=== PATIENT | female | born 1945 | race Caucasian/White ===

== ENCOUNTER 2016-11-16 11:15 | Inpatient (IN) | payer OTHER ==
[~2016-11-16] VITALS: Ht 172.7 cm; Wt 112.9 kg
--- NOTE | 2016-11-16 11:23 | ED GI/GU/ABDOMINAL COMPLAINT ---
History of Present Illness General Chief Complaint: General Adult Stated Complaint: CONSTIPATION, R/O GLUTEAL ABSCESS Source: patient, family, old records, EMS Exam Limitations: no limitations Vital Signs & Intake/Output Vital Signs & Intake/Output Vital Signs Date Time Temp Pulse Resp B/P Pulse O2 O2 Flow FiO2 Ox Delivery Rate 11/16 1929 97.8 91 21 112/76 92 11/16 1856 98.8 82 20 148/67 95 Room Air 11/16 1611 98.7 84 22 144/65 94 Room Air 11/16 1345 98.4 86 20 142/62 95 Room Air 11/16 1140 97.1 93 18 137/65 95 Room Air Allergies Coded Allergies: aspirin (UNKNOWN 11/16/16) Reconcile Medications Amoxicillin/Clavulanate Potass (Amox-Clav 875-125 MG Tablet) 875 MG-125 MG TABLET ANTIBIOTIC, INFECTION (Reported) Gabapentin 100 MG CAPSULE PAIN CONTROL (Reported) Hydrocodone/Acetaminophen (Hydrocodon-Acetaminophn 10-325) 10 MG-325 MG TABLET PAIN CONTROL (Reported) Triage Nurses Notes Reviewed? yes ? N Is pt currently ? No Onset: Abrupt Duration: week(s):, constant, getting worse Timing: recent history Quality/Severity: aching, sharpness Severity Numbers: 10 Location: rectal Radiation: no radiation Activities at Onset: none Prior Abdominal Problems: none No Modifying Factors: none HPI: 71-year-old female with history of rectal cancer requiring ileostomy in 2005 with reversal in 2006 presents to emergency room complaining of a 2 week history of left-sided rectal and buttock pain has been constant and progressively worsening associated with intermittent episodes of diarrhea and constipation for which she is currently on [id number] medications. The patient denies any recent fevers or chills however reports a generalized weakness and no appetite. no urinary sx she was seen by colorectal Dr. Kandy Noyola 2 weeks ago and paced on augmentin and was advised to have outpt ct and bloodwork obtained which pt has not had yet performed. (DAKOTAH ALVARADO,LIA) Past History Travel History Traveled to [place] past 21 day No Medical History Any Pertinent Medical History? see below for history Cardiovascular: hypertension Cancer(s): rectal ca Influenza Vaccine: 09/08/06 Surgical History Surgical History: lower anterior resection with diverting ileostomy 2006 reversal in 2006 Psychosocial History What is your primary language Latvian Tobacco Use: Never used Family History Hx Contributory? No (LIA COBOS) Review of Systems Review of Systems Constitutional: Reports: see HPI. All Other Systems: Reviewed and Negative Comments Review of systems: See HPI, All other systems negative. Constitutional, no chills no fever, no malaise HEENT: No visual changes no sore throat no congestion Cardiovascular: No chest pain , no palpitation Skin, no rashes, no change in skin Respiratory: No dyspnea no cough no sputum GI: No nausea no vomiting, diarrhea, constipation : No dysuria Muscle skeletal: No joint pain, no back pain, no neck pain, Neurologic: No numbness no headache Psych: No stress Heme/endocrine: No bruising no bleeding Immunology: No lymphadenopathy (LIA COBOS) Physical Exam Physical Exam General Appearance: well developed/nourished, alert, awake Gastrointestinal: soft, non-tender Comments: Well-developed well-nourished person in no acute distress HEENT: Normal EENT exam; PERRL, EOMI, HEAD is atraumatic. moist mucous membranes. Neck: Supple, normal range of motion Back: Nontender, no CVA tenderness. Full range of motion Cardiovascular: Regular rate and rhythms no murmurs rubs Respiratory: No respiratory distress. Patient speaking in full complete sentences. Breath sounds clear to auscultation bilaterally: NO W/R/R Abdomen: Soft, nontender nondistended, no appreciable organomegaly. Normal bowel sounds. No rebound/guarding Rectal: tender. Heme negative stool. No mass/hemorrhoid, no fissure. no noted abscess no induration or erythema noted to the buttocks or perirectal area Extremity: No edema, full range of motion of extremities Neuro: Alert oriented x3, motor sensory normal, There were no obvious focal neurologic abnormalities. Skin: No appreciable rash on exposed skin, skin is warm and dry. Psych: Mood and affect is normal, memory and judgment is normal. Core Measures ACS in differential dx? No Severe Sepsis Present: No Septic Shock Present: No (LIA COBOS) Progress Differential Diagnosis: bowel obstruction, colon cancer, diverticulitis, ischemic bowel, inflamm bowel dis, MALIGNANCY PERIRECTAL ABSCESS Plan of Care: Orders Procedure Date/time Status Nothing by Mouth 11/17 B Active CBC WITHOUT DIFFERENTIAL 11/17 600 Active BASIC ELECTROLYTES PLUS BUN&CR 12/19 0600 Active Pathway - chart 11/16 1707 Active Patient Data 11/16 1707 Active Code Status 11/16 1707 Active Admit to inpatient 11/16 1653 Active [place], Insertion/Removal/Asses 11/16 1647 Active CULTURE,URINE 11/16 1647 Active Add-on Test (ER Only) 11/16 1634 Active EKG 11/16 1622 Active PARTIAL THROMBOPLASTIN TIME 11/16 1155 Complete PROTHROMBIN TIME 11/16 1155 Complete Saline Lock 11/16 1142 Active BLOOD CULTURE 11/16 1142 Active COMPREHENSIVE METABOLIC PANEL 11/16 1142 Complete CBC WITHOUT DIFFERENTIAL 11/16 1142 Complete VTE Mechanical Prophylaxis 11/16 UNK Active Vital Signs 11/16 UNK Active Intake & Output 11/16 UNK Active [place], Insertion/Removal/Asses 11/16 UNK Active Activity/Ambulation 11/16 UNK Active Current Medications Sig/Dontae Start time Last Medication Dose Stop Time Status Admin Pantoprazole Sodium 40 MG DAILY 11/17 1000 AC (Protonix) Heparin Sodium 5,000 UNIT Q8 11/16 2200 AC (Porcine) Ampicillin Sodium/ 3,000 MG Q6 11/16 1800 AC Sulbactam Sodium (Unasyn) Sodium Chloride 100 ML (Normal Saline 0.9%) Ondansetron HCl 4 MG Q6P PRN 11/16 1715 AC (Zofran) Acetaminophen 650 MG Q6PRN PRN 11/16 1700 AC (Tylenol) Laboratory Tests 11/16/16 1155: Anion Gap 9, Estimated GFR > 60, BUN/Creatinine Ratio 12.9, Glucose 104 H, Calcium 8.8, Total Bilirubin 0.8, AST 10 L, ALT 16, Alkaline Phosphatase 99, Total Protein 6.6, Albumin 3.3 L, Globulin 3.3, Albumin/Globulin Ratio 1.0 L, PT 13.2 H, INR 1.26 H, APTT 27, CBC w Diff MAN DIFF ORDERED, RBC 2.51 L, MCV 106.1 H, MCH 34.6 H, RDW 18.2 H, MPV 10.0, Gran % 74.5, Lymphocytes % 10.7 L , Monocytes % 7.6, Eosinophils % 2.3, Basophils % 4.9 H, Absolute Granulocytes 4.0, Segmented Neutrophils 61, Band Neutrophils 12 H, Absolute Lymphocytes 0.6 L, Lymphocytes 22, Monocytes 3, Absolute Monocytes 0.4, Absolute Eosinophils 0.1 , Basophils 2, Absolute Basophils 0.3, Platelet Estimate ADEQUATE, Polychromasia 1+, Hypochromic-Microcytic 2+, Poikilocytosis 2+, Anisocytosis 1+, Macrocytic Cells 1+, PUBS MCHC 32.6 L Microbiology 11/16 1647 URINE ROUT: Urine Culture - ORD 11/16 1210 BLOOD: Blood Culture - RECD 11/16 1155 BLOOD: Blood Culture - RECD Labs ordered old records reviewed patient initially with Dilaudid 1 mg IV IV fluids CAT scan ordered case discussed with Dr. Turcios 11/16/2016 12:35:09 PM repeat evaluation patient reports pain has resolved with Dilaudid will continue to monitor I discussed the patient's family at length all of her lab results she has no history of anemia guaiac was negative we'll continue to monitor pending CAT scan patient reports improvement in pain with Dilaudid Repeat evaluation patient is resting in no apparent distress discussed with her family at length all of her CAT scan findings call was placed to her colorectal surgeon i spoke with dr cueva- will keep pt npo, advised unasyn iv, possible OR tomorrow. surgical pa malia gordon in dept to see pt will amdit to surgery. case d/w dr turcios. (DAKOTAH ALVARADO,LIA) Diagnostic Imaging: Viewed by Me: CT Scan. Discussed w/RAD: CT Scan. Radiology Impression: PATIENT: CARINE PAYTON PRESENT AGE: 71 PATIENT ACCOUNT NO: [id number] : 44 LOCATION: [facility] ORDERING PHYSICIAN: LIA ALVARADO SERVICE DATE: 11/16/16 EXAM TYPE: CAT - CT ABD & PELVIS W ORAL & IV CO EXAMINATION: CT ABDOMEN AND PELVIS WITH CONTRAST CLINICAL INFORMATION: Left buttock/rectal pain. History of rectal cancer. Evaluate for a perirectal abscess. COMPARISON: CT abdomen/pelvis dated 2011. TECHNIQUE: Multidetector volumetric imaging was performed of the abdomen and pelvis following the administration of oral and 95 mL of Optiray 320 intravenous contrast. Sagittal and coronal reformatted images were obtained on the technologist's workstation. DLP: 1144.49 mGy-cm. FINDINGS: LUNG BASES: There are mild bibasilar dependent atelectatic changes. The lung bases are otherwise clear. LIVER, GALLBLADDER, AND BILIARY TREE: The liver is normal in size, shape, and attenuation. No focal hepatic lesion or biliary ductal dilatation is present. The gallbladder is unremarkable with no evidence of radiopaque gallstones, gallbladder wall thickening, or obvious pericholecystic inflammatory changes. PANCREAS: Unremarkable. SPLEEN: Unremarkable. ADRENAL GLANDS: Unremarkable. KIDNEYS AND URETERS: The kidneys are normal in size, shape, and attenuation. No hydronephrosis, hydroureter, or calculi seen. No perinephric stranding. BLADDER: Unremarkable. GASTROINTESTINAL TRACT: There is no large or small bowel obstruction. There is mild fatty change of the descending colon and cecum bowel wall which could be the sequela of prior inflammation. If there is clinical concern, direct visualization via colonoscopy could be considered. There is interval development of a new perirectal abscess located posterior to the rectum which abuts the sacrum. This contains air and stool and measures approximately 7.9 x 6.5 x 12.2 cm. There is communication anteriorly with the rectum which measures approximately 2 cm in greatest diameter, seen on sagittal image 78/155 as well as axial image 613/929. There is a mildly enhancing wall as well as mild adjacent fat stranding. ABDOMINAL WALL: No significant hernia is appreciated. LYMPH NODES: Normal. VASCULAR: There are scattered atherosclerotic calcifications throughout the abdominal aorta and its branch vessels. There is no aneurysmal dilatation or dissection. PELVIC VISCERA: Unremarkable. OSSEOUS STRUCTURES: There is no lytic or blastic osseous lesion. There is mild lucency of the sacrum and coccyx, which could be related to prior treatment for the reported history of rectal cancer. IMPRESSION: 1. New perirectal abscess located posteriorly between the rectum and the sacrum. There is communication with the rectum posteriorly. The abscess contains air and stool. Mildly enhancing wall as well as adjacent fat stranding. 2. No large or small bowel obstruction. Mild fatty infiltration of the ascending colon and cecum bowel wall, which could be the sequela of prior inflammation. If there is clinical concern, direct visualization could help further characterize. DICTATED BY: KRYSTAL BERNSTEIN MD DATE/TIME DICTATED:11/16/161451 MATERIAL SPECIALIST:JESENIA DATE/TIME TRANSCRIBED:11/16/161451 CONFIDENTIAL, DO NOT COPY WITHOUT APPROPRIATE AUTHORIZATION. <Electronically signed in Other Vendor System> SIGNED BY: KRYSTAL BERNSTEIN MD 11/16/16 1600 Initial ED EKG: normal intervals, normal p-waves, normal QRS complex, normal sinus rhythm (80) Prior EKG: unchanged (2006) (LIA COBOS) Departure Departure Time of Disposition: 1700 Disposition: STILL A PATIENT Condition: Stable Clinical Impression Primary Impression: Perirectal abscess Referrals: NGOZI AYALA MD Referred to [facility] as new patient No Departure Forms: Customer Survey General Discharge Information Admission Note Spoke With: JARED CUEVA MD Documentation of Exam: Documentation of any treatments & extenuating circumstances including Concerns Regarding Discharge (functional status, medication knowledge or non-compliance, living conditions, etc.) that warrant an admission rather than observation: COLORECTAL SURG EVAL, TREND LABS, IV ABX, PREMATURE DISCHARGE WOULD BE MEDICALLY HARMFUL. (LIA COBOS) PA/FUR SORTER Co-Sign Statement Statement: ED Attending supervision documentation- [X] I saw and evaluated the patient. I have also reviewed all the pertinent lab results and diagnostic results. I agree with the findings and the plan of care as documented in the PA's/FUR SORTER's documentation. [X] I have reviewed the ED Record and agree with the PA's/FUR SORTER's documentation. [] Additions or exceptions (if any) to the PAs/FUR SORTER's note and plan are summarized below: [] (CYNTHIA CONNER,MARCELLO Clay)
--- NOTE | 2016-11-16 11:41 | NUR ---
PT TO ROOM21 BIBA FROM HOME FOR C/O POSSIBLE ABSCESS TO RECTAL AREA [id number], PAIN TO AREA, +TENDERNESS, NO REDNESS NOTED, ALSO C/O GENERAL WEAKNESS, NO APPETITE, CONSTIPATION. PT ON AUGMENTIN AND VICODIN FROM HER PCP. HX REDTAL CA,HTN,ASTHMA,PNEUMONIA. PT AFEBRILE,VSS. CHRISTIANO CLAIRE AT BEDSIDE FOR PT EVAL.
[2016-11-16] MEDS ORDERED: HYDROCODON-ACE1 EAC1 (11:51)
[2016-11-16] MEDS ORDERED: GABAPENTIN100 M2 (11:51)
[2016-11-16] MEDS ORDERED: AMOX-CLAV 875-1 EACH (11:52)
--- NOTE | 2016-11-16 12:02 | NUR ---
LABS DRAWN AND SENT (BLUE,SST,PINK,LAV,PERALTA)
[2016-11-16 12:07] LABS: ABSOLUTE BASOPHIL COUNT 0.3 /CUMM (0.0-0.2); ABSOLUTE EOSINOPHIL COUNT 0.1 /CUMM (0.0-0.7); ABSOLUTE LYMPH COUNT 0.6 /CUMM (1.2-3.4); ABSOLUTE MONOCYTE COUNT 0.4 /CUMM (0.10-0.60); BASOPHIL % 4.9 % (0.0-2.0); EOSINOPHIL % 2.3 % (0-5); GRANULOCYTE % 74.5 % (42.2-75.2); HEMATOCRIT 26.6 % (37-47); MEAN CORPUSCULAR HGB 34.6 PG (27.0-31.0); MEAN CORPUSCULAR HGB CONC 32.6 G/DL (33.0-37.0); MEAN CORPUSCULAR VOLUME 106.1 FL (81.0-99.0); PLATELET COUNT 321 /CUMM (130-400); RBC DISTRIBUTION WIDTH 18.2 % (11.5-14.5); RED BLOOD CELL CT 2.51 /CUMM (4.20-5.40); WHITE BLOOD CELL COUNT 5.4 /CUMM (4.8-10.8)
--- NOTE | 2016-11-16 12:16 | NUR ---
IV EST, PT MEIDCATED WITH DILAUDID PER EMAR. NS INFUSING PER EMAR. 2ND BC DRAWN AND SENT TO LAB.
--- NOTE | 2016-11-16 13:53 | NUR ---
PT C/O PAIN CAME BACK 06/08 NOW, MEDICATED WITH DILAUDID PER ORDER.
--- NOTE | 2016-11-16 14:11 | NUR ---
PT TO CAT SCAN BY STRETCHER.
--- NOTE | 2016-11-16 14:30 | NUR ---
PT RETURNED FROM CAT SCAN. AWAITING RESULTS.
--- NOTE | 2016-11-16 16:00 | CT SCAN REPORT ---
EXAMINATION: CT ABDOMEN AND PELVIS WITH CONTRAST CLINICAL INFORMATION: Left buttock/rectal pain. History of rectal cancer. Evaluate for a perirectal abscess. COMPARISON: CT abdomen/pelvis dated 03/31/2012. TECHNIQUE: Multidetector volumetric imaging was performed of the abdomen and pelvis following the administration of oral and 95 mL of Optiray 320 intravenous contrast. Sagittal and coronal reformatted images were obtained on the technologist's workstation. DLP: 1144.49 mGy-cm. FINDINGS: LUNG BASES: There are mild bibasilar dependent atelectatic changes. The lung bases are otherwise clear. LIVER, GALLBLADDER, AND BILIARY TREE: The liver is normal in size, shape, and attenuation. No focal hepatic lesion or biliary ductal dilatation is present. The gallbladder is unremarkable with no evidence of radiopaque gallstones, gallbladder wall thickening, or obvious pericholecystic inflammatory changes. PANCREAS: Unremarkable. SPLEEN: Unremarkable. ADRENAL GLANDS: Unremarkable. KIDNEYS AND URETERS: The kidneys are normal in size, shape, and attenuation. No hydronephrosis, hydroureter, or calculi seen. No perinephric stranding. BLADDER: Unremarkable. GASTROINTESTINAL TRACT: There is no large or small bowel obstruction. There is mild fatty change of the descending colon and cecum bowel wall which could be the sequela of prior inflammation. If there is clinical concern, direct visualization via colonoscopy could be considered. There is interval development of a new perirectal abscess located posterior to the rectum which abuts the sacrum. This contains air and stool and measures approximately 7.9 x 6.5 x 12.2 cm. There is communication anteriorly with the rectum which measures approximately 2 cm in greatest diameter, seen on sagittal image 78/155 as well as axial image 613/929. There is a mildly enhancing wall as well as mild adjacent fat stranding. ABDOMINAL WALL: No significant hernia is appreciated. LYMPH NODES: Normal. VASCULAR: There are scattered atherosclerotic calcifications throughout the abdominal aorta and its branch vessels. There is no aneurysmal dilatation or dissection. PELVIC VISCERA: Unremarkable. OSSEOUS STRUCTURES: There is no lytic or blastic osseous lesion. There is mild lucency of the sacrum and coccyx, which could be related to prior treatment for the reported history of rectal cancer. IMPRESSION: 1. New perirectal abscess located posteriorly between the rectum and the sacrum. There is communication with the rectum posteriorly. The abscess contains air and stool. Mildly enhancing wall as well as adjacent fat stranding. 2. No large or small bowel obstruction. Mild fatty infiltration of the ascending colon and cecum bowel wall, which could be the sequela of prior inflammation. If there is clinical concern, direct visualization could help further characterize.
--- NOTE | 2016-11-16 16:40 | NUR ---
PT MEIDCATED WITH DILAUDID, UNASYN AND NS INFUSING PER EMAR. SURGICAL PA AT BEDSIDE FOR PT EVAL.
--- NOTE | 2016-11-16 16:52 | Admission Core Measures ---
Admission Lab Results I reviewed the following labs: Laboratory Tests 11/16 1155 Chemistry Sodium (137 - 145 mmol/L) 138 Potassium (3.5 - 5.1 mmol/L) 4.1 Chloride (98 - 107 mmol/L) 101 Carbon Dioxide (22 - 30 mmol/L) 28 Anion Gap (5 - 16) 9 BUN (7 - 17 mg/dL) 9 Creatinine (0.5 - 1.0 mg/dL) 0.7 Estimated GFR (>60 ml/min) > 60 BUN/Creatinine Ratio (7 - 25 %) 12.9 Glucose (65 - 99 mg/dL) 104 H Calcium (8.4 - 10.2 mg/dL) 8.8 Total Bilirubin (0.2 - 1.3 mg/dL) 0.8 AST (14 - 36 U/L) 10 L ALT (9 - 52 U/L) 16 Alkaline Phosphatase (<127 U/L) 99 Total Protein (6.3 - 8.2 g/dL) 6.6 Albumin (3.5 - 5.0 g/dL) 3.3 L Globulin (1.9 - 4.2 gm/dL) 3.3 Albumin/Globulin Ratio (1.1 - 2.2 %) 1.0 L Coagulation PT Pending INR Pending APTT Pending Hematology CBC w Diff MAN DIFF ORDERED WBC (4.8 - 10.8 /CUMM) 5.4 RBC (4.20 - 5.40 /CUMM) 2.51 L Hgb (12.0 - 16.0 G/DL) 8.7 L Hct (37 - 47 %) 26.6 L MCV (81.0 - 99.0 FL) 106.1 H MCH (27.0 - 31.0 PG) 34.6 H RDW (11.5 - 14.5 %) 18.2 H Plt Count (130 - 400 /CUMM) 321 MPV (7.4 - 10.4 FL) 10.0 Gran % (42.2 - 75.2 %) 74.5 Lymphocytes % (20.5 - 51.1 %) 10.7 L Monocytes % (1.7 - 9.3 %) 7.6 Eosinophils % (0 - 5 %) 2.3 Basophils % (0.0 - 2.0 %) 4.9 H Absolute Granulocytes (1.4 - 6.5 /CUMM) 4.0 Segmented Neutrophils (42.2 - 75.2 %) 61 Band Neutrophils (0.0 - 5.0 %) 12 H Absolute Lymphocytes (1.2 - 3.4 /CUMM) 0.6 L Lymphocytes (20.5 - 51.1 %) 22 Monocytes (1.7 - 9.3 %) 3 Absolute Monocytes (0.10 - 0.60 /CUMM) 0.4 Absolute Eosinophils (0.0 - 0.7 /CUMM) 0.1 Basophils (0.0 - 2.0 %) 2 Absolute Basophils (0.0 - 0.2 /CUMM) 0.3 Platelet Estimate (ADEQUATE) ADEQUATE Polychromasia 1+ Hypochromic-Microcytic 2+ Poikilocytosis 2+ Anisocytosis 1+ Macrocytic Cells 1+ PUBS MCHC (33.0 - 37.0 G/DL) 32.6 L Acute Coronary Syndrome Inclusion Criteria ACS Diagnosis No Inpatient Core Measures LDL Reminder: If No, please order W/I first 24hr of stay Congestive Heart Failure Inclusion Criteria CHF Diagnosis No Cerebrovascular accident Inclusion Criteria CVA/TIA Diagnosis No Inpatient Core Measures Bedside Swallow Eval Reminder: If BSE failed, place ST order Antithrombotic Reminder: Order Antithrombotic Medication by end of day 2 Antithrombotic Reminder: Document Reason Antithrombotic Not ordered by end of day 2 AFIB/Flutter Reminder: If Present, add to problem list AFIB/Flutter Reminder: Order Anticoag Medication for pts with AFIB/Flutter Atherosclerosis Reminder: If Present, add to problem list LDL Reminder: If No, please order W/I first 24hr of stay PT Order Reminder: If No, please order Venous thromboembolism Inpatient Core Measures VTE Risk Factors: Age > 40, Cancer/chemo/oth therapy VTE Prophylaxis Ordered Inpt Mech & Pharm No Mech VTE prophylaxis d/t No contraindications No VTE Pharm Prophylaxis d/t No contraindications Inclusion Criteria - Per Current guidelines, there needs to be overlap - treatment for the first 5 days of Warfarin therapy. - Parenteral Anticoagulation (IV or SC) needs to be - given along with Warfarin therapy. VTE Diagnosis No VTE Type NONE VTE Confirmed by (Test) NONE Problem List As ranked by this Provider includes Assessment & Plan 1. Perirectal abscess
--- NOTE | 2016-11-16 17:00 | History & Physical Pre-Op ---
LESLEY VINCENT 11/16/16 1651: General Information and HPI MD Statement: I have seen and personally examined CARINE PAYTON and documented this H&P. The patient is a 71 year old F who presented with a patient stated chief complaint of active pain for 2 weeks. Source of Information: patient Exam Limitations: no limitations History of Present Illness: 71-year-old female known to colorectal surgical service has been treated conservatively for a questionable perirectal abscess over the past 2-3 weeks. The patient complains of about 3 weeks of perirectal discomfort with associated difficulty defecating and urinating. The patient initially saw her primary care Dr. Walters who started her on a regiment of by mouth antibiotics and when necessary pain medications. The patient was scheduled to see her colorectal surgery group and did last week who continued her on antibiotics and changed her pain medications. She was scheduled for outpatient radiology and laboratory studies but her pain became significantly worse over the past day or 2 so she came to our emergency room today. She reports her pain as constant and sharp in nature located in her perianal area tenderness significantly increased when she tries to defecate. Her bowel movements have been loose and spontaneous. She complains of associated anorexia and night sweats but denies any fevers. Additionally, she reports difficulty voiding and a feeling of increased pressure in her lower abdomen. She knows my to the current time. Allergies/Medications Allergies: Coded Allergies: aspirin (UNKNOWN 11/16/16) Home Med list Amoxicillin/Clavulanate Potass (Amox-Clav 875-125 MG Tablet) 875 MG-125 MG TABLET ANTIBIOTIC, INFECTION (Reported) Gabapentin 100 MG CAPSULE PAIN CONTROL (Reported) Hydrocodone/Acetaminophen (Hydrocodon-Acetaminophn 10-325) 10 MG-325 MG TABLET PAIN CONTROL (Reported) Past History Medical History Cardiovascular: hypertension Respiratory: asthma, pneumonia Cancer(s): rectal ca Influenza Vaccine: 09/08/06 Surgical History Pertinent Surgical History: lower anterior resection with diverting ileostomy 2006 reversal in 2006, with creation of an ileostomy and subsequent reversal in , tonsillectomy Past Family/Social History Psychosocial History Where Do You Live? Home Who Do You Live With? spouse Services at Home None Smoking Status: Former Smoker ETOH Use: denies use Illicit Drug Use: denies illicit drug use Functional Ability ADLs Independent: dressing, eating, toileting, bathing. Ambulation: independent IADLs Independent: shopping, housework, finances, food prep, telephone, transportation , medication admin. Employment History Employment: Retired Review of Systems Review of Systems Cardiovascular: Denies: chest pain, palpitations. Respiratory: Denies: cough, short of breath. Exam & Diagnostic Data Last 24 Hrs of Vital Signs/I&O Vital Signs Date Time Temp Pulse Resp B/P Pulse O2 O2 Flow FiO2 Ox Delivery Rate 11/16 1611 98.7 84 22 144/65 94 Room Air 11/16 1345 98.4 86 20 142/62 95 Room Air 11/16 1140 97.1 93 18 137/65 95 Room Air Intake & Output 11/16 1600 11/16 0800 11/16 0000 Intake Total 1000 Output Total Balance 1000 Intake, IV 1000 Patient 220 lb Weight Laboratory Tests 11/16 1155 Chemistry Sodium (137 - 145 mmol/L) 138 Potassium (3.5 - 5.1 mmol/L) 4.1 Chloride (98 - 107 mmol/L) 101 Carbon Dioxide (22 - 30 mmol/L) 28 Anion Gap (5 - 16) 9 BUN (7 - 17 mg/dL) 9 Creatinine (0.5 - 1.0 mg/dL) 0.7 Estimated GFR (>60 ml/min) > 60 BUN/Creatinine Ratio (7 - 25 %) 12.9 Glucose (65 - 99 mg/dL) 104 H Calcium (8.4 - 10.2 mg/dL) 8.8 Total Bilirubin (0.2 - 1.3 mg/dL) 0.8 AST (14 - 36 U/L) 10 L ALT (9 - 52 U/L) 16 Alkaline Phosphatase (<127 U/L) 99 Total Protein (6.3 - 8.2 g/dL) 6.6 Albumin (3.5 - 5.0 g/dL) 3.3 L Globulin (1.9 - 4.2 gm/dL) 3.3 Albumin/Globulin Ratio (1.1 - 2.2 %) 1.0 L Coagulation PT Pending INR Pending APTT Pending Hematology CBC w Diff MAN DIFF ORDERED WBC (4.8 - 10.8 /CUMM) 5.4 RBC (4.20 - 5.40 /CUMM) 2.51 L Hgb (12.0 - 16.0 G/DL) 8.7 L Hct (37 - 47 %) 26.6 L MCV (81.0 - 99.0 FL) 106.1 H MCH (27.0 - 31.0 PG) 34.6 H RDW (11.5 - 14.5 %) 18.2 H Plt Count (130 - 400 /CUMM) 321 MPV (7.4 - 10.4 FL) 10.0 Gran % (42.2 - 75.2 %) 74.5 Lymphocytes % (20.5 - 51.1 %) 10.7 L Monocytes % (1.7 - 9.3 %) 7.6 Eosinophils % (0 - 5 %) 2.3 Basophils % (0.0 - 2.0 %) 4.9 H Absolute Granulocytes (1.4 - 6.5 /CUMM) 4.0 Segmented Neutrophils (42.2 - 75.2 %) 61 Band Neutrophils (0.0 - 5.0 %) 12 H Absolute Lymphocytes (1.2 - 3.4 /CUMM) 0.6 L Lymphocytes (20.5 - 51.1 %) 22 Monocytes (1.7 - 9.3 %) 3 Absolute Monocytes (0.10 - 0.60 /CUMM) 0.4 Absolute Eosinophils (0.0 - 0.7 /CUMM) 0.1 Basophils (0.0 - 2.0 %) 2 Absolute Basophils (0.0 - 0.2 /CUMM) 0.3 Platelet Estimate (ADEQUATE) ADEQUATE Polychromasia 1+ Hypochromic-Microcytic 2+ Poikilocytosis 2+ Anisocytosis 1+ Macrocytic Cells 1+ PUBS MCHC (33.0 - 37.0 G/DL) 32.6 L CAT scan abdomen and pelvis showing a perirectal abscess Physical Exam: Gen.: Alert and obvious distress Skin: Warm and dry without jaundice Neck: supple with no lymphadenopathy Chest: Nontender with equal expansion Cardiac: S1-S2 regular Pulmonary: Bibasilar breath sounds are equal with good exchange Abdomen: Soft, nondistended, moderate suprapubic tenderness without rebound or guarding. Bowel sounds are positive and in no masses or hernias appreciated. Extremities: Bilateral reduction is warm without calf tenderness or significant edema. Assessment/Plan Assessment/Plan: Assessment: 71-year-old female with a perirectal abscess. The patient has associated dysuria and her pain is not currently adequately managed with home by mouth meds. Plan: Admit to surgical service The patient be kept nothing by mouth with IV fluids Start IV antibiotics PRN antiemetics, antipyretics, and pain meds Out of bed and ambulate GI and DVT prophylaxis Possible operative intervention versus interventional radiology intervention As Ranked By This Provider Problem List: 1. Perirectal abscess LETICIA CONNER,ÁNGELA 11/17/16 1018: Attending MD Review Statement Attending Statement Attending MD Statement: examined this patient, discuss w/resident/PA/BOOK CLEANER, agreed w/resident/PA/BOOK CLEANER Attending Assessment/Plan: Seen and examined this morning prior to OR. CAT scan and lab work reviewed. Patient was initially seen by me on 11/10/2016 in the office with a vague complain of the coccygeal discomfort exacerbated by pressure to the area. She denied any changes in her bowel habits or drainage per vagina. She also did not have any systemic symptoms, such as fevers, chills, or malaise. On both QUINCY and anoscopy, there was no evidence of either infection or fistulization. Patient was scheduled for an outpatient CT scan C/A/P and surveillance colonoscopy due to history of rectal cancer s/p neoadjuvant chemoradiation therapy, LAR with diverting loop ileostomy and stoma takedown in 2005. Patient's last colonoscopy was approximately 5 years ago. Patient's pain had worsened throughout the week and she started draining and stool per vagina. She presented to the emergency room on 11/16/2016 for an evaluation. She remained afebrile with normal white count. However, her CAT scan revealed a large presacral abscess and soft tissue reaction in the left buttock. Patient has been admitted to the hospital, made nothing by mouth, and started on broad-spectrum IV antibiotic coverage. Patient is scheduled for exam under anesthesia and abscess drainage this morning.
--- NOTE | 2016-11-16 17:12 | NUR ---
RAD AT BEDSIDE FOR CHEST XRAY.
--- NOTE | 2016-11-16 17:20 | NUR ---
ADMISSION INFO GIVEN TO SALES FLOOR TEAM MEMBER. AWAITING BED ASSIGNMENT.
[2016-11-16 17:26] LABS: PT 13.2 SEC (9.4-12.5); PTT 27 SEC (25-37)
--- NOTE | 2016-11-16 17:30 | RADIOLOGY REPORT ---
EXAMINATION: XR PORTABLE CHEST CLINICAL INFORMATION: Perirectal abscess. Preoperative evaluation. COMPARISON: Multiple priors, most recent CT chest dated 03/31/2012. TECHNIQUE: Portable view of the chest was obtained. FINDINGS: The lungs are clear. The cardiomediastinal silhouette is normal in size. There is no pleural effusion or pneumothorax. IMPRESSION: No acute cardiopulmonary disease.
--- NOTE | 2016-11-16 18:37 | NUR ---
PT BED ASSIGNMENT 204-1
--- NOTE | 2016-11-16 19:03 | NUR ---
REPORT GIVEN TO DON MCKEON TO [facility], [facility] CALLED FOR TRANSPORT.
--- NOTE | 2016-11-16 19:12 | NUR ---
TRANSPORT HERE FOR PT
[2016-11-16 19:29] VITALS: BP 112/76
--- NOTE | 2016-11-16 19:35 | NUR ---
ADMISSION NOTE: PT ARRIVED TO ROOM WITH [facility] AND FAMILY VIA BED, A/OX3, ROOM AIR, PAIN 9/10 TO RECTUM, VSS, SKIN INTACT, ABCESS IS INTERNAL, IV SITE INTACT, FLUIDS RUNNING PER MD ORDER, PT LYING ON RT SIDE TO PREVENT WORSENING PAIN, ORIENTED TO ROOM, WILL CONTINUE TO MONITOR.
[2016-11-17 00:12] VITALS: BP 132/62
[2016-11-17 08:00] LABS: ABSOLUTE BASOPHIL COUNT 0 /CUMM (0.0-0.2); ABSOLUTE EOSINOPHIL COUNT 0.1 /CUMM (0.0-0.7); ABSOLUTE GRANULOCYTE CT 4.7 /CUMM (1.4-6.5); ABSOLUTE LYMPH COUNT 0.9 /CUMM (1.2-3.4); ABSOLUTE MONOCYTE COUNT 0.4 /CUMM (0.10-0.60); BASOPHIL % 0.1 % (0.0-2.0); EOSINOPHIL % 1.6 % (0-5); HEMATOCRIT 24.3 % (37-47); MEAN CORPUSCULAR HGB 35.5 PG (27.0-31.0); MEAN CORPUSCULAR VOLUME 107.4 FL (81.0-99.0); MEAN PLATELET VOLUME 10.3 FL (7.4-10.4); PLATELET COUNT 317 /CUMM (130-400); RBC DISTRIBUTION WIDTH 18.8 % (11.5-14.5); RED BLOOD CELL CT 2.27 /CUMM (4.20-5.40)
[2016-11-17 08:26] VITALS: BP 130/78
--- NOTE | 2016-11-17 10:42 | Operative Report ---
Operative/Inv Procedure Report Surgery Date: 11/17/16 Name of Procedure: 1. exam under anesthesia with anal block 2. anoscopy 3. vaginoscopy 4. transrectal drainage of presacral collection 5. incsion and drainage of left buttock collection Pre-Operative Diagnosis: 1. presacral collection 2. colovaginal fistula Post-Operative Diagnosis: same Estimated Blood Loss: less than 50ml Surgeon/Chin Strap Maker: ÁNGELA KELLY MD Anesthesia: local monitored anesthesi, block Drains: left buttock rossana Specimens: rectal anastomotic tissue Complications: none Condition: stable to recovery room Operative Indication: Patient is a 71-year-old woman with remote history of rectal cancer in 2006 status post neoadjuvant chemoradiation therapy followed by LAR with diverting loop ileostomy and subsequent stoma reversal. Patient had her last surveillance colonoscopy approximately 5 years ago. She was seen in the office on 11/10/2016 with a new onset vague coccygeal pain. At that time she denied any systemic symptoms, changes in bowel habits, or drainage from vagina. On QUINCY and anoscopy there was no evidence of infection or fistulization. The patient had been scheduled for an outpatient CT C/A/P and surveillance colonoscopy. However, her pain had worsened and she presented to the emergency room on 11/16/2016 for an evaluation. She was afebrile with normal white count, but her CAT scan revealed a large presacral collection communicating with the vagina and soft tissue induration of the left buttock. After discussion with the patient, the decision was made to take him to the operating room for exam under anesthesia and drainage. All risks and benefits of the procedure were explained to patient in detail, and she expressed understanding and agreement with the same. Operative/Procedure Note Note: Patient was taken to the operating room and placed in supine position on the operating table. She was already on [id number] antibiotics and subcutaneous heparin. She also had a Guadarrama catheter inserted on admission. Bilateral lower extremity SCDs were placed on both legs. Anesthesia was established by the anesthesia team. The patient's legs were placed in the candy canes and she was put in the lithotomy position. All appropriate pressure points were padded and the patient was secured to the operating table. The perineum was prepped and draped in the standard surgical fashion. The timeout was done. A perianal block was administered with 20 mL of half percent Marcaine with epinephrine. Large amounts of stool were washed out from vagina and the rectum. Once both vagina and rectum were irrigated and all stool was evacuated, a large anterior rectal defect was visualized. It was communicating with the posterior wall of vagina, [place] and mid to high colovaginal fistula. There was also a large defect in the left posterior lateral wall of the rectum that was freely communicating with the presacral space. The edges of the fistula appeared to be very friable. There were biopsied and sent for stat pathology. The presacral space was also copiously irrigated. There was no evidence of active infection or purulent drainage. However, more than 50% of the circumference of colorectal anastomosis had broken down. Then the attention was moved to the left buttock. It appeared somewhat indurated and tense. Two small incisions were made in the left buttock way from the anal verge. There appeared a small amount of purulent fluid. It was not in direct communication with the presacral space. A [place] drain was placed through those incisions. The procedure was terminated. The sponge and instrument counts were correct in the end of the procedure. The patient tolerated the procedure well. She was wakened up and taken to recovery room in stable condition. Findings: 1. Large presacral collection communicating with the rectum 2. 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 > 50% colorectal anastamosis breakdown 4. Left buttock soft tissue infection, not directly communicating with the presacral collection Discharge Disposition: back to the floor Additional Comments: Patient will need a diverting procedure to control the colovaginal fistula output
[2016-11-17 11:30] VITALS: BP 126/60
--- NOTE | 2016-11-17 14:45 | NUR ---
NURSING NOTE: PATIENT WENT TO OR VIA STRETCHER AT 0830 AND RETURNED VIA STRETCHER AT 1130. RECEIVED REPORT FROM PACU NURSE SHANA. VSS STABLE; NEW IV PLACED IN OR (#20 LH), D5 RUNNING INTO PATIENT. SHANDRA PAD IN PLACE FOR BLOOD COLLECTION. WILL CONTINUE TO MONITOR.
[2016-11-17 16:19] VITALS: BP 138/60
--- NOTE | 2016-11-17 17:12 | PN- General Surgery ---
Subjective Subjective: Post op check awake, alert post op pain tolerable, no nausea Objective Vital Signs and I&Os Vital Signs Date Time Temp Pulse Resp B/P Pulse O2 O2 Flow FiO2 Ox Delivery Rate 11/17 1619 97.4 77 19 138/60 93 11/17 1130 97.9 74 20 126/60 98 Nasal 3.0L Cannula 11/17 08 98.0 71 20 130/78 90 Room Air 11/17 0012 98.4 84 20 132/62 91 11/16 192 97.8 91 21 112/76 92 11/16 1856 98.8 82 20 148/67 95 Room Air Intake & Output 11/17 1600 11/17 0800 11/17 0000 11/16 1600 11/16 0800 11/16 0000 Intake Total 800 6160 023 4879 Output Total 400 700 900 Balance 400 300 -400 1000 Intake, IV 800 7403 621 8941 Intake, Oral 0 0 Number 3 Bowel Movements Output, Urine 400 700 900 Patient 220 lb 220 lb Weight Physical Exam: vss, afebrile General: alert and oriented times three Abd: soft, nt. +bs Ext: warm, no edema L buttock rossana - dry Current Medications: Current Medications Sig/Dontae Start time Last Medication Dose Route Stop Time Status Admin Acetaminophen 1,000 MG .STK-MED ONE 11/17 08 DC IV 11/17 08 Acetaminophen 650 MG Q6PRN PRN 11/16 1700 AC PO Ampicillin Sodium/ 3,000 MG Q6 11/16 1800 AC 11/17 Sulbactam Sodium IV 1152 Sodium Chloride 100 ML Dextrose/Sodium 1,000 ML .Q10H 11/16 1700 AC 11/17 Chloride IV 1209 Fentanyl Citrate 100 MCG .STK-MED ONE 11/17 0812 DC IM 11/17 0813 Heparin Sodium 5,000 UNIT Q8 11/16 2200 AC 11/17 (Porcine) SC 1151 Hydromorphone HCl 2 MG .STK-MED ONE 11/17 0640 DC IM 11/17 0641 Hydromorphone HCl 2 MG .STK-MED ONE 11/17 0432 DC IM 11/17 0433 Hydromorphone HCl 2 MG .STK-MED ONE 11/17 0139 DC IM 11/17 0140 Hydromorphone HCl 0 .STK-MED ONE 11/16 1851 DC .ROUTE Hydromorphone HCl 1 MG Q2-3 HRS NEEDED.. 11/16 1715 AC 11/17 IV 1622 Midazolam HCl 2 MG .STK-MED ONE 11/17 0812 DC IM 11/17 0813 Ondansetron HCl 4 MG Q6P PRN 11/16 1715 AC IV Pantoprazole Sodium 40 MG DAILY 11/17 1000 AC 11/17 IV 1152 Patient Medication 1 ED .STK-MED ONE 11/17 1356 DC Teaching ED 11/17 1357 Patient Medication 1 UNIT ONE NR 11/16 1730 [facility] ED 11/16 1800 Patient Medication 1 UNIT ONE NR 11/16 1730 [facility] ED 11/16 1800 Sodium Chloride 1,000 ML BOLUS ONE 11/16 1630 DC 11/16 IV 11/16 1729 1640 Assessment/Plan Assessment/Plan 71 yo female s/p rectovaginal fistula washout Discussed with Dr Manzo Pt will need diverting colostomy Likely plan for surgery in 2-3 days keep npo/ivf may have ice chips hep sc for dvt ppx continue unasyn fu cultures Core Measures/Miscellaneous Guadarrama Catheter Date In: 11/17/16 Still Needed? Yes (aba op colovag fistula) Venous Thromboembolism VTE Risk Factors: Age > 40, Surgery VTE Contraindications: No Contraindications VTE Prophylaxis Ordered Inpt Mech & Pharm VTE Diagnosis: No VTE Type: NONE VTE Confirmed by (Test): NONE Beta Gabriela Is Beta Gabriela a Home Med? No Antibiotics Is Patient on Antibiotics? Yes If Yes: infection
[2016-11-18 00:19] VITALS: BP 140/70
--- NOTE | 2016-11-18 07:29 | PN- General Surgery ---
See Addendum Subjective Subjective: The patient seen this morning postoperatively day #1. She complains of some mild buttock soreness which is adequately controlled with current pain regiment. She denies any abdominal pain or nausea and has no other complaints at the current time. Objective Vital Signs and I&Os Vital Signs Date Time Temp Pulse Resp B/P Pulse O2 O2 Flow FiO2 Ox Delivery Rate 11/18 0019 97.6 80 20 140/70 92 Room Air 11/17 1619 97.4 77 19 138/60 93 11/17 1130 97.9 74 20 126/60 98 Nasal 3.0L Cannula 11/17 08 98.0 71 20 130/78 90 Room Air Intake & Output 11/18 0811/18 0000 11/17 1600 11/17 0800 11/17 0000 11/16 1600 Intake Total 251 266 4372 500 1000 Output Total 250 500 400 700 900 Balance -250 300 400 300 -400 1000 Intake, IV 231 303 5628 500 1000 Intake, Oral 0 0 0 Number 3 Bowel Movements Output, Urine 250 500 400 700 900 Patient 220 lb 220 lb Weight Physical Exam: Gen.: Alert and obvious distress Skin: Warm and dry Abdomen: Soft, obese, nontender, bowel sounds positive. Surgical site with dressing that has a moderate amount of drainage and a [place] drain in place. Extremity: Bilateral lower extremities are warm without calf tenderness or significant edema Assessment/Plan Assessment/Plan Assessment: 71-year-old male status post washout of left buttock collection due to a colovaginal fistula postoperative day #1. The patient is progressing as expected and her pain is under adequate control. Plan: Continue nothing by mouth and IV hydration Continue IV antibiotics and follow-up or cultures Out of bed and ambulate GI and DVT prophylaxis Probable diverting colostomy with the next day or 2 Follow-up morning laboratory results PRN pain medications, antiemetics, antipyretics. Core Measures/Miscellaneous Guadarrama Catheter Date In: 11/17/16 Venous Thromboembolism VTE Risk Factors: Age > 40, Surgery VTE Contraindications: No Contraindications VTE Prophylaxis Ordered Inpt Mech & Pharm VTE Diagnosis: No VTE Type: NONE VTE Confirmed by (Test): NONE Beta Gabriela Is Beta Gabriela a Home Med? No Antibiotics Is Patient on Antibiotics? Yes If Yes: infection
[2016-11-18 08:03] LABS: ABSOLUTE BASOPHIL COUNT 0 /CUMM (0.0-0.2); ABSOLUTE EOSINOPHIL COUNT 0 /CUMM (0.0-0.7); ABSOLUTE GRANULOCYTE CT 5.1 /CUMM (1.4-6.5); ABSOLUTE LYMPH COUNT 0.6 /CUMM (1.2-3.4); ABSOLUTE MONOCYTE COUNT 0.1 /CUMM (0.10-0.60); BASOPHIL % 0.2 % (0.0-2.0); EOSINOPHIL % 0.3 % (0-5); GRANULOCYTE % 87.6 % (42.2-75.2); MEAN CORPUSCULAR HGB 35.8 PG (27.0-31.0); MEAN CORPUSCULAR HGB CONC 33.7 G/DL (33.0-37.0); MEAN CORPUSCULAR VOLUME 106.3 FL (81.0-99.0); PLATELET COUNT 303 /CUMM (130-400); RBC DISTRIBUTION WIDTH 17.8 % (11.5-14.5); RED BLOOD CELL CT 1.87 /CUMM (4.20-5.40); WHITE BLOOD CELL COUNT 5.8 /CUMM (4.8-10.8)
[2016-11-18 08:18] LABS: HEMATOCRIT 19.9 % (37-47)
[2016-11-18 08:41] VITALS: BP 142/60
[2016-11-18 09:27] LABS: ABSOLUTE BASOPHIL COUNT 0 /CUMM (0.0-0.2); BASOPHIL % 0 % (0.0-2.0); RED BLOOD CELL CT 1.93 /CUMM (4.20-5.40)
[2016-11-18 09:34] LABS: ABSOLUTE EOSINOPHIL COUNT 0.1 /CUMM (0.0-0.7); ABSOLUTE GRANULOCYTE CT 5.1 /CUMM (1.4-6.5); ABSOLUTE LYMPH COUNT 0.6 /CUMM (1.2-3.4); ABSOLUTE MONOCYTE COUNT 0.1 /CUMM (0.10-0.60); EOSINOPHIL % 0.9 % (0-5); GRANULOCYTE % 88.1 % (42.2-75.2); MEAN CORPUSCULAR HGB 34.9 PG (27.0-31.0); MEAN CORPUSCULAR HGB CONC 32.8 G/DL (33.0-37.0); MEAN CORPUSCULAR VOLUME 106.3 FL (81.0-99.0); MEAN PLATELET VOLUME 9.9 FL (7.4-10.4); PLATELET COUNT 304 /CUMM (130-400); RBC DISTRIBUTION WIDTH 18.1 % (11.5-14.5)
[2016-11-18 09:38] LABS: HEMATOCRIT 20.5 % (37-47)
[2016-11-18 09:49] LABS: WHITE BLOOD CELL COUNT 5.8 /CUMM (4.8-10.8)
[2016-11-18 10:42] VITALS: BP 126/78
--- NOTE | 2016-11-18 14:38 | NUR ---
NURSING NOTE: PT INCONTENENT OF MEDIUM BLOODY BM; SOME CLOTS NOTED, GUIAC +. CARE GIVEN, ABD PAD CHANGED NEAR LETI DRAIN, LESLEY PA AWARE. PT S/P 1 UNIT BLOOD; ANTIBX INFUSING THEN TO HAVE 2ND UNIT. HOLD 1400PM SC HEPARIN PER LESLEY PA. CONT TO MONITOR. NO RECHECK CBC TODAY PER LESLEY PA. CONT TO MONITOR.
[2016-11-18 15:54] VITALS: BP 130/54
--- NOTE | 2016-11-18 21:28 | NUR ---
UNASYN TIMES CHANGED DUE TO DELAY IN GIVING AT 1800 BECAUSE OF BLOOD TRANSFUSION
[2016-11-19 01:49] VITALS: BP 104/67
--- NOTE | 2016-11-19 07:02 | PN- General Surgery ---
See Addendum Subjective Subjective: The patient seen this morning postoperatively day #2. She still complains of some moderate perirectal pain for which her pain medicines to help. She reports feeling very thirsty and dehydrated. Per nursing the patient's urine output was on the low side this morning. Otherwise she reports feeling comfortable and denies any nausea or fevers. Objective Vital Signs and I&Os Vital Signs Date Time Temp Pulse Resp B/P Pulse O2 O2 Flow FiO2 Ox Delivery Rate 11/19 0149 98.1 91 16 104/67 91 Room Air 11/18 1554 98.0 85 15 130/54 92 Room Air 11/18 1042 97.8 80 20 126/78 92 Room Air 11/18 0841 97.5 80 20 142/60 90 Room Air Intake & Output 11/19 0800 11/19 0000 11/18 1600 11/18 0800 11/18 0000 11/17 1600 Intake Total 224 345 4995 800 800 800 Output Total 150 450 650 250 500 400 Balance 730 500 351 550 300 400 Intake, Blood 350 1 Product Intake, IV 400 100 300 800 800 800 Intake, Oral 480 500 700 0 0 0 Number 1 0 Bowel Movements Output, Urine 150 450 650 250 500 400 Patient 220 lb Weight Physical Exam: Gen.: Alert and in no obvious distress Skin: Warm and dry Abdomen: Soft, obese, nontender, nondistended, bowel sounds positive. Buttock area with [place] drain intact still draining brownish mucky discharge. Extremities: Bilateral lower extremities are warm without calf tenderness. Assessment/Plan Assessment/Plan Assessment: 71-year-old female status post washout of perirectal collection and biopsy postoperative day #2. The patient is progressing as expected and her pain is under adequate control. She does appear somewhat dehydrated possibly due to getting Lasix between her units of blood transfusion yesterday. Plan: Encouraged increased by mouth intake Increase IV fluids to 75 ML's/hour Continue antibiotics and follow up OR cultures and biopsy Bolus 500 ML's of normal saline Follow-up morning labs to monitor H&H Renew Guadarrama catheter Out of bed and ambulate GI and DVT prophylaxis Core Measures/Miscellaneous Guadarrama Catheter Date In: 11/17/16 Venous Thromboembolism VTE Risk Factors: Age > 40, Surgery VTE Contraindications: No Contraindications VTE Prophylaxis Ordered Inpt Mech & Pharm VTE Diagnosis: No VTE Type: NONE VTE Confirmed by (Test): NONE Beta Gabriela Is Beta Gabriela a Home Med? No Antibiotics Is Patient on Antibiotics? Yes If Yes: infection
[2016-11-19 07:51] LABS: ABSOLUTE BASOPHIL COUNT 0 /CUMM (0.0-0.2); ABSOLUTE EOSINOPHIL COUNT 0.1 /CUMM (0.0-0.7); ABSOLUTE GRANULOCYTE CT 3.7 /CUMM (1.4-6.5); ABSOLUTE MONOCYTE COUNT 0.5 /CUMM (0.10-0.60); BASOPHIL % 0.8 % (0.0-2.0); GRANULOCYTE % 68.9 % (42.2-75.2); MEAN CORPUSCULAR HGB 33.4 PG (27.0-31.0); MEAN CORPUSCULAR HGB CONC 32.9 G/DL (33.0-37.0); MEAN CORPUSCULAR VOLUME 101.6 FL (81.0-99.0); MEAN PLATELET VOLUME 10.3 FL (7.4-10.4); PLATELET COUNT 334 /CUMM (130-400); RBC DISTRIBUTION WIDTH 23.1 % (11.5-14.5)
[2016-11-19 08:00] VITALS: BP 148/72
[2016-11-19 08:46] LABS: HEMATOCRIT 25.9 % (37-47); WHITE BLOOD CELL COUNT 5.9 /CUMM (4.8-10.8)
[2016-11-19 14:13] VITALS: BP 132/84
[2016-11-19 14:41] VITALS: BP 128/74
--- NOTE | 2016-11-19 14:43 | NUR ---
NURSING NOTE: PT CURRENTLY RECEIVING 2ND UNIT PRBC PER MD ORDER, 15 MINUTE VITALS OBTAIBED ABD STABLE AFTER PT AWAKE, A/OX3, ROOM AIR 92%, PT GETTING DILAUDID PRN PAIN, VISITING WITH FAMILY AT THIS TIME, CONT TO MONITOR. CALL LEE IN REACH.
[2016-11-20 00:24] VITALS: BP 160/86
[2016-11-20 00:33] VITALS: BP 146/70
--- NOTE | 2016-11-20 07:33 | PN- General Surgery ---
See Addendum Subjective Subjective: The patient seen this morning postoperatively day #3. She still complains of incisional tenderness but otherwise has no other complaints. She denies any abdominal pain or nausea and is anxious with regards to her prep later this evening. Objective Vital Signs and I&Os Vital Signs Date Time Temp Pulse Resp B/P Pulse O2 O2 Flow FiO2 Ox Delivery Rate 11/20 0033 146/70 11/20 0024 97.8 82 20 160/86 92 11/20 0000 92 Nasal 1.0L Cannula 11/19 1441 98.2 80 20 128/74 92 Room Air 11/19 1413 97.9 76 20 132/84 92 Room Air 11/19 0800 98.0 85 20 148/72 92 Room Air Intake & Output 11/20 0800 11/20 0000 11/19 1600 11/19 0800 11/19 0000 11/18 1600 Intake Total 1225 1501 958 838 1809 Output Total 125 325 400 150 450 650 Balance -814 321 1996 730 500 351 Intake, Blood 350 1 350 1 Product Intake, IV 375 700 400 100 300 Intake, Oral 500 800 480 500 700 Number 0 1 Bowel Movements Output, Urine 125 325 400 150 450 650 Patient 220 lb Weight Physical Exam: Gen.: Alert and obvious distress Skin: Warm and dry Abdomen: Soft, obese, nontender, bowel sounds positive. Buttock area with [place] drain in place with rust-colored drainage on the dressing Extremity: Bilateral x-rays warm without calf tenderness or significant edema. Assessment/Plan Assessment/Plan Assessment: 71-year-old female status post washout of perianal collection secondary to colovaginal fistula postoperative day #3. The patient is pressing as expected and her pain is under adequate control. Plan: The patient will be brought to the operating theater tomorrow for a diverting colostomy Begin bowel preparation this evening Strict I's and O's Follow-up labs and monitor H&H Continue IV antibiotics Clear liquid diet until midnight then nothing by mouth IV hydration Increase PRN pain medications Out of bed ambulate GI and DVT prophylaxis Core Measures/Miscellaneous Guadarrama Catheter Date In: 11/17/16 Venous Thromboembolism VTE Risk Factors: Age > 40, Surgery VTE Contraindications: No Contraindications VTE Prophylaxis Ordered Inpt Mech & Pharm VTE Diagnosis: No VTE Type: NONE VTE Confirmed by (Test): NONE Beta Gabriela Is Beta Gabriela a Home Med? No Antibiotics Is Patient on Antibiotics? Yes If Yes: infection
[2016-11-20 07:55] LABS: ABSOLUTE BASOPHIL COUNT 0 /CUMM (0.0-0.2); ABSOLUTE EOSINOPHIL COUNT 0.1 /CUMM (0.0-0.7); ABSOLUTE GRANULOCYTE CT 3.2 /CUMM (1.4-6.5); ABSOLUTE LYMPH COUNT 1.4 /CUMM (1.2-3.4); ABSOLUTE MONOCYTE COUNT 0.3 /CUMM (0.10-0.60); BASOPHIL % 0.3 % (0.0-2.0); EOSINOPHIL % 2.5 % (0-5); GRANULOCYTE % 63.9 % (42.2-75.2); MEAN CORPUSCULAR HGB CONC 34.3 G/DL (33.0-37.0); MEAN PLATELET VOLUME 11.4 FL (7.4-10.4); PLATELET COUNT 230 /CUMM (130-400); RBC DISTRIBUTION WIDTH 23.6 % (11.5-14.5)
[2016-11-20 08:11] LABS: HEMATOCRIT 31.1 % (37-47); MEAN CORPUSCULAR VOLUME 96.2 FL (81.0-99.0); RED BLOOD CELL CT 3.23 /CUMM (4.20-5.40)
[2016-11-20 08:24] VITALS: BP 160/82
[2016-11-20 14:30] LABS: RED BLOOD CELL CT 2.55 /CUMM (4.20-5.40)
[2016-11-20 16:01] VITALS: BP 128/82
--- NOTE | 2016-11-20 20:26 | NUR ---
NURSING NOTE: PATIENT C/O HEARING HERSELF WHEEZE, RESPIRATORY CALLED AND EVALUATED PATIENT. CRACKLES HEARD FROM BASES 3/[address] PAITENT DESATTED TO 88% ON 1L VIA NC. BUMPED UP BY RESPIRATORY TO 2L. SURGICAL PA LESLEY NOTIFIED. NEW ORDER, DECREASE FLUIDS FROM 100ML/HR TO 75ML/HR AND ONE TIME LASIX 10MG. WILL CONTINUE TO MONITOR.
[2016-11-21 00:41] VITALS: BP 148/72
[2016-11-21 09:24] VITALS: BP 138/70
[2016-11-21 16:00] VITALS: BP 140/68
--- NOTE | 2016-11-21 16:14 | Operative Report ---
Operative/Inv Procedure Report Surgery Date: 11/21/16 Name of Procedure: 1. Laparoscopic diverting loop ileostomy 2. Perineal washout Pre-Operative Diagnosis: Colovaginal fistula Post-Operative Diagnosis: Same Estimated Blood Loss: less than 50ml Surgeon/Packaging Machine Supplies Distributor: MD ÁNGELA KELLY Anesthesia: general endotracheal tube Specimens: Small bowel Complications: None Operative Indication: Stable to recovery room patient is a 71-year-old woman with history of rectal cancer status post neoadjuvant chemoradiation therapy followed by low anterior resection with diverting loop ileostomy and subsequent ileostomy reversal 10 years ago. Patient presented to the hospital 6 days ago with a large presacral collection communicating with the rectum and high colovaginal fistula. The patient was taken to the operating room on 11/17/16 for drainage of the presacral collection. Upon the examination under anesthesia, once the high colovaginal fistula was identified in the radiated tissues, patient required fecal diversion procedure. All the risks and benefits of the procedure were explained to patient in detail, and she expressed understanding and agreement with the same. Operative/Procedure Note Note: Patient was taken to the operating room and placed in supine position on the operating table. She was already on subcutaneous heparin for DVT prophylaxis and [id number] IV antibiotics. She already had a Guadarrama catheter inserted. Bilateral lower extremity sequential compression devices were placed on both legs. General anesthesia was established by the anesthesia team. Orogastric tube was placed. All pressure points were appropriately padded, and the patient was secured to the operating table. The abdomen was prepped and draped in the standard surgical fashion. The timeout was carried out. A small supraumbilical midline incision was made in the skin and a 5 mm trocar was inserted into the abdomen under the direct visualization using the Optiview technique. The abdomen was insufflated to 15 mmHg. The patient tolerated insufflation well. The camera was inserted within the abdomen and the hollow viscus was in examined for any evidence of injury or bleeding due to trocar insertion. There was none. The abdomen and liver were also examined for any evidence of cancer recurrence. There was none. 2 additional 5 mm trochars were placed under direct visualization in the left lower quadrant and at the midline approximately 2 finger breaths above the symphysis pubis. The attention was moved to the right lower quadrant. The previous small bowel aoda-nv-eluc functional end-to-end anastomosis was identified. There was filmy adhesions between the omentum and the anastomosis. There were taken down using the blunt and sharp dissection. There was also slight filmy adhesions between the descending colon and the anterior abdominal wall. There also taken down using the sharp dissection. Once it was established that the small bowel anastomosis would easily reach the anterior abdominal wall, and approximately silver dollar sized incision was made in the skin and subcutaneous tissues in the right lower quadrant overlying the rectus sheath muscle. It was deepened down to the level of the fascia, and the fascia was opened in the cruciate manner. The rectus muscle fibers were splayed and the peritoneum was entered. There small bowel anastomosis was secured with a [place] clamp and exteriorized. The abdomen was deflated and the trochars were removed. The trocar incisions were irrigated with carpus amounts of antibiotic irrigation. There were closed with subcuticular 4-0 Vicryl sutures and covered with sterile dressings. The attention was moved to maturing the stoma. The TA staple line creating the common channel was excised and sent to pathology. The double barrel ileostomy was matured in the Yudi fashion. The stoma appliance was placed over. The patient was moved to the modified lithotomy position with the legs in Yang stirrups. Both rectum and vagina were irrigated with 3 L of sterile water. There incisions in the left buttock with a [place] in them were irrigated with antibiotic irrigating solution. The sponge and instrument counts were correct in the end the procedure. The patient tolerated the procedure well. There were no complications. The patient was wakened up and taken to recovery room in stable condition. Findings: A large presacral collection and high colovaginal fistula, a left buttock abscess Discharge Disposition: back to the floor
--- NOTE | 2016-11-21 17:10 | NUR ---
NURSING NOTE: TRANSPORTED TO THE OR @ 1111 FOR SURGICAL PLACEMENT OF ILLIOSTOMY. PAATIENT IS A&O X3.
--- NOTE | 2016-11-21 17:15 | PN- General Surgery ---
Subjective Subjective: Reports incisional pain and soreness. No nausea. Still in pacu at this time. Reports some left sided buttock pain. Objective Vital Signs and I&Os Vital Signs Date Time Temp Pulse Resp B/P Pulse O2 O2 Flow FiO2 Ox Delivery Rate 11/21 0924 98.3 72 20 138/70 95 Nasal 2.0L Cannula 11/21 0041 97.5 72 21 148/72 95 Nasal Cannula 11/21 0000 Nasal 2.0L Cannula Intake & Output 11/21 1600 11/21 0800 11/21 0000 11/20 1600 11/20 0800 11/20 0000 Intake Total 224 407 1939 8572 830 4594 Output Total 400 2250 800 300 125 325 Balance 120 -0487 995 2959 475 900 Intake, Blood 350 Product Intake, IV 520 600 550 800 600 375 Intake, Oral 1200 500 500 Number 0 0 Bowel Movements Output, Urine 400 2250 800 300 125 325 Physical Exam: General - alert & oriented x 3. comfortable. no acute distress. Lungs - decreased breath sounds b/l. bases. clear Cardiac - s1s2. Abdomen - obese. dressings c/d/i. colostomy moist & pink, with scant serous drainage in bag. - ardon in place Extremities - warm bilaterally. calves soft and nontender b/l. venodynes active b/l. Assessment/Plan Assessment/Plan This 71 year old white female with colovaginal fistula is POD#0 s/p lap diverting loop ileostomy, perineal washout advance diet as tolerated pain control as ordered added neurontin 100 mg tid keep ardon for now & check u/a with urine cx continue iv unasyn hep sc - dvt ppx protonix - gi ppx f/u am labs ileostomy teaching PT eval case management discussed above with Core Measures/Miscellaneous Ardon Catheter Date In: 11/17/16 Venous Thromboembolism VTE Risk Factors: Age > 40, Surgery VTE Contraindications: No Contraindications VTE Prophylaxis Ordered Inpt Mech & Pharm VTE Diagnosis: No VTE Type: NONE VTE Confirmed by (Test): NONE Beta Gabriela Is Beta Gabriela a Home Med? No Antibiotics Is Patient on Antibiotics? Yes If Yes: infection
[2016-11-22 00:08] VITALS: BP 144/70
--- NOTE | 2016-11-22 07:48 | NUR ---
PT C/O GAS AND ABD PAIN (SEE EMAR). ILIOSTOMY OUTPUT 30ML SEROSANGUINOUS LIQUID. PT ON IVF, IVABX, AND IV PAIN MEDS . PANROSE DRAIN IN PLACE DRAINING ONTO PAD SMALL AMOUNT OF SEROUS DRAINAGE. MEHTA IN PLACE PER ORDER. VSS. WILL CONTINUE TO MONITOR.
[2016-11-22 08:25] VITALS: BP 111/69
[2016-11-22 08:27] LABS: ABSOLUTE BASOPHIL COUNT 0 /CUMM (0.0-0.2); ABSOLUTE EOSINOPHIL COUNT 0.2 /CUMM (0.0-0.7); ABSOLUTE GRANULOCYTE CT 2.9 /CUMM (1.4-6.5); ABSOLUTE LYMPH COUNT 0.7 /CUMM (1.2-3.4); ABSOLUTE MONOCYTE COUNT 0 /CUMM (0.10-0.60); BASOPHIL % 0.1 % (0.0-2.0); EOSINOPHIL % 4.3 % (0-5); MEAN CORPUSCULAR HGB 32.9 PG (27.0-31.0); MEAN CORPUSCULAR HGB CONC 33.6 G/DL (33.0-37.0); MEAN CORPUSCULAR VOLUME 97.9 FL (81.0-99.0); RBC DISTRIBUTION WIDTH 22.8 % (11.5-14.5); RED BLOOD CELL CT 3.17 /CUMM (4.20-5.40); WHITE BLOOD CELL COUNT 3.8 /CUMM (4.8-10.8)
[2016-11-22 09:26] LABS: PLATELET COUNT 203 /CUMM (130-400)
--- NOTE | 2016-11-22 10:55 | PN- General Surgery ---
See Addendum Subjective Subjective: pod#1 s/p loop ileostomy resting comfortably but arousable denies cp, sob, no n+v pain controlled with meds Objective Vital Signs and I&Os Vital Signs Date Time Temp Pulse Resp B/P Pulse O2 O2 Flow FiO2 Ox Delivery Rate 11/22 825 97.7 72 20 111/69 93 Nasal 2.0L Cannula 11/22 0008 97.6 78 20 144/70 94 11/22 0000 96 Nasal 2.0L Cannula 11/21 1600 97.0 76 20 140/68 96 Nasal 2.0L Cannula Intake & Output 11/22 1600 11/22 0800 11/22 0000 11/21 1600 11/21 0800 11/21 0000 Intake Total 820 540 875 908 8364 Output Total 330 332 743 9498 800 Balance 490 210 120 -1650 950 Intake, IV 600 300 520 600 550 Intake, Oral 363 826 0796 Number 0 Bowel Movements Output, Stool 30 30 Output, Urine 300 311 259 6728 800 Physical Exam: cv; rrr lungs: clear abd: soft, drsg clean and dry no guarding to palp stoma: pink, viable, ostomy with serosanguinous ligu ext: distal cms intact no calf tenderness ardon: clear urine Assessment/Plan Assessment/Plan surgical stable plan d/c ardon today oob to chair cont clear diet Core Measures/Miscellaneous Ardon Catheter Date In: 11/17/16 Venous Thromboembolism VTE Risk Factors: Age > 40, Surgery VTE Contraindications: No Contraindications VTE Prophylaxis Ordered Inpt Mech & Pharm VTE Diagnosis: No VTE Type: NONE VTE Confirmed by (Test): NONE Beta Gabriela Is Beta Gabriela a Home Med? No Antibiotics Is Patient on Antibiotics? Yes If Yes: infection
[2016-11-22 16:03] VITALS: BP 138/76
[2016-11-23 00:09] VITALS: BP 149/70
--- NOTE | 2016-11-23 02:19 | NUR ---
ILIOSTOMY APPLIANCE CHANGED
--- NOTE | 2016-11-23 07:53 | PN- General Surgery ---
See Addendum Subjective Subjective: Patient reporting no acute overnight events. C/O peristomal abdominal pain but denies nausea, vomitting, hiccuping, or belching. Denies chest pain, shortness of breath and difficulty breathing. Is feeling frustrated with recovery process. Objective Vital Signs and I&Os Vital Signs Date Time Temp Pulse Resp B/P Pulse O2 O2 Flow FiO2 Ox Delivery Rate 11/23 0009 97.6 82 20 149/70 95 Room Air 11/23 0000 96 Nasal 2.0L Cannula 11/22 1603 98.0 76 20 138/76 94 Nasal 2.0L Cannula 11/22 0825 97.7 72 20 111/69 93 Nasal 2.0L Cannula Intake & Output 11/23 0811/23 0000 11/22 1600 11/22 0811/22 0000 11/21 1600 Intake Total 9354 140 2874 820 540 520 Output Total 750 650 900 330 330 400 Balance 410 10 110 490 210 120 Intake, IV 800 300 760 600 300 520 Intake, Oral 360 360 250 220 240 Number 0 Bowel Movements Output, Stool 300 30 30 Output, Urine 450 650 900 300 300 400 Physical Exam: General: Alert and oriented x3, no acute distress Cardiac: RRR, s1s2 Pulmonary: Bilateral lung sounds clear to auscultation Abdomen: Soft, aba-stomal tenderness with palpation. Stoma viable but edematous, small amount of serous drainage noted, other incision dry and intact. No bowel sounds auscultated on exam Aba-rectal area cellulitic Assessment/Plan Assessment/Plan This is a 71 year old female, POD 3, s/p loop ileostomy -Continue current pain regimen -DC ardon today -OOB with PT -F/U urine culture today -Continue clear liquid diet today, await bowel function return -Will d/w Dr. Price Core Measures/Miscellaneous Ardon Catheter Date In: 11/17/16 Venous Thromboembolism VTE Risk Factors: Age > 40, Surgery VTE Contraindications: No Contraindications VTE Prophylaxis Ordered Inpt Mech & Pharm VTE Diagnosis: No VTE Type: NONE VTE Confirmed by (Test): NONE Beta Gabriela Is Beta Gabriela a Home Med? No Antibiotics Is Patient on Antibiotics? Yes If Yes: infection
[2016-11-23 08:05] VITALS: BP 140/73
[2016-11-23 08:06] LABS: ABSOLUTE BASOPHIL COUNT 0 /CUMM (0.0-0.2); ABSOLUTE EOSINOPHIL COUNT 0.2 /CUMM (0.0-0.7); ABSOLUTE GRANULOCYTE CT 3.9 /CUMM (1.4-6.5); ABSOLUTE LYMPH COUNT 0.7 /CUMM (1.2-3.4); ABSOLUTE MONOCYTE COUNT 0.1 /CUMM (0.10-0.60); BASOPHIL % 0.1 % (0.0-2.0); EOSINOPHIL % 4.2 % (0-5); HEMATOCRIT 34.1 % (37-47); MEAN CORPUSCULAR HGB 32.5 PG (27.0-31.0); MEAN CORPUSCULAR HGB CONC 33.1 G/DL (33.0-37.0); MEAN PLATELET VOLUME 11.3 FL (7.4-10.4); PLATELET COUNT 216 /CUMM (130-400); RBC DISTRIBUTION WIDTH 22.9 % (11.5-14.5); RED BLOOD CELL CT 3.48 /CUMM (4.20-5.40); WHITE BLOOD CELL COUNT 4.9 /CUMM (4.8-10.8)
[2016-11-23 15:54] VITALS: BP 142/62
[2016-11-24 00:07] VITALS: BP 144/68
--- NOTE | 2016-11-24 04:51 | NUR ---
LATE ENTRY FOR 11/230 PT C/O PAIN STILL AT A 10 ON SCALE 1-10. SEE EMAR LAST MEDS GIVEN. CALL TO SURGICAL PA TO INFORM OF PT C/O. SEE EMAR. 2200 PT QUIETLY RESTING AT THIS TIME. NO ADDITIONAL MEDS GIVEN.
--- NOTE | 2016-11-24 06:55 | PN- General Surgery ---
See Addendum Subjective Subjective: The patient was seen this morning postoperatively day #3. She still complains of significant pain at the surgical sites but somewhat better this morning with change in pain regiment. She is tolerating a clear liquid diet without nausea and has no other complaints at the current time. She denies any chest pain or difficulty breathing. Objective Vital Signs and I&Os Vital Signs Date Time Temp Pulse Resp B/P Pulse O2 O2 Flow FiO2 Ox Delivery Rate 11/24 0007 97.6 84 20 144/68 95 11/24 0000 93 Nasal 2.0L Cannula 11/23 1554 98.8 87 19 142/62 92 Nasal 2.0L Cannula 11/23 0805 98.0 81 20 140/73 93 Nasal 2.0L Cannula Intake & Output 11/24 0811/24 0000 11/23 1600 11/23 0800 11/23 0000 11/22 1600 Intake Total 1040 1240 2529 491 0742 Output Total 1900 900 750 650 900 Balance -860 340 410 10 110 Intake, IV 800 720 800 300 760 Intake, Oral 240 520 360 360 250 Output, Stool 900 350 300 Output, Urine 1000 550 450 650 900 Physical Exam: Gen.: Alert and in obvious distress Skin: Warm and dry Cardiac: S1-S2 regular Pulmonary: Bilateral breath sounds are equal and decreased at bases Abdomen: Soft, obese, appropriate incisional tenderness, bowel sounds positive. The ileostomy is pink and slightly engorged with positive output in the bag. Extremities: Bilateral lower extremities are warm without calf tenderness Assessment/Plan Assessment/Plan Assessment: 71-year-old female status post creation of diverting loop ileostomy postoperative day #3. Status post drainage of perirectal collection secondary to colovaginal fistula postoperative day #7. The patient is progressing as expected, she is having adequate output through her ileostomy, and her pain is more adequately controlled. Plan: Renew Guadarrama catheter with strict I's and O's Out of bed ambulate Continue current pain regiment Follow-up morning laboratory studies GI and DVT prophylaxis Keep on IV antibiotics Daily ostomy and surgical site maintenance and dressing changes The patient be kept nothing by mouth past midnight for an additional washouts tomorrow of the perirectal collection Core Measures/Miscellaneous Guadarrama Catheter Date In: 11/17/16 Still Needed? Yes Venous Thromboembolism VTE Risk Factors: Age > 40, Surgery VTE Contraindications: No Contraindications VTE Prophylaxis Ordered Inpt Mech & Pharm VTE Diagnosis: No VTE Type: NONE VTE Confirmed by (Test): NONE Beta Gabriela Is Beta Gabriela a Home Med? No Antibiotics Is Patient on Antibiotics? Yes If Yes: infection
[2016-11-24 08:03] VITALS: BP 122/82
--- NOTE | 2016-11-24 09:31 | NUR ---
NURSING NOTE: LAB AND MST UNABLE TO DRAW AM LABS, PT REFUSING TO HAVE BLOOD DRAW AGAIN.LESLEY ALVARADO AWARE, ATTENDING AWARE. CONT TO MONITOR.
--- NOTE | 2016-11-24 11:41 | NUR ---
NURSING NOTE: PT MEDICATED FOR PAIN AND NAUSEA PER PT REQUEST, LESLEY ALVARADO CALLED AND MADE AWARE. CONT TO MONITOR
--- NOTE | 2016-11-24 11:50 | NUR ---
PHYSICAL THERAPY: Attempted to work with patient this A.M. Family present at bedside. Patient refusing to participate in P.T. at this time due to recent medicine admission. Patient educated on the benefits of mobility; P.T. stated she will f/u as able.
--- NOTE | 2016-11-24 13:22 | NUR ---
PHYSICAL THERAPY: F/U WITH PATIENT WHO WAS AGREEABLE TO WORK W/ P.T. AT THIS TIME. UPON ROLLING, IT WAS OBSERVED THAT PATIENT ABSCESS WAS LEAKING. CALLED RN AND MST FOR ASSIST TO CLEAN UP; PATIENT REFUSING TO CONTINUE P.T. AFTER.
--- NOTE | 2016-11-24 15:50 | NUR ---
NURSING NOTE: 1500PM ANTIBX NOT IN CASETTE; PHAMR[facility]Y CALLED AND IT IS COMING OUT ON THE CART, NEXT SHIFT RN MADE AWARE AND WILL HANG IT WHEN ARRIVES TO PHARMACY
[2016-11-24 16:18] VITALS: BP 150/72
[2016-11-24 23:42] VITALS: BP 148/78
--- NOTE | 2016-11-25 07:22 | PN- Student ---
LIDIA HARMON 11/25/16 0714: Subjective Subjective: Post-op day 4 Patient is complaining of significant discomfort and pain, especially over perineal region. She is breathing fast and shallow this morning and appears uncomfortable in bed. She reports of significant acid reflux this AM, states she 's never had it this bad before. She states she is a little nauseous from it, and feels like she is close to vomiting but has not vomited, coughed or spit up. She denies headaches, lightheadedness, chest pain, shortness of breath. She has not tried to ambulate as she feels like she "can't sit up" on her own. She has been NPO this morning awaiting for washout of region in OR later today. Objective Objective: Temp: 97.6, HR: 76, RR: 22, BP: 148/78, O2: 94% RA Urine: 325mL Gen.: Alert, oriented. Appears uncomfortable Skin: Warm and dry Cardiac: S1-S2 regular Pulmonary: Bilateral breath sounds decreased at bases. Shallow breaths Abdomen: Soft, obese, non-tender. Incisional tenderness, bowel sounds positive. Stoma is pink, engorged. Fecal content in bag. Extremities: Bilateral lower extremities are warm, some lower extremity edema. Positive bilateral calf tenderness. No cord palpated Assessment/Plan Assessment: 71-year-old female status post creation of diverting loop ileostomy postoperative day #4. Status post drainage of perirectal collection secondary to colovaginal fistula postoperative day #7. - Continue NPO for OR later today - Renew Guadarrama catheter with strict I's and O's - Encourage out of bed, ambulation - Continue current pain regiment - Follow-up morning laboratory studies - GI prophylaxis: IV protonix - DVT prophylaxis: ALPs, heparin - Keep on IV antibiotics - Daily ostomy and surgical site maintenance and dressing changes DURAN VILCHIS 11/25/16 0806: Addendum Addendum Assessed this patient, abdominal distension increasing, bilateral lower extremity tightness. Stat multiview abdomen ordered, stat ultrasound bilaterla lower extremity ordered. will discuss with dr. araujo
[2016-11-25 07:39] VITALS: BP 154/80
--- NOTE | 2016-11-25 08:04 | NUR ---
nursing note: pt c/o nausea during morning report; yenny tan called and made aware. iv protonix given, iv phenergan infusing. abdomen more distended. abd xray and ble us ordered. pt c/o "pain with breathing at times: yenny aware of above. bp 156/80, hr 74, rr 20 92% on 2l nc, cont to monitor.
[2016-11-25 08:07] VITALS: BP 156/80
--- NOTE | 2016-11-25 08:15 | NUR ---
NURSING NOTE: PT VOMITED 150ML GREEN LIQUID, DURAN ALVARADO AWARE. OR SCRUB DONE
--- NOTE | 2016-11-25 08:30 | NUR ---
NURSING NOTE: SKIN INTACT; LETI DRAIN TO PERIRECTAL AREA IN TACT; PT WITH DRECREASED MOBILITY DUE TO POST OP AND PAIN AT LETI DRAIN SITE, PT TURNS SELF IN BED, REFUSING SIZEWISE AT THIS TIME. CONT TO MONITOR,
--- NOTE | 2016-11-25 08:40 | NUR ---
NURSING NOTE: PT LEFT FLOOR VIA STRETCHER WITH DIOSTRBUTION FOR ABD XRAY AND BLE US PER MD ORDER. WILL PLACE NGT WHEN PT RETURNS TO FLOOR. DENIES NAUSEA AT THIS TIME, NO VOMITING NOTED. AWAIT RETURN TO FLOOR. CONT TO MONITOR.TICKET TO RIDE COMPLETE.
--- NOTE | 2016-11-25 09:47 | RADIOLOGY REPORT ---
EXAMINATION: XR ABDOMEN MULTIPLE VIEWS CLINICAL INDICATION: Abdominal distention and vomiting. COMPARISON: CXR from 11/16/[address] from 11/16/2016. TECHNIQUE: Abdomen, 2 views FINDINGS: The left costophrenic sulcus appears blunted. There is enteric contrast within the nondilated right colon. Small bowel is diffusely distended with gas, measuring up to approximately 3.5 cm. Gas is present within the rectum. No pneumoperitoneum. IMPRESSION: 1. Compared to 11/16/2016, there is new, diffuse gaseous distention of small bowel, suggestive of small bowel obstruction. No pneumoperitoneum. 2. Trace left pleural effusion.
--- NOTE | 2016-11-25 09:55 | NUR ---
NURSING NOTE: PT BACK TO FLOOR VIA STRETCHER WITH DISTRIBUTION FROM XRAY/US, PT AWAKE, A/OX3, WILL MEDICATE FOR PAIN WHEN MEDS DUE. NPO, WILL PLACE NGT PER MD ORDER. CONT TO MONITOR. SETTLED INTO BED. NEEDS IN REACH
--- NOTE | 2016-11-25 10:14 | ULTRASOUND REPORT ---
EXAMINATION: US TRIPLEX LOWER EXTREMITY, BILATERAL CLINICAL INFORMATION: Bilateral calf pain and swelling COMPARISON: None. TECHNIQUE: Color-flow triplex imaging with spectral analysis and compression Doppler were performed on the bilateral lower extremities. FINDINGS: Respiratory variation, normal compression and augmented flow are noted throughout the bilateral lower extremities. The visualized common femoral vein, superficial femoral vein, profunda femoral vein, popliteal vein and mid calf peroneal and posterior tibial venous segments show no evidence of deep venous thrombosis. There is no Vazquez's cyst. IMPRESSION: Normal triplex scan without evidence of deep venous thrombosis involving the bilateral lower extremities.
--- NOTE | 2016-11-25 10:54 | NUR ---
NURSING NOTE: february supervisior attempted to place ngt; pt requesting to have ngt placed in or. or and yenny tan made aware. cont to monitor
[2016-11-25 11:03] VITALS: BP 146/78
--- NOTE | 2016-11-25 11:03 | NUR ---
TRISTA NOTE: PT LEFT FLOOR VIA STRETCHER WITH DISTIRBUTION FOR OR. PT AWAKE, A/OX3, VITALS DOCUMENTED, IV PATENT, ILEOSTOMY/MEHTA INTACT. PT REQUESTING TO HAVE NGT PLACED IN OR; OR AND DURAN ALVARADO AWARE. PT REFUSING BLOOD WORK "THEY CAN DO IT WHEN THEY KNOCK ME OUT" DURAN ALVARADO AWARE, DENTURES REMOVED AND PLACED IN BEDSIDE TABLE; OR CHECKLIST COMPLETE; STAMPER SENT. GLASSES REMOVED. LETI DRAIN INTACT. NPO, AT BEDSIDE.CONT TO MONITOR.
--- NOTE | 2016-11-25 12:30 | NUR ---
PHYSICAL THERAPY- ATTEMPTED TO SEE PT THIS AM; PT OFF THE FLOOR FOR DOPPLER TO R/O B DVTs, NEEDS TO HAVE XRAY AND NGT PLACEMENT, PER NSG, PT HAS BEEN ALSO VOMITING AND NOT DOING WELL THIS AM. WILL DEFER P.T. TODAY IN LIGHT OF MULTIPLE MEDICAL ISSUES AND GOING BACK TO OR FOR WASHOUT. WILL FOLLOW APPOPRIATE.
[2016-11-25 13:01] LABS: ABSOLUTE BASOPHIL COUNT 0 /CUMM (0.0-0.2); ABSOLUTE EOSINOPHIL COUNT 0.1 /CUMM (0.0-0.7); PLATELET COUNT 184 /CUMM (130-400); RED BLOOD CELL CT 3.15 /CUMM (4.20-5.40); WHITE BLOOD CELL COUNT 4.5 /CUMM (4.8-10.8)
[2016-11-25 13:17] LABS: ABSOLUTE GRANULOCYTE CT 3.8 /CUMM (1.4-6.5); ABSOLUTE LYMPH COUNT 0.2 /CUMM (1.2-3.4); ABSOLUTE MONOCYTE COUNT 0.3 /CUMM (0.10-0.60); BASOPHIL % 0.8 % (0.0-2.0); EOSINOPHIL % 2.2 % (0-5); MEAN CORPUSCULAR HGB 32.5 PG (27.0-31.0); MEAN CORPUSCULAR VOLUME 98.3 FL (81.0-99.0); MEAN PLATELET VOLUME 11.5 FL (7.4-10.4); RBC DISTRIBUTION WIDTH 23.3 % (11.5-14.5)
--- NOTE | 2016-11-25 14:24 | RADIOLOGY REPORT ---
EXAMINATION: XR ABDOMEN CLINICAL INDICATION: Status post NG tube placement. COMPARISON: Abdominal x-ray 11/25/2016. TECHNIQUE: Single AP view of the abdomen. FINDINGS: Single AP view of the abdomen is somewhat limited secondary to patient body habitus as well as partial exclusion of the left hemiabdomen. There is been interval placement of a nasogastric tube with the distal tip of the catheter visualized terminating in the region of the gastric antrum/duodenal bulb. Stable appearance of the abdominal bowel loops. Redemonstrated is gaseous distention of loops of small bowel within the central abdomen as well as within the left hemiabdomen, grossly unchanged relative to the prior examination. Retained oral contrast is identified within loops of bowel within the right hemiabdomen. IMPRESSION: Interval placement of a nasogastric tube, which is visualized terminating in the expected region of the gastric antrum/duodenal bulb. Otherwise, stable appearance of the abdomen. Persistently dilated, air-filled loops of small bowel within the abdomen.
[2016-11-25 14:45] VITALS: BP 142/70
--- NOTE | 2016-11-25 14:45 | NUR ---
TRISTA NOTE: PT BACK TO FLOOR VIA STRETCHER WITH DISTIRBUION FROM OR, PT S/P PERIRECTAL WASHOUT; LETI DRAIN REMOVAL AND VESSEL LOOP DRAIN PLACEMENT, VESSEL LOOP IN PLACE; ABD PAD/MESH PANTIES IN PLACE. ALPS TO BLE. WILL MEDICATE FOR PAIN. ILEOSTOMY/MEHTA INTACT. 02 2L NC, VITALS OBTAINED AND STABLE, IV INTACT; DURAN ALVARADO CALLED FOR IVF CLARIFICATION; PER DURAN CORDOVA WAITING FOR LABS TO COME BACK. NGT TO Laurie RICHTER INTACT; LWS PER MD ORDER. PT REFUSING BED ALARM, SETTLED INTO BED, NEEDS IN REACH, WILL GIVE REPORT TO NEXT SHIFT RN, 1500PM UNASYN COMING UP FROM PHARMACY SOON; NEXT SHIFT RN TO HANG, CONT TO MONITOR.
[2016-11-25 16:13] VITALS: BP 118/72
--- NOTE | 2016-11-25 17:52 | PN- General Surgery ---
Subjective Subjective: POST-OP NOTE She reports feeling much better compared to this morning prior to the ng tube. She has a sore throat, but is no longer nauseous and not short of breath. She was taken back to the OR earlier today for another washout of her perineum and probing of her loop ileostomy. Venous ultrasound studies done earlier of her lower legs, which were negative for blood clots. Objective Vital Signs and I&Os Vital Signs Date Time Temp Pulse Resp B/P Pulse O2 O2 Flow FiO2 Ox Delivery Rate 11/25 1613 97.7 74 21 118/72 94 Nasal 3.0L Cannula 11/25 1445 97.9 80 20 142/70 92 Nasal 2.0L Cannula 11/25 1103 98.4 74 20 146/78 92 Nasal 2.0L Cannula 11/25 0807 97.6 74 20 156/80 92 Nasal 2.0L Cannula 11/25 0800 93 Nasal 2.0L Cannula 11/25 0739 97.8 77 20 154/80 95 Nasal 2.0L Cannula 11/25 0000 Nasal 2.0L Cannula 11/24 2342 97.6 74 22 148/78 94 Nasal 2.0L Cannula Intake & Output 11/25 1600 11/25 0800 11/25 0000 11/24 1600 11/24 0800 11/24 0000 Intake Total 400 768 419 9665 920 640 Output Total 400 325 800 003 370 0651 Balance 0 475 150 700 20 -1260 Intake, IV 400 800 800 800 800 400 Intake, Oral 0 150 550 120 240 Number 0 Bowel Movements Output, 150 Emesis Output, Stool 100 350 500 900 Output, Urine 150 325 800 [phone] Physical Exam: General - alert & oriented x 3. comfortable. no acute distress. Lungs - clear bilaterally. no w/r/r. Cardiac - s1s2 Abdomen - soft. obese. no bowel sounds appreciated. ng tube in place. ileostomy moist and pink, with no output appreciated in the bag. aba-incisional tenderness. - ardon draining clear, yellow urine. Extremities - warm bilaterally. venodynes active b/l. Assessment/Plan Assessment/Plan 71-year-old female POD#4 s/p diverting loop ileostomy s/p drainage of perirectal collection secondary to colovaginal fistula postoperative day #7, s/p ng tube insertion today for ileus and repeat washout of perineum npo / ivf / ngt ardon catheter renewed - strict i/o's continue pain management iv protonix - gi ppx hep sc - dvt ppx f/u labs iv unasyn oob/ambulation. continue PT ostomy care d/w Core Measures/Miscellaneous Ardon Catheter Date In: 11/17/16 Venous Thromboembolism VTE Risk Factors: Age > 40, Surgery VTE Contraindications: No Contraindications VTE Prophylaxis Ordered Inpt Mech & Pharm VTE Diagnosis: No VTE Type: NONE VTE Confirmed by (Test): NONE Beta Gabriela Is Beta Gabriela a Home Med? No Antibiotics Is Patient on Antibiotics? Yes If Yes: infection
--- NOTE | 2016-11-25 18:10 | Operative Report ---
Operative/Inv Procedure Report Surgery Date: 11/25/16 Name of Procedure: perineal washout and I&D of perirectal abscess Pre-Operative Diagnosis: 1. colovaginal fistula 2. presacral perirectal abscess extending into the left buttock 3. history of rectal cancer Post-Operative Diagnosis: same Estimated Blood Loss: less than 50ml Surgeon/Statistician Theoretical: ÁNEGLA KELLY MD Anesthesia: general endotracheal tube Drains: double vessel loops x2 Complications: none Condition: stable to recovery room Operative Indication: A 71 year-old woman with history of rectal cancer s/p neoadjuvant chemoradiation and LAR with diverting loop ileostomy followed by ileostomy reversal approximately 10 years ago, developed a large presacral necrotic cavity that extended along the circumference of the anastomosis. Patient also developed a high colovaginal fistula. She underwent a fecal diversion procedure 4 days ago. However, she has persistent induration and cellulitis of the left buttock. Patient is taken to the OR for additional washout and debridement. Operative/Procedure Note Note: Patient was taken to OR and placed in the supine position on the operating table. She already received around the clock antibiotics and was on SQ heparin for DVT prophylaxis. Bilateral low extremities SCDs were placed on her legs. General endotracheal anasthesia was established by the anesthesia team. NGT was inserted. Patient was placed in the lithatomy position with legs in the candy canes. Perineum was prepped and draped in the standard surgical fashion. The timeout was carried out. Patient's perineum, including the anus, presacral space, vagina, and left buttock incisions were copiously irrigated with 6L of the antibiotic solution. Multiple clumps of the residual hard stool were washed out. Two double vessel loops were placed, one from the presacral cavity to the communicating incision in the left buttock, another through the incisions in the left buttock. In the end of the procedure, patient's ileostomy was digitalized. There was no evidence of obstruction at the level of the fascia. The sponge and instrument counts were correct in the end of the procedure. Patient tolerated the procedure well, was waken up and taken to the recovery room in stable condition. Findings: large amount of hard residual stool in the persacral space Discharge Disposition: back to her room
[2016-11-26 00:09] VITALS: BP 138/84
--- NOTE | 2016-11-26 06:56 | PN- General Surgery ---
See Addendum Subjective Subjective: The patient seen this morning postoperatively. She still complains of peristomal discomfort but she is okay with the current pain regiment. She denies any nausea and has no other complaints at the current time. She denies any chest pain or difficulty breathing. Objective Vital Signs and I&Os Vital Signs Date Time Temp Pulse Resp B/P Pulse O2 O2 Flow FiO2 Ox Delivery Rate 11/26 0009 97.8 77 20 138/84 93 Nasal 3.0L Cannula 11/26 0000 93 Nasal 3.0L Cannula 11/25 1613 97.7 74 21 118/72 94 Nasal 3.0L Cannula 11/25 1600 Nasal 2.0L Cannula 11/25 1445 97.9 80 20 142/70 92 Nasal 2.0L Cannula 11/25 1103 98.4 74 20 146/78 92 Nasal 2.0L Cannula 11/25 0807 97.6 74 20 156/80 92 Nasal 2.0L Cannula 11/25 0800 93 Nasal 2.0L Cannula 11/25 0739 97.8 77 20 154/80 95 Nasal 2.0L Cannula Intake & Output 11/26 0800 11/26 0000 11/25 1600 11/25 0800 11/25 0000 11/24 1600 Intake Total 800 625 400 914 107 0323 Output Total 325 40 400 325 800 650 Balance 475 585 0 475 150 700 Intake, IV 800 525 400 800 800 800 Intake, Oral 100 0 150 550 Number 0 Bowel Movements Output, 150 Emesis Output, 75 20 Gastric Drainage Output, Stool 50 20 100 350 Output, Urine 200 150 325 800 300 Physical Exam: Gen.: Alert in obvious distress Skin: Warm and dry Abdomen: Soft, obese, appropriate incisional tenderness, bowel sounds positive. Ileostomy is pink and viable with a small amount of output in the bag Extremities: Bilateral lower extremities warm without calf tenderness Assessment/Plan Assessment/Plan Assessment: 71-year-old female status post diverting ileostomy today colo- fractional fistula. Status post I&D and washout of perineal area 2. The patient is progressing as expected however she still has a postoperative ileus. Plan: Follow-up morning labs Continue nothing by mouth and NG tube decompression IV hydration and antibiotics Daily dry dressing change to buttock as well as ileostomy care Continue current pain regiment Out of bed and ambulate GI and DVT prophylaxis IST Core Measures/Miscellaneous Guadarrama Catheter Date In: 11/17/16 Venous Thromboembolism VTE Risk Factors: Age > 40, Surgery VTE Contraindications: No Contraindications VTE Prophylaxis Ordered Inpt Mech & Pharm VTE Diagnosis: No VTE Type: NONE VTE Confirmed by (Test): NONE Beta Gabriela Is Beta Gabriela a Home Med? No Antibiotics Is Patient on Antibiotics? Yes If Yes: infection
[2016-11-26 07:33] VITALS: BP 150/80
--- NOTE | 2016-11-26 10:28 | NUR ---
NSG NOTE: PATIENT REFUSING XRAY; SURGICAL PA LESLEY AWARE; THIS RN EXPLAINED THE IMPORTANCE OF XRAY AND PATIENT STATED "YOU CAN RECOMMEND I GO DOWN FOR XRAY ANOTHER DAY, I DONT WANT TO DO [id number]" PATIENT RESTING COMFORTABLY IN BED, SEE EMAR FOR MEDS GIVEN; WILL CONT TO MONITOR;
[2016-11-26 17:06] VITALS: BP 148/76
--- NOTE | 2016-11-26 23:14 | NUR ---
NURSING NOTE: PT REFUSING SITZ BATH AT THIS TIME, "ILL DO IT TOMORROW MORNING" RHONDA PA AWARE
[2016-11-27 01:00] VITALS: BP 152/71
--- NOTE | 2016-11-27 07:05 | PN- General Surgery ---
See Addendum Subjective Subjective: The patient was seen this morning postoperatively. She reports feeling weak and tired but overall more comfortable with regards to her pain. She denies any nausea or vomiting and had no other complaints at the current time. Objective Vital Signs and I&Os Vital Signs Date Time Temp Pulse Resp B/P Pulse O2 O2 Flow FiO2 Ox Delivery Rate 11/27 0100 97.7 80 20 152/71 99 Nasal 3.0L Cannula 11/27 0000 94 Nasal 3.0L Cannula 11/26 2000 94 Nasal 3.0L Cannula 11/26 1706 97.7 74 20 148/76 98 11/26 1600 Nasal 3.0L Cannula 11/26 08 Nasal 3.0L Cannula 11/26 0733 97.6 80 20 150/80 97 Nasal 3.0L Cannula Intake & Output 11/27 0800 11/27 0000 11/26 1600 11/26 0800 11/26 0000 11/25 1600 Intake Total 800 400 800 625 400 Output Total 925 1200 325 40 400 Balance -125 -800 475 585 0 Intake, IV 800 400 800 525 400 Intake, Oral 0 0 100 0 Number 0 Bowel Movements Output, 150 Emesis Output, 150 100 75 20 Gastric Drainage Output, Stool 75 150 50 20 100 Output, Urine 700 950 200 150 Physical Exam: Gen.: Alert and in obvious distress Skin: Warm and dry Abdomen: Soft, obese, appropriate incisional tenderness, bowel sounds positive. Ileostomy is pink and viable with a scant amount output in the bag. Buttock dressing is intact with a mild amount of drainage on the pad. Extremities: Bilateral lower extremities are warm without calf tenderness and there is some pitting edema bilaterally. Assessment/Plan Assessment/Plan Assessment: 71-year-old female status post diverting loop ileostomy and multiple washouts of perirectal collection due to: No vaginal fistula. Postoperatively the patient has been slow to progress and is still experiencing an ileus. Plan: Continue nothing by mouth and NG tube decompression IV hydration Margot Guadarrama catheter Strict I's and O's Follow-up morning laboratory studies and multiview x-ray Out of bed ambulate Sitz baths Continue IV antibiotics GI and DVT prophylaxis Core Measures/Miscellaneous Guadarrama Catheter Date In: 11/17/16 Venous Thromboembolism VTE Risk Factors: Age > 40, Surgery VTE Contraindications: No Contraindications VTE Prophylaxis Ordered Inpt Mech & Pharm VTE Diagnosis: No VTE Type: NONE VTE Confirmed by (Test): NONE Beta Gabriela Is Beta Gabriela a Home Med? No Antibiotics Is Patient on Antibiotics? Yes If Yes: infection
[2016-11-27 07:52] VITALS: BP 130/82
[2016-11-27 08:03] LABS: ABSOLUTE BASOPHIL COUNT 0 /CUMM (0.0-0.2); ABSOLUTE EOSINOPHIL COUNT 0.1 /CUMM (0.0-0.7); ABSOLUTE GRANULOCYTE CT 3.1 /CUMM (1.4-6.5); ABSOLUTE LYMPH COUNT 1.2 /CUMM (1.2-3.4); ABSOLUTE MONOCYTE COUNT 0.5 /CUMM (0.10-0.60); BASOPHIL % 0.3 % (0.0-2.0); EOSINOPHIL % 2.1 % (0-5); GRANULOCYTE % 63.5 % (42.2-75.2); HEMATOCRIT 28.8 % (37-47); MEAN CORPUSCULAR HGB 32.2 PG (27.0-31.0); MEAN CORPUSCULAR HGB CONC 32.8 G/DL (33.0-37.0); MEAN CORPUSCULAR VOLUME 98.3 FL (81.0-99.0); MEAN PLATELET VOLUME 13.1 FL (7.4-10.4); PLATELET COUNT 176 /CUMM (130-400); RBC DISTRIBUTION WIDTH 23.9 % (11.5-14.5); RED BLOOD CELL CT 2.92 /CUMM (4.20-5.40); WHITE BLOOD CELL COUNT 4.9 /CUMM (4.8-10.8)
[2016-11-27 15:48] VITALS: BP 164/66
--- NOTE | 2016-11-27 18:21 | RADIOLOGY REPORT ---
EXAMINATION: XR ABDOMEN WITH PA CHEST CLINICAL INDICATION: Check position of nasogastric tube and PICC line. COMPARISON: Abdomen 11/25/2016, chest 11/16/2016 TECHNIQUE: Frontal chest, 3 abdominal views FINDINGS: PICC within the right upper extremity. PICC tip at the superior cavoatrial junction. Possible small left pleural effusion. No pneumothorax bilaterally. No focal consolidation. Mild cardiomegaly. Enteric tube tip and sidehole are below the diaphragm. No significant interval change is seen to the dilated loops of small bowel seen within the left and central abdomen. No significant transit of the contrast material within the large bowel. There is a bubble of gas within the rectum. A curvilinear structure is seen projecting over the region of the rectum and may represent something external to the patient or a prolapsed rectal temperature probe. No evidence of free air under the diaphragm. IMPRESSION: 1. PICC tip at the superior cavoatrial junction. 2. Enteric tube tip and sidehole below the diaphragm. 3. No significant interval change to the appearance of the bowel with contrast in the large bowel and dilated loops of small bowel. No evidence of pneumoperitoneum. 4. Possible trace left pleural effusion.
[2016-11-28 00:21] VITALS: BP 152/70
--- NOTE | 2016-11-28 07:44 | PN- General Surgery ---
See Addendum Subjective Subjective: Reports pain improves with dilaudid, which shes getting every 4 hours. PICC line placed yesterday with the intention of starting tpn today. She is finally getting out of bed to commode since the ardon was removed yesterday, but not ambulating otherwise. "I need to start with small steps". She reports weakness. No dizziness. No shortness of breath. No chest pains. Objective Vital Signs and I&Os Vital Signs Date Time Temp Pulse Resp B/P Pulse O2 O2 Flow FiO2 Ox Delivery Rate 11/28 0021 97.8 88 20 152/70 92 11/28 0000 Nasal 2.0L Cannula 11/27 1600 95 Nasal 3.0L Cannula 11/27 1548 97.8 80 20 164/66 96 11/27 1528 Nasal 2.0L Cannula 11/27 0800 Nasal 3.0L Cannula 11/27 0752 97.5 76 20 130/82 97 Nasal 2.0L Cannula Intake & Output 11/28 0800 11/28 0000 11/27 1600 11/27 0800 11/27 0000 11/26 1600 Intake Total 400 1075 800 400 Output Total 850 4775 541 1804 Balance -450 -525 -125 -800 Intake, IV 400 1000 800 400 Intake, Oral 0 0 0 0 Intake, Other 75 Output, 50 150 100 Gastric Drainage Output, Stool 200 200 75 150 Output, Urine 600 1400 700 950 Physical Exam: General - alert & oriented x 3. comfortable. no acute distress. Lungs - clear bilaterally. Cardiac - s1s2 Abdomen - obese. hypoactive bowel sounds appreciated. ileostomy moist & pink with succus in bag and some gas. Extremities - warm bilaterally. nontender. venodynes active b/l. 1+ edema b/l. Assessment/Plan Assessment/Plan 71-year-old female s/p diverting loop ileostomy, multiple washouts of perineum due to colovaginal fistula, post-op ileus requiring ng tube s/p picc line for tpn today npo / ngt / ivf iv dilaudid as ordered. taper as able toradol / tylenol / neurontin ardon removed yesterday hep sc - dvt ppx protonix - gi ppx f/u labs start tpn today sitz baths continue iv unasyn will d/w Core Measures/Miscellaneous Ardon Catheter Date In: 11/17/16 Venous Thromboembolism VTE Risk Factors: Age > 40, Surgery VTE Contraindications: No Contraindications VTE Prophylaxis Ordered Inpt Mech & Pharm VTE Diagnosis: No VTE Type: NONE VTE Confirmed by (Test): NONE Beta Gabriela Is Beta Gabriela a Home Med? No Antibiotics Is Patient on Antibiotics? Yes If Yes: infection
--- NOTE | 2016-11-28 07:58 | NUR ---
PT ALERT AND ORIENTED, PICC LINE WITH IVF INFUSING, VOIDING POST MEHTA REMOVAL. PAIN MEDS GIVEN Q3 HOURS, BLOODY DRAININAGE FROM RECTAL DRAIN, ILLEOSTOMY WITH GREEN DRAINAGE, POSITIVE FLATUS, POSITIVE BOWEL SOUNDS. GENERALIZED EDEMA
[2016-11-28 08:00] LABS: ABSOLUTE BASOPHIL COUNT 0 /CUMM (0.0-0.2); ABSOLUTE EOSINOPHIL COUNT 0.1 /CUMM (0.0-0.7); ABSOLUTE GRANULOCYTE CT 3.2 /CUMM (1.4-6.5); ABSOLUTE LYMPH COUNT 0.8 /CUMM (1.2-3.4); ABSOLUTE MONOCYTE COUNT 0.2 /CUMM (0.10-0.60); BASOPHIL % 0.6 % (0.0-2.0); EOSINOPHIL % 2.3 % (0-5); GRANULOCYTE % 73.5 % (42.2-75.2); MEAN CORPUSCULAR HGB 32.1 PG (27.0-31.0); MEAN CORPUSCULAR HGB CONC 32.8 G/DL (33.0-37.0); MEAN PLATELET VOLUME 12.5 FL (7.4-10.4); RBC DISTRIBUTION WIDTH 23.6 % (11.5-14.5); RED BLOOD CELL CT 2.76 /CUMM (4.20-5.40); WHITE BLOOD CELL COUNT 4.4 /CUMM (4.8-10.8)
[2016-11-28 08:18] VITALS: BP 140/77
[2016-11-28 08:53] LABS: PLATELET COUNT 184 /CUMM (130-400)
--- NOTE | 2016-11-28 09:45 | NUR ---
NURSING NOTE: PT CURRENTLY REFUSING SITZ BATH, Meme DE JESUS PAGED AND MADE AWARE
--- NOTE | 2016-11-28 11:00 | NUR ---
NURSING NOTE: SITZ BATH DONE AFTER PT AMBULATED IN HALLWAY WITH P.T. PT BACK TO BED, NEEDS IN REACH.
[2016-11-28 16:02] VITALS: BP 142/68
--- NOTE | 2016-11-28 23:39 | NUR ---
PT REFUSED SITZ BATHS AT 1600 AND 2200. PT STATING "IM TOO TIRED ILL TRY TOMORROW". SURGICAL PA CALLED AND MADE AWARE. WILL CONTINUE TO MONITOR.
[2016-11-29 00:38] VITALS: BP 160/70
[2016-11-29 06:47] VITALS: BP 158/66
[2016-11-29 08:43] LABS: ABSOLUTE BASOPHIL COUNT 0 /CUMM (0.0-0.2); ABSOLUTE EOSINOPHIL COUNT 0.2 /CUMM (0.0-0.7); ABSOLUTE LYMPH COUNT 1.2 /CUMM (1.2-3.4); ABSOLUTE MONOCYTE COUNT 0.1 /CUMM (0.10-0.60); BASOPHIL % 0.3 % (0.0-2.0); EOSINOPHIL % 4.1 % (0-5); GRANULOCYTE % 67.3 % (42.2-75.2); HEMATOCRIT 26.1 % (37-47); MEAN CORPUSCULAR HGB 32.4 PG (27.0-31.0); MEAN CORPUSCULAR HGB CONC 32.7 G/DL (33.0-37.0); MEAN CORPUSCULAR VOLUME 99.1 FL (81.0-99.0); MEAN PLATELET VOLUME 11.4 FL (7.4-10.4); PLATELET COUNT 165 /CUMM (130-400); RBC DISTRIBUTION WIDTH 23.3 % (11.5-14.5); RED BLOOD CELL CT 2.63 /CUMM (4.20-5.40); WHITE BLOOD CELL COUNT 4.4 /CUMM (4.8-10.8)
--- NOTE | 2016-11-29 10:25 | NUR ---
Physical Therapy Attempt made to see pt for PT session this AM; pt presents in supine in NAD with family member present. Pt reports she just woke up and received pain medication. Encouragement provided however pt requesting to rest at this time and visit with family memeber. Will f/u for PT session as appropriate.
--- NOTE | 2016-11-29 11:34 | PN- General Surgery ---
Subjective Subjective: Awake, alert depressed about length of time and not feeling well No specific complaints No nausea, pain well controlled with meds Objective Vital Signs and I&Os Vital Signs Date Time Temp Pulse Resp B/P Pulse O2 O2 Flow FiO2 Ox Delivery Rate 11/29 08 95 Nasal 2.0L Cannula 11/29 0647 98.2 73 18 158/66 95 Nasal 2.0L Cannula 11/29 0038 97.5 75 19 160/70 98 Room Air 11/29 0000 Nasal 2.0L Cannula 11/28 1602 97.4 81 20 142/68 96 11/28 1600 Nasal 2.0L Cannula Intake & Output 11/29 1600 11/29 0800 11/29 0000 11/28 1600 11/28 0800 11/28 0000 Intake Total 876.8 618.4 800 800 400 Output Total 843 328 9904 625 850 Balance 401.8 -181.6 -1350 175 -450 Intake, IV 400 400 800 800 400 Intake, Lipid 83.2 41.6 Intake, Oral 60 0 0 Intake, Other 10 Intake, 333.6 166.8 TPN/PPN Output, 50 25 50 Gastric Drainage Output, Stool 200 200 100 100 200 Output, Urine 297 496 2477 500 600 Patient 249 lb 220 lb Weight Physical Exam: afebrile, vss ngt nothing overnight, 50cc bilious yesterday afternoon General: alert and oriented times three, seems depressed Chest: clear anteriorly bilaterally, RRR Abdomen: soft, ND, NT, no rebound/guarding, hypoactive bs stoma viable with succus entericus, no solid stool perineum: continued erythema/cellulitis, some residual induration Assessment/Plan Assessment/Plan A/P: A 71 year-old woman s/p diverting loop ileostomy for a colovaginal fistula POD 8 - NPO/IVF - ?dc ngt - tpn DAY 2 - total 1700 with tpn/lipids, will keep ivf at 50cc/hr - DVT prophylaxis - IS Core Measures/Miscellaneous Guadarrama Catheter Date In: 11/17/16 Venous Thromboembolism VTE Risk Factors: Age > 40, Surgery VTE Contraindications: No Contraindications VTE Prophylaxis Ordered Inpt Mech & Pharm VTE Diagnosis: No VTE Type: NONE VTE Confirmed by (Test): NONE Beta Gabriela Is Beta Gabriela a Home Med? No Antibiotics Is Patient on Antibiotics? Yes If Yes: infection
--- NOTE | 2016-11-29 12:04 | NUR ---
NURSING NOTE: REDNESS NOTED TO GROIN; ? IRRITATION FROM MESH PANTS AND ABD PAD. BARRIER CREAM APPLIED, Meme ALVARADO MADE AWARE. CONT TO MONITOR. PT REFUSING SIZEWISE MATTRESS AT THIS TIME. CONT TO MONITOR.
--- NOTE | 2016-11-29 12:09 | NUR ---
NURSING NOTE: PT DOESNT WANT TO DO SITZ BATH AT THIS TIME," MAYBE LATER" Meme ALVARADO AWARE
[2016-11-29 16:59] VITALS: BP 146/68
[2016-11-30 00:32] VITALS: BP 146/72
--- NOTE | 2016-11-30 07:15 | PN- General Surgery ---
Subjective Subjective: The patient was seen this morning. She reports her pain is under adequate control although her backside is still somewhat sore. She denies any nausea however reports frequently burping. GEN no other complaints at the current time. Objective Vital Signs and I&Os Vital Signs Date Time Temp Pulse Resp B/P Pulse O2 O2 Flow FiO2 Ox Delivery Rate 11/30 0032 97.5 75 20 146/72 97 11/30 0000 Nasal 2.0L Cannula 11/29 1659 97.5 80 18 146/68 96 11/29 1600 96 Nasal 2.0L Cannula 11/29 08 95 Nasal 2.0L Cannula Intake & Output 11/30 0800 11/30 0000 11/29 1600 11/29 0800 11/29 0000 11/28 1600 Intake Total 1040.0 1276.8 876.8 618.4 800 Output Total 1450 1775 634 245 7374 Balance -410.0 -498.2 401.8 -181.6 -1350 Intake, IV 550 400 400 400 800 Intake, Lipid 90.0 83.2 83.2 41.6 Intake, Oral 460 60 0 Intake, Other 10 Intake, 400 333.6 333.6 166.8 TPN/PPN Output, 0 50 Gastric Drainage Output, Stool 125 200 200 100 Output, Urine 1450 1650 595 817 5494 Patient 249 lb 220 lb Weight Physical Exam: Gen.: Alert and in no obvious distress Skin: Warm and dry Abdomen: Soft, obese, mild peristomal tenderness, bowel sounds positive. Ileostomy is pink and viable with positive gas and liquid stool in the bag. Extremities: Bilateral lower extremities are warm without calf tenderness and there is some trace edema . Assessment/Plan Assessment/Plan Assessment: 71-year-old female status post creation of diverting loop ileostomy as well as multiple washouts of perirectal collection due to a colovaginal fistula. Postoperatively the patient has had a prolonged ileus which is slowly improving. Plan: Continue antibiotics Follow-up morning labs Out of bed and ambulate Nothing by mouth and NG tube decompression Advance TPN to goal GI and DVT prophylaxis Daily wound and ostomy care Sitsz baths Core Measures/Miscellaneous Guadarrama Catheter Date In: 11/17/16 Venous Thromboembolism VTE Risk Factors: Age > 40, Surgery VTE Contraindications: No Contraindications VTE Prophylaxis Ordered Inpt Mech & Pharm VTE Diagnosis: No VTE Type: NONE VTE Confirmed by (Test): NONE Beta Gabriela Is Beta Gabriela a Home Med? No Antibiotics Is Patient on Antibiotics? Yes If Yes: infection
[2016-11-30 07:36] VITALS: BP 119/80
[2016-11-30 09:34] LABS: ABSOLUTE BASOPHIL COUNT 0 /CUMM (0.0-0.2); ABSOLUTE EOSINOPHIL COUNT 0.3 /CUMM (0.0-0.7); ABSOLUTE GRANULOCYTE CT 2.4 /CUMM (1.4-6.5); ABSOLUTE MONOCYTE COUNT 0 /CUMM (0.10-0.60); BASOPHIL % 0.4 % (0.0-2.0); EOSINOPHIL % 7.4 % (0-5); GRANULOCYTE % 65.4 % (42.2-75.2); HEMATOCRIT 24.9 % (37-47); MEAN CORPUSCULAR HGB 34.7 PG (27.0-31.0); MEAN CORPUSCULAR HGB CONC 35.4 G/DL (33.0-37.0); MEAN CORPUSCULAR VOLUME 98.1 FL (81.0-99.0); MEAN PLATELET VOLUME 11.9 FL (7.4-10.4); PLATELET COUNT 174 /CUMM (130-400); RBC DISTRIBUTION WIDTH 23.5 % (11.5-14.5); RED BLOOD CELL CT 2.54 /CUMM (4.20-5.40)
--- NOTE | 2016-11-30 09:38 | NUR ---
NURSING NOTE: PT DOESNT WANT SITZ BATH CURRENTLY. LESLEY ALVARADO AWARE.
[2016-11-30 10:13] LABS: WHITE BLOOD CELL COUNT 4.2 /CUMM (4.8-10.8)
[2016-11-30 16:33] VITALS: BP 142/78
--- NOTE | 2016-11-30 17:46 | NUR ---
NURSING NOTE; LATE ENTRY; PT REFUSING SITZ BATH AT 1600, SURGICAL PA LESLEY NOTIFIED AND AWARE. WILL CONTINUE TO MONITOR.
--- NOTE | 2016-11-30 23:22 | NUR ---
NURSING NOTE; PT DOES NOT WANT TO DO SITZ BATH AT THIS TIME; SURGICAL PA AWARE.
[2016-12-01 00:05] VITALS: BP 152/68
--- NOTE | 2016-12-01 07:33 | PN- General Surgery ---
Subjective Subjective: No new acute overnight events. Patient reports feeling fatigued after increasing level of activity one day ago. Denies chest pain, shortness of breath and difficulty breathing. Denies nausea and vomitting. Acknowledges pain to aba-rectal area Objective Vital Signs and I&Os Vital Signs Date Time Temp Pulse Resp B/P Pulse O2 O2 Flow FiO2 Ox Delivery Rate 12/01 0005 97.7 80 20 152/68 97 11/30 1633 94.4 80 20 142/78 95 11/30 1600 Nasal 2.0L Cannula 11/30 08 95 Nasal 2.0L Cannula 11/30 0736 98.2 80 20 119/80 96 Intake & Output 12/01 0800 12/01 0000 11/30 1600 11/30 0811/30 0000 11/29 1600 Intake Total 239 829 2930.4 1040.0 1276.8 Output Total 1000 3140 035 9359 1775 Balance -800 -1300 526.4 -410.0 -498.2 Intake, IV 200 100 500 550 400 Intake, Lipid 100.0 90.0 83.2 Intake, Oral 0 0 460 Intake, Other 20 Intake, 466.4 400 333.6 TPN/PPN Output, 0 10 0 Gastric Drainage Output, Stool 100 100 150 125 Output, Urine 900 8527 716 4357 1650 Physical Exam: General: Alert and oriented x3, no acute distress Cardiac: RRR, s1s2 Pulm: CTA b Abdomen: Non-tender, non-distended, stoma pink, well perfused, positive gas and liquid stool in ostomy bag Extremities: Moves all extremites, distal sensation intact, DP Pulses palpable, skin warm and well perfused, bilateral calves soft and non-tender Aba-anal area with mild erythema and small amount of bright red blood noted after sitting on commode Assessment/Plan Assessment/Plan Assessment/Plan Assessment: 71-year-old female status post creation of diverting loop ileostomy as well as multiple washouts of perirectal collection due to a colovaginal fistula. Postoperatively the patient has had a prolonged ileus which is slowly improving. Plan: Continue antibiotics Follow-up morning labs Out of bed and ambulate Nothing by mouth and NG tube decompression Continue TPN GI and DVT prophylaxis Daily wound and ostomy care Sitsz baths Core Measures/Miscellaneous Guadarrama Catheter Date In: 11/17/16 Venous Thromboembolism VTE Risk Factors: Age > 40, Surgery VTE Contraindications: No Contraindications VTE Prophylaxis Ordered Inpt Mech & Pharm VTE Diagnosis: No VTE Type: NONE VTE Confirmed by (Test): NONE Beta Gabriela Is Beta Gabriela a Home Med? No Antibiotics Is Patient on Antibiotics? Yes If Yes: infection
[2016-12-01 07:42] LABS: ABSOLUTE BASOPHIL COUNT 0.1 /CUMM (0.0-0.2); ABSOLUTE EOSINOPHIL COUNT 0.4 /CUMM (0.0-0.7); ABSOLUTE GRANULOCYTE CT 3.1 /CUMM (1.4-6.5); ABSOLUTE LYMPH COUNT 1.1 /CUMM (1.2-3.4); ABSOLUTE MONOCYTE COUNT 0.3 /CUMM (0.10-0.60); BASOPHIL % 1.1 % (0.0-2.0); EOSINOPHIL % 7.5 % (0-5); GRANULOCYTE % 63.3 % (42.2-75.2); HEMATOCRIT 25.5 % (37-47); MEAN CORPUSCULAR HGB 32.6 PG (27.0-31.0); MEAN CORPUSCULAR HGB CONC 33.3 G/DL (33.0-37.0); MEAN CORPUSCULAR VOLUME 97.7 FL (81.0-99.0); MEAN PLATELET VOLUME 10.8 FL (7.4-10.4); PLATELET COUNT 183 /CUMM (130-400); RBC DISTRIBUTION WIDTH 23.3 % (11.5-14.5); RED BLOOD CELL CT 2.61 /CUMM (4.20-5.40); WHITE BLOOD CELL COUNT 4.9 /CUMM (4.8-10.8)
[2016-12-01 08:18] VITALS: BP 155/70
[2016-12-01 17:25] VITALS: BP 150/70
[2016-12-01 23:40] VITALS: BP 147/64
--- NOTE | 2016-12-02 06:59 | PN- General Surgery ---
See Addendum Subjective Subjective: The patient was seen this morning. She reports her pain is under adequate control and in other complaints the current time. She denies any nausea but does report burping frequently. She continues to have small amounts of output through the ileostomy and is attempting to mobilize more than she has in the past. Objective Vital Signs and I&Os Vital Signs Date Time Temp Pulse Resp B/P Pulse O2 O2 Flow FiO2 Ox Delivery Rate 12/02 0000 Nasal 2.0L Cannula 12/01 2340 97.4 74 20 147/64 98 Nasal 2.0L Cannula 12/01 1725 97.5 73 20 150/70 97 Nasal 2.0L Cannula 12/01 0818 97.7 77 20 155/70 97 Nasal 2.0L Cannula 12/01 0800 95 Nasal 2.0L Cannula Intake & Output 12/02 0800 12/02 0000 12/01 1600 12/01 0800 12/01 0000 11/30 1600 Intake Total 358.4 956.8 200 100 Output Total 900 1575 2875 710 1994 1400 Balance -900 -1216.6 -1500 -23.2 -800 -1300 Intake, IV 240 200 100 Intake, Lipid 58.4 116.8 Intake, Oral 0 0 0 0 Intake, 300 600 TPN/PPN Output, 350 50 0 Gastric Drainage Output, Stool 125 30 100 100 Output, Urine 900 1100 1500 [phone] Physical Exam: Gen.: Alert and in no obvious distress Skin: Warm and dry Abdomen: Soft, obese, nontender, bowel sounds positive. Ileostomy is pink and viable with positive output in the bag. Extremities: Bilateral lower extremities are warm without calf tenderness and there is some pitting edema. 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 Postoperatively the patient has had a prolonged ileus and does show some signs of bowel function Plan: Continue nothing by mouth and NG tube decompression Follow-up morning laboratory studies Reorder TPN and lipids Out of bed and ambulate Continue antibiotics GI and DVT prophylaxis Daily wound and ostomy care Wean O2 IST Core Measures/Miscellaneous Guadarrama Catheter Date In: 11/17/16 Venous Thromboembolism VTE Risk Factors: Age > 40, Surgery VTE Contraindications: No Contraindications VTE Prophylaxis Ordered Inpt Mech & Pharm VTE Diagnosis: No VTE Type: NONE VTE Confirmed by (Test): NONE Beta Gabriela Is Beta Gabriela a Home Med? No Antibiotics Is Patient on Antibiotics? Yes If Yes: infection
[2016-12-02 08:01] LABS: ABSOLUTE BASOPHIL COUNT 0 /CUMM (0.0-0.2); ABSOLUTE EOSINOPHIL COUNT 0.3 /CUMM (0.0-0.7); ABSOLUTE GRANULOCYTE CT 2.9 /CUMM (1.4-6.5); ABSOLUTE MONOCYTE COUNT 0.2 /CUMM (0.10-0.60); BASOPHIL % 0.6 % (0.0-2.0); EOSINOPHIL % 6.7 % (0-5); GRANULOCYTE % 64.2 % (42.2-75.2); HEMATOCRIT 24.8 % (37-47); MEAN CORPUSCULAR HGB 32.4 PG (27.0-31.0); MEAN CORPUSCULAR HGB CONC 33.1 G/DL (33.0-37.0); MEAN CORPUSCULAR VOLUME 97.9 FL (81.0-99.0); MEAN PLATELET VOLUME 10.8 FL (7.4-10.4); PLATELET COUNT 165 /CUMM (130-400); RED BLOOD CELL CT 2.53 /CUMM (4.20-5.40); WHITE BLOOD CELL COUNT 4.4 /CUMM (4.8-10.8)
[2016-12-02 09:12] VITALS: BP 130/72
[2016-12-02 16:07] VITALS: BP 168/70
[2016-12-03 00:37] VITALS: BP 160/60
--- NOTE | 2016-12-03 07:15 | PN- General Surgery ---
Subjective Subjective: The patient was seen this morning. She reports her pain is under adequate control and is other complaints at the current time. She denies any nausea and had a comfortable night's rest. She still complains of significant pain in her buttocks area and offers that is reasonably she's not getting out of bed. Objective Vital Signs and I&Os Vital Signs Date Time Temp Pulse Resp B/P Pulse O2 O2 Flow FiO2 Ox Delivery Rate 12/03 0037 96.9 83 20 160/60 94 Nasal 1.0L Cannula 12/03 0000 Nasal 0.5L Cannula 12/02 1607 97.4 74 18 168/70 95 12/02 1137 Nasal 0.5L Cannula 12/02 0912 97.7 78 18 130/72 97 Nasal Cannula 12/02 0800 94 Nasal 0.5L Cannula Intake & Output 12/03 0800 12/03 0000 12/02 1600 12/02 0800 12/02 0000 12/01 1600 Intake Total 916.8 627.2 916.8 358.4 Output Total 750 2700 225 1550 1575 1500 Balance 166.8 -2700 402.2 -633.2 -1216.6 -1500 Intake, IV 200 200 Intake, Lipid 116.8 102.2 116.8 58.4 Intake, Oral 0 0 Intake, 600 525 600 300 TPN/PPN Output, 300 150 100 350 Gastric Drainage Output, Stool 150 75 150 125 Output, Urine 300 2700 1300 1100 1500 Physical Exam: Gen.: Alert and obvious distress Skin: Warm and dry Abdomen: Soft, obese, mild aba-ostomy tenderness, bowel sounds positive. Ileostomy is pink and viable with positive output in the bag. Extremities: Bilateral lower extremities are warm without calf tenderness. Assessment/Plan Assessment/Plan Assessment: 71-year-old female status post creation of diverting loop ileostomy and's multiple washout of perirectal collection secondary to colovaginal fistula. The patient had a prolonged hospital course with a postoperative ileus which is slowly resolving. Plan: Clamping trial with the NG tube today if patient does well we will try to remove the tube and the evening. If the patient fails we will probably get an upper GI series with small bowel follow-through Continue nothing by mouth and hydration with TPN Follow-up morning laboratory studies Out of bed GI and DVT prophylaxis Daily wound and ostomy care Total respiratory care for incentive spirometry and wean oxygen needs Continue antibiotics Core Measures/Miscellaneous Guadarrama Catheter Date In: 11/17/16 Venous Thromboembolism VTE Risk Factors: Age > 40, Surgery VTE Contraindications: No Contraindications VTE Prophylaxis Ordered Inpt [facility] VTE Diagnosis: No VTE Type: NONE VTE Confirmed by (Test): NONE Beta Gabriela Is Beta Gabriela a Home Med? No Antibiotics Is Patient on Antibiotics? Yes If Yes: infection
[2016-12-03 08:31] VITALS: BP 148/60
--- NOTE | 2016-12-03 09:48 | NUR ---
NURSING NOTE: PT WANTS SITZ BATH LATER; LESLEY LEIVA
--- NOTE | 2016-12-03 11:05 | NUR ---
NURSING NOTE: PT AMBULATED IN HALLWAY WITH P.T. ROOM AIR WITH AMBULATION O2 SATS DROPPED TO 86%. O2 2L NC REPLACED. LESLEY ALVARADO MADE AWARE, ENCOURAGED USE OF INSENTIVE SPIR. CONT TO MONITOR. ROOM AIR AT REST 94%. 2L NC 96%
--- NOTE | 2016-12-03 12:20 | NUR ---
NURSING NOTE: NGT CLAMPT FROM 07AM-11AM; CONNECTED TO LWS FROM 11AM-12PM;OUTPUT OF 0 ML. LESLEY ALVARADO CALLED AND MADE AWARE
[2016-12-03 15:38] VITALS: BP 164/70
[2016-12-03 18:12] VITALS: BP 154/78
--- NOTE | 2016-12-04 00:18 | NUR ---
NURSING NOTE; LATE ENTRY; PT REFUSED SITZ BATH AT 1600 AND 2200. SURGICAL PA #[id number] AWARE. WILL CONTINUE TO MONITOR.
--- NOTE | 2016-12-04 00:19 | NUR ---
NURSING NOTE; LATE ENTRY; PT ILEOSTOMY ONLY PUT OUT 10ML OF GREEN WATERY STOOL. SURGICAL PA #[id number] AWARE. THIS RN GAVE REPORT TO NEXT SHIFT RN TO KEEP AN EYE ON OUTPUT FOR NEXT SHIFT. WILL CONTINUE TO MONITOR.
[2016-12-04 00:43] VITALS: BP 160/70
[2016-12-04 08:03] LABS: ABSOLUTE BASOPHIL COUNT 0 /CUMM (0.0-0.2); ABSOLUTE EOSINOPHIL COUNT 0.4 /CUMM (0.0-0.7); ABSOLUTE GRANULOCYTE CT 1.7 /CUMM (1.4-6.5); ABSOLUTE LYMPH COUNT 1.2 /CUMM (1.2-3.4); ABSOLUTE MONOCYTE COUNT 0.2 /CUMM (0.10-0.60); BASOPHIL % 0.9 % (0.0-2.0); EOSINOPHIL % 10.4 % (0-5); HEMATOCRIT 23.1 % (37-47); MEAN CORPUSCULAR HGB 32.3 PG (27.0-31.0); MEAN CORPUSCULAR HGB CONC 33.3 G/DL (33.0-37.0); MEAN CORPUSCULAR VOLUME 97.1 FL (81.0-99.0); PLATELET COUNT 175 /CUMM (130-400); RED BLOOD CELL CT 2.38 /CUMM (4.20-5.40); WHITE BLOOD CELL COUNT 3.6 /CUMM (4.8-10.8)
--- NOTE | 2016-12-04 08:50 | PN- General Surgery ---
See Addendum Subjective Subjective: NAEO. Patient without new c/o. Pain controlled. Has been tolerated clear liquid diet and asking if she can be advanced. Denies n/v. Ostomy continued to put out overnight. Patient as been OOB and ambulating in hallways with PT. Denies CP/SOB. Objective Vital Signs and I&Os Vital Signs Date Time Temp Pulse Resp B/P Pulse O2 O2 Flow FiO2 Ox Delivery Rate 12/04 0043 97.8 79 20 160/70 95 Nasal 1.0L Cannula 12/03 1812 154/78 12/03 1600 Nasal 2.0L Cannula 12/03 1538 97.9 76 18 164/70 97 Nasal 2.0L Cannula 12/03 1107 20 95 Nasal 2.0L Cannula 12/03 1107 22 86 Room Air 12/03 1107 22 94 Room Air 12/03 1107 20 96 Nasal 2.0L Cannula Intake & Output 12/04 1600 12/04 0800 12/04 0000 12/03 1600 12/03 0800 12/03 0000 Intake Total 800 1106.8 916.8 Output Total 394 365 3055 800 2700 Balance -850 290 -218.2 116.8 -2700 Intake, IV 200 150 200 Intake, Lipid 116.8 116.8 Intake, Oral 600 240 0 Intake, 600 600 TPN/PPN Output, 0 350 Gastric Drainage Output, Stool 10 125 150 Output, Urine 012 045 6107 300 2700 Physical Exam: General: NAD, comfortable, A&Ox3 Chest: NRD, breathing comfortably on 2L NC. Heart S1S2 normal. Abdomen: soft, nontender, nondistended. +Bowel sounds x4 quadrants. Stoma pink and viable. Ostomy with dark green and brown output. Ext: No calve swelling/TTP, neurovascularly intact bilateral lower extremities Current Medications: Current Medications Sig/Dontae Start time Last Medication Dose Route Stop Time Status Admin Acetaminophen 1,000 MG Q6H 11/23 1500 DC 12/03 N/A 1 UNIT IV 0922 Ampicillin Sodium/ 3,000 MG Q6H 11/21 1500 AC 12/04 Sulbactam Sodium IV 0406 Sodium Chloride 100 ML Fat Emulsion 350 ML 12/03 1900 AC 12/03 Intravenous IV 12/04 1859 1906 Fat Emulsion 350 [place] [address]/02 1900 DC 12/02 Intravenous IV 12/03 Gabapentin 100 MG Q8 11/210 AC 12/04 PO 0541 Heparin Sodium 5,000 UNIT Q8 11/21 2200 AC 12/04 (Porcine) SC 0531 Hydromorphone HCl 1 MG Q3P PRN 11/21 1500 AC 12/04 IV 0736 Hydromorphone HCl 0.4 MG Q3 PRN 11/21 1500 AC IV Insulin Human Regular 0 Q6 11/28 1800 AC 12/04 SC 0542 Ketorolac 30 MG .STK-MED ONE 12/03 1621 DC Tromethamine IM 12/03 162 Ketorolac 15 MG Q8P PRN 11/23 2145 AC 12/04 Tromethamine IV 0530 Lorazepam 1 MG Q6P PRN 11/21 1500 AC PO Nystatin 1 EDE TID PRN 11/29 1200 AC 12/03 TOP 0757 Ondansetron HCl 4 MG Q6P PRN 11/21 1500 AC 11/26 IV 0944 Pantoprazole Sodium 40 MG DAILY 11/22 1000 AC 12/03 IV 0754 Total Parenteral 1 UNIT 1900 12/03 1900 AC 12/03 Nutrition IV 12/04 Total Parenteral 1 UNIT 1900 12/02 1900 DC 12/02 Nutrition IV 12/03 Zolpidem Tartrate 5 MG AT BEDTIME PRN 11/21 1500 AC 12/03 PO 2257 Results Last 48 Hours of Labs: Laboratory Tests 12/04 12/03 0739 0905 Chemistry Sodium (137 - 145 mmol/L) 139 139 Potassium (3.5 - 5.1 mmol/L) 4.1 3.9 Chloride (98 - 107 mmol/L) 102 102 Carbon Dioxide (22 - 30 mmol/L) 28 28 Anion Gap (5 - 16) 9 9 BUN (7 - 17 mg/dL) 15 13 Creatinine (0.5 - 1.0 mg/dL) 0.5 0.5 Estimated GFR (>60 ml/min) > 60 > 60 BUN/Creatinine Ratio (7 - 25 %) 30.0 H 26.0 H Glucose (65 - 99 mg/dL) 106 H Phosphorus (2.5 - 4.5 mg/dL) 3.2 2.8 Magnesium (1.6 - 2.3 mg/dL) 1.9 1.9 Albumin (3.5 - 5.0 g/dL) 2.5 L Triglycerides (<150 mg/dL) 96 Hematology CBC w Diff Pending WBC Pending RBC Pending Hgb Pending Hct Pending MCV Pending MCH Pending RDW Pending Plt Count Pending MPV Pending Gran % Pending Lymphocytes % Pending Monocytes % Pending Eosinophils % Pending Basophils % Pending Absolute Granulocytes Pending Absolute Lymphocytes Pending Absolute Monocytes Pending Absolute Eosinophils Pending Absolute Basophils Pending PUBS MCHC Pending Assessment/Plan Assessment/Plan 6yo F s/p diverting loop ileostomy, multiple washouts of perirectal collection secondary to colovaginal fistula. Post op ileus resolving. - advance to full liquid diet - TPN, may halve rate later today and wean if patient tolerates PO intake - pain control - Sitz baths - sc heparin and ALPS for DVT PPX - I/O's - continue unasyn - OOB and ambulate with PT - will d/w attending Core Measures/Miscellaneous Guadarrama Catheter Date In: 11/17/16 Venous Thromboembolism VTE Risk Factors: Age > 40, Surgery VTE Contraindications: No Contraindications VTE Prophylaxis Ordered Inpt Mech & Pharm VTE Diagnosis: No VTE Type: NONE VTE Confirmed by (Test): NONE Beta Gabriela Is Beta Gabriela a Home Med? No Antibiotics Is Patient on Antibiotics? Yes If Yes: infection
[2016-12-04 08:51] VITALS: BP 154/76
[2016-12-04 09:21] LABS: GRANULOCYTE % 48.9 % (42.2-75.2)
--- NOTE | 2016-12-04 10:52 | NUR ---
NURSING NOTE: LESLEY ALVARADO AWARE THAT PT DOES NOT WANT SITZ BATH AT THIS TIME
[2016-12-04 15:54] VITALS: BP 172/68
[2016-12-04 17:32] VITALS: BP 150/64
[2016-12-05 00:38] VITALS: BP 138/68
--- NOTE | 2016-12-05 07:05 | PN- General Surgery ---
See Addendum Subjective Subjective: The patient was seen this morning. She still complains of buttock discomfort but is otherwise comfortable. She denies any nausea vomiting and is tolerating a full liquid diet without issue. Objective Vital Signs and I&Os Vital Signs Date Time Temp Pulse Resp B/P Pulse O2 O2 Flow FiO2 Ox Delivery Rate 12/05 0038 97.9 77 20 138/68 98 Nasal 2.0L Cannula 12/05 0000 Nasal 2.0L Cannula 12/04 1732 150/64 12/04 1600 94 Nasal 2.0L Cannula 12/04 1554 97.7 84 20 172/68 97 Nasal 2.0L Cannula 12/04 1505 Nasal 2.0L Cannula 12/04 0851 97.5 80 20 154/76 95 Nasal 2.0L Cannula 12/04 0800 95 Nasal 2.0L Cannula Intake & Output 12/05 0800 12/05 0000 12/04 1600 12/04 0800 12/04 0000 12/03 1600 Intake Total 1416.8 946.8 800 1106.8 Output Total 925 1050 333 359 9976 Balance -925 366.8 21.8 290 -218.2 Intake, IV 150 110 200 150 Intake, Lipid 116.8 116.8 116.8 Intake, Oral 550 120 600 240 Intake, 600 600 600 TPN/PPN Output, 0 Gastric Drainage Output, Stool 100 75 10 125 Output, Urine 925 950 256 556 4511 Physical Exam: Gen.: Alert and in obvious distress Skin: Warm and dry Abdomen: Soft, obese, mild peristomal tenderness, bowel sounds positive. Ileostomy is pink and viable with output in the bag. Externus: Bilateral external's are warm without calf tenderness there is trace edema. Assessment/Plan Assessment/Plan Assessment: 71-year-old female status post creation of diverting loop ileostomy and multiple washouts of perirectal collection due to a colovesical vaginal fistula. Postoperatively the patient has been slow to progress but her ileus is slowly improving and she is tolerating a full liquid diet without nausea. Plan: Wean TPN and discontinue later today Encourage increased by mouth intake but keep on full liquids until ileostomy output is more significant Out of bed and ambulate Follow-up morning labs Attempt to decrease narcotics GI and DVT prophylaxis Physical therapy and total respiratory care to increase mobility and decreased oxygen need Continue IV antibiotics Core Measures/Miscellaneous Guadarrama Catheter Date In: 11/17/16 Venous Thromboembolism VTE Risk Factors: Age > 40, Surgery VTE Contraindications: No Contraindications VTE Prophylaxis Ordered Inpt Mech & Pharm VTE Diagnosis: No VTE Type: NONE VTE Confirmed by (Test): NONE Beta Gabriela Is Beta Gabriela a Home Med? No Antibiotics Is Patient on Antibiotics? Yes If Yes: infection
[2016-12-05 08:13] VITALS: BP 138/70
--- NOTE | 2016-12-05 08:42 | NUR ---
NURSING NOTE: 0800AM; LIPIDS DCD PER MD ORDER. WEANING TPN OFF. TPN RATE CUT IN HALF PER MD ORDER AT 0800AM; NEW RATE IS 37.5ML/HR FROM 0800AM-1200PM, RATE WILL BE CUT IN HALF AGAIN FROM 12-16PM RATE WILL BE 18.ML/HR AT THAT TIME. WILL CHECK FSG 1 HOUR AND 2 HOURS POST STOPPING TPN PER PA ORDER AND ROGERIO Nielson PT UPDATED, WILL REPORT TO NEXT SHIFT RN THIS AFTERNOON, CONT TO MONITOR. CLARIFIED WITH Meme DE JESUS AND RHONDA ALVARADO
--- NOTE | 2016-12-05 10:05 | NUR ---
NURSING NOTE: REFUSING EBONY ORTIZ, CHRISTIANO 416 AWARE
[2016-12-05 16:17] VITALS: BP 138/62
--- NOTE | 2016-12-05 16:32 | NUR ---
NURSING NOTE; TPN STOPPED AT 1600 PER MD ORDER. WILL CHECK PT BLOOD SUGAR AT 1700, 1800, 1900 PER MD ORDER. WILL CONTINUE TO MONITOR.
--- NOTE | 2016-12-05 18:20 | NUR ---
NURSING NOTE; LATE ENTRY; PT REFUSING 1600 SITZ BATH, SAYS SHE MAY WANT TO HAVE ONE LATER. FARRUKH ALVARADO AWARE. WILL CONTINUE TO MONITOR.
--- NOTE | 2016-12-05 18:20 | NUR ---
NURSING NOTE; PT BLOOD SUGAR AT 1800 IS 97, THIS RN NOT COVERING HER WITH INSULIN. SURGICAL PA AWARE. WILL CONTINUE TO MONITOR.
--- NOTE | 2016-12-05 23:52 | NUR ---
NURSING NOTE; LATE ENTRY. PT REFUSING SITZ BATH AT 1600 AND 2200. SURGICAL PA AWARE. WILL CONTINUE TO MONITOR.
[2016-12-06 00:28] VITALS: BP 132/62
[2016-12-06 07:50] LABS: ABSOLUTE BASOPHIL COUNT 0 /CUMM (0.0-0.2); ABSOLUTE EOSINOPHIL COUNT 0.2 /CUMM (0.0-0.7); ABSOLUTE MONOCYTE COUNT 0.2 /CUMM (0.10-0.60); RBC DISTRIBUTION WIDTH 24.4 % (11.5-14.5)
[2016-12-06 08:28] LABS: ABSOLUTE GRANULOCYTE CT 1.4 /CUMM (1.4-6.5); ABSOLUTE LYMPH COUNT 0.9 /CUMM (1.2-3.4); BASOPHIL % 1.6 % (0.0-2.0); EOSINOPHIL % 7.7 % (0-5); GRANULOCYTE % 50.5 % (42.2-75.2); HEMATOCRIT 21.4 % (37-47); MEAN CORPUSCULAR HGB 32.8 PG (27.0-31.0); MEAN CORPUSCULAR HGB CONC 33.7 G/DL (33.0-37.0); MEAN CORPUSCULAR VOLUME 97.5 FL (81.0-99.0); MEAN PLATELET VOLUME 11.6 FL (7.4-10.4); WHITE BLOOD CELL COUNT 2.8 /CUMM (4.8-10.8)
[2016-12-06 08:32] VITALS: BP 125/62
[2016-12-06 08:49] LABS: PLATELET COUNT 153 /CUMM (130-400)
--- NOTE | 2016-12-06 10:43 | NUR ---
PHYSICAL THERAPY: Pt REFUSING THERAPY THIS MORNING REPORTING "CAN YOU COME BACK LATER? I HAVE NOT BEEN ABLE TO SLEEP AT ALL". PT WILL REVIST IF ABLE.
--- NOTE | 2016-12-06 11:22 | PN- General Surgery ---
Surgical Brief Attending Note Brief Attending Note: Overall doing well w return of gi fxn and control of sepsis. Noted to be rather anemic w LEIGH and edema so will transfuse 2 units today and adminisster diuretic today. Hold D/C to STR until tomorrow. Agree w PA findings as above
--- NOTE | 2016-12-06 12:52 | PN- General Surgery ---
Subjective Subjective: Late Entry Patient seen earlier this morning. Complained of shortness of breath with exertion, just moving around in bed. Was not on oxygen prior to hospital admission. Feels her mouth is dry. Denies CP/SOB, N/V, F/C. Tolerating LRD. Voiding spontaneously. Objective Vital Signs and I&Os Vital Signs Date Time Temp Pulse Resp B/P Pulse O2 O2 Flow FiO2 Ox Delivery Rate 12/06 831 98.0 85 20 125/62 96 Nasal 1.5L Cannula 12/06 08 93 Room Air 12/06 0028 97.9 89 20 132/62 97 12/06 0000 Nasal 1.5L Cannula 12/05 1617 98.1 84 20 138/62 96 Nasal 2.0L Cannula 12/05 1600 Nasal 1.5L Cannula Intake & Output 12/06 0812/06 0000 12/05 1600 12/05 0000 Intake Total 220 1000 1275.0 936.8 Output Total 200 1650 850 925 Balance 20 -650 425.0 936.8 -925 Intake, IV 100 200 150 100 Intake, Lipid 0 116.8 Intake, Oral 120 800 900 120 Intake, 225 600 TPN/PPN Output, Stool 200 250 100 Output, Urine 1400 750 925 Physical Exam: Gen: AAOx3 in NAD Cor: S1+S2+ Lungs: CTA petrona Abd: soft, NT, ND, +BS x4 Ileostomy functioning well, stool/gas in bag. Stoma pink. Ext: no edema or calf tenderness to petrona lower extremities Results Last 48 Hours of Labs: Laboratory Tests 12/06 613 Chemistry Sodium (137 - 145 mmol/L) 139 Potassium (3.5 - 5.1 mmol/L) 4.4 Chloride (98 - 107 mmol/L) 104 Carbon Dioxide (22 - 30 mmol/L) 26 Anion Gap (5 - 16) 8 BUN (7 - 17 mg/dL) 18 H Creatinine (0.5 - 1.0 mg/dL) 0.7 Estimated GFR (>60 ml/min) > 60 BUN/Creatinine Ratio (7 - 25 %) 25.7 H Hematology CBC w Diff NO MAN DIFF REQ WBC (4.8 - 10.8 /CUMM) 2.8 L RBC (4.20 - 5.40 /CUMM) 2.20 L Hgb (12.0 - 16.0 G/DL) 7.2 *L Hct (37 - 47 %) 21.4 L MCV (81.0 - 99.0 FL) 97.5 MCH (27.0 - 31.0 PG) 32.8 H RDW (11.5 - 14.5 %) 24.4 H Plt Count (130 - 400 /CUMM) 153 MPV (7.4 - 10.4 FL) 11.6 H Gran % (42.2 - 75.2 %) 50.5 Lymphocytes % (20.5 - 51.1 %) 33.6 Monocytes % (1.7 - 9.3 %) 6.6 Eosinophils % (0 - 5 %) 7.7 H Basophils % (0.0 - 2.0 %) 1.6 Absolute Granulocytes (1.4 - 6.5 /CUMM) 1.4 Absolute Lymphocytes (1.2 - 3.4 /CUMM) 0.9 L Absolute Monocytes (0.10 - 0.60 /CUMM) 0.2 Absolute Eosinophils (0.0 - 0.7 /CUMM) 0.2 Absolute Basophils (0.0 - 0.2 /CUMM) 0 PUBS MCHC (33.0 - 37.0 G/DL) 33.7 Assessment/Plan Assessment/Plan A: s/p diverting loop ileostomy; chronic anemia likely due to dilution and frequent blood draws; AVSS. Plan: Transfuse 2u prbc. Lasix 20 mg IV in between units. D/C to STR tomorrow. Core Measures/Miscellaneous Guadarrama Catheter Date In: 11/17/16 Venous Thromboembolism VTE Risk Factors: Age > 40, Surgery VTE Contraindications: No Contraindications VTE Prophylaxis Ordered Inpt Mech & Pharm VTE Diagnosis: No VTE Type: NONE VTE Confirmed by (Test): NONE Beta Gabriela Is Beta Gabriela a Home Med? No Antibiotics Is Patient on Antibiotics? Yes If Yes: infection
--- NOTE | 2016-12-06 16:27 | Patient Discharge Instructions ---
Discharge Instructions General Discharge Information You were seen/treated for: colovaginal fistula You had these procedures: multiple perineal washout ileostomy placement Watch for these problems: increased pain, swelling, redness or drainage from incisions, fever greater than 101F, chest pain or shortness of breath Call Surgeon to remove: vessel loop Other wound care: frequent sitz baths are imperative to healing Special Instructions: please elevate right arm and use warm compresses to affected red area. Diet Continue normal diet: Yes Activity Full Activity/No Limits: No Activity Self Limited: Yes Pounds, do NOT lift more than: 10 Acute Coronary Syndrome Inclusion Criteria At DC or during hospital stay patient has or had the following: ACS DIAGNOSIS No Discharge Core Measures Meds if any: Prescribed or Continued at Discharge Meds if any: NOT Prescribed or Continued at Discharge Congestive Heart Failure Inclusion Criteria At DC or during hospital stay patient has or had the following: CHF DIAGNOSIS No Discharge Core Measures Meds if any: Prescribed or Continued at Discharge Meds if any: NOT Prescribed or Continued at Discharge Cerebrovascular accident Inclusion Criteria At DC or during hospital stay patient has or had the following: CVA/TIA Diagnosis No Discharge Core Measures Meds if any: Prescribed or Continued at Discharge Meds if any: NOT Prescribed or Continued at Discharge Venous thromboembolism Inclusion Criteria VTE Diagnosis No VTE Type NONE VTE Confirmed by (Test) NONE Discharge Core Measures - Per Current guidelines, there needs to be overlap - treatment for the first 5 days of Warfarin therapy. - If discharged on Warfarin prior to 5 days of - overlap therapy, the patient will need to be - assessed for post discharge needs including - *Post discharge parental anticoagulation - *Warfarin and/or parental anticoagulation education - *Follow up date to check INR post discharge At least 5 days overlap therapy as Inpatient No Meds if any: Prescribed or Continued at Discharge Note: Overlap Therapy is Warfarin and Anticoagulant Meds if any: NOT Prescribed or Continued at Discharge
[2016-12-06] MEDS ORDERED: HYDROMORPHONE HC2 M1 PO (16:28)
[2016-12-06] MEDS ORDERED: AUGMENTIN 875-1 EACH PO (16:30)
--- NOTE | 2016-12-06 16:37 | Surgical Discharge Summary ---
See Addendum Visit Information Visit Dates Admission Date: 11/16/16 Discharge Date: 12/07/16 History of Present Illness Chief Complaint: PERIRECTAL PAIN Medical History Blood Transfusion Hx: No Neurological: NONE EENT: allergies Cardiovascular: hypertension Respiratory: asthma, pneumonia Gastrointestinal: GERD, ULCERS Hepatic: NONE Renal: NONE Musculoskeletal: chronic back pain, osteoarthritis Psychiatric: NONE Endocrine: NONE Blood Disorders: NONE Cancer(s): rectal ca History of MRSA: No History of VRE: No History of CDIFF: No Isolation History: Standard Pneumonia Vaccine: 08/30/15 Influenza Vaccine: 09/08/16 Surgical History Pertinent Surgical History: lower anterior resection with diverting ileostomy 2006 reversal in 2006 with creation of an ileostomy and subsequent reversal in tonsillectomy Psychosocial History Where Do You Live? Home Services at Home: None What is Your Primary Language? Palestinian ETOH Use: denies use Review of Systems: see H&P Hospital Course Course Attending Physician: lisa noyola Primary Care Physician: EUGENE SAAVEDRA MD Hospital Course: Mrs. Beal is a 71 year old female who was admitted on 11/16/16 for perirectal pain. She had been treated conservatively for 2-3 weeks prior to admission for a perirectal abscess. She ultimately underwent an exam under anesthesia with anal block with anoscopy/vaginoscopy/transretal drainage of presacral collection and an I&D of a left buttock collection on 11/17/16. She was discovered to have a colovaginal fistula and was kept on Unasyn post operatively. A diverting loop ileostomy and perineal washout was ultimately performed on 11/21/16 to allow her perineum to heal. The patient post operatively, was instructed to perform sitz baths which she continually refused despite continued education as to why they would be beneficial in her situation. She had a prolonged ileus and her diet was finally advanced after a short stint on TPN. She tolerated a low residue diet. Her pain was well controlled. Over her hospital course she needed multiple blood transfusions, attributed to acute blood loss from surgery and multiple phlebotomy sticks. On 12/07/2016, she was noted to have a superficial phlebitis of the right distal upper extremity. Ultrasound was done to rule out DVT. She was treated with warm compresses and elevation. She was stable for discharge to [facility] once she was medically optimized. Allergies: Coded Allergies: aspirin (Intermediate, GI UPSET 11/23/16) gluten (Mild, 11/18/16) lactase (From [employer]) (Mild, 11/18/16) Disposition Summary Disposition Principal Diagnosis: colovaginal fistula Additional Diagnosis: none Discharge Disposition: SNF Discharge Instructions General Discharge Information Code Status: Full Code Patient's Diet: low residue diet Patient's Activity: as tolerated, no heavy lifting or strenuous exercise Follow-Up Instructions/Appts: Dr. Noyola at your earliest convenience (1-2 weeks) Medications at Discharge Discharge Medications: Stop taking the following medications: Hydrocodone/Acetaminophen (Hydrocodon-Acetaminophn 10-325) 10 MG-325 MG TABLET Qty = 28 Amoxicillin/Clavulanate Potass (Amox-Clav 875-125 MG Tablet) 875 MG-125 MG TABLET Qty = 14 Continue taking these medications: Gabapentin (Gabapentin) 100 MG CAPSULE Qty = 30 Comments: Last Taken:12/07/16 Time:6 AM Start taking the following new medications: Hydromorphone HCl (Hydromorphone HCl) 2 MG TABLET 1-2 Tablet ORAL EVERY 3 HOURS NEEDED as needed for PAIN Qty = 60 No Refills Omeprazole (Omeprazole) 20 MG CAPSULE. 20 Milligram ORAL DAILY BEFORE BREAKFAST Qty = 30 Refills = 3 Comments: Last Taken:12/07/16 Time:6 AM Amoxicillin/Potassium Clav (Augmentin 875-125 Tablet) 875 MG-125 MG TABLET 1 Tablet ORAL TWICE DAILY Days = 10 No Refills Comments: NOT GIVEN WHILE IN HOSPITAL ALTERNATIVE IV ANTIBIOTIC GIVEN WHILE IN HOSPITAL (UNAYSN)
--- NOTE | 2016-12-06 20:19 | NUR ---
NURSING MISC MESSAGE NOTED TO WEAN OFF O2. PT HAD BEEN TITRATED OFF O2 SINCE EARLY THIS. PT HAD BEEN SATTING 93-96% ON RA. SURGICAL PA JUNE SALAZAR. WILL CONT TO MONITOR.
[2016-12-07 00:01] VITALS: BP 146/66
[2016-12-07 06:09] LABS: ABSOLUTE BASOPHIL COUNT 0 /CUMM (0.0-0.2); ABSOLUTE EOSINOPHIL COUNT 0.2 /CUMM (0.0-0.7); ABSOLUTE GRANULOCYTE CT 1.5 /CUMM (1.4-6.5); ABSOLUTE LYMPH COUNT 1.2 /CUMM (1.2-3.4); ABSOLUTE MONOCYTE COUNT 0.2 /CUMM (0.10-0.60); BASOPHIL % 0.6 % (0.0-2.0); EOSINOPHIL % 6.7 % (0-5); MEAN CORPUSCULAR HGB 31.8 PG (27.0-31.0); MEAN CORPUSCULAR HGB CONC 33.9 G/DL (33.0-37.0); MEAN CORPUSCULAR VOLUME 93.6 FL (81.0-99.0); MEAN PLATELET VOLUME 11.3 FL (7.4-10.4); PLATELET COUNT 167 /CUMM (130-400); RBC DISTRIBUTION WIDTH 22.8 % (11.5-14.5); WHITE BLOOD CELL COUNT 3.1 /CUMM (4.8-10.8)
[2016-12-07 06:30] LABS: HEMATOCRIT 26.5 % (37-47); RED BLOOD CELL CT 2.83 /CUMM (4.20-5.40)
--- NOTE | 2016-12-07 08:11 | PN- General Surgery ---
Subjective Subjective: Patient was anemic yesterday, requiring 2 units of PRBCs. She spent most of the day resting due to significant fatigue. No acute events overnight. She feels much better this morning. Her only complaint is right sided wrist pain. She is otherwise tolerating regular food and has excellent output from her ostomy. She is able to ambulate somewhat with assistance. She still tends to refuse most of her sitz baths. Otherwise denies headache, dizziness, chest pain, shortness of breath. Objective Vital Signs and I&Os Vital Signs Date Time Temp Pulse Resp B/P Pulse O2 O2 Flow FiO2 Ox Delivery Rate 12/07 0001 98.1 93 20 146/66 93 12/06 1900 96 Room Air 12/06 1500 96 Room Air 12/06 0900 93 Room Air 12/06 0832 98.0 85 20 125/62 96 Nasal 1.5L Cannula Intake & Output 12/07 1600 12/07 0800 12/07 0000 12/06 1600 12/06 0800 12/06 0000 Intake Total 360 1135 277 783 7778 Output Total 1200 1300 364 408 3836 Balance -840 -165 -230 20 -650 Intake, IV 100 475 370 100 200 Intake, Oral 260 660 300 120 800 Output, Stool 150 450 250 200 250 Output, Urine 1050 703 520 2913 Physical Exam: Gen.: Patient is awake and alert. No acute distress. Cardiac: Regular rate and rhythm Pulmonary: Lungs are clear to auscultation bilaterally. Abdomen: Soft, nondistended. No significant tenderness. Incisions are well- healed and intact. Stoma is pink with a good amount of loose bile tinged stool. Normoactive bowel sounds were heard. Extremities: There is a small area of erythema on the dorsal/radial aspect of the right wrist, with underlying tenderness and slight firmness/trace swelling. The area is warm. The firmness seems to follow the track of the superficial vein, indicating suspicion for phlebitis. Right upper extremity PICC line remains in place. Lower extremities contain trace edema, but no significant calf tenderness. Results Last 48 Hours of Labs: Laboratory Tests 12/07 12/06 0530 0614 Chemistry Sodium (137 - 145 mmol/L) 139 Potassium (3.5 - 5.1 mmol/L) 4.4 Chloride (98 - 107 mmol/L) 104 Carbon Dioxide (22 - 30 mmol/L) 26 Anion Gap (5 - 16) 8 BUN (7 - 17 mg/dL) 18 H Creatinine (0.5 - 1.0 mg/dL) 0.7 Estimated GFR (>60 ml/min) > 60 BUN/Creatinine Ratio (7 - 25 %) 25.7 H Hematology CBC w Diff MAN DIFF ORDERED NO MAN DIFF REQ WBC (4.8 - 10.8 /CUMM) 3.1 L 2.8 L RBC (4.20 - 5.40 /CUMM) 2.83 L 2.20 L Hgb (12.0 - 16.0 G/DL) 9.0 L 7.2 *L Hct (37 - 47 %) 26.5 L 21.4 L MCV (81.0 - 99.0 FL) 93.6 97.5 MCH (27.0 - 31.0 PG) 31.8 H 32.8 H RDW (11.5 - 14.5 %) 22.8 H 24.4 H Plt Count (130 - 400 /CUMM) 167 153 MPV (7.4 - 10.4 FL) 11.3 H 11.6 H Gran % (42.2 - 75.2 %) 47.0 50.5 Lymphocytes % (20.5 - 51.1 %) 38.5 33.6 Monocytes % (1.7 - 9.3 %) 7.2 6.6 Eosinophils % (0 - 5 %) 6.7 H 7.7 H Basophils % (0.0 - 2.0 %) 0.6 1.6 Absolute Granulocytes (1.4 - 6.5 /CUMM) 1.5 1.4 Segmented Neutrophils (42.2 - 75.2 %) 47 Band Neutrophils (0.0 - 5.0 %) 8 H Absolute Lymphocytes (1.2 - 3.4 /CUMM) 1.2 0.9 L Lymphocytes (20.5 - 51.1 %) 33 Monocytes (1.7 - 9.3 %) 4 Absolute Monocytes (0.10 - 0.60 /CUMM) 0.2 0.2 Eosinophils (0 - 5.0 %) 3 Absolute Eosinophils (0.0 - 0.7 /CUMM) 0.2 0.2 Basophils (0.0 - 2.0 %) 5 H Absolute Basophils (0.0 - 0.2 /CUMM) 0 0 Platelet Estimate (ADEQUATE) ADEQUATE Hypochromic-Microcytic 1+ Poikilocytosis 1+ Anisocytosis 2+ Microcytic Cells 1+ Macrocytic Cells 2+ Stomatocytes 1+ PUBS MCHC (33.0 - 37.0 G/DL) 33.9 33.7 Assessment/Plan Assessment/Plan Patient is a 71-year-old female who is now 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 She is status post washout on 11/17/2016, with subsequent laparoscopic loop ileostomy on 11/21/2016, followed by pelvic washout on 11/25/2016. She has been weaned off TPN and is currently tolerating a low residue diet. She remains afebrile and stable from a surgical standpoint. H&H is improved today after blood transfusion. Plan: -Patient is ready for discharge to short-term rehabilitation from a surgical standpoint. She is however experiencing what appears to be a superficial phlebitis of the right upper extremity. We will obtain a right upper extremity Doppler ultrasound prior to discharge to rule out DVT, since she has had a PICC line in this arm. Plan to remove the PICC line today. -Continue Unasyn until discharge, and then Augmentin 10 days will be given upon DC. -Low residue diet. -Encourage ambulation. -Oral Dilaudid can be used as needed for pain. -GI prophylaxis has been switched to Prilosec. -Continue subcutaneous heparin and Alps for DVT prophylaxis until discharge. -Will discuss with attending. Core Measures/Miscellaneous [place] Catheter Date In: 11/17/16 Still Needed? No Venous Thromboembolism VTE Risk Factors: Age > 40, Surgery VTE Contraindications: No Contraindications VTE Prophylaxis Ordered Inpt Mech & Pharm VTE Diagnosis: No VTE Type: NONE VTE Confirmed by (Test): NONE Beta Gabriela Is Beta Gabriela a Home Med? No Antibiotics Is Patient on Antibiotics? Yes If Yes: infection
[2016-12-07 08:30] VITALS: BP 140/58
--- NOTE | 2016-12-07 11:13 | ULTRASOUND REPORT ---
EXAMINATION: US TRIPLEX UPPER EXTREMITY, RIGHT CLINICAL INFORMATION: Right upper extremity edema, swelling. COMPARISON: None. TECHNIQUE: Color-flow triplex imaging with spectral analysis and compression Doppler were performed on the right upper extremity. FINDINGS: Respiratory variation, normal compression and augmented flow are noted throughout the right upper extremity. The visualized right internal jugular, innominate, subclavian, axillary, brachial, basilic, cephalic veins show no evidence of deep venous thrombosis. The site of the right wrist pain was also scanned, shows no sonographic detectable focal abnormality. Incidental note is made of a right-sided PICC line seen within the right basilic vein. IMPRESSION: Normal triplex scan without evidence of deep venous thrombosis involving the right upper extremity.
[2016-12-07] MEDS ORDERED: OMEPRAZOLE20 M2 PO (12:31)
[2016-12-07 12:54] VITALS: BP 140/58
== END 2016-12-07 14:00 | DRG 330 ==
LOC: ERH 11:15 → ERHI 16:53 → 2NB 16:53
PROVIDERS: Nurse Practitioner; Physician Assistant; Physician Assistant Medical; Physician Assistant Surgical; ADMIT Surgery
PROC: 0H98X0Z Drainage of Buttock Skin with Drainage Device, External Approach (ICD-10-PCS; principal; 2016-11-17)
PROC: 0DBP0ZX Excision of Rectum, Open Approach, Diagnostic (ICD-10-PCS; 2016-11-17)
PROC: 0D1B4Z4 Bypass Ileum to Cutaneous, Percutaneous Endoscopic Approach (ICD-10-PCS; 2016-11-21)
PROC: 0J990ZX Drainage of Buttock Subcutaneous Tissue and Fascia, Open Approach, Diagnostic (ICD-10-PCS; 2016-11-21)
PROC: 0D9P0ZZ Drainage of Rectum, Open Approach (ICD-10-PCS; 2016-11-25)
PROC: 3E1M38Z Irrigation of Peritoneal Cavity using Irrigating Substance, Percutaneous Approach (ICD-10-PCS; 2016-11-27)
PROC: 3E0436Z Introduction of Nutritional Substance into Central Vein, Percutaneous Approach (ICD-10-PCS; 2016-11-27)
PROC: 30233N1 Transfusion of Nonautologous Red Blood Cells into Peripheral Vein, Percutaneous Approach (ICD-10-PCS; 2016-12-06)
DX: N82.3 Fistula of vagina to large intestine (principal); L02.31 Cutaneous abscess of buttock; D64.9 Anemia, unspecified; K91.89 Other postprocedural complications and disorders of digestive system; K91.3 Postprocedural intestinal obstruction; Z85.048 Personal history of other malignant neoplasm of rectum, rectosigmoid junction, and anus; I10 Essential (primary) hypertension; Z87.891 Personal history of nicotine dependence
CPT/HCPCS: 2NBSP; 87070; 87075; 36415; 74000; 74020; 74022; 74177; 81001; 82436; 86920; 87040; 87086; 87147; 88305; 93005; 93010; 93970; 96374; 96375; 96376; 97001-GP; 97110-GO; 97116-GO; 97530-GO; C1769; J0131; J0744; J1100; J1644; J1885; J1940; J2405; J2550; J7040; J7042; P9016; S5012

== ENCOUNTER 2016-12-09 19:05 | Inpatient (IN) | payer OTHER ==
[~2016-12-09] VITALS: Ht 172.7 cm; Wt 106.6 kg
[~2016-12-09 19:05] MED LIST: AMOX-CLAV 875-1 EACH; AUGMENTIN 875-1 EACH PO; GABAPENTIN100 M2; HYDROCODON-ACE1 EAC1; HYDROMORPHONE HC2 M1 PO; OMEPRAZOLE20 M2 PO
--- NOTE | 2016-12-09 19:18 | ED GI/GU/ABDOMINAL COMPLAINT ---
History of Present Illness General Chief Complaint: Abdominal Pain/Flank Pain Stated Complaint: ABD PAIN Source: patient, family, old records Exam Limitations: clinical condition, severe pain Vital Signs & Intake/Output Vital Signs & Intake/Output Vital Signs Date Time Temp Pulse Resp B/P Pulse O2 O2 Flow FiO2 Ox Delivery Rate 12/11 1415 98.0 85 18 114/60 12/11 0829 98.0 85 18 114/60 96 Room Air ED Intake and Output 12/12 0000 12/11 1200 Intake Total 100 Output Total 110 Balance -10 Intake, Oral 100 Output, 10 Drainage Output, Stool 100 Allergies Coded Allergies: aspirin (Intermediate, GI UPSET 11/23/16) gluten (Mild, GI UPSET 12/09/16) lactase (From DAIRY AID) (Mild, LACTOSE INTOLERANT 12/09/16) Reconcile Medications Hydromorphone HCl 2 MG TABLET 1-2 TAB PO Q3P PRN PAIN Lactobacillus Acidophilus (Probiotic) (Unknown Strength) CAPSULE (Unknown Dose ) PO DAILY PROBIOTIC (Reported) Omeprazole 20 MG CAPSULE.DR 20 MG PO DAILY AC INDIGESTION Triage Nurses Notes Reviewed? yes ? n Is pt currently ? No Onset: Abrupt Duration: hour(s):, continues in ED Quality/Severity: severe Location: generalized abdomen Radiation: no radiation Activities at Onset: sleep Prior Abdominal Problems: SEE HPI HPI: Patient presents for evaluation of severe epigastric abdominal pain that began prior to arrival. Patient states that she was taking a nap upon onset and awoke with pain. The pain is constant but cannot be described. Patient denies any prior episodes. She is status post colostomy on November 17. She has had nausea and vomiting but no diarrhea. Past History Travel History Traveled to [place] past 21 day No Medical History Any Pertinent Medical History? see below for history Neurological: NONE EENT: allergies Cardiovascular: hypertension Respiratory: asthma, pneumonia Gastrointestinal: GERD, ULCERS Hepatic: NONE Renal: NONE Musculoskeletal: chronic back pain, osteoarthritis Psychiatric: NONE Endocrine: NONE Blood Disorders: NONE Cancer(s): rectal ca History of MRSA: No History of VRE: No History of CDIFF: No Pneumonia Vaccine: 08/30/15 Influenza Vaccine: 09/08/16 Surgical History Surgical History: lower anterior resection with diverting ileostomy 2006 reversal in 2006 with creation of an ileostomy and subsequent reversal in tonsillectomy Psychosocial History Services at Home None What is your primary language [place] Family History Hx Contributory? No Review of Systems Review of Systems Constitutional: Reports: no symptoms. EENTM: Reports: no symptoms. Respiratory: Reports: no symptoms. Cardiovascular: Reports: no symptoms. GI: Reports: see HPI. Genitourinary: Reports: no symptoms. Musculoskeletal: Reports: no symptoms. Skin: Reports: no symptoms. Neurological/Psychological: Reports: no symptoms. Hematologic/Endocrine: Reports: no symptoms. Immunologic/Allergic: Reports: no symptoms. All Other Systems: Reviewed and Negative Physical Exam Physical Exam Gastrointestinal: see below Comments: Gen.: Well-nourished, well-developed, no acute respiratory distress. Head: Normocephalic, atraumatic. Eyes: Normal inspection bilaterally Ears: Normal inspection bilaterally Nose: Normal inspection Throat/mouth : Moist mucosa Neck: Supple, full range of motion, no goiter Heart: Regular rate and rhythm, no murmurs rubs or gallops Lungs: Clear to auscultation bilaterally with normal air entry Chest: Nontender Back: Normal range of motion Abdomen: Soft, epigastric tenderness without rebound or guarding, nondistended, normal bowel sounds, no palpable masses Extremities: Normal range of motion grossly, equal radial pulses, no cyanosis clubbing or edema, calves nontender Neurologic: Cranial nerves grossly intact, speech is clear Skin: warm and dry Psychiatric: Calm, cooperative, no apparent delusions or hallucinations Core Measures ACS in differential dx? No Severe Sepsis Present: No Septic Shock Present: No Progress Differential Diagnosis: aortic disease, perforated viscus, bowel obstruction, pancreatitis, biliary colic Plan of Care: Orders Procedure Date/time Status Therapeutic Exercise 12/11 UNK Complete Gait Training 12/11 UNK Complete Discharge Patient 12/11 UNK Active OXYGEN SETUP CHG 12/10 UNK Complete OXYGEN 12/10 UNK Complete OXYGEN TRANSPORT 12/10 UNK Complete Laboratory Tests 12/11/16 0925: Anion Gap 10, Estimated GFR > 60, BUN/Creatinine Ratio 18.6, CBC w Diff MAN DIFF ORDERED, RBC 3.00 L, MCV 95.7, MCH 31.9 H, RDW 24.3 H, MPV 10.4, Gran % 59.3, Lymphocytes % 32.9, Monocytes % 0.5 L, Eosinophils % 6.8 H, Basophils % 0.5, Absolute Granulocytes 2.7, Segmented Neutrophils 45, Band Neutrophils 13 H, Absolute Lymphocytes 1.5, Lymphocytes 31, Monocytes 5, Absolute Monocytes 0 L, Eosinophils 5, Absolute Eosinophils 0.3, Basophils 1, Absolute Basophils 0, Platelet Estimate VERIFIED BY SMEAR, Normocytic RBCs VERIFIED, Normochromic RBCs VERIFIED, PUBS MCHC 33.3 Diagnostic Imaging: Discussed w/RAD: CT Scan. Radiology Impression: PATIENT: CARINE PAYTON PRESENT AGE: 71 PATIENT ACCOUNT NO: [id number] : 44 LOCATION: [facility] ORDERING PHYSICIAN: ARUN LEE MD SERVICE DATE: 12/09/16 EXAM TYPE: CAT - CT ABD & PELVIS W IV CONTRAST; CT CHEST W IV CONTRAST EXAMINATION: CT CHEST WITH CONTRAST CT ABDOMEN AND PELVIS WITH CONTRAST CLINICAL INFORMATION: Pneumonia. Hiatal hernia. Effusion. Severe epigastric pain. Postop colostomy placement. COMPARISON: CT chest, abdomen and pelvis 03/20/2011. TECHNIQUE: Multidetector volumetric CT imaging of the chest, abdomen and pelvis was obtained after the administration of 95 mL of intravenous Optiray 320 without immediate adverse reactions. DLP: 1061.89 mGy-cm. FINDINGS: CT CHEST: Lungs: Emphysematous change of lungs. No acute infiltrate. Central bronchial airways are open. No bronchiectasis. No interstitial change. Small focal pleural thickening at the minor fissure, axial image 31 (3). Mediastinum: No mediastinal mass or significant lymphadenopathy. There is vascular calcifications of the aorta without aneurysm or dissection. Pleura: There is no pleural effusion. No pleural mass or thickening. Axilla: No lymphadenopathy. CT ABDOMEN AND PELVIS: LIVER, GALLBLADDER, AND BILIARY TREE: The liver is normal in size, shape, and attenuation. No focal hepatic lesion or biliary ductal dilatation is present. The gallbladder is unremarkable with no evidence of radiopaque gallstones, gallbladder wall thickening, or obvious pericholecystic inflammatory changes. PANCREAS: No acute change of the pancreas. No mass. No pancreatic duct dilatation. SPLEEN: Spleen normal in size and contour. No focal lesion. ADRENAL GLANDS: Adrenal glands are normal in size. No focal mass. KIDNEYS AND URETERS: The kidneys are normal in size, shape, and attenuation. No hydronephrosis, hydroureter, or calculi seen. No perinephric stranding. BLADDER: Unremarkable. MESENTERY/GASTROINTESTINAL TRACT: Small bowel obstruction. There is a small bowel loop herniated into a left periumbilical hernia. This is causing obstruction of the small bowel. The distal small bowel is decompressed. Large bowel is decompressed. There is ostomy at the right side of the abdomen. Retained contrast in decompressed large bowel loops. Flow in the pelvis. There is a catheter extending through the rectum into the presacral space where there is a fluid collection. Fluid collection has an air-fluid level within it. The collection measures approximately 4.7 x 3.8 x 5 cm. ABDOMINAL WALL: There is a ventral wall hernia. Small bowel loop herniates through the defect causing obstruction with small bowel. The ventral wall hernia is at the left side of the umbilicus. Defect measures 3 cm transverse by 2 cm superior inferior. LYMPH NODES: Normal. VASCULAR: Vascular wall calcifications of the aorta and iliac arteries without aneurysm. PELVIC VISCERA: Uterus is anteverted. No adnexal abnormality. OSSEOUS STRUCTURES: Degenerative change of the spine with disc height narrowing and endplate spurs and facet joint arthrosis. Vacuum disc phenomenon at multiple levels. IMPRESSION: CT CHEST: No acute change. CT ABDOMEN PELVIS: 1. Drainage catheter extending through the rectum into the presacral space where there is a fluid collection with an air-fluid level. 2. Ostomy right side of abdomen. 3. Small bowel obstruction with herniation of the small bowel loop into the left periumbilical hernia causing this obstruction of the small bowel. DICTATED BY: CHARLA SAUNDERS MD DATE/TIME DICTATED:12/09/162227 RECORD CLERK:JESENIA DATE/TIME TRANSCRIBED:12/09/162227 CONFIDENTIAL, DO NOT COPY WITHOUT APPROPRIATE AUTHORIZATION. <Electronically signed in Other Vendor System> SIGNED BY: CHARLA SAUNDERS MD 12/09/16 5836 Initial ED EKG: none Comments: 12/09/2016 8:15:48 PM patient is feeling better but still has a bit of pain. Additional pain medication ordered. dr kelly. Departure Departure Disposition: STILL A PATIENT Condition: Stable Clinical Impression Primary Impression: Ventral hernia with bowel obstruction Referrals: EUGENE SAAVEDRA MD (PCP/Family) Departure Forms: Customer Survey General Discharge Information OR/GI Note Spoke With: ÁNGELA KELLY MD ED Treatment Decision: CARINE PAYTON requires urgent operative management of a ventral hernia with small bowel obstruction that cannot be performed in the Emergency Room setting. Transport To: [facility]
--- NOTE | 2016-12-09 19:20 | NUR ---
71 YO FEMALE TO ER FROM [facility]. PT WAS RECENTLY D/C FROM [place] THIS PAST WEEKENED. STATES SHE HAD SURGERY ON AN ABCESS ON HER BOTTOM AND GOT AN ILEOSTOMY. STATES SHE WOKE UP THIS AM AND DIDNT FEEL HERSELF. STATES SHE ATE [employer] FOR LUNCH AND HER ABDOMEN STARTED TO HURT AND SHE BECOME NAUSEOUS. STATES SHE VOMTITED X1. PT STATES SHE HAS MYLANTA WITHOUT RELIEF. ON ARRIVAL, PT PALE IN COLOR, MOVING AROUND IN PAIN ON STRETCHER. DR LEE TO ROOM ON ARRIVAL. PT MEDICATED WITH 4MG IV ZOFRAN AND 4MG IN MORPHINE PER ORDER BY DR LEE. PT VOMTITED X1 IN ROOM.
--- NOTE | 2016-12-09 19:25 | NUR ---
PT REPORTS RELIEF AFTER MEDICATION ADMINISTRATION.
[2016-12-09] MEDS ORDERED: PROBIOTIC1 EACH PO (20:21)
--- NOTE | 2016-12-09 20:27 | NUR ---
PT C/O 08/09 PAIN. PT MEDICATED WITH MORPHINE PER ORDER.
[2016-12-09 20:29] LABS: ABSOLUTE BASOPHIL COUNT 0 /CUMM (0.0-0.2); ABSOLUTE EOSINOPHIL COUNT 0 /CUMM (0.0-0.7); ABSOLUTE LYMPH COUNT 0.4 /CUMM (1.2-3.4); RED BLOOD CELL CT 3.24 /CUMM (4.20-5.40)
--- NOTE | 2016-12-09 20:30 | NUR ---
ATTEMPTED TO GIVE MORPHINE. UNABLE TO GIVE. IV INFILTRATED. IV PULLED OUT AND WARM COMPRESS APPLIED. 22 GAUGE IV ESTABLISHED IN RIGHT HAND FOR PAIN MEDICATION.
[2016-12-09 20:34] LABS: ABSOLUTE GRANULOCYTE CT 2.2 /CUMM (1.4-6.5); ABSOLUTE MONOCYTE COUNT 0.2 /CUMM (0.10-0.60); BASOPHIL % 1.1 % (0.0-2.0); EOSINOPHIL % 1.3 % (0-5); HEMATOCRIT 30.6 % (37-47); MEAN CORPUSCULAR HGB 31.9 PG (27.0-31.0); MEAN CORPUSCULAR HGB CONC 33.8 G/DL (33.0-37.0); MEAN CORPUSCULAR VOLUME 94.5 FL (81.0-99.0); PLATELET COUNT 215 /CUMM (130-400); RBC DISTRIBUTION WIDTH 23.3 % (11.5-14.5); WHITE BLOOD CELL COUNT 2.8 /CUMM (4.8-10.8)
[2016-12-09 20:39] LABS: GRANULOCYTE % 78.5 % (42.2-75.2)
--- NOTE | 2016-12-09 21:09 | NUR ---
PT REPORTS PAIN DECREASING AFTER BEING MEDICATED. PT APPEARS COMFORTBALE. FAMILY AT BEDSIDE
--- NOTE | 2016-12-09 21:14 | NUR ---
JADE OCHOA AT BEDSIDE TRYING TO GET IV FOR CT
--- NOTE | 2016-12-09 21:25 | NUR ---
THIS NURSE ATTMEPTED TWICE FOR IV ACCESS WITHOUT SUCCESS
--- NOTE | 2016-12-09 21:31 | NUR ---
UNABLE TO GET IV FOR CT. MD LEE AWARE
[2016-12-09 21:34] LABS: MEAN PLATELET VOLUME 10.9 FL (7.4-10.4)
--- NOTE | 2016-12-09 22:23 | NUR ---
PT BACK FROM CT SCAN
--- NOTE | 2016-12-09 22:30 | NUR ---
PT APPEARS COMFORTBALE. DENIES PAIN. FAMILY AT BEDSIDE. WILL CONTINUE TO MONITOR.
--- NOTE | 2016-12-09 22:50 | CT SCAN REPORT ---
EXAMINATION: CT CHEST WITH CONTRAST CT ABDOMEN AND PELVIS WITH CONTRAST CLINICAL INFORMATION: Pneumonia. Hiatal hernia. Effusion. Severe epigastric pain. Postop colostomy placement. COMPARISON: CT chest, abdomen and pelvis 03/20/2011. TECHNIQUE: Multidetector volumetric CT imaging of the chest, abdomen and pelvis was obtained after the administration of 95 mL of intravenous Optiray 320 without immediate adverse reactions. DLP: 1061.89 mGy-cm. FINDINGS: CT CHEST: Lungs: Emphysematous change of lungs. No acute infiltrate. Central bronchial airways are open. No bronchiectasis. No interstitial change. Small focal pleural thickening at the minor fissure, axial image 31 (3). Mediastinum: No mediastinal mass or significant lymphadenopathy. There is vascular calcifications of the aorta without aneurysm or dissection. Pleura: There is no pleural effusion. No pleural mass or thickening. Axilla: No lymphadenopathy. CT ABDOMEN AND PELVIS: LIVER, GALLBLADDER, AND BILIARY TREE: The liver is normal in size, shape, and attenuation. No focal hepatic lesion or biliary ductal dilatation is present. The gallbladder is unremarkable with no evidence of radiopaque gallstones, gallbladder wall thickening, or obvious pericholecystic inflammatory changes. PANCREAS: No acute change of the pancreas. No mass. No pancreatic duct dilatation. SPLEEN: Spleen normal in size and contour. No focal lesion. ADRENAL GLANDS: Adrenal glands are normal in size. No focal mass. KIDNEYS AND URETERS: The kidneys are normal in size, shape, and attenuation. No hydronephrosis, hydroureter, or calculi seen. No perinephric stranding. BLADDER: Unremarkable. MESENTERY/GASTROINTESTINAL TRACT: Small bowel obstruction. There is a small bowel loop herniated into a left periumbilical hernia. This is causing obstruction of the small bowel. The distal small bowel is decompressed. Large bowel is decompressed. There is ostomy at the right side of the abdomen. Retained contrast in decompressed large bowel loops. Flow in the pelvis. There is a catheter extending through the rectum into the presacral space where there is a fluid collection. Fluid collection has an air-fluid level within it. The collection measures approximately 4.7 x 3.8 x 5 cm. ABDOMINAL WALL: There is a ventral wall hernia. Small bowel loop herniates through the defect causing obstruction with small bowel. The ventral wall hernia is at the left side of the umbilicus. Defect measures 3 cm transverse by 2 cm superior inferior. LYMPH NODES: Normal. VASCULAR: Vascular wall calcifications of the aorta and iliac arteries without aneurysm. PELVIC VISCERA: Uterus is anteverted. No adnexal abnormality. OSSEOUS STRUCTURES: Degenerative change of the spine with disc height narrowing and endplate spurs and facet joint arthrosis. Vacuum disc phenomenon at multiple levels. IMPRESSION: CT CHEST: No acute change. CT ABDOMEN PELVIS: 1. Drainage catheter extending through the rectum into the presacral space where there is a fluid collection with an air-fluid level. 2. Ostomy right side of abdomen. 3. Small bowel obstruction with herniation of the small bowel loop into the left periumbilical hernia causing this obstruction of the small bowel.
--- NOTE | 2016-12-09 23:45 | NUR ---
PT C/O 06/08 PAIN. PT MEDICATED WITH MORPHINE PER ORDE
--- NOTE | 2016-12-10 00:30 | NUR ---
PT REPORTS PAIN DECREASING AFTER BEING MEDICATED.
--- NOTE | 2016-12-10 01:20 | NUR ---
PT A/O X4. RESP UNLABORED. NSR ON THE MONITOR. SKIN WARM AND DRY. NO APPARENT DISTRESS.
--- NOTE | 2016-12-10 01:21 | NUR ---
PT TO OR
--- NOTE | 2016-12-10 03:43 | Operative Report ---
Operative/Inv Procedure Report Surgery Date: 12/10/16 Name of Procedure: Incisional ventral hernia repair with Ventrilex 6.4 cm [facility] Pre-Operative Diagnosis: Incisional ventral hernia with incarcerated small bowel and partial small bowel obstruction Post-Operative Diagnosis: Same Estimated Blood Loss: less than 50ml Surgeon/Associate Manager Affiliate Marketing: ÁNGELA KELLY MD Anesthesia: general endotracheal tube Urine Output: 400 cc Drains: #7 DANYEL drain Specimens: Hernia sac Complications: None Condition: Stable Operative Indication: Patient is a 71 year old woman with remote history of rectal cancer status post neoadjuvant chemoradiation, LAR with diverting loop ileostomy and ileostomy reversal. Patient recently developed presacral pain that was closed by the anastomotic breakdown colovaginal fistula and a large presacral cavity. Patient underwent diverting laparoscopic loop ileostomy and multiple washouts of the presacral wound. Patient was discharged to the rehabilitation a few days ago. Patient started exercising in the rehabilitation, and developed acute onset of severe abdominal pain approximately 8-9 hours ago. She also had decreased stoma output and emesis. Patient was brought to the emergency room for further evaluation. Although her for vital signs and labs were normal, on imaging she was found to have small incisional ventral hernia just to the left and slightly inferior to the umbilicus with loops of small bowel incarcerated in it. Any attempt to reduce the hernia in the emergency room has failed. Due to the patient's comorbidities, incarceration of the small bowel loops within the hernia, and very narrow neck of the hernia, the decision was made to proceed with emergent incisional ventral hernia repair. All risks benefits and alternatives of the surgery have been described to the patient, and she agreed with the plan. Operative/Procedure Note Note: Patient was taken to the operating room and placed in supine position on the operating table. Bilateral lower extremity SCDs were placed on both legs. Preoperative antibiotics were given. General endotracheal anesthesia was established by anesthesia team. Orogastric tube was placed and connected to the suction. Approximately 100 mL of water-like material was suctioned out. Guadarrama catheter was inserted. The patient was secured to the operating table, all pressure points were appropriately padded. Of note, once patient was paralyzed, the hernia had spontaneously reduced. The abdomen was prepped and draped in the standard surgical fashion. The surgical time out was done. A midline incision starting to the right side of the umbilicus and going down approximately 10 cm was made along the previous scar. It was deepened to the level of the fascia. A small hernia opening was localized slightly below and to the left of the umbilicus. The hernia sac was excised, and the fascial edges were clearly identified and grabbed with the Yeison clamps. There defect measured approximately 1 cm x 2 cm. It was at the level of their superior most portion of the previous midline incision. The decision was made to use a 6.4 cm Ventrilex mesh in underlay fashion to reinforce the repair. It was placed within the defect and pulled tightly against the abdominal wall. Care was taken to make sure that there was no small bowel sneaking around the edges of the mesh. Five 0-0 Maxon sutures were used to close the fascial defect and secure the mesh to the abdominal wall. The wound was irrigated with carpus amounts of warm irrigating fluid. And #7 DANYEL drain was placed over the fascia or in the soft tissues. The soft tissues were approximated over the drain in 2 layers using 2-0 Vicryl and 3-0 Vicryl sutures in the interrupted fashion. Skin was closed using the stapler. Sterile dressing was applied. Guadarrama was removed in the end of the case. The sponge and instrument counts were correct. Patient was wakened up and taken to recovery in stable condition. Findings: Slightly to the left and inferior to the umbilicus, at the level of the previous incision Discharge Disposition: inpatient
--- NOTE | 2016-12-10 04:01 | Admission Core Measures ---
Admission Lab Results I reviewed the following labs: Laboratory Tests 12/09 2006 Chemistry Sodium (137 - 145 mmol/L) 139 Potassium (3.5 - 5.1 mmol/L) 4.0 Chloride (98 - 107 mmol/L) 99 Carbon Dioxide (22 - 30 mmol/L) 25 Anion Gap (5 - 16) 16 BUN (7 - 17 mg/dL) 10 Creatinine (0.5 - 1.0 mg/dL) 0.7 Estimated GFR (>60 ml/min) > 60 BUN/Creatinine Ratio (7 - 25 %) 14.3 Glucose (65 - 99 mg/dL) 123 H Calcium (8.4 - 10.2 mg/dL) 9.2 Total Bilirubin (0.2 - 1.3 mg/dL) 0.8 AST (14 - 36 U/L) 21 ALT (9 - 52 U/L) 36 Alkaline Phosphatase (<127 U/L) 105 Total Protein (6.3 - 8.2 g/dL) 6.9 Albumin (3.5 - 5.0 g/dL) 3.7 Globulin (1.9 - 4.2 gm/dL) 3.2 Albumin/Globulin Ratio (1.1 - 2.2 %) 1.2 Lipase (23 - 300 U/L) 234 Hematology CBC w Diff NO MAN DIFF REQ WBC (4.8 - 10.8 /CUMM) 2.8 L RBC (4.20 - 5.40 /CUMM) 3.24 L Hgb (12.0 - 16.0 G/DL) 10.3 L Hct (37 - 47 %) 30.6 L MCV (81.0 - 99.0 FL) 94.5 MCH (27.0 - 31.0 PG) 31.9 H RDW (11.5 - 14.5 %) 23.3 H Plt Count (130 - 400 /CUMM) 215 MPV (7.4 - 10.4 FL) 10.9 H Gran % (42.2 - 75.2 %) 78.5 H Lymphocytes % (20.5 - 51.1 %) 13.2 L Monocytes % (1.7 - 9.3 %) 5.9 Eosinophils % (0 - 5 %) 1.3 Basophils % (0.0 - 2.0 %) 1.1 Absolute Granulocytes (1.4 - 6.5 /CUMM) 2.2 Absolute Lymphocytes (1.2 - 3.4 /CUMM) 0.4 L Absolute Monocytes (0.10 - 0.60 /CUMM) 0.2 Absolute Eosinophils (0.0 - 0.7 /CUMM) 0 Absolute Basophils (0.0 - 0.2 /CUMM) 0 PUBS MCHC (33.0 - 37.0 G/DL) 33.8 Admission Meds I reviewed the following Meds: Current Medications Sig/Dontae Start time Last Medication Dose Stop Time Status Admin Acetaminophen 1,000 MG Q6P PRN 12/10 99 AC (Ofirmev) N/A 1 UNIT (No Carrier) Dextrose/Sodium 1,000 ML .Q10H 12/10 0045 AC Chloride (D5W-1/2 Normal Saline 1000ML) Morphine Sulfate 2 MG Q2P PRN 12/10 99 AC (Morphine) Omeprazole 20 MG DAILY AC 12/10 0700 UNVr (Prilosec) Ondansetron HCl 4 MG Q8P PRN 12/10 44 AC (Zofran) Acute Coronary Syndrome Inclusion Criteria ACS Diagnosis No Inpatient Core Measures LDL Reminder: If No, please order W/I first 24hr of stay Congestive Heart Failure Inclusion Criteria CHF Diagnosis No Cerebrovascular accident Inclusion Criteria CVA/TIA Diagnosis No Inpatient Core Measures Bedside Swallow Eval Reminder: If BSE failed, place ST order Antithrombotic Reminder: Order Antithrombotic Medication by end of day 2 Antithrombotic Reminder: Document Reason Antithrombotic Not ordered by end of day 2 AFIB/Flutter Reminder: If Present, add to problem list AFIB/Flutter Reminder: Order Anticoag Medication for pts with AFIB/Flutter Atherosclerosis Reminder: If Present, add to problem list LDL Reminder: If No, please order W/I first 24hr of stay PT Order Reminder: If No, please order Venous thromboembolism Inpatient Core Measures VTE Risk Factors: Age > 40, Surgery VTE Prophylaxis Ordered Inpt Mech & Pharm No Mech VTE prophylaxis d/t No contraindications No VTE Pharm Prophylaxis d/t No contraindications Inclusion Criteria - Per Current guidelines, there needs to be overlap - treatment for the first 5 days of Warfarin therapy. - Parenteral Anticoagulation (IV or SC) needs to be - given along with Warfarin therapy. VTE Diagnosis No VTE Type NONE VTE Confirmed by (Test) NONE Problem List As ranked by this Provider includes Assessment & Plan 1. Ventral hernia with bowel obstruction HOME MEDS Home Med List Amoxicillin/Potassium Clav (Augmentin 875-125 Tablet) 875 MG-125 MG TABLET 1 TAB PO BID ANTIBIOTIC Hydromorphone HCl 2 MG TABLET 1-2 TAB PO Q3P PRN PAIN Lactobacillus Acidophilus (Probiotic) (Unknown Strength) CAPSULE (Unknown Dose ) PO DAILY PROBIOTIC (Reported) Omeprazole 20 MG CAPSULE.DR 20 MG PO DAILY AC INDIGESTION Discontinued Medications Amoxicillin/Clavulanate Potass (Amox-Clav 875-125 MG Tablet) 875 MG-125 MG TABLET ANTIBIOTIC, INFECTION (Reported) Discontinued reason: Changed to different med Hydrocodone/Acetaminophen (Hydrocodon-Acetaminophn 10-325) 10 MG-325 MG TABLET PAIN CONTROL (Reported) Discontinued reason: Changed to different med
--- NOTE | 2016-12-10 04:10 | History & Physical Pre-Op ---
DURAN VILCHIS 12/10/16 0403: General Information and HPI MD Statement: I have seen and personally examined CARINE PAYTON and documented this H&P. The patient is a 71 year old F who presented with a patient stated chief complaint of [epigastric pain and nausea]. Source of Information: patient Exam Limitations: no limitations History of Present Illness: Patient presents for evaluation of severe epigastric abdominal pain that began prior to arrival. Patient states that she was taking a nap upon onset and awoke with pain. The pain is constant but cannot be described. Patient denies any prior episodes. She is status post colostomy on November 17. She has had nausea and vomiting but no diarrhea. Allergies/Medications Allergies: Coded Allergies: aspirin (Intermediate, GI UPSET 11/23/16) gluten (Mild, GI UPSET 12/09/16) lactase (From DAIRY AID) (Mild, LACTOSE INTOLERANT 12/09/16) Home Med list Amoxicillin/Potassium Clav (Augmentin 875-125 Tablet) 875 MG-125 MG TABLET 1 TAB PO BID ANTIBIOTIC Hydromorphone HCl 2 MG TABLET 1-2 TAB PO Q3P PRN PAIN Lactobacillus Acidophilus (Probiotic) (Unknown Strength) CAPSULE (Unknown Dose ) PO DAILY PROBIOTIC (Reported) Omeprazole 20 MG CAPSULE.DR 20 MG PO DAILY AC INDIGESTION Past History Medical History Neurological: NONE EENT: allergies Cardiovascular: hypertension Respiratory: asthma, pneumonia Gastrointestinal: GERD, ULCERS Hepatic: NONE Renal: NONE Musculoskeletal: chronic back pain, osteoarthritis Psychiatric: NONE Endocrine: NONE Blood Disorders: NONE Cancer(s): rectal ca History of MRSA: No History of VRE: No History of CDIFF: No Isolation History: Standard Pneumonia Vaccine: 08/30/15 Influenza Vaccine: 09/08/16 Surgical History Pertinent Surgical History: lower anterior resection with diverting ileostomy 2006 reversal in 2006 with creation of an ileostomy and subsequent reversal in tonsillectomy Past Family/Social History Psychosocial History Who Do You Live With? spouse Services at Home None Smoking Status: Unknown If Ever Smoked Functional Ability ADLs Independent: dressing, eating, toileting, bathing. Ambulation: independent IADLs Independent: shopping, housework, finances, food prep, telephone, transportation , medication admin. Review of Systems Review of Systems Constitutional: Reports: see HPI. EENTM: Reports: no symptoms. Cardiovascular: Reports: no symptoms. Respiratory: Reports: no symptoms. GI: Reports: see HPI, abdominal pain, distention, nausea, vomiting. Genitourinary: Reports: no symptoms. Musculoskeletal: Reports: no symptoms. Skin: Reports: no symptoms. Neurological/Psychological: Reports: no symptoms. Hematologic/Endocrine: Reports: no symptoms. Immunologic/Allergic: Reports: no symptoms. All Other Systems: Reviewed and Negative Exam & Diagnostic Data Last 24 Hrs of Vital Signs/I&O Vital Signs Date Time Temp Pulse Resp B/P Pulse O2 O2 Flow FiO2 Ox Delivery Rate 12/10 0043 98.1 86 17 151/65 97 Room Air 12/09 2239 97.2 82 18 155/68 98 12/09 1956 98.7 88 20 180/75 92 Room Air Intake & Output 12/10 0800 12/10 0000 12/09 1600 Intake Total 0 Output Total Balance 0 Intake, Oral 0 Patient 160 lb Weight Physical Exam: Gen.: Well-nourished, well-developed, no acute respiratory distress. Head: Normocephalic, atraumatic. Eyes: Normal inspection bilaterally Ears: Normal inspection bilaterally Nose: Normal inspection Throat/mouth : Moist mucosa Neck: Supple, full range of motion, no goiter Heart: Regular rate and rhythm, no murmurs rubs or gallops Lungs: Clear to auscultation bilaterally with normal air entry Chest: Nontender Back: Normal range of motion Abdomen: Soft, epigastric tenderness without rebound or guarding, nondistended, normal bowel sounds, palpable ventral hernia left of midline, non-reducible Extremities: Normal range of motion grossly, equal radial pulses, no cyanosis clubbing or edema, calves nontender Neurologic: Cranial nerves grossly intact, speech is clear Skin: warm and dry Psychiatric: Calm, cooperative, no apparent delusions or hallucinations Last 24 Hrs of Labs/Dar: Laboratory Tests 12/09/162006: Anion Gap 16, Estimated GFR > 60, BUN/Creatinine Ratio 14.3, Glucose 123 H, Calcium 9.2, Total Bilirubin 0.8, AST 21, ALT 36, Alkaline Phosphatase 105, Total Protein 6.9, Albumin 3.7, Globulin 3.2, Albumin/Globulin Ratio 1.2, Lipase 234, CBC w Diff NO MAN DIFF REQ, RBC 3.24 L, MCV 94.5, MCH 31.9 H, RDW 23.3 H , MPV 10.9 H, Gran % 78.5 H, Lymphocytes % 13.2 L, Monocytes % 5.9, Eosinophils % 1.3, Basophils % 1.1, Absolute Granulocytes 2.2, Absolute Lymphocytes 0.4 L, Absolute Monocytes 0.2, Absolute Eosinophils 0, Absolute Basophils 0, PUBS MCHC 33.8 Microbiology 12/10 345 UPPER RESP: Surveillance Culture - ORD 12/10 345 GI: Surveillance Culture - ORD 12/10 215 URINE OR: Urine Culture - ORD Diagnostic Data Other Results Diagnostic Imaging: Discussed w/RAD: CT Scan. Radiology Impression: PATIENT: CARINE PAYTON PRESENT AGE: 71 PATIENT ACCOUNT NO: [id number] : 44 LOCATION: [facility] ORDERING PHYSICIAN: ARUN LEE MD SERVICE DATE: 12/09/16 EXAM TYPE: CAT - CT ABD & PELVIS W IV CONTRAST; CT CHEST W IV CONTRAST EXAMINATION: CT CHEST WITH CONTRAST CT ABDOMEN AND PELVIS WITH CONTRAST CLINICAL INFORMATION: Pneumonia. Hiatal hernia. Effusion. Severe epigastric pain. Postop colostomy placement. COMPARISON: CT chest, abdomen and pelvis 03/20/2011. TECHNIQUE: Multidetector volumetric CT imaging of the chest, abdomen and pelvis was obtained after the administration of 95 mL of intravenous Optiray 320 without immediate adverse reactions. DLP: 1061.89 mGy-cm. FINDINGS: CT CHEST: Lungs: Emphysematous change of lungs. No acute infiltrate. Central bronchial airways are open. No bronchiectasis. No interstitial change. Small focal pleural thickening at the minor fissure, axial image 31 (3). Mediastinum: No mediastinal mass or significant lymphadenopathy. There is vascular calcifications of the aorta without aneurysm or dissection. Pleura: There is no pleural effusion. No pleural mass or thickening. Axilla: No lymphadenopathy. CT ABDOMEN AND PELVIS: LIVER, GALLBLADDER, AND BILIARY TREE: The liver is normal in size, shape, and attenuation. No focal hepatic lesion or biliary ductal dilatation is present. The gallbladder is unremarkable with no evidence of radiopaque gallstones, gallbladder wall thickening, or obvious pericholecystic inflammatory changes. PANCREAS: No acute change of the pancreas. No mass. No pancreatic duct dilatation. SPLEEN: Spleen normal in size and contour. No focal lesion. ADRENAL GLANDS: Adrenal glands are normal in size. No focal mass. KIDNEYS AND URETERS: The kidneys are normal in size, shape, and attenuation. No hydronephrosis, hydroureter, or calculi seen. No perinephric stranding. BLADDER: Unremarkable. MESENTERY/GASTROINTESTINAL TRACT: Small bowel obstruction. There is a small bowel loop herniated into a left periumbilical hernia. This is causing obstruction of the small bowel. The distal small bowel is decompressed. Large bowel is decompressed. There is ostomy at the right side of the abdomen. Retained contrast in decompressed large bowel loops. Flow in the pelvis. There is a catheter extending through the rectum into the presacral space where there is a fluid collection. Fluid collection has an air-fluid level within it. The collection measures approximately 4.7 x 3.8 x 5 cm. ABDOMINAL WALL: There is a ventral wall hernia. Small bowel loop herniates through the defect causing obstruction with small bowel. The ventral wall hernia is at the left side of the umbilicus. Defect measures 3 cm transverse by 2 cm superior inferior. LYMPH NODES: Normal. VASCULAR: Vascular wall calcifications of the aorta and iliac arteries without aneurysm. PELVIC VISCERA: Uterus is anteverted. No adnexal abnormality. OSSEOUS STRUCTURES: Degenerative change of the spine with disc height narrowing and endplate spurs and facet joint arthrosis. Vacuum disc phenomenon at multiple levels. IMPRESSION: CT CHEST: No acute change. CT ABDOMEN PELVIS: 1. Drainage catheter extending through the rectum into the presacral space where there is a fluid collection with an air-fluid level. 2. Ostomy right side of abdomen. 3. Small bowel obstruction with herniation of the small bowel loop into the left periumbilical hernia causing this obstruction of the small bowel. DICTATED BY: CHARLA SAUNDERS MD DATE/TIME DICTATED:12/09/162227 TAPE DECK INSTALLER:JESENIA DATE/TIME TRANSCRIBED:12/09/162227 CONFIDENTIAL, DO NOT COPY WITHOUT APPROPRIATE AUTHORIZATION. <Electronically signed in Other Vendor System> SIGNED BY: CHARLA SAUNDERS MD 12/09/16 0554 Assessment/Plan Assessment/Plan: Admit to surgical service NPO Surgical intervention needed, to OR per Dr. Kelly for repair ventral hernia with small bowel obstruction As Ranked By This Provider Problem List: 1. Ventral hernia with bowel obstruction ÁNGELA KELLY MD 12/10/16 1617: General Information and HPI MD Statement: I have seen and personally examined CARINE PAYTON and documented this H&P. The patient is a 71 year old F who presented with a patient stated chief complaint of SBO due to incarcerated ventral hernia. Source of Information: patient Exam Limitations: no limitations Past History Medical History Blood Transfusion Hx: Yes DANCE DIRECTOR/Reproductive: NONE Other Medical Hx: rectal CA, presacral abscess, colovaginal fistula Active MRSA Infection: No Active VRE Infection: No Active CDIFF Infection: No Review of Systems Review of Systems Constitutional: Reports: weakness. Denies: chills, fever. EENTM: Reports: no symptoms. Denies: blurred vision, double vision, visual changes, eye pain, eye drainage, icterus. Cardiovascular: Denies: chest pain, edema, orthopena, palpitations, syncope. Respiratory: Denies: cough, hemoptysis, short of breath, sputum production. GI: Reports: abdominal pain, bloating, distention, vomiting. Genitourinary: Denies: discharge, dysuria, frequency, hematuria, hesitation. Musculoskeletal: Denies: gout, muscle pain, muscle stiffness, neck pain. Skin: Denies: cysts, change in skin color, dryness, erythema, jaundice. Neurological/Psychological: Reports: anxiety. Denies: ataxia, cognitive dysfunction, confusion, dementia, emotional problems, headache, paresthesia. Hematologic/Endocrine: Reports: bruising. Denies: bleeding, polyuria, polydipsia. Immunologic/Allergic: Denies: splenectomy, HIV/AIDS, lymphadenopathy. Exam & Diagnostic Data Last 24 Hrs of Vital Signs/I&O Vital Signs Date Time Temp Pulse Resp B/P Pulse O2 O2 Flow FiO2 Ox Delivery Rate 12/10 1551 98.2 93 17 108/78 92 Nasal 2.0L Cannula 12/10 1122 Nasal 3.0L Cannula 12/10 1048 Nasal 3.0L Cannula 12/10 08 94 Nasal 3.0L Cannula 12/10 08 98.7 92 20 124/60 94 Nasal 3.0L Cannula 12/10 0508 94 Nasal 3.0L Cannula 12/10 0508 92 Nasal 2.0L Cannula 12/10 0043 98.1 86 17 151/65 97 Room Air 12/099 97.2 82 18 155/68 98 12/09 1956 98.7 88 20 180/75 92 Room Air Intake & Output 12/10 1600 12/10 0800 12/10 0000 Intake Total 1160 1700 0 Output Total 125 405 Balance 1035 1295 0 Intake, IV 800 1700 Intake, Oral 360 0 Output, 25 5 Drainage Output, Stool 0 Output, Urine 100 400 Patient 235 lb 160 lb Weight Physical Exam General Appearance Alert, Oriented X3, Cooperative, No Acute Distress Skin No Rashes, No Significant Lesion HEENT Atraumatic, PERRLA, EOMI, Mucous Membr. moist/pink Neck Supple, No JVD, No thryomegaly Cardiovascular Regular Rate, No Murmurs Lungs Clear to Auscultation Abdomen incisional ventral hernia with incarcerated small bowel Neurological Cranial Nerves 3-12 NL Extremities No Clubbing, No Cyanosis, No Edema Vascular Normal Pulses Rectal colovaginal fistula, setons in place Attending MD Review Statement Attending Statement Attending MD Statement: examined this patient, discuss w/resident/PA/POLICYHOLDER INFORMATION CLERK, agreed w/resident/PA/POLICYHOLDER INFORMATION CLERK, discussed with family, reviewed EMR data (avail), reviewed images
--- NOTE | 2016-12-10 04:19 | Surgical Discharge Summary ---
Visit Information Visit Dates Admission Date: 12/10/16 Discharge Date: 12/11/16 History of Present Illness Chief Complaint: Abdominal pain, small bowel obstruction, ventral hernia Medical History Neurological: NONE EENT: allergies Cardiovascular: hypertension Respiratory: asthma, pneumonia Gastrointestinal: GERD, ULCERS Hepatic: NONE Renal: NONE Musculoskeletal: chronic back pain, osteoarthritis Psychiatric: NONE Endocrine: NONE Blood Disorders: NONE Cancer(s): rectal ca History of MRSA: No History of VRE: No History of CDIFF: No Isolation History: Standard Pneumonia Vaccine: 08/30/15 Influenza Vaccine: 09/08/16 Surgical History Pertinent Surgical History: lower anterior resection with diverting ileostomy 2006 reversal in 2006 with creation of an ileostomy and subsequent reversal in tonsillectomy Psychosocial History Services at Home: None What is Your Primary Language? Citizen Of [place] Review of Systems: see H&P Hospital Course Course Attending Physician: ÁNGELA KELLY MD Primary Care Physician: EUGENE SAAVEDRA MD Hospital Course: Patient admitted to hospital through emergency department for evaluation of acute onset of nausea and vomitting with epigastric pain. CT scan of abdomen demonstrates ventral hernia with small bowel obstruction. Patient was taken to operating room and a repair of her ventral hernia was done. She tolerated the procedure well and was transferred to the intensive care unit for recovery. Her diet was advanced and tolerated, she voided spontaneously. Her pain was well controlled. Her vital signs were stable and within normal limits. She was evaluated and treated by physical therapy. Once a STR bed was obtained, she was stable for discharge with outpatient follow up with Dr. Kelly. Allergies: Coded Allergies: aspirin (Intermediate, GI UPSET 11/23/16) gluten (Mild, GI UPSET 12/09/16) lactase (From DAIRY AID) (Mild, LACTOSE INTOLERANT 12/09/16) Disposition Summary Disposition Principal Diagnosis: Ventral hernia and small bowel obstruction Additional Diagnosis: none Discharge Disposition: SNF Discharge Instructions General Discharge Information Code Status: Full Code Patient's Diet: regular, advance as tolerated Patient's Activity: No lifting greater than 5 pounds, avoid using abdominal muscles Follow-Up Instructions/Appts: Please contact Dr. Kelly's office to arrange/confirm follow up appointment to be seen in 2 weeks from date of surgery. Medications at Discharge Discharge Medications: Stop taking the following medications: Amoxicillin/Potassium Clav (Augmentin 875-125 Tablet) 875 MG-125 MG TABLET ORAL TWICE DAILY Days = 10 Continue taking these medications: Hydromorphone HCl (Hydromorphone HCl) 2 MG TABLET 1-2 Tablet ORAL EVERY 3 HOURS NEEDED as needed for PAIN Qty = 60 Omeprazole (Omeprazole) 20 MG CAPSULE.DR 20 Milligram ORAL DAILY BEFORE BREAKFAST Qty = 30 Comments: Last Taken:12/07/16 Time:6 AM Lactobacillus Acidophilus (Probiotic) (Unknown Strength) CAPSULE Unknown Dose ORAL DAILY Comments: PER PT
--- NOTE | 2016-12-10 04:25 | Patient Discharge Instructions ---
Discharge Instructions General Discharge Information You were seen/treated for: Ventral hernia with small bowel obstruction You had these procedures: Open repair of ventral hernia with mesh Watch for these problems: increasing pain, redness, warmth. Increasing drainage from incision. Nausea and vomiting. Abdominal distension. Diarrhea. Fever greater than 101.5 Call Surgeon to remove: Tod Do not soak the wound: Yes No bath, but you may shower: Yes Other wound care: Ostomy care to continue, keep incision clean and dry. Diet Continue normal diet: Yes Recommended Diet: Regular Additional DIET Information: Advance as tolerated Activity Full Activity/No Limits: No Activity Self Limited: Yes Pounds, do NOT lift more than: 5 Other activity limits: No leg workout with weights Additional ACTIVITY Info: SITZ BATHS THREE TIMES A DAY Acute Coronary Syndrome Inclusion Criteria At DC or during hospital stay patient has or had the following: ACS DIAGNOSIS No Discharge Core Measures Meds if any: Prescribed or Continued at Discharge Meds if any: NOT Prescribed or Continued at Discharge Congestive Heart Failure Inclusion Criteria At DC or during hospital stay patient has or had the following: CHF DIAGNOSIS No Discharge Core Measures Meds if any: Prescribed or Continued at Discharge Meds if any: NOT Prescribed or Continued at Discharge Cerebrovascular accident Inclusion Criteria At DC or during hospital stay patient has or had the following: CVA/TIA Diagnosis No Discharge Core Measures Meds if any: Prescribed or Continued at Discharge Meds if any: NOT Prescribed or Continued at Discharge Venous thromboembolism Inclusion Criteria VTE Diagnosis No VTE Type NONE VTE Confirmed by (Test) NONE Discharge Core Measures - Per Current guidelines, there needs to be overlap - treatment for the first 5 days of Warfarin therapy. - If discharged on Warfarin prior to 5 days of - overlap therapy, the patient will need to be - assessed for post discharge needs including - *Post discharge parental anticoagulation - *Warfarin and/or parental anticoagulation education - *Follow up date to check INR post discharge At least 5 days overlap therapy as Inpatient No Meds if any: Prescribed or Continued at Discharge Note: Overlap Therapy is Warfarin and Anticoagulant Meds if any: NOT Prescribed or Continued at Discharge
--- NOTE | 2016-12-10 06:44 | PN- General Surgery ---
Subjective Subjective: Post op check: Patient s/p open repair ventral hernia with small bowel obstruction. C/O incisional pain. Denies chest pain, shortness of breath and difficulty breathing. Denies nausea and vomitting. Objective Vital Signs and I&Os Vital Signs Date Time Temp Pulse Resp B/P Pulse O2 O2 Flow FiO2 Ox Delivery Rate 12/10 050 94 Nasal 3.0L Cannula 12/10 050 92 Nasal 2.0L Cannula 12/10 0043 98.1 86 17 151/65 97 Room Air 12/099 97.2 82 18 155/68 98 12/09 1956 98.7 88 20 180/75 92 Room Air Intake & Output 12/10 0812/10 0000 12/09 1600 12/09 0812/09 0000 12/08 1600 Intake Total 0 Output Total Balance 0 Intake, Oral 0 Patient 235 lb 160 lb Weight Physical Exam: General: Alert and oriented x3, no acute distress Cardiac: RRR, s1s2 Pulmonary: Bilateral lung sounds clear to auscultation Abdomen: Soft, aba-incisional tenderness, non-distended, Ostomy changed in OR Extremiteis; Moves all extremities, distal sensation intact, dp pulses palp, bilateral calves soft and non-tender Surgical site: Dressing blood tinged, DANYEL holding suction Assessment/Plan Assessment/Plan This is a 71 year old female POD 0 s/p open repair ventral hernia -Diet advance as tolerated -F/U with Dr. Noyola regarding abx -OOB with pt -Morphine, dilaudid for pain -Keep drain until discharge -ALPS, sq heparin for dvt ppx Core Measures/Miscellaneous Venous Thromboembolism VTE Risk Factors: Age > 40, Surgery VTE Contraindications: No Contraindications VTE Prophylaxis Ordered Inpt Mech & Pharm VTE Diagnosis: No VTE Type: NONE VTE Confirmed by (Test): NONE Beta Gabriela Is Beta Gabriela a Home Med? No Antibiotics Is Patient on Antibiotics? Yes
--- NOTE | 2016-12-10 07:49 | NUR ---
LATE ENTRY PT RECEIVED FROM OR AT [address] DANYEL DRAINING SCANT AMT BLOOD, DRG MOD AMT BLOOD. PT IN PAIN RATING OF 10 WAS JUST GIVEN MEDICATION ON THE WAY TO ICU, NAPPING AT TIMES.ILEOSTOMY W/O DRAINAGE IV D1/2 HUNG AT 0500. NASAL 02 AT 3L TRANSFERED TO [facility] NO BEDS AVAILABLE WILL STAY IN ICU. HAS BLUE STRING COMING OUT OF RECTUM INFORMED BY PA IT IS A VESSAL LOOP. NO DRAINAGE NOTED. SKIN INTACT. MEDICATED AT 0515 AND 745 FOR PAIN.
[2016-12-10 08:00] VITALS: BP 124/60
[2016-12-10 09:10] LABS: ABSOLUTE BASOPHIL COUNT 0 /CUMM (0.0-0.2); ABSOLUTE EOSINOPHIL COUNT 0 /CUMM (0.0-0.7); ABSOLUTE GRANULOCYTE CT 3.6 /CUMM (1.4-6.5); ABSOLUTE LYMPH COUNT 0.7 /CUMM (1.2-3.4); ABSOLUTE MONOCYTE COUNT 0.4 /CUMM (0.10-0.60); BASOPHIL % 0.1 % (0.0-2.0); EOSINOPHIL % 0.4 % (0-5); HEMATOCRIT 29.5 % (37-47); MEAN CORPUSCULAR HGB 31.8 PG (27.0-31.0); MEAN CORPUSCULAR HGB CONC 33.5 G/DL (33.0-37.0); MEAN CORPUSCULAR VOLUME 94.9 FL (81.0-99.0); PLATELET COUNT 212 /CUMM (130-400); RBC DISTRIBUTION WIDTH 23.2 % (11.5-14.5); RED BLOOD CELL CT 3.11 /CUMM (4.20-5.40)
[2016-12-10 09:28] LABS: WHITE BLOOD CELL COUNT 5.1 /CUMM (4.8-10.8)
--- NOTE | 2016-12-10 15:34 | NUR ---
NURSING NOTE: PATIENT ARRIVED ON THE FLOOR FROM CCU @ 1510. PATIENT IS A&O X 3 WITH NO C/O PAIN OR DISCOMFORT. VS WNL WITH SPO2 95% ON 3L OF O2. NO LUANN OR SOB NOTED. IV #22 RF WITH D5-1/2NS @ 100ML/HR. ALSO IV #22 RH THAT IS HEP-LOCKED. ILLISOTOMY TO RLA IN PLACE WITH A SM AMT OF SOFT BROWN STOOL. THE STOMA PINK WITH THE SURROUNDING SKIN INTACT. . DANYEL DRAIN TO LLA WITH SCANT AMT OF BLOODY DRAINAGE. LARGE ECCHEMOTIC NOTED ON THE LLA MAY HAVE RESULTED FROM FREQUENT HEPARIN SHOTS IN THE SAME AREA. VESSEL LOOP DRAIN REMAINS IN PLACE IN THE PERIRECTAL AREA.
[2016-12-10 15:51] VITALS: BP 108/78
--- NOTE | 2016-12-10 16:04 | NUR ---
TRANSFERED TO ROOM 211, FAMILY NOTIFIED BY PATIENT. PATIENT ALERT ORIENTED X3, ON 3L NC. DANYEL DRAIN DRAINED 25ML BLOOD DRAINAGE. DRESSING TO MID ABDOMEN WITH OLD BLOODY DRAINAGE. ABDOMINAL BINDER ON. IVF D5 1/2 NS AT 100 ML/HR. TRANSFERRED TO BED TO ROOM 211. REPORT GIVEN TO KATIE OCHOA.
[2016-12-11 00:15] VITALS: BP 106/62
--- NOTE | 2016-12-11 07:56 | PN- General Surgery ---
See Addendum Subjective Subjective: POD #1 s/p open ventral hernia repair, DANYEL placement x1. Resting in bed. Comfortable. Voiding spontaneously. Ostomy functioning. Objective Vital Signs and I&Os Vital Signs Date Time Temp Pulse Resp B/P Pulse O2 O2 Flow FiO2 Ox Delivery Rate 12/11 0015 97.7 84 18 106/62 98 Nasal 2.0L Cannula 12/10 1551 98.2 93 17 108/78 92 Nasal 2.0L Cannula 12/10 1122 Nasal 3.0L Cannula 12/10 1048 Nasal 3.0L Cannula 12/10 799 94 Nasal 3.0L Cannula 12/10 799 98.7 92 20 124/60 94 Nasal 3.0L Cannula Intake & Output 12/11 0800 12/11 0000 12/10 1600 12/10 0812/10 0000 12/09 1600 Intake Total 100 1160 1700 0 Output Total 110 125 405 Balance -10 1035 1295 0 Intake, IV 800 1700 Intake, Oral 100 360 0 Output, 10 25 5 Drainage Output, Stool 100 0 Output, Urine 100 400 Patient 235 lb 160 lb Weight Physical Exam: Gen: AAOx3 in NAD Cor: S1+S2+ Lungs: CTA petrona Abd: soft, tender around incision to lower midline. DANYEL intact with serosanguinous drainage (15ml/17 hours) Ext: no edema or calf tenderness to petrona lower extremities. Results Last 48 Hours of Labs: Laboratory Tests 12/10 12/10 0830 0600 Chemistry Sodium (137 - 145 mmol/L) 140 Potassium (3.5 - 5.1 mmol/L) 4.3 Chloride (98 - 107 mmol/L) 101 Carbon Dioxide (22 - 30 mmol/L) 27 Anion Gap (5 - 16) 12 BUN (7 - 17 mg/dL) 9 Creatinine (0.5 - 1.0 mg/dL) 0.7 Estimated GFR (>60 ml/min) > 60 BUN/Creatinine Ratio (7 - 25 %) 12.9 Hematology CBC w Diff MAN DIFF ORDERED WBC (4.8 - 10.8 /CUMM) 5.1 RBC (4.20 - 5.40 /CUMM) 3.11 L Hgb (12.0 - 16.0 G/DL) 9.9 L Hct (37 - 47 %) 29.5 L MCV (81.0 - 99.0 FL) 94.9 MCH (27.0 - 31.0 PG) 31.8 H RDW (11.5 - 14.5 %) 23.2 H Plt Count (130 - 400 /CUMM) 212 MPV (7.4 - 10.4 FL) 11.0 H Gran % (42.2 - 75.2 %) 77.0 H Lymphocytes % (20.5 - 51.1 %) 15.0 L Monocytes % (1.7 - 9.3 %) 7.5 Eosinophils % (0 - 5 %) 0.4 Basophils % (0.0 - 2.0 %) 0.1 Absolute Granulocytes (1.4 - 6.5 /CUMM) 3.6 Segmented Neutrophils (42.2 - 75.2 %) 64 Band Neutrophils (0.0 - 5.0 %) 20 H Absolute Lymphocytes (1.2 - 3.4 /CUMM) 0.7 L Lymphocytes (20.5 - 51.1 %) 5 L Monocytes (1.7 - 9.3 %) 10 H Absolute Monocytes (0.10 - 0.60 /CUMM) 0.4 Absolute Eosinophils (0.0 - 0.7 /CUMM) 0 Absolute Basophils (0.0 - 0.2 /CUMM) 0 Metamyelocytes (0.0 - 1.0 %) 1 Platelet Estimate (ADEQUATE) VERIFIED BY SMEAR Poikilocytosis 1+ Anisocytosis 1+ PUBS MCHC (33.0 - 37.0 G/DL) 33.5 12/09 192 Chemistry Sodium (137 - 145 mmol/L) 139 Potassium (3.5 - 5.1 mmol/L) 4.0 Chloride (98 - 107 mmol/L) 99 Carbon Dioxide (22 - 30 mmol/L) 25 Anion Gap (5 - 16) 16 BUN (7 - 17 mg/dL) 10 Creatinine (0.5 - 1.0 mg/dL) 0.7 Estimated GFR (>60 ml/min) > 60 BUN/Creatinine Ratio (7 - 25 %) 14.3 Glucose (65 - 99 mg/dL) 123 H Calcium (8.4 - 10.2 mg/dL) 9.2 Total Bilirubin (0.2 - 1.3 mg/dL) 0.8 AST (14 - 36 U/L) 21 ALT (9 - 52 U/L) 36 Alkaline Phosphatase (<127 U/L) 105 Total Protein (6.3 - 8.2 g/dL) 6.9 Albumin (3.5 - 5.0 g/dL) 3.7 Globulin (1.9 - 4.2 gm/dL) 3.2 Albumin/Globulin Ratio (1.1 - 2.2 %) 1.2 Lipase (23 - 300 U/L) 234 Hematology CBC w Diff NO MAN DIFF REQ WBC (4.8 - 10.8 /CUMM) 2.8 L RBC (4.20 - 5.40 /CUMM) 3.24 L Hgb (12.0 - 16.0 G/DL) 10.3 L Hct (37 - 47 %) 30.6 L MCV (81.0 - 99.0 FL) 94.5 MCH (27.0 - 31.0 PG) 31.9 H RDW (11.5 - 14.5 %) 23.3 H Plt Count (130 - 400 /CUMM) 215 MPV (7.4 - 10.4 FL) 10.9 H Gran % (42.2 - 75.2 %) 78.5 H Lymphocytes % (20.5 - 51.1 %) 13.2 L Monocytes % (1.7 - 9.3 %) 5.9 Eosinophils % (0 - 5 %) 1.3 Basophils % (0.0 - 2.0 %) 1.1 Absolute Granulocytes (1.4 - 6.5 /CUMM) 2.2 Absolute Lymphocytes (1.2 - 3.4 /CUMM) 0.4 L Absolute Monocytes (0.10 - 0.60 /CUMM) 0.2 Absolute Eosinophils (0.0 - 0.7 /CUMM) 0 Absolute Basophils (0.0 - 0.2 /CUMM) 0 PUBS MCHC (33.0 - 37.0 G/DL) 33.8 Urines Urine Color Cancelled Urine Clarity Cancelled Urine pH Cancelled Ur Specific Orwell Cancelled Urine Protein Cancelled Urine Ketones Cancelled Urine Nitrite Cancelled Urine Bilirubin Cancelled Urine Urobilinogen Cancelled Ur Leukocyte Esterase Cancelled Ur Microscopic Cancelled Urine Hemoglobin Cancelled Urine Glucose Cancelled Assessment/Plan Assessment/Plan A: POD #1 s/p open ventral hernia repair; DANYEL x1. AVSS Plan: Oxygen weaned off. Dressing can be removed tomorrow. ? d/c DANYEL drain as it has minimal output (15ml/17 hours) OOB and ambulate with PT. Patient does not have bed hold at [facility]. Pref[facility] to go to [facility]- team to discuss placement with case management. Core Measures/Miscellaneous Venous Thromboembolism VTE Risk Factors: Age > 40, Surgery VTE Contraindications: No Contraindications VTE Prophylaxis Ordered Inpt Mech & Pharm VTE Diagnosis: No VTE Type: NONE VTE Confirmed by (Test): NONE Beta Gabriela Is Beta Gabriela a Home Med? No Antibiotics Is Patient on Antibiotics? Yes
[2016-12-11 08:29] VITALS: BP 114/60
[2016-12-11 10:05] LABS: ABSOLUTE BASOPHIL COUNT 0 /CUMM (0.0-0.2); ABSOLUTE EOSINOPHIL COUNT 0.3 /CUMM (0.0-0.7); ABSOLUTE GRANULOCYTE CT 2.7 /CUMM (1.4-6.5); ABSOLUTE LYMPH COUNT 1.5 /CUMM (1.2-3.4); ABSOLUTE MONOCYTE COUNT 0 /CUMM (0.10-0.60); BASOPHIL % 0.5 % (0.0-2.0); EOSINOPHIL % 6.8 % (0-5); GRANULOCYTE % 59.3 % (42.2-75.2); HEMATOCRIT 28.7 % (37-47); MEAN CORPUSCULAR HGB 31.9 PG (27.0-31.0); MEAN CORPUSCULAR HGB CONC 33.3 G/DL (33.0-37.0); MEAN CORPUSCULAR VOLUME 95.7 FL (81.0-99.0); MEAN PLATELET VOLUME 10.4 FL (7.4-10.4); PLATELET COUNT 216 /CUMM (130-400); RBC DISTRIBUTION WIDTH 24.3 % (11.5-14.5); WHITE BLOOD CELL COUNT 4.5 /CUMM (4.8-10.8)
[2016-12-11 14:15] VITALS: BP 114/60
== END 2016-12-11 14:50 | DRG 355 ==
LOC: ERH 19:05 → 2NB 12-10 00:50 → ERHI 12-10 00:50 → ENPENDDIS 12-10 00:50 → CRI 12-10 03:43 → 2NB 12-10 15:07
PROVIDERS: Emergency Medicine; Nurse Practitioner; Physician Assistant Surgical; ADMIT Surgery
PROC: 0WUF0JZ Supplement Abdominal Wall with Synthetic Substitute, Open Approach (ICD-10-PCS; principal; 2016-12-10)
DX: K43.1 Incisional hernia with gangrene (principal); K27.9 Peptic ulcer, site unspecified, unspecified as acute or chronic, without hemorrhage or perforation; I10 Essential (primary) hypertension; J45.909 Unspecified asthma, uncomplicated; Z85.048 Personal history of other malignant neoplasm of rectum, rectosigmoid junction, and anus; K21.9 Gastro-esophageal reflux disease without esophagitis; M19.90 Unspecified osteoarthritis, unspecified site
CPT/HCPCS: 2NBP; 36415; 74177; 82436; 86920; 87086; 88302; 96374; 96375; 96376; 97110-GO; 97116-GO; 97162-GP; 97530-GO; J0131; J0690; J1100; J1644; J2405; J7042

== ENCOUNTER 2017-01-05 19:34 | Emergency (ER) | payer OTHER ==
[~2017-01-05] VITALS: Ht 172.7 cm; Wt 93.0 kg
[~2017-01-05 19:34] MED LIST changes: +PROBIOTIC1 EACH PO
--- NOTE | 2017-01-05 19:58 | ED GENERAL ADULT ---
History of Present Illness General Chief Complaint: General Adult Stated Complaint: LOW WBC COUNT, FATIGUE Source: patient, family, old records, EMS, W[facility] Exam Limitations: no limitations Vital Signs & Intake/Output Vital Signs & Intake/Output Vital Signs Date Time Temp Pulse Resp B/P Pulse O2 O2 Flow FiO2 Ox Delivery Rate 01/05 2006 96.3 73 18 143/63 96 Nasal 3.0L Cannula Allergies Coded Allergies: aspirin (Intermediate, GI UPSET 11/23/16) gluten (Mild, GI UPSET 12/09/16) lactase (From DAIRY AID) (Mild, LACTOSE INTOLERANT 12/09/16) Reconcile Medications Acetaminophen (Acephen) 650 MG SUPP.RECT 1 SUPP [place] Q6H PRN PAIN/TEMP>101 ( Reported) Albuterol Sulfate (Proair Hfa) 90 MCG HFA.AER.AD 2 PUF INH Q6H PRN RESPIRATORY (Reported) Bisacodyl (Dulcolax) 10 MG SUPP.RECT 1 SUP RC DAILY PRN CONSTIPATION ( Reported) Budesonide/Formoterol Fumarate (Symbicort 160-4.5 Mcg Inhaler) 160 MCG-4.5 MCG/ ACTUATION HFA.AER.AD 2 PUF INH BID RESPIRATORY (Reported) Guaifenesin (Adult Tussin Chest Congestion) 100 MG/5 ML LIQUID 10 ML PO Q6H PRN COUGH (Reported) Hydromorphone HCl (Dilaudid) (Unknown Strength) TABLET 2 TAB PO Q6H PRN PAIN (Reported) Hydromorphone HCl 2 MG TABLET 1-2 TAB PO Q3P PRN PAIN Lactobacillus Acidophilus (Probiotic) (Unknown Strength) CAPSULE (Unknown Dose ) PO DAILY PROBIOTIC (Reported) Magnesium Hydroxide (Milk Of Magnesia) 400 MG/5 ML ORAL.SUSP 30 ML PO Q3D PRN CONSTIPATION (Reported) Na Phos,M-B/Na Phos,Di-Ba (Fleet Enema) 19 GRAM-7 GRAM/118 ML ENEMA 1 E RC DAILY PRN CONSTIPATION (Reported) Omeprazole 20 MG CAPSULE.DR 20 MG PO DAILY AC INDIGESTION Oxycodone HCl (Oxycontin) 20 MG TAB.ER.12H 1 TAB PO Q12H PAIN (Reported) Prednisone 10 MG TABLET STEROID TAPER (Reported) Zolpidem Tartrate (Ambien) 5 MG TABLET 1 TAB PO QHS PRN PAIN (Reported) Triage Nurses Notes Reviewed? yes HPI: Patient is at short-term rehabilitation and was sent in for evaluation of neutropenia. Patient has been running a fever for the past 4 days and has had increased oxygen demand. Patient is currently on a nasal cannula at 3 L/m. Patient states that her breathing is doing much better with the increased oxygen and the steroids. Patient is due to be discharged from rehabilitation on Thursday to go home. The patient had blood work obtained this morning and her white count came back at 0.8. Patient has a history of colorectal cancer 10 years ago but there is no evidence of return of cancer. Patient was sent in for evaluation. Patient has no other complaints. Patient denies any pain. Patient has had a nonproductive cough but she states that that is improving with the prednisone. Past History Travel History Traveled to [place] past 21 day No Medical History Any Pertinent Medical History? see below for history Neurological: NONE EENT: allergies Cardiovascular: hypertension Respiratory: asthma, pneumonia Gastrointestinal: GERD, ULCERS Hepatic: NONE Renal: NONE Musculoskeletal: chronic back pain, osteoarthritis Psychiatric: NONE Endocrine: NONE Blood Disorders: NONE Cancer(s): rectal ca CORN HUSKER/Reproductive: NONE Other Medical Hx: rectal CA, presacral abscess, colovaginal fistula History of MRSA: No History of VRE: No History of CDIFF: No Influenza Vaccine: 09/08/16 Surgical History Surgical History: lower anterior resection with diverting ileostomy 2006 reversal in 2006 with creation of an ileostomy and subsequent reversal in tonsillectomy Psychosocial History Who do you live with Spouse Services at Home None What is your primary language Kazakh Tobacco Use: Quit >30 days ago ETOH Use: denies use Illicit Drug Use: denies illicit drug use Family History Hx Contributory? No Review of Systems Review of Systems Constitutional: Reports: see HPI, chills, fever. EENTM: Reports: no symptoms. Respiratory: Reports: see HPI, cough. Cardiovascular: Reports: no symptoms. GI: Reports: no symptoms. Genitourinary: Reports: no symptoms. Musculoskeletal: Reports: see HPI, muscle pain. Skin: Reports: no symptoms. Neurological/Psychological: Reports: no symptoms. Hematologic/Endocrine: Reports: no symptoms. Immunologic/Allergic: Reports: no symptoms. All Other Systems: Reviewed and Negative Physical Exam Physical Exam General Appearance: well developed/nourished, alert, awake, anxious, mild distress Head: atraumatic, normal appearance Eyes: Bilateral: PERRL, EOMI. Ears, Nose, Throat: normal pharynx, normal ENT inspection, hearing grossly normal Neck: normal inspection, supple Respiratory: normal breath sounds, chest non-tender, no respiratory distress, lungs clear Cardiovascular: regular rate/rhythm, normal peripheral pulses Gastrointestinal: normal bowel sounds, soft, non-tender, no organomegaly, ILEOSTOMY FUNCTIONNING WELL. Back: normal inspection, normal range of motion Extremities: normal inspection, normal capillary refill, normal range of motion, no edema Neurologic/Psych: no motor/sensory deficits, awake, alert, oriented x 3, normal mood/affect Skin: intact, normal color, warm/dry Lymphatic: no anterior cervical pricilla Core Measures ACS in differential dx? No CVA/TIA Diagnosis: No Severe Sepsis Present: No Septic Shock Present: No Progress Differential Diagnoses I considered the following diagnoses in my evaluation of the patient: [Viral illness, neutropenia, septicemia, viremia, bacteremia, pneumonia] Plan of Care: Orders Procedure Date/time Status LACTIC ACID 01/05 2258 Active RAPID VIRAL INFLUENZA A 01/05 1958 Complete CULTURE,URINE 01/05 1958 Active BLOOD CULTURE 01/05 1958 Active URINALYSIS 01/05 1958 Active THYROID STIMULATING HORMONE 01/05 1958 Complete TROPONIN LEVEL 01/05 1958 Complete LACTIC ACID 01/05 1958 Complete COMPREHENSIVE METABOLIC PANEL 01/05 1958 Complete CBC WITHOUT DIFFERENTIAL 01/05 1958 Complete EKG 01/05 1958 Active Laboratory Tests 01/05/172024: Anion Gap 10, Estimated GFR > 60, BUN/Creatinine Ratio 20.0, Glucose 140 H, Lactic Acid 1.3, Calcium 8.8, Total Bilirubin 0.6, AST 30, ALT 37, Alkaline Phosphatase 99, Troponin I < 0.01, Total Protein 6.9, Albumin 3.6, Globulin 3.3, Albumin/Globulin Ratio 1.1, TSH 0.367, CBC w Diff NO MAN DIFF REQ, RBC 2.74 L, MCV 99.2 H, MCH 33.8 H, RDW 27.4 H, MPV 12.2 H, Gran % 80.2 H, Lymphocytes % 13.3 L, Monocytes % 5.8, Eosinophils % 0.2, Basophils % 0.5, Absolute Granulocytes 1.7, Absolute Lymphocytes 0.3 L, Absolute Monocytes 0.1 L, Absolute Eosinophils 0, Absolute Basophils 0, PUBS MCHC 34.0 Microbiology 01/05 2034 BLOOD: Blood Culture - RECD 01/05 2025 BLOOD: Blood Culture - RECD 01/05 1958 URINE ROUT: Urine Culture - ORD Diagnostic Imaging: Viewed by Me: Radiology Read. Discussed w/RAD: Radiology Read. CXR Impression: PATIENT: CARINE PAYTON PRESENT AGE: 71 PATIENT ACCOUNT NO: [id number] : 44 LOCATION: [facility] ORDERING PHYSICIAN: MARCELLO MARIE MD SERVICE DATE: 01/05/17 EXAM TYPE: RAD - XRY- PORTABLE CHEST XRAY EXAMINATION: XR PORTABLE CHEST CLINICAL INFORMATION: Fever and cough. COMPARISON: Chest x-ray 11/16/2016 TECHNIQUE: Portable AP portable view of the chest was obtained. 8:01 PM FINDINGS: No significant abnormality is noted involving the heart, lungs, mediastinum, bony thorax or soft tissues. IMPRESSION: No acute change of chest. DICTATED BY: CHARLA SAUNDERS MD DATE/TIME DICTATED:01/05/172013 P[employer]ODU[employer] SUPERVISOR:JESENIA DATE/TIME TRANSCRIBED:2013 CONFIDENTIAL, DO NOT COPY WITHOUT APPROPRIATE AUTHORIZATION. < Electronically signed in Other Vendor System> SIGNED BY: CHARLA SAUNDERS MD 2018 Initial ED EKG: NSR Prior EKG: unchanged Comments: Patient has been symptomatic for greater than 48 hours and is not a candidate for Tamiflu at this time. Departure Departure Disposition: ACUTE REHAB FACILITY Condition: Stable Clinical Impression Primary Impression: Influenza Referrals: YU CONNER,NONA Carreon (PCP/Family) Departure Forms: Customer Survey General Discharge Information Critical Care Note Critical Care Note Critical Care Time: non-applicable
--- NOTE | 2017-01-05 20:19 | RADIOLOGY REPORT ---
EXAMINATION: XR PORTABLE CHEST CLINICAL INFORMATION: Fever and cough. COMPARISON: Chest x-ray 11/16/2016 TECHNIQUE: Portable AP portable view of the chest was obtained. 8:01 PM FINDINGS: No significant abnormality is noted involving the heart, lungs, mediastinum, bony thorax or soft tissues. IMPRESSION: No acute change of chest.
[2017-01-05] MEDS ORDERED: DILAUDID4 M1 PO (20:20)
[2017-01-05] MEDS ORDERED: MILK OF MA400 MG/52 PO (20:57)
[2017-01-05] MEDS ORDERED: DULCOLAX10 M1 RC (20:58)
[2017-01-05] MEDS ORDERED: FLEET ENEMA133 ML RC (20:58)
[2017-01-05] MEDS ORDERED: PROAIR HFA8.5 GM INH (20:59)
[2017-01-05] MEDS ORDERED: ADULT TUSS100 MG/5 M PO (20:59)
[2017-01-05] MEDS ORDERED: OXYCONTIN20 M1 PO (21:14)
[2017-01-05] MEDS ORDERED: PREDNISONE10 M2 PO (21:26)
[2017-01-05] MEDS ORDERED: AMBIEN5 M1 PO (21:28)
[2017-01-05 21:29] LABS: ABSOLUTE BASOPHIL COUNT 0 /CUMM (0.0-0.2); ABSOLUTE EOSINOPHIL COUNT 0 /CUMM (0.0-0.7); ABSOLUTE GRANULOCYTE CT 1.7 /CUMM (1.4-6.5); ABSOLUTE LYMPH COUNT 0.3 /CUMM (1.2-3.4); ABSOLUTE MONOCYTE COUNT 0.1 /CUMM (0.10-0.60); BASOPHIL % 0.5 % (0.0-2.0); EOSINOPHIL % 0.2 % (0-5); HEMATOCRIT 27.2 % (37-47); MEAN CORPUSCULAR HGB 33.8 PG (27.0-31.0); MEAN CORPUSCULAR VOLUME 99.2 FL (81.0-99.0); MEAN PLATELET VOLUME 12.2 FL (7.4-10.4); RBC DISTRIBUTION WIDTH 27.4 % (11.5-14.5); RED BLOOD CELL CT 2.74 /CUMM (4.20-5.40)
[2017-01-05] MEDS ORDERED: SYMBICORT 16010.2 GM INH (21:29)
[2017-01-05 21:30] VITALS: BP 140/72
[2017-01-05 21:30] LABS: GRANULOCYTE % 80.2 % (42.2-75.2); PLATELET COUNT 144 /CUMM (130-400); WHITE BLOOD CELL COUNT 2.1 /CUMM (4.8-10.8)
[2017-01-05] MEDS ORDERED: ACEPHEN650 M1 PR (21:36)
[2017-01-05] MEDS ORDERED: DILAUDID2 M1 PO (22:13)
[2017-01-05] MEDS ORDERED: PAIN RELIEVER325 MG PO (22:13)
== END 2017-01-05 22:14 ==
LOC: ERH 19:34
PROVIDERS: Emergency Medicine
DX: J11.1 Influenza due to unidentified influenza virus with other respiratory manifestations (principal)
CPT/HCPCS: 87040; 87086; 87804; 87804-59; 93005; 93010

== ENCOUNTER 2017-11-25 12:58 | Inpatient (IN) | payer OTHER ==
[~2017-11-25] VITALS: Ht 172.7 cm; Wt 104.3 kg
[~2017-11-25 12:58] MED LIST changes: +ACEPHEN650 M1 PR; +ADULT TUSS100 MG/5 M PO; +AMBIEN5 M1 PO; +DILAUDID2 M1 PO; +DILAUDID4 M1 PO; +DULCOLAX10 M1 RC; +FLEET ENEMA133 ML RC; +MILK OF MA400 MG/52 PO; +OXYCONTIN20 M1 PO; +PAIN RELIEVER325 MG PO; +PREDNISONE10 M2 PO; +PROAIR HFA8.5 GM INH; +SYMBICORT 16010.2 GM INH
[2017-11-25] MEDS ORDERED: HYDROMORPHONE HC4 M1 PO (13:17)
[2017-11-25] MEDS ORDERED: COMBIVENT RESPIM4 GM INH (13:20)
[2017-11-25 13:29] LABS: MEAN CORPUSCULAR HGB 38.5 PG (27.0-31.0); MEAN CORPUSCULAR HGB CONC 33.8 G/DL (33.0-37.0); MEAN CORPUSCULAR VOLUME 114.2 FL (81.0-99.0); MEAN PLATELET VOLUME 11.6 FL (7.4-10.4); PLATELET COUNT 275 /CUMM (130-400); RBC DISTRIBUTION WIDTH 18.4 % (11.5-14.5); RED BLOOD CELL CT 1.75 /CUMM (4.20-5.40); WHITE BLOOD CELL COUNT 2.9 /CUMM (4.8-10.8)
[2017-11-25 14:46] LABS: PTT 25 SEC (25-37)
--- NOTE | 2017-11-25 15:07 | ED GI/GU/ABDOMINAL COMPLAINT ---
History of Present Illness General Chief Complaint: Abdominal Pain/Flank Pain Stated Complaint: BIBA ABD PAIN Source: patient, family, old records Exam Limitations: no limitations Vital Signs & Intake/Output Vital Signs & Intake/Output Vital Signs Date Time Temp Pulse Resp B/P B/P Pulse O2 O2 Flow FiO2 Mean Ox Delivery Rate 11/25 1519 91 16 132/87 95 Room Air 11/25 1319 Room Air Room Air 11/25 1301 97.8 86 20 144/66 95 Room Air Allergies Coded Allergies: aspirin (Intermediate, GI UPSET 11/23/16) gluten (Mild, GI UPSET 12/09/16) lactase (From DAIRY AID) (Mild, LACTOSE INTOLERANT 12/09/16) Reconcile Medications Albuterol Sulfate (Proair Hfa) 90 MCG HFA.AER.AD 2 PUF INH Q6H PRN RESPIRATORY (Reported) Budesonide/Formoterol Fumarate (Symbicort 160-4.5 Mcg Inhaler) 160 MCG-4.5 MCG/ ACTUATION HFA.AER.AD 2 PUF INH BID RESPIRATORY (Reported) Hydromorphone HCl 4 MG TABLET 1 TAB PO Q6H PRN PAIN (Reported) Ipratropium/Albuterol Sulfate (Combivent Respimat Inhal [place]) 20 MCG-100 MCG/ ACTUATION MIST.INHAL 1 PUFF INH 4XDAILY RESP. (Reported) Oxycodone HCl (Oxycontin) 20 MG TAB.ER.12H 1 TAB PO Q12H PAIN (Reported) Zolpidem Tartrate (Ambien) 5 MG TABLET 1 TAB PO QHS PRN PAIN (Reported) Triage Note: PT BIBA FROM HOME FOR RIGHT LOWER BACK/FLANK PAIN THAT STARTED LAST NIGHT AND TODAY PROGRESSED INTO R ABD AREA. PT VERY TENDER ON PALPATION TO R SIDED ABD. PT HAS ILEOSTOMY IN RLQ SINCE 2016. NO INFECTION OR COMPLICATIONS NOTED UPON ASSESSMENT. DENIES DIFFICULTIES WITH PASSING STOOL THROUGH ILEOSTOMY. PT DENIES SYMPTOMS WELL. +NAUSEA "BUT IT'S FROM THE PAIN." HAS NOT VOMITED. Triage Nurses Notes Reviewed? yes LMP (ages 10-50): unknown ? n Is pt currently ? No Onset: Abrupt Duration: day(s): (1), constant, continues in ED, getting worse Timing: single episode today Quality/Severity: throbbing Severity Numbers: 10 Location: right flank, right lower quadrant Radiation: no radiation Activities at Onset: none Prior Abdominal Problems: none Past Sexual History: Unobtainable at this time Modifying Factors: Worsens With: lying down, movement, palpation. Associated Symptoms: nausea/vomiting HPI: 72-year-old female past medical history of chronic back pain, colon cancer one year status post ileostomy, and hypertension brought in by an ulcer evaluation of abdominal pain. Patient states that she first noticed the pain last night and it is getting worse. The pain is located in the right flank and right lower quadrant it does not radiate. She describes it as throbbing pain. She rates it as a 10 out of 10. she Is taking oral Dilaudid and oxycodone without improvement. sHe reports associated nausea with no vomiting. She is moving stool into her ileostomy. She does report that she noticed some mucoid discharge from her rectum today. She normally does not have bowel movements. She states that there was some pink discharge but no gross blood. Additionally she reports shortness of breath on exertion fatigue weakness has been going on for several weeks. No fevers or chills no chest pains no hemoptysis or lower extremity edema. (Prieto Lynne) Past History Travel History Traveled to [place] past 21 day No Medical History Any Pertinent Medical History? see below for history Neurological: NONE EENT: allergies Cardiovascular: hypertension Respiratory: asthma, pneumonia Gastrointestinal: GERD, ULCERS Hepatic: NONE Renal: NONE Musculoskeletal: chronic back pain, osteoarthritis Psychiatric: NONE Endocrine: NONE Blood Disorders: NONE Cancer(s): rectal ca COMMUNITY COORDINATOR/Reproductive: NONE Other Medical Hx: rectal CA, presacral abscess, colovaginal fistula History of MRSA: No History of VRE: No History of CDIFF: No Surgical History Surgical History: lower anterior resection with diverting ileostomy 2006 reversal in 2006 with creation of an ileostomy and subsequent reversal in tonsillectomy Psychosocial History Who do you live with Spouse Services at Home None What is your primary language Chilean Tobacco Use: Quit >30 days ago ETOH Use: occasional use Illicit Drug Use: denies illicit drug use Family History Hx Contributory? No (Prieto Lynne) Review of Systems Review of Systems Constitutional: Reports: no symptoms. EENTM: Reports: no symptoms. Respiratory: Reports: see HPI, short of breath. Cardiovascular: Reports: no symptoms. GI: Reports: see HPI, abdominal pain, nausea. Genitourinary: Reports: no symptoms. Musculoskeletal: Reports: see HPI, back pain, muscle pain. Skin: Reports: no symptoms. Neurological/Psychological: Reports: no symptoms. Hematologic/Endocrine: Reports: no symptoms. Immunologic/Allergic: Reports: no symptoms. All Other Systems: Reviewed and Negative (Prieto Lynne) Physical Exam Physical Exam General Appearance: well developed/nourished, alert, awake, moderate distress, obese Head: atraumatic, normal appearance Eyes: Bilateral: normal appearance, PERRL, EOMI, normal inspection. Ears, Nose, Throat, Mouth: hearing grossly normal, moist mucous membrane Neck: normal inspection, supple, full range of motion Respiratory: normal breath sounds, chest non-tender, no respiratory distress, lungs clear Cardiovascular: regular rate/rhythm, normal peripheral pulses Peripheral Pulses: 2+ radial (R), 2+ radial (L) Gastrointestinal: normal bowel sounds, soft, no organomegaly, tenderness ( diffuse ), ileostomy site is clean dry and intact no pain with palpation no erythema and no induration. No discharge.light brown Stool is passing into the ileostomy bag. The stool is heme positive. Rectal: normal inspection, rectal tube in place. No gross blood Back: normal inspection, normal range of motion, no vertebral tenderness Extremities: normal range of motion, patient is able to move all extremities Neurologic/Psych: no motor/sensory deficits, awake, alert, oriented x 3, normal gait Skin: intact, normal color, warm/dry Core Measures ACS in differential dx? No Sepsis Present: No Sepsis Focused Exam Completed? No (Prieto Lynne) Progress Differential Diagnosis: AAA, appendicitis, biliary colic, bowel obstruction, cholecystitis, diverticulitis, ischemic bowel, kidney stone, pancreatitis, PID/ cervicitis, peptic ulcer, PUD/GERD, SBO, UTI/pyelo, abscess Plan of Care: Orders Procedure Date/time Status Regular Diet 11/25 B Active TROPONIN LEVEL 11/25 181 Active EKG 11/25 181 Active Patient Data 11/25 1739 Active BLOOD PRODUCT PICKUP 11/25 173 Active LEUKOCYTE POOR (PACKED CELLS) 11/25 1704 Active OXYGEN SETUP (GEN) 11/25 1634 Active Saline Lock 11/25 1634 Active Admit to inpatient 11/25 1634 Active Vital Signs 11/25 1634 Active Activity/Ambulation 11/25 1634 Active Code Status 11/25 1634 Active LACTIC ACID 11/25 1604 Active Add-on Test (ER Only) 11/25 1342 Active TYPE & SCREEN (NOT X-MATCH) 11/25 1342 Active PARTIAL THROMBOPLASTIN TIME 11/25 1315 Complete PROTHROMBIN TIME 11/25 1315 Complete URINALYSIS 11/25 1304 Active TROPONIN LEVEL 11/25 1304 Complete LIPASE 11/25 1304 Complete LACTIC ACID 11/25 1304 Complete COMPREHENSIVE METABOLIC PANEL 11/25 1304 Complete CBC WITHOUT DIFFERENTIAL 11/25 1304 Complete EKG 11/25 1304 Active Laboratory Tests 11/25/17 1812: Urine Color Pending, Urine Clarity Pending, Urine pH Pending, Ur Specific [place] Pending, Urine Protein Pending, Urine Ketones Pending, Urine Nitrite Pending, Urine Bilirubin Pending, Urine Urobilinogen Pending, Ur Leukocyte Esterase Pending, Ur Microscopic Pending, Urine Hemoglobin Pending, Urine Glucose Pending 11/25/17 1425: PT 12.0, INR 1.14, APTT 25 11/25/17 1345: Anion Gap 7, Estimated GFR > 60, BUN/Creatinine Ratio 17.5, Glucose 103 H, Lactic Acid 1.2, Calcium 8.8, Total Bilirubin 0.6, AST 15, ALT 27, Alkaline Phosphatase 87, Troponin I < 0.01, Total Protein 6.3, Albumin 3.4 L, Globulin 2.9, Albumin/Globulin Ratio 1.2, Lipase 62 11/25/17 1315: CBC w Diff MAN DIFF ORDERED, RBC 1.75 L, MCV 114.2 H, MCH 38.5 H, RDW 18.4 H , MPV 11.6 H, Segmented Neutrophils 48, Band Neutrophils 12 H, Lymphocytes 34, Monocytes 6, Platelet Estimate VERIFIED BY SMEAR, Anisocytosis 1+, Ovalocytes 1+ , PUBS MCHC 33.8 Patient seen and evaluated. The stool in her ileostomy is heme positive. Does not appear to be any signs of infection around the stoma site. She has pain in her right lower quadrant and right flank. CT scan is negative for any new findings. Patient was seen and evaluated by Dr. Kandy Bhatti in the ED. She does not feel like there is any surgical issues currently present. The patient is anemic and symptomatic reporting weakness shortness of breath on exertion and fatigue. She will require transfusion and endoscopy and colonoscopy. She has a negative troponin and unchanged EKG. Repeat EKG and troponin ordered. Spoke with Dr. Sam he is aware the patient will require endoscopy/colonoscopy. Additionally patient has severe right lower quadrant pain of uncertain etiology. She has received 2 mg of IV Dilaudid without significant improvement. She will require admission for intractable abdominal pain requiring IV pain meds. Case discussed with he agrees. Diagnostic Imaging: Viewed by Me: CT Scan. Discussed w/RAD: CT Scan. 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 Sagittal and coronal reformatted images were obtained on the technologist's workstation. DLP: 883.70 mGy-cm FINDINGS: LUNG BASES: There is mild dependent atelectasis at the lung bases. LIVER, GALLBLADDER, AND BILIARY TREE: The liver is normal in size, shape, and attenuation. No focal hepatic lesion or biliary ductal dilatation is present. The gallbladder is unremarkable with no evidence of radiopaque gallstones, gallbladder wall thickening, or obvious pericholecystic inflammatory changes. PANCREAS: Unremarkable. SPLEEN: Unremarkable. ADRENAL GLANDS: Unremarkable. KIDNEYS AND URETERS: The kidneys are normal in size, shape, and attenuation. No hydronephrosis, hydroureter, or calculi seen. No perinephric stranding. BLADDER: Unremarkable. GASTROINTESTINAL TRACT: There is a right lower quadrant ileostomy, with multiple small bowel loops herniating through the abdominal wall in the region of the ostomy in keeping with a parastomal hernia. Some segments of intra-abdominal small bowel are mildly distended with gas and fluid, while other segments are collapsed; no definite evidence for small bowel obstruction. Contrast is seen within segments of the colon which is otherwise anomaly collapsed. The appendix is not clearly visualized and may be collapsed. There is a redemonstrated catheter in the perirectal region. The presacral collection suspected to be composed of complex fluid appears overall similar in size to 12/09/2016, though now with significantly decreased gas compared to prior. ABDOMINAL WALL: Right lower quadrant ileostomy with parastomal hernia as noted above. LYMPH NODES: Normal. VASCULAR: There is atherosclerotic calcification along the aorta. PELVIC VISCERA : Unremarkable. OSSEOUS STRUCTURES: Degenerative changes are noted in the spine. IMPRESSION: 1. Right lower quadrant parastomal hernia. No definite evidence of bowel obstruction. 2. Redemonstrated catheter coursing through a presacral collection suspected to be composed of complex fluid. Overall collection size is similar to 12/09/2016, though there is now decreased gas within the collection compared to prior. DICTATED BY: Andi Peña MD DATE/TIME DICTATED:11/25/171543 SECURITIES SETTLEMENT PROCESSOR:JESENIA DATE/TIME TRANSCRIBED:11/25/171543 CONFIDENTIAL, DO NOT COPY WITHOUT APPROPRIATE AUTHORIZATION. Initial ED EKG: normal sinus rhythm, no ST T wave changes (Prieto Lynne) Departure Departure Disposition: STILL A PATIENT Condition: Stable Clinical Impression Primary Impression: Symptomatic anemia Referrals: Selena CONNER,Analia Hooker (PCP/Family) Departure Forms: Customer Survey General Discharge Information Admission Note Spoke With: Vee Cheatham MD Documentation of Exam: Documentation of any treatments & extenuating circumstances including Concerns Regarding Discharge (functional status, medication knowledge or non-compliance, living conditions, etc.) that warrant an admission rather than observation: [ Patient is bleeding both from her rectum and ileostomy. She has a hemoglobin of 6.8 that is down from the 9 several months ago. She is symptomatic complaining of shortness of breath dizziness and weakness. She requires transfusion, GI consult, colorectal consult, serial H&H's, monitoring of vital signs, endoscopy, colonoscopy] (Prieto Lynne) PA/PRE PRESS PROOFER Co-Sign Statement Statement: ED Attending supervision documentation- x I saw and evaluated the patient. I have also reviewed all the pertinent lab results and diagnostic results. I agree with the findings and the plan of care as documented in the PA's/PRE PRESS PROOFER's documentation. [] I have reviewed the ED Record and agree with the PA's/PRE PRESS PROOFER's documentation. [] Additions or exceptions (if any) to the PAs/PRE PRESS PROOFER's note and plan are summarized below: [] (Teo CONNER,Ronnie)
--- NOTE | 2017-11-25 16:07 | CT SCAN REPORT ---
EXAMINATION: CT ABDOMEN AND PELVIS WITH CONTRAST CLINICAL INFORMATION: Right lower quadrant abdominal pain for one day COMPARISON: 12/09/2016 TECHNIQUE: Multidetector volumetric imaging was performed of the abdomen and pelvis following IV administration of 94 mL of Optiray 320 intravenous contrast. Sagittal and coronal reformatted images were obtained on the technologist's workstation. DLP: 883.70 mGy-cm FINDINGS: LUNG BASES: There is mild dependent atelectasis at the lung bases. LIVER, GALLBLADDER, AND BILIARY TREE: The liver is normal in size, shape, and attenuation. No focal hepatic lesion or biliary ductal dilatation is present. The gallbladder is unremarkable with no evidence of radiopaque gallstones, gallbladder wall thickening, or obvious pericholecystic inflammatory changes. PANCREAS: Unremarkable. SPLEEN: Unremarkable. ADRENAL GLANDS: Unremarkable. KIDNEYS AND URETERS: The kidneys are normal in size, shape, and attenuation. No hydronephrosis, hydroureter, or calculi seen. No perinephric stranding. BLADDER: Unremarkable. GASTROINTESTINAL TRACT: There is a right lower quadrant ileostomy, with multiple small bowel loops herniating through the abdominal wall in the region of the ostomy in keeping with a parastomal hernia. Some segments of intra-abdominal small bowel are mildly distended with gas and fluid, while other segments are collapsed; no definite evidence for small bowel obstruction. Contrast is seen within segments of the colon which is otherwise anomaly collapsed. The appendix is not clearly visualized and may be collapsed. There is a redemonstrated catheter in the perirectal region. The presacral collection suspected to be composed of complex fluid appears overall similar in size to 12/09/2016, though now with significantly decreased gas compared to prior. ABDOMINAL WALL: Right lower quadrant ileostomy with parastomal hernia as noted above. LYMPH NODES: Normal. VASCULAR: There is atherosclerotic calcification along the aorta. PELVIC VISCERA: Unremarkable. OSSEOUS STRUCTURES: Degenerative changes are noted in the spine. IMPRESSION: 1. Right lower quadrant parastomal hernia. No definite evidence of bowel obstruction. 2. Redemonstrated catheter coursing through a presacral collection suspected to be composed of complex fluid. Overall collection size is similar to 12/09/2016, though there is now decreased gas within the collection compared to prior.
--- NOTE | 2017-11-25 18:37 | History & Physical ---
[facility] 11/25/17 1837: General Information and HPI MD Statement: I have seen and personally examined CARINE PAYTON and documented this H&P. The patient is a 72 year old F who presented with a patient stated chief complaint of [RLQ PAIN]. Source of Information: patient, family, old records Exam Limitations: no limitations History of Present Illness: Mrs. Payton is a 72 yo lady with a history of hypertension, osteoarthritis, hx. of celiac disease (on glutein free diet), chronic back pain, rectal cancer s /p post neoadjuvant chemoradiation therapy followed by low anterior resection with diverting loop ileostomy and ileostomy reversal 10 years ago, she had perirectal abscess last year at october with a reinsertion of ileostomy bag, and rectal drain tube she came in to emergency department with a c/o of right sided abdominal pain started today at 4 am. Yesterday before she went to sleep she had sever back pain, she used warm pad which helped with that, she woke up today at 4 am with sudden sever right side abdominal pain mainly in the RLQ, pain is throbbing in nature, 9/10 in severity, she has large amount of mucousy discharge from the rectal tube, she didn't noticed blood. Patient report that since her discharge from alf last december she was on home O2 2/2 to flu and pneumonia, she weaned off O2 completely on June, she was doing well until one month back when she started to noticed SOB on minimal exertion, she didn't seek medical advise for that, she also feels increased tierdness over the last month. Since October, she had multiple admission for rectovaginal fistula with anastomosis breakdown, perirectal abcess. She had colonoscopy done by her colorectal surgeon on January,. Patient report difficulty passing urine, she feels she want to bee but nothing coming, no burning sensation, frequency or urgency. She denies any chest pain, palpitation, fever, chills, sore throate, or vomiting. Allergies/Medications Allergies: Coded Allergies: aspirin (Intermediate, GI UPSET 11/23/16) gluten (Mild, GI UPSET 12/09/16) lactase (From DAIRY AID) (Mild, LACTOSE INTOLERANT 12/09/16) Home Med list Albuterol Sulfate (Proair Hfa) 90 MCG HFA.AER.AD 2 PUF INH Q6H PRN RESPIRATORY (Reported) Budesonide/Formoterol Fumarate (Symbicort 160-4.5 Mcg Inhaler) 160 MCG-4.5 MCG/ ACTUATION HFA.AER.AD 2 PUF INH BID RESPIRATORY (Reported) Hydromorphone HCl 4 MG TABLET 1 TAB PO Q6H PRN PAIN (Reported) Ipratropium/Albuterol Sulfate (Combivent Respimat Inhal [place]) 20 MCG-100 MCG/ ACTUATION MIST.INHAL 1 PUFF INH 4XDAILY RESP. 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 spouse Services at Home: None ETOH Use: occasional use Illicit Drug Use: denies illicit drug use Functional Ability ADLs Independent: dressing, eating, toileting, bathing. Ambulation: independent IADLs Independent: shopping, housework, finances, food prep, telephone, transportation , medication admin. Sexual History Past Sexual History Unobtainable at this time Review of Systems Review of Systems Constitutional: Reports: weakness. EENTM: Reports: no symptoms. Cardiovascular: Reports: no symptoms. Respiratory: Reports: short of breath. GI: Reports: abdominal pain, nausea. Genitourinary: Reports: hesitation. Musculoskeletal: Reports: back pain. Skin: Reports: no symptoms. Neurological/Psychological: Reports: no symptoms. All Other Systems: Reviewed and Negative Exam & Diagnostic Data Last 24 Hrs of Vital Signs/I&O Vital Signs Date Time Temp Pulse Resp B/P B/P Pulse O2 O2 Flow FiO2 Mean Ox Delivery Rate 11/26 0731 98.7 75 18 118/83 94 Nasal 2.0L Cannula 11/26 0000 Nasal 2.0L Cannula 11/25 1853 96.1 83 18 168/72 96 Nasal 2.0L Cannula 11/25 1519 91 16 132/87 95 Room Air 11/25 1319 Room Air Room Air 11/25 1301 97.8 86 20 144/66 95 Room Air Intake & Output 11/26 1600 11/26 0800 11/26 0000 Intake Total 1300 225 Output Total Balance 1300 225 Intake, Blood 700 Product Intake, IV 600 225 Patient 230 lb Weight Physical Exam General Appearance Alert, Oriented X3, Cooperative, Severe Distress Skin No Rashes, No Breakdown, No Significant Lesion Skin Temp/Moisture Exam: Warm/Dry HEENT Atraumatic, PERRLA, EOMI, Mucous Membr. moist/pink Neck Supple, No JVD Lymphatic Axillary nl, Cervical nl Cardiovascular Regular Rate, Normal S1, Normal S2, No Murmurs Lungs Clear to Auscultation, Normal Air Movement Abdomen Normal Bowel Sounds, Generalized tenderness, guard, Ileostomy bag in place Neurological Normal Gait, Normal Speech, Strength at 5/5 X4 Ext Extremities No Clubbing, No Cyanosis, No Edema Vascular Normal Pulses, Pulses Symmetrical Last 24 Hrs of Labs/Dar: Laboratory Tests 11/26/17 0640: Sodium Pending, Potassium Pending, Chloride Pending, Carbon Dioxide Pending, Anion Gap Pending, BUN Pending, Creatinine Pending, BUN/Creatinine Ratio Pending , CBC w Diff Pending, WBC Pending, RBC Pending, Hgb Pending, Hct Pending, MCV Pending, MCH Pending, RDW Pending, Plt Count Pending, MPV Pending, Gran % Pending, Lymphocytes % Pending, Monocytes % Pending, Eosinophils % Pending, Basophils % Pending, Absolute Granulocytes Pending, Absolute Lymphocytes Pending , Absolute Monocytes Pending, Absolute Eosinophils Pending, Absolute Basophils Pending, PUBS MCHC Pending 11/26/17 0030: CBC w Diff MAN DIFF ORDERED, RBC 1.90 L, MCV 109.2 H, MCH 36.7 H, RDW 25.4 H , MPV 11.2 H, Segmented Neutrophils 45, Band Neutrophils 12 H, Lymphocytes 33, Monocytes 7, Eosinophils 2, Basophils 1, Nucleated RBCs 1 H, Platelet Estimate ADEQUATE, Basophilic Stippling SLIGHT, Anisocytosis 1+, Macrocytic Cells 1+, Stomatocytes FEW, Elliptocytes 1+, PUBS MCHC 33.6 11/25/17 1830: Iron 146, TIBC 387, Ferritin 29.3, Troponin I 0.02, Vitamin B12 358, Folate 3.5 11/25/17 1812: Urinalysis LIGHT H, Urine Color YEL, Urine Clarity CLDY H, Urine pH 5.0, Ur Specific [place] 1.010, Urine Protein 100 H, Urine Ketones NEG, Urine Nitrite NEG, Urine Bilirubin NEG, Urine Urobilinogen 0.2, Ur Leukocyte Esterase MOD H, Ur Microscopic SEDIMENT EXAMINED, Urine RBC 5-10 H, Urine WBC > 75 H, Ur Epithelial Cells MOD H, Urine Bacteria MOD H, Urine Hemoglobin MOD H, Urine Glucose NEG 11/25/17 1425: PT 12.0, INR 1.14, APTT 25 11/25/17 1345: Anion Gap 7, Estimated GFR > 60, BUN/Creatinine Ratio 17.5, Glucose 103 H, Lactic Acid 1.2, Calcium 8.8, Total Bilirubin 0.6, AST 15, ALT 27, Alkaline Phosphatase 87, Troponin I < 0.01, Total Protein 6.3, Albumin 3.4 L, Globulin 2.9, Albumin/Globulin Ratio 1.2, Lipase 62 11/25/17 1315: CBC w Diff MAN DIFF ORDERED, RBC 1.75 L, MCV 114.2 H, MCH 38.5 H, RDW 18.4 H , MPV 11.6 H, Segmented Neutrophils 48, Band Neutrophils 12 H, Lymphocytes 34, Monocytes 6, Platelet Estimate VERIFIED BY SMEAR, Anisocytosis 1+, Ovalocytes 1+ , PUBS MCHC 33.8 Diagnostic Data Other Results Abdomen/pelvis CT; IMPRESSION: 1. Right lower quadrant parastomal hernia. No definite evidence of bowel obstruction. 2. Redemonstrated catheter coursing through a presacral collection suspected to be composed of complex fluid. Overall collection size is similar to 12/09/2016, though there is now decreased gas within the collection compared to prior. Assessment/Plan Assessment: Mrs. Payton is a 72 yo lady with a history of hypertension, osteoarthritis, chronic back pain, rectal cancer s/p post neoadjuvant chemoradiation therapy followed by low anterior resection with diverting loop ileostomy and ileostomy reversal 10 years ago, she had perirectal abscess last year at october with a reinsertion of ileostomy bag, she came in to emergency department with a c/o of right sided abdominal pain started today at 4 am. Admitted for acute blood loss anemia Assessment: #Acute blood loss anemia #SOB/weakness 2/2 to anemia #Hx. of perirectal abcess s/p ileostomy, and rectal tube #Hx. of colorectal cancer s/p resection #Hx. of HTN not on medication currently Plan: -Will admitt the patient to general medicine floor -She recieved 1 unit PRBC, will check post-transfusion cbc at 12 midnight -She is NPO for possible scope at am -Patient refused to be seen by , I called the service and a consult was placed with per patient request, However, I called since he is oncall today to ask about prep for possible endoscopy/colonoscopy tomorrow by and he notified us that is away till next week and also patient doesn't want either. Patient was seen at ED by her surgeon, he did her colonoscopy last december, we placed an official consult with her colorectal surgeon for am, will call at am, as patient agreed to be seen by him after discussion with attending -Monitor for any bleeding -Will continue her home medications -Pain management with iv diluded -will hydrate with IV fluid -Anemia workup: ferritin, iron, TIBC, b12, folate dvt ppx. ALPS Full code As Ranked By This Provider Problem List: 1. Symptomatic anemia Core Measures/Misc (08/16) Acute Coronary Syndrome ACS Diagnosis: No Congestive Heart Failure Congestive Heart Failure Diagnosis No Cerebrovascular Accident CVA/TIA Diagnosis: No VTE (View Protocol) VTE Risk Factors Age>40 No Mechanical VTE Prophylaxis d/t N/A MechProphylax Ordered No VTE Pharm Prophylaxis d/t Bleeding (Active) Sepsis (View protocol) Sepsis Present: No Domenic CONNER, [facility] 11/25/173: Attending MD Review Statement Attending Statement Attending MD Statement: examined this patient, discuss w/resident/PA/LEGAL SUPPORT MANAGER, agreed w/resident/PA/LEGAL SUPPORT MANAGER, discussed with family, reviewed images, amended to note Attending Assessment/Plan: 72 yo F with h/o HTN, CBP, asthma/ COPD, GERD, rectal cancer s/p neoadjuvant chemoradiation therapy followed by LAR with diverting loop ileostomy and ileostomy reversal (2006), subsequently developed rectovaginal fistula with anastomotic breakdown and perirectal abscess (Oct 2016) requiring multiple perineal washouts and diverting loop ileostomy, complicated by acute blood loss anemia requiring PRBC, being followed by Dr. Noyola, is here for evaluation of right lower quadrant abdominal pain. Patient reports 1 day prior she developed right lower back pain, which then subsided overnight. This morning she developed right lower quadrant pain around the ileostomy and right upper quadrant pain which is severe, nonradiating and throbbing in nature. She did not find relief with home dose of oxycontin and dilaudid, hence she came to ER. She c/o nausea, but no vomiting. She continues to have regular loose BM's through ileostomy. Of note, patient has a seton drain in her rectum to prevent recurrent abscess formation. At baseline, she has pinkish (not BRBPR) mucousy discharge from the rectum. She was treated with a course of antibiotics in Aug 2017 for persistent drainage from the rectal area for concerns of recurrent infection. She also reports 1 month history of fatigue, exertional dyspnea which has gradually worsened. She tried using her inhalers without reliefDenies chest pain , palpitations. She also reports taking Aleve (~ 400 mg daily) everyday for her chronic pain about 3 weeks ago. At one point, she noticed bright red blood with ?clot while doing Sitz bath and since then she stopped taking NSAIDs. She did take prilosec for a short while. She denies black stools or BRB from the ileostomy. She denies heartburn or hematemesis. She denies urinary symptoms. Last colonoscopy (January 2017): Breakdown of the rectal anastomosis with colovaginal fistula with diversion colitis. Pathology: fragments of granulation tissue with acute and chronic inflammation and surface erosion. Of note, patient was had incisional ventral hernia with incarcerated small bowel and partial SBO that was repaired in Nov [address] Noyola. Vitals stable. Exam: AAO, in mild distress due to pain, pallor+, no icterus, Neck supple, MMM, Chest b/l clear, Heart S1S2 regular, Abd soft, right sided ileostomy site CDI, tenderness noted to the right side of the ileostomy and right upper quadrant, BS+. Stool from ileostomy is heme positive. Rectal exam done by ER: rectal drain seton is place, no obvious blood per rectum, minimal clear pink discharge. Patient had discomfort on rectal exam. LE: trace edema. No CVA tenderness. Labs: WBC 2.9, H/H 6.8/20 (baseline 8-10/ 25-30), macrocytosis, bands 12, lactic acid 1.2, trop neg. UA cloudy, with proteinuria, mod leukocyte esterase, WBC> 75 , RBC 5-10, moderate epithelial cells. CT abd/pelvis: right lower quadrant parastomal hernia, no evidence of bowel obstruction. Catheter coursing through presacral collection, size similar to previous CT. EKG: SR with nonspecific T wave changes. Assessment and plan 1. Right sided abdominal pain of unclear etiology 2. Symptomatic anemia 3. Acute anemia of blood loss 4. History of rectal cancer with complications 5. Leukopenia with bandemia - chronic 6. Asymptomatic bacteriuria - Admit to general medicine - Type and cross match, transfuse to keep Hb > 7.0 - Guaiac all stools, check iron studies, folic acid, B12. - Check retic count and LDH although hemolysis seems less likely - GI consult (Dr. Singh in AM) - Colorectal surgeon Dr. Noyola aware, will see in AM. She reviewed CT images and I talked to her personally, she does not see any acute indication for surgery at this point. She suggests GI consult and EGD/ colonoscopy by them. - Gentle IV hydration. - NPO after midnight - Continue TRC nebs, symbicort. - Continue PO PPI - Pain management with tylenol, oxycontin and IV dilaudid. - If febrile, will panculture, repeat UA and obtain CXR. DVT ppx Alps. Full code.
--- NOTE | 2017-11-25 20:44 | Admission Certification ---
Admission Certification Certification Statement - As attending physician, I certify that at the time of - admission, based on clinical presentation, severity of - symptoms, need for further diagnostic testing and - therapeutic interventions, and risk of adverse outcomes - without in-hospital treatment, in my clinical assessment, - this patient requires an acute hospital stay for a minimum - of two nights or longer. I have also considered psychsocial - factors such as support system, advanced age, financial - issues, cognitive issues, and failed out-patient treatments, - past re-admission history, safety of patient, and lack of - compliance as applicable. Specific rationale supporting this admission is: Symptomatic anemia, acute on chronic blood loss anemia.
[2017-11-26 01:15] LABS: HEMATOCRIT 20.7 % (37-47); RBC DISTRIBUTION WIDTH 25.4 % (11.5-14.5); WHITE BLOOD CELL COUNT 3.4 /CUMM (4.8-10.8)
[2017-11-26 02:08] LABS: MEAN CORPUSCULAR HGB 36.7 PG (27.0-31.0); MEAN CORPUSCULAR HGB CONC 33.6 G/DL (33.0-37.0); MEAN CORPUSCULAR VOLUME 109.2 FL (81.0-99.0); MEAN PLATELET VOLUME 11.2 FL (7.4-10.4); PLATELET COUNT 219 /CUMM (130-400)
--- NOTE | 2017-11-26 07:30 | PN- Housestaff ---
See Addendum Subjective Follow-up For: #Acute blood loss anemia #SOB/weakness 2/2 to anemia #Hx. of perirectal abcess s/p ileostomy, and rectal tube #Hx. of colorectal cancer s/p resection #Hx. of HTN not on medication currently Subjective: - No overnight events. Patient still complaining Right ab pain fluctuating with breathing, rated 8/10 sometimes with breathing, but generally tolerable. Patient was breathing under 2L NC. Patient had 2U PRBC transfused overnight. - Patient denied fever/CP/palpitation currently. - Patient was placed in NPO pending possible GI procedures in the AM. Patient acknowledged that Dr. Oliver Singh would see her rather than Dr. Gonzales. - Patient denied any urinary or bowel movement discomforts. - Patient had no other specific complaint. Review of Systems Constitutional: Reports: see HPI. Objective Last 24 Hrs of Vital Signs/I&O Vital Signs Date Time Temp Pulse Resp B/P B/P Pulse O2 O2 Flow FiO2 Mean Ox Delivery Rate 11/26 0731 98.7 75 18 118/83 94 Nasal 2.0L Cannula 11/26 0000 Nasal 2.0L Cannula 11/25 1853 96.1 83 18 168/72 96 Nasal 2.0L Cannula 11/25 1519 91 16 132/87 95 Room Air 11/25 1319 Room Air Room Air 11/25 1301 97.8 86 20 144/66 95 Room Air Intake & Output 11/26 1600 11/26 0800 11/26 0000 Intake Total 1300 225 Output Total Balance 1300 225 Intake, Blood 700 Product Intake, IV 600 225 Patient 104.326 kg Weight Physical Exam General Appearance: Alert, Oriented X3, Cooperative, Mild Distress Cardiovascular: Regular Rate Lungs: Clear to Auscultation, Normal Air Movement Neurological: Normal Speech Extremities: Normal Pulses, +1 edema b/l chronic Current Medications: Current Medications Sig/Dontae Start time Last Medication Dose Route Stop Time Status Admin Acetaminophen 650 MG Q6P PRN 11/25 2130 CAN PO Acetaminophen 650 MG Q6P PRN 11/25 2045 AC 11/26 PO 0319 Albuterol Sulfate 2 PUF Q6P PRN 11/25 1915 AC INH Budesonide/ 2 PUF BID 11/25 2200 AC 11/26 Formoterol Fumarate INH 1021 Hydromorphone HCl 1 MG Q6P PRN 12/27 2130 DC IV Hydromorphone HCl 1 MG Q4P PRN 11/25 2045 AC 11/26 IV 0803 Hydromorphone HCl 1 MG ONCE ONE 11/25 1900 DC 11/25 IV 11/25 1901 1941 Hydromorphone HCl 0 .STK-MED ONE 11/25 1628 DC .ROUTE Hydromorphone HCl 1 MG ONCE ONE 11/25 1615 DC 11/25 IV 11/25 1616 1630 Hydromorphone HCl 0 .STK-MED ONE 11/25 1353 DC .ROUTE Hydromorphone HCl 1 MG ONCE ONE 11/25 1345 DC 11/25 IV 11/25 1346 1355 Omeprazole 20 MG DAILY AC 11/25 2045 AC 11/26 PO 0536 Ondansetron HCl 4 MG Q6P PRN 11/25 2045 AC 11/26 IV 1025 Ondansetron HCl 0 .STK-MED ONE 11/25 1352 DC .ROUTE Ondansetron HCl 4 MG ONCE ONE 11/25 1345 DC 11/25 IV 11/25 1346 1355 Oxycodone HCl 20 MG Q12 11/25 2200 AC 11/26 PO 1021 Sodium Chloride 1,000 ML Q13H 11/25 2030 DC 11/25 IV 11/26 0929 2144 Zolpidem Tartrate 5 MG AT BEDTIME NEED.. 11/25 2200 AC PO Last 24 Hrs of Lab/Dar Results Last 24 Hrs of Labs/Mics: Laboratory Tests 11/26/17 0640: Sodium Pending, Potassium Pending, Chloride Pending, Carbon Dioxide Pending, Anion Gap Pending, BUN Pending, Creatinine Pending, BUN/Creatinine Ratio Pending , CBC w Diff Pending, WBC Pending, RBC Pending, Hgb Pending, Hct Pending, MCV Pending, MCH Pending, RDW Pending, Plt Count Pending, MPV Pending, Gran % Pending, Lymphocytes % Pending, Monocytes % Pending, Eosinophils % Pending, Basophils % Pending, Absolute Granulocytes Pending, Absolute Lymphocytes Pending , Absolute Monocytes Pending, Absolute Eosinophils Pending, Absolute Basophils Pending, PUBS MCHC Pending 11/26/17 0030: CBC w Diff MAN DIFF ORDERED, RBC 1.90 L, MCV 109.2 H, MCH 36.7 H, RDW 25.4 H , MPV 11.2 H, Segmented Neutrophils 45, Band Neutrophils 12 H, Lymphocytes 33, Monocytes 7, Eosinophils 2, Basophils 1, Nucleated RBCs 1 H, Platelet Estimate ADEQUATE, Basophilic Stippling SLIGHT, Anisocytosis 1+, Macrocytic Cells 1+, Stomatocytes FEW, Elliptocytes 1+, PUBS MCHC 33.6 11/25/17 1830: Iron 146, TIBC 387, Ferritin 29.3, Troponin I 0.02, Vitamin B12 358, Folate 3.5 11/25/17 181: Urinalysis LIGHT H, Urine Color YEL, Urine Clarity CLDY H, Urine pH 5.0, Ur Specific [place] 1.010, Urine Protein 100 H, Urine Ketones NEG, Urine Nitrite NEG, Urine Bilirubin NEG, Urine Urobilinogen 0.2, Ur Leukocyte Esterase MOD H, Ur Microscopic SEDIMENT EXAMINED, Urine RBC 5-10 H, Urine WBC > 75 H, Ur Epithelial Cells MOD H, Urine Bacteria MOD H, Urine Hemoglobin MOD H, Urine Glucose NEG 11/25/17 1425: PT 12.0, INR 1.14, APTT 25 11/25/17 1345: Anion Gap 7, Estimated GFR > 60, BUN/Creatinine Ratio 17.5, Glucose 103 H, Lactic Acid 1.2, Calcium 8.8, Total Bilirubin 0.6, AST 15, ALT 27, Alkaline Phosphatase 87, Troponin I < 0.01, Total Protein 6.3, Albumin 3.4 L, Globulin 2.9, Albumin/Globulin Ratio 1.2, Lipase 62 11/25/17 1315: CBC w Diff MAN DIFF ORDERED, RBC 1.75 L, MCV 114.2 H, MCH 38.5 H, RDW 18.4 H , MPV 11.6 H, Segmented Neutrophils 48, Band Neutrophils 12 H, Lymphocytes 34, Monocytes 6, Platelet Estimate VERIFIED BY SMEAR, Anisocytosis 1+, Ovalocytes 1+ , PUBS MCHC 33.8 Assessment/Plan Assessment: Ms. Beal is a 72 yo lady with a history of hypertension, osteoarthritis, chronic back pain, rectal cancer s/p post neoadjuvant chemoradiation therapy followed by low anterior resection with diverting loop ileostomy and ileostomy reversal 10 years ago, she had perirectal abscess last year at october with a reinsertion of ileostomy bag, she came in to emergency department with a c/o of right sided abdominal pain started today at 4 am. Admitted for acute blood loss anemia Assessment: #Acute blood loss anemia #SOB/weakness 2/2 to anemia #Hx. of perirectal abcess s/p ileostomy, and rectal tube #Hx. of colorectal cancer s/p resection #Hx. of HTN not on medication currently Plan: -She recieved 2 unit PRBC, Hgb on latest lab was 7.0. -NPO for possible scope at am -Patient agreed to see Dr. Singh. Pending Dr. Singh for EGD/Colonoscopy. -Colonrectal surgeon would not want to proceed with any procedure for now. -Monitor for any bleeding -Will continue her home medications -Pain management with iv Dilaudid -Continue IVF hydration at 75cc/hr -Anemia workup: ferritin, iron, TIBC, b12, folate all WNL dvt ppx. ALPS NPO for now Full code Problem List: 1. Symptomatic anemia 2. Perirectal abscess 3. Asymptomatic bacteriuria 4. Bandemia 5. Leukopenia Pain Ratin Pain Location: Right quadrant Ab Pain Pain Goal: Pain 4 or less Pain Plan: see AP Tomorrow's Labs & Rationales: CBC/BEP
[2017-11-26 07:31] VITALS: BP 118/83
[2017-11-26 09:49] LABS: ABSOLUTE BASOPHIL COUNT 0 /CUMM (0.0-0.2); ABSOLUTE EOSINOPHIL COUNT 0.1 /CUMM (0.0-0.7); ABSOLUTE GRANULOCYTE CT 2.1 /CUMM (1.4-6.5); ABSOLUTE LYMPH COUNT 0.8 /CUMM (1.2-3.4); ABSOLUTE MONOCYTE COUNT 0.1 /CUMM (0.10-0.60); BASOPHIL % 0.8 % (0.0-2.0); EOSINOPHIL % 2.2 % (0-5); GRANULOCYTE % 69.6 % (42.2-75.2); HEMATOCRIT 22.9 % (37-47); MEAN CORPUSCULAR HGB 35.9 PG (27.0-31.0); MEAN CORPUSCULAR HGB CONC 33.7 G/DL (33.0-37.0); MEAN CORPUSCULAR VOLUME 106.5 FL (81.0-99.0); MEAN PLATELET VOLUME 10.7 FL (7.4-10.4); PLATELET COUNT 205 /CUMM (130-400); RBC DISTRIBUTION WIDTH 28.4 % (11.5-14.5); RED BLOOD CELL CT 2.15 /CUMM (4.20-5.40)
--- NOTE | 2017-11-26 12:14 | Cons- General Surgery ---
General Information and HPI Consulting Request Date of Consult: 11/25/17 Requested By: Domenic CONNER,Sukhdev Reason for Consult: abdominal pain Source of Information: patient, family, EMS Exam Limitations: no limitations History of Present Illness: Patient is a well known to me 72-year-old woman with a history of rectal cancer (s/p neoadjuvant chemoradiation followed by LAR with diverting loop ileostomy, then ileostomy reversal) 12 years ago. 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 Patient required extensive debridement, multiple seton placements, and diverting loop ileostomy for infection control. During her postoperative period, she had an incarcerated ventral hernia that required surgical repair with mesh. She spent a long time in the rehabilitation recuperating. Patient was seen in the office on multiple occasions, her stoma was functioning well, and all perianal infection had resolved. Patient was not interested in any additional surgical interventions at that time. She developed severe right lower quadrant/flank abdominal pain yesterday morning and came to [facility] for further evaluation. Her stoma remained functional, she had some nausea, but denied emesis. She has occasional mucous pink discharge from the rectum. In the ER her stoma output was guaiac positive and she also had severe anemia. Allergies/Medications Allergies: Coded Allergies: aspirin (Intermediate, GI UPSET 11/23/16) gluten (Mild, GI UPSET 12/09/16) lactase (From DAIRY AID) (Mild, LACTOSE INTOLERANT 12/09/16) Home Med List: Albuterol Sulfate (Proair Hfa) 90 MCG HFA.AER.AD 2 PUF INH Q6H PRN RESPIRATORY (Reported) Budesonide/Formoterol Fumarate (Symbicort 160-4.5 Mcg Inhaler) 160 MCG-4.5 MCG/ ACTUATION HFA.AER.AD 2 PUF INH BID RESPIRATORY (Reported) Hydromorphone HCl 4 MG TABLET 1 TAB PO Q6H PRN PAIN (Reported) Ipratropium/Albuterol Sulfate (Combivent Respimat Inhal [place]) 20 MCG-100 MCG/ ACTUATION MIST.INHAL 1 PUFF INH 4XDAILY RESP. (Reported) Oxycodone HCl (Oxycontin) 20 MG TAB.ER.12H 1 TAB PO Q12H PAIN (Reported) Zolpidem Tartrate (Ambien) 5 MG TABLET 1 TAB PO QHS PRN PAIN (Reported) Current Medications: Current Medications Sig/Dontae Start time Last Medication Dose Route Stop Time Status Admin Acetaminophen 650 MG .STK-MED ONE 11/26 0319 DC PO 11/26 0320 Acetaminophen 650 MG Q6P PRN 11/25 2130 CAN PO Acetaminophen 650 MG Q6P PRN 11/25 204 AC 11/26 PO 1129 Albuterol Sulfate 2 PUF Q6P PRN 11/25 191 AC INH Budesonide/ 2 PUF BID 11/25 2200 AC 11/26 Formoterol Fumarate INH 1021 Hydromorphone HCl 1 MG Q6P PRN 11/25 213 DC IV Hydromorphone HCl 1 MG Q4P PRN 11/25 2045 AC 11/26 IV 1207 Hydromorphone HCl 1 MG ONCE ONE 11/25 1900 DC 11/25 IV 11/25 1901 1941 Hydromorphone HCl 0 .STK-MED ONE 11/25 1628 DC .ROUTE Hydromorphone HCl 1 MG ONCE ONE 11/25 1615 DC 11/25 IV 11/25 1616 1630 Hydromorphone HCl 0 .STK-MED ONE 11/25 1353 DC .ROUTE Hydromorphone HCl 1 MG ONCE ONE 11/25 1345 DC 11/25 IV 11/25 1346 1355 Omeprazole 20 MG DAILY AC 11/25 2045 AC 11/26 PO 0536 Ondansetron HCl 4 MG Q6P PRN 11/25 204 AC 11/26 IV 1025 Ondansetron HCl 0 .STK-MED ONE 11/25 1352 DC .ROUTE Ondansetron HCl 4 MG ONCE ONE 11/25 1345 DC 11/25 IV 11/25 1346 1355 Oxycodone HCl 20 MG Q12 11/25 2200 AC 11/26 PO 1021 Sodium Chloride 1,000 ML Q13H 11/26 1115 AC 11/26 IV 11/27 0014 1122 Sodium Chloride 1,000 ML Q13H 11/25 2030 DC 11/25 IV 11/26 0929 2144 Zolpidem Tartrate 5 MG AT BEDTIME NEED.. 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 Home Who Do You Live With? spouse Services at Home: None Smoking Status: Former Smoker ETOH Use: occasional use Illicit Drug Use: denies illicit drug use Functional Ability ADLs Independent: dressing, eating, toileting, bathing. Ambulation: independent IADLs Independent: shopping, housework, finances, food prep, telephone, transportation , medication admin. Review of Systems Review of Systems Constitutional: Reports: malaise, weakness. EENTM: Denies: blurred vision, double vision, ear discharge, ear pain, epistaxis. Cardiovascular: Denies: chest pain, palpitations, syncope. Respiratory: Denies: cough, hemoptysis, sputum production. GI: Reports: abdominal pain, nausea. Denies: constipation, distention, vomiting. Genitourinary: Denies: hematuria, pain. Musculoskeletal: Denies: gout, joint swelling, neck pain. Skin: Denies: cysts, change in skin color, jaundice. Neurological/Psychological: Denies: ataxia, cognitive dysfunction, dementia, headache, numbness. Hematologic/Endocrine: Reports: bleeding. Denies: bruising, polyuria. Immunologic/Allergic: Denies: splenectomy, HIV/AIDS. Exam & Diagnostic Data Vital Signs and I&O Vital Signs Date Time Temp Pulse Resp B/P B/P Pulse O2 O2 Flow FiO2 Mean Ox Delivery Rate 11/26 1049 Nasal 2.0L Cannula 11/26 0731 98.7 75 18 118/83 94 Nasal 2.0L Cannula 11/26 0000 Nasal 2.0L Cannula 11/25 1853 96.1 83 18 168/72 96 Nasal 2.0L Cannula 11/25 1519 91 16 132/87 95 Room Air 11/25 1319 Room Air Room Air 11/25 1301 97.8 86 20 144/66 95 Room Air Intake & Output 11/26 1600 11/26 0800 11/26 0000 11/25 1600 11/25 0800 11/25 0000 Intake Total 1300 225 0 Output Total Balance 1300 225 0 Intake, Blood 700 Product Intake, IV 600 225 Intake, Oral 0 Patient 230 lb 220 lb Weight Physical Exam General Appearance: well developed/nourished, alert, awake Head: atraumatic, normal appearance Eyes: Bilateral: PERRL, EOMI. Ears, Nose, Throat: hearing grossly normal Neck: supple, full range of motion Respiratory: chest non-tender, no respiratory distress, quiet respiration Cardiovascular: regular rate/rhythm Gastrointestinal: soft, tenderness (RLQ lateral to stoma tendernes) Rectal: setons in place, no evidence of infection, no blood in the rectal vault Back: normal range of motion Extremities: normal range of motion, no edema Neurologic/Psych: awake, alert, oriented x 3 Cranial Nerves: normal hearing, normal speech, PERRL Skin: pallor Last 24 Hours of Labs: Laboratory Tests 11/26 11/26 0640 0030 Chemistry Sodium (137 - 145 mmol/L) 142 Potassium (3.5 - 5.1 mmol/L) 4.3 Chloride (98 - 107 mmol/L) 109 H Carbon Dioxide (22 - 30 mmol/L) 24 Anion Gap (5 - 16) 9 BUN (7 - 17 mg/dL) 12 Creatinine (0.5 - 1.0 mg/dL) 0.7 Estimated GFR (>60 ml/min) > 60 BUN/Creatinine Ratio (7 - 25 %) 17.1 Hematology CBC w Diff MAN DIFF ORDERED MAN DIFF ORDERED WBC (4.8 - 10.8 /CUMM) 3.0 L 3.4 L RBC (4.20 - 5.40 /CUMM) 2.15 L 1.90 L Hgb (12.0 - 16.0 G/DL) 7.7 L 7.0 *L Hct (37 - 47 %) 22.9 L 20.7 L MCV (81.0 - 99.0 FL) 106.5 H 109.2 H MCH (27.0 - 31.0 PG) 35.9 H 36.7 H RDW (11.5 - 14.5 %) 28.4 H 25.4 H Plt Count (130 - 400 /CUMM) 205 219 MPV (7.4 - 10.4 FL) 10.7 H 11.2 H Gran % (42.2 - 75.2 %) 69.6 Lymphocytes % (20.5 - 51.1 %) 25.7 Monocytes % (1.7 - 9.3 %) 1.7 Eosinophils % (0 - 5 %) 2.2 Basophils % (0.0 - 2.0 %) 0.8 Absolute Granulocytes (1.4 - 6.5 /CUMM) 2.1 Segmented Neutrophils (42.2 - 75.2 %) 29 L 45 Band Neutrophils (0.0 - 5.0 %) 28 H 12 H Absolute Lymphocytes (1.2 - 3.4 /CUMM) 0.8 L Lymphocytes (20.5 - 51.1 %) 37 33 Monocytes (1.7 - 9.3 %) 3 7 Absolute Monocytes (0.10 - 0.60 /CUMM) 0.1 Eosinophils (0 - 5.0 %) 3 2 Absolute Eosinophils (0.0 - 0.7 /CUMM) 0.1 Basophils (0.0 - 2.0 %) 1 Absolute Basophils (0.0 - 0.2 /CUMM) 0 Nucleated RBCs (0.0 - 0.0 /100WBC) 1 H 1 H Platelet Estimate (ADEQUATE) ADEQUATE ADEQUATE Hypochromic-Microcytic 1+ Poikilocytosis 2+ Basophilic Stippling SLIGHT Anisocytosis 2+ 1+ Macrocytic Cells 1+ Ovalocytes 1+ Stomatocytes FEW Elliptocytes 1+ PUBS MCHC (33.0 - 37.0 G/DL) 33.7 33.6 11/25 11/25 11/25 11/25 1830 1812 1425 1345 Chemistry Sodium (137 - 145 mmol/L) 141 Potassium (3.5 - 5.1 mmol/L) 4.7 Chloride (98 - 107 mmol/L) 108 H Carbon Dioxide (22 - 30 mmol/L) 26 Anion Gap (5 - 16) 7 BUN (7 - 17 mg/dL) 14 Creatinine (0.5 - 1.0 mg/dL) 0.8 Estimated GFR (>60 ml/min) > 60 BUN/Creatinine Ratio (7 - 25 %) 17.5 Glucose (65 - 99 mg/dL) 103 H Lactic Acid (0.7 - 2.1 mmol/L) 1.2 Calcium (8.4 - 10.2 mg/dL) 8.8 Iron (37 - 170 ug/dL) 146 TIBC (265 - 497 ug/dL) 387 Ferritin (11.1 - 264 ng/mL) 29.3 Total Bilirubin (0.2 - 1.3 mg/dL) 0.6 AST (14 - 36 U/L) 15 ALT (9 - 52 U/L) 27 Alkaline Phosphatase (<127 U/L) 87 Troponin I (< 0.11 ng/ml) 0.02 < 0.01 Total Protein (6.3 - 8.2 g/dL) 6.3 Albumin (3.5 - 5.0 g/dL) 3.4 L Globulin (1.9 - 4.2 gm/dL) 2.9 Albumin/Globulin Ratio (1.1 - 2.2 %) 1.2 Lipase (23 - 300 U/L) 62 Vitamin B12 (239 - 931 pg/mL) 358 Folate (2.76 - 20.0 ng/mL) 3.5 Coagulation PT (9.4 - 12.5 SEC) 12.0 INR (0.90 - 1.19) 1.14 APTT (25 - 37 SEC) 25 Urines Urinalysis LIGHT H Urine Color (YEL,AMB,STR) YEL Urine Clarity (CLEAR) CLDY H Urine pH (5.0 - 8.0) 5.0 Ur Specific [place] (1.001 - 1.035) 1.010 Urine Protein (NEG,<30 MG/DL) 100 H Urine Ketones (NEG) NEG Urine Nitrite (NEG) NEG Urine Bilirubin (NEG) NEG Urine Urobilinogen (0.1 - 1.0 EU/dl) 0.2 Ur Leukocyte Esterase (NEG) MOD H Ur Microscopic SEDIMENT EXAMINED Urine RBC (0 - 5 /HPF) 5-10 H Urine WBC (0 - 2 /HPF) > 75 H Ur Epithelial Cells (NONE,FEW) MOD H Urine Bacteria (NEG/NONE) MOD H Urine Hemoglobin (NEG) MOD H Urine Glucose (N MG/DL) NEG 11/25 1315 Hematology CBC w Diff MAN DIFF ORDERED WBC (4.8 - 10.8 /CUMM) 2.9 L RBC (4.20 - 5.40 /CUMM) 1.75 L Hgb (12.0 - 16.0 G/DL) 6.8 *L Hct (37 - 47 %) 20.0 L MCV (81.0 - 99.0 FL) 114.2 H MCH (27.0 - 31.0 PG) 38.5 H RDW (11.5 - 14.5 %) 18.4 H Plt Count (130 - 400 /CUMM) 275 MPV (7.4 - 10.4 FL) 11.6 H Segmented Neutrophils (42.2 - 75.2 %) 48 Band Neutrophils (0.0 - 5.0 %) 12 H Lymphocytes (20.5 - 51.1 %) 34 Monocytes (1.7 - 9.3 %) 6 Platelet Estimate (ADEQUATE) VERIFIED BY SMEAR Anisocytosis 1+ Ovalocytes 1+ PUBS MCHC (33.0 - 37.0 G/DL) 33.8 Imaging Results: CT A/P (11/26/17): IMPRESSION: 1. Right lower quadrant parastomal hernia. No definite evidence of bowel obstruction. 2. Redemonstrated catheter coursing through a presacral collection suspected to be composed of complex fluid. Overall collection size is similar to 12/09/2016, though there is now decreased gas within the collection compared to prior. Assessment/Plan Assessment/Plan A 72 year-old woman with remote history of rectal CA s/p neodjuvant chemoradiation and LAR with subsequent diagnosis of high rectovaginal fistula and perirectal sepsis s/p diverting loop ileostomy and seton placment for infection control presents with an acute onset of RLQ pain. There is radiologic evidence of parastomal hernia, but it is uclear whether it correlates to patient 's symptoms as there are no symptoms of obstruction. Patient is also severely anemic with guaiac positive stoma output. - No acute surgical intervention is necessary at this time - Recommend GI consult for upper and lower endoscopy - Recommend monitoring H/H and transfusing as needed - Will continue to follow. Patient may become a candidate for elective parastomal hernia repair if her symptoms persist or she develops obstruction. However, there is no plan to proceed with surgical intervention on this admission Consult Acknowledgment - Thank you for your consult request.
[2017-11-26 13:40] VITALS: BP 142/64
--- NOTE | 2017-11-26 21:49 | Cons- Gastroenterology ---
General Information and HPI Consulting Request Date of Consult: 11/26/17 Requested By: Domenic CONNER,Sukhdev Reason for Consult: Anemia Occult GI bleed Source of Information: patient, old records History of Present Illness: Status post rectal cancer, initially treated with LAR/diverting ileostomy. More recent complications of anastomosis breakdown, colovaginal fistula treated with local anorectal surgical therapy, and diverting ileostomy. The patient has occasional blood per rectum attributed to "rectal devices," and had a single episode of large blood per rectum with mucus recently. She has not noticed increased ostomy output, or red blood/black chyme. She has occasional heartburn but no dysphagia, nausea, vomiting. She had the onset of abdominal pain 2 days ago, in the right lower quadrant ileostomy. This pain is worse with movement, especially sitting up, coughing. There's been no dysuria, pneumaturia, fever, chills, sweats. Allergies/Medications Allergies: Coded Allergies: aspirin (Intermediate, GI UPSET 11/23/16) gluten (Mild, GI UPSET 12/09/16) lactase (From DAIRY AID) (Mild, LACTOSE INTOLERANT 12/09/16) Home Med List: Albuterol Sulfate (Proair Hfa) 90 MCG HFA.AER.AD 2 PUF INH Q6H PRN RESPIRATORY (Reported) Budesonide/Formoterol Fumarate (Symbicort 160-4.5 Mcg Inhaler) 160 MCG-4.5 MCG/ ACTUATION HFA.AER.AD 2 PUF INH BID RESPIRATORY (Reported) Hydromorphone HCl 4 MG TABLET 1 TAB PO Q6H PRN PAIN (Reported) Ipratropium/Albuterol Sulfate (Combivent Respimat Inhal [place]) 20 MCG-100 MCG/ ACTUATION MIST.INHAL 1 PUFF INH 4XDAILY RESP. (Reported) Oxycodone HCl (Oxycontin) 20 MG TAB.ER.12H 1 TAB PO Q12H PAIN (Reported) Zolpidem Tartrate (Ambien) 5 MG TABLET 1 TAB PO QHS PRN PAIN (Reported) Current Medications: Current Medications Sig/Dontae Start time Last Medication Dose Route Stop Time Status Admin Acetaminophen 650 MG .STK-MED ONE 11/26 1128 DC PO 11/26 112 Acetaminophen 650 MG .STK-MED ONE 12/28 0319 DC PO 11/26 0320 Acetaminophen 650 MG Q6P PRN 11/25 2045 AC 11/26 PO 1129 Albuterol Sulfate 2 PUF Q6P PRN 11/25 1915 AC INH Budesonide/ 2 PUF BID 11/25 2200 AC 11/26 Formoterol Fumarate INH 1021 Hydromorphone HCl 2 MG Q4P PRN 11/26 1530 AC 11/26 IV 2056 Hydromorphone HCl 4 MG Q6P PRN 11/26 1515 AC PO Hydromorphone HCl 1 MG Q4P PRN 11/25 2045 DC 11/26 IV 1207 Omeprazole 20 MG DAILY AC 11/25 204 AC 11/26 PO 0536 Ondansetron HCl 4 MG Q6P PRN 11/25 204 AC 11/26 IV 1025 Oxycodone HCl 20 MG Q12 11/25 2200 AC 11/26 PO 1021 Polyethylene Glycol 1 GAL AT BEDTIME 11/26 2200 AC PO Sodium Chloride 1,000 ML Q13H 11/26 1115 AC 11/26 IV 11/27 0014 1122 Sodium Chloride 1,000 ML Q13H 11/25 2030 DC 11/25 IV 11/26 0929 2144 Zolpidem Tartrate 5 MG AT BEDTIME NEED.. 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 Home Who Do You Live With? spouse Services at Home: None Smoking Status: Former Smoker ETOH Use: occasional use Illicit Drug Use: denies illicit drug use Functional Ability ADLs Independent: dressing, eating, toileting, bathing. Ambulation: independent IADLs Independent: shopping, housework, finances, food prep, telephone, transportation , medication admin. Exam & Diagnostic Data Vital Signs and I&O Vital Signs Date Time Temp Pulse Resp B/P B/P Pulse O2 O2 Flow FiO2 Mean Ox Delivery Rate 11/26 1340 98.2 74 20 142/64 91 Nasal 2.0L Cannula 11/26 1049 Nasal 2.0L Cannula 11/26 0800 94 Nasal 2.0L Cannula 11/26 0731 98.7 75 18 118/83 94 Nasal 2.0L Cannula 11/26 0000 Nasal 2.0L Cannula Intake & Output 11/26 1600 11/26 0400 11/25 1600 11/25 0400 11/24 1600 11/24 0400 Intake Total 1900 225 0 Output Total 650 Balance 1250 225 0 Intake, Blood 700 Product Intake, IV 1200 225 Intake, Oral 0 Output, Stool 250 Output, Urine 400 Patient 230 lb 220 lb Weight Physical Exam: Well-developed, well-nourished, in no apparent distress. Alert and oriented with normal cognition. Skin normal. Sclera anicteric. No oropharyngeal lesions. Neck supple without thyromegaly or mass. No adenopathy. Heart regular rhythm. Lungs clear. Abdomen is mildly obese, with pannus. Bowel sounds are present. There is tenderness inferior to the right lower quadrant stoma site. There is no mass, organomegaly. Extremities without clubbing, cyanosis or edema. Results Pertinent Lab Results: Laboratory Tests 11/26 11/26 0640 0030 Chemistry Sodium (137 - 145 mmol/L) 142 Potassium (3.5 - 5.1 mmol/L) 4.3 Chloride (98 - 107 mmol/L) 109 H Carbon Dioxide (22 - 30 mmol/L) 24 Anion Gap (5 - 16) 9 BUN (7 - 17 mg/dL) 12 Creatinine (0.5 - 1.0 mg/dL) 0.7 Estimated GFR (>60 ml/min) > 60 BUN/Creatinine Ratio (7 - 25 %) 17.1 Glucose (65 - 99 mg/dL) 91 Hematology CBC w Diff MAN DIFF ORDERED MAN DIFF ORDERED WBC (4.8 - 10.8 /CUMM) 3.0 L 3.4 L RBC (4.20 - 5.40 /CUMM) 2.15 L 1.90 L Hgb (12.0 - 16.0 G/DL) 7.7 L 7.0 *L Hct (37 - 47 %) 22.9 L 20.7 L MCV (81.0 - 99.0 FL) 106.5 H 109.2 H MCH (27.0 - 31.0 PG) 35.9 H 36.7 H RDW (11.5 - 14.5 %) 28.4 H 25.4 H Plt Count (130 - 400 /CUMM) 205 219 MPV (7.4 - 10.4 FL) 10.7 H 11.2 H Gran % (42.2 - 75.2 %) 69.6 Lymphocytes % (20.5 - 51.1 %) 25.7 Monocytes % (1.7 - 9.3 %) 1.7 Eosinophils % (0 - 5 %) 2.2 Basophils % (0.0 - 2.0 %) 0.8 Absolute Granulocytes (1.4 - 6.5 /CUMM) 2.1 Segmented Neutrophils (42.2 - 75.2 %) 29 L 45 Band Neutrophils (0.0 - 5.0 %) 28 H 12 H Absolute Lymphocytes (1.2 - 3.4 /CUMM) 0.8 L Lymphocytes (20.5 - 51.1 %) 37 33 Monocytes (1.7 - 9.3 %) 3 7 Absolute Monocytes (0.10 - 0.60 /CUMM) 0.1 Eosinophils (0 - 5.0 %) 3 2 Absolute Eosinophils (0.0 - 0.7 /CUMM) 0.1 Basophils (0.0 - 2.0 %) 1 Absolute Basophils (0.0 - 0.2 /CUMM) 0 Nucleated RBCs (0.0 - 0.0 /100WBC) 1 H 1 H Platelet Estimate (ADEQUATE) ADEQUATE ADEQUATE Hypochromic-Microcytic 1+ Poikilocytosis 2+ Basophilic Stippling SLIGHT Anisocytosis 2+ 1+ Macrocytic Cells 1+ Ovalocytes 1+ Stomatocytes FEW Elliptocytes 1+ PUBS MCHC (33.0 - 37.0 G/DL) 33.7 33.6 11/25 11/25 11/25 11/25 1830 1812 1425 1345 Chemistry Sodium (137 - 145 mmol/L) 141 Potassium (3.5 - 5.1 mmol/L) 4.7 Chloride (98 - 107 mmol/L) 108 H Carbon Dioxide (22 - 30 mmol/L) 26 Anion Gap (5 - 16) 7 BUN (7 - 17 mg/dL) 14 Creatinine (0.5 - 1.0 mg/dL) 0.8 Estimated GFR (>60 ml/min) > 60 BUN/Creatinine Ratio (7 - 25 %) 17.5 Glucose (65 - 99 mg/dL) 103 H Lactic Acid (0.7 - 2.1 mmol/L) 1.2 Calcium (8.4 - 10.2 mg/dL) 8.8 Iron (37 - 170 ug/dL) 146 TIBC (265 - 497 ug/dL) 387 Ferritin (11.1 - 264 ng/mL) 29.3 Total Bilirubin (0.2 - 1.3 mg/dL) 0.6 AST (14 - 36 U/L) 15 ALT (9 - 52 U/L) 27 Alkaline Phosphatase (<127 U/L) 87 Troponin I (< 0.11 ng/ml) 0.02 < 0.01 Total Protein (6.3 - 8.2 g/dL) 6.3 Albumin (3.5 - 5.0 g/dL) 3.4 L Globulin (1.9 - 4.2 gm/dL) 2.9 Albumin/Globulin Ratio (1.1 - 2.2 %) 1.2 Lipase (23 - 300 U/L) 62 Vitamin B12 (239 - 931 pg/mL) 358 Folate (2.76 - 20.0 ng/mL) 3.5 Coagulation PT (9.4 - 12.5 SEC) 12.0 INR (0.90 - 1.19) 1.14 APTT (25 - 37 SEC) 25 Urines Urinalysis LIGHT H Urine Color (YEL,AMB,STR) YEL Urine Clarity (CLEAR) CLDY H Urine pH (5.0 - 8.0) 5.0 Ur Specific [place] (1.001 - 1.035) 1.010 Urine Protein (NEG,<30 MG/DL) 100 H Urine Ketones (NEG) NEG Urine Nitrite (NEG) NEG Urine Bilirubin (NEG) NEG Urine Urobilinogen (0.1 - 1.0 EU/dl) 0.2 Ur Leukocyte Esterase (NEG) MOD H Ur Microscopic SEDIMENT EXAMINED Urine RBC (0 - 5 /HPF) 5-10 H Urine WBC (0 - 2 /HPF) > 75 H Ur Epithelial Cells (NONE,FEW) MOD H Urine Bacteria (NEG/NONE) MOD H Urine Hemoglobin (NEG) MOD H Urine Glucose (N MG/DL) NEG 11/25 1315 Hematology CBC w Diff MAN DIFF ORDERED WBC (4.8 - 10.8 /CUMM) 2.9 L RBC (4.20 - 5.40 /CUMM) 1.75 L Hgb (12.0 - 16.0 G/DL) 6.8 *L Hct (37 - 47 %) 20.0 L MCV (81.0 - 99.0 FL) 114.2 H MCH (27.0 - 31.0 PG) 38.5 H RDW (11.5 - 14.5 %) 18.4 H Plt Count (130 - 400 /CUMM) 275 MPV (7.4 - 10.4 FL) 11.6 H Segmented Neutrophils (42.2 - 75.2 %) 48 Band Neutrophils (0.0 - 5.0 %) 12 H Lymphocytes (20.5 - 51.1 %) 34 Monocytes (1.7 - 9.3 %) 6 Platelet Estimate (ADEQUATE) VERIFIED BY SMEAR Anisocytosis 1+ Ovalocytes 1+ PUBS MCHC (33.0 - 37.0 G/DL) 33.8 Imaging/Other Studies: CT scan of the abdomen and pelvis: IMPRESSION: 1. Right lower quadrant parastomal hernia. No definite evidence of bowel obstruction. 2. Redemonstrated catheter coursing through a presacral collection suspected to be composed of complex fluid. Overall collection size is similar to 12/09/2016, though there is now decreased gas within the collection compared to prior. Assessment/Plan Assessment/Recommendations: 1. Anemia. Likely multifactorial, including possible contribution of GI blood loss. The patient has guaiac positive the ostomy output, and blood/mucus per rectum. 2. Right lower quadrant pain/tenderness. This appears to be related to the stoma, specifically the area of a parastomal hernia. Recommendations * Check CBC daily, and transfuse as needed to maintain hemoglobin greater than 7 -8 * Clear liquid diet * EGD and ileoscopy/colonoscopy tomorrow. We will prep the colon in the morning through the efferent portion of the loop ileostomy. Please have a red rubber tube available at the bedside, and order GoLYTELY 1 gallon to be administered over 4 hours through this tube, after is inserted by colorectal surgery. Please make the patient nothing by mouth after midnight Consult Acknowledgment - Thank you for your consult request.
[2017-11-26 22:00] VITALS: BP 138/62
--- NOTE | 2017-11-27 03:36 | Event Note ---
Event Note Event Note: I was paged by the nurse to order GoLYTELY as per Dr. Singh at around 8:45 PM. I was also informed by her that Dr. Singh wanted a red rubber tube by the bedside. The nurse asked me about the red rubber tube, which i am aware and hence told her to contact the nursing head and also surgical PA to make it available at the bedside. Meanwhile I ordered GoLYTELY and told the nurse that it is through the red rubber tube. And hence I told her to find out how to order the red rubber tube by paging the surgical PA. 3 AM-I called the nurse to check on if she has ordered the red rubber tube. Apparently the nurse gave some GoLYTELY by mouth. I told her immediately to stop further GoLYTELY administration. The resident discussed with the surgical PA, and made her aware that a red rubber tube needs to be inserted for the administration of GoLytely. Resident and attending made aware.
[2017-11-27 07:26] VITALS: BP 138/60
--- NOTE | 2017-11-27 07:57 | PN- Housestaff ---
Natalie Rodriguez 11/27/17 0752: Subjective Follow-up For: #Acute blood loss anemia #SOB/weakness 2/2 to anemia #Hx. of perirectal abcess s/p ileostomy, and rectal tube #Hx. of colorectal cancer s/p resection #Hx. of HTN not on medication currently Subjective: Patient felt the adjusted pain regimen from yesterday was a bit better on pain control, however still c/o 7-8/10 throbbing pain. Patient stated that she refused to drink golytely last night for prep and was upset about it. Reassurance was given and patient acknowledged the procedures to be arranged to day regarding golytely prep through ileostomy bag and colonoscopy after prep. Review of Systems Constitutional: Reports: see HPI. Objective Last 24 Hrs of Vital Signs/I&O Vital Signs Date Time Temp Pulse Resp B/P B/P Pulse O2 O2 Flow FiO2 Mean Ox Delivery Rate 11/27 0726 97.8 91 18 138/60 92 11/27 0000 Nasal 2.0L Cannula 11/26 2200 98.4 85 19 138/62 90 Nasal 3.0L Cannula 11/26 1340 98.2 74 20 142/64 91 Nasal 2.0L Cannula 11/26 1049 Nasal 2.0L Cannula 11/26 0800 94 Nasal 2.0L Cannula Intake & Output 11/27 0800 11/27 0000 11/26 1600 Intake Total 600 Output Total 650 Balance -50 Intake, IV 600 Output, Stool 250 Output, Urine 400 Physical Exam General Appearance: Alert, Oriented X3, Cooperative, No Acute Distress Cardiovascular: Regular Rate Lungs: Clear to Auscultation, Normal Air Movement Abdomen: Red rubber tube inserted at ileostomy bag for colonoscopy prep Extremities: +1 edema chronic Current Medications: Current Medications Sig/Dontae Start time Last Medication Dose Route Stop Time Status Admin Acetaminophen 650 MG .STK-MED ONE 11/26 1128 DC PO 11/26 1129 Acetaminophen 650 MG Q6P PRN 11/25 2045 AC 11/26 PO 1129 Albuterol Sulfate 2 PUF Q6P PRN 11/25 1915 AC INH Budesonide/ 2 PUF BID 11/25 2200 AC 11/26 Formoterol Fumarate INH 2151 Hydromorphone HCl 2 MG Q4P PRN 11/26 1530 AC 11/27 IV 0502 Hydromorphone HCl 4 MG Q6P PRN 11/26 1515 AC 11/27 PO 0057 Hydromorphone HCl 1 MG Q4P PRN 11/25 2045 DC 11/26 IV 1207 Omeprazole 20 MG DAILY AC 11/25 2045 AC 11/27 PO 0502 Ondansetron HCl 4 MG Q6P PRN 11/25 2045 AC 11/26 IV 1025 Oxycodone HCl 20 MG Q12 11/25 2200 AC 11/26 PO 2151 Polyethylene Glycol 1 GAL AT BEDTIME 11/26 2200 AC 11/26 PO 2152 Sodium Chloride 1,000 ML Q13H 11/26 1115 DC 11/26 IV 11/27 0014 1122 Sodium Chloride 1,000 ML Q13H 11/25 2030 DC 11/25 IV 11/26 0929 2144 Zolpidem Tartrate 5 MG AT BEDTIME NEED.. 11/25 2200 AC PO Last 24 Hrs of Lab/Dar Results Last 24 Hrs of Labs/Mics: Laboratory Tests 11/27/17 0700: Sodium Pending, Potassium Pending, Chloride Pending, Carbon Dioxide Pending, Anion Gap Pending, BUN Pending, Creatinine Pending, BUN/Creatinine Ratio Pending , CBC w Diff Pending, WBC Pending, RBC Pending, Hgb Pending, Hct Pending, MCV Pending, MCH Pending, RDW Pending, Plt Count Pending, MPV Pending, PUBS MCHC Pending Assessment/Plan Assessment: Ms. Beal is a 72 yo lady with a history of hypertension, osteoarthritis, chronic back pain, rectal cancer s/p post neoadjuvant chemoradiation therapy followed by low anterior resection with diverting loop ileostomy and ileostomy reversal 10 years ago, she had perirectal abscess last year at october with a reinsertion of ileostomy bag, she came in to emergency department with a c/o of right sided abdominal pain started today at 4 am. Admitted for acute blood loss anemia Assessment: #Acute blood loss anemia #SOB/weakness 2/2 to anemia #Hx. of perirectal abcess s/p ileostomy, and rectal tube #Hx. of colorectal cancer s/p resection #Hx. of HTN not on medication currently Plan: -She recieved 2 unit PRBC, Hgb on latest lab was 7.7. Goal >7 -NPO w/ prep through red rubber tube through ileostomy tube for possible scope in the afternoon. -Colonrectal surgeon would not want to proceed with any surgical procedure for now. -Monitor for any bleeding -Will continue her home medications -Pain management with iv Dilaudid 2mg IV q4 + 4mg po q 6, Oxycodone 20mg q12 -Continue IVF hydration at 75cc/hr -Anemia workup: ferritin, iron, TIBC, b12, folate all WNL dvt ppx. ALPS NPO for now Full code Problem List: 1. Symptomatic anemia 2. Ventral hernia with bowel obstruction Pain Ratin Pain Location: Right quadrant abdomen, throbbing Pain Goal: Pain 7 or less Pain Plan: see AP Tomorrow's Labs & Rationales: CBC/BEP Vee Cheatham MD 11/27/17 1228: Attending MD Review Statement Attending Statement Attending MD Statement: examined this patient, discuss w/resident/PA/RAIL GRINDER, agreed w/resident/PA/RAIL GRINDER, reviewed EMR data (avail), discussed with nursing, discussed with case mgmt Attending Assessment/Plan: Patient continues to have this pain in the right lower quadrant. Appreciate GI and surgical follow-up. The plan is GoLYTELY via the ileostomy with endoscopy and colonoscopy later today for multifactorial blood loss anemia. Her crit has dropped down again and given that she is fatigued we'll give her 1 more unit of blood and follow closely.
[2017-11-27 08:30] LABS: ABSOLUTE BASOPHIL COUNT 0 /CUMM (0.0-0.2); ABSOLUTE EOSINOPHIL COUNT 0.1 /CUMM (0.0-0.7); ABSOLUTE GRANULOCYTE CT 2.1 /CUMM (1.4-6.5); ABSOLUTE LYMPH COUNT 0.6 /CUMM (1.2-3.4); ABSOLUTE MONOCYTE COUNT 0.2 /CUMM (0.10-0.60); BASOPHIL % 0.4 % (0.0-2.0); EOSINOPHIL % 2.7 % (0-5); GRANULOCYTE % 71.3 % (42.2-75.2); MEAN CORPUSCULAR HGB 36.4 PG (27.0-31.0); MEAN CORPUSCULAR VOLUME 107.1 FL (81.0-99.0); MEAN PLATELET VOLUME 11.1 FL (7.4-10.4); PLATELET COUNT 187 /CUMM (130-400); RBC DISTRIBUTION WIDTH 27.2 % (11.5-14.5)
[2017-11-27 09:02] LABS: HEMATOCRIT 21.4 % (37-47)
--- NOTE | 2017-11-27 09:30 | PN- General Surgery ---
See Addendum Subjective Subjective: pt seen w Dr Noyola. no nv, no worsening pain. Objective Vital Signs and I&Os Vital Signs Date Time Temp Pulse Resp B/P B/P Pulse O2 O2 Flow FiO2 Mean Ox Delivery Rate 11/27 0726 97.8 91 18 138/60 92 11/27 0000 Nasal 2.0L Cannula 11/26 2200 98.4 85 19 138/62 90 Nasal 3.0L Cannula 11/26 1340 98.2 74 20 142/64 91 Nasal 2.0L Cannula 11/26 1049 Nasal 2.0L Cannula Intake & Output 11/27 1600 11/27 0800 11/27 0000 11/26 1600 11/26 0800 11/26 0000 Intake Total 600 1300 225 Output Total 650 Balance -50 1300 225 Intake, Blood 700 Product Intake, IV 600 600 225 Output, Stool 250 Output, Urine 400 Patient 230 lb Weight Physical Exam: wdwn aox3, nad abd, minimal tenderenss at stoma, red, viable, slightly protruding. + brown liquid stool output. Results Last 48 Hours of Labs: Laboratory Tests 11/27 11/26 0700 0640 Chemistry Sodium (137 - 145 mmol/L) 139 142 Potassium (3.5 - 5.1 mmol/L) 4.3 4.3 Chloride (98 - 107 mmol/L) 106 109 H Carbon Dioxide (22 - 30 mmol/L) 28 24 Anion Gap (5 - 16) 5 9 BUN (7 - 17 mg/dL) 11 12 Creatinine (0.5 - 1.0 mg/dL) 0.8 0.7 Estimated GFR (>60 ml/min) > 60 > 60 BUN/Creatinine Ratio (7 - 25 %) 13.8 17.1 Glucose (65 - 99 mg/dL) 91 Hematology CBC w Diff MAN DIFF ORDERED MAN DIFF ORDERED WBC (4.8 - 10.8 /CUMM) 3.0 L 3.0 L RBC (4.20 - 5.40 /CUMM) 2.00 L 2.15 L Hgb (12.0 - 16.0 G/DL) 7.3 *L 7.7 L Hct (37 - 47 %) 21.4 L 22.9 L MCV (81.0 - 99.0 FL) 107.1 H 106.5 H MCH (27.0 - 31.0 PG) 36.4 H 35.9 H RDW (11.5 - 14.5 %) 27.2 H 28.4 H Plt Count (130 - 400 /CUMM) 187 205 MPV (7.4 - 10.4 FL) 11.1 H 10.7 H Gran % (42.2 - 75.2 %) 71.3 69.6 Lymphocytes % (20.5 - 51.1 %) 20.3 L 25.7 Monocytes % (1.7 - 9.3 %) 5.3 1.7 Eosinophils % (0 - 5 %) 2.7 2.2 Basophils % (0.0 - 2.0 %) 0.4 0.8 Absolute Granulocytes (1.4 - 6.5 /CUMM) 2.1 2.1 Segmented Neutrophils (42.2 - 75.2 %) 56 29 L Band Neutrophils (0.0 - 5.0 %) 14 H 28 H Absolute Lymphocytes (1.2 - 3.4 /CUMM) 0.6 L 0.8 L Lymphocytes (20.5 - 51.1 %) 25 37 Monocytes (1.7 - 9.3 %) 2 3 Absolute Monocytes (0.10 - 0.60 /CUMM) 0.2 0.1 Eosinophils (0 - 5.0 %) 3 Absolute Eosinophils (0.0 - 0.7 /CUMM) 0.1 0.1 Basophils (0.0 - 2.0 %) 1 Absolute Basophils (0.0 - 0.2 /CUMM) 0 0 Metamyelocytes (0.0 - 1.0 %) 2 H Nucleated RBCs (0.0 - 0.0 /100WBC) 1 H Platelet Estimate (ADEQUATE) VERIFIED BY SMEAR ADEQUATE Hypochromic-Microcytic 1+ 1+ Poikilocytosis 1+ 2+ Anisocytosis 1+ 2+ Macrocytic Cells 1+ Ovalocytes 1+ Stomatocytes 1+ PUBS MCHC (33.0 - 37.0 G/DL) 34.0 33.7 11/26 11/25 0030 1830 Chemistry Iron (37 - 170 ug/dL) 146 TIBC (265 - 497 ug/dL) 387 Ferritin (11.1 - 264 ng/mL) 29.3 Troponin I (< 0.11 ng/ml) 0.02 Vitamin B12 (239 - 931 pg/mL) 358 Folate (2.76 - 20.0 ng/mL) 3.5 Hematology CBC w Diff MAN DIFF ORDERED WBC (4.8 - 10.8 /CUMM) 3.4 L RBC (4.20 - 5.40 /CUMM) 1.90 L Hgb (12.0 - 16.0 G/DL) 7.0 *L Hct (37 - 47 %) 20.7 L MCV (81.0 - 99.0 FL) 109.2 H MCH (27.0 - 31.0 PG) 36.7 H RDW (11.5 - 14.5 %) 25.4 H Plt Count (130 - 400 /CUMM) 219 MPV (7.4 - 10.4 FL) 11.2 H Segmented Neutrophils (42.2 - 75.2 %) 45 Band Neutrophils (0.0 - 5.0 %) 12 H Lymphocytes (20.5 - 51.1 %) 33 Monocytes (1.7 - 9.3 %) 7 Eosinophils (0 - 5.0 %) 2 Basophils (0.0 - 2.0 %) 1 Nucleated RBCs (0.0 - 0.0 /100WBC) 1 H Platelet Estimate (ADEQUATE) ADEQUATE Basophilic Stippling SLIGHT Anisocytosis 1+ Macrocytic Cells 1+ Stomatocytes FEW Elliptocytes 1+ PUBS MCHC (33.0 - 37.0 G/DL) 33.6 11/25 11/25 11/25 1812 1604 1425 Chemistry Lactic Acid Cancelled Coagulation PT (9.4 - 12.5 SEC) 12.0 INR (0.90 - 1.19) 1.14 APTT (25 - 37 SEC) 25 Urines Urinalysis LIGHT H Urine Color (YEL,AMB,STR) YEL Urine Clarity (CLEAR) CLDY H Urine pH (5.0 - 8.0) 5.0 Ur Specific [place] (1.001 - 1.035) 1.010 Urine Protein (NEG,<30 MG/DL) 100 H Urine Ketones (NEG) NEG Urine Nitrite (NEG) NEG Urine Bilirubin (NEG) NEG Urine Urobilinogen (0.1 - 1.0 EU/dl) 0.2 Ur Leukocyte Esterase (NEG) MOD H Ur Microscopic SEDIMENT EXAMINED Urine RBC (0 - 5 /HPF) 5-10 H Urine WBC (0 - 2 /HPF) > 75 H Ur Epithelial Cells (NONE,FEW) MOD H Urine Bacteria (NEG/NONE) MOD H Urine Hemoglobin (NEG) MOD H Urine Glucose (N MG/DL) NEG 11/25 11/25 1345 1315 Chemistry Sodium (137 - 145 mmol/L) 141 Potassium (3.5 - 5.1 mmol/L) 4.7 Chloride (98 - 107 mmol/L) 108 H Carbon Dioxide (22 - 30 mmol/L) 26 Anion Gap (5 - 16) 7 BUN (7 - 17 mg/dL) 14 Creatinine (0.5 - 1.0 mg/dL) 0.8 Estimated GFR (>60 ml/min) > 60 BUN/Creatinine Ratio (7 - 25 %) 17.5 Glucose (65 - 99 mg/dL) 103 H Lactic Acid (0.7 - 2.1 mmol/L) 1.2 Calcium (8.4 - 10.2 mg/dL) 8.8 Total Bilirubin (0.2 - 1.3 mg/dL) 0.6 AST (14 - 36 U/L) 15 ALT (9 - 52 U/L) 27 Alkaline Phosphatase (<127 U/L) 87 Troponin I (< 0.11 ng/ml) < 0.01 Total Protein (6.3 - 8.2 g/dL) 6.3 Albumin (3.5 - 5.0 g/dL) 3.4 L Globulin (1.9 - 4.2 gm/dL) 2.9 Albumin/Globulin Ratio (1.1 - 2.2 %) 1.2 Lipase (23 - 300 U/L) 62 Hematology CBC w Diff MAN DIFF ORDERED WBC (4.8 - 10.8 /CUMM) 2.9 L RBC (4.20 - 5.40 /CUMM) 1.75 L Hgb (12.0 - 16.0 G/DL) 6.8 *L Hct (37 - 47 %) 20.0 L MCV (81.0 - 99.0 FL) 114.2 H MCH (27.0 - 31.0 PG) 38.5 H RDW (11.5 - 14.5 %) 18.4 H Plt Count (130 - 400 /CUMM) 275 MPV (7.4 - 10.4 FL) 11.6 H Segmented Neutrophils (42.2 - 75.2 %) 48 Band Neutrophils (0.0 - 5.0 %) 12 H Lymphocytes (20.5 - 51.1 %) 34 Monocytes (1.7 - 9.3 %) 6 Platelet Estimate (ADEQUATE) VERIFIED BY SMEAR Anisocytosis 1+ Ovalocytes 1+ PUBS MCHC (33.0 - 37.0 G/DL) 33.8 Assessment/Plan Assessment/Plan parastomal hernia needs bowel prep for the lower bowel through red rubber tube, 1gallon go-lyghtly per Dr Singh,. tube placed by surgery, to have endocsopic procedure today does not need oral contrast. no surgical intervention, to follow in office w Dr Noyola 1-2w.
[2017-11-27 10:37] VITALS: BP 144/58
[2017-11-27 11:07] VITALS: BP 142/60
--- NOTE | 2017-11-27 11:21 | Patient Discharge Instructions ---
Discharge Instructions General Discharge Information You were seen/treated for: #Acute blood loss anemia, multifactorial #Rectal Stricture #SOB/weakness 2/2 to anemia #Hx. of perirectal abcess s/p ileostomy, and rectal tube #Hx. of colorectal cancer s/p resection #Hx. of HTN not on medication currently Special Instructions: - Please follow up with Dr. Greene for your heart condition evaluation. - Please follow up with your colonorectal surgeon. - Please follow up with your GI specialist Dr. Singh for your colonoscopy follow up. - Please follow up with your primary care physician within 1-2 week of discharge. Inform your primary care physician of this admission to [facility]. - Continue your current medications per discharge instructions. - Please watch for these problems: Fever, Chills, Nausea, Vomiting, Shortness of Breath, Productive Cough, Chest Pain/Discomfort, Abdominal Pain, Active Bleeding or Bloody urine/stool. Diet Continue normal diet: Yes Activity Full Activity/No Limits: Yes Acute Coronary Syndrome Inclusion Criteria At DC or during hospital stay patient has or had the following: ACS DIAGNOSIS No Discharge Core Measures Meds if any: Prescribed or Continued at Discharge Meds if any: NOT Prescribed or Continued at Discharge Congestive Heart Failure Inclusion Criteria At DC or during hospital stay patient has or had the following: CHF DIAGNOSIS No Discharge Core Measures Meds if any: Prescribed or Continued at Discharge Meds if any: NOT Prescribed or Continued at Discharge Cerebrovascular accident Inclusion Criteria At DC or during hospital stay patient has or had the following: CVA/TIA Diagnosis No Discharge Core Measures Meds if any: Prescribed or Continued at Discharge Meds if any: NOT Prescribed or Continued at Discharge Venous thromboembolism Inclusion Criteria VTE Diagnosis No VTE Type NONE VTE Confirmed by (Test) NONE Discharge Core Measures - Per Current guidelines, there needs to be overlap - treatment for the first 5 days of Warfarin therapy. - If discharged on Warfarin prior to 5 days of - overlap therapy, the patient will need to be - assessed for post discharge needs including - *Post discharge parental anticoagulation - *Warfarin and/or parental anticoagulation education - *Follow up date to check INR post discharge At least 5 days overlap therapy as Inpatient No Meds if any: Prescribed or Continued at Discharge Note: Overlap Therapy is Warfarin and Anticoagulant Meds if any: NOT Prescribed or Continued at Discharge
--- NOTE | 2017-11-27 11:21 | Discharge Summary ---
Visit Information Visit Dates Admission Date: 11/25/17 Hospital Course Course Attending Physician: Sukhdev Sheth MD Primary Care Physician: Analia Walters MD Allergies: Coded Allergies: aspirin (Intermediate, GI UPSET 11/23/16) gluten (Mild, GI UPSET 12/09/16) lactase (From DAIRY AID) (Mild, LACTOSE INTOLERANT 12/09/16) Disposition Summary Disposition Discharge Disposition: home or self care Discharge Instructions General Discharge Information Code Status: Full Code Patient's Activity: As tolerated Medications at Discharge Discharge Medications: Continue taking these medications: Albuterol Sulfate (Proair Hfa) 90 MCG HFA.AER.AD 2 Puff Inhale through mouth Q6H as needed for RESPIRATORY Comments: WITH SPACER PER MAR NOT GIVEN Oxycodone HCl (Oxycontin) 20 MG TAB.ER.12H 1 Tablet ORAL Q12H Comments: Last Taken: 11/29/17 Time: 0930 Zolpidem Tartrate (Ambien) 5 MG TABLET 1 Tablet ORAL TAKE AT BEDTIME as needed for PAIN Comments: Last Taken: 11/28/17 Time: 2300 Budesonide/Formoterol Fumarate (Symbicort 160-4.5 Mcg Inhaler) 160 MCG-4.5 MCG/ ACTUATION HFA.AER.AD 2 Puff Inhale through mouth TWICE DAILY Comments: Last Taken: 11/29/17 Time: 0930 Hydromorphone HCl (Hydromorphone HCl) 4 MG TABLET 1 Tablet ORAL Q6H as needed for PAIN Qty = 60 Comments: Last Taken: 11/29/17 Time: 0600 Ipratropium/Albuterol Sulfate (Combivent Respimat Inhal [place]) 20 MCG-100 MCG/ ACTUATION MIST.INHAL 1 PUFF Inhale through mouth 4XDAILY Qty = 4 Comments: NOT GIVEN Copies To: Analia Walters MD
[2017-11-27 11:22] VITALS: BP 136/56
--- NOTE | 2017-11-27 11:48 | RADIOLOGY REPORT ---
EXAMINATION:\H\ \N\XR CHEST CLINICAL INFORMATION: Desaturation, shortness of breath. Assess for pneumonia or pulmonary edema. COMPARISON: Chest x-ray 01/05/2017. TECHNIQUE: A portable frontal 75 degrees semierect view of the chest was obtained. FINDINGS: The lungs are moderately well-expanded. The cardiac silhouette is prominent, increased compared to the prior study. The aortic arch is calcified and the descending artery is unfolded. There is mild prominence of the central pulmonary vasculature. There are linear opacities at the bases which may be consistent with atelectasis versus mild interstitial edematous changes. Opacity at the right base may be consistent with developing consolidation. There is a left pleural effusion. There are no acute osseous findings. IMPRESSION: 1. There is mild cardiomegaly, mild prominence of the central pulmonary vasculature and a left pleural effusion. There are increased interstitial markings. The findings are consistent with developing congestive heart failure. 2. Opacity at the right base may be consistent with developing consolidation.
[2017-11-27 14:41] VITALS: BP 138/60
--- NOTE | 2017-11-27 15:39 | Event Note ---
Event Note Event Note: Called by the nurse that the patient's sat went down to 89%. We'll put her on oxygen and upped it to 2 L. She is stable on 2 L and denies shortness of breath. She has some crackles on exam and on review of her I/O, because of the blood and the fluids it appears that she got much more in than out. I think she 's got acute volume overload. Will put in a Guadarraam, she is Lasix marissa will give her 20 of Lasix IV now. Will follow the I's and O's very closely. If needed was given another 20 mg of IV Lasix. We will have a low threshold to get cardiology involved.
--- NOTE | 2017-11-27 17:06 | Proc Note Gastroenterology ---
Gastroenterology Procedure Procedure Date: 11/27/17 GI Procedure(s): 1. EGD with biopsy 2. Ileoscopy 3. Proctoscopy Dry House Operator: Oliver Singh M.D. ASA Classification: III (e) Indications: * Anemia, Hemoccult-positive ostomy output * History of rectal cancer complicated by perirectal abscess and colovaginal fistula, diverting ileostomy, previous diversion colitis * Heartburn Meds Received: MAC Patient's Tolerance: good Complications: None Procedure: The patient signed informed consent for EGD/ileoscopy/colonoscopy, and was medicated. Lidocaine pharyngeal spray was administered. Pulse oximetry, blood pressure and cardiac monitoring were performed continuously throughout the procedures. The Olympus high-definition gastroscope was inserted into the mouth and advanced to the duodenum. Retroflexion was performed within the stomach to examine the cardia. Following this, the patient was placed supine, and the ostomy bag removed. The stoma was normal. The gastroscope was inserted through the stoma into the ileum. Finally, the patient was placed in the Ortiz position. Examination of the rectum revealed multiple setons. The anal canal was narrowed. The Olympus high- definition variable stiffness colonoscope was inserted through the anus and advanced into the rectum. Findings: 1. EGD with biopsy The esophagus had normal caliber and contour. The mucosa was intact throughout. There were no varices. The GE junction at 40 cm was normal. There was no hiatal hernia. The stomach had normal distention, and active peristalsis. The cardia was normal. The mucosa and folds were normal throughout. Biopsies were obtained from body, incisura and antrum. The pyloric channel, duodenal bulb and duodenal sweep were normal. 4 biopsies were obtained from the duodenal sweep. 2. Ileoscopy The stoma was normal. The ileum was examined for a distance of 60 cm. The mucosa, vasculature and folds were normal throughout. 3. Proctoscopy (aborted colonoscopy) There were multiple setons seen both externally and internally. The mucosa appeared pale, and friable. There appeared to be a stricture which was not passable. No other lumen was seen. There were no polypoid/mass lesions. Impression: * Normal EGD * Normal ileoscopy * Appearance of rectal stricture, not passable Recommendations: * Await pathology * As discussed with Dr Noyola, further evaluation of parastomal hernia and follow-up of rectal cancer/perirectal disease as per colorectal surgery service. * Given leukopenia, consideration for hematology evaluation Thank you very much for allowing our participation in this case. Please call or reconsult the GI service during this hospitalization as needed. CC: Selena CONNER,Analia Hooker; Dennys CONNER,Kandy
[2017-11-27 22:46] VITALS: BP 162/60
--- NOTE | 2017-11-28 05:41 | PN- Housestaff ---
Assessment/Plan Assessment: Ms. Beal is a 72 yo lady with a history of hypertension, osteoarthritis, chronic back pain, rectal cancer s/p post neoadjuvant chemoradiation therapy followed by low anterior resection with diverting loop ileostomy and ileostomy reversal 10 years ago, she had perirectal abscess last year at october with a reinsertion of ileostomy bag, she came in to emergency department with a c/o of right sided abdominal pain started today at 4 am. Admitted for acute blood loss anemia Assessment: #Acute blood loss anemia #SOB/weakness 2/2 to anemia #Hx. of perirectal abcess s/p ileostomy, and rectal tube #Hx. of colorectal cancer s/p resection #Hx. of HTN not on medication currently Plan: -She recieved 2 unit PRBC, Hgb on latest lab was 7.7. Goal >7 -NPO w/ prep through red rubber tube through ileostomy tube for possible scope in the afternoon. -Colonrectal surgeon would not want to proceed with any surgical procedure for now. -Monitor for any bleeding -Will continue her home medications -Pain management with iv Dilaudid 2mg IV q4 + 4mg po q 6, Oxycodone 20mg q12 -Continue IVF hydration at 75cc/hr -Anemia workup: ferritin, iron, TIBC, b12, folate all WNL dvt ppx. ALPS NPO for now Full code
[2017-11-28 07:00] VITALS: BP 118/66
[2017-11-28 09:12] LABS: HEMATOCRIT 23.5 % (37-47); MEAN CORPUSCULAR HGB 35.6 PG (27.0-31.0); MEAN CORPUSCULAR VOLUME 104.7 FL (81.0-99.0); MEAN PLATELET VOLUME 11.2 FL (7.4-10.4); RBC DISTRIBUTION WIDTH 26.5 % (11.5-14.5); RED BLOOD CELL CT 2.24 /CUMM (4.20-5.40); WHITE BLOOD CELL COUNT 2.9 /CUMM (4.8-10.8)
--- NOTE | 2017-11-28 09:46 | PN- Housestaff ---
Dru Mckoy 11/28/17 0943: Subjective Follow-up For: #Acute blood loss anemia #SOB/weakness 2/2 to anemia #Hx. of perirectal abcess s/p ileostomy, and rectal tube #Hx. of colorectal cancer s/p resection #Hx. of HTN not on medication currently Subjective: Continues to feel the same. No urinary symptoms. RLQ pain. Afebrile. Review of Systems Constitutional: Reports: see HPI. Objective Last 24 Hrs of Vital Signs/I&O Vital Signs Date Time Temp Pulse Resp B/P B/P Pulse O2 O2 Flow FiO2 Mean Ox Delivery Rate 11/28 1434 98.8 76 130/60 11/28 1348 20 92 Nasal 2.0L Cannula 11/28 1348 20 86 Room Air 11/28 1347 22 93 Nasal 2.0L Cannula 11/28 0800 95 Nasal 2.0L Cannula 11/28 0700 97.7 71 18 118/66 92 Nasal 2.0L Cannula 11/28 0000 92 Nasal 2.0L Cannula 11/27 2246 98.7 92 19 162/60 92 Nasal 2.0L Cannula 11/27 2200 90 Nasal 2.0L Cannula Intake & Output 11/28 1600 11/28 0800 11/28 0000 Intake Total 910 490 600 Output Total 660 458 9046 Balance 260 165 -1525 Intake, IV 10 10 Intake, Oral 900 480 600 Output, Stool 300 125 300 Output, Urine 032 978 0181 Physical Exam General Appearance: Alert, Oriented X3, Cooperative Skin: No Rashes, No Breakdown Cardiovascular: Regular Rate, Normal S1, Normal S2 Lungs: Clear to Auscultation, Normal Air Movement Abdomen: Normal Bowel Sounds, Soft, RLQ tenderness surrounding stoma site Extremities: No Clubbing, No Cyanosis Other Physical Findings: Right CVA tenderness Current Medications: Current Medications Sig/Dontae Start time Last Medication Dose Route Stop Time Status Admin Acetaminophen 650 MG .STK-MED ONE 11/27 1904 DC PO 11/27 1905 Acetaminophen 650 MG Q6P PRN 11/25 2045 AC 11/27 PO 190 Albuterol Sulfate 2 PUF Q6P PRN 11/25 1915 AC INH Budesonide/ 2 PUF BID 11/25 2200 AC 11/28 Formoterol Fumarate INH 1013 Cefoxitin Sodium 1,000 MG Q8 11/28 1400 AC IV Chlorhexidine 1 GM .STK-MED ONE 11/27 1541 DC Gluconate TOP 11/27 1542 Hydromorphone HCl 2 MG Q4P PRN 11/26 1530 AC 11/28 IV 1421 Hydromorphone HCl 4 MG Q6P PRN 11/26 1515 AC 11/28 PO 1306 Lidocaine 2 EDE .STK-MED ONE 11/27 1541 DC TOP 11/27 1542 Lidocaine 50 ML .STK-MED ONE 11/27 1541 DC TOP 11/27 1542 Omeprazole 20 MG DAILY AC 11/25 2045 AC 11/28 PO 0602 Ondansetron HCl 4 MG Q6P PRN 11/25 204 AC 11/27 IV 0850 Oxycodone HCl 20 MG Q12 11/25 2200 AC 11/28 PO 1014 Polyethylene Glycol 1 GAL AT BEDTIME 11/26 2200 DC 11/26 PO 2152 Sodium Chloride 1,000 ML ONCE ONE 11/27 1700 CAN IV 11/28 0619 Zolpidem Tartrate 5 MG AT BEDTIME NEED.. 11/25 2200 AC 11/28 PO 0023 Last 24 Hrs of Lab/Dar Results Last 24 Hrs of Labs/Mics: Laboratory Tests 11/28/17 0724: Anion Gap 7, Estimated GFR > 60, BUN/Creatinine Ratio 15.6, CBC w Diff MAN DIFF ORDERED, RBC 2.24 L, MCV 104.7 H, MCH 35.6 H, RDW 26.5 H, MPV 11.2 H, Segmented Neutrophils 33 L, Band Neutrophils 19 H, Lymphocytes 39, Monocytes 4 , Eosinophils 3, Basophils 2, Platelet Estimate ADEQUATE, Polychromasia 1+, Hypochromic-Microcytic 2+, Poikilocytosis 2+, Anisocytosis 2+, Macrocytic Cells 1+, PUBS MCHC 34.0 Microbiology 11/28 0650 URINE ROUT: Urine Culture - RECD Assessment/Plan Assessment: Ms. Beal is a 72 yo lady with a history of hypertension, osteoarthritis, chronic back pain, rectal cancer s/p post neoadjuvant chemoradiation therapy followed by low anterior resection with diverting loop ileostomy and ileostomy reversal 10 years ago, she had perirectal abscess last year at october with a reinsertion of ileostomy bag, she came in to emergency department with a c/o of right sided abdominal pain started today at 4 am. Admitted for acute blood loss anemia Assessment: # ?Upper UTI - No CT evidence, positive CVA tenderness, h/o UTI in 1989, GNR in urine, No fevers, pancytopenic - Will treat. 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 #Acute blood loss anemia #SOB/weakness 2/2 to anemia #Hx. of perirectal abcess s/p ileostomy, and rectal tube #Hx. of colorectal cancer s/p resection #Hx. of HTN not on medication currently Plan: - Start Cefoxitin. Follow C and S. -H and H stable - GI following -Monitor for any bleeding -Will continue her home medications -Pain management dvt ppx. ALPS NPO for now Full code Problem List: 1. Leukopenia 2. Perirectal abscess Pain Ratin Pain Location: RLQ Pain Goal: Pain 4 or less Pain Plan: PRN Narcs Tomorrow's Labs & Rationales: Anemia Linden CONNER,Vee 11/28/17 1200: Attending MD Review Statement Attending Statement Attending MD Statement: examined this patient, discuss w/resident/PA/LINE CLEARANCE FOREMAN, agreed w/resident/PA/LINE CLEARANCE FOREMAN, reviewed EMR data (avail), discussed with nursing Attending Assessment/Plan: Overall patient feels about the same and he continues to have the flank pain. Yesterday when she had her Guadarrama put in she had a reflex UA urine culture done and the UA is dirty and the culture is growing gram-negative rods. My inclination at first was not to treat this and this was asymptomatic bacteriuria but given the fact that she is got this flank pain and a fairly low white count, we'll give her a course of antibiotics. Her crit is stable and will continue to follow that. We'll take out the Guadarrama, ambulate her, taper O2 as tolerated and if okay plan for discharge in a.m. with outpatient follow-up.
[2017-11-28 10:24] LABS: PLATELET COUNT 168 /CUMM (130-400)
--- NOTE | 2017-11-28 13:18 | Cons- Cardiology ---
General Information and HPI Consulting Request Date of Consult: 11/28/17 Requested By: Linden CONNER,Vee [place] Reason for Consult: Dyspnea Source of Information: patient, family, old records History of Present Illness: This is a 72-year-old female with a history of celiac disease, chronic back pain , rectal cancer with prior ileostomy and reversal, and COPD who was initially admitted to [facility] with a chief complaint of abdominal pain. She was also experiencing exertional shortness of breath in recent weeks; she tells me she always has exertional shortness of breath but does admit it was worse recently. This was not associated with any chest pain or palpitations. She denied increasing lower extremity edema although she tells me she always has some edema in her ankles. She apparently saw Dr. Smallwood a few years ago but has not followed up with him since then. She believes prior cardiac testing in the past was grossly normal. She did require transfusion for the anemia and yesterday was noted to have decreasing oxygen saturation although she tells me she did not feel particularly more short of breath yesterday. In her room today she denies any active dyspnea at rest. Allergies/Medications Allergies: Coded Allergies: aspirin (Intermediate, GI UPSET 11/23/16) gluten (Mild, GI UPSET 12/09/16) lactase (From DAIRY AID) (Mild, LACTOSE INTOLERANT 12/09/16) Home Med List: Albuterol Sulfate (Proair Hfa) 90 MCG HFA.AER.AD 2 PUF INH Q6H PRN RESPIRATORY (Reported) Budesonide/Formoterol Fumarate (Symbicort 160-4.5 Mcg Inhaler) 160 MCG-4.5 MCG/ ACTUATION HFA.AER.AD 2 PUF INH BID RESPIRATORY (Reported) Hydromorphone HCl 4 MG TABLET 1 TAB PO Q6H PRN PAIN (Reported) Ipratropium/Albuterol Sulfate (Combivent Respimat Inhal [place]) 20 MCG-100 MCG/ ACTUATION MIST.INHAL 1 PUFF INH 4XDAILY RESP. (Reported) Oxycodone HCl (Oxycontin) 20 MG TAB.ER.12H 1 TAB PO Q12H PAIN (Reported) Zolpidem Tartrate (Ambien) 5 MG TABLET 1 TAB PO QHS PRN PAIN (Reported) Current Medications: Current Medications Sig/Dontae Start time Last Medication Dose Route Stop Time Status Admin Acetaminophen 650 MG .STK-MED ONE 11/27 1904 DC PO 11/27 1905 Acetaminophen 650 MG Q6P PRN 11/25 2045 AC 11/27 PO 1905 Albuterol Sulfate 2 PUF Q6P PRN 11/25 1915 AC INH Budesonide/ 2 PUF BID 11/25 2200 AC 11/28 Formoterol Fumarate INH 1013 Cefoxitin Sodium 1,000 MG Q8 11/28 1400 AC IV Chlorhexidine 1 GM .STK-MED ONE 11/27 1541 DC Gluconate TOP 11/27 1542 Furosemide 20 MG ONCE ONE 11/27 1300 DC 11/27 IV 11/27 1301 1435 Hydromorphone HCl 2 MG Q4P PRN 11/26 1530 AC 11/27 IV 2156 Hydromorphone HCl 4 MG Q6P PRN 11/26 1515 AC 11/28 PO 0024 Lidocaine 2 EDE .STK-MED ONE 11/27 1541 DC TOP 11/27 1542 Lidocaine 50 ML .STK-MED ONE 11/27 1541 DC TOP 11/27 1542 Omeprazole 20 MG DAILY AC 11/25 204 AC 11/28 PO 0602 Ondansetron HCl 4 MG Q6P PRN 11/25 2045 AC 11/27 IV 0850 Oxycodone HCl 20 MG Q12 11/25 2200 AC 11/28 PO 1014 Polyethylene Glycol 1 GAL AT BEDTIME 11/26 220 DC 11/26 PO 2152 Sodium Chloride 1,000 ML ONCE ONE 11/27 1700 CAN IV 11/28 0619 Zolpidem Tartrate 5 MG AT BEDTIME NEED.. 11/25 220 11/28 PO 0023 Review of Systems Review of Systems: Review of systems as per HPI. The remainder of a 10 point review of systems was reviewed and was otherwise negative. Past History Travel History Traveled to [place] past 21 day No Medical History Blood Transfusion Hx: Yes EENT: allergies Cardiovascular: hypertension Respiratory: asthma, pneumonia Gastrointestinal: GERD, ULCERS Hepatic: NONE Renal: NONE Musculoskeletal: chronic back pain, osteoarthritis Psychiatric: NONE Endocrine: NONE Blood Disorders: NONE Cancer(s): rectal ca INTERNATIONAL SALES MANAGER/Reproductive: NONE Other Medical Hx: rectal CA, presacral abscess, colovaginal fistula Surgical History Surgical History: hernia repair-ventral, lower anterior resection with diverting ileostomy 2006 reversal in 2006 with creation of an ileostomy and subsequent reversal in tonsillectomy diverting loop ileostomy Psychosocial History Where Do You Live? Home Who Do You Live With? spouse Services at Home: None Smoking Status: Former Smoker ETOH Use: occasional use Illicit Drug Use: denies illicit drug use Functional Ability ADLs Independent: dressing, eating, toileting, bathing. Ambulation: independent IADLs Independent: shopping, housework, finances, food prep, telephone, transportation , medication admin. Exam & Diagnostic Data Vital Signs and I&O Vital Signs Date Time Temp Pulse Resp B/P B/P Pulse O2 O2 Flow FiO2 Mean Ox Delivery Rate 11/28 0700 97.7 71 18 118/66 92 Nasal 2.0L Cannula 11/28 0000 92 Nasal 2.0L Cannula 11/27 2246 98.7 92 19 162/60 92 Nasal 2.0L Cannula 11/27 2200 90 Nasal 2.0L Cannula 11/27 1441 98.2 79 18 138/60 Intake & Output 11/28 1600 11/28 0800 11/28 0000 11/27 1600 11/27 0800 11/27 0000 Intake Total 490 600 400 Output Total 754 694 0427 500 Balance -300 165 -1525 -100 Intake, Blood 350 Product Intake, IV 10 50 Intake, Oral 480 600 0 Output, Stool 125 300 0 Output, Urine 960 470 9462 500 Physical Exam: General: no apparent distress. Alert. Eyes: No obvious scleral icterus. HEENT: No jugular venous distention or abnormal jugular venous pulsations. Cardiovascular: Normal intensity S1/S2. Regular Respiratory: No rales or rhonchi; decreased air entry at the right base Abdomen: no guarding or rebound tenderness. Musculoskeletal: No clubbing or cyanosis noted; trace lower extremity edema Skin: warm Neurologic: No gross focal deficits noted. Labs/Dar Results: Laboratory Tests 11/28 11/27 0724 1445 Chemistry Sodium (137 - 145 mmol/L) 141 Potassium (3.5 - 5.1 mmol/L) 4.0 Chloride (98 - 107 mmol/L) 104 Carbon Dioxide (22 - 30 mmol/L) 29 Anion Gap (5 - 16) 7 BUN (7 - 17 mg/dL) 14 Creatinine (0.5 - 1.0 mg/dL) 0.9 Estimated GFR (>60 ml/min) > 60 BUN/Creatinine Ratio (7 - 25 %) 15.6 Hematology CBC w Diff MAN DIFF ORDERED WBC (4.8 - 10.8 /CUMM) 2.9 L RBC (4.20 - 5.40 /CUMM) 2.24 L Hgb (12.0 - 16.0 G/DL) 8.0 L Hct (37 - 47 %) 23.5 L MCV (81.0 - 99.0 FL) 104.7 H MCH (27.0 - 31.0 PG) 35.6 H RDW (11.5 - 14.5 %) 26.5 H Plt Count (130 - 400 /CUMM) 168 MPV (7.4 - 10.4 FL) 11.2 H Segmented Neutrophils (42.2 - 75.2 %) 33 L Band Neutrophils (0.0 - 5.0 %) 19 H Lymphocytes (20.5 - 51.1 %) 39 Monocytes (1.7 - 9.3 %) 4 Eosinophils (0 - 5.0 %) 3 Basophils (0.0 - 2.0 %) 2 Platelet Estimate (ADEQUATE) ADEQUATE Polychromasia 1+ Hypochromic-Microcytic 2+ Poikilocytosis 2+ Anisocytosis 2+ Macrocytic Cells 1+ PUBS MCHC (33.0 - 37.0 G/DL) 34.0 Urines Urine Color (YEL,AMB,STR) YEL Urine Clarity (CLEAR) CLDY H Urine pH (5.0 - 8.0) 5.5 Ur Specific [place] (1.001 - 1.035) >= 1.030 Urine Protein (NEG,<30 MG/DL) 30 H Urine Ketones (NEG) 40 H Urine Nitrite (NEG) NEG Urine Bilirubin (NEG) NEG@ICTO Urine Urobilinogen (0.1 - 1.0 EU/dl) 0.2 Ur Leukocyte Esterase (NEG) MOD H Ur Microscopic SEDIMENT EXAMINED Urine RBC (0 - 5 /HPF) 15-25 H Urine WBC (0 - 2 /HPF) 50-75 H Ur Epithelial Cells (NONE,FEW) FEW Urine Bacteria (NEG/NONE) MANY H Urine Hemoglobin (NEG) LARGE H Urine Glucose (N MG/DL) NEG 11/27 0700 Chemistry Sodium (137 - 145 mmol/L) 139 Potassium (3.5 - 5.1 mmol/L) 4.3 Chloride (98 - 107 mmol/L) 106 Carbon Dioxide (22 - 30 mmol/L) 28 Anion Gap (5 - 16) 5 BUN (7 - 17 mg/dL) 11 Creatinine (0.5 - 1.0 mg/dL) 0.8 Estimated GFR (>60 ml/min) > 60 BUN/Creatinine Ratio (7 - 25 %) 13.8 Hematology CBC w Diff MAN DIFF ORDERED WBC (4.8 - 10.8 /CUMM) 3.0 L RBC (4.20 - 5.40 /CUMM) 2.00 L Hgb (12.0 - 16.0 G/DL) 7.3 *L Hct (37 - 47 %) 21.4 L MCV (81.0 - 99.0 FL) 107.1 H MCH (27.0 - 31.0 PG) 36.4 H RDW (11.5 - 14.5 %) 27.2 H Plt Count (130 - 400 /CUMM) 187 MPV (7.4 - 10.4 FL) 11.1 H Gran % (42.2 - 75.2 %) 71.3 Lymphocytes % (20.5 - 51.1 %) 20.3 L Monocytes % (1.7 - 9.3 %) 5.3 Eosinophils % (0 - 5 %) 2.7 Basophils % (0.0 - 2.0 %) 0.4 Absolute Granulocytes (1.4 - 6.5 /CUMM) 2.1 Segmented Neutrophils (42.2 - 75.2 %) 56 Band Neutrophils (0.0 - 5.0 %) 14 H Absolute Lymphocytes (1.2 - 3.4 /CUMM) 0.6 L Lymphocytes (20.5 - 51.1 %) 25 Monocytes (1.7 - 9.3 %) 2 Absolute Monocytes (0.10 - 0.60 /CUMM) 0.2 Absolute Eosinophils (0.0 - 0.7 /CUMM) 0.1 Basophils (0.0 - 2.0 %) 1 Absolute Basophils (0.0 - 0.2 /CUMM) 0 Metamyelocytes (0.0 - 1.0 %) 2 H Platelet Estimate (ADEQUATE) VERIFIED BY SMEAR Hypochromic-Microcytic 1+ Poikilocytosis 1+ Anisocytosis 1+ Macrocytic Cells 1+ Stomatocytes 1+ PUBS MCHC (33.0 - 37.0 G/DL) 34.0 Diagnostic Data EKG Results Tracing was personally reviewed and shows sinus rhythm at 85 bpm with a PVC CXR Results 1. There is mild cardiomegaly, mild prominence of the central pulmonary vasculature and a left pleural effusion. There are increased interstitial markings. The findings are consistent with developing congestive heart failure. 2. Opacity at the right base may be consistent with developing consolidation. Other Results Abdominal CT 1. Right lower quadrant parastomal hernia. No definite evidence of bowel obstruction. 2. Redemonstrated catheter coursing through a presacral collection suspected to be composed of complex fluid. Overall collection size is similar to 12/09/2016, though there is now decreased gas within the collection compared to prior. Assessment/Plan Assessment/Plan 1. Symptomatic anemia status post transfusion with transient volume overload 2. COPD 3. Chronic exertional dyspnea 4. History of rectal cancer The patient's likely developed some transient volume overloaded due to IV fluids and transfusion; she now appears euvolemic and denies active dyspnea. Some of her recent symptoms were certainly likely due to anemia but a noninvasive cardiac evaluation would be appropriate in the near future including a transthoracic echocardiogram and stress test. As she appears stable at this point from a cardiac standpoint this potentially could be done in Dr. Smallwood' s office after discharge. Case was discussed with the medical attending, Dr. Stephenson. Please call me with any additional questions or concerns. Sukh Gamboa MD [facility] Consult Acknowledgment - Thank you for your consult request.
[2017-11-28 14:34] VITALS: BP 130/60
[2017-11-28 21:58] VITALS: BP 138/62
[2017-11-29 06:54] VITALS: BP 146/70
[2017-11-29 08:33] LABS: ABSOLUTE BASOPHIL COUNT 0 /CUMM (0.0-0.2); ABSOLUTE EOSINOPHIL COUNT 0.1 /CUMM (0.0-0.7); ABSOLUTE GRANULOCYTE CT 1.7 /CUMM (1.4-6.5); ABSOLUTE LYMPH COUNT 0.6 /CUMM (1.2-3.4); ABSOLUTE MONOCYTE COUNT 0.1 /CUMM (0.10-0.60); BASOPHIL % 0.4 % (0.0-2.0); EOSINOPHIL % 2.7 % (0-5); GRANULOCYTE % 69.3 % (42.2-75.2); HEMATOCRIT 24.5 % (37-47); MEAN CORPUSCULAR HGB 35.3 PG (27.0-31.0); MEAN CORPUSCULAR HGB CONC 33.6 G/DL (33.0-37.0); MEAN PLATELET VOLUME 9.6 FL (7.4-10.4); PLATELET COUNT 157 /CUMM (130-400); RBC DISTRIBUTION WIDTH 26.8 % (11.5-14.5); RED BLOOD CELL CT 2.34 /CUMM (4.20-5.40); WHITE BLOOD CELL COUNT 2.4 /CUMM (4.8-10.8)
--- NOTE | 2017-11-29 09:35 | PN- Housestaff ---
RodriguezNatalie 11/29/17 0935: Subjective Follow-up For: #Acute blood loss anemia #SOB/weakness 2/2 to anemia #Hx. of perirectal abcess s/p ileostomy, and rectal tube #Hx. of colorectal cancer s/p resection #Hx. of HTN not on medication currently Subjective: [place] no general improvement despite previous scope results/antibiotics. Denied fever/chills, still c/o of RLQ pain. Still breathing on 2L O2 Review of Systems Constitutional: Reports: see HPI. Objective Last 24 Hrs of Vital Signs/I&O Vital Signs Date Time Temp Pulse Resp B/P B/P Pulse O2 O2 Flow FiO2 Mean Ox Delivery Rate 11/29 1019 18 94 Nasal 2.5L Cannula 11/29 1019 18 80 Room Air 11/29 1009 20 90 Nasal 2.5L Cannula 11/29 1008 20 80 Room Air 11/29 0800 Nasal 2.5L Cannula 11/29 0654 97.7 78 20 146/70 92 11/29 0000 Nasal 2.5L Cannula 11/28 2158 98.4 85 19 138/62 93 Nasal 2.5L Cannula 11/28 1600 Nasal 2.0L Cannula 11/28 1434 98.8 76 130/60 11/28 1348 20 92 Nasal 2.0L Cannula 11/28 1348 20 86 Room Air 11/28 1347 22 93 Nasal 2.0L Cannula Intake & Output 11/29 1600 11/29 0800 11/29 0000 Intake Total 310 970 Output Total 100 750 Balance 210 220 Intake, IV 70 20 Intake, Oral 240 950 Output, Stool 100 250 Output, Urine 500 Physical Exam General Appearance: Alert, Oriented X3, Cooperative, Mild Distress Cardiovascular: Regular Rate Lungs: Normal Air Movement Abdomen: Soft, RLQ pain surround ileostomy tube site Neurological: Normal Speech Extremities: No Edema, Normal Pulses Current Medications: Current Medications Sig/Dontae Start time Last Medication Dose Route Stop Time Status Admin Acetaminophen 650 MG Q6P PRN 11/25 2045 AC 11/27 PO 1905 Albuterol Sulfate 2 PUF Q6P PRN 11/25 191 AC INH Budesonide/ 2 PUF BID 11/25 2200 AC 11/29 Formoterol Fumarate INH 0934 Cefoxitin Sodium 1,000 MG Q8H 11/28 1700 AC 11/29 IV 0934 Cefoxitin Sodium 1,000 MG Q8 11/28 1400 DC IV Hydromorphone HCl 2 MG Q4P PRN 11/26 1530 AC 11/29 IV 0559 Hydromorphone HCl 4 MG Q6P PRN 11/26 1515 AC 11/29 PO 0142 Omeprazole 20 MG DAILY AC 11/25 2045 AC 11/29 PO 0559 Ondansetron HCl 4 MG Q6P PRN 11/25 2045 AC 11/27 IV 0850 Oxycodone HCl 20 MG Q12 11/25 2200 AC 11/29 PO 0935 Zolpidem Tartrate 5 MG AT BEDTIME NEED.. 11/25 2200 AC 11/28 PO 2319 Last 24 Hrs of Lab/Dar Results Last 24 Hrs of Labs/Mics: Laboratory Tests 11/29/17 0725: CBC w Diff MAN DIFF ORDERED, RBC 2.34 L, MCV 105.0 H, MCH 35.3 H, RDW 26.8 H , MPV 9.6, Gran % 69.3, Lymphocytes % 25.3, Monocytes % 2.3, Eosinophils % 2.7, Basophils % 0.4, Absolute Granulocytes 1.7, Segmented Neutrophils 37 L, Band Neutrophils 19 H, Absolute Lymphocytes 0.6 L, Lymphocytes 36, Monocytes 4, Absolute Monocytes 0.1, Absolute Eosinophils 0.1, Basophils 4 H, Absolute Basophils 0, Platelet Estimate ADEQUATE, Hypochromic-Microcytic 2+, Poikilocytosis 2+, Anisocytosis 1+, Ovalocytes 2+, PUBS MCHC 33.6 Assessment/Plan Assessment: Ms. Beal is a 72 yo lady with a history of hypertension, osteoarthritis, chronic back pain, rectal cancer s/p post neoadjuvant chemoradiation therapy followed by low anterior resection with diverting loop ileostomy and ileostomy reversal 10 years ago, she had perirectal abscess last year at october with a reinsertion of ileostomy bag, she came in to emergency department with a c/o of right sided abdominal pain started today at 4 am. Admitted for acute blood loss anemia Assessment: # ?Upper UTI - No CT evidence, positive CVA tenderness, h/o UTI in 1989, GNR in urine, No fevers, pancytopenic - Will treat. 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 #Acute blood loss anemia #SOB/weakness 2/2 to anemia #Hx. of perirectal abcess s/p ileostomy, and rectal tube #Hx. of colorectal cancer s/p resection #Hx. of HTN not on medication currently Plan: - Start Cefoxitin. Follow C and S. - H and H stable - GI following - Monitor for any bleeding - Will continue her home medications - Pain management - Pending discharge to home with O2 today, GI had discussed with Dr Noyola, further evaluation of parastomal hernia and follow-up of rectal cancer/ perirectal disease as per colorectal surgery service. dvt ppx. ALPS NPO for now Full code Problem List: 1. Flash pulmonary edema 2. Rectal stricture 3. Asymptomatic bacteriuria Pain Ratin Pain Location: RLQ ab Pain Goal: Pain 4 or less Pain Plan: see AP Tomorrow's Labs & Rationales: THUAN Cheatham MD,Vee 11/29/17 0938: Attending MD Review Statement Attending Statement Attending MD Statement: examined this patient, discuss w/resident/PA/ER MANAGER, agreed w/resident/PA/ER MANAGER, discussed with family, reviewed EMR data (avail), reviewed images Attending Assessment/Plan: Patient feels about the same despite the IV antibiotics. The resident yesterday was concerned whether the flank pain could be Pyelo. I don't think this is an infection at all. Patient is afebrile didn't have a white count and had no urinary symptoms at all. When we put the Guadarrama in for acute volume overload and to monitor her output on IV Lasix, a reflex UA and urine culture was sent which is showing gram-negative rods and the positive UA. I explained to the patient at length that I feel this is asymptomatic bacteriuria but does not need to be treated. In fact given all the resistant bugs she has grown in the past and the complex colorectal issues with a colovaginal fistula, I think giving her antibiotics would do more harm than good. At this point her hemoglobin is stable at 8.3 and I think she can be discharged. I talked to her at length about close outpatient follow-up with 1) Dr. Manzo her colorectal surgeon, 2) Dr. Jesus Zavala and to follow-up on the biopsies given the stricture and 3) her PCP given the multifactorial anemia. I also explained the need for cardiology follow-up and she seen Dr. Smallwood before. She needs outpatient cardiology follow-up in an outpatient echocardiogram.
--- NOTE | 2017-11-29 11:10 | Discharge Summary ---
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 Noyola, is here for evaluation of right lower quadrant abdominal pain. Patient reports 1 day prior she developed right lower back pain, which then subsided overnight. This morning she developed right lower quadrant pain around the ileostomy and right upper quadrant pain which is severe, nonradiating and throbbing in nature. She did not find relief with home dose of oxycontin and dilaudid, hence she came to ER. She c/o nausea, but no vomiting. She continues to have regular loose BM's through ileostomy. Of note, patient has a seton drain in her rectum to prevent recurrent abscess formation. At baseline, she has pinkish (not BRBPR) mucousy discharge from the rectum. She was treated with a course of antibiotics in Aug 2017 for persistent drainage from the rectal area for concerns of recurrent infection. She also reports 1 month history of fatigue, exertional dyspnea which has gradually worsened. She tried using her inhalers without reliefDenies chest pain , palpitations. She also reports taking Aleve (~ 400 mg daily) everyday for her chronic pain about 3 weeks ago. At one point, she noticed bright red blood with ?clot while doing Sitz bath and since then she stopped taking NSAIDs. She did take prilosec for a short while. She denies black stools or BRB from the ileostomy. She denies heartburn or hematemesis. She denies urinary symptoms. Last colonoscopy (January 2017): Breakdown of the rectal anastomosis with colovaginal fistula with diversion colitis. Pathology: fragments of granulation tissue with acute and chronic inflammation and surface erosion. Of note, patient was had incisional ventral hernia with incarcerated small bowel and partial SBO that was repaired in Nov [address] Noyola. We admitted the patient to general medicine floor with the following problem: 1. Right sided abdominal pain: CT abdomen and pelvis was done which showed right lower quadrant parastomal hernia , abdominal pain appears to be related to the stoma, specifically the area of a parastomal hernia. 2. Symptomatic anemia: Patient received a total of 3 units of blood throughout the admission, her H&H at admission was 6.8/20, which improved to 8.3/24.5 at discharge, her baseline H &H is 10.3/30. Her routine, total iron-binding capacity, iron level, folic acid , and B12 are all within normal limits. 3. Acute anemia of blood loss: GI consult was obtained with Dr. Singh who did EGD with biopsy, Ileoscopy and Proctoscopy: She had Normal EGD Biopsies were obtained from body, incisura and antrum. The pyloric channel, duodenal bulb and duodenal sweep were normal. 4 biopsies were obtained from the duodenal sweep, she needs to follow up the pathology report with her spanish interpreter, she had Normal ileoscopy, Appearance of rectal stricture was not passable, 4. History of rectal cancer with complications 5. Leukopenia with bandemia - chronic: She needs hematology evaluation as an outpatient 6. Asymptomatic bacteriuria 7. On the day of her discharge she was desaturating down to 80's, with no associated chest pain or palpitation, chest x-ray was done which showed mild prominence of the central pulmonary vasculature and a left pleural effusion. There are increased interstitial markings. The findings are consistent with developing congestive heart failure. Opacity at the right base may be consistent with developing consolidation. These findings are most likely secondary to blood transfusion and hydration although the patient had a history of oxygen at home she was tapered off oxygen on June,. She was started on 2 L O2 nasal cannula, which bumped up to 2.5 L oxygen, try to taper oxygen as bshe became desaturated again, she will be discharged on oxygen and she needs a follow-up with her primary care physician, eligibility specialist for noninvasive cardiac evaluation which will include echocardiogram and stress test 8. Guadarrama catheter was inserted for closely monitoring her I's&O's, Sheis afebrile didn't have a white count and had no urinary symptoms at all. When we put the Guadarrama in for acute volume overload and to monitor her output on IV Lasix , a reflex UA and urine culture was sent which is showing gram-negative rods and the positive UA. She was initiated on Cefoxitinn for one day but the patient no improvement despite the antibiotic use, she remains asymptomatic so, antibiotic was discontinued given all the resistant bugs she has grown in the past and the complex colorectal issues with a colovaginal fistula, giving her antibiotics would do more harm than good. She needs a close outpatient follow-up with 1) Dr. Noyola her colorectal surgeon, 2) Dr. Jesus Zavala and to follow-up on the biopsies given the stricture and 3) her PCP given the multifactorial anemia. She needs cardiology follow-up and she seen Dr. Smallwood as discussed above. Allergies: Coded Allergies: aspirin (Intermediate, GI UPSET 11/23/16) gluten (Mild, GI UPSET 12/09/16) lactase (From DAIRY AID) (Mild, LACTOSE INTOLERANT 12/09/16) Disposition Summary Disposition Principal Diagnosis: -Chronic anemia -Occult GI bleed -Right lower quadrant pain/tenderness. related to the stoma, specifically the area of a parastomal hernia. -SOB on O2 -History of rectal cancer with complications -Leukopenia with bandemia - chronic -Asymptomatic bacteriuria -Hx. of HTN not on medication currently Additional Diagnosis: As above Discharge Disposition: HOME Discharge Instructions General Discharge Information Code Status: Full Code Patient's Diet: REGULAR DIET Patient's Activity: TOLERATED Follow-Up Instructions/Appts: - Please follow up with Dr. Greene for your heart condition evaluation. - Please follow up with your colonorectal surgeon. - Please follow up with your GI specialist Dr. Singh for your colonoscopy follow up. - Please follow up with your primary care physician within 1-2 week of discharge. Inform your primary care physician of this admission to [facility]. - Continue your current medications per discharge instructions. - Please watch for these problems: Fever, Chills, Nausea, Vomiting, Shortness of Breath, Productive Cough, Chest Pain/Discomfort, Abdominal Pain, Active Bleeding or Bloody urine/stool. Medications at Discharge Discharge Medications: Continue taking these medications: Albuterol Sulfate (Proair Hfa) 90 MCG HFA.AER.AD 2 Puff Inhale through mouth Q6H as needed for RESPIRATORY Comments: WITH SPACER PER MAR NOT GIVEN Oxycodone HCl (Oxycontin) 20 MG TAB.ER.12H 1 Tablet ORAL Q12H Comments: Last Taken: 11/29/17 Time: 0930 Zolpidem Tartrate (Ambien) 5 MG TABLET 1 Tablet ORAL TAKE AT BEDTIME as needed for PAIN Comments: Last Taken: 11/28/17 Time: 2300 Budesonide/Formoterol Fumarate (Symbicort 160-4.5 Mcg Inhaler) 160 MCG-4.5 MCG/ ACTUATION HFA.AER.AD 2 Puff Inhale through mouth TWICE DAILY Comments: Last Taken: 11/29/17 Time: 09 Hydromorphone HCl (Hydromorphone HCl) 4 MG TABLET 1 Tablet ORAL Q6H as needed for PAIN Qty = 60 Comments: Last Taken: 11/29/17 Time: 1330 Ipratropium/Albuterol Sulfate (Combivent Respimat Inhal [place]) 20 MCG-100 MCG/ ACTUATION MIST.INHAL 1 PUFF Inhale through mouth 4XDAILY Qty = 4 Comments: NOT GIVEN Copies To: Selena CONNER,Analia Hooker; Samantha CONNER,Oliver Carreon; Handy Smallwood MD; Kandy Noyola MD
== END 2017-11-29 14:26 | disposition home health service (06) | DRG 378 ==
LOC: ERH 12:58 → 2NB 16:34 → ERHI 16:34 → ENRESERV 18:29 → 2NB 19:16 → ENTRNSPT 11-29 13:56 → ENPENDDIS 11-29 13:56 → EDTRNSPT 11-29 14:22 → EDTRNSPTSTS 11-29 14:22 → EDTRNSPTTM 11-29 14:22 → 2NB 11-29 14:26 → CMPTRNSPT 11-29 14:33
PROVIDERS: Physician Assistant Medical; Student in an Organized Health Care Education/Training Program
PROC: 30233N1 Transfusion of Nonautologous Red Blood Cells into Peripheral Vein, Percutaneous Approach (ICD-10-PCS; principal; 2017-11-25)
PROC: 0DB68ZX Excision of Stomach, Via Natural or Artificial Opening Endoscopic, Diagnostic (ICD-10-PCS; 2017-11-27)
PROC: 0DJD8ZZ Inspection of Lower Intestinal Tract, Via Natural or Artificial Opening Endoscopic (ICD-10-PCS; 2017-11-27)
DX: K92.2 Gastrointestinal hemorrhage, unspecified (principal); D62 Acute posthemorrhagic anemia; E87.71 Transfusion associated circulatory overload; J44.9 Chronic obstructive pulmonary disease, unspecified; K62.4 Stenosis of anus and rectum; K61.1 Rectal abscess; R82.71 Bacteriuria; T85.848A Pain due to other internal prosthetic devices, implants and grafts, initial encounter; D72.819 Decreased white blood cell count, unspecified; K43.5 Parastomal hernia without obstruction or gangrene; E66.9 Obesity, unspecified; Y83.8 Other surgical procedures as the cause of abnormal reaction of the patient, or of later complication, without mention of misadventure at the time of the procedure; Z68.34 Body mass index [BMI] 34.0-34.9, adult; Z93.2 Ileostomy status; I10 Essential (primary) hypertension; G89.29 Other chronic pain; M54.9 Dorsalgia, unspecified; K21.9 Gastro-esophageal reflux disease without esophagitis; Z85.038 Personal history of other malignant neoplasm of large intestine; Z92.21 Personal history of antineoplastic chemotherapy; Z92.3 Personal history of irradiation; M19.90 Unspecified osteoarthritis, unspecified site; Z87.891 Personal history of nicotine dependence; K90.0 Celiac disease
CPT/HCPCS: 2NBSP; 36415; 74177; 81001; 82436; 86920; 87086; 93005; 93010; 96374; 96375; 96376; J0694; J1940; J2405; J3490; P9016

== ENCOUNTER 2018-03-16 11:53 | Emergency (ER) | payer OTHER ==
[~2018-03-16] VITALS: Ht 172.7 cm; Wt 104.3 kg
[~2018-03-16 11:53] MED LIST changes: +COMBIVENT RESPIM4 GM INH; +HYDROMORPHONE HC4 M1 PO
[2018-03-16 12:24] VITALS: BP 165/79
[2018-03-16 12:39] LABS: HEMATOCRIT 21.3 % (37-47); MEAN CORPUSCULAR HGB CONC 33.7 G/DL (33.0-37.0); MEAN CORPUSCULAR VOLUME 112.6 FL (81.0-99.0); MEAN PLATELET VOLUME 10.6 FL (7.4-10.4); PLATELET COUNT 206 /CUMM (130-400); RED BLOOD CELL CT 1.89 /CUMM (4.20-5.40); WHITE BLOOD CELL COUNT 2.4 /CUMM (4.8-10.8)
--- NOTE | 2018-03-16 12:51 | ED GENERAL ADULT ---
See Addendum History of Present Illness General Chief Complaint: General Adult Stated Complaint: SENT BY [facility] FOR BLOOD TRANSFUSION Source: patient Exam Limitations: no limitations Vital Signs & Intake/Output Vital Signs & Intake/Output Vital Signs Date Time Temp Pulse Resp B/P B/P Pulse O2 O2 Flow FiO2 Mean Ox Delivery Rate 03/16 1400 95 Nasal 1.0L Cannula 03/16 1224 96.5 109 20 165/79 97 Nasal 1.0L Cannula Allergies Coded Allergies: aspirin (Intermediate, GI UPSET 11/23/16) gluten (Mild, GI UPSET 12/09/16) lactase (From DAIRY AID) (Mild, LACTOSE INTOLERANT 12/09/16) Reconcile Medications Albuterol Sulfate (Proair Hfa) 90 MCG HFA.AER.AD 2 PUF INH Q6H PRN RESPIRATORY (Reported) Budesonide/Formoterol Fumarate (Symbicort 160-4.5 Mcg Inhaler) 160 MCG-4.5 MCG/ ACTUATION HFA.AER.AD 2 PUF INH BID RESPIRATORY (Reported) Hydromorphone HCl 4 MG TABLET 1 TAB PO Q6H PRN PAIN (Reported) Ipratropium/Albuterol Sulfate (Combivent Respimat Inhal [place]) 20 MCG-100 MCG/ ACTUATION MIST.INHAL 1 PUFF INH 4XDAILY RESP. (Reported) Oxycodone HCl (Oxycontin) 20 MG TAB.ER.12H 1 TAB PO Q12H PAIN (Reported) Zolpidem Tartrate (Ambien) 5 MG TABLET 1 TAB PO QHS PRN PAIN (Reported) Triage Note: SENT BY DR. SAAVEDRA FOR BLOOD TRANSFUSION, STATES SHE WAS CALLED ON 03/12 BY PMD FOR A HGB OF 7.5. C/O SOB AND FEELING TIRED. 02 DEPENDENT. Triage Nurses Notes Reviewed? yes Onset: Gradual Duration: day(s): Timing: recent history HPI: 03/16/18 72-year-old female presents to the emergency department for blood transfusion. I spoke with Dr. Saavedra. The patient has a history of chronic anemia. Her hemoglobin has been relatively stable but she says that she's been feeling weak. She has no chest pain or shortness of breath. She has a past medical history of COPD she is on 1 L of oxygen nasal cannula. She says she also has a ileostomy. She denies any active bleeding. She denies any pain. She is being taken to the in-hospital infusion center to receive 2 units of blood. She will follow-up with Dr. Saavedra. I discussed the patient's care with Dr. Saavedra. She agreed that we will transfuse the patient and she will follow-up with the patient this week. Past History Travel History Traveled to [place] past 21 day No Medical History Any Pertinent Medical History? see below for history EENT: allergies Cardiovascular: hypertension Respiratory: asthma, pneumonia Gastrointestinal: GERD, ULCERS Hepatic: NONE Renal: NONE Musculoskeletal: chronic back pain, osteoarthritis Psychiatric: NONE Endocrine: NONE Blood Disorders: NONE Cancer(s): rectal ca CHIEF MATE/Reproductive: NONE Other Medical Hx: rectal CA, presacral abscess, colovaginal fistula History of MRSA: No History of VRE: No History of CDIFF: No Influenza Vaccine: 11/12/17 Surgical History Surgical History: hernia repair-ventral, lower anterior resection with diverting ileostomy 2005 reversal in 2006 with creation of an ileostomy and subsequent reversal in tonsillectomy diverting loop ileostomy Psychosocial History Who do you live with Spouse Services at Home None What is your primary language Turkmen Tobacco Use: Quit <30 days ago ETOH Use: denies use Family History Hx Contributory? No Review of Systems Review of Systems Constitutional: Denies: fever. EENTM: Reports: no symptoms. Respiratory: Reports: no symptoms. Cardiovascular: Reports: no symptoms. GI: Reports: no symptoms. Genitourinary: Reports: no symptoms. Musculoskeletal: Reports: no symptoms. Skin: Reports: no symptoms. Neurological/Psychological: Reports: no symptoms. Hematologic/Endocrine: Reports: no symptoms. Immunologic/Allergic: Reports: no symptoms. Physical Exam Physical Exam General Appearance: alert, awake, anxious Head: atraumatic Eyes: Bilateral: normal appearance, PERRL, EOMI. Ears, Nose, Throat: normal ENT inspection Neck: normal inspection Respiratory: no respiratory distress Cardiovascular: regular rate/rhythm Back: normal range of motion Extremities: pedal edema Neurologic/Psych: awake, alert, oriented x 3 Skin: intact, normal color, warm/dry Core Measures ACS in differential dx? No CVA/TIA Diagnosis: No Sepsis Present: No Sepsis Focused Exam Completed? No Progress Differential Diagnoses I considered the following diagnoses in my evaluation of the patient: [Anemia, GI bleed] Plan of Care: Orders Procedure Date/time Status LEUKOCYTE POOR (PACKED CELLS) 03/16 1408 Active TROPONIN LEVEL 03/16 1227 Complete PARTIAL THROMBOPLASTIN TIME 03/16 122 Complete PROTHROMBIN TIME 03/16 122 Complete CBC WITHOUT DIFFERENTIAL 03/16 122 Complete BASIC METABOLIC PANEL 03/16 122 Complete TYPE & SCREEN (NOT X-MATCH) 03/16 122 Active Laboratory Tests 03/16/18 1230: Anion Gap 8, Estimated GFR > 60, BUN/Creatinine Ratio 17.5, Glucose 105 H, Calcium 8.6, Troponin I < 0.01, PT 11.7, INR 1.07, APTT 29, CBC w Diff MAN DIFF ORDERED, RBC 1.89 L, MCV 112.6 H, MCH 38.0 H, MCHC 33.7, RDW 21.0 H, MPV 10.6 H, Segmented Neutrophils 39 L, Band Neutrophils 3, Lymphocytes 51, Monocytes 3, Eosinophils 3, Basophils 1, Nucleated RBCs 1 H, Platelet Estimate ADEQUATE, Polychromasia 1+, Poikilocytosis FEW, Macrocytic Cells 1+, Ovalocytes FEW Initial ED EKG: none Departure Departure Disposition: HOME OR SELF CARE Condition: Stable Clinical Impression Primary Impression: Anemia Referrals: Keri CONNER,Analia Hooker (PCP/Family) Departure Forms: Customer Survey General Discharge Information Comments 03/16/18 I discussed the plan of care with Dr. Saavedra. The patient may be transfused as an outpatient. I gave the order for the transfusion and the patient was taken to the in-hospital transfusion center, to be given 2 units. She will follow-up with Dr. Saavedra this week. Critical Care Note Critical Care Note Critical Care Time: non-applicable
[2018-03-16 12:58] LABS: PT 11.7 SEC (9.4-12.5); PTT 29 SEC (25-37)
== END 2018-03-16 14:30 ==
LOC: ERH 11:53
PROVIDERS: Emergency Medicine
DX: D64.9 Anemia, unspecified (principal); J44.9 Chronic obstructive pulmonary disease, unspecified; K21.9 Gastro-esophageal reflux disease without esophagitis; M54.9 Dorsalgia, unspecified; G89.29 Other chronic pain; M81.0 Age-related osteoporosis without current pathological fracture; Z87.891 Personal history of nicotine dependence
CPT/HCPCS: 86920; P9016

== ENCOUNTER 2018-06-06 19:28 | Inpatient (IN) | payer OTHER ==
[~2018-06-06] VITALS: Ht 172.7 cm; Wt 113.4 kg
--- NOTE | 2018-06-06 19:38 | ED AMS/SEIZURE/WEAK/DIZZY ---
History of Present Illness General Chief Complaint: General Adult Stated Complaint: BIBA FOR GENERAL WEAKNESS MULTIPLE COMPL. Source: patient Exam Limitations: no limitations Vital Signs & Intake/Output Vital Signs & Intake/Output Vital Signs Date Time Temp Pulse Resp B/P B/P Pulse O2 O2 Flow FiO2 Mean Ox Delivery Rate 06/07 0200 97.8 67 18 170/74 93 Nasal 2.0L Cannula 06/07 0114 Nasal 2.0L Cannula 06/07 0019 98.2 70 20 142/62 95 Nasal Cannula 06/06 2258 98.7 70 18 119/53 98 Nasal 2.0L Cannula 06/06 2045 93 Nasal 2.0L Cannula 06/06 1930 98.7 80 18 174/70 87 Room Air ED Intake and Output 06/07 0000 06/06 1200 Intake Total 1000 Output Total Balance 1000 Intake, IV 1000 Patient 235 lb Weight Allergies Coded Allergies: aspirin (Intermediate, GI UPSET 06/06/18) gluten (Mild, GI UPSET 06/06/18) lactase (From DAIRY AID) (Mild, LACTOSE INTOLERANT 06/06/18) Reconcile Medications Albuterol Sulfate (Proair Hfa) 90 MCG HFA.AER.AD 2 PUF INH Q6H PRN RESPIRATORY (Reported) Budesonide/Formoterol Fumarate (Symbicort 160-4.5 Mcg Inhaler) 160 MCG-4.5 MCG/ ACTUATION HFA.AER.AD 2 PUF INH BID RESPIRATORY (Reported) Hydromorphone HCl 4 MG TABLET 1 TAB PO Q6H PRN PAIN (Reported) Ipratropium/Albuterol Sulfate (Combivent Respimat Inhal [place]) 20 MCG-100 MCG/ ACTUATION MIST.INHAL 1 PUFF INH 4XDAILY RESP. (Reported) Oxycodone HCl (Oxycontin) 20 MG TAB.ER.12H 1 TAB PO Q12H PAIN (Reported) Zolpidem Tartrate (Ambien) 5 MG TABLET 1 TAB PO QHS PRN PAIN (Reported) Triage Nurses Notes Reviewed? yes Onset: Gradual Duration: day(s): Timing: recent history Injury Environment: home Severity: moderate Associated Symptoms: weakness HPI: 72 YO WOMAN h/o "bone marrow cancer" finished revlimid yesterday, and presents with several days of weakness, shortness of breath, decreased oral intake, "burning all over," and subjective fevers. She shares that she has had "drains in my bottom," since October due to "abscesses." She notes no cough, phlegm, chest pain, diarrhea. Past History Travel History Traveled to [place] past 21 day No Medical History Any Pertinent Medical History? 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 No Review of Systems Review of Systems Constitutional: Reports: no symptoms. EENTM: Reports: no symptoms. Respiratory: Reports: no symptoms. Cardiovascular: Reports: no symptoms. GI: Reports: no symptoms. Genitourinary: Reports: no symptoms. Musculoskeletal: Reports: no symptoms. Skin: Reports: no symptoms. Neurological/Psychological: Reports: no symptoms. Hematologic/Endocrine: Reports: no symptoms. Immunologic/Allergic: Reports: no symptoms. All Other Systems: Reviewed and Negative Physical Exam Physical Exam General Appearance: well developed/nourished, mild distress Head: atraumatic, normal appearance Eyes: Bilateral: normal appearance. Ears, Nose, Throat: dry mucosa Neck: normal inspection, supple, full range of motion Respiratory: diminshed bilaterally Cardiovascular: regular rate/rhythm Gastrointestinal: soft, non-tender, no organomegaly Rectal: 2 blue aba-rectal drains, with mild-moderate tenderness, no kamran drainage, not fluctuant. Back: normal inspection Extremities: normal range of motion Neurologic/Psych: no motor/sensory deficits, awake, alert, oriented x 3 Skin: intact, normal color, warm/dry Core Measures ACS in differential dx? No CVA/TIA Diagnosis No Sepsis Present: No Sepsis Focused Exam Completed? No Progress Differential Diagnosis: sepsis, uti, PE, electrolyte abnormalities vs other. Plan of Care: Orders Procedure Date/time Status Regular Diet 06/07 B Active TROPONIN LEVEL 06/07 08 Active EKG 06/07 08 Active CBC WITHOUT DIFFERENTIAL 06/07 06 Active BASIC ELECTROLYTES PLUS BUN&CR 06/07 06 Active LOWER RESPIRATORY CULTURE 06/07 0102 Active TROPONIN LEVEL 06/07 0100 Complete EKG 06/07 0100 Active Weight 06/07 0016 Active Vital Signs 06/07 0016 Active Teach/Educate 06/076 Active Pain Treatment and Response 06/076 Active Nutritional Intake, Monitor 06/076 Active Isolation 06/07 0016 Active Intake & Output 06/07 0016 Active Patient Care Conference 06/07 0016 Active Activity/Ambulation 06/07 0016 Active MISSING MEDICATION FORM 06/07 UNK Active TRC EVALUATION (GEN) 06/06 2358 Active OXYGEN SETUP (GEN) 06/06 235 Active Saline Lock 06/06 2358 Active Pathway - chart 06/06 2358 Active House Staff 06/06 2358 Active BLOOD PRODUCT PICKUP 06/06 2336 Active LEUKOCYTE POOR (PACKED CELLS) 06/06 2152 Active Patient Data 06/06 2132 Active Saline Lock 06/06 211 Active Misc Message 06/06 2116 Active ED Holding Orders 06/06 2116 Active Admit to inpatient 06/06 2116 Active Vital Signs 06/06 2116 Active Code Status 06/06 2116 Active Intake & Output 06/06 2045 Active TYPE & SCREEN (NOT X-MATCH) 06/06 1944 Active CULTURE,URINE 06/06 1940 Active BLOOD CULTURE 06/06 1940 Active URINALYSIS 06/06 1940 Active TROPONIN LEVEL 06/06 194 Complete LIPASE 06/06 194 Complete LACTIC ACID 06/06 1940 Complete HEPATIC FUNCTION PANEL 06/06 1940 Complete CBC WITHOUT DIFFERENTIAL 06/06 1940 Complete BASIC METABOLIC PANEL 06/06 1940 Complete AMYLASE 06/06 194 Complete EKG 06/06 194 Active VTE Mechanical Prophylaxis 06/06 UNK Active Vital Signs 06/06 UNK Complete Precautions 06/06 UNK Active Intake & Output 06/06 UNK Complete Hemoccult 06/06 UNK Active Activity/Ambulation 06/06 UNK Active Current Medications Sig/Dontae Start time Last Medication Dose Stop Time Status Admin Budesonide/ 2 PUF BID 06/07 900 AC Formoterol Fumarate (Symbicort) Ceftazidime 2,000 MG IQ8 06/07 0800 AC (Fortaz) Heparin Sodium 5,000 UNIT Q8 06/07 0600 AC (Porcine) Melatonin 5 MG AT BEDTIME 06/07 004 AC 06/07 (Melatonin) 0245 Albuterol Sulfate 2 PUF Q6P PRN 06/07 0030 AC (Ventolin) Hydromorphone HCl 1 MG Q6P PRN 06/07 003 AC 06/07 (Dilaudid) 005 Oxycodone HCl 20 MG Q12H 06/07 003 AC 06/07 (OxyCONTIN) 0047 Laboratory Tests 06/07/18 0155: Troponin I 0.16 *H 06/06/18 2240: Lactic Acid Cancelled 06/06/182008: Anion Gap 9, Estimated GFR > 60, BUN/Creatinine Ratio 15.0, Glucose 147 H, Lactic Acid 1.4, Calcium 8.1 L, Total Bilirubin 1.4 H, Direct Bilirubin 0.6 H , AST 76 H, ALT 85 H, Alkaline Phosphatase 100, Troponin I 0.15 *H, Total Protein 6.4, Albumin 3.3 L, Amylase 32, Lipase 48, CBC w Diff MAN DIFF ORDERED, RBC 2.07 L, MCV 108.1 H, MCH 35.9 H, MCHC 33.2, RDW 27.7 H, MPV 10.2, Gran % 17.1 L, Lymphocytes % 73.0 H, Monocytes % 9.5 H, Eosinophils % 0.4, Basophils % 0, Absolute Granulocytes 0.2 L, Segmented Neutrophils 26 L, Band Neutrophils 3, Absolute Lymphocytes 1.0 L, Lymphocytes 58 H, Monocytes 3, Absolute Monocytes 0.1, Eosinophils 9 H, Absolute Eosinophils 0, Basophils 1, Absolute Basophils 0, Platelet Estimate DECREASED, Hypochromic-Microcytic 1+, Poikilocytosis 1+, Anisocytosis 2+, Microcytic Cells 1+, Macrocytic Cells 2+, Ovalocytes FEW, Stomatocytes FEW, [place] Cells FEW, Elliptocytes 1+, Schistocytes FEW Microbiology 06/07 015 BLOOD: Blood Culture - RECD 06/07 102 LOWER RESP: Respiratory Culture - ORD 06/07 102 LOWER RESP: Gram Stain - ORD 06/06 2008 BLOOD: Blood Culture - RECD 06/06 1940 URINE ROUT: Urine Culture - ORD Diagnostic Imaging: Viewed by Me: CT Scan. Discussed w/RAD: CT Scan. Initial ED EKG: normal axis, normal intervals, normal p-waves, normal QRS complex, normal sinus rhythm Departure Departure Disposition: STILL A PATIENT Condition: Stable Clinical Impression Primary Impression: Hypoxia Secondary Impressions: Anemia, Elevated troponin, Neutropenia, Thrombocytopenia Referrals: Selena CONNER,Analia Hooker (PCP/Family) Departure Forms: Customer Survey General Discharge Information Comments 06/06/18, 21:28... discussed with dr. eller... will transfuse given +trop, give vanc/ceftaz. blood transfusion consent signed and is in chart. discussed at length with family. call placed with [facility] Admission Note Spoke With: Bethel Cerda MD Documentation of Exam: Documentation of any treatments & extenuating circumstances including Concerns Regarding Discharge (functional status, medication knowledge or non-compliance, living conditions, etc.) that warrant an admission rather than observation: pt with several issues: +troponin, neutropenic, gluteal tenderness with indwelling drains... merits multisystemic coordination of care: delmar latham, gen surg. Critical Care Note Critical Care Note Critical Care Time: 30-74 min
[2018-06-06 20:18] LABS: ABSOLUTE BASOPHIL COUNT 0 /CUMM (0.0-0.2); ABSOLUTE EOSINOPHIL COUNT 0 /CUMM (0.0-0.7); ABSOLUTE GRANULOCYTE CT 0.2 /CUMM (1.4-6.5); ABSOLUTE MONOCYTE COUNT 0.1 /CUMM (0.10-0.60); BASOPHIL % 0 % (0.0-2.0); EOSINOPHIL % 0.4 % (0-5); HEMATOCRIT 22.4 % (37-47); MEAN CORPUSCULAR HGB 35.9 PG (27.0-31.0); MEAN CORPUSCULAR HGB CONC 33.2 G/DL (33.0-37.0); MEAN CORPUSCULAR VOLUME 108.1 FL (81.0-99.0); MEAN PLATELET VOLUME 10.2 FL (7.4-10.4); PLATELET COUNT 50 /CUMM (130-400); RBC DISTRIBUTION WIDTH 27.7 % (11.5-14.5); RED BLOOD CELL CT 2.07 /CUMM (4.20-5.40)
[2018-06-06 20:28] LABS: GRANULOCYTE % 17.1 % (42.2-75.2)
[2018-06-06 20:51] LABS: WHITE BLOOD CELL COUNT 1.4 /CUMM (4.8-10.8)
--- NOTE | 2018-06-06 21:51 | History & Physical ---
Giorgi Mayes 06/06/18 5210: General Information and HPI History of Present Illness: Naveen Payton is a 72 YO female with PMHx. 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 Noyola, and rachel medina presents to the ED with a chief complaint of "weakness and shortness of breath." Patient states that she has recently needed a few transfusions for low blood counts and ever since her transfusions she has been experiencing heart flutters. Patient also notes peripheral edema, most notably left-sided leg swelling. Patient also notes dyspnea but denies specifically any chest pain or palpitations. Patient also notes recurring leg pains at night during sleep. Patient states she was diagnosed with Myelodysplastic syndrome in the previous month. Patient had been on Revlimid for MDS therapy. Patient denies any history of smoking tobacco. Patient denies consuming alcoholic beverages. Patient follows up with her PCP Dr. Walters and Oncologist Dr. John Cuevas. Past History Travel History Traveled to [place] past 21 day No Medical History EENT: allergies Cardiovascular: hypertension Respiratory: asthma, pneumonia Gastrointestinal: GERD, ULCERS Hepatic: NONE Renal: NONE Musculoskeletal: chronic back pain, osteoarthritis Psychiatric: NONE Endocrine: NONE Blood Disorders: NONE Cancer(s): rectal ca MANAGER OF ADMINISTRATION/Reproductive: NONE Other Medical Hx: rectal CA, presacral abscess, colovaginal fistula History of MRSA: No History of VRE: No History of CDIFF: No Influenza Vaccine: 11/12/17 Surgical History Surgical History: hernia repair-ventral, lower anterior resection with diverting ileostomy 2006 reversal in 2006 with creation of an ileostomy and subsequent reversal in tonsillectomy diverting loop ileostomy Past Family/Social History Psychosocial History Who Do You Live With? spouse Services at Home: None Functional Ability ADLs Independent: dressing, eating, toileting, bathing. Ambulation: independent IADLs Independent: shopping, housework, finances, food prep, telephone, transportation , medication admin. Review of Systems Review of Systems Constitutional: Reports: fever, weakness. Denies: chills, diaphoresis, malaise. EENTM: Denies: visual changes. Cardiovascular: Reports: edema, palpitations (fluttering). Denies: chest pain. Respiratory: Reports: short of breath. Denies: cough, orthopnea, sputum production. GI: Denies: abdominal pain, diarrhea, nausea. Genitourinary: Denies: dysuria, frequency. Musculoskeletal: Reports: back pain. Neurological/Psychological: Denies: numbness, tingling. Exam & Diagnostic Data Last 24 Hrs of Vital Signs/I&O Vital Signs Date Time Temp Pulse Resp B/P B/P Pulse O2 O2 Flow FiO2 Mean Ox Delivery Rate 06/07 0200 97.8 67 18 170/74 93 Nasal 2.0L Cannula 06/07 0114 Nasal 2.0L Cannula 06/07 0019 98.2 70 20 142/62 95 Nasal Cannula 06/06 2258 98.7 70 18 119/53 98 Nasal 2.0L Cannula 06/06 2045 93 Nasal 2.0L Cannula 06/06 1930 98.7 80 18 174/70 87 Room Air Intake & Output 06/07 0800 06/07 0000 06/06 1600 Intake Total 1000 Output Total Balance 1000 Intake, IV 1000 Patient 256 lb 235 lb Weight Weight Bed scale Measurement Method Physical Exam General Appearance Alert, Oriented X3, Cooperative, No Acute Distress Skin No Rashes HEENT Atraumatic, PERRLA Neck Supple, No JVD Lymphatic Cervical nl Cardiovascular Normal S1, Normal S2 Lungs Clear to Auscultation Abdomen Soft, No Tenderness Neurological Strength at 5/5 X4 Ext, Normal Tone, Sensation Intact Extremities Normal Pulses (mild swelling in LE) Vascular Pulses Symmetrical Assessment/Plan Assessment: Assessment: 1. Anemia 2. Unstable Angina, ACS 3. h/o rectal cancer s/p neoadjuvant chemoradiation therapy 4. h/o asthma/COPD 5. h/o HTN Plan: * Anemia - Secondary to myelodysplastic syndrome via ineffective hematopoeiesis - Maintain Hgb > 7 g/dL via pRBC transfusions - Follow neutropenic precautions, latest ANC 0.2 - AM Heme/Onc consult with Dr. John Cuevas * Unstable Angina - Admit to telemetry for cardiac monitoring and assessment of vitals - AM Cardiology Consult with Dr. Cheatham - Serial EKG and Troponins (follow at 8 AM) - IV Heparin based on recommendation received from edge stainer - Await recommendation for ECHO to evaluate structure and function of heart muscle - Chest CTA: 1. Moderate to severe pulmonary emphysema. No acute intrathoracic findings. No evidence of pulmonary embolism. 2. Gallbladder wall thickening and a small amount of pericholecystic fluid. No radiodense stones are identified, though gallstones may be better seen by ultrasound. Consider correlation with right upper quadrant ultrasound to exclude cholelithiasis and acute cholecystitis. 3. No significant change in the presacral collection and 2 drainage tubes. The collection contains gas and a small amount of fluid. VTE: negative - DVT PPx. As Ranked By This Provider Problem List: 1. Elevated troponin 2. Symptomatic anemia 3. Neutropenia 4. Thrombocytopenia Core Measures/Misc (08/16) Acute Coronary Syndrome ACS Diagnosis: Yes Congestive Heart Failure Congestive Heart Failure Diagnosis No Cerebrovascular Accident CVA/TIA Diagnosis: No VTE (View Protocol) VTE Risk Factors Acute Medical Illness No Mechanical VTE Prophylaxis d/t N/A MechProphylax Ordered No VTE Pharm Prophylaxis d/t NA PharmProphylax ordered Sepsis (View protocol) Sepsis Present: No If YES complete Sepsis Event Note If YES complete Sepsis Event Note Renzo Agee 06/06/18 4410: Assessment/Plan Assessment: Discussed w/ Dr. Mayorga Core Measures/Misc (08/16) Sepsis (View protocol) If YES complete Sepsis Event Note If YES complete Sepsis Event Note Resident Review Statement Resident Statement: examined this patient, discussed with internal control analyst Other Findings: Ms Payton is a 72 year old woman w/ a PMHx of MDS ( dx'ed 11/15 tx w/ Lenalidomide ? 5q deletion), hypertension, asthma,, chronic back pain, osteoarthritis, colorectal Ca w/ previos complications resulting in presacral abscess, colovaginal fistula, lower anterior resection with diverting ileostomy 2005 reversal in 2006 with creation of an ileostomy and subsequent reversal in 2005, s/p now colostomy bag in place, came to the hospital with a chief concern of acute onset of dyspnea at rest, decreased p.o. intake and fever (did not record temperature), also reported being orthostatically dizzy. At the time of admission-temperature 90.7, pulse rate 80, respiration 18, blood pressure 174/70, pulse ox 87% on room air-->90% on 2 L nasal cannula. General Exam: AAOx3,mild distress, Skin: No rashes, no breakdown;HEENT: PERRLA, EOMI;Neck: Supple, No JVD ; No cervical lymphadenopathy;CVS: Reg Rate, Normal S1 ,S2, No MGR;Resp: Normal air entry, no ronchi/rales;Abdomen: Soft, No tenderness , Normal Bowel Sounds, has colostomy bag in place;Neuro: Normal Speech, Strength 5/5 b/l x 4 extremities, Sensation intact, CN III-XII NL, Reflexes 2+; Extremities: No cyanosis, no pedal edema. CT abdomen and CTA- 1. Moderate to severe pulmonary emphysema. No acute intrathoracic findings. No evidence of pulmonary embolism. 2. Gallbladder wall thickening and a small amount of pericholecystic fluid.No radiodense stones are identified, though gallstones may be better seen byultrasound. Consider correlation with right upper quadrant ultrasound toexclude cholelithiasis and acute cholecystitis. 3. No significant change in the presacral collection and 2 drainage tubes.The collection contains gas and a small amount of fluid. VTE: negative. Pertinent lab findings WBC 1.4, absolute neutrophil count around 200. Hemoglobin 7.4, hematocrit 22.4, MCV 108. Platelet count 50. Sodium 136, potassium 4.5, bicarbonate 26, anion gap 9 Renal function-BUN 12, creatinine 0.8. Calcium 8.1, albumin 3.3 corrected calcium- Troponin I 0.15 AST 76, ALT 85, alkaline phosphatase 100. Total Bilirubin 1.4 Urinalysis pending Blood cultures, urine cultures, LRC pending hemoccult positive. Problem list: #1 Neutropenia ( ~ ANC 230) #2 anemia, thrombocytopenia #3 MDS w/ possible 5q del #3 possible type II [place] Plan: -Monitor vitals closely -Serial EKGs and troponins -Neutropenic precautions -Ceftazidime 2gm. DC if no afebrile, and culture negative -If the patient has any fever of 100.4 > 1 hour, or temperature 101, it should be considered as neutropenic fever, please restart abx, if discontinued. -C BC in the a.m. -Hematology consult -Consider surgical consult -IV heparin as per cards. Pt deferred the decision to the varitype operator. -Transfusion to keep the Hb>8, given elevated trops. -Consider neupogen, but unclear if there is any mortality benefit; that said, decreaes hospital stay. -Check retic count. -Aggressive pain management w/ iv dialuadid for now, change to po in the am. - She had low platelets, and also had GI bleed, start ASA+heparin as per recs from hem. Full code Heart healthy diet Discussed with Dr. Mayorga, and the decision was made to start intravenous heparin. Discussed the plan with the patient. Upon checking the Hemoccult/ guaiac it was found that she was guaiac positive. As per MsKaden Emigdio, she wanted to discuss the risks versus benefits of using intravenous heparin after she sees Dr. Cuevas in a.m, given her clinical condition. Informed the attending. Bethel Cerda MD 06/07/18 0155: General Information and HPI MD Statement: I have seen and personally examined NAVEEN PAYTON and documented this H&P. The patient is a 72 year old F who presented with a patient stated chief complaint of []. Allergies/Medications Allergies: Coded Allergies: aspirin (Intermediate, GI UPSET 06/06/18) gluten (Mild, GI UPSET 06/06/18) lactase (From DAIRY AID) (Mild, LACTOSE INTOLERANT 06/06/18) Home Med list Albuterol Sulfate (Proair Hfa) 90 MCG HFA.AER.AD 2 PUF INH Q6H PRN RESPIRATORY (Reported) Budesonide/Formoterol Fumarate (Symbicort 160-4.5 Mcg Inhaler) 160 MCG-4.5 MCG/ ACTUATION HFA.AER.AD 2 PUF INH BID RESPIRATORY (Reported) Hydromorphone HCl 4 MG TABLET 1 TAB PO Q6H PRN PAIN (Reported) Ipratropium/Albuterol Sulfate (Combivent Respimat Inhal [place]) 20 MCG-100 MCG/ ACTUATION MIST.INHAL 1 PUFF INH 4XDAILY RESP. (Reported) Oxycodone HCl (Oxycontin) 20 MG TAB.ER.12H 1 TAB PO Q12H PAIN (Reported) Zolpidem Tartrate (Ambien) 5 MG TABLET 1 TAB PO QHS PRN PAIN (Reported) Past History Medical History Cardiovascular: hypertension Respiratory: asthma, pneumonia Gastrointestinal: GERD Musculoskeletal: chronic back pain, osteoarthritis Surgical History Surgical History: hernia repair-ventral, lower anterior resection with diverting ileostomy 2006 reversal in 2006 with creation of an ileostomy and subsequent reversal in tonsillectomy diverting loop ileostomy Past Family/Social History Psychosocial History Who Do You Live With? spouse Services at Home: None Smoking Status: Former Smoker ETOH Use: denies use Illicit Drug Use: denies illicit drug use Employment History Employment Retired Review of Systems Comments 12 point review of systems positive findings on HPI Exam & Diagnostic Data Last 24 Hrs of Vital Signs/I&O Vital Signs Date Time Temp Pulse Resp B/P B/P Pulse O2 O2 Flow FiO2 Mean Ox Delivery Rate 06/07 0114 Nasal 2.0L Cannula 06/07 0019 98.2 70 20 142/62 95 Nasal Cannula 06/06 2258 98.7 70 18 119/53 98 Nasal 2.0L Cannula 06/06 2045 93 Nasal 2.0L Cannula 06/06 1930 98.7 80 18 174/70 87 Room Air Intake & Output 06/07 0800 06/07 0000 06/06 1600 Intake Total 1000 Output Total Balance 1000 Intake, IV 1000 Patient 256 lb 235 lb Weight Weight Bed scale Measurement Method Physical Exam General Appearance Alert, Oriented X3, Cooperative, No Acute Distress Skin No Rashes HEENT Atraumatic, PERRLA, EOMI Neck Supple Cardiovascular Regular Rate, Normal S1, Normal S2 Lungs Clear to Auscultation, Normal Air Movement Abdomen Normal Bowel Sounds, Soft, No Tenderness Last 24 Hrs of Labs/Dar: Laboratory Tests 06/06/182008: Anion Gap 9, Estimated GFR > 60, BUN/Creatinine Ratio 15.0, Glucose 147 H, Lactic Acid 1.4, Calcium 8.1 L, Total Bilirubin 1.4 H, Direct Bilirubin 0.6 H , AST 76 H, ALT 85 H, Alkaline Phosphatase 100, Troponin I 0.15 *H, Total Protein 6.4, Albumin 3.3 L, Amylase 32, Lipase 48, CBC w Diff MAN DIFF ORDERED, RBC 2.07 L, MCV 108.1 H, MCH 35.9 H, MCHC 33.2, RDW 27.7 H, MPV 10.2, Gran % 17.1 L, Lymphocytes % 73.0 H, Monocytes % 9.5 H, Eosinophils % 0.4, Basophils % 0, Absolute Granulocytes 0.2 L, Segmented Neutrophils 26 L, Band Neutrophils 3, Absolute Lymphocytes 1.0 L, Lymphocytes 58 H, Monocytes 3, Absolute Monocytes 0.1, Eosinophils 9 H, Absolute Eosinophils 0, Basophils 1, Absolute Basophils 0, Platelet Estimate DECREASED, Hypochromic-Microcytic 1+, Poikilocytosis 1+, Anisocytosis 2+, Microcytic Cells 1+, Macrocytic Cells 2+, Ovalocytes FEW, Stomatocytes FEW, [place] Cells FEW, Elliptocytes 1+, Schistocytes FEW Microbiology 06/07 102 LOWER RESP: Respiratory Culture - ORD 06/07 102 LOWER RESP: Gram Stain - ORD 06/06 2008 BLOOD: Blood Culture - RECD 06/06 1940 URINE ROUT: Urine Culture - ORD 06/06 1940 BLOOD: Blood Culture - COLB Core Measures/Misc (08/16) Sepsis (View protocol) If YES complete Sepsis Event Note If YES complete Sepsis Event Note Attending MD Review Statement Attending Statement Attending MD Statement: examined this patient, discuss w/resident/PA/COPPERSMITH HELPER, amended to note Attending Assessment/Plan: This patient is a 72-year-old female with a significant past medical history for HTN, asthma/ COPD, GERD, rectal cancer s/p neoadjuvant chemoradiation therapy followed by LAR with diverting loop ileostomy and ileostomy reversal (2006), 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 The patient presented to the ED with a chief complaint of "weakness and shortness of breath." She is afebrile and neutropenic. Empiric Neutropenic fever treatment was started in the emergency department with ceftaz and vancomycin. If she remains afebrile can discontinue and follow off antibiotics. Patient will get a follow-up with hematology oncology.
--- NOTE | 2018-06-06 22:26 | CT SCAN REPORT ---
EXAMINATION: CT ANGIOGRAM OF THE CHEST WITH CONTRAST (CT PULMONARY ANGIOGRAM FOR PE) CT ABDOMEN PELVIS WITH CONTRAST CLINICAL INFORMATION: Gluteal drains. Question perirectal abscess. Cancer. Hypoxic. COMPARISON: CT abdomen pelvis dated 03/31/[address] chest dated 12/09/2016 TECHNIQUE: Prior to contrast administration, noncontrast localization images were obtained. Subsequently, multidetector volumetric imaging was performed from the thoracic inlet to below the diaphragms following the administration of 95 mL Optiray 320 intravenous contrast during the pulmonary arterial phase of enhancement. Images were then obtained from the diaphragms through the ischial tuberosities during the portal venous phase of enhancement. No contrast reaction reported. Sagittal, coronal, and MIP oblique sagittal reformatted images were obtained on the CT workstation, uploaded to PACS, and reviewed. Total exam dose-length product 1526 mGy-cm. FINDINGS: CHEST: QUALITY OF STUDY/CONTRAST BOLUS: Satisfactory PULMONARY ARTERIES: No central or segmental pulmonary emboli. THORACIC AORTA: Calcific atherosclerosis is present. No aneurysmal dilatation or dissection. LUNG: Severe emphysema is present in the upper lobes. There is more moderate emphysema in the right middle and lower lobes. No pulmonary consolidations. Central airways are patent. No bronchiectasis. No pulmonary nodules. A perifissural nodule is present along the right minor fissure anteriorly. PLEURA: No pleural effusion or pneumothorax. MEDIASTINUM: Normal heart size. No pericardial effusion. No hilar or mediastinal lymphadenopathy. Calcific atherosclerosis is present of the coronary arteries. CHEST WALL/AXILLA: No axillary or internal mammary lymphadenopathy. OSSEOUS STRUCTURES: Mild multilevel degenerative disc disease in the thoracic spine. No fracture or malalignment. ABDOMEN AND PELVIS: LIVER, GALLBLADDER, BILIARY TREE: The liver is normal in size, shape, and attenuation. No focal hepatic lesion or biliary ductal dilatation is present. There is mild gallbladder wall thickening and pericholecystic fluid. No radiodense gallstones. Common bile duct is normal in caliber. PANCREAS: Unremarkable. SPLEEN: Unremarkable. ADRENAL GLANDS: Normal. KIDNEYS AND URETERS: The kidneys are normal in shape and enhancement. Mild cortical thinning is present in the left kidney, suggesting mild atrophy. No hydronephrosis, hydroureter, or calculi seen. No perinephric stranding. BLADDER: Normal. GASTROINTESTINAL TRACT: Stomach, small bowel, and colon are normal in caliber. There is a loop ileostomy in the right mid abdomen. Numerous loops of small bowel have herniated through the abdomen into the subcutaneous fat. No evidence of strangulation are workstation. Bowel is normal in caliber. No intraperitoneal free fluid or free air. The colon is largely decompressed. Postsurgical changes are present around the expected location of the distal rectum and anus. 2 drainage tubes extend into a ill-defined presacral collection. There is a 6.7 x 2.8 x 6.3 cm (transverse by AP by craniocaudal) area of heterogeneous soft tissue attenuation and gas in the presacral collection. A small amount of fluid may be present. The size of the collection is now significantly changed from prior. No new collections are identified. ABDOMINAL WALL: As mentioned above, there is a parastomal hernia in the right mid abdomen at the site of the loop ileostomy. LYMPHOVASCULAR STRUCTURES: Calcific atherosclerosis is present in the abdominal aorta and iliac arteries. No aneurysmal dilatation. No adenopathy.. PELVIC VISCERA: Uterus appears relatively diminutive. Ovaries are not not well seen. OSSEOUS STRUCTURES: Mild degenerative disc disease present in the lumbar spine. Cortical thickening and irregularity at the anterior margin of the sacrum is likely reactive to the overlying collection. No acute osteomyelitis is suspected. IMPRESSION: 1. Moderate to severe pulmonary emphysema. No acute intrathoracic findings. No evidence of pulmonary embolism. 2. Gallbladder wall thickening and a small amount of pericholecystic fluid. No radiodense stones are identified, though gallstones may be better seen by ultrasound. Consider correlation with right upper quadrant ultrasound to exclude cholelithiasis and acute cholecystitis. 3. No significant change in the presacral collection and 2 drainage tubes. The collection contains gas and a small amount of fluid. VTE: negative
[2018-06-07 00:19] VITALS: BP 142/62
[2018-06-07 02:00] VITALS: BP 170/74
--- NOTE | 2018-06-07 06:44 | PN- Housestaff ---
Lola Sheridan 06/07/18 0644: Subjective Follow-up For: Elevated trops, pancytopenia Complaints: B/L Lower legs pain Tele-Events Since Last Visit: nsr. 57-74. Subjective: Complains of B/L L/L pain that was 9/10 overnight and sge could not sleep. Pt has had a bad L/L pain for the past one year) Review of Systems Constitutional: Reports: see HPI. Objective Last 24 Hrs of Vital Signs/I&O Vital Signs Date Time Temp Pulse Resp B/P B/P Pulse O2 O2 Flow FiO2 Mean Ox Delivery Rate 06/07 1424 97.5 64 18 114/58 93 Nasal 2.0L Cannula 06/07 1055 Nasal 2.0L Cannula 06/07 0800 Room Air 06/07 0200 97.8 67 18 170/74 93 Nasal 2.0L Cannula 06/07 0114 Nasal 2.0L Cannula 06/07 0019 98.2 70 20 142/62 95 Nasal Cannula 06/06 2258 98.7 70 18 119/53 98 Nasal 2.0L Cannula 06/06 2045 93 Nasal 2.0L Cannula 06/06 1930 98.7 80 18 174/70 87 Room Air Intake & Output 06/07 1600 09 0800 07/ 0000 Intake Total 720 1000 Output Total Balance 720 1000 Intake, Blood 500 Product Intake, IV 1000 Intake, Oral 220 Patient 256 lb 235 lb Weight Weight Bed scale Measurement Method Physical Exam General Appearance: Alert, Oriented X3, Cooperative, Mild Distress, b/l leg pain Skin: No Rashes, No Breakdown, No Significant Lesion Skin Temp/Moisture Exam: Cool/Dry HEENT: Atraumatic, PERRLA Neck: Supple Cardiovascular: Regular Rate, Normal S1, Normal S2, No Murmurs Lungs: Clear to Auscultation, Normal Air Movement Abdomen: Ileostomy bag seen Neurological: Normal Speech Assessment/Plan Assessment: Is a 72-year-old woman with a past medical history of COPD, hypertension, rectal carcinoma, myelodysplastic syndrome, anemia requiring transfusion. She presented with symptoms of weakness and shortness of breath. Her troponins were elevated mildly and significant hypoxia with underlying anemia. Vitals: Temp 97.8, pulse 67, respiration 18, 1 70 x 74, 93% on 2 L oxygen Labs: WBC 1.8, RBC 2.28, hemoglobin 8.1, hematocrit 24.2, platelets 39, sodium 140, potassium 4.5, chloride 105, bicarb 25, anion gap 9, BUN 10, creatinine 0.7 Troponins: 0.15----0.16----0.09 Telemetry: Normal sinus rhythm heart rate 57-74 Venous doppler Study Lower ext: No evidence of deep venous thrombosis involving the bilateral lower extremities. Abd US. No evidence of pancreatic pathology. 2. Diffusely echogenic liver raising question of hepatic steatosis. No mass lesions identified to suggest metastatic rectal cancer. 3. Thickened, edematous gallbladder wall without intraluminal stones identified, which is nonspecific. However, the pericholecystic fat appeared somewhat indurated on the recent CT. Early acalculus cholecystitis cannot be excluded. Plan: #cardiology consult #Aspirin and anticoag (heparin) therapy due to thrombocytopenia #Statin regimen #Beta-lolita: Carvedilol, if not tolerated you can consider amlodipine for blood pressure control #Nuclear testing as an outpatient #Echo #Venous doppler Study Lower ext today #MDS/anemia: Heam consult #Right upper quadrant ultrasound #GI consult placed for transaminitis and pericholecystic fluid #PT consult Problem List: 1. Leukopenia 2. Anemia 3. Thrombocytopenia 4. MDS (myelodysplastic syndrome) with 5q deletion 5. Elevated troponin 6. Lower extremity pain, bilateral Pain Ratin Pain Location: b/l l/l Pain Goal: Pain 4 or less Pain Plan: Dilaudid injection 1 mg every 4 hours Oxycodone CR tablet q. 8, 20 mg Tomorrow's Labs & Rationales: cbc, bep, lfts Theron Lock MDvenkata 06/07/18 1137: Attending MD Review Statement Attending Statement Attending MD Statement: examined this patient, discuss w/resident/PA/[employer], agreed w/resident/PA/SUPERVIS[employer], reviewed EMR data (avail), discussed with nursing, discussed with case mgmt, amended to note Attending Assessment/Plan: Patient seen and examined. Resting comfortably not in any acute distress. No issues overnight reported by nursing staff. No events on telemetry monitoring. She remains in normal sinus rhythm. She is afebrile and hemodynamically stable. She denies any chest pain currently. She complains of chronic lower extremity pain. On examination she has bilateral pedal edema 1+. No no cyanosis or other discoloration. Hemoglobin level has improved following transfusion overnight. Fortunately. Count has dropped from 50,000-39,000 today. She has no evidence of overt bleeding. Problems: 1. Abnormal troponins 2. Pancytopenia 3. Myelodysplastic syndrome 4. Transaminitis Plan: - the level of his troponin elevation and a quick trend downwards is not typically consistent of a myocardial infarction. She denies any chest pain. EKG does not show any ischemic changes. Follow-up echocardiogram to rule out wall motion abnormalities. -Add fasting lipid panel to his labs. -Follow-up with the cardiology service regarding adding low-dose beta-lolita therapy. -Will hold off aspirin and anticoagulation therapy for now given his significant thrombocytopenia -Transfuse to keep hemoglobin level greater than 8. -Follow-up lower extremity Dopplers to rule out deep vein thrombosis. -Management of his MDS as directed by the hematology service. -Follow-up right upper quadrant sonogram and GI consultation.
--- NOTE | 2018-06-07 07:52 | Cons- Hematology ---
General Information and HPI Consulting Request Date of Consult: 06/07/18 Requested By: Bethel Cerda MD Reason for Consult: MDS, pancytopenia Source of Information: patient, old records Exam Limitations: no limitations History of Present Illness: Ms. 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 She has not been feeling well for the past 1 week or so. She finished her lenalidomide the day prior. She has been having diffuse myalgia. Pain has improved but still persistent in her legs. She has had significant fatigue. She has been feeling hot. She did not check her temperature regularly. The highest temperature was 99F for her. She denies any chest pain. She denies any palpitation. She did have some nausea. She denies any changes in her stool. On presentation, she was noted to be afebrile. Blood work demonstrated WBC of 1400, hemoglobin of 7.4 with hematocrit of 22.4, and platelet count of 50,000. CTA was negative for PE. She did have an elevated troponin at 0.15 with the level being 0.16 on repeated evaluation. She was given empiric antibiotic with vancomycin and ceftazidime. She was givne aspirin. She still has leg pain this morning. She continues to have some shortness of breath and fatigue. She denies any nausea. She has no chest pain. Allergies/Medications Allergies: Coded Allergies: aspirin (Intermediate, GI UPSET 06/06/18) gluten (Mild, GI UPSET 06/06/18) lactase (From DAIRY AID) (Mild, LACTOSE INTOLERANT 06/06/18) Home Med List: Albuterol Sulfate (Proair Hfa) 90 MCG HFA.AER.AD 2 PUF INH Q6H PRN RESPIRATORY (Reported) Budesonide/Formoterol Fumarate (Symbicort 160-4.5 Mcg Inhaler) 160 MCG-4.5 MCG/ ACTUATION HFA.AER.AD 2 PUF INH BID RESPIRATORY (Reported) Hydromorphone HCl 4 MG TABLET 1 TAB PO Q6H PRN PAIN (Reported) Ipratropium/Albuterol Sulfate (Combivent Respimat Inhal [place]mage) 20 MCG-100 MCG/ ACTUATION MIST.INHAL 1 PUFF INH 4XDAILY RESP. (Reported) Oxycodone HCl (Oxycontin) 20 MG TAB.ER.12H 1 TAB PO Q12H PAIN (Reported) Zolpidem Tartrate (Ambien) 5 MG TABLET 1 TAB PO QHS PRN PAIN (Reported) Current Medications: Current Medications Sig/Dontae Start time Last Medication Dose Route Stop Time Status Admin Albuterol Sulfate 2 PUF Q6P PRN 06/07 0030 AC INH Aspirin 81 MG DAILY 06/07 900 CAN PO Aspirin 0 .STK-MED ONE 06/06 2103 DC PO Aspirin 325 MG ONCE ONE 06/06 2100 DC 06/06 PO 06/06 2101 2140 Budesonide/ 2 PUF BID 06/07 900 AC Formoterol Fumarate INH Ceftazidime 2,000 MG IQ8 06/07 0800 AC IV Ceftazidime 1,000 MG ONCE ONE 06/07 0030 DC 06/07 IV 06/07 0031 0535 Ceftazidime 0 .STK-MED ONE 06/06 2252 DC .ROUTE Ceftazidime 1,000 MG ONCE ONE 06/06 2130 DC 06/06 IV 06/06 2131 2315 Heparin Sodium 5,000 UNIT Q8 06/07 0600 DC 06/07 (Porcine) SC 0541 Hydromorphone HCl 1 MG Q6P PRN 06/07 0030 AC 06/07 IV 0053 Melatonin 5 MG AT BEDTIME 06/07 0045 AC 06/07 PO 0245 Oxycodone HCl 20 MG Q12H 06/07 0030 AC 06/07 PO 0047 Sodium Chloride 1,000 ML BOLUS ONE 06/06 1945 DC 06/06 IV 06/06 2044 2100 Vancomycin HCl 1,000 MG ONCE ONE 06/06 2130 DC 06/06 Sodium Chloride 250 ML IV 06/06 2229 2315 Zolpidem Tartrate 5 MG .[BEDTIME] PRN 06/07 0030 DC PO Review of Systems Review of Systems Constitutional: Reports: fever, malaise, weakness. Denies: chills. EENTM: Denies: double vision, visual changes. Cardiovascular: Denies: chest pain. Respiratory: Reports: short of breath. Denies: cough, hemoptysis. GI: Reports: nausea. Denies: abdominal pain, diarrhea, melena, bloody stool, vomiting. Genitourinary: Denies: dysuria. Musculoskeletal: Denies: back pain. Skin: Denies: jaundice. Neurological/Psychological: Denies: anxiety, confusion. Hematologic/Endocrine: Denies: bruising, bleeding. Immunologic/Allergic: Denies: lymphadenopathy. 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 Home Who Do You Live With? spouse Services at Home: None Smoking Status: Former Smoker ETOH Use: denies use Illicit Drug Use: denies illicit drug use Functional Ability ADLs Independent: dressing, eating, toileting, bathing. Ambulation: independent IADLs Independent: shopping, housework, finances, food prep, telephone, transportation , medication admin. Employment History Employment: Retired Exam & Diagnostic Data Vital Signs and I&O Vital Signs Date Time Temp Pulse Resp B/P B/P Pulse O2 O2 Flow FiO2 Mean Ox Delivery Rate 06/07 0200 97.8 67 18 170/74 93 Nasal 2.0L Cannula 06/07 0114 Nasal 2.0L Cannula 06/07 0019 98.2 70 20 142/62 95 Nasal Cannula 06/06 2258 98.7 70 18 119/53 98 Nasal 2.0L Cannula 06/065 93 Nasal 2.0L Cannula 06/06 1930 98.7 80 18 174/70 87 Room Air Intake & Output 06/07 0800 06/07 0000 06/06 1600 Intake Total 720 1000 Output Total Balance 720 1000 Intake, Blood 500 Product Intake, IV 1000 Intake, Oral 220 Patient 116.176 kg 106.594 kg Weight Weight Bed scale Measurement Method Physical Exam General Appearance: well developed/nourished, no apparent distress, alert, awake , comfortable, obese Head: atraumatic, normal appearance Eyes: Bilateral: PERRL, EOMI. Ears, Nose, Throat: normal pharynx Neck: supple Respiratory: chest non-tender, no respiratory distress, quiet respiration, ON 2L NC Cardiovascular: regular rate/rhythm Gastrointestinal: soft, non-tender, no organomegaly Extremities: no edema, tenderness (diffusely in BLE) Neurologic/Psych: awake, alert, oriented x 3 Cranial Nerves: normal speech Lymphatic: no anterior cervical pricilla Last 48 Hours of Lab Results: Laboratory Tests 06/07 06/07 06/06 0714 0155 2240 Chemistry Sodium Pending Potassium Pending Chloride Pending Carbon Dioxide Pending Anion Gap Pending BUN Pending Creatinine Pending BUN/Creatinine Ratio Pending Lactic Acid Cancelled Troponin I (< 0.11 ng/ml) 0.16 *H Hematology CBC w Diff Pending WBC Pending RBC Pending Hgb Pending Hct Pending MCV Pending MCH Pending MCHC Pending RDW Pending Plt Count Pending MPV Pending 06/06 2009 Chemistry Sodium (137 - 145 mmol/L) 136 L Potassium (3.5 - 5.1 mmol/L) 4.5 Chloride (98 - 107 mmol/L) 101 Carbon Dioxide (22 - 30 mmol/L) 26 Anion Gap (5 - 16) 9 BUN (7 - 17 mg/dL) 12 Creatinine (0.5 - 1.0 mg/dL) 0.8 Estimated GFR (>60 ml/min) > 60 BUN/Creatinine Ratio (7 - 25 %) 15.0 Glucose (65 - 99 mg/dL) 147 H Lactic Acid (0.7 - 2.1 mmol/L) 1.4 Calcium (8.4 - 10.2 mg/dL) 8.1 L Total Bilirubin (0.2 - 1.3 mg/dL) 1.4 H Direct Bilirubin (< 0.4 mg/dL) 0.6 H AST (14 - 36 U/L) 76 H ALT (9 - 52 U/L) 85 H Alkaline Phosphatase (<127 U/L) 100 Troponin I (< 0.11 ng/ml) 0.15 *H Total Protein (6.3 - 8.2 g/dL) 6.4 Albumin (3.5 - 5.0 g/dL) 3.3 L Amylase (30 - 110 U/L) 32 Lipase (23 - 300 U/L) 48 Hematology CBC w Diff MAN DIFF ORDERED WBC (4.8 - 10.8 /CUMM) 1.4 *L RBC (4.20 - 5.40 /CUMM) 2.07 L Hgb (12.0 - 16.0 G/DL) 7.4 *L Hct (37 - 47 %) 22.4 L MCV (81.0 - 99.0 FL) 108.1 H MCH (27.0 - 31.0 PG) 35.9 H MCHC (33.0 - 37.0 G/DL) 33.2 RDW (11.5 - 14.5 %) 27.7 H Plt Count (130 - 400 /CUMM) 50 L MPV (7.4 - 10.4 FL) 10.2 Gran % (42.2 - 75.2 %) 17.1 L Lymphocytes % (20.5 - 51.1 %) 73.0 H Monocytes % (1.7 - 9.3 %) 9.5 H Eosinophils % (0 - 5 %) 0.4 Basophils % (0.0 - 2.0 %) 0 Absolute Granulocytes (1.4 - 6.5 /CUMM) 0.2 L Segmented Neutrophils (42.2 - 75.2 %) 26 L Band Neutrophils (0.0 - 5.0 %) 3 Absolute Lymphocytes (1.2 - 3.4 /CUMM) 1.0 L Lymphocytes (20.5 - 51.1 %) 58 H Monocytes (1.7 - 9.3 %) 3 Absolute Monocytes (0.10 - 0.60 /CUMM) 0.1 Eosinophils (0 - 5.0 %) 9 H Absolute Eosinophils (0.0 - 0.7 /CUMM) 0 Basophils (0.0 - 2.0 %) 1 Absolute Basophils (0.0 - 0.2 /CUMM) 0 Platelet Estimate (ADEQUATE) DECREASED Hypochromic-Microcytic 1+ Poikilocytosis 1+ Anisocytosis 2+ Microcytic Cells 1+ Macrocytic Cells 2+ Ovalocytes FEW Stomatocytes FEW [place] Cells FEW Elliptocytes 1+ Schistocytes FEW Imaging/Other Studies: CTA chest/abdomen/pelvis 06/06/2018: PULMONARY ARTERIES: No central or segmental pulmonary emboli. THORACIC AORTA: Calcific atherosclerosis is present. No aneurysmal dilatation or dissection. LUNG: Severe emphysema is present in the upper lobes. There is more moderate emphysema in the right middle and lower lobes. No pulmonary consolidations. Central airways are patent. No bronchiectasis. No pulmonary nodules. A perifissural nodule is present along the right minor fissure anteriorly. PLEURA: No pleural effusion or pneumothorax. MEDIASTINUM: Normal heart size. No pericardial effusion. No hilar or mediastinal lymphadenopathy. Calcific atherosclerosis is present of the coronary arteries. CHEST WALL/AXILLA: No axillary or internal mammary lymphadenopathy. OSSEOUS STRUCTURES: Mild multilevel degenerative disc disease in the thoracic spine. No fracture or malalignment. ABDOMEN AND PELVIS: LIVER, GALLBLADDER, BILIARY TREE: The liver is normal in size, shape, and attenuation. No focal hepatic lesion or biliary ductal dilatation is present. There is mild gallbladder wall thickening and pericholecystic fluid. No radiodense gallstones. Common bile duct is normal in caliber. PANCREAS: Unremarkable. SPLEEN: Unremarkable. ADRENAL GLANDS: Normal. KIDNEYS AND URETERS: The kidneys are normal in shape and enhancement. Mild cortical thinning is present in the left kidney, suggesting mild atrophy. No hydronephrosis, hydroureter, or calculi seen. No perinephric stranding. BLADDER: Normal. GASTROINTESTINAL TRACT: Stomach, small bowel, and colon are normal in caliber. There is a loop ileostomy in the right mid abdomen. Numerous loops of small bowel have herniated through the abdomen into the subcutaneous fat. No evidence of strangulation are workstation. Bowel is normal in caliber. No intraperitoneal free fluid or free air. The colon is largely decompressed. Postsurgical changes are present around the expected location of the distal rectum and anus. 2 drainage tubes extend into a ill-defined presacral collection. There is a 6.7 x 2.8 x 6.3 cm (transverse by AP by craniocaudal) area of heterogeneous soft tissue attenuation and gas in the presacral collection. A small amount of fluid may be present. The size of the collection is now significantly changed from prior. No new collections are identified. ABDOMINAL WALL: As mentioned above, there is a parastomal hernia in the right mid abdomen at the site of the loop ileostomy. LYMPHOVASCULAR STRUCTURES: Calcific atherosclerosis is present in the abdominal aorta and iliac arteries. No aneurysmal dilatation. No adenopathy. PELVIC VISCERA: Uterus appears relatively diminutive. Ovaries are not not well seen. OSSEOUS STRUCTURES: Mild degenerative disc disease present in the lumbar spine. Cortical thickening and irregularity at the anterior margin of the sacrum is likely reactive to the overlying collection. No acute osteomyelitis is suspected. IMPRESSION: 1. Moderate to severe pulmonary emphysema. No acute intrathoracic findings. No evidence of pulmonary embolism. 2. Gallbladder wall thickening and a small amount of pericholecystic fluid. No radiodense stones are identified, though gallstones may be better seen by ultrasound. Consider correlation with right upper quadrant ultrasound to exclude cholelithiasis and acute cholecystitis. 3. No significant change in the presacral collection and 2 drainage tubes. The collection contains gas and a small amount of fluid. Assessment/Plan Assessment: Ms. 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 Work up has been notable for elevated troponin of 0.16 and 0.15. She is pancytopenic with WBC of 1400, hemoglobin of 7.4, and platelet of 50,000. CTA of the chest/abdomen/pelvis were done and did not demonstrate new findings. She has been afebrile. She was given 1 unit of pRBC. Cardiology has been consulted for her troponin elevation. Troponin may be demand ischemia from anemia. Thrombosis is also a potential given risk for thrombosis with lenalidomide. Anticoagulation has been held off due to thrombocytopenia. She may be place on anticoagulation if platelet >50, 000 if needed. Pancytopenia is likely related to MDS and lenalidomide. She is now on her week off for her lenalidomide. Given her leg pain, she may need to have US of the lower extremity. She may get transfusion as needed. Recommendations: Pancytopenia: -transfuse with platelet if <10,000, <20,000 with fever, or <50,000 with bleeding -transfuse with pRBC if hgb <8 Lower extremity pain: -US bilateral lower extremity Elevated troponin: -cardiology consulted -aspirin -anticoagulation as per cardiology (if platelet >50,000) MDS: -hold lenalidomide -follow up as outpatient Problem List: 1. MDS (myelodysplastic syndrome) with 5q deletion 2. Elevated troponin 3. Pancytopenia associated with pancreatitis 4. Lower extremity pain, bilateral Other Findings/Comments: Please call [phone] with any questions or concerns. Consult Acknowledgment - Thank you for your consult request.
--- NOTE | 2018-06-07 09:48 | PN- Student ---
Objective Results Results: Laboratory Tests 06/07/18 0910: WBC Pending, RBC Pending, Hgb Pending, Hct Pending, MCV Pending, MCH Pending, MCHC Pending, RDW Pending, Plt Count Pending, MPV Pending 06/07/18 0800: Troponin I Pending 06/07/18 0714: Anion Gap 9, Estimated GFR > 60, BUN/Creatinine Ratio 14.3 06/07/18 0155: Troponin I 0.16 *H 06/06/18 2240: Lactic Acid Cancelled 06/06/182008: Anion Gap 9, Estimated GFR > 60, BUN/Creatinine Ratio 15.0, Glucose 147 H, Lactic Acid 1.4, Calcium 8.1 L, Total Bilirubin 1.4 H, Direct Bilirubin 0.6 H , AST 76 H, ALT 85 H, Alkaline Phosphatase 100, Troponin I 0.15 *H, Total Protein 6.4, Albumin 3.3 L, Amylase 32, Lipase 48, CBC w Diff MAN DIFF ORDERED, RBC 2.07 L, MCV 108.1 H, MCH 35.9 H, MCHC 33.2, RDW 27.7 H, MPV 10.2, Gran % 17.1 L, Lymphocytes % 73.0 H, Monocytes % 9.5 H, Eosinophils % 0.4, Basophils % 0, Absolute Granulocytes 0.2 L, Segmented Neutrophils 26 L, Band Neutrophils 3, Absolute Lymphocytes 1.0 L, Lymphocytes 58 H, Monocytes 3, Absolute Monocytes 0.1, Eosinophils 9 H, Absolute Eosinophils 0, Basophils 1, Absolute Basophils 0, Platelet Estimate DECREASED, Hypochromic-Microcytic 1+, Poikilocytosis 1+, Anisocytosis 2+, Microcytic Cells 1+, Macrocytic Cells 2+, Ovalocytes FEW, Stomatocytes FEW, [place] Cells FEW, Elliptocytes 1+, Schistocytes FEW Microbiology 06/07 015 BLOOD: Blood Culture - RECD 06/07 102 LOWER RESP: Respiratory Culture - COLB 06/07 102 LOWER RESP: Gram Stain - COLB 06/06 2008 BLOOD: Blood Culture - RECD 06/06 1940 URINE ROUT: Urine Culture - COLB
[2018-06-07 10:01] LABS: ABSOLUTE BASOPHIL COUNT 0 /CUMM (0.0-0.2); ABSOLUTE EOSINOPHIL COUNT 0.1 /CUMM (0.0-0.7); ABSOLUTE GRANULOCYTE CT 0.6 /CUMM (1.4-6.5); ABSOLUTE LYMPH COUNT 0.9 /CUMM (1.2-3.4); ABSOLUTE MONOCYTE COUNT 0.2 /CUMM (0.10-0.60); BASOPHIL % 0 % (0.0-2.0); EOSINOPHIL % 3.5 % (0-5); HEMATOCRIT 24.2 % (37-47); MEAN CORPUSCULAR HGB 35.5 PG (27.0-31.0); MEAN CORPUSCULAR HGB CONC 33.5 G/DL (33.0-37.0); MEAN CORPUSCULAR VOLUME 106.2 FL (81.0-99.0); MEAN PLATELET VOLUME 10.2 FL (7.4-10.4); RBC DISTRIBUTION WIDTH 27.5 % (11.5-14.5); RED BLOOD CELL CT 2.28 /CUMM (4.20-5.40); WHITE BLOOD CELL COUNT 1.8 /CUMM (4.8-10.8)
[2018-06-07 10:54] LABS: GRANULOCYTE % 34.7 % (42.2-75.2)
[2018-06-07 11:21] LABS: PLATELET COUNT 39 /CUMM (130-400)
--- NOTE | 2018-06-07 12:07 | Cons- Cardiology ---
General Information and HPI Consulting Request Date of Consult: 06/07/18 Requested By: Benson Lock MD Reason for Consult: Elevated troponin isoenzyme Source of Information: patient, old records Exam Limitations: no limitations History of Present Illness: The patient is a 72-year-old woman with a past medical history of COPD, hypertension, rectal CA myelodysplastic syndrome, as well as anemia with requirements of transfusions. She presents to our hospital with symptoms of weakness and dyspnea. On presentation, the patient had described episodes of lower extremity discomfort, and underwent a CTA to exclude pulmonary embolism. On arrival, she was as well noted to have a mildly elevated troponin isoenzyme of 0.16; however, he denied symptoms of chest pains at that time or previously. She does state having occasional episodes of palpitations, denies lightheadedness nor syncope with these. No ischemic EKG changes were noted on arrival. She was however hypoxic as well as hypertensive on arrival. Subsequently, the troponin isoenzyme level has normalized, with the third draw. The patient otherwise describes being able to perform activity of approximately 4 METs home without symptoms of chest pain nor triggering palpitations. Allergies/Medications Allergies: Coded Allergies: aspirin (Intermediate, GI UPSET 06/06/18) gluten (Mild, GI UPSET 06/06/18) lactase (From DAIRY AID) (Mild, LACTOSE INTOLERANT 06/06/18) Home Med List: Albuterol Sulfate (Proair Hfa) 90 MCG HFA.AER.AD 2 PUF INH Q6H PRN RESPIRATORY (Reported) Budesonide/Formoterol Fumarate (Symbicort 160-4.5 Mcg Inhaler) 160 MCG-4.5 MCG/ ACTUATION HFA.AER.AD 2 PUF INH BID RESPIRATORY (Reported) Hydromorphone HCl 4 MG TABLET 1 TAB PO Q6H PRN PAIN (Reported) Ipratropium/Albuterol Sulfate (Combivent Respimat Inhal [place]) 20 MCG-100 MCG/ ACTUATION MIST.INHAL 1 PUFF INH 4XDAILY RESP. (Reported) Oxycodone HCl (Oxycontin) 20 MG TAB.ER.12H 1 TAB PO Q12H PAIN (Reported) Zolpidem Tartrate (Ambien) 5 MG TABLET 1 TAB PO QHS PRN PAIN (Reported) Current Medications: Current Medications Sig/Dontae Start time Last Medication Dose Route Stop Time Status Admin Albuterol Sulfate 2 PUF Q4P PRN 06/07 1100 AC INH Albuterol Sulfate 2 PUF Q6P PRN 06/07 0030 AC INH Aspirin 81 MG DAILY 06/07 900 CAN PO Aspirin 0 .STK-MED ONE 06/06 2103 DC PO Aspirin 325 MG ONCE ONE 06/06 2100 DC 06/06 PO 06/06 2101 2140 Budesonide/ 2 PUF BID 06/07 900 AC 06/07 Formoterol Fumarate INH 0838 Ceftazidime 2,000 MG IQ8 06/07 0800 AC 06/07 IV 1148 Ceftazidime 1,000 MG ONCE ONE 06/07 0030 DC 06/07 IV 06/07 0031 0535 Ceftazidime 0 .STK-MED ONE 06/06 2252 DC .ROUTE Ceftazidime 1,000 MG ONCE ONE 06/06 2130 DC 06/06 IV 06/06 2131 2315 Heparin Sodium 5,000 UNIT Q8 06/07 0600 DC 06/07 (Porcine) SC 0541 Hydromorphone HCl 1 MG Q6P PRN 06/07 0030 AC 06/07 IV 0828 Melatonin 5 MG AT BEDTIME 06/07 0045 AC 06/07 PO 0245 Ondansetron HCl 4 MG ONCE ONE 06/07 1130 DC 06/07 IV 06/07 1131 1147 Oxycodone HCl 20 MG Q8 06/07 1400 AC PO Oxycodone HCl 20 MG Q8 PRN 06/07 0815 DC PO Oxycodone HCl 20 MG Q12H 06/07 0030 DC 06/07 PO 0047 Sodium Chloride 1,000 ML BOLUS ONE 06/06 1945 DC 06/06 IV 06/06 2044 2100 Vancomycin HCl 1,000 MG ONCE ONE 06/06 2130 DC 06/06 Sodium Chloride 250 ML IV 06/06 2229 2315 Zolpidem Tartrate 5 MG .[BEDTIME] PRN 06/07 0030 DC PO Review of Systems Review of Systems: The review of systems is negative for chest pains, nor lightheadedness. The remainder of the 14 point review of systems is noncontributory with the exception of above. Past History Travel History Traveled to [place] past 21 day No Medical History Blood Transfusion Hx: Yes EENT: allergies Cardiovascular: hypertension Respiratory: asthma, pneumonia Gastrointestinal: GERD Hepatic: NONE Renal: NONE Musculoskeletal: chronic back pain, osteoarthritis Psychiatric: NONE Endocrine: NONE Blood Disorders: pancytopenia, MDS Cancer(s): rectal ca [employer] WORK[employer] COORDINATOR/Reproductive: NONE Other Medical Hx: rectal CA, presacral abscess, colovaginal fistula Surgical History Surgical History: hernia repair-ventral, lower anterior resection with diverting ileostomy 2006 reversal in 2006 with creation of an ileostomy and subsequent reversal in tonsillectomy diverting loop ileostomy Psychosocial History Where Do You Live? Home Who Do You Live With? spouse Services at Home: None Smoking Status: Former Smoker ETOH Use: denies use Illicit Drug Use: denies illicit drug use Functional Ability ADLs Independent: dressing, eating, toileting, bathing. Ambulation: independent IADLs Independent: shopping, housework, finances, food prep, telephone, transportation , medication admin. Employment History Employment: Retired Exam & Diagnostic Data Vital Signs and I&O Vital Signs Date Time Temp Pulse Resp B/P B/P Pulse O2 O2 Flow FiO2 Mean Ox Delivery Rate 06/07 1055 Nasal 2.0L Cannula 06/07 0200 97.8 67 18 170/74 93 Nasal 2.0L Cannula 06/07 0114 Nasal 2.0L Cannula 06/07 0019 98.2 70 20 142/62 95 Nasal Cannula 06/06 2258 98.7 70 18 119/53 98 Nasal 2.0L Cannula 06/06 2045 93 Nasal 2.0L Cannula 06/06 1930 98.7 80 18 174/70 87 Room Air Intake & Output 06/07 1600 06/07 0800 06/07 0000 06/06 1600 06/06 0800 06/06 0000 Intake Total 720 1000 Output Total Balance 720 1000 Intake, Blood 500 Product Intake, IV 1000 Intake, Oral 220 Patient 256 lb 235 lb Weight Weight Bed scale Measurement Method Physical Exam: General: Nontoxic, no apparent distress. HEENT: Sclera and conjunctiva within normal limits, without xanthelasmas. Neck: Carotids 2+ without bruits. Respiratory: Scattered rhonchi, air movement is good, without accessory respiratory muscle use. Heart: Regular rate and rhythm, without murmurs, without JVD. Abdomen: Soft, nontender, no masses, normoactive bowel sounds. Extremities: Without clubbing, cyanosis, without edema. Neuro: Nonfocal exam, strength, 5 out of 5 Skin: Within normal limits without lesions. Psych: Mood and affect: Normal Labs/Dar Results: Laboratory Tests 06/07 06/07 06/07 06/07 0910 0800 0714 0155 Chemistry Sodium (137 - 145 mmol/L) 140 Potassium (3.5 - 5.1 mmol/L) 4.5 Chloride (98 - 107 mmol/L) 105 Carbon Dioxide (22 - 30 mmol/L) 25 Anion Gap (5 - 16) 9 BUN (7 - 17 mg/dL) 10 Creatinine (0.5 - 1.0 mg/dL) 0.7 Estimated GFR (>60 ml/min) > 60 BUN/Creatinine Ratio (7 - 25 %) 14.3 Troponin I (< 0.11 ng/ml) 0.09 0.16 *H Hematology CBC w Diff NO MAN DIFF REQ WBC (4.8 - 10.8 /CUMM) 1.8 L RBC (4.20 - 5.40 /CUMM) 2.28 L Hgb (12.0 - 16.0 G/DL) 8.1 L Hct (37 - 47 %) 24.2 L MCV (81.0 - 99.0 FL) 106.2 H MCH (27.0 - 31.0 PG) 35.5 H MCHC (33.0 - 37.0 G/DL) 33.5 RDW (11.5 - 14.5 %) 27.5 H Plt Count (130 - 400 /CUMM) 39 L MPV (7.4 - 10.4 FL) 10.2 Gran % (42.2 - 75.2 %) 34.7 L Lymphocytes % (20.5 - 51.1 %) 49.6 Monocytes % (1.7 - 9.3 %) 12.2 H Eosinophils % (0 - 5 %) 3.5 Basophils % (0.0 - 2.0 %) 0 Absolute Granulocytes (1.4 - 6.5 /CUMM) 0.6 L Absolute Lymphocytes (1.2 - 3.4 /CUMM) 0.9 L Absolute Monocytes (0.10 - 0.60 /CUMM) 0.2 Absolute Eosinophils (0.0 - 0.7 /CUMM) 0.1 Absolute Basophils (0.0 - 0.2 /CUMM) 0 06/06 Chemistry Sodium (137 - 145 mmol/L) 136 L Potassium (3.5 - 5.1 mmol/L) 4.5 Chloride (98 - 107 mmol/L) 101 Carbon Dioxide (22 - 30 mmol/L) 26 Anion Gap (5 - 16) 9 BUN (7 - 17 mg/dL) 12 Creatinine (0.5 - 1.0 mg/dL) 0.8 Estimated GFR (>60 ml/min) > 60 BUN/Creatinine Ratio (7 - 25 %) 15.0 Glucose (65 - 99 mg/dL) 147 H Lactic Acid (0.7 - 2.1 mmol/L) Cancelled 1.4 Calcium (8.4 - 10.2 mg/dL) 8.1 L Total Bilirubin (0.2 - 1.3 mg/dL) 1.4 H Direct Bilirubin (< 0.4 mg/dL) 0.6 H AST (14 - 36 U/L) 76 H ALT (9 - 52 U/L) 85 H Alkaline Phosphatase (<127 U/L) 100 Troponin I (< 0.11 ng/ml) 0.15 *H Total Protein (6.3 - 8.2 g/dL) 6.4 Albumin (3.5 - 5.0 g/dL) 3.3 L Amylase (30 - 110 U/L) 32 Lipase (23 - 300 U/L) 48 Hematology CBC w Diff MAN DIFF ORDERED WBC (4.8 - 10.8 /CUMM) 1.4 *L RBC (4.20 - 5.40 /CUMM) 2.07 L Hgb (12.0 - 16.0 G/DL) 7.4 *L Hct (37 - 47 %) 22.4 L MCV (81.0 - 99.0 FL) 108.1 H MCH (27.0 - 31.0 PG) 35.9 H MCHC (33.0 - 37.0 G/DL) 33.2 RDW (11.5 - 14.5 %) 27.7 H Plt Count (130 - 400 /CUMM) 50 L MPV (7.4 - 10.4 FL) 10.2 Gran % (42.2 - 75.2 %) 17.1 L Lymphocytes % (20.5 - 51.1 %) 73.0 H Monocytes % (1.7 - 9.3 %) 9.5 H Eosinophils % (0 - 5 %) 0.4 Basophils % (0.0 - 2.0 %) 0 Absolute Granulocytes (1.4 - 6.5 /CUMM) 0.2 L Segmented Neutrophils (42.2 - 75.2 %) 26 L Band Neutrophils (0.0 - 5.0 %) 3 Absolute Lymphocytes (1.2 - 3.4 /CUMM) 1.0 L Lymphocytes (20.5 - 51.1 %) 58 H Monocytes (1.7 - 9.3 %) 3 Absolute Monocytes (0.10 - 0.60 /CUMM) 0.1 Eosinophils (0 - 5.0 %) 9 H Absolute Eosinophils (0.0 - 0.7 /CUMM) 0 Basophils (0.0 - 2.0 %) 1 Absolute Basophils (0.0 - 0.2 /CUMM) 0 Platelet Estimate (ADEQUATE) DECREASED Hypochromic-Microcytic 1+ Poikilocytosis 1+ Anisocytosis 2+ Microcytic Cells 1+ Macrocytic Cells 2+ Ovalocytes FEW Stomatocytes FEW Brijesh Cells FEW Elliptocytes 1+ Schistocytes FEW Assessment/Plan Assessment/Plan 72-year-old woman with a past medical history of COPD, hypertension, rectal CA myelodysplastic syndrome, as well as anemia with requirements of transfusions. She presents to our hospital with symptoms of weakness and dyspnea. She was noted to have a mildly elevated troponin isoenzyme as well as significant hypoxia with underlying anemia on presentation. Troponin isoenzyme elevation: The patient presented with mild troponin isoenzyme elevation in the setting of anemia and significant hypoxia. The overall pattern of her troponin presentation in the context of her presentation with anemia, hypoxia and an elevated blood pressure suggest an underlying supply demand mismatch, consistent with an acute type II on ST segment elevation myocardial infarction. His is not consistent with an acute coronary syndrome. Her regimen of heparin may be discontinued and if acceptable from a hematologic standpoint, aspirin at 81 mg daily should be maintained. She should as well be maintained on a statin regimen and initiated on a beta lolita if tolerated active airway disease/asthma standpoint. Further delineation of a possible underlying ischemic burden will be performed as an outpatient through nuclear testing. An echocardiogram should be obtained to delineate her current function. Hypertension: If tolerated, a beta lolita such as carvedilol may be initiated for added blood pressure control. If not tolerated, an agent such as amlodipine may be considered for blood pressure control. We will continue to follow this and titrate as necessary. Anemia/myelodysplastic syndrome: Patient is followed by hematology and we will continue recommendations as per the same. The addition of an aspirin at 81 mg daily would be beneficial from a cardiac standpoint. Consult Acknowledgment - Thank you for your consult request.
[2018-06-07 14:24] VITALS: BP 114/58
--- NOTE | 2018-06-07 14:59 | Cons- Gastroenterology ---
General Information and HPI Consulting Request Date of Consult: 06/07/18 Requested By: Ashvin CONNER,Benson Reason for Consult: Increased LFTs, abdnormal ct scan showing gallbladder wall thickening with pericholecystic fluid. Source of Information: patient, old records Exam Limitations: no limitations History of Present Illness: Ms. Beal is a 72 year old female with a PMH significant for myelodysplastic syndrome, rectal ca s/p surgery and chemo/xrt, HTN, COPD and DM who presented to yesterday with one week of worsening myalgias and fatigue and bilateral leg pain. In her work up she had a cta which showed a thickened GB with pericholecystic fluid and as she had a mild transaminitis a GI consult was called. She complains of some nausea, but she is without any vomiting. She is without any pain with eating. She denies heartburn or dysphagia. She has been having normal bowel movements and she has been without any diarrhea or constipation. She also is without any rectal bleeding, poornima colored stool or dark urine. She was admitted to the medical service and put on neutropenic precautions and she was started on antibiotics prophylactically. Allergies/Medications Allergies: Coded Allergies: aspirin (Intermediate, GI UPSET 06/06/18) gluten (Mild, GI UPSET 06/06/18) lactase (From DAIRY AID) (Mild, LACTOSE INTOLERANT 06/06/18) Home Med List: Albuterol Sulfate (Proair Hfa) 90 MCG HFA.AER.AD 2 PUF INH Q6H PRN RESPIRATORY (Reported) Budesonide/Formoterol Fumarate (Symbicort 160-4.5 Mcg Inhaler) 160 MCG-4.5 MCG/ ACTUATION HFA.AER.AD 2 PUF INH BID RESPIRATORY (Reported) Hydromorphone HCl 4 MG TABLET 1 TAB PO Q6H PRN PAIN (Reported) Ipratropium/Albuterol Sulfate (Combivent Respimat Inhal Butler) 20 MCG-100 MCG/ ACTUATION MIST.INHAL 1 PUFF INH 4XDAILY RESP. (Reported) Oxycodone HCl (Oxycontin) 20 MG TAB.ER.12H 1 TAB PO Q12H PAIN (Reported) Zolpidem Tartrate (Ambien) 5 MG TABLET 1 TAB PO QHS PRN PAIN (Reported) Current Medications: Current Medications Sig/Dontae Start time Last Medication Dose Route Stop Time Status Admin Albuterol Sulfate 2 PUF Q4P PRN 06/07 1100 AC INH Albuterol Sulfate 2 PUF Q6P PRN 06/07 0030 AC INH Aspirin 81 MG DAILY 06/07 1245 AC PO Aspirin 81 MG DAILY 06/07 0900 CAN PO Aspirin 0 .STK-MED ONE 06/06 2103 DC PO Aspirin 325 MG ONCE ONE 06/06 2100 DC 06/06 PO 06/06 2101 2140 Budesonide/ 2 PUF BID 06/07 0900 AC 06/07 Formoterol Fumarate INH 0838 Carvedilol 3.125 MG BID 06/07 1237 AC PO Ceftazidime 2,000 MG IQ8 06/07 0800 AC 06/07 IV 1148 Ceftazidime 1,000 MG ONCE ONE 06/07 0030 DC 06/07 IV 06/07 0031 0535 Ceftazidime 0 .STK-MED ONE 06/06 2252 DC .ROUTE Ceftazidime 1,000 MG ONCE ONE 06/06 2130 DC 06/06 IV 06/06 2131 2315 Heparin Sodium 5,000 UNIT Q8 06/07 0600 DC 06/07 (Porcine) SC 0541 Hydromorphone HCl 1 MG Q4P PRN 06/07 1231 AC 06/07 IV 1255 Hydromorphone HCl 1 MG Q6P PRN 06/07 0030 DC 06/07 IV 0828 Melatonin 5 MG AT BEDTIME 06/07 0045 AC 06/07 PO 0245 Ondansetron HCl 4 MG ONCE ONE 06/07 1130 DC 06/07 IV 06/07 1131 1147 Oxycodone HCl 20 MG Q8 06/07 1400 AC PO Oxycodone HCl 20 MG Q8 PRN 06/07 0815 DC PO Oxycodone HCl 20 MG Q12H 06/07 0030 DC 06/07 PO 0047 Patient Medication 1 ED ONE ONE 06/07 1230 DC Teaching ED 06/07 1231 Sodium Chloride 1,000 ML BOLUS ONE 06/06 1945 DC 06/06 IV 06/06 2044 2100 Vancomycin HCl 1,000 MG ONCE ONE 06/06 2130 DC 06/06 Sodium Chloride 250 ML IV 06/06 2229 2315 Zolpidem Tartrate 5 MG .[BEDTIME] PRN 06/07 0030 DC PO Past History Travel History Traveled to [place] past 21 day No Medical History Blood Transfusion Hx: Yes EENT: allergies Cardiovascular: hypertension Respiratory: asthma, pneumonia Gastrointestinal: GERD Hepatic: NONE Renal: NONE Musculoskeletal: chronic back pain, osteoarthritis Psychiatric: NONE Endocrine: NONE Blood Disorders: pancytopenia, MDS Cancer(s): rectal ca 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 Home Who Do You Live With? spouse Services at Home: None Smoking Status: Former Smoker ETOH Use: denies use Illicit Drug Use: denies illicit drug use Functional Ability ADLs Independent: dressing, eating, toileting, bathing. Ambulation: independent IADLs Independent: shopping, housework, finances, food prep, telephone, transportation , medication admin. Employment History Employment: Retired Review of Systems Review of Systems Constitutional: Reports: malaise, weakness. Denies: chills, diaphoresis, fever. EENTM: Denies: no symptoms, eye pain, icterus. Cardiovascular: Denies: no symptoms. Respiratory: Reports: short of breath. Denies: cough, hemoptysis, orthopnea, sputum production. GI: Reports: see HPI. Genitourinary: Denies: no symptoms. Musculoskeletal: Reports: muscle pain, muscle stiffness. Denies: joint pain, joint swelling. Skin: Denies: no symptoms. Neurological/Psychological: Denies: no symptoms. Hematologic/Endocrine: Denies: no symptoms. Immunologic/Allergic: Denies: no symptoms. All Other Systems: Reviewed and Negative Exam & Diagnostic Data Vital Signs and I&O Vital Signs Date Time Temp Pulse Resp B/P B/P Pulse O2 O2 Flow FiO2 Mean Ox Delivery Rate 06/07 1055 Nasal 2.0L Cannula 06/07 0800 Room Air 06/07 0200 97.8 67 18 170/74 93 Nasal 2.0L Cannula 06/07 0114 Nasal 2.0L Cannula 06/07 0019 98.2 70 20 142/62 95 Nasal Cannula 06/06 2258 98.7 70 18 119/53 98 Nasal 2.0L Cannula 06/06 2045 93 Nasal 2.0L Cannula 06/06 1930 98.7 80 18 174/70 87 Room Air Intake & Output 06/07 040 Intake Total 720 1000 Output Total Balance 720 1000 Intake, Blood 500 Product Intake, IV 1000 Intake, Oral 220 Patient 256 lb Weight Weight Bed scale Measurement Method Physical Exam General Appearance: well developed/nourished, no apparent distress, alert, awake , comfortable Head: atraumatic, normal appearance Eyes: Bilateral: normal appearance. Ears, Nose, Throat: normal pharynx, normal ENT inspection Neck: normal inspection, supple, full range of motion Respiratory: normal breath sounds, chest non-tender, no respiratory distress Cardiovascular: regular rate/rhythm, edema Gastrointestinal: normal bowel sounds, soft, non-tender, no organomegaly, negative murphys sign Rectal: deferred Extremities: normal inspection, pedal edema, swelling Neurologic/Psych: no motor/sensory deficits, awake, alert, oriented x 3 Results Pertinent Lab Results: Laboratory Tests 06/07 06/07 06/07 06/07 0910 0800 0714 0155 Chemistry Sodium (137 - 145 mmol/L) 140 Potassium (3.5 - 5.1 mmol/L) 4.5 Chloride (98 - 107 mmol/L) 105 Carbon Dioxide (22 - 30 mmol/L) 25 Anion Gap (5 - 16) 9 BUN (7 - 17 mg/dL) 10 Creatinine (0.5 - 1.0 mg/dL) 0.7 Estimated GFR (>60 ml/min) > 60 BUN/Creatinine Ratio (7 - 25 %) 14.3 Troponin I (< 0.11 ng/ml) 0.09 0.16 *H Hematology CBC w Diff NO MAN DIFF REQ WBC (4.8 - 10.8 /CUMM) 1.8 L RBC (4.20 - 5.40 /CUMM) 2.28 L Hgb (12.0 - 16.0 G/DL) 8.1 L Hct (37 - 47 %) 24.2 L MCV (81.0 - 99.0 FL) 106.2 H MCH (27.0 - 31.0 PG) 35.5 H MCHC (33.0 - 37.0 G/DL) 33.5 RDW (11.5 - 14.5 %) 27.5 H Plt Count (130 - 400 /CUMM) 39 L MPV (7.4 - 10.4 FL) 10.2 Gran % (42.2 - 75.2 %) 34.7 L Lymphocytes % (20.5 - 51.1 %) 49.6 Monocytes % (1.7 - 9.3 %) 12.2 H Eosinophils % (0 - 5 %) 3.5 Basophils % (0.0 - 2.0 %) 0 Absolute Granulocytes (1.4 - 6.5 /CUMM) 0.6 L Absolute Lymphocytes (1.2 - 3.4 /CUMM) 0.9 L Absolute Monocytes (0.10 - 0.60 /CUMM) 0.2 Absolute Eosinophils (0.0 - 0.7 /CUMM) 0.1 Absolute Basophils (0.0 - 0.2 /CUMM) 0 06/06 Chemistry Sodium (137 - 145 mmol/L) 136 L Potassium (3.5 - 5.1 mmol/L) 4.5 Chloride (98 - 107 mmol/L) 101 Carbon Dioxide (22 - 30 mmol/L) 26 Anion Gap (5 - 16) 9 BUN (7 - 17 mg/dL) 12 Creatinine (0.5 - 1.0 mg/dL) 0.8 Estimated GFR (>60 ml/min) > 60 BUN/Creatinine Ratio (7 - 25 %) 15.0 Glucose (65 - 99 mg/dL) 147 H Lactic Acid (0.7 - 2.1 mmol/L) Cancelled 1.4 Calcium (8.4 - 10.2 mg/dL) 8.1 L Total Bilirubin (0.2 - 1.3 mg/dL) 1.4 H Direct Bilirubin (< 0.4 mg/dL) 0.6 H AST (14 - 36 U/L) 76 H ALT (9 - 52 U/L) 85 H Alkaline Phosphatase (<127 U/L) 100 Troponin I (< 0.11 ng/ml) 0.15 *H Total Protein (6.3 - 8.2 g/dL) 6.4 Albumin (3.5 - 5.0 g/dL) 3.3 L Amylase (30 - 110 U/L) 32 Lipase (23 - 300 U/L) 48 Hematology CBC w Diff MAN DIFF ORDERED WBC (4.8 - 10.8 /CUMM) 1.4 *L RBC (4.20 - 5.40 /CUMM) 2.07 L Hgb (12.0 - 16.0 G/DL) 7.4 *L Hct (37 - 47 %) 22.4 L MCV (81.0 - 99.0 FL) 108.1 H MCH (27.0 - 31.0 PG) 35.9 H MCHC (33.0 - 37.0 G/DL) 33.2 RDW (11.5 - 14.5 %) 27.7 H Plt Count (130 - 400 /CUMM) 50 L MPV (7.4 - 10.4 FL) 10.2 Gran % (42.2 - 75.2 %) 17.1 L Lymphocytes % (20.5 - 51.1 %) 73.0 H Monocytes % (1.7 - 9.3 %) 9.5 H Eosinophils % (0 - 5 %) 0.4 Basophils % (0.0 - 2.0 %) 0 Absolute Granulocytes (1.4 - 6.5 /CUMM) 0.2 L Segmented Neutrophils (42.2 - 75.2 %) 26 L Band Neutrophils (0.0 - 5.0 %) 3 Absolute Lymphocytes (1.2 - 3.4 /CUMM) 1.0 L Lymphocytes (20.5 - 51.1 %) 58 H Monocytes (1.7 - 9.3 %) 3 Absolute Monocytes (0.10 - 0.60 /CUMM) 0.1 Eosinophils (0 - 5.0 %) 9 H Absolute Eosinophils (0.0 - 0.7 /CUMM) 0 Basophils (0.0 - 2.0 %) 1 Absolute Basophils (0.0 - 0.2 /CUMM) 0 Platelet Estimate (ADEQUATE) DECREASED Hypochromic-Microcytic 1+ Poikilocytosis 1+ Anisocytosis 2+ Microcytic Cells 1+ Macrocytic Cells 2+ Ovalocytes FEW Stomatocytes FEW Brijesh Cells FEW Elliptocytes 1+ Schistocytes FEW Imaging/Other Studies: SERVICE DATE: 06/06/18 EXAM TYPE: CAT - CT ABD & PELVIS W IV CONTRAST; CTA CHEST-PULMONARY EMBOLISM EXAMINATION: CT ANGIOGRAM OF THE CHEST WITH CONTRAST (CT PULMONARY ANGIOGRAM FOR PE) CT ABDOMEN PELVIS WITH CONTRAST CLINICAL INFORMATION: Gluteal drains. Question perirectal abscess. Cancer. Hypoxic. COMPARISON: CT abdomen pelvis dated 03/31/[address] chest dated 12/09/2016 TECHNIQUE: Prior to contrast administration, noncontrast localization images were obtained. Subsequently, multidetector volumetric imaging was performed from the thoracic inlet to below the diaphragms following the administration of 95 mL Optiray 320 intravenous contrast during the pulmonary arterial phase of enhancement. Images were then obtained from the diaphragms through the ischial tuberosities during the portal venous phase of enhancement. No contrast reaction reported. Sagittal, coronal, and MIP oblique sagittal reformatted images were obtained on the CT workstation, uploaded to PACS, and reviewed. Total exam dose-length product 1526 mGy-cm. FINDINGS: CHEST: QUALITY OF STUDY/CONTRAST BOLUS: Satisfactory PULMONARY ARTERIES: No central or segmental pulmonary emboli. THORACIC AORTA: Calcific atherosclerosis is present. No aneurysmal dilatation or dissection. LUNG: Severe emphysema is present in the upper lobes. There is more moderate emphysema in the right middle and lower lobes. No pulmonary consolidations. Central airways are patent. No bronchiectasis. No pulmonary nodules. A perifissural nodule is present along the right minor fissure anteriorly. PLEURA: No pleural effusion or pneumothorax. MEDIASTINUM: Normal heart size. No pericardial effusion. No hilar or mediastinal lymphadenopathy. Calcific atherosclerosis is present of the coronary arteries. CHEST WALL/AXILLA: No axillary or internal mammary lymphadenopathy. OSSEOUS STRUCTURES: Mild multilevel degenerative disc disease in the thoracic spine. No fracture or malalignment. ABDOMEN AND PELVIS: LIVER, GALLBLADDER, BILIARY TREE: The liver is normal in size, shape, and attenuation. No focal hepatic lesion or biliary ductal dilatation is present. There is mild gallbladder wall thickening and pericholecystic fluid. No radiodense gallstones. Common bile duct is normal in caliber. PANCREAS: Unremarkable. SPLEEN: Unremarkable. ADRENAL GLANDS: Normal. KIDNEYS AND URETERS: The kidneys are normal in shape and enhancement. Mild cortical thinning is present in the left kidney, suggesting mild atrophy. No hydronephrosis, hydroureter, or calculi seen. No perinephric stranding. BLADDER: Normal. GASTROINTESTINAL TRACT: Stomach, small bowel, and colon are normal in caliber. There is a loop ileostomy in the right mid abdomen. Numerous loops of small bowel have herniated through the abdomen into the subcutaneous fat. No evidence of strangulation are workstation. Bowel is normal in caliber. No intraperitoneal free fluid or free air. The colon is largely decompressed. Postsurgical changes are present around the expected location of the distal rectum and anus. 2 drainage tubes extend into a ill-defined presacral collection. There is a 6.7 x 2.8 x 6.3 cm (transverse by AP by craniocaudal) area of heterogeneous soft tissue attenuation and gas in the presacral collection. A small amount of fluid may be present. The size of the collection is now significantly changed from prior. No new collections are identified. ABDOMINAL WALL: As mentioned above, there is a parastomal hernia in the right mid abdomen at the site of the loop ileostomy. LYMPHOVASCULAR STRUCTURES: Calcific atherosclerosis is present in the abdominal aorta and iliac arteries. No aneurysmal dilatation. No adenopathy.. PELVIC VISCERA: Uterus appears relatively diminutive. Ovaries are not not well seen. OSSEOUS STRUCTURES: Mild degenerative disc disease present in the lumbar spine. Cortical thickening and irregularity at the anterior margin of the sacrum is likely reactive to the overlying collection. No acute osteomyelitis is suspected. IMPRESSION: 1. Moderate to severe pulmonary emphysema. No acute intrathoracic findings. No evidence of pulmonary embolism. 2. Gallbladder wall thickening and a small amount of pericholecystic fluid. No radiodense stones are identified, though gallstones may be better seen by ultrasound. Consider correlation with right upper quadrant ultrasound to exclude cholelithiasis and acute cholecystitis. 3. No significant change in the presacral collection and 2 drainage tubes. The collection contains gas and a small amount of fluid. VTE: negative Assessment/Plan Assessment/Recommendations: Assessment: Ms. Vasquez is a 72 -year-old female with multiple medical problems including a history of rectal cancer status post colectomy with ostomy formation and myelodysplastic syndrome who presents with increasing fatigue and shortness of breath and myalgias and in her workup she was noted to have a thickened gallbladder wall along with pericholecystic fluid and mildly elevated transaminases. That being said, she is without any right upper quadrant tenderness on physical exam was initiated a history of biliary colic so I feel it is unlikely that she has acute cholecystitis. Her mild transaminitis is most likely secondary to underlying PARADA and is unlikely to be related to any of her symptoms or her gb wall thickening. Recommendations: 1. Folllow up US and if it shows more definitive changes of cholecystitis or if she develops biliary colic/RUQ pain would then consider a surgical consult 2. Follow daily LFTs and if viral hep panel has not been checked recently would recommend that it be done. Will sign off at this time and ask that GI be reconsulted for any new GI issues. Consult Acknowledgment - Thank you for your consult request.
--- NOTE | 2018-06-07 15:53 | ULTRASOUND REPORT ---
EXAMINATION: US TRIPLEX OF LOWER EXTREMITIES, BILATERAL CLINICAL INFORMATION: Bilateral lower extremity pain and tenderness COMPARISON: None TECHNIQUE: Color-flow triplex imaging with spectral analysis and compression Doppler were performed on the lower extremities. FINDINGS: Respiratory variation, normal compression and augmented flow are noted throughout the lower extremities. The visualized common femoral vein, superficial femoral vein, profunda femoral vein, popliteal vein and midcalf peroneal and posterior tibial venous segments show no evidence of deep venous thrombosis. There is no Vazquez's cyst. IMPRESSION: No evidence of deep venous thrombosis involving the bilateral lower extremities.
--- NOTE | 2018-06-07 17:41 | ULTRASOUND REPORT ---
EXAMINATION: US ABDOMEN LIMITED CLINICAL INFORMATION: 32-year-old woman presenting with elevated transaminases. No abdominal pain. History of rectal cancer. COMPARISON: CT of the abdomen and pelvis dated 06/06/2018. TECHNIQUE: Real-time imaging of the right upper quadrant abdominal viscera. FINDINGS: PANCREAS: No pancreatic mass, ductal ectasia, inflammatory changes are seen. LIVER: Normal. The liver demonstrates normal size and contour but is diffusely increased in echogenicity. No focal hepatic mass lesion or intrahepatic biliary duct dilatation. GALLBLADDER: The gallbladder wall is thickened measuring 4 mm and appears edematous. No intraluminal stones or pericholecystic fluid is identified. There was a negative sonographic Key's sign. COMMON BILE DUCT: Normal in caliber measuring 0.5 cm in diameter. RIGHT KIDNEY: Normal. No hydronephrosis. No renal calculi or focal parenchymal lesions. The kidney measures 9.9 cm in maximum dimension. FREE FLUID: None. IMPRESSION: 1. No evidence of pancreatic pathology. 2. Diffusely echogenic liver raising question of hepatic steatosis. No mass lesions identified to suggest metastatic rectal cancer. 3. Thickened, edematous gallbladder wall without intraluminal stones identified, which is nonspecific. However, the pericholecystic fat appeared somewhat indurated on the recent CT. Early acalculus cholecystitis cannot be excluded.
[2018-06-07 21:33] VITALS: BP 142/64
--- NOTE | 2018-06-08 06:25 | PN- Housestaff ---
Lola Sheridan 06/08/18 0625: Subjective Follow-up For: Pancytopenia, elevated troponins. Complaints: no complaints Tele-Events Since Last Visit: Normal sinus rhythm. 57-73. sinus bradycardia 48 Subjective: Patient reports that her bilateral leg pain is better. She slept well. No acute events. Review of Systems Constitutional: Reports: see HPI. Objective Last 24 Hrs of Vital Signs/I&O Vital Signs Date Time Temp Pulse Resp B/P B/P Pulse O2 O2 Flow FiO2 Mean Ox Delivery Rate 06/08 08 Nasal 2.0L Cannula 06/08 0706 97.8 62 20 138/64 95 06/07 2143 93 Nasal 2.0L Cannula 06/07 2136 69 142/64 06/07 2133 98.6 69 18 142/64 93 Nasal 2.0L Cannula 06/07 1629 65 142/84 06/07 1424 97.5 64 18 114/58 93 Nasal 2.0L Cannula Intake & Output 06/08 1600 06/08 0800 06/08 0000 Intake Total Output Total 100 200 Balance -100 -200 Output, Urine 100 200 Patient 253 lb Weight Physical Exam General Appearance: Alert, Oriented X3, Cooperative, No Acute Distress Skin: No Rashes, No Breakdown, No Significant Lesion HEENT: Atraumatic Neck: Supple Cardiovascular: Regular Rate, Normal S1, Normal S2, No Murmurs Lungs: Clear to Auscultation (mild crackles) Abdomen: Normal Bowel Sounds, Soft, No Tenderness Neurological: Normal Speech, Strength at 5/5 X4 Ext, Normal Tone Extremities: No Clubbing, No Cyanosis, No Edema Assessment/Plan Assessment: Is a 72-year-old woman with a past medical history of COPD, hypertension, rectal carcinoma, myelodysplastic syndrome, anemia requiring transfusion. She presented with symptoms of weakness and shortness of breath. Her troponins were elevated mildly and significant hypoxia with underlying anemia. Labs: WBC 1.7, hemoglobin 7.6, hematocrit 22.5, platelet 40, sodium 139, potassium 4.6, chloride 104, bicarb 27, BUN 12, creatinine 0.8, total bilirubin 1.2, direct bilirubin 0.5, AST 46, ALT 76, alkaline phosphatase 94, total protein 6.1, albumin 3.1 Problem list: 1 pancytopenia 2 MDS with 5 q. deletion 3 elevated troponin: Type II AR 4 lower extremity pain bilateral Plan: * She is off telemetry * Stop the antibiotics * Mobility as tolerated * Start statins * Surgery consult: For questionable acalculous gall bladder * Nephrology consult * Monitor H&H * Hold the Coreg * Nuclear testing as an outpatient * Echo * Haem consult * GI consult Problem List: 1. MDS (myelodysplastic syndrome) with 5q deletion 2. Pancytopenia 3. Elevated troponin Pain Ratin Pain Location: Bilateral lower limbs. Whole-body stiffness. Pain Goal: Pain 4 or less Pain Plan: n/a Tomorrow's Labs & Rationales: bep, cbc Ashvin CONNER,Benson 06/08/18 1059: Attending MD Review Statement Attending Statement Attending MD Statement: examined this patient, discuss w/resident/PA/HIP HOP ARTIST, agreed w/resident/PA/HIP HOP ARTIST, reviewed EMR data (avail), discussed with nursing, discussed with case mgmt, amended to note Attending Assessment/Plan: Problems: 1. Abnormal troponins 2. Pancytopenia 3. Myelodysplastic syndrome 4. Transaminitis Plan: -Type II myocardial infarction secondary to demand ischemia from anemia. Aspirin on hold due to her significant thrombocytopenia. Beta-lolita therapy was started yesterday however she was bradycardic into the 40s this morning. We will continue statin therapy. Awaiting results of echocardiogram. No further telemetry monitoring per the cardiology service. -Pancytopenia secondary to chemotherapy. She is afebrile. No indication for antibiotic therapy at present. Discontinue antibiotics -Status post 1 PRBC yesterday. Hemoglobin level did improve the 0.1. It is down to 7.6 today. Repeat hemoglobin level this afternoon. if hemoglobin level is less than 8 transfuse one PRBC. -Right upper quadrant sonogram showing evidence of hepatic steatosis. She has a thickened and edematous gallbladder wall without stones. This may represent a calculus cholecystitis per imaging. Patient is asymptomatic no complaints of nausea vomiting or abdominal pain. No abdominal tenderness on exam. She is afebrile. The GI service has recommended consultation with the general surgery service.LFTs are trending downwards for now. Will likely pursue conservative management. -Mobilize patient as tolerated. afebrile. The GI service has recommended consultation with the general surgery service.LFTs are trending downwards for now. Will likely pursue conservative management. -Mobilize patient as tolerated.
[2018-06-08 07:06] VITALS: BP 138/64
[2018-06-08 08:29] LABS: ABSOLUTE BASOPHIL COUNT 0 /CUMM (0.0-0.2); ABSOLUTE EOSINOPHIL COUNT 0.2 /CUMM (0.0-0.7); ABSOLUTE GRANULOCYTE CT 0.6 /CUMM (1.4-6.5); ABSOLUTE LYMPH COUNT 0.8 /CUMM (1.2-3.4); ABSOLUTE MONOCYTE COUNT 0.1 /CUMM (0.10-0.60); BASOPHIL % 0.4 % (0.0-2.0); HEMATOCRIT 22.5 % (37-47); MEAN CORPUSCULAR HGB 35.9 PG (27.0-31.0); MEAN CORPUSCULAR HGB CONC 33.7 G/DL (33.0-37.0); MEAN CORPUSCULAR VOLUME 106.5 FL (81.0-99.0); MEAN PLATELET VOLUME 10.3 FL (7.4-10.4); PLATELET COUNT 40 /CUMM (130-400); RBC DISTRIBUTION WIDTH 27.6 % (11.5-14.5); RED BLOOD CELL CT 2.12 /CUMM (4.20-5.40); WHITE BLOOD CELL COUNT 1.7 /CUMM (4.8-10.8)
--- NOTE | 2018-06-08 08:49 | PN- Hematology ---
Subjective Subjective: Her energy level has increased. She feels low bit better. She still has leg pain. She still has some fatigue. She has irritated that she has to get stuck multiple times for her blood work. She has not had any fever. She denies any chills. She denies any nausea or vomiting. She wants to be able to go home soon. Review of Systems Constitutional: Reports: malaise, weakness. Denies: chills, fever. Cardiovascular: Denies: chest pain. Respiratory: Reports: short of breath. Gastrointestinal: Denies: abdominal pain. Genitourinary: Denies: discharge. Musculoskeletal: Denies: back pain, joint swelling. Skin: Denies: rash. Neurological/Psychological: Denies: anxiety. Hematologic/Endocrine: Denies: bruising, bleeding. All Other Systems: Reviewed and Negative Objective Vital Signs and I&Os Vital Signs Date Time Temp Pulse Resp B/P B/P Pulse O2 O2 Flow FiO2 Mean Ox Delivery Rate 06/08 706 97.8 62 20 138/64 95 06/07 2143 93 Nasal 2.0L Cannula 06/07 2136 69 142/64 06/07 2133 98.6 69 18 142/64 93 Nasal 2.0L Cannula 06/07 1629 65 142/84 06/07 1424 97.5 64 18 114/58 93 Nasal 2.0L Cannula 06/07 1055 Nasal 2.0L Cannula Intake & Output 06/08 1600 06/08 0800 06/08 0000 06/07 1600 06/07 0800 06/07 0000 Intake Total 763 975 0047 Output Total 100 200 200 Balance -100 -200 261 054 7232 Intake, Blood 500 Product Intake, IV 50 1000 Intake, Oral 500 220 Output, Stool 200 Output, Urine 100 200 Patient 114.872 kg 116.176 kg 106.594 kg Weight Weight Bed scale Measurement Method Physical Exam: General Appearance: well developed/nourished, no apparent distress, alert, awake , comfortable, obese Head: atraumatic, normal appearance Ears, Nose, Throat: normal pharynx Neck: supple Respiratory: chest non-tender, no respiratory distress, quiet respiration, ON 2L NC Cardiovascular: regular rate/rhythm Gastrointestinal: soft, non-tender, no organomegaly Extremities: no edema, tenderness (diffusely in BLE) Neurologic/Psych: awake, alert, oriented x 3 Cranial Nerves: normal speech Lymphatic: no anterior cervical pricilla Current Medications: Current Medications Sig/Dontae Start time Last Medication Dose Route Stop Time Status Admin Albuterol Sulfate 2 PUF Q4P PRN 06/07 1100 AC INH Albuterol Sulfate 2 PUF Q6P PRN 06/07 0030 AC INH Aspirin 81 MG DAILY 06/07 1245 DC 06/07 PO 1628 Budesonide/ 2 PUF BID 06/07 0900 AC 06/08 Formoterol Fumarate INH 0836 Carvedilol 3.125 MG BID 06/07 1237 DC 06/07 PO 2136 Ceftazidime 2,000 MG IQ8 06/07 0800 AC 06/08 IV 0835 Hydromorphone HCl 1 MG Q4P PRN 06/07 1231 AC 06/07 IV 1830 Hydromorphone HCl 1 MG Q6P PRN 06/07 0030 DC 06/07 IV 0828 Melatonin 5 MG AT BEDTIME 06/07 0045 AC 06/07 PO 0245 Ondansetron HCl 4 MG ONCE ONE 06/07 1130 DC 06/07 IV 06/07 1131 1147 Oxycodone HCl 20 MG Q8 06/07 1400 AC 06/08 PO 0525 Patient Medication 1 ED ONE ONE 06/07 1230 DC Teaching ED 06/07 1231 Zolpidem Tartrate 5 MG AT BEDTIME NEED.. 06/07 2145 AC 06/07 PO 2352 Results Last 24 Hours of Lab Results: Laboratory Tests 06/08 06/07 0701 0910 Chemistry Sodium (137 - 145 mmol/L) 139 Potassium (3.5 - 5.1 mmol/L) 4.6 Chloride (98 - 107 mmol/L) 104 Carbon Dioxide (22 - 30 mmol/L) 27 Anion Gap (5 - 16) 9 BUN (7 - 17 mg/dL) 12 Creatinine (0.5 - 1.0 mg/dL) 0.8 Estimated GFR (>60 ml/min) > 60 BUN/Creatinine Ratio (7 - 25 %) 15.0 Total Bilirubin (0.2 - 1.3 mg/dL) 1.2 Direct Bilirubin (< 0.4 mg/dL) 0.5 H AST (14 - 36 U/L) 46 H ALT (9 - 52 U/L) 76 H Alkaline Phosphatase (<127 U/L) 94 Total Protein (6.3 - 8.2 g/dL) 6.1 L Albumin (3.5 - 5.0 g/dL) 3.1 L Hematology CBC w Diff Pending NO MAN DIFF REQ WBC (4.8 - 10.8 /CUMM) Pending 1.8 L RBC (4.20 - 5.40 /CUMM) Pending 2.28 L Hgb (12.0 - 16.0 G/DL) Pending 8.1 L Hct (37 - 47 %) Pending 24.2 L MCV (81.0 - 99.0 FL) Pending 106.2 H MCH (27.0 - 31.0 PG) Pending 35.5 H MCHC (33.0 - 37.0 G/DL) Pending 33.5 RDW (11.5 - 14.5 %) Pending 27.5 H Plt Count (130 - 400 /CUMM) Pending 39 L MPV (7.4 - 10.4 FL) Pending 10.2 Gran % (42.2 - 75.2 %) 34.7 L Lymphocytes % (20.5 - 51.1 %) 49.6 Monocytes % (1.7 - 9.3 %) 12.2 H Eosinophils % (0 - 5 %) 3.5 Basophils % (0.0 - 2.0 %) 0 Absolute Granulocytes (1.4 - 6.5 /CUMM) 0.6 L Absolute Lymphocytes (1.2 - 3.4 /CUMM) 0.9 L Absolute Monocytes (0.10 - 0.60 /CUMM) 0.2 Absolute Eosinophils (0.0 - 0.7 /CUMM) 0.1 Absolute Basophils (0.0 - 0.2 /CUMM) 0 Serology Hepatitis A IgM Ab (NONREACTIVE) Pending Hep Bs Antigen (NONREACTIVE) Pending Hep B Core IgM Ab Conf (NONREACTIVE) Pending Hepatitis C Antibody (NONREACTIVE) Pending Recent Imaging Studies: Doppler US lower extremity 06/07/2018: No evidence of deep venous thrombosis involving the bilateral lower extremities. Abdomen US 06/07/2018: 1. No evidence of pancreatic pathology. 2. Diffusely echogenic liver raising question of hepatic steatosis. No mass lesions identified to suggest metastatic rectal cancer. 3. Thickened, edematous gallbladder wall without intraluminal stones identified, which is nonspecific. However, the pericholecystic fat appeared somewhat indurated on the recent CT. Early acalculus cholecystitis cannot be excluded. Assessment/Plan Hematology Assessment/Recommendations: Ms. 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 She had initial troponin elevation of 0.16 as a max. Follow-up troponin has been back to normal. She is also noted to be pancytopenic. This is likely related to her MDS and lenalidomide. She is currently on her off week for lenalidomide. She did receive 1 unit of packed RBC. Ultrasound of the lower extremity was negative for DVT. She did have a elevation in the LFTs which may be related to lenalidomide or underlying gallbladder issue. Ultrasound did not demonstrate any active infection but does note some gallbladder wall thickening. Gastroenterology was consulted. They recommended follow-up ultrasound. Her LFTs did improve a little bit today. Overall she is improving clinically. She may need another unit of packed RBC given she will likely progressed with her anemia in the next few days. Pancytopenia: -transfuse with platelet if <10,000, <20,000 with fever, or <50,000 with bleeding -transfuse with pRBC if hgb <8 Elevated troponin: -cardiology following -aspirin 81 mg MDS: -hold lenalidomide -follow up as outpatient Please call [phone] with any questions or concerns. Problem List: 1. MDS (myelodysplastic syndrome) with 5q deletion 2. Pancytopenia 3. Elevated troponin
--- NOTE | 2018-06-08 09:28 | PN- Cardiology ---
Subjective Subjective: The patient is awake, alert, overall improved The events of the last 24 hours as well as telemetry were reviewed. Review of Systems: The review of systems is negative for chest pains, palpitations nor lightheadedness. The remainder of the 14 point review of systems is noncontributory with the exception of above. Objective Vital Signs and I&Os Vital Signs Date Time Temp Pulse Resp B/P B/P Pulse O2 O2 Flow FiO2 Mean Ox Delivery Rate 06/08 0706 97.8 62 20 138/64 95 06/07 2143 93 Nasal 2.0L Cannula 06/07 2136 69 142/64 06/07 2133 98.6 69 18 142/64 93 Nasal 2.0L Cannula 06/07 1629 65 142/84 06/07 1424 97.5 64 18 114/58 93 Nasal 2.0L Cannula 06/07 1055 Nasal 2.0L Cannula Intake & Output 06/08 1600 06/08 0800 06/08 0000 06/07 1600 06/07 0800 06/07 0000 Intake Total 080 634 4732 Output Total 100 200 200 Balance -100 -200 199 159 4491 Intake, Blood 500 Product Intake, IV 50 1000 Intake, Oral 500 220 Output, Stool 200 Output, Urine 100 200 Patient 253 lb 256 lb 235 lb Weight Weight Bed scale Measurement Method Physical Exam: General: Nontoxic, no apparent distress. HEENT: Sclera and conjunctiva within normal limits, without xanthelasmas. Neck: Carotids 2+ without bruits. Respiratory: Scattered rhonchi, air movement is good, without accessory respiratory muscle use. Heart: Regular rate and rhythm, without murmurs, without JVD. Abdomen: Soft, nontender, no masses, normoactive bowel sounds. Extremities: Without clubbing, cyanosis, without edema. Neuro: Nonfocal exam, strength, 5 out of 5 Skin: Within normal limits without lesions. Psych: Mood and affect: Normal Current Medications: Current Medications Sig/Dontae Start time Last Medication Dose Route Stop Time Status Admin Albuterol Sulfate 2 PUF Q4P PRN 06/07 1100 AC INH Albuterol Sulfate 2 PUF Q6P PRN 06/07 0030 AC INH Aspirin 81 MG DAILY 06/07 1245 DC 06/07 PO 1628 Budesonide/ 2 PUF BID 06/07 09 AC 06/08 Formoterol Fumarate INH 0836 Carvedilol 3.125 MG BID 06/07 1237 DC 06/07 PO 2136 Ceftazidime 2,000 MG IQ8 06/07 0800 AC 06/08 IV 0835 Hydromorphone HCl 1 MG Q4P PRN 06/07 1231 AC 06/07 IV 1830 Hydromorphone HCl 1 MG Q6P PRN 06/07 0030 DC 06/07 IV 0828 Melatonin 5 MG AT BEDTIME 06/07 0045 AC 06/07 PO 0245 Ondansetron HCl 4 MG ONCE ONE 06/07 1130 DC 06/07 IV 06/07 1131 1147 Oxycodone HCl 20 MG Q8 06/07 1400 AC 06/08 PO 0525 Patient Medication 1 ED ONE ONE 06/07 1230 DC Teaching ED 06/07 1231 Zolpidem Tartrate 5 MG AT BEDTIME NEED.. 06/07 2145 AC 06/07 PO 2352 Results Last 48 Hrs of Labs/Mics: Laboratory Tests 06/08/18 0701: Anion Gap 9, Estimated GFR > 60, BUN/Creatinine Ratio 15.0, Total Bilirubin 1.2, Direct Bilirubin 0.5 H, AST 46 H, ALT 76 H, Alkaline Phosphatase 94, Total Protein 6.1 L, Albumin 3.1 L, CBC w Diff MAN DIFF ORDERED, WBC Pending, RBC Pending, Hgb Pending, Hct Pending, MCV Pending, MCH Pending, MCHC Pending, RDW Pending, Plt Count Pending, MPV Pending, Gran % Pending, Lymphocytes % Pending, Monocytes % Pending, Eosinophils % Pending, Basophils % Pending, Absolute Granulocytes Pending, Segmented Neutrophils Pending, Absolute Lymphocytes Pending, Absolute Monocytes Pending, Absolute Eosinophils Pending, Absolute Basophils Pending, Hepatitis A IgM Ab Pending, Hep Bs Antigen Pending, Hep B Core IgM Ab Conf Pending, Hepatitis C Antibody Pending 06/07/18 0910: CBC w Diff NO MAN DIFF REQ, RBC 2.28 L, MCV 106.2 H, MCH 35.5 H, MCHC 33.5, RDW 27.5 H, MPV 10.2, Gran % 34.7 L, Lymphocytes % 49.6, Monocytes % 12.2 H, Eosinophils % 3.5, Basophils % 0, Absolute Granulocytes 0.6 L, Absolute Lymphocytes 0.9 L, Absolute Monocytes 0.2, Absolute Eosinophils 0.1, Absolute Basophils 0 06/07/18 0800: Troponin I 0.09 06/07/18 0714: Anion Gap 9, Estimated GFR > 60, BUN/Creatinine Ratio 14.3, Triglycerides 85, Cholesterol 108, LDL Cholesterol, Calc 35 L, HDL Cholesterol 56, Cholesterol/ HDL Ratio 2 06/07/18 0155: Troponin I 0.16 *H 06/06/18 2240: Lactic Acid Cancelled 06/06/18 2009: Anion Gap 9, Estimated GFR > 60, BUN/Creatinine Ratio 15.0, Glucose 147 H, Lactic Acid 1.4, Calcium 8.1 L, Total Bilirubin 1.4 H, Direct Bilirubin 0.6 H , AST 76 H, ALT 85 H, Alkaline Phosphatase 100, Troponin I 0.15 *H, Total Protein 6.4, Albumin 3.3 L, Amylase 32, Lipase 48, CBC w Diff MAN DIFF ORDERED, RBC 2.07 L, MCV 108.1 H, MCH 35.9 H, MCHC 33.2, RDW 27.7 H, MPV 10.2, Gran % 17.1 L, Lymphocytes % 73.0 H, Monocytes % 9.5 H, Eosinophils % 0.4, Basophils % 0, Absolute Granulocytes 0.2 L, Segmented Neutrophils 26 L, Band Neutrophils 3, Absolute Lymphocytes 1.0 L, Lymphocytes 58 H, Monocytes 3, Absolute Monocytes 0.1, Eosinophils 9 H, Absolute Eosinophils 0, Basophils 1, Absolute Basophils 0, Platelet Estimate DECREASED, Hypochromic-Microcytic 1+, Poikilocytosis 1+, Anisocytosis 2+, Microcytic Cells 1+, Macrocytic Cells 2+, Ovalocytes FEW, Stomatocytes FEW, Eland Cells FEW, Elliptocytes 1+, Schistocytes FEW Assessment/Plan Assessment/Plan 72-year-old woman with a past medical history of COPD, hypertension, rectal CA myelodysplastic syndrome, as well as anemia with requirements of transfusions. She presents to our hospital with symptoms of weakness and dyspnea. She was noted to have a mildly elevated troponin isoenzyme as well as significant hypoxia with underlying anemia on presentation. Troponin isoenzyme elevation: The patient presented with mild troponin isoenzyme elevation in the setting of anemia and significant hypoxia. The overall pattern of her troponin presentation in the context of her presentation with anemia, hypoxia and an elevated blood pressure suggest an underlying supply demand mismatch, consistent with an acute type II on ST segment elevation myocardial infarction. This is not consistent with an acute coronary syndrome. An echocardiogram is pending for today. The patient has been intolerant of beta blockers due to significant bradycardia with low dose. She should however be maintained on aspirin as well as initiated on a statin. Hypertension: Improved on her current medication regimen. We will continue the same further titrated as an outpatient. Anemia/myelodysplastic syndrome: Patient is followed by hematology and we will continue recommendations as per the same. The addition of an aspirin at 81 mg daily would be beneficial from a cardiac standpoint. Continue telemetry? No
--- NOTE | 2018-06-08 10:21 | Patient Discharge Instructions ---
Discharge Instructions General Discharge Information You were seen/treated for: Elevated troponins (cardiac Enzymes), Pancytopenia You had these procedures: Blood Transfusions Watch for these problems: Chest pain, palpitations, Shortness of breath,fever, chills: If yes, please visit your nearest emergency department Special Instructions: please follow up with your primary care 1 week after discharge. Please follow-up with your property management assistant/oncologist 1 week after discharge. Follow-up with your case maker 1 week after discharge. Diet Continue normal diet: Yes Recommended Diet: Heart Healthy Activity Full Activity/No Limits: Yes (As tolerated ) Acute Coronary Syndrome Inclusion Criteria At DC or during hospital stay patient has or had the following: ACS DIAGNOSIS No Discharge Core Measures Meds if any: Prescribed or Continued at Discharge Meds if any: NOT Prescribed or Continued at Discharge Congestive Heart Failure Inclusion Criteria At DC or during hospital stay patient has or had the following: CHF DIAGNOSIS No Discharge Core Measures Meds if any: Prescribed or Continued at Discharge Meds if any: NOT Prescribed or Continued at Discharge Cerebrovascular accident Inclusion Criteria At DC or during hospital stay patient has or had the following: CVA/TIA Diagnosis No Discharge Core Measures Meds if any: Prescribed or Continued at Discharge Meds if any: NOT Prescribed or Continued at Discharge Venous thromboembolism Inclusion Criteria VTE Diagnosis No VTE Type NONE VTE Confirmed by (Test) NONE Discharge Core Measures - Per Current guidelines, there needs to be overlap - treatment for the first 5 days of Warfarin therapy. - If discharged on Warfarin prior to 5 days of - overlap therapy, the patient will need to be - assessed for post discharge needs including - *Post discharge parental anticoagulation - *Warfarin and/or parental anticoagulation education - *Follow up date to check INR post discharge At least 5 days overlap therapy as Inpatient No Meds if any: Prescribed or Continued at Discharge Note: Overlap Therapy is Warfarin and Anticoagulant Meds if any: NOT Prescribed or Continued at Discharge
[2018-06-08 15:13] VITALS: BP 132/66
[2018-06-08 22:56] VITALS: BP 142/68
[2018-06-09 06:00] VITALS: BP 146/80
--- NOTE | 2018-06-09 06:52 | PN- Housestaff ---
Lola Sheridan 06/09/18 0652: Subjective Follow-up For: Elevated troponins: Type II DE, pancytopenia, MDS Complaints: no complaints Tele-Events Since Last Visit: Not on telemetry Subjective: No complaints/no acute events overnight Review of Systems Constitutional: Reports: see HPI. Objective Last 24 Hrs of Vital Signs/I&O Vital Signs Date Time Temp Pulse Resp B/P B/P Pulse O2 O2 Flow FiO2 Mean Ox Delivery Rate 06/09 08 Nasal 2.0L Cannula 06/09 06 97.9 70 20 146/80 95 06/09 0000 93 Nasal 2.0L Cannula 06/08 2256 97.7 68 18 142/68 92 Nasal 2.0L Cannula 06/08 1513 97.9 66 18 132/66 92 Intake & Output 06/09 1600 06/09 0806/09 0000 Intake Total Output Total Balance Patient 251 lb Weight Weight Bed scale Measurement Method Physical Exam General Appearance: Alert, Oriented X3, Cooperative, No Acute Distress Skin: No Rashes, No Breakdown, No Significant Lesion Skin Temp/Moisture Exam: Cool/Dry HEENT: Atraumatic Neck: Supple Cardiovascular: Regular Rate, Normal S1, Normal S2, No Murmurs Lungs: Clear to Auscultation, Normal Air Movement Abdomen: Normal Bowel Sounds, Soft, No Tenderness, No Hepatospenomegaly Neurological: Normal Gait, Normal Speech, Strength at 5/5 X4 Ext, Normal Tone Extremities: No Clubbing (b/l l/l pitting edema), No Cyanosis Assessment/Plan Assessment: Is a 72-year-old woman with a past medical history of COPD, hypertension, rectal carcinoma, myelodysplastic syndrome, anemia requiring transfusion. She presented with symptoms of weakness and shortness of breath. Her troponins were elevated mildly and significant hypoxia with underlying anemia. Vitals: Temp 97.9, pulse 70, respiratory rate 20, BP 146/80, 95% on 2 L oxygen. She is on 2 L oxygen at home while ambulating and sleeping. Labs: Total bilirubin 0.9, direct bilirubin 0.3, AST 27, ALT 69, alk phos 100, total protein 6.3, albumin 3.1 Problem list: 1. pancytopenia 2. MDS with 5 q. deletion 3. elevated troponin: Type II DE Plan: * She is off telemetry * Continue bronchodilator therapy and continue oxygen therapy * She is getting 1 unit of packed red blood cells transfused today to optimize her hemoglobin. monitor H&H * Plan is to diurese her today * Mobility as tolerated * Surgery consult: For questionable acalculous gall bladder. We will do conservative measures for her asymptomatic acalculus cholecystitis. Her transaminases are trending downwards * Non STEMI: She cannot tolerate beta-blockers, and she is allergic to aspirin. Cardiology recommended to start Plavix 75 mg once daily * continue holding lenalidomide * transfuse with platelets if <10,000, <20,000 with fever, or <50,000 with bleeding * Follow as an outpatient: Primary care physician, inspector filters, oncologist, sports attorney, roadway engineer Problem List: 1. Pancytopenia 2. MDS (myelodysplastic syndrome) with 5q deletion 3. Elevated troponin Pain Ratin Pain Location: Generalized Pain Goal: Pain 4 or less Pain Plan: Dilaudid, oxycodone CR Tomorrow's Labs & Rationales: CBCT, BP, lfts Benson Lock MD 06/09/18 1155: Attending MD Review Statement Attending Statement Attending MD Statement: examined this patient, discuss w/resident/PA/SPORTS STATISTICIAN, agreed w/resident/PA/SPORTS STATISTICIAN, reviewed EMR data (avail), discussed with nursing, discussed with case mgmt, amended to note Attending Assessment/Plan: Patient seen and examined resting comfortably in bed and not in acute distress. No issues overnight. Patient however continues to complain of shortness of breath with mild exertion. Denies chest pain. Denies palpitations. She is maintaining saturation on 2 L of oxygen. Symptoms are most likely secondary to her moderate to severe pulmonary emphysema. We will continue bronchodilator therapy. Continue oxygen supplementation as needed. She remains anemic. She is transfusion dependent due to her MDS. She has had several transfusions in the past. She will likely continue to require transfusions for her inspector filters. Recommendations are to transfuse 1 more unit of PRBC today to further optimize her hemoglobin levels. She will follow closely with hematology service for ongoing monitoring as an outpatient. Imaging was suggestive of acalculous cholecystitis. Patient fortunately is asymptomatic with no complaints of nausea vomiting or abdominal pain. She has no tenderness on examination. Recommend conservative management in view of her comorbidities. Awaiting formal consultation from the general surgery service. Fortunately her transaminases continue to trend downwards. She had evidence of non-ST elevation myocardial infarction due to demand mismatch. She is being managed conservatively. She unfortunately could not tolerate beta-blockers. She has an allergy to aspirin and cardiology service as recommended at the [place] therapy with Plavix. This has been started and will be continued as an outpatient. She will be monitored closely for bleeding by her inspector filters. She did test guaiac-positive. She does have history of rectal cancer status post chemoradiation as well as surgical intervention. She also has history of rectovaginal fistula and perirectal abscess. Her anemia is currently presumed to be due to her myelodysplastic syndrome. She is having brown stools is guaiac positive. She does not appear to be having severe gastrointestinal bleeding. She is to follow-up with her import export clerk in the outpatient setting.
--- NOTE | 2018-06-09 07:24 | PN- Hematology ---
Subjective Subjective: She is still "winded." She denies any nausea or vomiting. She has no fever. She denies any diarrhea. She denies any chest pain. Review of Systems Constitutional: Reports: malaise, weakness. Denies: chills, fever. Cardiovascular: Denies: chest pain. Respiratory: Reports: short of breath. Gastrointestinal: Denies: abdominal pain. Musculoskeletal: Reports: joint pain, muscle pain. Neurological/Psychological: Denies: anxiety, depressed. Hematologic/Endocrine: Reports: bruising. All Other Systems: Reviewed and Negative Objective Vital Signs and I&Os Vital Signs Date Time Temp Pulse Resp B/P B/P Pulse O2 O2 Flow FiO2 Mean Ox Delivery Rate 06/09 06 97.9 70 20 146/80 95 06/09 0000 93 Nasal 2.0L Cannula 06/08 2256 97.7 68 18 142/68 92 Nasal 2.0L Cannula 06/08 1513 97.9 66 18 132/66 92 06/08 0800 Nasal 2.0L Cannula Intake & Output 06/09 0800 06/09 0000 06/08 1600 06/08 0800 06/08 0000 06/07 1600 Intake Total 500 550 Output Total 100 200 200 Balance 500 -100 -200 350 Intake, IV 50 Intake, Oral 500 500 Number 1 Bowel Movements Output, Stool 200 Output, Urine 100 200 Patient 113.965 kg 114.872 kg Weight Weight Bed scale Measurement Method Physical Exam: General Appearance: well developed/nourished, no apparent distress, alert, awake , comfortable, obese Head: atraumatic, normal appearance Ears, Nose, Throat: normal pharynx Neck: supple Respiratory: chest non-tender, no respiratory distress, quiet respiration, On 2L NC Cardiovascular: regular rate/rhythm Gastrointestinal: soft, non-tender, no organomegaly Extremities: no edema, tenderness (diffusely in BLE) Neurologic/Psych: awake, alert, oriented x 3 Cranial Nerves: normal speech Skin: multiple upper extremity ecchymoses Lymphatic: no anterior cervical pricilla Current Medications: Current Medications Sig/Dontae Start time Last Medication Dose Route Stop Time Status Admin Albuterol Sulfate 2 PUF Q4P PRN 06/07 1100 AC INH Albuterol Sulfate 2 PUF Q6P PRN 06/07 0030 AC INH Aspirin 81 MG DAILY 06/07 1245 DC 06/07 PO 1628 Atorvastatin Calcium 20 MG 1700 06/08 1700 AC 06/08 PO 1647 Budesonide/ 2 PUF BID 06/07 0900 AC 06/08 Formoterol Fumarate INH 2111 Carvedilol 3.125 MG BID 06/07 1237 DC 06/07 PO 2136 Ceftazidime 2,000 MG IQ8 06/07 0800 DC 06/08 IV 0835 Hydromorphone HCl 1 MG Q4P PRN 06/07 1231 AC 06/09 IV 0326 Melatonin 5 MG AT BEDTIME 06/07 0045 AC 06/07 PO 0245 Oxycodone HCl 20 MG Q8 06/07 1400 AC 06/09 PO 0619 Patient Medication 1 ED ONE ONE 06/08 1715 DC 06/08 Teaching ED 06/08 1716 1718 Zolpidem Tartrate 5 MG AT BEDTIME NEED.. 06/07 2145 AC 06/08 PO 2242 Results Last 24 Hours of Lab Results: Laboratory Tests 06/09 06/08 06/08 0630 1600 1400 Chemistry Total Bilirubin Pending Direct Bilirubin Pending AST Pending ALT Pending Alkaline Phosphatase Pending Total Protein Pending Albumin Pending Hematology CBC w Diff Pending Cancelled Cancelled WBC Pending Cancelled Cancelled RBC Pending Cancelled Cancelled Hgb Pending Cancelled Cancelled Hct Pending Cancelled Cancelled MCV Pending Cancelled Cancelled MCH Pending Cancelled Cancelled MCHC Pending Cancelled Cancelled RDW Pending Cancelled Cancelled Plt Count Pending Cancelled Cancelled MPV Pending Cancelled Cancelled Assessment/Plan Hematology Assessment/Recommendations: Ms. 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 Troponin has normalized. US of the lower extremity is negative. She is on aspirin. Her hemoglobin remains low. GI is seeing patient for mildly elevated LFT. Breathing is still not back to baseline. She has no obvious acute etiology on CTA. This may be related to underlying MDS and lenalidomide. She should get 1 unit of pRBC today. Pancytopenia: -transfuse with platelet if <10,000, <20,000 with fever, or <50,000 with bleeding -transfuse with pRBC if hgb <8 -transfuse 1 unit of pRBC today Elevated troponin: -cardiology following -aspirin 81 mg MDS: -continue to hold lenalidomide -follow up as outpatient Please call [phone] with any questions or concerns. Problem List: 1. Pancytopenia due to antineoplastic chemotherapy 2. MDS (myelodysplastic syndrome) with 5q deletion 3. Symptomatic anemia
--- NOTE | 2018-06-09 07:24 | ECHOCARDIOGRAM REPORT ---
CARINE PAYTON Age: 72 : 1945 Gender: F Exam Date: 06/08/2018 11:20 Exam Location: [address] Ht (in): 68 Wt (lb): 256 BSA: 2.41 BP: 170 / 74 Ordering Physician: Tangela Patel MD Referring Physician: Tangela Patel MD Technologist: Andrade Rios [facility] Room Number: 171-1 Indications: LIGHTHEADEDNESS Rhythm: Sinus Technical Quality: Poor window FINDINGS Left Ventricle Normal size left ventricle. Left ventricular wall thickness at upper limits of normal. Normal left ventricular ejection fraction estimated at 60-65%. Right Ventricle Right ventricle not well visualized. Right Atrium Right atrium not well visualized, grossly normal. Left Atrium Normal left atrial size. Mitral Valve Mitral valve not well visualized, grossly normal. Trace to mild mitral regurgitation. Aortic Valve Aortic valve not well visualized, grossly normal. Tricuspid Valve Tricuspid valve not well visualized, grossly normal. Mild-to- moderate tricuspid regurgitation. Right ventricular systolic pressure estimated to be elevated at 40-50 mmHg. Pulmonic Valve Pulmonic valve not well visualized, grossly normal. Pericardium No pericardial effusion. Great Vessels Normal size aortic root. CONCLUSIONS Poor Echo window. Normal left ventricular systolic function. Right ventricle not well visualized. Moderate Pulmonary hypertension by doppler. Tesfaye Cheatham M.D. (Electronically Signed) Final Date: 09 June 2018 07:20 MEASUREMENTS (Male / Female) Normal Values 2D ECHO LV Diastolic Diameter PLAX 4.9 cm 4.2 - 5.9 / 3.9 - 5.3 cm LV Systolic Diameter PLAX 2.5 cm 2.1 - 4.0 cm LV Fractional Shortening PLAX 49.0 % 25 - 46 % LV Ejection Fraction 2D Teich 80.2 % IVS Diastolic Thickness 1.1 cm LVPW Diastolic Thickness 1.0 cm LV Relative Wall Thickness 0.4 LVOT Diameter 1.8 cm Aortic Root Diameter 2.5 cm LA Systolic Diameter LX 3.2 cm 3.0 - 4.0 / 2.7 - 3.8 cm LA Volume 42.0 cm 18 - 58 / 22 - 52 cm Ascending Aorta Diameter 2.7 cm DOPPLER AV Peak Velocity 214.0 cm/s AV Peak Gradient 18.3 mmHg AV Mean Velocity 128.0 cm/s AV Mean Gradient 8.0 mmHg AV Velocity Time Integral 44.0 cm LVOT Peak Velocity 125.0 cm/s LVOT Peak Gradient 6.3 mmHg LVOT Mean Velocity 77.7 cm/s LVOT Mean Gradient 3.0 mmHg LVOT Velocity Time Integral 30.1 cm LVOT Stroke Volume 76.6 cm AV Area Cont Eq vti 1.7 cm AV Area Cont Eq pk 1.5 cm MV Peak Velocity 146.0 cm/s MV Peak Gradient 8.5 mmHg MV Mean Velocity 73.5 cm/s MV Mean Gradient 3.0 mmHg Mitral E Point Velocity 116.0 cm/s Mitral A Point Velocity 132.0 cm/s Mitral E to A Ratio 0.9 MV PHT Velocity 125.0 cm/s MV Deceleration [place] 493.0 cm/s MV Pressure Half Time 76.1 ms MV Area PHT 2.9 cm MV Deceleration Time 268.0 ms TR Peak Velocity 371.0 cm/s TR Peak Gradient 55.1 mmHg Right Atrial Pressure 10.0 mmHg Pulmonary Artery Systolic Pressure 65.1 mmHg Right Ventricular Systolic Pressure 65.1 mmHg PV Peak Velocity 106.0 cm/s PV Peak Gradient 4.5 mmHg PV Mean Velocity 73.9 cm/s PV Mean Gradient 2.0 mmHg PV Velocity Time Integral 24.7 cm LV E' Lateral Velocity 7.6 cm/s Mitral E to LV E' Lateral Ratio 15.3 LV E' Septal Velocity 7.0 cm/s Mitral E to LV E' Septal Ratio 16.5
[2018-06-09 08:33] LABS: ABSOLUTE BASOPHIL COUNT 0 /CUMM (0.0-0.2); ABSOLUTE EOSINOPHIL COUNT 0.1 /CUMM (0.0-0.7); ABSOLUTE GRANULOCYTE CT 0.7 /CUMM (1.4-6.5); ABSOLUTE LYMPH COUNT 1.2 /CUMM (1.2-3.4); ABSOLUTE MONOCYTE COUNT 0.1 /CUMM (0.10-0.60); BASOPHIL % 1.1 % (0.0-2.0); EOSINOPHIL % 2.8 % (0-5); GRANULOCYTE % 32.7 % (42.2-75.2); HEMATOCRIT 24.3 % (37-47); MEAN CORPUSCULAR HGB 35.8 PG (27.0-31.0); MEAN CORPUSCULAR HGB CONC 33.1 G/DL (33.0-37.0); MEAN CORPUSCULAR VOLUME 108.1 FL (81.0-99.0); MEAN PLATELET VOLUME 9.8 FL (7.4-10.4); RBC DISTRIBUTION WIDTH 27.8 % (11.5-14.5); RED BLOOD CELL CT 2.25 /CUMM (4.20-5.40)
[2018-06-09 10:07] LABS: PLATELET COUNT 44 /CUMM (130-400)
--- NOTE | 2018-06-09 10:40 | PN- Cardiology ---
Subjective Subjective: The patient is awake, alert, states feeling improved The events of the last 24 hours as well as telemetry were reviewed. Review of Systems: The review of systems is negative for chest pains, palpitations nor lightheadedness. The remainder of the 14 point review of systems is noncontributory with the exception of above. Objective Vital Signs and I&Os Vital Signs Date Time Temp Pulse Resp B/P B/P Pulse O2 O2 Flow FiO2 Mean Ox Delivery Rate 06/09 08 Nasal 2.0L Cannula 06/09 06 97.9 70 20 146/80 95 06/09 0000 93 Nasal 2.0L Cannula 06/08 2256 97.7 68 18 142/68 92 Nasal 2.0L Cannula 06/08 1513 97.9 66 18 132/66 92 Intake & Output 06/09 1600 06/09 0806/09 0000 06/08 1600 06/08 0806/08 0000 Intake Total 500 Output Total 100 200 Balance 500 -100 -200 Intake, Oral 500 Number 1 Bowel Movements Output, Urine 100 200 Patient 251 lb 253 lb Weight Weight Bed scale Measurement Method Physical Exam: General: Nontoxic, no apparent distress. HEENT: Sclera and conjunctiva within normal limits, without xanthelasmas. Neck: Carotids 2+ without bruits. Respiratory: Scattered rhonchi, air movement is good, without accessory respiratory muscle use. Heart: Regular rate and rhythm, without murmurs, without JVD. Abdomen: Soft, nontender, no masses, normoactive bowel sounds. Extremities: Without clubbing, cyanosis, without edema. Neuro: Nonfocal exam, strength, 5 out of 5 Skin: Within normal limits without lesions. Psych: Mood and affect: Normal Current Medications: Current Medications Sig/Dontae Start time Last Medication Dose Route Stop Time Status Admin Albuterol Sulfate 2 PUF Q4P PRN 06/07 1100 AC INH Albuterol Sulfate 2 PUF Q6P PRN 06/07 0030 AC INH Atorvastatin Calcium 20 MG 1700 06/08 1700 AC 06/08 PO 1647 Budesonide/ 2 PUF BID 06/07 0900 AC 06/09 Formoterol Fumarate INH 0749 Ceftazidime 2,000 MG IQ8 06/07 0800 DC 06/08 IV 0835 Hydromorphone HCl 1 MG Q4P PRN 06/07 1231 AC 06/09 IV 0326 Melatonin 5 MG AT BEDTIME 06/07 0045 AC 06/07 PO 0245 Oxycodone HCl 20 MG Q8 06/07 1400 06/09 PO 0619 Patient Medication 1 ED ONE ONE 06/08 1715 OR 06/08 Teaching ED 06/08 1716 1718 Zolpidem Tartrate 5 MG AT BEDTIME NEED.. 06/07 2145 AC 06/08 PO 2242 Results Last 48 Hrs of Labs/Mics: Laboratory Tests 06/09/18 0630: Total Bilirubin 0.9, Direct Bilirubin 0.3, AST 27, ALT 69 H, Alkaline Phosphatase 100, Total Protein 6.3, Albumin 3.1 L, CBC w Diff MAN DIFF ORDERED, RBC 2.25 L, MCV 108.1 H, MCH 35.8 H, MCHC 33.1, RDW 27.8 H, MPV 9.8, Gran % 32.7 L, Lymphocytes % 58.9 H, Monocytes % 4.5, Eosinophils % 2.8, Basophils % 1.1, Absolute Granulocytes 0.7 L, Segmented Neutrophils Pending, Absolute Lymphocytes 1.2, Absolute Monocytes 0.1, Absolute Eosinophils 0.1, Absolute Basophils 0 06/08/18 1600: CBC w Diff Cancelled, WBC Cancelled, RBC Cancelled, Hgb Cancelled, Hct Cancelled , MCV Cancelled, MCH Cancelled, MCHC Cancelled, RDW Cancelled, Plt Count Cancelled, MPV Cancelled 06/08/18 1400: CBC w Diff Cancelled, WBC Cancelled, RBC Cancelled, Hgb Cancelled, Hct Cancelled , MCV Cancelled, MCH Cancelled, MCHC Cancelled, RDW Cancelled, Plt Count Cancelled, MPV Cancelled 06/08/18 0701: Anion Gap 9, Estimated GFR > 60, BUN/Creatinine Ratio 15.0, Total Bilirubin 1.2, Direct Bilirubin 0.5 H, AST 46 H, ALT 76 H, Alkaline Phosphatase 94, Total Protein 6.1 L, Albumin 3.1 L, CBC w Diff MAN DIFF ORDERED, RBC 2.12 L, MCV 106.5 H, MCH 35.9 H, MCHC 33.7, RDW 27.6 H, MPV 10.3, Gran % 35.0 L, Lymphocytes % 49.8, Monocytes % 4.8, Eosinophils % 10.0 H, Basophils % 0.4, Absolute Granulocytes 0.6 L, Segmented Neutrophils 18 L, Band Neutrophils 8 H , Absolute Lymphocytes 0.8 L, Lymphocytes 53 H, Monocytes 6, Absolute Monocytes 0.1, Eosinophils 10 H, Absolute Eosinophils 0.2, Basophils 5 H, Absolute Basophils 0, Platelet Estimate DECREASED, Polychromasia 1+, Basophilic Stippling 1+, Anisocytosis 2+, Macrocytic Cells 2+, Hepatitis A IgM Ab NONREACTIVE, Hep Bs Antigen NONREACTIVE, Hep B Core IgM Ab Conf NONREACTIVE, Hepatitis C Antibody NONREACTIVE Assessment/Plan Assessment/Plan 72-year-old woman with a past medical history of COPD, hypertension, rectal CA myelodysplastic syndrome, as well as anemia with requirements of transfusions. She presents to our hospital with symptoms of weakness and dyspnea. She was noted to have a mildly elevated troponin isoenzyme as well as significant hypoxia with underlying anemia on presentation. Troponin isoenzyme elevation: The patient presented with mild troponin isoenzyme elevation in the setting of anemia and significant hypoxia. The overall pattern of her troponin presentation in the context of her presentation with anemia, hypoxia and an elevated blood pressure suggest an underlying supply demand mismatch, consistent with an acute type II on ST segment elevation myocardial infarction. This is not consistent with an acute coronary syndrome. The echocardiogram demonstrated normal wall motion without focal abnormalities; however, was a suboptimal study due to image quality. The patient has been intolerant of beta blockers due to significant bradycardia with low dose. As she has an allergy to aspirin, an agent such as clopidogrel at 75 mg daily should be initiated. Hypertension: Improved on her current medication regimen. We will continue the same further titrated as an outpatient. Anemia/myelodysplastic syndrome: Patient is followed by hematology and we will continue recommendations as per the same. The addition of an clopidogrel at 75 mg daily daily would be beneficial from a cardiac standpoint. Continue telemetry? No
--- NOTE | 2018-06-09 13:29 | Cons- General Surgery ---
General Information and HPI Consulting Request Date of Consult: 06/09/18 Requested By: Benson Lock MD Reason for Consult: ?cholecystitis? Source of Information: patient Exam Limitations: no limitations History of Present Illness: This is a 72-year-old female who presented to the emergency room with weakness and shortness of breath. Patient is with what appears to be end-stage malignancy. She has just started chemotherapy like medication and presented to the emergency room. Patient underwent a CT scan and ultrasound that had a questionable finding of a calculus cholecystitis. Patient denies any abdominal pain, nausea, or any issues with eating recently. Patient is laying comfortably in bed. Allergies/Medications Allergies: Coded Allergies: aspirin (Intermediate, GI UPSET 06/06/18) gluten (Mild, GI UPSET 06/06/18) lactase (From DAIRY AID) (Mild, LACTOSE INTOLERANT 06/06/18) Home Med List: Albuterol Sulfate (Proair Hfa) 90 MCG HFA.AER.AD 2 PUF INH Q6H PRN RESPIRATORY (Reported) Budesonide/Formoterol Fumarate (Symbicort 160-4.5 Mcg Inhaler) 160 MCG-4.5 MCG/ ACTUATION HFA.AER.AD 2 PUF INH BID RESPIRATORY (Reported) Hydromorphone HCl 4 MG TABLET 1 TAB PO Q6H PRN PAIN (Reported) Ipratropium/Albuterol Sulfate (Combivent Respimat Inhal [place]) 20 MCG-100 MCG/ ACTUATION MIST.INHAL 1 PUFF INH 4XDAILY RESP. 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 Home Who Do You Live With? spouse Services at Home: None Smoking Status: Former Smoker ETOH Use: denies use Illicit Drug Use: denies illicit drug use Functional Ability ADLs Independent: dressing, eating, toileting, bathing. Ambulation: independent IADLs Independent: shopping, housework, finances, food prep, telephone, transportation , medication admin. Employment History Employment: Retired Review of Systems Review of Systems: All negative except for the above-mentioned pertinent positives. Exam & Diagnostic Data Vital Signs and I&O Vital Signs Date Time Temp Pulse Resp B/P B/P Pulse O2 O2 Flow FiO2 Mean Ox Delivery Rate 06/09 800 Nasal 2.0L Cannula 06/09 06 97.9 70 20 146/80 95 06/09 0000 93 Nasal 2.0L Cannula 06/08 2256 97.7 68 18 142/68 92 Nasal 2.0L Cannula 06/08 1513 97.9 66 18 132/66 92 Intake & Output 06/09 1600 06/09 0800 06/09 0000 06/08 1600 06/08 0800 06/08 0000 Intake Total 500 Output Total 100 200 Balance 500 -100 -200 Intake, Oral 500 Number 1 Bowel Movements Output, Urine 100 200 Patient 251 lb 251 lb 253 lb Weight Weight Bed scale Measurement Method Physical Exam General Appearance: no apparent distress, alert, awake Eyes: Bilateral: normal appearance. Neck: supple Respiratory: no respiratory distress Cardiovascular: regular rate/rhythm, edema Gastrointestinal: soft, non-tender Back: normal range of motion Extremities: pedal edema Neurologic/Psych: awake, alert, oriented x 3, normal mood/affect Last 24 Hours of Labs: Laboratory Tests 06/09 06/08 0630 1600 Chemistry Total Bilirubin (0.2 - 1.3 mg/dL) 0.9 Direct Bilirubin (< 0.4 mg/dL) 0.3 AST (14 - 36 U/L) 27 ALT (9 - 52 U/L) 69 H Alkaline Phosphatase (<127 U/L) 100 Total Protein (6.3 - 8.2 g/dL) 6.3 Albumin (3.5 - 5.0 g/dL) 3.1 L Hematology CBC w Diff MAN DIFF ORDERED Cancelled WBC (4.8 - 10.8 /CUMM) 2.0 L Cancelled RBC (4.20 - 5.40 /CUMM) 2.25 L Cancelled Hgb (12.0 - 16.0 G/DL) 8.1 L Cancelled Hct (37 - 47 %) 24.3 L Cancelled MCV (81.0 - 99.0 FL) 108.1 H Cancelled MCH (27.0 - 31.0 PG) 35.8 H Cancelled MCHC (33.0 - 37.0 G/DL) 33.1 Cancelled RDW (11.5 - 14.5 %) 27.8 H Cancelled Plt Count (130 - 400 /CUMM) 44 L Cancelled MPV (7.4 - 10.4 FL) 9.8 Cancelled Gran % (42.2 - 75.2 %) 32.7 L Lymphocytes % (20.5 - 51.1 %) 58.9 H Monocytes % (1.7 - 9.3 %) 4.5 Eosinophils % (0 - 5 %) 2.8 Basophils % (0.0 - 2.0 %) 1.1 Absolute Granulocytes (1.4 - 6.5 /CUMM) 0.7 L Segmented Neutrophils (42.2 - 75.2 %) Pending Absolute Lymphocytes (1.2 - 3.4 /CUMM) 1.2 Absolute Monocytes (0.10 - 0.60 /CUMM) 0.1 Absolute Eosinophils (0.0 - 0.7 /CUMM) 0.1 Absolute Basophils (0.0 - 0.2 /CUMM) 0 07/10 1400 Hematology CBC w Diff Cancelled WBC Cancelled RBC Cancelled Hgb Cancelled Hct Cancelled MCV Cancelled MCH Cancelled MCHC Cancelled RDW Cancelled Plt Count Cancelled MPV Cancelled Imaging Results: CT scan of the abdomen and pelvis shows some questionable edema around the gallbladder Ultrasound of the abdomen shows some wall thickening and edema around the gallbladder without stones, without pain over the area. Assessment/Plan Assessment/Plan 72-year-old female presented to the emergency room with weakness and shortness of breath and had an incidental finding of questionable acalculous cholecystitis. Clinically patient does not seem to have any acute GI pathology as she has no pain or nausea or vomiting. treatment would be conservative with a cholecystostomy tube Consult Acknowledgment - Thank you for your consult request.
[2018-06-09 13:44] VITALS: BP 176/80
[2018-06-09 19:28] LABS: ABSOLUTE BASOPHIL COUNT 0 /CUMM (0.0-0.2); ABSOLUTE EOSINOPHIL COUNT 0.1 /CUMM (0.0-0.7); ABSOLUTE GRANULOCYTE CT 0.8 /CUMM (1.4-6.5); ABSOLUTE LYMPH COUNT 1.2 /CUMM (1.2-3.4); ABSOLUTE MONOCYTE COUNT 0.1 /CUMM (0.10-0.60); BASOPHIL % 1.2 % (0.0-2.0); EOSINOPHIL % 4.8 % (0-5); HEMATOCRIT 28.1 % (37-47); MEAN CORPUSCULAR HGB 34.7 PG (27.0-31.0); MEAN CORPUSCULAR HGB CONC 33.5 G/DL (33.0-37.0); MEAN CORPUSCULAR VOLUME 103.6 FL (81.0-99.0); MEAN PLATELET VOLUME 9.7 FL (7.4-10.4); RBC DISTRIBUTION WIDTH 26.6 % (11.5-14.5); RED BLOOD CELL CT 2.71 /CUMM (4.20-5.40)
[2018-06-09 19:51] LABS: WHITE BLOOD CELL COUNT 2.1 /CUMM (4.8-10.8)
[2018-06-09 19:52] LABS: PLATELET COUNT 46 /CUMM (130-400)
[2018-06-09 22:55] VITALS: BP 132/62
[2018-06-10 05:59] VITALS: BP 126/60
--- NOTE | 2018-06-10 06:57 | PN- Housestaff ---
Lola Sheridan 06/10/18 0656: Subjective Follow-up For: Pancytopenia, MDS, type II MA. Complaints: no complaints Tele-Events Since Last Visit: Normal sinus rhythm heart rate 70-90 Subjective: No complaints/no acute events overnight Review of Systems Constitutional: Reports: see HPI. Objective Last 24 Hrs of Vital Signs/I&O Vital Signs Date Time Temp Pulse Resp B/P B/P Pulse O2 O2 Flow FiO2 Mean Ox Delivery Rate 06/10 0800 Nasal 2.0L Cannula 06/10 0559 97.6 63 18 126/60 96 Nasal Cannula 06/09 2255 99.3 69 18 132/62 95 Nasal Cannula 06/09 2241 Nasal 2.0L Cannula 06/09 1344 97.8 65 18 176/80 93 Nasal 2.0L Cannula Intake & Output 06/10 1600 06/10 0800 06/10 0000 Intake Total 100 61 Output Total Balance 100 61 Intake, IV 11 Intake, Oral 100 50 Number 1 Bowel Movements Patient 250 lb Weight Physical Exam General Appearance: Alert, Oriented X3, Cooperative, No Acute Distress Skin: No Rashes, No Breakdown, No Significant Lesion Sepsis Skin Exam (color): Normal for Ethnicity HEENT: Atraumatic, PERRLA Neck: Supple Cardiovascular: Regular Rate, Normal S1, Normal S2, No Murmurs Lungs: Clear to Auscultation, Normal Air Movement Abdomen: Normal Bowel Sounds, Soft, No Tenderness Neurological: Normal Gait, Normal Speech, Strength at 5/5 X4 Ext, Normal Tone, Sensation Intact Extremities: No Clubbing, No Cyanosis (b/l l/l edema, improved) Assessment/Plan Assessment: Is a 72-year-old woman with a past medical history of COPD, hypertension, rectal carcinoma, myelodysplastic syndrome, anemia requiring transfusion. She presented with weakness and shortness of breath. Her troponins were elevated mildly and significant hypoxia with underlying anemia. Her vitals were stable last night. Problems: 1. pancytopenia 2. MDS with 5 q. deletion 3. elevated troponin: Type II MA Plan: * Plan is to discharge to home today * Plavix 75 mg once daily * Continue bronchodilator therapy and continue oxygen therapy at 2 L * Mobility as tolerated * Follow as an outpatient: Primary care physician, event marketing coordinator, oncologist, geomatics professor, scaler Problem List: 1. MDS (myelodysplastic syndrome) with 5q deletion 2. Elevated troponin 3. Pancytopenia Pain Ratin Pain Location: Generalized Pain Goal: Pain 4 or less Pain Plan: Dilaudid, oxycodone CR Tomorrow's Labs & Rationales: CBC Ashvin CONNER,Reymundorodriguezvenkata 06/10/18 1314: Attending MD Review Statement Attending Statement Attending MD Statement: examined this patient, discuss w/resident/PA/CASHIER MANAGER, agreed w/resident/PA/CASHIER MANAGER, reviewed EMR data (avail), discussed with nursing, discussed with case mgmt, amended to note Attending Assessment/Plan: Patient seen and examined. Resting comfortably in. Ambulating with little assistance. She feels much better today. Hemoglobin level has improved from a transfusion. She is transfusion dependent and will require another transfusion in the future. At present she is medically stable to be discharged home I will follow-up with the hematology service as an outpatient. Due to her intolerance of aspirin she is being discharged on Plavix. She is now being discharged on a beta-lolita due to bradycardia she developed here. General surgery evaluation appreciated. Due to patient asymptomatic nature a probable acalculus cholecystitis will be managed conservatively.
--- NOTE | 2018-06-10 07:56 | PN- Hematology ---
Subjective Subjective: She is doing well. She denies any new symptoms. She has no fever or chills. She has no nausea or vomiting. She is ambulating around the room. Review of Systems Constitutional: Denies: chills, fever. Cardiovascular: Denies: chest pain. Respiratory: Denies: short of breath. Gastrointestinal: Denies: abdominal pain. Genitourinary: Denies: discharge, hematuria, urgency. Skin: Denies: dryness. Hematologic/Endocrine: Denies: bruising, bleeding. All Other Systems: Reviewed and Negative Objective Vital Signs and I&Os Vital Signs Date Time Temp Pulse Resp B/P B/P Pulse O2 O2 Flow FiO2 Mean Ox Delivery Rate 06/10 0559 97.6 63 18 126/60 96 Nasal Cannula 06/09 2255 99.3 69 18 132/62 95 Nasal Cannula 06/09 2241 Nasal 2.0L Cannula 06/09 1344 97.8 65 18 176/80 93 Nasal 2.0L Cannula 06/09 0800 Nasal 2.0L Cannula Intake & Output 06/10 0800 06/10 0000 06/09 1600 06/09 0800 06/09 0000 06/08 1600 Intake Total 158 12 6477 500 Output Total Balance 159 49 5238 500 Intake, Blood 325 Product Intake, IV 11 25 Intake, Oral 100 50 750 500 Number 1 1 Bowel Movements Patient 113.398 kg 113.965 kg 113.965 kg Weight Weight Bed scale Measurement Method Physical Exam: General Appearance: well developed/nourished, no apparent distress, alert, awake , comfortable, obese Head: normal appearance Respiratory: chest non-tender, no respiratory distress, quiet respiration, On 2L NC Cardiovascular: regular rate/rhythm Gastrointestinal: soft, non-tender, no organomegaly Extremities: no edema Neurologic/Psych: awake, alert, oriented x 3 Cranial Nerves: normal speech Skin: multiple upper extremity ecchymoses Lymphatic: no anterior cervical pricilla Current Medications: Current Medications Sig/Dontae Start time Last Medication Dose Route Stop Time Status Admin Albuterol Sulfate 2 PUF Q4P PRN 06/07 1100 AC INH Albuterol Sulfate 2 PUF Q6P PRN 06/07 0030 AC INH Atorvastatin Calcium 20 MG 1700 06/08 1700 AC 06/09 PO 1659 Budesonide/ 2 PUF BID 06/07 0900 AC 06/09 Formoterol Fumarate INH 2109 Clopidogrel Bisulfate 75 MG DAILY 06/09 1200 AC 06/09 PO 1341 Furosemide 20 MG ONCE ONE 06/09 1200 DC 06/09 IV 06/09 1201 1406 Hydromorphone HCl 1 MG Q4P PRN 06/07 1231 AC 06/10 IV 0304 Melatonin 5 MG AT BEDTIME 06/07 0045 AC 06/07 PO 0245 Oxycodone HCl 20 MG Q8 06/07 1400 AC 06/10 PO 0515 Zolpidem Tartrate 5 MG AT BEDTIME NEED.. 06/07 2145 AC 06/09 PO 2257 Results Last 24 Hours of Lab Results: Laboratory Tests 06/10 06/09 0610 1827 Hematology CBC w Diff Pending NO MAN DIFF REQ WBC (4.8 - 10.8 /CUMM) Pending 2.1 L RBC (4.20 - 5.40 /CUMM) Pending 2.71 L Hgb (12.0 - 16.0 G/DL) Pending 9.4 L Hct (37 - 47 %) Pending 28.1 L MCV (81.0 - 99.0 FL) Pending 103.6 H MCH (27.0 - 31.0 PG) Pending 34.7 H MCHC (33.0 - 37.0 G/DL) Pending 33.5 RDW (11.5 - 14.5 %) Pending 26.6 H Plt Count (130 - 400 /CUMM) Pending 46 L MPV (7.4 - 10.4 FL) Pending 9.7 Gran % (42.2 - 75.2 %) 35.0 L Lymphocytes % (20.5 - 51.1 %) 52.7 H Monocytes % (1.7 - 9.3 %) 6.3 Eosinophils % (0 - 5 %) 4.8 Basophils % (0.0 - 2.0 %) 1.2 Absolute Granulocytes (1.4 - 6.5 /CUMM) 0.8 L Absolute Lymphocytes (1.2 - 3.4 /CUMM) 1.2 Absolute Monocytes (0.10 - 0.60 /CUMM) 0.1 Absolute Eosinophils (0.0 - 0.7 /CUMM) 0.1 Absolute Basophils (0.0 - 0.2 /CUMM) 0 Assessment/Plan Hematology Assessment/Recommendations: Ms. 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 She is feeling relatively well. She received 1 unit of pRBC yesterday. Her hemoglobin is now 9.4. Her counts have slightly improved. She is transfusion dependent for her MDS. Her breathing are stable. Pancytopenia is improving. She will likely need dose reduction of her lenalidomide. She will need to follow up as outpatient. Pancytopenia: -transfuse with platelet if <10,000, <20,000 with fever, or <50,000 with bleeding -transfuse with pRBC if hgb <8 MDS: -continue to hold lenalidomide -follow up as outpatient Please call [phone] with any questions or concerns. Problem List: 1. Pancytopenia 2. MDS (myelodysplastic syndrome) with 5q deletion
[2018-06-10 08:18] LABS: ABSOLUTE BASOPHIL COUNT 0 /CUMM (0.0-0.2); ABSOLUTE EOSINOPHIL COUNT 0.1 /CUMM (0.0-0.7); ABSOLUTE GRANULOCYTE CT 0.6 /CUMM (1.4-6.5); ABSOLUTE LYMPH COUNT 1.5 /CUMM (1.2-3.4); ABSOLUTE MONOCYTE COUNT 0.1 /CUMM (0.10-0.60); BASOPHIL % 0.6 % (0.0-2.0); EOSINOPHIL % 2.8 % (0-5); GRANULOCYTE % 25.8 % (42.2-75.2); HEMATOCRIT 26.6 % (37-47); MEAN CORPUSCULAR HGB 35.2 PG (27.0-31.0); MEAN CORPUSCULAR HGB CONC 33.5 G/DL (33.0-37.0); MEAN CORPUSCULAR VOLUME 105.1 FL (81.0-99.0); MEAN PLATELET VOLUME 10.1 FL (7.4-10.4); PLATELET COUNT 44 /CUMM (130-400); RBC DISTRIBUTION WIDTH 26.2 % (11.5-14.5); RED BLOOD CELL CT 2.54 /CUMM (4.20-5.40); WHITE BLOOD CELL COUNT 2.2 /CUMM (4.8-10.8)
--- NOTE | 2018-06-10 08:47 | PN- Cardiology ---
Subjective Subjective: Patient is off telemetry. Patient claims to feel much better. Objective Vital Signs and I&Os Vital Signs Date Time Temp Pulse Resp B/P B/P Pulse O2 O2 Flow FiO2 Mean Ox Delivery Rate 06/10 0559 97.6 63 18 126/60 96 Nasal Cannula 06/09 2255 99.3 69 18 132/62 95 Nasal Cannula 06/09 2241 Nasal 2.0L Cannula 06/09 1344 97.8 65 18 176/80 93 Nasal 2.0L Cannula Intake & Output 06/10 1600 06/10 0800 06/10 0000 06/09 1600 06/09 0800 06/09 0000 Intake Total 157 69 9516 Output Total Balance 552 38 2207 Intake, Blood 325 Product Intake, IV 11 25 Intake, Oral 100 50 750 Number 1 Bowel Movements Patient 250 lb 251 lb 251 lb Weight Weight Bed scale Measurement Method Physical Exam: Patient comfortable sitting at the edge of the bed having breakfast Head normocephalic atraumatic Eyes sclera anicteric conjunctiva showed mild pallor extraocular muscles were normal Neck no jugular venous distention no thyroid masses no palpable nodes Chest lungs are clear bilaterally Heart regular rhythm with a 1/6 systolic murmur Abdomen soft no organomegaly bowel sounds normal Extremities no clubbing cyanosis or edema Neurological no gross motor or sensory deficits Current Medications: Current Medications Sig/Dontae Start time Last Medication Dose Route Stop Time Status Admin Albuterol Sulfate 2 PUF Q4P PRN 06/07 1100 AC INH Albuterol Sulfate 2 PUF Q6P PRN 06/07 0030 AC INH Atorvastatin Calcium 20 MG 1700 06/08 1700 AC 06/09 PO 1659 Budesonide/ 2 PUF BID 06/07 0900 AC 06/10 Formoterol Fumarate INH 0823 Clopidogrel Bisulfate 75 MG DAILY 06/09 1200 AC 06/10 PO 0823 Furosemide 20 MG ONCE ONE 06/09 1200 DC 06/09 IV 06/09 1201 1406 Hydromorphone HCl 1 MG Q4P PRN 06/07 1231 AC 06/10 IV 0304 Melatonin 5 MG AT BEDTIME 06/07 0045 AC 06/07 PO 0245 Oxycodone HCl 20 MG Q8 06/07 1400 AC 06/10 PO 0515 Zolpidem Tartrate 5 MG AT BEDTIME NEED.. 06/07 2145 AC 06/09 PO 2257 Results Last 48 Hrs of Labs/Mics: Laboratory Tests 06/10/18 0610: CBC w Diff Pending, WBC Pending, RBC Pending, Hgb Pending, Hct Pending, MCV Pending, MCH Pending, MCHC Pending, RDW Pending, Plt Count Pending, MPV Pending 06/09/18 1827: CBC w Diff NO MAN DIFF REQ, RBC 2.71 L, MCV 103.6 H, MCH 34.7 H, MCHC 33.5, RDW 26.6 H, MPV 9.7, Gran % 35.0 L, Lymphocytes % 52.7 H, Monocytes % 6.3, Eosinophils % 4.8, Basophils % 1.2, Absolute Granulocytes 0.8 L, Absolute Lymphocytes 1.2, Absolute Monocytes 0.1, Absolute Eosinophils 0.1, Absolute Basophils 0 06/09/18 0630: Total Bilirubin 0.9, Direct Bilirubin 0.3, AST 27, ALT 69 H, Alkaline Phosphatase 100, Total Protein 6.3, Albumin 3.1 L, CBC w Diff MAN DIFF ORDERED, RBC 2.25 L, MCV 108.1 H, MCH 35.8 H, MCHC 33.1, RDW 27.8 H, MPV 9.8, Gran % 32.7 L, Lymphocytes % 58.9 H, Monocytes % 4.5, Eosinophils % 2.8, Basophils % 1.1, Absolute Granulocytes 0.7 L, Segmented Neutrophils 19 L, Band Neutrophils 9 H, Absolute Lymphocytes 1.2, Lymphocytes 59 H, Monocytes 5, Absolute Monocytes 0.1, Eosinophils 5, Absolute Eosinophils 0.1, Basophils 3 H, Absolute Basophils 0, Nucleated RBCs 1 H, Platelet Estimate DECREASED, Polychromasia 1+, Basophilic Stippling 1+, Anisocytosis 1+, Macrocytic Cells 2+ 06/08/18 1600: CBC w Diff Cancelled, WBC Cancelled, RBC Cancelled, Hgb Cancelled, Hct Cancelled , MCV Cancelled, MCH Cancelled, MCHC Cancelled, RDW Cancelled, Plt Count Cancelled, MPV Cancelled 06/08/18 1400: CBC w Diff Cancelled, WBC Cancelled, RBC Cancelled, Hgb Cancelled, Hct Cancelled , MCV Cancelled, MCH Cancelled, MCHC Cancelled, RDW Cancelled, Plt Count Cancelled, MPV Cancelled Recent Imaging Studies: Echo cardiogram revealedPoor Echo window. Normal left ventricular systolic function. Right ventricle not well visualized. Moderate Pulmonary hypertension by doppler. CTA revealed1. Moderate to severe pulmonary emphysema. No acute intrathoracic findings. No evidence of pulmonary embolism. 2. Gallbladder wall thickening and a small amount of pericholecystic fluid. No radiodense stones are identified, though gallstones may be better seen by ultrasound. Consider correlation with right upper quadrant ultrasound to exclude cholelithiasis and acute cholecystitis. 3. No significant change in the presacral collection and 2 drainage tubes. The collection contains gas and a small amount of fluid. Assessment/Plan Assessment/Plan In summary this 72-year-old female has a following problems 72-year-old woman with a past medical history of COPD, hypertension, rectal CA myelodysplastic syndrome, as well as anemia with requirements of transfusions. She presents to our hospital with symptoms of weakness and dyspnea. She was noted to have a mildly elevated troponin isoenzyme as well as significant hypoxia with underlying anemia on presentation. Troponin isoenzyme elevation: The patient presented with mild troponin isoenzyme elevation in the setting of anemia and significant hypoxia. The overall pattern of her troponin presentation in the context of her presentation with anemia, hypoxia and an elevated blood pressure suggest an underlying supply demand mismatch, consistent with an acute type II on ST segment elevation myocardial infarction. This is not consistent with an acute coronary syndrome. The echocardiogram demonstrated normal wall motion without focal abnormalities; however, was a suboptimal study due to image quality. The patient has been intolerant of beta blockers due to significant bradycardia with low dose. As she has an allergy to aspirin, an agent such as clopidogrel at 75 mg daily should be initiated. Hypertension: Improved on her current medication regimen. We will continue the same further titrated as an outpatient. Anemia/myelodysplastic syndrome: Patient is followed by hematology and we will continue recommendations as per the same. The addition of an clopidogrel at 75 mg daily daily would be beneficial from a cardiac standpoint. She appears comfortable. CTA of the chest confirmed no pulmonary embolism and moderate to severe pulmonary emphysema probably accounting for elevated pulmonary pressures. Normal overall left ventricular systolic function and I agreed that troponin elevation is probably related to type II myocardial infarction. As an outpatient she might benefit from a pharmacological nuclear stress test. Continue telemetry? No
[2018-06-10] MEDS ORDERED: PLAVIX75 M1 PO ×2 (08:53→10:00)
--- NOTE | 2018-06-10 13:23 | Discharge Summary ---
Visit Information Visit Dates Admission Date: 06/06/18 Discharge Date: 06/10/18 Hospital Course Course Attending Physician: Benson Lock MD Primary Care Physician: Analia Walters MD Hospital Course: Naveen Beal is a 72 YO female with PMHx. 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 Noyola, and who adam presents to the ED with a chief complaint of "weakness and shortness of breath." Patient states that she has recently needed a few transfusions for low blood counts and ever since her transfusions she has been experiencing heart flutters. Patient also notes peripheral edema, most notably left-sided leg swelling. Patient also notes dyspnea but denies specifically any chest pain or palpitations. Patient also notes recurring leg pains at night during sleep. Patient states she was diagnosed with Myelodysplastic syndrome in the previous month. Patient had been on Revlimid for MDS therapy. Patient denies any history of smoking tobacco. Patient denies consuming alcoholic beverages. Patient follows up with her PCP Dr. Walters and Oncologist Dr. John Cuevas. Allergies: Coded Allergies: aspirin (Intermediate, GI UPSET 06/06/18) gluten (Mild, GI UPSET 06/06/18) lactase (From DAIRY AID) (Mild, LACTOSE INTOLERANT 06/06/18) Significant Procedures: CT abdomen/pelvis with IV contrast: 1. Moderate to severe pulmonary emphysema. No acute intrathoracic findings. No evidence of pulmonary embolism. 2. Gallbladder wall thickening and a small amount of pericholecystic fluid. No radiodense stones are identified, though gallstones may be better seen by ultrasound. Consider correlation with right upper quadrant ultrasound to exclude cholelithiasis and acute cholecystitis. 3. No significant change in the presacral collection and 2 drainage tubes. The collection contains gas and a small amount of fluid. VTE: negative Chest CT angiogram: 1. Moderate to severe pulmonary emphysema. No acute intrathoracic findings. No evidence of pulmonary embolism. 2. Gallbladder wall thickening and a small amount of pericholecystic fluid. No radiodense stones are identified, though gallstones may be better seen by ultrasound. Consider correlation with right upper quadrant ultrasound to exclude cholelithiasis and acute cholecystitis. 3. No significant change in the presacral collection and 2 drainage tubes. The collection contains gas and a small amount of fluid. VTE: negative Ultrasound abdomen: 1. No evidence of pancreatic pathology. 2. Diffusely echogenic liver raising question of hepatic steatosis. No mass lesions identified to suggest metastatic rectal cancer. 3. Thickened, edematous gallbladder wall without intraluminal stones identified, which is nonspecific. However, the pericholecystic fat appeared somewhat indurated on the recent CT. Early acalculus cholecystitis cannot be excluded. Venous Doppler study bilateral lower limbs: No evidence of deep venous thrombosis involving the bilateral lower extremities. Echocardiogram: Poor Echo window. Normal left ventricular systolic function. Right ventricle not well visualized. Moderate Pulmonary hypertension by doppler. Discharge Instructions Medications at Discharge Discharge Medications: Continue taking these medications: Albuterol Sulfate (Proair Hfa) 90 MCG HFA.AER.AD 2 Puff Inhale through mouth Q6H as needed for RESPIRATORY Comments: NOT GIVEN IN HOSPITAL Oxycodone HCl (Oxycontin) 20 MG TAB.ER.12H 1 Tablet ORAL Q12H Comments: Last Taken: 06/10/18 Time: 0515 Zolpidem Tartrate (Ambien) 5 MG TABLET 1 Tablet ORAL TAKE AT BEDTIME as needed for PAIN Comments: Last Taken: 06/09/18 Time: 2257 Budesonide/Formoterol Fumarate (Symbicort 160-4.5 Mcg Inhaler) 160 MCG-4.5 MCG/ ACTUATION HFA.AER.AD 2 Puff Inhale through mouth TWICE DAILY Comments: Last Taken: 06/10/18 Time: 0823 Hydromorphone HCl (Hydromorphone HCl) 4 MG TABLET 1 Tablet ORAL Q6H as needed for PAIN Qty = 60 Comments: Last Taken: 06/10/18 Time: 0937 Ipratropium/Albuterol Sulfate (Combivent Respimat Inhal [place]) 20 MCG-100 MCG/ ACTUATION MIST.INHAL 1 PUFF Inhale through mouth 4XDAILY Qty = 4 Comments: NOT GIVEN Start taking the following new medications: Clopidogrel Bisulfate (Plavix) 75 MG TABLET 75 Milligram ORAL DAILY Qty = 30 No Refills Instructions: . Comments: Last Taken: 06/10/18 Time: 0823
== END 2018-06-10 12:48 | DRG 808 ==
LOC: ERH 19:28 → ERHI 21:16 → 1NO 21:16 → ENRESERV 21:50 → 1NO 23:59 → ENPENDDIS 06-10 09:41 → ENTRNSPT 06-10 11:02 → EDTRNSPT 06-10 11:14 → EDTRNSPTSTS 06-10 11:14 → EDTRNSPT 06-10 11:22 → EDTRNSPTTYP 06-10 11:22 → EDTRNSPT 06-10 12:17 → CMPTRNSPT 06-10 12:42 → 1NO 06-10 12:48
PROVIDERS: Internal Medicine; Internal Medicine Endocrinology, Diabetes & Metabolism; Pediatrics
PROC: 30233N1 Transfusion of Nonautologous Red Blood Cells into Peripheral Vein, Percutaneous Approach (ICD-10-PCS; principal; 2018-06-07)
DX: D61.1 Drug-induced aplastic anemia (principal); I21.A1 Myocardial infarction type 2; D46.C Myelodysplastic syndrome with isolated del(5q) chromosomal abnormality; D61.818 Other pancytopenia; R09.02 Hypoxemia; I10 Essential (primary) hypertension; J44.9 Chronic obstructive pulmonary disease, unspecified; K21.9 Gastro-esophageal reflux disease without esophagitis; Z85.048 Personal history of other malignant neoplasm of rectum, rectosigmoid junction, and anus; D63.8 Anemia in other chronic diseases classified elsewhere; Z93.2 Ileostomy status; T45.1X5D Adverse effect of antineoplastic and immunosuppressive drugs, subsequent encounter; M79.605 Pain in left leg; M79.604 Pain in right leg; E66.9 Obesity, unspecified; Z68.38 Body mass index [BMI] 38.0-38.9, adult; J45.909 Unspecified asthma, uncomplicated; M54.9 Dorsalgia, unspecified; Z79.51 Long term (current) use of inhaled steroids; Z88.6 Allergy status to analgesic agent
CPT/HCPCS: 1NP; 36415; 36592; 74177; 82436; 86902; 86920; 86922; 87040; 87070; 87086; 93005; 93010; 93306; 93970; 97110-GO; 97116-GO; 97161-GP; 97530-GO; J0713; J1644; J1940; J2405; J3490; P9016

== ENCOUNTER 2018-06-22 17:52 | Inpatient (IN) | payer OTHER ==
[~2018-06-22] VITALS: Ht 172.7 cm; Wt 102.7 kg
[~2018-06-22 17:52] MED LIST changes: +PLAVIX75 M1 PO
[2018-06-22 18:49] LABS: ABSOLUTE BASOPHIL COUNT 0 /CUMM (0.0-0.2); ABSOLUTE EOSINOPHIL COUNT 0 /CUMM (0.0-0.7); ABSOLUTE GRANULOCYTE CT 1.6 /CUMM (1.4-6.5); ABSOLUTE LYMPH COUNT 0.4 /CUMM (1.2-3.4); ABSOLUTE MONOCYTE COUNT 0.1 /CUMM (0.10-0.60); BASOPHIL % 0.1 % (0.0-2.0); EOSINOPHIL % 0 % (0-5); HEMATOCRIT 26.1 % (37-47); MEAN CORPUSCULAR HGB 35.5 PG (27.0-31.0); MEAN CORPUSCULAR HGB CONC 33.8 G/DL (33.0-37.0); MEAN CORPUSCULAR VOLUME 105.1 FL (81.0-99.0); MEAN PLATELET VOLUME 9.2 FL (7.4-10.4); PLATELET COUNT 70 /CUMM (130-400); RBC DISTRIBUTION WIDTH 24.8 % (11.5-14.5); RED BLOOD CELL CT 2.48 /CUMM (4.20-5.40); WHITE BLOOD CELL COUNT 2.1 /CUMM (4.8-10.8)
[2018-06-22 18:50] LABS: GRANULOCYTE % 76.1 % (42.2-75.2)
--- NOTE | 2018-06-22 19:14 | RADIOLOGY REPORT ---
EXAMINATION: XR PORTABLE CHEST CLINICAL INFORMATION: Shortness of breath. COMPARISON: Chest x-ray 11/27/2017 TECHNIQUE: Portable frontal view of the chest was obtained. 6:34 PM FINDINGS: Focal dense consolidation at the left lung base is new since the prior exam 11/27/2017. The right lung is clear. The heart size is enlarged. There are calcifications of aortic arch. There is no pulmonary vascular congestion. IMPRESSION: Dense consolidation left lung base.
--- NOTE | 2018-06-22 19:53 | ED AMS/SEIZURE/WEAK/DIZZY ---
History of Present Illness General Chief Complaint: General Adult Stated Complaint: BIBA NAUSEA AND WEAKNESS Source: patient Exam Limitations: no limitations Vital Signs & Intake/Output Vital Signs & Intake/Output Vital Signs Date Time Temp Pulse Resp B/P B/P Pulse O2 O2 Flow FiO2 Mean Ox Delivery Rate 06/23 1826 94 Nasal 6.0L Cannula 06/23 1803 93 Nasal 6.0L Cannula 06/23 1517 97.5 112 20 154/55 94 Nasal 6.0L Cannula 06/23 1408 97.5 06/23 1120 86 18 162/84 94 Nasal 6.0L Cannula 06/23 1115 97.5 06/23 0844 96 Nasal 6.0L Cannula 06/23 0745 98.6 88 18 158/82 94 Nasal 6.0L Cannula 06/23 0520 97.5 65 22 168/69 98 Nasal 6.0L Cannula 06/22 2222 97.5 67 24 120/57 95 Nasal 6.0L Cannula 06/22 2036 99.8 76 24 143/63 95 Nasal 6.0L Cannula ED Intake and Output 06/23 0000 06/22 1200 Intake Total 1000 Output Total Balance 1000 Intake, IV 1000 Patient 235 lb Weight Weight Reported by Patient Measurement Method Allergies Coded Allergies: aspirin (Intermediate, GI UPSET 06/22/18) gluten (Mild, GI UPSET 06/22/18) lactase (From DAIRY AID) (Mild, LACTOSE INTOLERANT 06/22/18) Reconcile Medications Albuterol Sulfate (Proair Hfa) 90 MCG HFA.AER.AD 2 PUF INH Q6H PRN RESPIRATORY (Reported) Budesonide/Formoterol Fumarate (Symbicort 160-4.5 Mcg Inhaler) 160 MCG-4.5 MCG/ ACTUATION HFA.AER.AD 2 PUF INH BID RESPIRATORY (Reported) Clopidogrel Bisulfate (Plavix) 75 MG TABLET 75 MG PO DAILY HEART . Hydromorphone HCl 4 MG TABLET 1 TAB PO Q4 PRN PAIN (Reported) Ipratropium/Albuterol Sulfate (Combivent Respimat Inhal [place]) 20 MCG-100 MCG/ ACTUATION MIST.INHAL 1 PUFF INH 4XDAILY RESP. (Reported) Oxycodone HCl (Oxycontin) 20 MG TAB.ER.12H 1 TAB PO Q12H PAIN (Reported) Zolpidem Tartrate (Ambien) 5 MG TABLET 1 TAB PO QHS PRN PAIN (Reported) Triage Note: BIBA FROM HOME WITH C/O NAUSEA, DRY HEAVING NOT TAKING SOLID, TAKING GATORADES, ALSO SOB HX COPD, FINISHED CHEMO THIS WEEK (3 WEEKS ON, 1 WEEK OFF) FOR BONE MARROW CANCER. HX COLORECTAL CANCER. PT ARRIVES TO ED AWAKE, ALERT, ORIENTED, O2 SATS 94% ON 3L NC. Triage Nurses Notes Reviewed? yes Onset: Abrupt Duration: day(s):, constant, continues in ED Timing: recent history Injury Environment: home Severity: moderate, severe No Modifying Factors: none HPI: 72-year-old female comes into the emergency room for further evaluation of fever chills weakness cough shortness of breath. She has a history of myelodysplastic syndrome. She was recently admitted to the hospital for elevated troponins. Symptoms become progressively worse and she comes in the hospital for further evaluation. She's had associated cough and bilateral rib pain. (Cyrus Alberto) Past History Travel History Traveled to [place] past 21 day No Medical History Any Pertinent Medical History? 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 No (Cyrus Alberto) Review of Systems Review of Systems Constitutional: Reports: see HPI. EENTM: Reports: no symptoms. Respiratory: Reports: see HPI. Cardiovascular: Reports: see HPI. GI: Reports: see HPI. Genitourinary: Reports: no symptoms. Musculoskeletal: Reports: no symptoms. Skin: Reports: no symptoms. Neurological/Psychological: Reports: no symptoms. Hematologic/Endocrine: Reports: no symptoms. Immunologic/Allergic: Reports: no symptoms. All Other Systems: Reviewed and Negative (Cyrus Alberto) Physical Exam Physical Exam General Appearance: well developed/nourished, alert, awake, mild distress Head: atraumatic Eyes: Bilateral: normal appearance. Ears, Nose, Throat: normal ENT inspection, hearing grossly normal Neck: normal inspection Respiratory: decreased breath sounds Cardiovascular: regular rate/rhythm Back: normal inspection Extremities: normal range of motion Neurologic/Psych: awake, alert Skin: intact, normal color Core Measures ACS in differential dx? Yes CVA/TIA Diagnosis No Sepsis Present: No Sepsis Focused Exam Completed? No (Cyrus Alberto) Progress Differential Diagnosis: anemia, dehydration, electrolyte imbalance, pneumonia, sepsis, PE Plan of Care: Orders Procedure Date/time Status Regular Diet 06/23 B Active EKG 06/23 1715 Active Weight 06/23 1438 Active Teach/Educate 06/23 1438 Active Pain Treatment and Response 06/23 1438 Active Nutritional Intake, Monitor 06/23 1438 Active Isolation 06/23 1438 Active Patient Care Conference 06/23 1438 Active MRSA SCREENING 06/23 1415 Active Change service to 06/23 0826 Active TROPONIN LEVEL 06/23 0600 Complete EKG 06/23 0600 Active MAGNESIUM 06/23 0415 Complete CBC WITHOUT DIFFERENTIAL 06/23 0415 Complete BASIC ELECTROLYTES PLUS BUN&CR 06/23 0415 Complete TROPONIN LEVEL 06/23 0000 Complete LACTIC ACID 06/23 0000 Complete EKG 06/23 0000 Active SWALLOW EVALUATION 06/23 UNK Active Evaluate Swallowing 06/23 UNK Complete PT Evaluate & Treat 06/23 UNK Active Patient Data 06/22 2346 Active STREP PNEUMO URINARY ANTIGEN 06/22 2254 Complete LEGIONELLA URINARY ANTIGEN 06/22 2254 Complete TRC EVALUATION (GEN) 06/22 2232 Active OXYGEN SETUP (GEN) 06/22 2232 Active Pathway - chart 06/22 2232 Active House Staff 06/22 2232 Active Code Status 06/22 2232 Active OXYGEN SETUP (GEN) 06/22 2138 Active Saline Lock 06/22 2138 Active Admit to inpatient 06/22 2138 Active Vital Signs 06/22 2138 Active Activity/Ambulation 06/22 2138 Active Code Status 06/22 2138 Complete MIXED VENOUS BLOOD GAS (GEN) 06/22 1952 Complete Add-on Test (ER Only) 06/22 1952 Active BLOOD CULTURE 06/22 1952 Active URINALYSIS 06/22 1952 Complete Intake & Output 06/22 1833 Active LIPASE 06/22 1830 Complete LACTIC ACID 06/22 1830 Complete VTE Mechanical Prophylaxis 06/22 UNK Active Nursing Misc 06/22 UNK Active Current Medications Sig/Dontae Start time Last Medication Dose Stop Time Status Admin Vancomycin HCl 1,500 MG DAILY 06/23 2100 CAN Sodium Chloride 250 ML (Normal Saline 0.9%) Ceftriaxone Sodium 1,000 MG Q24H 06/23 1420 AC 06/23 (Rocephin) 1500 Azithromycin 500 MG Q24H 06/23 1419 AC 06/23 (Zithromax) 1500 Sodium Chloride 250 ML (Normal Saline 0.9%) Budesonide/ 2 PUF BID 06/23 0900 AC 06/23 Formoterol Fumarate 0830 (Symbicort) Clopidogrel Bisulfate 75 MG DAILY 06/23 0900 AC 06/23 (Plavix) 0830 Ceftazidime 0 .STK-MED ONE 06/23 0803 CAN (Fortaz) Oxycodone HCl 20 MG Q12H 06/22 2300 AC 06/23 (OxyCONTIN) 1115 Zolpidem Tartrate 5 MG QPM PRN 06/22 2300 AC 06/23 (Ambien) 0050 Acetaminophen 1,000 MG Q6P PRN 06/22 2230 AC 06/23 (Ofirmev) 1115 Hydromorphone HCl 1 MG Q4 HRS NEEDED PRN 06/22 223 AC 06/23 (Dilaudid) 1818 Ondansetron HCl 4 MG Q6P PRN 06/22 2230 AC 06/23 (Zofran) 1729 Sodium Chloride 1,000 ML Q13H 06/22 2230 AC 06/23 (Normal Saline 0.9%) 1253 Laboratory Tests 06/23/18 0600: CBC w Diff Cancelled, WBC Cancelled, RBC Cancelled, Hgb Cancelled, Hct Cancelled , MCV Cancelled, MCH Cancelled, MCHC Cancelled, RDW Cancelled, Plt Count Cancelled, MPV Cancelled 06/23/18 0510: Troponin I 0.12 *H 06/23/18 0510: Anion Gap 9, Estimated GFR > 60, BUN/Creatinine Ratio 20.0, Magnesium 2.2, CBC w Diff MAN DIFF ORDERED, RBC 2.46 L, MCV 105.8 H, MCH 36.0 H, MCHC 34.0, RDW 24.4 H, MPV 8.6, Gran % 74.5, Lymphocytes % 18.1 L, Monocytes % 7.4, Eosinophils % 0, Basophils % 0, Absolute Granulocytes 1.3 L, Segmented Neutrophils 52, Band Neutrophils 31 H, Absolute Lymphocytes 0.3 L, Lymphocytes 14 L, Monocytes 1 L, Absolute Monocytes 0.1, Absolute Eosinophils 0, Basophils 1, Absolute Basophils 0, Metamyelocytes 1, Platelet Estimate DECREASED, Anisocytosis 1+, Macrocytic Cells 2+ 06/23/18 0230: Urinalysis MOD H, Urine Color YEL, Urine Clarity HAZY H, Urine pH 6.5, Ur Specific [place] <= 1.005, Urine Protein NEG, Urine Ketones NEG, Urine Nitrite NEG, Urine Bilirubin NEG, Urine Urobilinogen 0.2, Ur Leukocyte Esterase LARGE H , Ur Microscopic SEDIMENT EXAMINED, Urine RBC 5-10 H, Urine WBC 15-25 H, Ur Epithelial Cells MOD H, Urine Bacteria MOD H, Micro UA Comment , Urine Hemoglobin SMALL H, Urine Glucose NEG 06/23/18 0030: Lactic Acid 1.1, Troponin I 0.19 *H 06/22/18 2000: Bicarbonate Actual 26, Mixed VBG pH 7.34, Mixed VBG pCO2 50, Mixed VBG O2 Saturation 29 L, Carboxyhemoglobin 1.4 L, O2 Concentration % 3LPM, O2 Delivery Method NC, Phlebotomy Draw Site VENOUS Microbiology 06/23 1415 UPPER RESP: Surveillance Culture - COLB 06/23 230 URINE ROUT: Legionella Antigen - COMP 06/23 230 URINE ROUT: Streptococcus pneumoniae Antigen (M - COMP 06/22 2259 LOWER RESP: Respiratory Culture - CAN Cancelled: SPECIMEN NOT RECEIVED IN LABORATORY 06/22 2259 LOWER RESP: Gram Stain - CAN Cancelled: SPECIMEN NOT RECEIVED IN LABORATORY 06/22 2045 BLOOD: Blood Culture - RES 06/22 2030 BLOOD: Blood Culture - RES Diagnostic Imaging: Viewed by Me: Radiology Read. Discussed w/RAD: Radiology Read. Radiology Impression: PATIENT: CARINE PAYTON PRESENT AGE: 72 PATIENT ACCOUNT NO: [id number] : 44 LOCATION: [facility] ORDERING PHYSICIAN: Jose Angel Butterfield DO (TBS) SERVICE DATE: 06/22/18 EXAM TYPE: RAD - XRY-PORTABLE CHEST XRAY EXAMINATION: XR PORTABLE CHEST CLINICAL INFORMATION: Shortness of breath. COMPARISON: Chest x-ray 11/27/2017 TECHNIQUE: Portable frontal view of the chest was obtained. 6:34 PM FINDINGS: Focal dense consolidation at the left lung base is new since the prior exam 11/27/2017. The right lung is clear. The heart size is enlarged. There are calcifications of aortic arch. There is no pulmonary vascular congestion. IMPRESSION: Dense consolidation left lung base. DICTATED BY: Omari Nelson MD DATE/TIME DICTATED:1909 SANDER HAND:JESENIA DATE/TIME TRANSCRIBED:06/22/181909 CONFIDENTIAL, DO NOT COPY WITHOUT APPROPRIATE AUTHORIZATION. <Electronically signed in Other Vendor System> SIGNED BY: Omari Nelson MD 06/22/181913 Initial ED EKG: normal sinus rhythm, rate (98) (Cyrus Alberto) Departure Departure Disposition: STILL A PATIENT Condition: Stable Clinical Impression Primary Impression: Pneumonia Secondary Impressions: Elevated troponin, Hypoxia Referrals: Selena CONNER,Analia Hooker (PCP/Family) Departure Forms: Customer Survey General Discharge Information Comments 06/22/2018 11:04:21 PM Patient had a recent CT angiogram of chest that was normal. Do not feel that repeat CT angiogram to rule out pulmonary embolism is necessary. Admission Note Spoke With: Everardo Minor MD Documentation of Exam: Documentation of any treatments & extenuating circumstances including Concerns Regarding Discharge (functional status, medication knowledge or non-compliance, living conditions, etc.) that warrant an admission rather than observation: Patient will require IV antibiotics. Supplemental oxygen. IV fluids. Cardiac telemetry. Cardiac consultation. Repeat troponins. Repeat labs. Medically not safe for discharge. Patient will require greater than 72 hours of care. (Cyrus Alberto) PA/BLOW PIT HELPER Co-Sign Statement Statement: ED Attending supervision documentation- x I saw and evaluated the patient. I have also reviewed all the pertinent lab results and diagnostic results. I agree with the findings and the plan of care as documented in the PA's/BLOW PIT HELPER's documentation. N/V, sob, on chemo unable to eat or drink with pneumonia [] I have reviewed the ED Record and agree with the PA's/BLOW PIT HELPER's documentation. [] Additions or exceptions (if any) to the PAs/BLOW PIT HELPER's note and plan are summarized below: [] (Teo CONNER,Ronnie) Critical Care Note Critical Care Note Critical Care Time: 30-74 min (35) (Angelo ALVARADO,Cyrus)
--- NOTE | 2018-06-22 21:18 | History & Physical ---
Damian Harkins 06/22/182116: General Information and HPI MD Statement: I have seen and personally examined CARINE PAYTON and documented this H&P. The patient is a 72 year old F who presented with a patient stated chief complaint of [weakness, nausea and sweating]. Source of Information: patient, family Exam Limitations: no limitations History of Present Illness: The patient is a 72-year-old lady with past medical history which is significant for hypertension, COPD (on home O2 as needed), myelodysplastic syndrome, asthma, colorectal cancer (currently on chemotherapy) who was brought to the ED with chief complaint of generalized weakness, nausea, decreased appetite, and sweating. Ms. Payton is accompanied by her family during the interview. She reports that she relatively feels fine Thursday night but on Thursday morning when she woke up she had no appetite to eat or drink or eat, at the same time she experienced generalized weakness, sweating, nausea, and body aches. Since her situation was aggravating she decided to come to ED for more evaluation. She has a history of colorectal cancer and myelodysplastic syndrome and hemato- oncologist is Dr. Sheridan, and her last dose of chemotherapy was on June 07. She reports Dr. Sheridan has mentioned that her symptoms could be due to the chemotherapy that she is taking. She reports that she had 40 rounds of radiation therapy which has caused a presacral abscess and drain is placed and is in her sacral area and she currently has drains. She has an old bilateral anterior lower costal margin pain which is also tender. 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 Colovaginal fistula. Seasonal allergies Social history: She currently lives with her family, does not currently smoke, and drinks occasionally Allergies/Medications Allergies: Coded Allergies: aspirin (Intermediate, GI UPSET 06/22/18) gluten (Mild, GI UPSET 06/22/18) lactase (From DAIRY AID) (Mild, LACTOSE INTOLERANT 06/22/18) Home Med list Albuterol Sulfate (Proair Hfa) 90 MCG HFA.AER.AD 2 PUF INH Q6H PRN RESPIRATORY (Reported) Budesonide/Formoterol Fumarate (Symbicort 160-4.5 Mcg Inhaler) 160 MCG-4.5 MCG/ ACTUATION HFA.AER.AD 2 PUF INH BID RESPIRATORY (Reported) Clopidogrel Bisulfate (Plavix) 75 MG TABLET 75 MG PO DAILY HEART . Hydromorphone HCl 4 MG TABLET 1 TAB PO Q4 PRN PAIN (Reported) Ipratropium/Albuterol Sulfate (Combivent Respimat Inhal [place]) 20 MCG-100 MCG/ ACTUATION MIST.INHAL 1 PUFF INH 4XDAILY RESP. 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 spouse Services at Home: None ETOH Use: denies use Illicit Drug Use: denies illicit drug use Functional Ability ADLs Independent: dressing, eating, toileting, bathing. Ambulation: independent IADLs Independent: shopping, housework, finances, food prep, telephone, transportation , medication admin. Review of Systems Review of Systems Constitutional: Reports: see HPI. EENTM: Reports: see HPI. Cardiovascular: Reports: see HPI. Respiratory: Reports: see HPI. GI: Reports: see HPI. Genitourinary: Reports: see HPI. Musculoskeletal: Reports: see HPI. Skin: Reports: see HPI. Neurological/Psychological: Reports: see HPI. Hematologic/Endocrine: Reports: see HPI. Immunologic/Allergic: Reports: see HPI. Exam & Diagnostic Data Last 24 Hrs of Vital Signs/I&O Vital Signs Date Time Temp Pulse Resp B/P B/P Pulse O2 O2 Flow FiO2 Mean Ox Delivery Rate 06/23 0520 97.5 65 22 168/69 98 Nasal 6.0L Cannula 06/22 2222 97.5 67 24 120/57 95 Nasal 6.0L Cannula 06/22 2036 99.8 76 24 143/63 95 Nasal 6.0L Cannula 06/22 1759 95 Nasal 3.0L Cannula 06/22 1755 98.8 74 24 150/74 94 Nasal 3.0L Cannula Intake & Output 06/23 1600 06/23 0800 06/23 0000 Intake Total 1000 1000 Output Total 550 Balance 450 1000 Intake, IV 1000 1000 Output, Stool 150 Output, Urine 400 Patient 235 lb Weight Weight Reported by Patient Measurement Method Physical Exam General Appearance Alert, Oriented X3, Cooperative, No Acute Distress, ill appearing Skin No Rashes Skin Temp/Moisture Exam: Warm/Dry Sepsis Skin Exam (color): Normal for Ethnicity HEENT Atraumatic, PERRLA, EOMI, nasal cannula Neck Supple, No JVD, No LAD Cardiovascular Regular Rate, Normal S1, Normal S2, No Murmurs Lungs inspiratory generalized rhonchi, left lower lobe crackles and decreased airflow Abdomen Normal Bowel Sounds, Soft, No Tenderness, ileostomy was done for her Neurological Normal Speech, Strength at 5/5 X4 Ext, Normal Tone, Sensation Intact, Cranial Nerves 3-12 NL Extremities No Clubbing, No Cyanosis, Bilateral lower exteremity edema and tender Vascular Normal Pulses, Pulses Symmetrical Sepsis Peripheral Pulse Location: Dorsalis Pedis Sepsis Peripheral Pulse Exam: Normal Sepsis Cap Refill Exam: <2 Sec Assessment/Plan Assessment: Ms. Payton is a 76-year-old lady with past medical history significant for colorectal cancer with bone metastases, myelodysplastic syndrome, recently on chemotherapy, who is here for evaluation of recent onset generalized weakness, decreased appetite, nausea, and chills. In physical examination she was ill-appearing and had shortness of breath. She had a high blood pressure with SBP: 150. His lung examination showed bilateral rhonchi and fine crackles in her left lower lobe with decreased breathing sounds on the same side. CVC showed pancytopenia with a WBC: 2.5, Hb: 8.8, HCT 26.1, MCV: 105.1, absolute granulocyte count of 1.6, which was reduced to 1.3 on next CBC. Her electrolytes were within normal range feet potassium 4.5, sodium 141, BUN 14, CR 0.7, lactic acid 1.1, calcium 8.4, magnesium 2.2. Her troponins were increased to 0.22 which was decreased to 0.19 and then 0.12. She has normal liver enzymes and albumin of 3.3. Her chest imaging showed a consolidation in left lower lobe which is consistent with pneumonia, since she is immunosuppressed she received broad-spectrum antibiotics. She has leukopenia/bandemia, tachypnea with evidence of pneumonia on chest imaging; based on this information the patient meets sepsis criteria. She is admitted to telemetry floor for close monitoring and antibiotic therapy and serial troponin EKG checking and cardiology consult. 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 Pneumonia 2. MDS (myelodysplastic syndrome) with 5q deletion 3. Pancytopenia 4. Elevated troponin 5. Perirectal abscess Core Measures/Misc (08/16) Acute Coronary Syndrome ACS Diagnosis: No Congestive Heart Failure Congestive Heart Failure Diagnosis No Cerebrovascular Accident CVA/TIA Diagnosis: No VTE (View Protocol) VTE Risk Factors Acute Medical Illness No Mechanical VTE Prophylaxis d/t N/A MechProphylax Ordered No VTE Pharm Prophylaxis d/t NA PharmProphylax ordered Sepsis (View protocol) Sepsis Present: Yes If YES complete Sepsis Event Note If YES complete Sepsis Event Note Dawson Valentine MD 06/22/180: Core Measures/Misc (08/16) Sepsis (View protocol) If YES complete Sepsis Event Note If YES complete Sepsis Event Note Resident Review Statement Resident Statement: examined this patient, discussed with sports management internship, agreed with sports management internship, reviewed EMR data (avail) Other Findings: History of present illness 72-year-old woman with past medical history of colorectal cancer status post 3 weeks chemotherapy completed on 06/07, COPD on oxygen as needed, asthma, hypertension, history of pneumonia, osteoarthritis, and myelodysplastic syndrome with pancytopenia brought in by ambulance for evaluation of weakness, decreased oral intake, body aches, and chills. Patient reports that she felt well on Thursday but upon awaking on Thursday she felt ill with no desire to eat or drink with associated nausea, weakness, chills , and body aches. Her symptoms progressively worsened prompting her to call EMS today for which she is brought to the [facility] ED for evaluation. She does admit to persistence of her symptoms with new worsening shortness of breath. Review of systems Otherwise she denies any headache, subjective fever, vision change, lightheadedness, dizziness, chest pain, palpitations, heartburn, cough, vomiting , diarrhea, abdominal pain, constipation, urinary complaints, numbness, tingling , or weakness. Objective Vitals: Temp 98.8-99.8, HR 74-76, RR 24, BP 143-150/63-74, SPO2 94-95% on 6.0 L O2 via NC Physical exam -General: Elderly ill-appearing woman in no acute distress -HEENT: NCAT, [place]armaine, EOMI, anicteric sclera, moist mucous membranes, nasal cannula in place -Neck: Supple, no JVD, trachea midline, no accessory respiratory muscle use -Cardio: Normal S1/S2 without murmurs/gallops/rubs -Pulmonary: Scattered rhonchi with diminished left lower lobe airflow and associated crackles -Abdomen: Soft, nontender, nondistended, bowel sounds intact -Neuro: Awake and alert, cranial nerves II through XII grossly intact -Extremities: 1-2 nonpitting bilateral lower extremity edema, normal pulses, capillary refill <2 seconds Labs/imaging/studies -CBC: WBC/bands 2.1/18, hemoglobin 8.8, hematocrit 26.2, platelets 70, MCV 105 -BMP: Sodium 135, potassium 4.5, chloride 99, CO2 29, BUN 15, creatinine 0.7, anion gap 7, glucose 112 -LFT: Within normal limits -Miscellaneous: Lactic acid 0.9, lipase normal, troponin I 0.22 -VBG: PH 7.34, PCO2 50, PO2 42, bicarb 26 -EKG: Normal sinus rhythm with incomplete right bundle branch block and T-wave inversions V1-V4, II, III, and S1Q3T3 -Echocardiogram 06/07/18: LVEF 60-65% without regional wall motion abnormalities, trace-mild MR, mild-moderate TR, RV 40-50 mmHg, moderate pulmonary hypertension -CXR: Dense consolidation left lung base. Assessment 72-year-old woman with multiple medical problems significant for colorectal cancer status post chemotherapy with bony metastases and chronic pain and myelodysplastic syndrome seen for evaluation of nausea, weakness, decreased oral intake, chills. Presently patient is complaining of the symptoms as described above and additionally shortness of breath. Vital signs are significant for mildly elevated systolic blood pressure ranging 143-150 and SPO2 ranging 94-95% on 3-6 L O2 via nasal cannula appear physical examination demonstrates an ill-appearing elderly woman in no acute distress with a normal cardiac exam and scattered rhonchi with diminished left lower lobe airflow and associated crackles. Significant labs include WBC/bands 2.1/18, H/H8 0.8/26.1, platelet 70, lactic acid 0.9, and troponin I 0.22. EKG demonstrates an incomplete right bundle branch block with nonspecific ST T-wave changes. Chest x-ray demonstrates a dense left lower lobe consolidation. Patient received vancomycin/ceftriaxone and intravenous fluids after blood cultures were obtained in the ED; additionally she received Zofran, Phenergan, Dilaudid, and Tylenol for her chronic pain. Clinically patient appears to have a left lower lobe pneumonia concerning for healthcare associated pneumonia given her known immunocompromised state for which she received broad-spectrum antibiotics. Patient meets sepsis criteria with leukopenia/bandemia and tachypnea with evidence of pneumonia. Patient is being admitted to the telemetry floor for telemetry monitoring, intravenous antibiotics/fluids, serial troponin/EKG, second lactic acid, and cardiology evaluation. Problem list -Left lower lobe consolidation, probable healthcare associated pneumonia -sepsis -History of colorectal cancer status post 3 weeks chemotherapy, completed on 06/07 -History of metastatic bone lesions with chronic pain, on opiate therapy -COPD, on supplemental O2 as needed -Asthma -Hypertension -History of pneumonia -GERD -Osteoarthritis -Myelodysplastic syndrome -Obesity Plan -Admit to telemetry floor -Telemetry monitoring -total respiratory care -Supplemental oxygen, goal >92%, taper as tolerated -NS bolus 30 cc/kg -Normal saline at 75 mL/h -Vancomycin /Ceftazidime -Zofran as needed for nausea -Solu-Medrol 60 mg IV once -Continue home meds: Plavix, Symbicort, OxyContin -Hold following meds for nausea, restart as tolerated/needed -Courtesy consult with oncology -consult with cardiology for elevated troponin -Follow-up cultures and sensitivities -Obtain sputum culture -Check Legionella and strep antigen -check 1 more lactic acid, trend until normal if elevated -Trend troponin/EKG until peak or 3 negative sets -Pain control with Dilaudid -regular diet -DVT prophylaxis with Alps, no pharmacologic prophylaxis due to thrombocytopenia -DNR/DNI Everardo Minor MD 06/23/18 0142: Core Measures/Misc (08/16) Sepsis (View protocol) If YES complete Sepsis Event Note If YES complete Sepsis Event Note Attending MD Review Statement Attending Statement Attending MD Statement: examined this patient, discuss w/resident/PA/POT RELINER, agreed w/resident/PA/POT RELINER, reviewed EMR data (avail) Attending Assessment/Plan: 72F PMH myelodysplastic syndrome on Revlimid, HTN, COPD, GERD, rectal cancer s/p neoadjuvant chemoradiation therapy followed by LAR with diverting loop ileostomy and ileostomy reversal (2006), subsequently developed rectovaginal fistula with anastomotic breakdown and perirectal abscess (2015) requiring multiple perineal washouts and diverting loop ileostomy, recently discharged from [facility] 2 weeks ago after being treated for SOB, hypoxia, and weakness due to anemia, transfused pRBC, complicated by Type 2 PR, presenting today with 2 days of fever, chills, productive cough with yellow sputum, and shortness of breath. Patient appears septic, weak, dehydrated. She is breathing comfortably and not short of breath at rest and denies chest pain. She had lost her appetite but it is returning after being hydrated with 3L NS. CXR shows LLL infiltrate, Tmax 99.8, normal BP /HR, WBC 2.4 with 18% bands, normal renal function, troponin 0.22, EKG NSR. Requiring 5L NC to maintain oxygenation, normally on 1L PRN at home. Her lung exam reveals bilateral mild wheezing and left sided rhonchi. Hgb 8.8, was 8.9 on discharge, but may be hemoconcentrated. 1. Sepsis secondary to LLL pneumonia 2. COPD Exacerbation 3. Acute hypoxemic respiratory failure 4. Type 2 myocardial infarction 5. Myelodysplastic syndrome Plan - Admit to telemetry - Vancomycin and Ceftazidime given immunocompromised state and recent hospital admission - Sputum and blood cultures - IV hydration - Trend cardiac enzymes and EKG - Transfuse to Hgb > 8.0, would check another CBC now - Nebulizer treatments - Would hold on further steroids and reasses in the morning - Hematology, ID, cardiology consults - Titrate down oxygen as tolerated - Continue home medications - DVT PPx
--- NOTE | 2018-06-23 01:44 | Admission Certification ---
Admission Certification Certification Statement - As attending physician, I certify that at the time of - admission, based on clinical presentation, severity of - symptoms, need for further diagnostic testing and - therapeutic interventions, and risk of adverse outcomes - without in-hospital treatment, in my clinical assessment, - this patient requires an acute hospital stay for a minimum - of two nights or longer. I have also considered psychsocial - factors such as support system, advanced age, financial - issues, cognitive issues, and failed out-patient treatments, - past re-admission history, safety of patient, and lack of - compliance as applicable. Specific rationale supporting this admission is: Sepsis secondary to pneumonia and positive troponin
[2018-06-23 05:27] LABS: ABSOLUTE BASOPHIL COUNT 0 /CUMM (0.0-0.2); ABSOLUTE EOSINOPHIL COUNT 0 /CUMM (0.0-0.7); ABSOLUTE GRANULOCYTE CT 1.3 /CUMM (1.4-6.5); ABSOLUTE LYMPH COUNT 0.3 /CUMM (1.2-3.4); ABSOLUTE MONOCYTE COUNT 0.1 /CUMM (0.10-0.60); BASOPHIL % 0 % (0.0-2.0); EOSINOPHIL % 0 % (0-5); GRANULOCYTE % 74.5 % (42.2-75.2); MEAN CORPUSCULAR VOLUME 105.8 FL (81.0-99.0); MEAN PLATELET VOLUME 8.6 FL (7.4-10.4); PLATELET COUNT 61 /CUMM (130-400); RBC DISTRIBUTION WIDTH 24.4 % (11.5-14.5); RED BLOOD CELL CT 2.46 /CUMM (4.20-5.40); WHITE BLOOD CELL COUNT 1.7 /CUMM (4.8-10.8)
--- NOTE | 2018-06-23 07:27 | PN- Housestaff ---
Subjective Follow-up For: HAP Complaints: Pt complains of fatigue, chills, gen body aches Subjective: Pt reports decreased appetite, fatigue and chills this morning Review of Systems Constitutional: Reports: see HPI. Objective Last 24 Hrs of Vital Signs/I&O Vital Signs Date Time Temp Pulse Resp B/P B/P Pulse O2 O2 Flow FiO2 Mean Ox Delivery Rate 06/23 2007 Nasal 6.0L Cannula 06/23 1826 94 Nasal 6.0L Cannula 06/23 1803 93 Nasal 6.0L Cannula 06/23 1517 97.5 112 20 154/55 94 Nasal 6.0L Cannula 06/23 1408 97.5 06/23 1120 86 18 162/84 94 Nasal 6.0L Cannula 06/23 1115 97.5 06/23 0844 96 Nasal 6.0L Cannula 06/23 0745 98.6 88 18 158/82 94 Nasal 6.0L Cannula 06/23 0520 97.5 65 22 168/69 98 Nasal 6.0L Cannula Intake & Output 06/24 0800 06/24 0000 06/23 1600 Intake Total Output Total Balance Patient 243 lb 235 lb Weight Physical Exam General Appearance: Alert, Oriented X3, Cooperative, Mild Distress Skin: No Rashes, No Breakdown, No Significant Lesion Skin Temp/Moisture Exam: Cool/Dry Sepsis Skin Exam (color): Normal for Ethnicity HEENT: Atraumatic, PERRLA, EOMI, Mucous Membr. moist/pink Neck: Supple Cardiovascular: Regular Rate, Normal S1, Normal S2, No Murmurs Lungs: Clear to Auscultation, dec breath sounds and crackles lt side Abdomen: Normal Bowel Sounds, Soft, No Tenderness, No Hepatospenomegaly Neurological: Normal Speech, Strength at 5/5 X4 Ext, Normal Tone Extremities: No Clubbing, No Cyanosis, No Edema (b/l pitting edema ) Assessment/Plan Assessment: 72-year-old lady with past medical history which is significant for hypertension , COPD (on home O2 as needed), myelodysplastic syndrome, asthma, colorectal cancer (currently on chemotherapy) who was brought to the ED with chief complaint of generalized weakness, nausea, decreased appetite, and sweating. She felt fine Thursday night but on Thursday morning when she woke up she had no appetite, generalized weakness, sweating, nausea, body aches, chills and sweating. Vitals: Stable. afebrile. On 6L oxygen. CXR: Left sided consolidation Trops: 0.22--->0.19--->0.12 Problems: 1. Sepsis secondary to LLL pneumonia 2. COPD Exacerbation 3. Acute hypoxemic respiratory failure 4. Type 2 myocardial infarction 5. Myelodysplastic syndrome Plan; - Admitted to telemetry for continuous cardiac monitoring - Afebrile but meets sepsis criteria leukopenia, bandemia - Most probably hospital acquired PNA, as the pt was recently d/c on June 10 from the tele floor - Swallow eval will be requested to look for any possible aspiration leading to the PNA - Vancomycin and Ceftazidime started in the ED given immunocompromised state and recent hospital admission - Sputum and blood cultures will be followed - Monitor BP - Jeanine plavix if cleared from Hem/onc - Outpt testing for Cardiac ischemia can be cpnsidered - Transfuse if Hgb < 8.0 - transfuse with platelet if <10,000, <20,000 with fever, or <50,000 with bleeding - Hold lenalidomide, otherwise continue home medications - DVT PPx: ALPS - Code: DNR/ DNI Problem List: 1. Pancytopenia 2. Pneumonia 3. Lower extremity pain, bilateral 4. MDS (myelodysplastic syndrome) with 5q deletion 5. Elevated troponin Pain Ratin Pain Location: generalized Pain Goal: Remain pain free Pain Plan: follow pain pathway Tomorrow's Labs & Rationales: cbc, bep
--- NOTE | 2018-06-23 07:43 | Cons- Hematology ---
General Information and HPI Consulting Request Date of Consult: 06/23/18 Requested By: Everardo Minor MD Reason for Consult: MDS, pneumonia Source of Information: patient, old records Exam Limitations: no limitations History of Present Illness: Ms. 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 She was recently hospitalized from 06/06 to 06/11 for anemia shortness of breath. She felt well as a discharge from the hospital. She is back to her normal state of health until Thursday afternoon when she started feeling unwell. She is feeling tired and weak. She started having some chills with sweating. She went down to rest and didn't feel any better Thursday. Symptoms progressively worsened with more fatigue and weakness. She denies any obvious fever. She denies coughing. She has choking sensation when she eats from time to time. She went out shopping on Thursday. She denies any other sick contacts. She denies dysuria. She denies any nausea or vomiting. Her bowel movement is about the same. On presentation, she was afebrile. She was normotensive. Oxygen saturation was mid 90s on 6 L. Her blood work demonstrated WBC of 2100 with 18% bands. Hemoglobin was 8.8 with hematocrit of 26.1. Platelet count was 70,000. Chest x -ray demonstrated dense consolidation of the left lower lobe. She was started on antibiotics with vancomycin and ceftazidime. She feels a bit better this morning. She denies any fever. She does feel fatigued. Allergies/Medications Allergies: Coded Allergies: aspirin (Intermediate, GI UPSET 06/22/18) gluten (Mild, GI UPSET 06/22/18) lactase (From DAIRY AID) (Mild, LACTOSE INTOLERANT 06/22/18) Home Med List: Albuterol Sulfate (Proair Hfa) 90 MCG HFA.AER.AD 2 PUF INH Q6H PRN RESPIRATORY (Reported) Budesonide/Formoterol Fumarate (Symbicort 160-4.5 Mcg Inhaler) 160 MCG-4.5 MCG/ ACTUATION HFA.AER.AD 2 PUF INH BID RESPIRATORY (Reported) Clopidogrel Bisulfate (Plavix) 75 MG TABLET 75 MG PO DAILY HEART . Hydromorphone HCl 4 MG TABLET 1 TAB PO Q4 PRN PAIN (Reported) Ipratropium/Albuterol Sulfate (Combivent Respimat Inhal [place]) 20 MCG-100 MCG/ ACTUATION MIST.INHAL 1 PUFF INH 4XDAILY RESP. (Reported) Oxycodone HCl (Oxycontin) 20 MG TAB.ER.12H 1 TAB PO Q12H PAIN (Reported) Zolpidem Tartrate (Ambien) 5 MG TABLET 1 TAB PO QHS PRN PAIN (Reported) Current Medications: Current Medications Sig/Dontae Start time Last Medication Dose Route Stop Time Status Admin Acetaminophen 1,000 MG Q6P PRN 06/22 2230 AC IV Acetaminophen 975 MG ONCE ONE 06/22 2015 DC 06/22 PO 06/22 Acetaminophen 0 .STK-MED ONE 06/22 2011 DC PO Budesonide/ 2 PUF BID 06/23 09 AC Formoterol Fumarate INH Ceftazidime 1,000 MG Q12 06/23 09 AC IV Ceftazidime 0 .STK-MED ONE 06/22 2104 DC .ROUTE Ceftazidime 1,000 MG ONCE ONE 06/22 2000 DC 06/22 IV 06/22 Clopidogrel Bisulfate 75 MG DAILY 06/23 0900 AC PO Hydromorphone HCl 1 MG Q4 HRS NEEDED PRN 06/22 2230 AC IV Hydromorphone HCl 0 .STK-MED ONE 06/22 2012 DC PO Hydromorphone HCl 2 MG ONCE ONE 06/22 2000 DC 06/22 PO 06/22 Ketorolac 0 .STK-MED ONE 06/22 2229 DC Tromethamine .ROUTE Ketorolac 30 MG ONCE ONE 06/22 2215 DC 06/22 Tromethamine IV 06/22 Methylprednisolone 0 .STK-MED ONE 06/22 2229 DC .ROUTE Methylprednisolone 60 MG ONCE ONE 06/22 2215 DC 06/22 IV 06/22 Morphine Sulfate 0 .STK-MED ONE 07/24 2229 DC .ROUTE Morphine Sulfate 2 MG ONCE ONE 06/22 2215 DC 06/22 IV 06/22 2216 2240 Ondansetron HCl 4 MG Q6P PRN 06/22 2230 AC IV Ondansetron HCl 4 MG ONCE ONE 06/22 1845 DC 06/22 IV 06/22 1846 1832 Ondansetron HCl 0 .STK-MED ONE 06/22 1829 DC .ROUTE Oxycodone HCl 0 .STK-MED ONE 06/23 0048 DC PO Oxycodone HCl 20 MG Q12H 06/22 2300 AC 06/23 PO 0050 Promethazine HCl 0 .STK-MED ONE 06/22 2020 DC .ROUTE Promethazine HCl 12.5 MG ONCE ONE 06/22 2015 DC 06/22 IV 06/22 Sodium Chloride 1,000 ML BOLUS ONE 06/22 2230 DC 06/22 IV 06/22 2329 2300 Sodium Chloride 1,000 ML BOLUS ONE 06/22 2230 DC 06/23 IV 06/22 2329 0050 Sodium Chloride 1,000 ML Q13H 06/22 2230 AC 06/23 IV 0245 Sodium Chloride 1,000 ML BOLUS ONE 06/22 1845 DC 06/22 IV 06/22 1944 1832 Vancomycin HCl 1,500 MG DAILY 06/23 0900 AC Sodium Chloride 250 ML IV Vancomycin HCl 0 .STK-MED ONE 06/22 2105 DC .ROUTE Vancomycin HCl 1,000 MG ONCE ONE 06/22 2000 DC 06/22 Sodium Chloride 250 ML IV 06/22 2059 2117 Zolpidem Tartrate 0 .STK-MED ONE 06/23 0048 DC PO Zolpidem Tartrate 5 MG QPM PRN 06/22 2300 AC 06/23 PO 0050 Review of Systems Review of Systems Constitutional: Reports: chills, diaphoresis, weakness. Denies: fever. Cardiovascular: Denies: chest pain. Respiratory: Reports: short of breath. Denies: cough, hemoptysis. GI: Denies: abdominal pain, constipation, diarrhea. Neurological/Psychological: Reports: anxiety. Hematologic/Endocrine: Denies: bruising, bleeding. All Other Systems: Reviewed and Negative Past History Travel History Traveled to [place] past 21 day No Medical History Neurological: NONE EENT: allergies Cardiovascular: hypertension Respiratory: pneumonia, ASTHMA, COPD Gastrointestinal: GERD, COLORECTAL CA Hepatic: NONE Renal: NONE Musculoskeletal: osteoarthritis, BACK, BONE CA Psychiatric: NONE Endocrine: NONE Blood Disorders: pancytopenia, MDS Cancer(s): rectal ca BONE CANCER VISCOSITY TESTER/Reproductive: NONE Other Medical Hx: rectal CA, presacral abscess, colovaginal fistula Surgical History Surgical History: hernia repair-ventral, lower anterior resection with diverting ileostomy 2006 reversal in 2006 with creation of an ileostomy and subsequent reversal in tonsillectomy diverting loop ileostomy Psychosocial History Who Do You Live With? spouse Services at Home: None ETOH Use: denies use Illicit Drug Use: denies illicit drug use Functional Ability ADLs Independent: dressing, eating, toileting, bathing. Ambulation: independent IADLs Independent: shopping, housework, finances, food prep, telephone, transportation , medication admin. Exam & Diagnostic Data Vital Signs and I&O Vital Signs Date Time Temp Pulse Resp B/P B/P Pulse O2 O2 Flow FiO2 Mean Ox Delivery Rate 06/23 0520 97.5 65 22 168/69 98 Nasal 6.0L Cannula 06/22 2222 97.5 67 24 120/57 95 Nasal 6.0L Cannula 06/22 2036 99.8 76 24 143/63 95 Nasal 6.0L Cannula 06/22 1759 95 Nasal 3.0L Cannula 06/22 1755 98.8 74 24 150/74 94 Nasal 3.0L Cannula Intake & Output 06/23 0800 06/23 0000 06/22 1600 Intake Total 1000 1000 Output Total 550 Balance 450 1000 Intake, IV 1000 1000 Output, Stool 150 Output, Urine 400 Patient 106.594 kg Weight Weight Reported by Patient Measurement Method Physical Exam: General Appearance: well developed/nourished, no apparent distress, alert, awake , comfortable, obese Head: normal appearance Respiratory: chest non-tender, no respiratory distress, quiet respiration, decrease breath sound LLL, On 6L NC Cardiovascular: regular rate/rhythm Gastrointestinal: soft, non-tender, no organomegaly Extremities: no edema Neurologic/Psych: awake, alert, oriented x 3 Cranial Nerves: normal speech Skin: cool and dry Lymphatic: no anterior cervical pricilla Last 48 Hours of Lab Results: Laboratory Tests 06/23 06/23 06/23 0600 0510 0510 Chemistry Sodium (137 - 145 mmol/L) 141 Potassium (3.5 - 5.1 mmol/L) 4.5 Chloride (98 - 107 mmol/L) 109 H Carbon Dioxide (22 - 30 mmol/L) 24 Anion Gap (5 - 16) 9 BUN (7 - 17 mg/dL) 14 Creatinine (0.5 - 1.0 mg/dL) 0.7 Estimated GFR (>60 ml/min) > 60 BUN/Creatinine Ratio (7 - 25 %) 20.0 Magnesium (1.6 - 2.3 mg/dL) 2.2 Troponin I (< 0.11 ng/ml) 0.12 *H Hematology CBC w Diff Cancelled MAN DIFF ORDERED WBC (4.8 - 10.8 /CUMM) Cancelled 1.7 L RBC (4.20 - 5.40 /CUMM) Cancelled 2.46 L Hgb (12.0 - 16.0 G/DL) Cancelled 8.8 L Hct (37 - 47 %) Cancelled 26.0 L MCV (81.0 - 99.0 FL) Cancelled 105.8 H MCH (27.0 - 31.0 PG) Cancelled 36.0 H MCHC (33.0 - 37.0 G/DL) Cancelled 34.0 RDW (11.5 - 14.5 %) Cancelled 24.4 H Plt Count (130 - 400 /CUMM) Cancelled 61 L MPV (7.4 - 10.4 FL) Cancelled 8.6 Gran % (42.2 - 75.2 %) 74.5 Lymphocytes % (20.5 - 51.1 %) 18.1 L Monocytes % (1.7 - 9.3 %) 7.4 Eosinophils % (0 - 5 %) 0 Basophils % (0.0 - 2.0 %) 0 Absolute Granulocytes (1.4 - 6.5 /CUMM) 1.3 L Segmented Neutrophils (42.2 - 75.2 %) 52 Band Neutrophils (0.0 - 5.0 %) 31 H Absolute Lymphocytes (1.2 - 3.4 /CUMM) 0.3 L Lymphocytes (20.5 - 51.1 %) 14 L Monocytes (1.7 - 9.3 %) 1 L Absolute Monocytes (0.10 - 0.60 /CUMM) 0.1 Absolute Eosinophils (0.0 - 0.7 /CUMM) 0 Basophils (0.0 - 2.0 %) 1 Absolute Basophils (0.0 - 0.2 /CUMM) 0 Metamyelocytes (0.0 - 1.0 %) 1 Platelet Estimate (ADEQUATE) DECREASED Anisocytosis 1+ Macrocytic Cells 2+ 06/23 06/23 06/22 0230 0030 1999 Blood Gas Bicarbonate Actual (22 - 26 MEQ/L) 26 Mixed VBG pH (7.31 - 7.41 PH) 7.34 Mixed VBG pCO2 (41 - 51 TORR) 50 Mixed VBG O2 Saturation (35 - 45 TORR) 29 L Carboxyhemoglobin (1.5 - 5.0 %) 1.4 L O2 Concentration % 3LPM O2 Delivery Method NC Chemistry Lactic Acid (0.7 - 2.1 mmol/L) 1.1 Troponin I (< 0.11 ng/ml) 0.19 *H Miscellaneous Phlebotomy Draw Site VENOUS Urines Urinalysis MOD H Urine Color (YEL,AMB,STR) YEL Urine Clarity (CLEAR) HAZY H Urine pH (5.0 - 8.0) 6.5 Ur Specific [place] (1.001 - 1.035) <= 1.005 Urine Protein (NEG,<30 MG/DL) NEG Urine Ketones (NEG) NEG Urine Nitrite (NEG) NEG Urine Bilirubin (NEG) NEG Urine Urobilinogen (0.1 - 1.0 EU/dl) 0.2 Ur Leukocyte Esterase (NEG) LARGE H Ur Microscopic SEDIMENT EXAMINED Urine RBC (0 - 5 /HPF) 5-10 H Urine WBC (0 - 2 /HPF) 15-25 H Ur Epithelial Cells (NONE,FEW) MOD H Urine Bacteria (NEG/NONE) MOD H Micro UA Comment Urine Hemoglobin (NEG) SMALL H Urine Glucose (N MG/DL) NEG 06/22 1830 Chemistry Sodium (137 - 145 mmol/L) 135 L Potassium (3.5 - 5.1 mmol/L) 4.5 Chloride (98 - 107 mmol/L) 99 Carbon Dioxide (22 - 30 mmol/L) 29 Anion Gap (5 - 16) 7 BUN (7 - 17 mg/dL) 15 Creatinine (0.5 - 1.0 mg/dL) 0.7 Estimated GFR (>60 ml/min) > 60 BUN/Creatinine Ratio (7 - 25 %) 21.4 Glucose (65 - 99 mg/dL) 112 H Lactic Acid (0.7 - 2.1 mmol/L) 0.9 Calcium (8.4 - 10.2 mg/dL) 8.4 Total Bilirubin (0.2 - 1.3 mg/dL) 1.1 AST (14 - 36 U/L) 53 H ALT (9 - 52 U/L) 48 Alkaline Phosphatase (<127 U/L) 99 Troponin I (< 0.11 ng/ml) 0.22 *H Total Protein (6.3 - 8.2 g/dL) 6.7 Albumin (3.5 - 5.0 g/dL) 3.3 L Globulin (1.9 - 4.2 gm/dL) 3.4 Albumin/Globulin Ratio (1.1 - 2.2 %) 1.0 L Lipase (23 - 300 U/L) 42 Hematology CBC w Diff MAN DIFF ORDERED WBC (4.8 - 10.8 /CUMM) 2.1 L RBC (4.20 - 5.40 /CUMM) 2.48 L Hgb (12.0 - 16.0 G/DL) 8.8 L Hct (37 - 47 %) 26.1 L MCV (81.0 - 99.0 FL) 105.1 H MCH (27.0 - 31.0 PG) 35.5 H MCHC (33.0 - 37.0 G/DL) 33.8 RDW (11.5 - 14.5 %) 24.8 H Plt Count (130 - 400 /CUMM) 70 L MPV (7.4 - 10.4 FL) 9.2 Gran % (42.2 - 75.2 %) 76.1 H Lymphocytes % (20.5 - 51.1 %) 18.5 L Monocytes % (1.7 - 9.3 %) 5.3 Eosinophils % (0 - 5 %) 0 Basophils % (0.0 - 2.0 %) 0.1 Absolute Granulocytes (1.4 - 6.5 /CUMM) 1.6 Segmented Neutrophils (42.2 - 75.2 %) 53 Band Neutrophils (0.0 - 5.0 %) 18 H Absolute Lymphocytes (1.2 - 3.4 /CUMM) 0.4 L Lymphocytes (20.5 - 51.1 %) 25 Monocytes (1.7 - 9.3 %) 4 Absolute Monocytes (0.10 - 0.60 /CUMM) 0.1 Absolute Eosinophils (0.0 - 0.7 /CUMM) 0 Absolute Basophils (0.0 - 0.2 /CUMM) 0 Platelet Estimate (ADEQUATE) DECREASED Polychromasia 1+ Anisocytosis 1+ Macrocytic Cells 1+ Imaging/Other Studies: CXR 06/22/2018: Focal dense consolidation at the left lung base is new since the prior exam . The right lung is clear. The heart size is enlarged. There are calcifications of aortic arch. There is no pulmonary vascular congestion. IMPRESSION: Dense consolidation left lung base. Assessment/Plan Assessment: Ms. 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 She presented with chills, sweating, and fatigue. Evaluation in the ED demonstrated likely sepsis with pneumonia. She continues to be pancytopenic. She has 18% bands. This is 31% morning. Her platelet count and WBC did decrease. This may be dilutional. Her kidney function and liver function are relatively stable. She's been afebrile. She is currently on vancomycin and ceftazidime. Blood cultures pending. She'll continue with antibiotic for now. For her MDS, she will continue to be monitored. Lenalidomide will continue to be held. She'll need to follow-up as an outpatient. Her elevated troponin is likely demand ischemia. Recommendations: Sepsis of pulmonary origin: -continue current antibiotics -follow up culture -taper oxygen as tolerated Pancytopenia: -transfuse with platelet if <10,000, <20,000 with fever, or <50,000 with bleeding -transfuse with pRBC if hgb <8 MDS: -continue to hold lenalidomide -follow up as outpatient Problem List: 1. Pancytopenia 2. MDS (myelodysplastic syndrome) with 5q deletion 3. Pneumonia Other Findings/Comments: Please call [phone] with any questions or concerns. Consult Acknowledgment - Thank you for your consult request.
--- NOTE | 2018-06-23 08:27 | Sepsis Event Note ---
Sepsis Event Note Severe Sepsis Severe Sepsis Present: No Septic Shock Septic Shock Present: No Event Note Event Note: Ms. Beal is a 76-year-old lady with past medical history significant for colorectal cancer with bone metastases, myelodysplastic syndrome, recently on chemotherapy, who is here for evaluation of recent onset generalized weakness, decreased appetite, nausea, and chills. Her chest imaging showed a consolidation in left lower lobe which is consistent with pneumonia, She has leukopenia/ bandemia, tachypnea with evidence of pneumonia on chest imaging; based on this information the patient meets sepsis criteria. Sepsis Focused Exam Sepsis Cardiac Exam: Regular Rate/Rhythm Sepsis Resp Exam: Rales Sepsis Cap Refill Exam: <2 Sec Sepsis Peripheral Pulse Exam: Normal Sepsis Peripheral Pulse Location: Dorsalis Pedis Sepsis Skin Exam (color): Pale Skin Temp/Moisture Exam: Warm/Dry
--- NOTE | 2018-06-23 12:12 | Cons- Cardiology ---
General Information and HPI Consulting Request Date of Consult: 06/23/18 Requested By: Benson Lock MD Reason for Consult: Elevated troponin Source of Information: patient, old records History of Present Illness: This is a 72-year-old female with a history of myelodysplastic syndrome, COPD, hypertension, and rectal cancer status post neoadjuvant chemo who was recently admitted with symptomatic anemia and now presents with a chief complaint of 2 days of fevers with weakness; reports a minimally productive cough; denies associated chest pain or palpitations. She denies nausea, vomiting, syncope, slurring of speech, or focal weakness. She did have a mild troponin elevation on recent admission but no obvious wall motion abnormalities on technically difficult echocardiogram. She denies a prior history of known coronary artery disease. A recent CT angiogram was negative for pulmonary embolism. Allergies/Medications Allergies: Coded Allergies: aspirin (Intermediate, GI UPSET 06/22/18) gluten (Mild, GI UPSET 06/22/18) lactase (From DAIRY AID) (Mild, LACTOSE INTOLERANT 06/22/18) Home Med List: Albuterol Sulfate (Proair Hfa) 90 MCG HFA.AER.AD 2 PUF INH Q6H PRN RESPIRATORY (Reported) Budesonide/Formoterol Fumarate (Symbicort 160-4.5 Mcg Inhaler) 160 MCG-4.5 MCG/ ACTUATION HFA.AER.AD 2 PUF INH BID RESPIRATORY (Reported) Clopidogrel Bisulfate (Plavix) 75 MG TABLET 75 MG PO DAILY HEART . Hydromorphone HCl 4 MG TABLET 1 TAB PO Q4 PRN PAIN (Reported) Ipratropium/Albuterol Sulfate (Combivent Respimat Inhal [place]) 20 MCG-100 MCG/ ACTUATION MIST.INHAL 1 PUFF INH 4XDAILY RESP. (Reported) Oxycodone HCl (Oxycontin) 20 MG TAB.ER.12H 1 TAB PO Q12H PAIN (Reported) Zolpidem Tartrate (Ambien) 5 MG TABLET 1 TAB PO QHS PRN PAIN (Reported) Current Medications: Current Medications Sig/Dontae Start time Last Medication Dose Route Stop Time Status Admin Acetaminophen 0 .STK-MED ONE 06/23 1131 DC IV Acetaminophen 1,000 MG Q6P PRN 06/22 2230 AC 06/23 IV 1115 Acetaminophen 975 MG ONCE ONE 06/22 2015 DC 06/22 PO 06/22 Acetaminophen 0 .STK-MED ONE 06/22 2011 DC PO Budesonide/ 2 PUF BID 06/23 09 AC 06/23 Formoterol Fumarate INH 0830 Ceftazidime 1,000 MG Q12 06/23 09 AC 06/23 IV 0830 Ceftazidime 0 .STK-MED ONE 06/23 0803 DC .ROUTE Ceftazidime 0 .STK-MED ONE 06/22 2104 DC .ROUTE Ceftazidime 1,000 MG ONCE ONE 06/22 2000 DC 06/22 IV 06/22 Clopidogrel Bisulfate 75 MG DAILY 06/23 09 AC 06/23 PO 08 Clopidogrel Bisulfate 0 .STK-MED ONE 06/23 08 DC PO Hydromorphone HCl 1 MG Q4 HRS NEEDED PRN 06/22 2230 AC IV Hydromorphone HCl 0 .STK-MED ONE 06/22 2012 DC PO Hydromorphone HCl 2 MG ONCE ONE 06/22 2000 DC 06/22 PO 06/22 Ketorolac 0 .STK-MED ONE 06/229 DC Tromethamine .ROUTE Ketorolac 30 MG ONCE ONE 06/22 2215 DC 06/22 Tromethamine IV 06/22 2216 2240 Methylprednisolone 0 .STK-MED ONE 06/22 2229 DC .ROUTE Methylprednisolone 60 MG ONCE ONE 06/22 2215 DC 06/22 IV 06/22 2216 2240 Morphine Sulfate 0 .STK-MED ONE 06/22 2229 DC .ROUTE Morphine Sulfate 2 MG ONCE ONE 06/22 2215 DC 06/22 IV 06/22 2216 2240 Ondansetron HCl 0 .STK-MED ONE 06/23 1128 DC .ROUTE Ondansetron HCl 4 MG Q6P PRN 06/22 2230 AC 06/23 IV 1110 Ondansetron HCl 4 MG ONCE ONE 06/22 1845 DC 06/22 IV 06/22 1846 1832 Ondansetron HCl 0 .STK-MED ONE 06/22 1829 DC .ROUTE Oxycodone HCl 0 .STK-MED ONE 06/23 1128 DC PO Oxycodone HCl 0 .STK-MED ONE 06/23 0048 DC PO Oxycodone HCl 20 MG Q12H 06/22 2300 AC 06/23 PO 1115 Promethazine HCl 0 .STK-MED ONE 06/22 2020 DC .ROUTE Promethazine HCl 12.5 MG ONCE ONE 06/22 2015 DC 06/22 IV 06/22 Sodium Chloride 1,000 ML BOLUS ONE 06/22 2230 DC 06/22 IV 06/22 2329 2300 Sodium Chloride 1,000 ML BOLUS ONE 06/22 2230 DC 06/23 IV 06/22 2329 0050 Sodium Chloride 1,000 ML Q13H 06/22 2230 AC 06/23 IV 0245 Sodium Chloride 1,000 ML BOLUS ONE 06/22 1845 DC 06/22 IV 06/22 1944 1832 Vancomycin HCl 1,500 MG DAILY 06/23 2100 AC Sodium Chloride 250 ML IV Vancomycin HCl 1,500 MG DAILY 06/23 0900 DC Sodium Chloride 250 ML IV Vancomycin HCl 0 .STK-MED ONE 06/22 2105 DC .ROUTE Vancomycin HCl 1,000 MG ONCE ONE 06/22 2000 DC 06/22 Sodium Chloride 250 ML IV 06/22 Zolpidem Tartrate 0 .STK-MED ONE 06/23 0048 DC PO Zolpidem Tartrate 5 MG QPM PRN 06/22 2300 06/23 PO 0050 Review of Systems Review of Systems: Review of systems as per HPI. The remainder of a 10 point review of systems was reviewed and was otherwise negative. Past History Travel History Traveled to [place] past 21 day No Medical History Neurological: NONE EENT: allergies Cardiovascular: hypertension Respiratory: pneumonia, ASTHMA, COPD Gastrointestinal: GERD, COLORECTAL CA Hepatic: NONE Renal: NONE Musculoskeletal: osteoarthritis, BACK, BONE CA Psychiatric: NONE Endocrine: NONE Blood Disorders: pancytopenia, MDS Cancer(s): rectal ca BONE CANCER DAYCARE MANAGER/Reproductive: NONE Other Medical Hx: rectal CA, presacral abscess, colovaginal fistula Surgical History Surgical History: hernia repair-ventral, lower anterior resection with diverting ileostomy 2006 reversal in 2006 with creation of an ileostomy and subsequent reversal in tonsillectomy diverting loop ileostomy Psychosocial History Who Do You Live With? spouse Services at Home: None Smoking Status: Former Smoker ETOH Use: denies use Illicit Drug Use: denies illicit drug use Functional Ability ADLs Independent: dressing, eating, toileting, bathing. Ambulation: independent IADLs Independent: shopping, housework, finances, food prep, telephone, transportation , medication admin. Exam & Diagnostic Data Vital Signs and I&O Vital Signs Date Time Temp Pulse Resp B/P B/P Pulse O2 O2 Flow FiO2 Mean Ox Delivery Rate 06/23 1115 97.5 06/23 0844 96 Nasal 6.0L Cannula 06/23 0520 97.5 65 22 168/69 98 Nasal 6.0L Cannula 06/22 2222 97.5 67 24 120/57 95 Nasal 6.0L Cannula 06/22 2036 99.8 76 24 143/63 95 Nasal 6.0L Cannula 06/22 1759 95 Nasal 3.0L Cannula 06/22 1755 98.8 74 24 150/74 94 Nasal 3.0L Cannula Intake & Output 06/23 1600 06/23 0806/23 0000 06/22 1600 06/22 0806/22 0000 Intake Total 1000 1000 Output Total 550 Balance 450 1000 Intake, IV 1000 1000 Output, Stool 150 Output, Urine 400 Patient 235 lb 235 lb Weight Weight Reported by Patient Measurement Method Physical Exam: General: no apparent distress. Alert. Eyes: No obvious scleral icterus. HEENT: No jugular venous distention or abnormal jugular venous pulsations. Cardiovascular: Normal intensity S1/S2. PMI not grossly displaced. Respiratory: Decreased left-sided air entry Abdomen: Soft, nontender with no guarding or rebound tenderness. Musculoskeletal: No clubbing or cyanosis noted; trace lower extremity edema Skin: warm Neurologic: No gross focal deficits noted. Labs/Dar Results: Laboratory Tests 06/23 06/23 06/23 0600 0510 0510 Chemistry Sodium (137 - 145 mmol/L) 141 Potassium (3.5 - 5.1 mmol/L) 4.5 Chloride (98 - 107 mmol/L) 109 H Carbon Dioxide (22 - 30 mmol/L) 24 Anion Gap (5 - 16) 9 BUN (7 - 17 mg/dL) 14 Creatinine (0.5 - 1.0 mg/dL) 0.7 Estimated GFR (>60 ml/min) > 60 BUN/Creatinine Ratio (7 - 25 %) 20.0 Magnesium (1.6 - 2.3 mg/dL) 2.2 Troponin I (< 0.11 ng/ml) 0.12 *H Hematology CBC w Diff Cancelled MAN DIFF ORDERED WBC (4.8 - 10.8 /CUMM) Cancelled 1.7 L RBC (4.20 - 5.40 /CUMM) Cancelled 2.46 L Hgb (12.0 - 16.0 G/DL) Cancelled 8.8 L Hct (37 - 47 %) Cancelled 26.0 L MCV (81.0 - 99.0 FL) Cancelled 105.8 H MCH (27.0 - 31.0 PG) Cancelled 36.0 H MCHC (33.0 - 37.0 G/DL) Cancelled 34.0 RDW (11.5 - 14.5 %) Cancelled 24.4 H Plt Count (130 - 400 /CUMM) Cancelled 61 L MPV (7.4 - 10.4 FL) Cancelled 8.6 Gran % (42.2 - 75.2 %) 74.5 Lymphocytes % (20.5 - 51.1 %) 18.1 L Monocytes % (1.7 - 9.3 %) 7.4 Eosinophils % (0 - 5 %) 0 Basophils % (0.0 - 2.0 %) 0 Absolute Granulocytes (1.4 - 6.5 /CUMM) 1.3 L Segmented Neutrophils (42.2 - 75.2 %) 52 Band Neutrophils (0.0 - 5.0 %) 31 H Absolute Lymphocytes (1.2 - 3.4 /CUMM) 0.3 L Lymphocytes (20.5 - 51.1 %) 14 L Monocytes (1.7 - 9.3 %) 1 L Absolute Monocytes (0.10 - 0.60 /CUMM) 0.1 Absolute Eosinophils (0.0 - 0.7 /CUMM) 0 Basophils (0.0 - 2.0 %) 1 Absolute Basophils (0.0 - 0.2 /CUMM) 0 Metamyelocytes (0.0 - 1.0 %) 1 Platelet Estimate (ADEQUATE) DECREASED Anisocytosis 1+ Macrocytic Cells 2+ 06/23 06/23 06/22 0230 0030 1999 Blood Gas Bicarbonate Actual (22 - 26 MEQ/L) 26 Mixed VBG pH (7.31 - 7.41 PH) 7.34 Mixed VBG pCO2 (41 - 51 TORR) 50 Mixed VBG O2 Saturation (35 - 45 TORR) 29 L Carboxyhemoglobin (1.5 - 5.0 %) 1.4 L O2 Concentration % 3LPM O2 Delivery Method LA Chemistry Lactic Acid (0.7 - 2.1 mmol/L) 1.1 Troponin I (< 0.11 ng/ml) 0.19 *H Miscellaneous Phlebotomy Draw Site VENOUS Urines Urinalysis MOD H Urine Color (YEL,AMB,STR) YEL Urine Clarity (CLEAR) HAZY H Urine pH (5.0 - 8.0) 6.5 Ur Specific [place] (1.001 - 1.035) <= 1.005 Urine Protein (NEG,<30 MG/DL) NEG Urine Ketones (NEG) NEG Urine Nitrite (NEG) NEG Urine Bilirubin (NEG) NEG Urine Urobilinogen (0.1 - 1.0 EU/dl) 0.2 Ur Leukocyte Esterase (NEG) LARGE H Ur Microscopic SEDIMENT EXAMINED Urine RBC (0 - 5 /HPF) 5-10 H Urine WBC (0 - 2 /HPF) 15-25 H Ur Epithelial Cells (NONE,FEW) MOD H Urine Bacteria (NEG/NONE) MOD H Micro UA Comment Urine Hemoglobin (NEG) SMALL H Urine Glucose (N MG/DL) NEG 06/22 1830 Chemistry Sodium (137 - 145 mmol/L) 135 L Potassium (3.5 - 5.1 mmol/L) 4.5 Chloride (98 - 107 mmol/L) 99 Carbon Dioxide (22 - 30 mmol/L) 29 Anion Gap (5 - 16) 7 BUN (7 - 17 mg/dL) 15 Creatinine (0.5 - 1.0 mg/dL) 0.7 Estimated GFR (>60 ml/min) > 60 BUN/Creatinine Ratio (7 - 25 %) 21.4 Glucose (65 - 99 mg/dL) 112 H Lactic Acid (0.7 - 2.1 mmol/L) 0.9 Calcium (8.4 - 10.2 mg/dL) 8.4 Total Bilirubin (0.2 - 1.3 mg/dL) 1.1 AST (14 - 36 U/L) 53 H ALT (9 - 52 U/L) 48 Alkaline Phosphatase (<127 U/L) 99 Troponin I (< 0.11 ng/ml) 0.22 *H Total Protein (6.3 - 8.2 g/dL) 6.7 Albumin (3.5 - 5.0 g/dL) 3.3 L Globulin (1.9 - 4.2 gm/dL) 3.4 Albumin/Globulin Ratio (1.1 - 2.2 %) 1.0 L Lipase (23 - 300 U/L) 42 Hematology CBC w Diff MAN DIFF ORDERED WBC (4.8 - 10.8 /CUMM) 2.1 L RBC (4.20 - 5.40 /CUMM) 2.48 L Hgb (12.0 - 16.0 G/DL) 8.8 L Hct (37 - 47 %) 26.1 L MCV (81.0 - 99.0 FL) 105.1 H MCH (27.0 - 31.0 PG) 35.5 H MCHC (33.0 - 37.0 G/DL) 33.8 RDW (11.5 - 14.5 %) 24.8 H Plt Count (130 - 400 /CUMM) 70 L MPV (7.4 - 10.4 FL) 9.2 Gran % (42.2 - 75.2 %) 76.1 H Lymphocytes % (20.5 - 51.1 %) 18.5 L Monocytes % (1.7 - 9.3 %) 5.3 Eosinophils % (0 - 5 %) 0 Basophils % (0.0 - 2.0 %) 0.1 Absolute Granulocytes (1.4 - 6.5 /CUMM) 1.6 Segmented Neutrophils (42.2 - 75.2 %) 53 Band Neutrophils (0.0 - 5.0 %) 18 H Absolute Lymphocytes (1.2 - 3.4 /CUMM) 0.4 L Lymphocytes (20.5 - 51.1 %) 25 Monocytes (1.7 - 9.3 %) 4 Absolute Monocytes (0.10 - 0.60 /CUMM) 0.1 Absolute Eosinophils (0.0 - 0.7 /CUMM) 0 Absolute Basophils (0.0 - 0.2 /CUMM) 0 Platelet Estimate (ADEQUATE) DECREASED Polychromasia 1+ Anisocytosis 1+ Macrocytic Cells 1+ Diagnostic Data EKG Results Tracing was personally reviewed and shows sinus rhythm at 63 bpm with nonspecific T-wave abnormality CXR Results Dense consolidation left lung base. Other Results Recent echocardiogram Poor Echo window. Normal left ventricular systolic function. Right ventricle not well visualized. Moderate Pulmonary hypertension by doppler. Tesfaye hCeatham M.D. (Electronically Signed) Final Date: 09 June 2018 07:20 Assessment/Plan Assessment/Plan 1. Pneumonia 2. Minimal troponin elevation likely due to demand ischemia 3. Pancytopenia with history of myelodysplastic syndrome 4. Rectal cancer status post neoadjuvant chemotherapy 5. COPD 6. Hypertension Patient's minimal troponin elevation is likely due to demand ischemia in the setting of pneumonia. Can continue on her outpatient Plavix if no objection from hematology. She may be a candidate for outpatient ischemic testing in the future. Antibiotics per the medical team. Monitor blood pressure and if it is persistently elevated we may need to add antihypertensive regimen. She had similar troponin elevation on recent admission and echocardiogram showed no obvious regional wall motion abnormalities. She also had a recent CT angiogram that was negative for pulmonary embolism. Sukh Gamboa MD FAC Consult Acknowledgment - Thank you for your consult request.
--- NOTE | 2018-06-23 12:43 | PN- Att Addend ---
Attending Addendum Attending Brief Note Patient seen and examined. Resting comfortably and not in acute distress. Reports feeling lethargic. Denies shortness of breath at rest. Denies any productive cough. Denies chest pain or palpitations. She is currently afebrile. She is hemodynamically stable. Vital Signs Date Time Temp Pulse Resp B/P B/P Pulse O2 O2 Flow FiO2 Mean Ox Delivery Rate 06/23 1115 97.5 06/23 0844 96 Nasal 6.0L Cannula 06/23 0520 97.5 65 22 168/69 98 Nasal 6.0L Cannula 06/22 2222 97.5 67 24 120/57 95 Nasal 6.0L Cannula 06/22 2036 99.8 76 24 143/63 95 Nasal 6.0L Cannula 06/22 1759 95 Nasal 3.0L Cannula 06/22 1755 98.8 74 24 150/74 94 Nasal 3.0L Cannula General appearance: Well-developed and not in any acute distress. HEENT: Anicteric, no pallor, pupils equal and reactive. Neck: Supple with no jugular venous distention. Heart: S1-S2 regular with no audible murmur. Lungs: Adequate and symmetric air entry bilaterally with no added sounds. Abdomen: Nondistended with normal bowel sounds. Soft, nontender with no palpable masses. Extremities: No pedal edema. No cyanosis. Skin: Intact Laboratory Tests 06/23/18 0600: CBC w Diff Cancelled, WBC Cancelled, RBC Cancelled, Hgb Cancelled, Hct Cancelled , MCV Cancelled, MCH Cancelled, MCHC Cancelled, RDW Cancelled, Plt Count Cancelled, MPV Cancelled 06/23/18 0510: Troponin I 0.12 *H 06/23/18 0510: Anion Gap 9, Estimated GFR > 60, BUN/Creatinine Ratio 20.0, Magnesium 2.2, CBC w Diff MAN DIFF ORDERED, RBC 2.46 L, MCV 105.8 H, MCH 36.0 H, MCHC 34.0, RDW 24.4 H, MPV 8.6, Gran % 74.5, Lymphocytes % 18.1 L, Monocytes % 7.4, Eosinophils % 0, Basophils % 0, Absolute Granulocytes 1.3 L, Segmented Neutrophils 52, Band Neutrophils 31 H, Absolute Lymphocytes 0.3 L, Lymphocytes 14 L, Monocytes 1 L, Absolute Monocytes 0.1, Absolute Eosinophils 0, Basophils 1, Absolute Basophils 0, Metamyelocytes 1, Platelet Estimate DECREASED, Anisocytosis 1+, Macrocytic Cells 2+ 06/23/18 0230: Urinalysis MOD H, Urine Color YEL, Urine Clarity HAZY H, Urine pH 6.5, Ur Specific [place] <= 1.005, Urine Protein NEG, Urine Ketones NEG, Urine Nitrite NEG, Urine Bilirubin NEG, Urine Urobilinogen 0.2, Ur Leukocyte Esterase LARGE H , Ur Microscopic SEDIMENT EXAMINED, Urine RBC 5-10 H, Urine WBC 15-25 H, Ur Epithelial Cells MOD H, Urine Bacteria MOD H, Micro UA Comment , Urine Hemoglobin SMALL H, Urine Glucose NEG 06/23/18 0030: Lactic Acid 1.1, Troponin I 0.19 *H 06/22/181999: Bicarbonate Actual 26, Mixed VBG pH 7.34, Mixed VBG pCO2 50, Mixed VBG O2 Saturation 29 L, Carboxyhemoglobin 1.4 L, O2 Concentration % 3LPM, O2 Delivery Method NC, Phlebotomy Draw Site VENOUS 06/22/18 1830: Anion Gap 7, Estimated GFR > 60, BUN/Creatinine Ratio 21.4, Glucose 112 H, Lactic Acid 0.9, Calcium 8.4, Total Bilirubin 1.1, AST 53 H, ALT 48, Alkaline Phosphatase 99, Troponin I 0.22 *H, Total Protein 6.7, Albumin 3.3 L, Globulin 3.4, Albumin/Globulin Ratio 1.0 L, Lipase 42, CBC w Diff MAN DIFF ORDERED, RBC 2.48 L, MCV 105.1 H, MCH 35.5 H, MCHC 33.8, RDW 24.8 H, MPV 9.2, Gran % 76.1 H, Lymphocytes % 18.5 L, Monocytes % 5.3, Eosinophils % 0, Basophils % 0.1, Absolute Granulocytes 1.6, Segmented Neutrophils 53, Band Neutrophils 18 H, Absolute Lymphocytes 0.4 L, Lymphocytes 25, Monocytes 4, Absolute Monocytes 0.1 , Absolute Eosinophils 0, Absolute Basophils 0, Platelet Estimate DECREASED, Polychromasia 1+, Anisocytosis 1+, Macrocytic Cells 1+ Microbiology 06/23 230 URINE ROUT: Legionella Antigen - COMP 06/23 230 URINE ROUT: Streptococcus pneumoniae Antigen (M - COMP 06/22 2259 LOWER RESP: Respiratory Culture - COLB 06/22 2259 LOWER RESP: Gram Stain - COLB 06/22 2045 BLOOD: Blood Culture - RES 06/22 2030 BLOOD: Blood Culture - RES Problems: 1. Left sided pneumonia 2. Chronic hypoxic respiratory failure secondary to severe COPD 3. Pulmonary hypertension 4. Myelodysplastic syndrome; transfusion dependent 5. History of rectal cancer Plan: -Recommend checking nasal nares to rule out MRSA. -If nasal screen is negative discontinue vancomycin. Discontinue ceftazidime. Begin patient on Rocephin and azithromycin. Unfortunately he is not producing sputum samples to help guide antibiotic therapy. -Wean down oxygen supplementation as tolerated. She is on 2 L at baseline. There is no documentation of hypoxemia on her baseline 2 L. - Continue her bronchodilator regimen including albuterol, ipratropium and Symbicort. -She is again presenting with demand ischemia, secondary to the stress of her pulmonary infection. Continue antiplatelet therapy with Plavix (she is allergic to aspirin) further ischemic workup can be pursued as an outpatient with her ceiling installer service. Echocardiogram done during last admission showed no evidence of wall motion abnormalities. -Hemoglobin level appears stable. Transfuse to keep hemoglobin level greater than 8. -Please ensure that sequential compression devices are warm at all times during the day for DVT prophylaxis, due to her thrombocytopenia she cannot be on chemical DVT prophylaxis. -Patient does appear to have a pulmonary infection at present. She however is not meeting the sepsis 3 criteria for definition of sepsis. Laboratory parameters I explained to her underlying myelodysplastic syndrome. Her troponin elevation is probably due to underlying coronary disease.
[2018-06-24] VITALS: BP 146/68
--- NOTE | 2018-06-24 07:11 | PN- Housestaff ---
Lola Sheridan 06/24/18 0710: Subjective Follow-up For: PNA leading to sepsis, COPD exacerbation, Type 2 [place] Complaints: Feels very sick , gen aches, Rt leg pain worse than left Tele-Events Since Last Visit: Normal sinus rhythm. Heart rate 75-92. 6:09 AM her heart rate increased to 150s and she was in A. fib. This is a new onset A. fib with RVR Subjective: Patient was seen and examined lying in bed. She was in respiratory distress, shortness of breath. She complained of feeling very sick and generalized body aches. She also complained of pain in her right leg which is more than the baseline pain in left leg. Review of Systems Constitutional: Reports: see HPI. Objective Last 24 Hrs of Vital Signs/I&O Vital Signs Date Time Temp Pulse Resp B/P B/P Pulse O2 O2 Flow FiO2 Mean Ox Delivery Rate 06/24 2046 87 13 135/56 06/24 1946 98 Nasal 75% Cannula 06/24 1936 97.2 06/24 1837 99.0 06/24 1647 99 Nasal 80% Cannula 06/24 1600 98 Nasal 80% Cannula 06/24 1600 97.9 96 96 130/70 98 Nasal 80% Cannula 06/24 1408 110 110/87 06/24 1339 110 95 06/24 1310 88 95 06/24 1200 94 Nasal 80% Cannula 06/24 1200 98.2 77 22 150/70 92 BIPAP 06/24 1015 96 Nasal 85% Cannula 06/24 0800 Nasal 8L Cannula 06/24 0456 89 Nasal 6.0L Cannula 06/24 0038 92 Nasal 6.0L Cannula 06/24 0000 92 Nasal 6.0L Cannula 06/24 0000 98.5 85 22 146/68 88 Nasal 6.0L Cannula Intake & Output 06/24 1600 06/24 0800 06/24 0000 Intake Total 220 220 690 Output Total 350 2 Balance -130 220 688 Intake, IV 20 250 Intake, Oral 200 220 440 Output, Stool 150 2 Output, Urine 200 Patient 243 lb Weight Physical Exam General Appearance: Alert, Oriented X3, Mild Distress Skin: No Breakdown Skin Temp/Moisture Exam: Warm/Dry Sepsis Skin Exam (color): Normal for Ethnicity HEENT: Atraumatic, Mucous Membr. moist/pink Neck: Supple Cardiovascular: Regular Rate, Normal S1, Normal S2 Lungs: b/l ronchi & crackles Abdomen: Normal Bowel Sounds, Soft, No Tenderness, No Hepatospenomegaly Neurological: Normal Speech, Normal Tone Extremities: No Clubbing Assessment/Plan Assessment: 72-year-old lady with past medical history which is significant for hypertension , COPD (on home O2 as needed), myelodysplastic syndrome, asthma, colorectal cancer (currently on chemotherapy) who was brought to the ED with chief complaint of generalized weakness, nausea, decreased appetite, and sweating. She felt fine Thursday night but on Thursday morning when she woke up she had no appetite, generalized weakness, sweating, nausea, body aches, chills and sweating. Vitals: Afebrile, she is on 7 L high flow oxygen this morning. CXR: Left sided consolidation Trops: 0.22--->0.19--->0.12 Urinary Legionella and S pneumo culture came back negative, blood cultures negative Problems; 1. Sepsis secondary to LLL pneumonia 2. COPD Exacerbation 3. Acute hypoxemic respiratory failure 4. Type 2 myocardial infarction 5. Myelodysplastic syndrome Plan; - Admitted to telemetry for continuous cardiac monitoring - Afebrile but meets sepsis criteria leukopenia, bandemia Because of new onset atrial fibrillation with RVR, we are considering anticoagulation and metoprolol 25 every 8. Per heme on weekends start anticoagulation if platelets are more than 50,000 -Obtain CT chest -Respiratory consult placed -Pulmonary consult will be placed because patient's condition is worsening -Continue antibiotics azithromycin and ceftriaxone - Transfuse if Hgb < 8.0 - Continue home medications - DVT PPx: ALPS - Code: DNR/ DNI Problem List: 1. Bandemia 2. Leukopenia 3. MDS (myelodysplastic syndrome) with 5q deletion 4. Elevated troponin 5. Lower extremity pain, bilateral 6. Pancytopenia 7. Pneumonia Pain Ratin Pain Location: Bilateral lower limbs Pain Goal: Pain 4 or less Pain Plan: For the pain pathway Tomorrow's Labs & Rationales: cbc, bep Feng Fall 06/24/18 1231: Attending Review Statement Attending Statement Attending MD Statement: examined this patient, discuss w/resident/PA/ASSISTANT GOLF COURSE SUPERINTENDENT, agreed w/resident/PA/ASSISTANT GOLF [employer]RSE SUPERINTENDENT, discussed with family, reviewed EMR data (avail), discussed with nursing, discussed with case mgmt, reviewed images, amended to note Attending Assessment/Plan: Patient initally admitted to telemetry for shortness of breath and LL pneumonia initially given vanco/ceftaz in ER, switched to Ceftriaxone/azitromycin yesterday by primary team and now developing acute on chronic respiratory failure with increased oxygen demand and high flow oxygen. She is knonw history of MDS transfuiosn dependent and severe COPD with poor lung reserves. Labs with pancytopenia WBC 2.1, hb 8.9 plt 67 Imaging chest xray with LL Pneumonia. HR irregular and tachy. Afebrile. Pateint admitted to inpatient medical services for possible gram negative gram positive pneumonia with worsening of hypoxia and acute on chronic respiratroy failure now on high flow oxygen. Will empirically broaden antibiotic coverage. Obtain pulmoanry consult. Cosnider CT chest if ok with pulmonary. Continue her bronchodilator regimen including albuterol, ipratropium and Symbicort. Afib cardiology recommend addition of metroprolol and monitor HR. a/c as per cardiology however patient refuses, discuss with hematology if ok to give. Continue antiplatelet therapy. Anemia/myelodysplasia: Hemoglobin level appears stable. Transfuse to keep hemoglobin level greater than 8. DVT prophylaxis. Patient being transferred to ICU for higher level of care. Appreciate pulmonary input.
[2018-06-24 09:15] LABS: ABSOLUTE BASOPHIL COUNT 0 /CUMM (0.0-0.2); ABSOLUTE EOSINOPHIL COUNT 0 /CUMM (0.0-0.7); ABSOLUTE MONOCYTE COUNT 0.1 /CUMM (0.10-0.60); BASOPHIL % 0 % (0.0-2.0); EOSINOPHIL % 0.2 % (0-5); GRANULOCYTE % 48.3 % (42.2-75.2); HEMATOCRIT 26.6 % (37-47); MEAN CORPUSCULAR HGB CONC 33.3 G/DL (33.0-37.0); MEAN CORPUSCULAR VOLUME 105.3 FL (81.0-99.0); MEAN PLATELET VOLUME 8.6 FL (7.4-10.4); RBC DISTRIBUTION WIDTH 25.1 % (11.5-14.5); RED BLOOD CELL CT 2.53 /CUMM (4.20-5.40); WHITE BLOOD CELL COUNT 2.1 /CUMM (4.8-10.8)
--- NOTE | 2018-06-24 09:16 | PN- Hematology ---
Subjective Subjective: She continues to have a cough. She does get short of breath with exertion. She has a right IV infiltration yesterday. She has lot pain on the right side. She has no fever or chills. She denies any abdominal pain. She denies any dysuria. Review of Systems: Constitutional: Reports: weakness. Denies: fever. Cardiovascular: Denies: chest pain. Respiratory: Reports: short of breath. Denies: cough, hemoptysis. GI: Denies: abdominal pain, constipation, diarrhea. Neurological/Psychological: Reports: anxiety. Musculoskeletal: Reports: right arm pain Hematologic/Endocrine: Denies: bruising, bleeding. All Other Systems: Reviewed and Negative Objective Vital Signs and I&Os Vital Signs Date Time Temp Pulse Resp B/P B/P Pulse O2 O2 Flow FiO2 Mean Ox Delivery Rate 06/24 0456 89 Nasal 6.0L Cannula 06/24 0038 92 Nasal 6.0L Cannula 06/24 0000 92 Nasal 6.0L Cannula 06/24 0000 98.5 85 22 146/68 88 Nasal 6.0L Cannula 06/23 2007 Nasal 6.0L Cannula 06/23 1826 94 Nasal 6.0L Cannula 06/23 1803 93 Nasal 6.0L Cannula 06/23 1517 97.5 112 20 154/55 94 Nasal 6.0L Cannula 06/23 1408 97.5 06/23 1120 86 18 162/84 94 Nasal 6.0L Cannula 06/23 1115 97.5 Intake & Output 06/24 1600 06/24 0800 06/24 0000 06/23 1600 06/23 0800 06/23 0000 Intake Total 133 497 9948 1000 Output Total 2 550 Balance 220 736 883 9958 Intake, IV 250 1000 1000 Intake, Oral 220 440 Output, Stool 2 150 Output, Urine 400 Patient 110.223 kg 106.594 kg 106.594 kg Weight Weight Reported by Patient Measurement Method Physical Exam: General Appearance: well developed/nourished, no apparent distress, alert, awake , comfortable, obese Head: normal appearance Respiratory: chest non-tender, no respiratory distress, quiet respiration, decrease breath sound LLL, On 6L NC Cardiovascular: regular rate/rhythm Gastrointestinal: soft, non-tender, no organomegaly Extremities: no edema Neurologic/Psych: awake, alert, oriented x 3 Cranial Nerves: normal speech Skin: cool and dry Lymphatic: no anterior cervical pricilla Current Medications: Current Medications Sig/Dontae Start time Last Medication Dose Route Stop Time Status Admin Acetaminophen 650 MG ONCE ONE 06/23 2330 DC 06/23 PO 06/23 2331 2340 Acetaminophen 0 .STK-MED ONE 06/23 1131 DC IV Acetaminophen 1,000 MG Q6P PRN 06/22 2230 AC 06/23 IV 1115 Albuterol Sulfate 3 ML TID 06/23 2100 AC 06/24 INH 0747 Azithromycin 500 MG Q24H 06/23 1419 AC 06/23 Sodium Chloride 250 ML IV 1500 Budesonide/ 2 PUF BID 06/23 0900 AC 06/24 Formoterol Fumarate INH 0857 Ceftazidime 1,000 MG Q12 06/23 09 DC 06/23 IV 0830 Ceftazidime 0 .STK-MED ONE 06/23 0803 CAN .ROUTE Ceftriaxone Sodium 0 .STK-MED ONE 06/23 1454 DC .ROUTE Ceftriaxone Sodium 1,000 MG Q24H 06/23 1420 AC 06/23 IV 1500 Clopidogrel Bisulfate 75 MG DAILY 06/23 0900 AC 06/24 PO 0857 Hydromorphone HCl 2 MG ONCE ONE 06/24 0500 DC 06/24 PO 06/24 0501 0506 Hydromorphone HCl 2 MG ONCE ONE 06/23 2245 DC 06/23 PO 06/23 2246 2312 Hydromorphone HCl 0 .STK-MED ONE 06/23 1204 DC .ROUTE Hydromorphone HCl 1 MG Q4 HRS NEEDED PRN 06/22 2230 AC 06/24 IV 0826 Ondansetron HCl 4 MG .STK-MED ONE 06/23 1727 DC IM 06/23 1728 Ondansetron HCl 0 .STK-MED ONE 06/23 1128 DC .ROUTE Ondansetron HCl 4 MG Q6P PRN 06/22 2230 AC 06/24 IV 0854 Oxycodone HCl 0 .STK-MED ONE 06/23 1128 DC PO Oxycodone HCl 20 MG Q12H 06/22 2300 AC 06/23 PO 2312 Sodium Chloride 1 SPRAY DAILY NEEDED PRN 06/23 2045 AC 06/23 CHARLENE 2319 Sodium Chloride 1,000 ML Q13H 06/22 2230 AC 06/23 IV 1253 Vancomycin HCl 1,500 MG DAILY 06/23 2100 CAN Sodium Chloride 250 ML IV Zolpidem Tartrate 5 MG QPM PRN 06/22 2300 AC 06/23 PO 0050 Results Last 24 Hours of Lab Results: Laboratory Tests 06/24 0835 Hematology CBC w Diff Pending WBC Pending RBC Pending Hgb Pending Hct Pending MCV Pending MCH Pending MCHC Pending RDW Pending Plt Count Pending MPV Pending Assessment/Plan Hematology Assessment/Recommendations: Ms. 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 Her presentation was concerning for infectious etiology. She does have likely left lower lobe pneumonia. UA is also concerning for UTI but may be colonization. She is currently on antibiotic. She can continue on antibiotics for now. Consider CT scan if persistent oxygen requirement. For her MDS, she may be monitored for now. She may be transfused as needed. Pneumonia: -continue current antibiotics -follow up culture -taper oxygen as tolerated -consider CT scan if persistent O2 requirement Pancytopenia: -transfuse with platelet if <10,000, <20,000 with fever, or <50,000 with bleeding -transfuse with pRBC if hgb <8 -may need repeat bone marrow in the future MDS: -continue to hold lenalidomide -follow up as outpatient Please call [phone] with any questions or concerns. Problem List: 1. Pancytopenia 2. Pneumonia 3. MDS (myelodysplastic syndrome) with 5q deletion
--- NOTE | 2018-06-24 09:35 | PN- Cardiology ---
Subjective Subjective: Telemetry reviewed. Patient developed atrial flutter fibrillation with spontaneous conversion. She apparently was in pain that might have been the stimulant. Today she aches all over complains of ecchymosis from failed phlebotomy but has no specific cardiac complaints Objective Vital Signs and I&Os Vital Signs Date Time Temp Pulse Resp B/P B/P Pulse O2 O2 Flow FiO2 Mean Ox Delivery Rate 06/24 0456 89 Nasal 6.0L Cannula 06/24 0038 92 Nasal 6.0L Cannula 06/24 0000 92 Nasal 6.0L Cannula 06/24 0000 98.5 85 22 146/68 88 Nasal 6.0L Cannula 06/23 2007 Nasal 6.0L Cannula 06/23 1826 94 Nasal 6.0L Cannula 06/23 1803 93 Nasal 6.0L Cannula 06/23 1517 97.5 112 20 154/55 94 Nasal 6.0L Cannula 06/23 1408 97.5 06/23 1120 86 18 162/84 94 Nasal 6.0L Cannula 06/23 1115 97.5 Intake & Output 06/24 1600 06/24 0800 06/24 0000 06/23 1600 06/23 0800 06/23 0000 Intake Total 758 140 9693 1000 Output Total 2 550 Balance 220 328 267 7834 Intake, IV 250 1000 1000 Intake, Oral 220 440 Output, Stool 2 150 Output, Urine 400 Patient 243 lb 235 lb 235 lb Weight Weight Reported by Patient Measurement Method Physical Exam: General exam she appeared in mild distress related to pain Head normocephalic atraumatic Eyes sclera anicteric conjunctiva showed pallor extraocular muscles were normal Neck no jugular venous distention no thyroid masses no palpable nodes Chest lungs were clear bilaterally Heart regular rhythm with a 1/6 systolic moderate murmur Abdomen soft no organomegaly protuberant bowel sounds normal extremities no clubbing cyanosis or edema. Neurological no gross motor or sensory deficits. Current Medications: Current Medications Sig/Dontae Start time Last Medication Dose Route Stop Time Status Admin Acetaminophen 650 MG ONCE ONE 06/23 2330 DC 06/23 PO 06/23 2331 2340 Acetaminophen 0 .STK-MED ONE 06/23 1131 DC IV Acetaminophen 1,000 MG Q6P PRN 06/22 2230 AC 06/23 IV 1115 Albuterol Sulfate 3 ML TID 06/23 2100 AC 06/24 INH 0747 Azithromycin 500 MG Q24H 06/23 1419 AC 06/23 Sodium Chloride 250 ML IV 1500 Budesonide/ 2 PUF BID 06/23 0900 AC 06/24 Formoterol Fumarate INH 0857 Ceftazidime 1,000 MG Q12 06/23 0900 DC 06/23 IV 0830 Ceftazidime 0 .STK-MED ONE 06/23 0803 CAN .ROUTE Ceftriaxone Sodium 0 .STK-MED ONE 06/23 1454 DC .ROUTE Ceftriaxone Sodium 1,000 MG Q24H 06/23 1420 AC 06/23 IV 1500 Clopidogrel Bisulfate 75 MG DAILY 06/23 0900 AC 06/24 PO 0857 Hydromorphone HCl 2 MG ONCE ONE 06/24 0500 DC 06/24 PO 06/24 0501 0506 Hydromorphone HCl 2 MG ONCE ONE 06/23 2245 DC 06/23 PO 06/23 2246 2312 Hydromorphone HCl 0 .STK-MED ONE 06/23 1204 DC .ROUTE Hydromorphone HCl 1 MG Q4 HRS NEEDED PRN 06/22 223 AC 06/24 IV 0826 Ondansetron HCl 4 MG .STK-MED ONE 06/23 1727 DC IM 06/23 1728 Ondansetron HCl 0 .STK-MED ONE 06/23 1128 DC .ROUTE Ondansetron HCl 4 MG Q6P PRN 06/22 2230 AC 06/24 IV 0854 Oxycodone HCl 0 .STK-MED ONE 06/23 1128 DC PO Oxycodone HCl 20 MG Q12H 06/22 2300 AC 06/23 PO 2312 Sodium Chloride 1 SPRAY DAILY NEEDED PRN 06/23 2045 AC 06/23 CHARLENE 2319 Sodium Chloride 1,000 ML Q13H 06/22 2230 06/23 IV 1253 Vancomycin HCl 1,500 MG DAILY 06/23 2100 CAN Sodium Chloride 250 ML IV Zolpidem Tartrate 5 MG QPM PRN 06/22 230 AC 06/23 PO 0050 Results Last 48 Hrs of Labs/Mics: Laboratory Tests 06/24/18 0835: CBC w Diff Pending, WBC Pending, RBC Pending, Hgb Pending, Hct Pending, MCV Pending, MCH Pending, MCHC Pending, RDW Pending, Plt Count Pending, MPV Pending 06/23/18 0600: CBC w Diff Cancelled, WBC Cancelled, RBC Cancelled, Hgb Cancelled, Hct Cancelled , MCV Cancelled, MCH Cancelled, MCHC Cancelled, RDW Cancelled, Plt Count Cancelled, MPV Cancelled 06/23/18 0510: Troponin I 0.12 *H 06/23/18 0510: Anion Gap 9, Estimated GFR > 60, BUN/Creatinine Ratio 20.0, Magnesium 2.2, CBC w Diff MAN DIFF ORDERED, RBC 2.46 L, MCV 105.8 H, MCH 36.0 H, MCHC 34.0, RDW 24.4 H, MPV 8.6, Gran % 74.5, Lymphocytes % 18.1 L, Monocytes % 7.4, Eosinophils % 0, Basophils % 0, Absolute Granulocytes 1.3 L, Segmented Neutrophils 52, Band Neutrophils 31 H, Absolute Lymphocytes 0.3 L, Lymphocytes 14 L, Monocytes 1 L, Absolute Monocytes 0.1, Absolute Eosinophils 0, Basophils 1, Absolute Basophils 0, Metamyelocytes 1, Platelet Estimate DECREASED, Anisocytosis 1+, Macrocytic Cells 2+ 06/23/18 0230: Urinalysis MOD H, Urine Color YEL, Urine Clarity HAZY H, Urine pH 6.5, Ur Specific [place] <= 1.005, Urine Protein NEG, Urine Ketones NEG, Urine Nitrite NEG, Urine Bilirubin NEG, Urine Urobilinogen 0.2, Ur Leukocyte Esterase LARGE H , Ur Microscopic SEDIMENT EXAMINED, Urine RBC 5-10 H, Urine WBC 15-25 H, Ur Epithelial Cells MOD H, Urine Bacteria MOD H, Micro UA Comment , Urine Hemoglobin SMALL H, Urine Glucose NEG 06/23/18 0030: Lactic Acid 1.1, Troponin I 0.19 *H 06/22/181999: Bicarbonate Actual 26, Mixed VBG pH 7.34, Mixed VBG pCO2 50, Mixed VBG O2 Saturation 29 L, Carboxyhemoglobin 1.4 L, O2 Concentration % 3LPM, O2 Delivery Method NC, Phlebotomy Draw Site VENOUS 06/22/18 1830: Anion Gap 7, Estimated GFR > 60, BUN/Creatinine Ratio 21.4, Glucose 112 H, Lactic Acid 0.9, Calcium 8.4, Total Bilirubin 1.1, AST 53 H, ALT 48, Alkaline Phosphatase 99, Troponin I 0.22 *H, Total Protein 6.7, Albumin 3.3 L, Globulin 3.4, Albumin/Globulin Ratio 1.0 L, Lipase 42, CBC w Diff MAN DIFF ORDERED, RBC 2.48 L, MCV 105.1 H, MCH 35.5 H, MCHC 33.8, RDW 24.8 H, MPV 9.2, Gran % 76.1 H, Lymphocytes % 18.5 L, Monocytes % 5.3, Eosinophils % 0, Basophils % 0.1, Absolute Granulocytes 1.6, Segmented Neutrophils 53, Band Neutrophils 18 H, Absolute Lymphocytes 0.4 L, Lymphocytes 25, Monocytes 4, Absolute Monocytes 0.1 , Absolute Eosinophils 0, Absolute Basophils 0, Platelet Estimate DECREASED, Polychromasia 1+, Anisocytosis 1+, Macrocytic Cells 1+ Microbiology 06/23 230 URINE ROUT: Legionella Antigen - COMP 06/23 230 URINE ROUT: Streptococcus pneumoniae Antigen (M - COMP Assessment/Plan Assessment/Plan In summary this 72-year-old female has a following problems 1. Pneumonia 2. Minimal troponin elevation likely due to demand ischemia 3. Pancytopenia with history of myelodysplastic syndrome 4. Rectal cancer status post neoadjuvant chemotherapy 5. COPD 6. Hypertension 7. Paroxysmal atrial fibrillation flutter. Recurrent ounces of atrial fibrillation might be related to pain stimulus. She would have to be considered for anticoagulation. I discussed this with her and she is not willing to accept this at the moment. Also need to discuss with hematology. I would add metoprolol tartrate 25 mg every 8 hours and after a day or 2 transition to 50 mg p.o. twice daily. Continue telemetry? Yes
[2018-06-24 10:27] LABS: PLATELET COUNT 67 /CUMM (130-400)
--- NOTE | 2018-06-24 11:33 | Cons- Pulmonary ---
General Information and HPI Consulting Request Date of Consult: 06/24/18 Requested By: Dr. 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 She was recently hospitalized from 06/06 to 06/11 for anemia shortness of breath. The patient reports she was feeling more short of breath since her recent discharge. She has become extremely fatigued and weak. She also has had some difficulty swallowing. She has a congested cough. She also has wheezing and chills. On presentation to the emergency room the patient was afebrile and normotensive. She had white blood cell count of 2100 with 18% bands. Her hemoglobin was 8.8. Chest x-ray demonstrated a dense left lower lobe consolidation. The patient was pancultured and started on vancomycin and ceftazidime. Overnight, the patient has had progressively worsening hypoxemic respiratory failure. She was changed from nasal cannula to high flow oxygen and and she is now on 90% with saturations in the low to mid 90s. The patient has increased respiratory distress noting she is unable to complete sentences in fall. She also has use of accessory muscles during the interview. Allergies/Medications Allergies: Coded Allergies: aspirin (Intermediate, GI UPSET 06/22/18) gluten (Mild, GI UPSET 06/22/18) lactase (From DAIRY AID) (Mild, LACTOSE INTOLERANT 06/22/18) Home Med List: Albuterol Sulfate (Proair Hfa) 90 MCG HFA.AER.AD 2 PUF INH Q6H PRN RESPIRATORY (Reported) Budesonide/Formoterol Fumarate (Symbicort 160-4.5 Mcg Inhaler) 160 MCG-4.5 MCG/ ACTUATION HFA.AER.AD 2 PUF INH BID RESPIRATORY (Reported) Clopidogrel Bisulfate (Plavix) 75 MG TABLET 75 MG PO DAILY HEART . Hydromorphone HCl 4 MG TABLET 1 TAB PO Q4 PRN PAIN (Reported) Ipratropium/Albuterol Sulfate (Combivent Respimat Inhal [place]) 20 MCG-100 MCG/ ACTUATION MIST.INHAL 1 PUFF INH 4XDAILY RESP. (Reported) Oxycodone HCl (Oxycontin) 20 MG TAB.ER.12H 1 TAB PO Q12H PAIN (Reported) Zolpidem Tartrate (Ambien) 5 MG TABLET 1 TAB PO QHS PRN PAIN (Reported) Current Medications: Current Medications Sig/Dontae Start time Last Medication Dose Route Stop Time Status Admin Acetaminophen 650 MG ONCE ONE 06/23 2330 DC 06/23 PO 06/23 2331 2340 Acetaminophen 0 .STK-MED ONE 06/23 1131 DC IV Acetaminophen 1,000 MG Q6P PRN 06/22 2230 AC 06/23 IV 1115 Albuterol Sulfate 3 ML TID 06/23 2100 AC 06/24 INH 0747 Azithromycin 500 MG Q24H 06/23 1419 AC 06/23 Sodium Chloride 250 ML IV 1500 Budesonide/ 2 PUF BID 06/23 0900 AC 06/24 Formoterol Fumarate INH 0857 Ceftazidime 1,000 MG Q12 06/23 0900 DC 06/23 IV 0830 Ceftazidime 0 .STK-MED ONE 06/23 0803 CAN .ROUTE Ceftriaxone Sodium 0 .STK-MED ONE 06/23 1454 DC .ROUTE Ceftriaxone Sodium 1,000 MG Q24H 06/23 1420 AC 06/23 IV 1500 Clopidogrel Bisulfate 75 MG DAILY 06/23 0900 AC 06/24 PO 0857 Hydromorphone HCl 2 MG ONCE ONE 06/24 0500 DC 06/24 PO 06/24 0501 0506 Hydromorphone HCl 2 MG ONCE ONE 06/23 2245 DC 06/23 PO 06/23 2246 2312 Hydromorphone HCl 0 .STK-MED ONE 06/23 1204 DC .ROUTE Hydromorphone HCl 1 MG Q4 HRS NEEDED PRN 06/22 2230 AC 06/24 IV 0826 Metoprolol Tartrate 25 MG Q8 06/24 1400 AC PO Ondansetron HCl 4 MG .STK-MED ONE 06/23 1727 DC IM 06/23 1728 Ondansetron HCl 4 MG Q6P PRN 06/22 2230 AC 06/24 IV 0854 Oxycodone HCl 20 MG Q12H 06/22 2300 AC 06/24 PO 1043 Sodium Chloride 1 SPRAY DAILY NEEDED PRN 06/23 2045 AC 06/23 CHARLENE 2319 Sodium Chloride 1,000 ML Q13H 06/22 2230 DC 06/23 IV 1253 Vancomycin HCl 1,500 MG DAILY 06/23 2100 CAN Sodium Chloride 250 ML IV Zolpidem Tartrate 5 MG QPM PRN 06/22 2300 AC 06/23 PO 0050 Review of Systems Review of Systems Constitutional: Reports: malaise, weakness. Denies: chills, diaphoresis, fever. EENTM: Denies: no symptoms. Cardiovascular: Reports: edema, orthopena, palpitations, peripheral edema. Denies: chest pain, syncope. Respiratory: Reports: cough, orthopnea, short of breath, wheezing. Denies: hemoptysis, sputum production, stridor. GI: Denies: abdominal pain, bloating, constipation, diarrhea. Genitourinary: Denies: dysuria, frequency. 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 spouse Services at Home: None Smoking Status: Former Smoker ETOH Use: denies use Illicit Drug Use: denies illicit drug use Functional Ability ADLs Independent: dressing, eating, toileting, bathing. Ambulation: independent IADLs Independent: shopping, housework, finances, food prep, telephone, transportation , medication admin. Exam & Diagnostic Data Last 24 Hrs of Vital Signs/I&O Vital Signs Date Time Temp Pulse Resp B/P B/P Pulse O2 O2 Flow FiO2 Mean Ox Delivery Rate 06/24 1015 96 Nasal 85% Cannula 06/24 0800 Nasal 8L Cannula 06/24 0456 89 Nasal 6.0L Cannula 06/24 0038 92 Nasal 6.0L Cannula 06/24 0000 92 Nasal 6.0L Cannula 06/24 0000 98.5 85 22 146/68 88 Nasal 6.0L Cannula 06/23 2007 Nasal 6.0L Cannula 06/23 1826 94 Nasal 6.0L Cannula 06/23 1803 93 Nasal 6.0L Cannula 06/23 1517 97.5 112 20 154/55 94 Nasal 6.0L Cannula 06/23 1408 97.5 Intake & Output 06/24 1600 06/24 0800 06/24 0000 Intake Total 220 690 Output Total 2 Balance 220 688 Intake, IV 250 Intake, Oral 220 440 Output, Stool 2 Patient 243 lb Weight Physical Exam General Appearance: awake, anxious, moderate distress Head: atraumatic, normal appearance Eyes: Bilateral: PERRL. Neck: supple Respiratory: accessory muscle use, crackles, rhonchi, wheezing, respiratory distress Cardiovascular: S1 and S2, heart sounds distant Gastrointestinal: normal bowel sounds, soft, non-tender Extremities: trace edema Skin: intact, normal color, warm/dry Last 48 Hrs of Labs/Dar: Laboratory Tests 06/24/18 0835: CBC w Diff MAN DIFF ORDERED, RBC 2.53 L, MCV 105.3 H, MCH 35.0 H, MCHC 33.3, RDW 25.1 H, MPV 8.6, Gran % 48.3, Lymphocytes % 46.0, Monocytes % 5.5, Eosinophils % 0.2, Basophils % 0, Absolute Granulocytes 1.0 L, Segmented Neutrophils 52, Band Neutrophils 7 H, Absolute Lymphocytes 1.0 L, Lymphocytes 36, Monocytes 5, Absolute Monocytes 0.1, Absolute Eosinophils 0, Absolute Basophils 0, Polychromasia 1+, Hypochromic-Microcytic 1+, Poikilocytosis 2+, Anisocytosis 2+, Macrocytic Cells 2+ 06/23/18 0600: CBC w Diff Cancelled, WBC Cancelled, RBC Cancelled, Hgb Cancelled, Hct Cancelled , MCV Cancelled, MCH Cancelled, MCHC Cancelled, RDW Cancelled, Plt Count Cancelled, MPV Cancelled 06/23/18 0510: Troponin I 0.12 *H 06/23/18 0510: Anion Gap 9, Estimated GFR > 60, BUN/Creatinine Ratio 20.0, Magnesium 2.2, CBC w Diff MAN DIFF ORDERED, RBC 2.46 L, MCV 105.8 H, MCH 36.0 H, MCHC 34.0, RDW 24.4 H, MPV 8.6, Gran % 74.5, Lymphocytes % 18.1 L, Monocytes % 7.4, Eosinophils % 0, Basophils % 0, Absolute Granulocytes 1.3 L, Segmented Neutrophils 52, Band Neutrophils 31 H, Absolute Lymphocytes 0.3 L, Lymphocytes 14 L, Monocytes 1 L, Absolute Monocytes 0.1, Absolute Eosinophils 0, Basophils 1, Absolute Basophils 0, Metamyelocytes 1, Platelet Estimate DECREASED, Anisocytosis 1+, Macrocytic Cells 2+ 06/23/18 0230: Urinalysis MOD H, Urine Color YEL, Urine Clarity HAZY H, Urine pH 6.5, Ur Specific [place] <= 1.005, Urine Protein NEG, Urine Ketones NEG, Urine Nitrite NEG, Urine Bilirubin NEG, Urine Urobilinogen 0.2, Ur Leukocyte Esterase LARGE H , Ur Microscopic SEDIMENT EXAMINED, Urine RBC 5-10 H, Urine WBC 15-25 H, Ur Epithelial Cells MOD H, Urine Bacteria MOD H, Micro UA Comment , Urine Hemoglobin SMALL H, Urine Glucose NEG 06/23/18 0030: Lactic Acid 1.1, Troponin I 0.19 *H 06/22/181999: Bicarbonate Actual 26, Mixed VBG pH 7.34, Mixed VBG pCO2 50, Mixed VBG O2 Saturation 29 L, Carboxyhemoglobin 1.4 L, O2 Concentration % 3LPM, O2 Delivery Method NC, Phlebotomy Draw Site VENOUS 06/22/18 1830: Anion Gap 7, Estimated GFR > 60, BUN/Creatinine Ratio 21.4, Glucose 112 H, Lactic Acid 0.9, Calcium 8.4, Total Bilirubin 1.1, AST 53 H, ALT 48, Alkaline Phosphatase 99, Troponin I 0.22 *H, Total Protein 6.7, Albumin 3.3 L, Globulin 3.4, Albumin/Globulin Ratio 1.0 L, Lipase 42, CBC w Diff MAN DIFF ORDERED, RBC 2.48 L, MCV 105.1 H, MCH 35.5 H, MCHC 33.8, RDW 24.8 H, MPV 9.2, Gran % 76.1 H, Lymphocytes % 18.5 L, Monocytes % 5.3, Eosinophils % 0, Basophils % 0.1, Absolute Granulocytes 1.6, Segmented Neutrophils 53, Band Neutrophils 18 H, Absolute Lymphocytes 0.4 L, Lymphocytes 25, Monocytes 4, Absolute Monocytes 0.1 , Absolute Eosinophils 0, Absolute Basophils 0, Platelet Estimate DECREASED, Polychromasia 1+, Anisocytosis 1+, Macrocytic Cells 1+ Microbiology 06/23 230 URINE ROUT: Legionella Antigen - COMP 06/23 230 URINE ROUT: Streptococcus pneumoniae Antigen (M - COMP Assessment/Plan Impression/Plan: 1. Left lower lobe pneumonia, with sepsis. 2. Acute hypoxemic respiratory failure secondary to pneumonia. The patient has increased respiratory distress with use of accessory muscles and evidence of fatigue. 3. History of COPD, intermittently oxygen dependent, with evidence of mild bronchospasm. 4. Pancytopenia. 5. Myelodysplastic syndrome. 6. Previous rectal cancer status post multiple surgical interventions and neoadjuvant chemoradiation. 7. Recent blood loss anemia. 8. Atrial flutter/fibrillation with spontaneous conversion. 9. Mildly elevated troponin secondary to demand ischemia. 10. History of hypertension. Recommendations: * Transfer to the critical care unit for closer monitoring. * Start BiPAP 14/, respiratory rate of 20. * Alternate between BiPAP and high flow for patient comfort. * Keep oxygen for saturations greater than 92%. * Frequent nebulizer treatments, every 4 hours [id number]. * Start Spiriva 1 inhalation daily. * Continue Symbicort 2 puffs every 12 hours per. * Follow-up cultures. * Continue vancomycin and ceftazidime. * ID consult to be requested. * Appreciate oncology's recommendations * We will continue with rate control and follow-up cardiology's recommendations. * I discussed the plan of care with the primary team. They are currently making arrangements to transfer the patient to the critical care unit. Additionally, I discussed the plan of care with the patient and her /family at the bedside. We will monitor the patient closely and provide further recommendations as necessary. Consult Acknowledgment - Thank you for your consult request.
[2018-06-24 12:00] VITALS: BP 150/70
--- NOTE | 2018-06-24 12:09 | Transfer of Care Summary ---
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 In the ED vital signs were significant for mildly elevated systolic blood pressure ranging 143-150 and SPO2 ranging 94-95% on 3-6 L O2 via nasal cannula. Physical examination on admission an ill-appearing elderly woman, NAD, Scattered rhonchi with diminished left lower lobe airflow and associated crackles. 1-2 nonpitting bilateral lower extremity edema, normal pulses, capillary refill <2 seconds. Significant labs WBC/bands 2.1/18, H/H8 0.8/26.1, platelet 70, lactic acid 0.9, and troponin I 0.22. EKG demonstrated an incomplete right bundle branch block with nonspecific ST T-wave changes. Chest x-ray demonstrated a dense left lower lobe consolidation. Hospital course: #Sepsis secondary to LLL pneumonia: * In the ED the patient appeared to have hospital-acquired pneumonia because of her recent discharge on June 10 and immunocompromised state. She was started on vancomycin and ceftazidime, given immunocompromised state and recent hospital admission. Patient met sepsis criteria with leukopenia/bandemia and tachypnea with evidence of pneumonia. * On assessment and evaluation patient appeared to have a left lower lobe community-acquired pneumonia. She is on day 2 of ceftriaxone and azithromycin. * Swallow eval was done to look for any possible aspiration leading to the PNA * We requested blood and sputum cultures, & urinary antigens. Urinary antigens for S pneumo & legionella came back negative. #COPD Exacerbation/Acute hypoxemic respiratory failure: * patient has a past medical history of COPD. * Patient used 2 L oxygen intermittently especially while ambulating at home. * In the ED she was started on 6 L oxygen. * This morning she was put on 7 L high flow oxygen 90% and she was still in respiratory distress. #Type 2 myocardial infarction: * on admission the troponins were 0.22 which were trended. Came down to 0.19 and then 0.12. * Looks like type II DC from pneumonia and sepsis. * Jeanine plavix if cleared from Hem/onc. * Outpt testing for Cardiac ischemia can be considered #New onset A. fib with RVR: * Patient's heart rate was found to be in the 150s. She has no history of atrial fibrillation. * Started on metoprolol 25 q. 8. * Anticoagulation will be considered after consulting heme on/cardiology. Hem/ Onc recs that there is no harm in starting anticoagulation if platelets are more than 50,000. #Myelodysplastic syndrome: * We have held lenalidomide #Pancytopenia: * we will transfuse with pRBCs if hemoglobin is less than 8. * transfuse with platelet if <10,000, <20,000 with fever, or <50,000 with bleeding Today, pt was transferred to ICU for better respiratory care as pt's condition was deteriorating: She was on high flow O2, dyspneic, fatigued and irritable. Assessment/Plan: Patient is transferred to the ICU for higher respiratory care(continuous BiPAP)
--- NOTE | 2018-06-24 12:45 | CT SCAN REPORT ---
EXAMINATION: CT CHEST WITHOUT CONTRAST CLINICAL INFORMATION: Pneumonia COMPARISON: Chest radiograph 06/22/2018 TECHNIQUE: Multidetector volumetric CT imaging of the chest was done. Axial MIP volume rendering provided. Sagittal and coronal reformatted images were obtained. DLP: 452.95 mGy-cm FINDINGS: DIRECTOR LABOR STANDARDS: Consolidation of the left upper lobe. Small left pleural effusion. Atherosclerotic calcifications. LUNGS: There is a background of moderately severe centrilobular emphysematous changes. Dense consolidation involving the posterior segment of the left upper lobe with interstitial thickening and ground-glass opacities bleeding into the anterior segment. There is a small left pleural effusion with adjacent atelectasis of the posterior left lower lobe. Dependent consolidation of the right lower lobe at the base. Few scattered calcified granulomas. Minimal consolidation within the medial right middle lobe is most likely on the basis of subsegmental atelectasis or scarring. Respiratory motion and centrilobular emphysematous changes limit evaluation for subtle pulmonary findings. There is a stable 0.9 cm oval density along the right minor fissure that is not significantly changed since 2007 and consistent with a fissural lymph node. MEDIASTINUM: Heart size is normal. No pericardial effusion. Prominent but nonpathologically enlarged aorticopulmonary lymph node measuring 0.9 cm. No bulky mediastinal or hilar lymphadenopathy. Atherosclerosis thoracic aorta. Limited views of the thyroid are unremarkable. Trachea is midline and central airways are patent. PLEURA: Small left pleural effusion. Trace right pleural effusion. AXILLA: No lymphadenopathy. UPPER ABDOMEN: Unremarkable. OSSEOUS STRUCTURES: Degenerative changes of the spine. No acute or suspicious osseous abnormality. IMPRESSION: 1. Dense consolidation of the left upper lobe with air bronchograms consistent with pneumonia as provided in the clinical history. Consolidation of the left lower lobe adjacent to the pleural effusion may simply be due to compressive atelectasis although a superimposed infection in this area is not excluded. The consolidation of the right lung base is likely due to dependent change. Attention to all these regions on follow up imaging after the patient has recovered is recommended to exclude an underlying infectious process. 2. Other chronic, nonacute findings as above.
--- NOTE | 2018-06-24 14:30 | Cons- Infect Disease ---
General Information and HPI Consulting Request Date of Consult: 06/24/18 Requested By: Benson Lock MD Reason for Consult: Left upper lobe pneumonia Source of Information: patient, family, old records History of Present Illness: This is a 72-year-old woman with a history of hypertension, COPD, on 2 L of oxygen at home, colorectal cancer, treated with neoadjuvant chemoradiation followed by resection and a diverting loop ileostomy, with subsequent reversal but with 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 On admission she was afebrile with an O2 sat of 94% on 3 L. Laboratory data revealed a white blood cell count of 2.1, with 18 bands, H&H 8.8 and 26, platelets 70,000, BUN/creatinine 15 and 0.7, AST ALT 53 and 48, troponin 0.22. Urinalysis 5-10 RBC/15-25 WBCs. Chest x-ray revealed dense consolidation of the left lung base. She was given Vancomycin and Ceftazidime and 1 dose of Solumedrol. On June 23 she was changed to Ceftriaxone and Azithromycin. Overnight she developed an episode of atrial flutter, with spontaneous conversion. This morning she was noted to be more dyspneic and was moved to the ICU. She did report an episode of hemoptysis. She has remained afebrile since admission. Allergies/Medications Allergies: Coded Allergies: aspirin (Intermediate, GI UPSET 06/22/18) gluten (Mild, GI UPSET 06/22/18) lactase (From DAIRY AID) (Mild, LACTOSE INTOLERANT 06/22/18) Home Med List: Albuterol Sulfate (Proair Hfa) 90 MCG HFA.AER.AD 2 PUF INH Q6H PRN RESPIRATORY (Reported) Budesonide/Formoterol Fumarate (Symbicort 160-4.5 Mcg Inhaler) 160 MCG-4.5 MCG/ ACTUATION HFA.AER.AD 2 PUF INH BID RESPIRATORY (Reported) Clopidogrel Bisulfate (Plavix) 75 MG TABLET 75 MG PO DAILY HEART . Hydromorphone HCl 4 MG TABLET 1 TAB PO Q4 PRN PAIN (Reported) Ipratropium/Albuterol Sulfate (Combivent Respimat Inhal [place]) 20 MCG-100 MCG/ ACTUATION MIST.INHAL 1 PUFF INH 4XDAILY RESP. (Reported) Oxycodone HCl (Oxycontin) 20 MG TAB.ER.12H 1 TAB PO Q12H PAIN (Reported) Zolpidem Tartrate (Ambien) 5 MG TABLET 1 TAB PO QHS PRN PAIN (Reported) Past History Travel History Traveled to [place] past 21 day No Medical History Neurological: NONE EENT: allergies Cardiovascular: hypertension Respiratory: pneumonia, ASTHMA, COPD Gastrointestinal: GERD, COLORECTAL CA Hepatic: NONE Renal: NONE Musculoskeletal: osteoarthritis, BACK, BONE CA Psychiatric: NONE Endocrine: NONE Blood Disorders: pancytopenia, MDS Cancer(s): rectal ca [employer]/Reproductive: NONE Other Medical Hx: rectal CA, presacral abscess, colovaginal fistula History of MRSA: No History of VRE: No History of CDIFF: No Isolation History: Standard Surgical History Surgical History: hernia repair-ventral, lower anterior resection with diverting ileostomy 2006 reversal in 2006 with repeat diverting ileostomy 2016, tonsillectomy Psychosocial History Who Do You Live With? spouse Services at Home: None Smoking Status: Former Smoker ETOH Use: denies use Illicit Drug Use: denies illicit drug use Functional Ability ADLs Independent: dressing, eating, toileting, bathing. Ambulation: independent IADLs Independent: shopping, housework, finances, food prep, telephone, transportation , medication admin. Review of Systems Review of Systems All Other Systems: Reviewed and Negative Exam & Diagnostic Data Last 24 Hrs of Vital Signs/I&O Vital Signs Date Time Temp Pulse Resp B/P B/P Pulse O2 O2 Flow FiO2 Mean Ox Delivery Rate 06/24 1339 110 95 06/24 1310 88 95 06/24 1015 96 Nasal 85% Cannula 06/24 0800 Nasal 8L Cannula 06/24 0456 89 Nasal 6.0L Cannula 06/24 0038 92 Nasal 6.0L Cannula 06/24 0000 92 Nasal 6.0L Cannula 06/24 0000 98.5 85 22 146/68 88 Nasal 6.0L Cannula 06/23 2007 Nasal 6.0L Cannula 06/23 1826 94 Nasal 6.0L Cannula 06/23 1803 93 Nasal 6.0L Cannula 06/23 1517 97.5 112 20 154/55 94 Nasal 6.0L Cannula Intake & Output 06/24 1600 06/24 0800 06/24 0000 Intake Total 220 690 Output Total 2 Balance 220 688 Intake, IV 250 Intake, Oral 220 440 Output, Stool 2 Patient 243 lb Weight Physical Exam Other Physical Findings: She is awake and alert in no acute distress, on high flow oxygen. She is afebrile. Skin reveals scattered ecchymoses on her upper extremities. HEENT exam is negative. Neck is supple with no adenopathy. Lungs bibasilar crackles. Heart regular rhythm with no murmur. Abdomen is obese, soft, nontender with positive bowel sounds; ileostomy in the right lower quadrant with stool. Back no CVA tenderness. Extremities no cyanosis, clubbing or edema. Neuro is without focality. Last 24 Hours of Lab Results: Laboratory Tests 06/24 0835 Hematology CBC w Diff MAN DIFF ORDERED WBC (4.8 - 10.8 /CUMM) 2.1 L RBC (4.20 - 5.40 /CUMM) 2.53 L Hgb (12.0 - 16.0 G/DL) 8.9 L Hct (37 - 47 %) 26.6 L MCV (81.0 - 99.0 FL) 105.3 H MCH (27.0 - 31.0 PG) 35.0 H MCHC (33.0 - 37.0 G/DL) 33.3 RDW (11.5 - 14.5 %) 25.1 H Plt Count (130 - 400 /CUMM) 67 L MPV (7.4 - 10.4 FL) 8.6 Gran % (42.2 - 75.2 %) 48.3 Lymphocytes % (20.5 - 51.1 %) 46.0 Monocytes % (1.7 - 9.3 %) 5.5 Eosinophils % (0 - 5 %) 0.2 Basophils % (0.0 - 2.0 %) 0 Absolute Granulocytes (1.4 - 6.5 /CUMM) 1.0 L Segmented Neutrophils (42.2 - 75.2 %) 52 Band Neutrophils (0.0 - 5.0 %) 7 H Absolute Lymphocytes (1.2 - 3.4 /CUMM) 1.0 L Lymphocytes (20.5 - 51.1 %) 36 Monocytes (1.7 - 9.3 %) 5 Absolute Monocytes (0.10 - 0.60 /CUMM) 0.1 Absolute Eosinophils (0.0 - 0.7 /CUMM) 0 Absolute Basophils (0.0 - 0.2 /CUMM) 0 Polychromasia 1+ Hypochromic-Microcytic 1+ Poikilocytosis 2+ Anisocytosis 2+ Macrocytic Cells 2+ Last 24 Hours of Dar Results: Blood cultures x 2 June 22 negative Urine strep pneumo antigen and Legionella antigen June 23 negative Diagnostic Data Recent Imaging Findings: Chest x-ray June 22 dense consolidation of the left lung base CTA of the chest June 24 reveals dense consolidation of the left upper lobe with air bronchograms, with a small left pleural effusion and a trace right pleural effusion Assessment/Plan Assessment/Plan Impression: This is a 72-year-old woman with a history of COPD, on 2 L of oxygen at home, and myelodysplastic syndrome, diagnosed over 6 months prior to admission, treated with Revlimid until recently, last hospitalized 2 weeks prior to admission with anemia and shortness of breath, requiring 2 units of blood, readmitted on June 22 with a two-day history of low-grade fevers, chills, sweats , nausea with dry heaves, weakness, headaches, body aches and increasing shortness of breath, found to be afebrile with pancytopenia and with imaging revealing dense consolidation in the left lung. Her clinical picture is consistent with pneumonia, with the CT revealing left upper lobe consolidation. She was recently hospitalized, raising concern for a healthcare associated pneumonia, though she was only in the hospital for 4 days and did not receive any antibiotics. She is borderline neutropenic, however, increasing concern for organisms including Pseudomonas and Staph aureus; therefore it may be reasonable to maintain broad-spectrum coverage for these organisms pending further evaluation. Suggestion: 1. Attempt to obtain a sputum for culture 2. Follow-up nares surveillance culture for MRSA 3. Continue Vancomycin and Ceftazidime pending above Consult Acknowledgment - Thank you for your consult request.
[2018-06-24 16:00] VITALS: BP 130/70
[2018-06-24 23:00] VITALS: BP 120/70
[2018-06-25 06:31] LABS: ABSOLUTE BASOPHIL COUNT 0 /CUMM (0.0-0.2); ABSOLUTE EOSINOPHIL COUNT 0 /CUMM (0.0-0.7); ABSOLUTE GRANULOCYTE CT 1.4 /CUMM (1.4-6.5); ABSOLUTE LYMPH COUNT 0.6 /CUMM (1.2-3.4); ABSOLUTE MONOCYTE COUNT 0.1 /CUMM (0.10-0.60); BASOPHIL % 0.1 % (0.0-2.0); EOSINOPHIL % 1.4 % (0-5); HEMATOCRIT 25.6 % (37-47); MEAN CORPUSCULAR HGB 34.9 PG (27.0-31.0); MEAN CORPUSCULAR HGB CONC 33.3 G/DL (33.0-37.0); MEAN PLATELET VOLUME 9.2 FL (7.4-10.4); PLATELET COUNT 74 /CUMM (130-400); RBC DISTRIBUTION WIDTH 24.1 % (11.5-14.5); RED BLOOD CELL CT 2.44 /CUMM (4.20-5.40); WHITE BLOOD CELL COUNT 2.1 /CUMM (4.8-10.8)
--- NOTE | 2018-06-25 07:42 | PN- Hematology ---
Subjective Subjective: Feeling somewhat less short of breath today Review of Systems: 12 point review of systems otherwise unchanged Objective Vital Signs and I&Os Vital Signs Date Time Temp Pulse Resp B/P B/P Pulse O2 O2 Flow FiO2 Mean Ox Delivery Rate 06/25 0620 71 21 148/79 06/25 0400 98 Nasal 70% Cannula 06/25 0155 97 Nasal 70% Cannula 06/25 0153 97 06/25 0000 99 Nasal 70% Cannula 06/24 2300 96.9 68 13 120/70 96 Nasal 70% Cannula 06/24 2046 87 13 135/56 06/24 2000 94 Nasal 70% Cannula 06/24 1946 98 Nasal 75% Cannula 06/24 1936 97.2 06/24 1837 99.0 06/24 1647 99 Nasal 80% Cannula 06/24 1600 98 Nasal 80% Cannula 06/24 1600 97.9 96 96 130/70 98 Nasal 80% Cannula 06/24 1408 110 110/87 06/24 1339 110 95 06/24 1310 88 95 06/24 1200 94 Nasal 80% Cannula 06/24 1200 98.2 77 22 150/70 92 BIPAP 06/24 1015 96 Nasal 85% Cannula 06/24 0800 Nasal 8L Cannula Intake & Output 06/25 0800 06/25 0000 06/24 1600 06/24 0800 06/24 0000 06/23 1600 Intake Total 120 120 220 220 690 Output Total 700 400 350 2 Balance -580 -280 -130 220 688 Intake, IV 20 250 Intake, Oral 120 120 200 220 440 Output, Stool 200 200 150 2 Output, Urine 500 200 200 Patient 247 lb 243 lb 235 lb Weight Weight Bed scale Measurement Method Gen.: in NAD ENT: Sclera anicteric Chest: Decreased breath sounds Cor: RRR, no extra sounds Abdomen: Soft, bowel sounds present, no tenderness, no rebound Extremities: Without clubbing, cyanosis, or asymmetric edema Neurology: Alert and oriented 3, no gross deficit Current Medications: Current Medications Sig/Dontae Start time Last Medication Dose Route Stop Time Status Admin Acetaminophen 1,000 MG Q6P PRN 06/22 2230 AC 06/24 IV 1837 Albuterol Sulfate 3 ML TID 06/23 2100 AC 06/24 INH 1941 Azithromycin 500 MG Q24H 06/23 1419 DC 06/23 Sodium Chloride 250 ML IV 1500 Budesonide/ 2 PUF BID 06/23 0900 AC 06/24 Formoterol Fumarate INH 2124 Calcium Carbonate 500 MG BID PRN 06/25 0700 AC PO Ceftazidime 1,000 MG Q8 06/24 1400 06/25 IV 0620 Ceftazidime 1,000 MG Q12 06/24 1215 DC IV Ceftriaxone Sodium 1,000 MG Q24H 06/23 1420 [place] 06/23 IV 1500 Clopidogrel Bisulfate 75 MG DAILY 06/23 0900 06/24 PO 0857 Hydromorphone HCl 1 MG Q4 HRS NEEDED PRN 06/22 2230 06/25 IV 0521 Metoprolol Tartrate 25 MG Q8 06/24 1400 06/25 PO 0620 Ondansetron HCl 4 MG .STK-MED ONE 06/24 1533 WY IM 06/24 1534 Ondansetron HCl 4 MG .STK-MED ONE 06/24 0851 WY IM 06/24 0852 Ondansetron HCl 4 MG Q6P PRN 06/22 2230 06/24 IV 1536 Oxycodone HCl 20 MG Q12H 06/22 2300 06/24 PO 2309 Sodium Chloride 1 SPRAY DAILY NEEDED PRN 06/23 2045 06/25 CHARLENE 0620 Sodium Chloride 1,000 ML Q13H 06/22 2230 [place] 06/23 IV 1253 Vancomycin HCl 1,500 MG DAILY 06/25 09 AC Sodium Chloride 250 ML IV Zolpidem Tartrate 5 MG QPM PRN 06/22 2300 06/25 PO 0000 Results Recent Imaging Studies: CBC today pending Assessment/Plan Hematology Assessment/Recommendations: 1. Myelodysplasia-counts have remained stable, patient has borderline neutropenia Recommend- Follow CBC Transfuse as outlined 2. Respiratory failure-being treated for pneumonia
[2018-06-25 08:00] VITALS: BP 120/50; BP 130/60
--- NOTE | 2018-06-25 08:23 | PN- CRCU ---
Subjective HPI/Critical Care Issues: The patient is awake and alert. She appears less distressed today. She has an ongoing cough and has difficulty expectorating. She is on high flow oxygen however her O2 requirement has significantly improved. She is afebrile. Objective Current Medications: Current Medications Sig/Dontae Start time Last Medication Dose Route Stop Time Status Admin Acetaminophen 1,000 MG Q6P PRN 06/22 2230 AC 06/24 IV 1837 Albuterol Sulfate 3 ML TID 06/23 2100 AC 06/24 INH 1941 Azithromycin 500 MG Q24H 06/23 1419 DC 06/23 Sodium Chloride 250 ML IV 1500 Budesonide/ 2 PUF BID 06/23 0900 AC 06/24 Formoterol Fumarate INH 2124 Calcium Carbonate 500 MG BID PRN 06/25 0700 AC PO Ceftazidime 1,000 MG Q8 06/24 1400 AC 06/25 IV 0620 Ceftazidime 1,000 MG Q12 06/24 1215 DC IV Ceftriaxone Sodium 1,000 MG Q24H 06/23 1420 DC 06/23 IV 1500 Clopidogrel Bisulfate 75 MG DAILY 06/23 0900 06/24 PO 0857 Hydromorphone HCl 1 MG Q4 HRS NEEDED PRN 06/22 2230 AC 06/25 IV 0521 Metoprolol Tartrate 25 MG Q8 06/24 1400 06/25 PO 0620 Ondansetron HCl 4 MG .STK-MED ONE 06/24 1533 DC IM 06/24 1534 Ondansetron HCl 4 MG .STK-MED ONE 06/24 0851 DC IM 06/24 0852 Ondansetron HCl 4 MG Q6P PRN 06/22 2230 06/24 IV 1536 Oxycodone HCl 20 MG Q12H 06/22 2300 AC 06/24 PO 2309 Sodium Chloride 1 SPRAY DAILY NEEDED PRN 06/23 2045 AC 06/25 CHARLENE 0620 Sodium Chloride 1,000 ML Q13H 06/22 2230 [place] 06/23 IV 1253 Vancomycin HCl 1,500 MG DAILY 06/25 09 AC Sodium Chloride 250 ML IV Zolpidem Tartrate 5 MG QPM PRN 06/22 2300 06/25 PO 0000 Vital Signs & I&O Last 24 Hrs of Vitals and I&O: Vital Signs Date Time Temp Pulse Resp B/P B/P Pulse O2 O2 Flow FiO2 Mean Ox Delivery Rate 06/25 0620 71 21 148/79 06/25 0400 98 Nasal 70% Cannula 06/25 0155 97 Nasal 70% Cannula 06/25 0153 97 06/25 0000 99 Nasal 70% Cannula 06/24 2300 96.9 68 13 120/70 96 Nasal 70% Cannula 06/24 2046 87 13 135/56 06/24 2000 94 Nasal 70% Cannula 06/24 1946 98 Nasal 75% Cannula 06/24 1936 97.2 06/24 1837 99.0 06/24 1647 99 Nasal 80% Cannula 06/24 1600 98 Nasal 80% Cannula 06/24 1600 97.9 96 96 130/70 98 Nasal 80% Cannula 06/24 1408 110 110/87 06/24 1339 110 95 06/24 1310 88 95 06/24 1200 94 Nasal 80% Cannula 06/24 1200 98.2 77 22 150/70 92 BIPAP 06/24 1015 96 Nasal 85% Cannula Intake & Output 06/25 1600 06/25 0800 06/25 0000 Intake Total 120 120 Output Total 700 400 Balance -580 -280 Intake, Oral 120 120 Output, Stool 200 200 Output, Urine 500 200 Patient 247 lb Weight Weight Bed scale Measurement Method Exam General Appearance: alert, awake, mild distress Head: atraumatic, normal appearance Neck: normal inspection, supple Respiratory: chest non-tender, respiratory distress, scattered rhonchi b/l Cardiovascular: regular rate/rhythm Gastrointestinal: normal bowel sounds, soft, non-tender, no organomegaly, ileostomy noted Extremities: normal inspection, normal capillary refill Sepsis Peripheral Pulse Location: Dorsalis Pedis Sepsis Peripheral Pulse Exam: Normal Sepsis Cap Refill Exam: <2 Sec Results Last 24 Hrs of Lab Results: Laboratory Tests 06/25/18 0541: Anion Gap 8, Estimated GFR > 60, BUN/Creatinine Ratio 17.1, CBC w Diff NO MAN DIFF REQ, RBC 2.44 L, MCV 105.0 H, MCH 34.9 H, MCHC 33.3, RDW 24.1 H, MPV 9.2, Gran % 68.0, Lymphocytes % 26.6, Monocytes % 3.9, Eosinophils % 1.4, Basophils % 0.1, Absolute Granulocytes 1.4, Absolute Lymphocytes 0.6 L, Absolute Monocytes 0.1, Absolute Eosinophils 0, Absolute Basophils 0 06/24/18 0835: CBC w Diff MAN DIFF ORDERED, RBC 2.53 L, MCV 105.3 H, MCH 35.0 H, MCHC 33.3, RDW 25.1 H, MPV 8.6, Gran % 48.3, Lymphocytes % 46.0, Monocytes % 5.5, Eosinophils % 0.2, Basophils % 0, Absolute Granulocytes 1.0 L, Segmented Neutrophils 52, Band Neutrophils 7 H, Absolute Lymphocytes 1.0 L, Lymphocytes 36, Monocytes 5, Absolute Monocytes 0.1, Absolute Eosinophils 0, Absolute Basophils 0, Polychromasia 1+, Hypochromic-Microcytic 1+, Poikilocytosis 2+, Anisocytosis 2+, Macrocytic Cells 2+ Impression/Plan Impression/Plan Impression/Plan: 1. Left lower lobe pneumonia, with sepsis. 2. Acute hypoxemic respiratory failure secondary to pneumonia. The patient has increased respiratory distress with use of accessory muscles and evidence of fatigue. 3. History of COPD, intermittently oxygen dependent, with evidence of mild bronchospasm. 4. Pancytopenia. 5. Myelodysplastic syndrome. 6. Previous rectal cancer status post multiple surgical interventions and neoadjuvant chemoradiation. 7. Recent blood loss anemia. 8. Atrial flutter/fibrillation with spontaneous conversion. 9. Mildly elevated troponin secondary to demand ischemia. 10. History of hypertension. Recommendations: * Alternate between BiPAP and high flow for patient comfort. * Keep oxygen for saturations greater than 92%. * Frequent nebulizer treatments, every 4 hours [id number]. * Spiriva 1 inhalation daily. * Continue Symbicort 2 puffs every 12 hours per. * Follow-up cultures. * Continue Ceftriaxone and Azithro. * ID consult to be requested. * Appreciate all computer systems consultant's recommendations. * DVT prophylaxis at all times. * Patient's updated at the bedside.
--- NOTE | 2018-06-25 08:43 | PN- Resident CRCU ---
Subjective HPI/CRCU Issues: #Sepsis 2/2 LLL Pneumonia #Acute Hypoxemic Resp Failure in the setting of pneumonia and COPD E #MDS, pancytopenic #Troponin elevation, type II VT in the setting of sepsis #New Onset A-fib with RVR with spontaneous reversion #H/o Rectal Ca s/p neoadjuvant chemorad, surgical interventions #H/o HTN 24 Hour Events: Pt seen and examined this AM. She stating feeling weak and fatigued, though her breathing has improved as per pt. She is less SOB only c/o dry heaving. No other acute complains. She is currently on HFNC on 60% FiO2 with sat>92%. Objective Vital Signs & I&O Last 8 Hrs of Vitals and I&O: Laboratory Tests 06/25/18 0541: Anion Gap 8, Estimated GFR > 60, BUN/Creatinine Ratio 17.1, CBC w Diff NO MAN DIFF REQ, RBC 2.44 L, MCV 105.0 H, MCH 34.9 H, MCHC 33.3, RDW 24.1 H, MPV 9.2, Gran % 68.0, Lymphocytes % 26.6, Monocytes % 3.9, Eosinophils % 1.4, Basophils % 0.1, Absolute Granulocytes 1.4, Absolute Lymphocytes 0.6 L, Absolute Monocytes 0.1, Absolute Eosinophils 0, Absolute Basophils 0 Vital Signs Date Time Temp Pulse Resp B/P B/P Pulse O2 O2 Flow FiO2 Mean Ox Delivery Rate 06/25 1340 93 Nasal 60% Cannula 06/25 1338 89 120/54 06/25 1200 96 Nasal 55% Cannula 06/25 1200 98.1 72 20 120/70 96 Nasal 55% Cannula 06/25 0831 97 Nasal 60% Cannula 06/25 0800 98 Nasal 70% Cannula 06/25 0800 98.1 66 22 120/50 98 Nasal 70% Cannula 06/25 0620 71 21 148/79 06/25 0400 98 Nasal 70% Cannula 06/25 0155 97 Nasal 70% Cannula 06/25 0153 97 06/25 0000 99 Nasal 70% Cannula 06/24 2300 96.9 68 13 120/70 96 Nasal 70% Cannula 06/24 2046 87 13 135/56 06/24 2000 94 Nasal 70% Cannula 06/24 1946 98 Nasal 75% Cannula 06/24 1936 97.2 06/24 1837 99.0 06/24 1647 99 Nasal 80% Cannula 06/24 1600 98 Nasal 80% Cannula 06/24 1600 97.9 96 96 130/70 98 Nasal 80% Cannula Intake & Output 06/25 1600 06/25 0800 06/25 0000 Intake Total 862 120 120 Output Total 450 700 400 Balance 412 -580 -280 Intake, IV 262 Intake, Oral 600 120 120 Output, Stool 150 200 200 Output, Urine 300 500 200 Patient 246 lb 247 lb Weight Weight Bed scale Measurement Method Intake & Output 06/25 1600 Intake Total 862 Output Total 450 Balance 412 Intake, IV 262 Intake, Oral 600 Output, Stool 150 Output, Urine 300 Patient 246 lb Weight Exam General Appearance: alert, awake, mild distress Head: atraumatic, normal appearance Neck: normal inspection, supple Respiratory: chest non-tender, respiratory distress, scattered rhonchi b/l Cardiovascular: regular rate/rhythm Gastrointestinal: normal bowel sounds, soft, non-tender, no organomegaly, ileostomy noted Extremities: normal inspection, normal capillary refill Sepsis Peripheral Pulse Location: Dorsalis Pedis Sepsis Peripheral Pulse Exam: Normal Sepsis Cap Refill Exam: <2 Sec Current Medications: Current Medications Sig/Dontae Start time Last Medication Dose Route Stop Time Status Admin Acetaminophen 1,000 MG Q6P PRN 06/22 2230 AC 06/24 IV 1837 Albuterol Sulfate 3 ML TID 06/23 2100 AC 06/25 INH 1336 Azithromycin 500 MG DAILY 06/26 09 AC Sodium Chloride 250 ML IV Budesonide/ 2 PUF BID 06/23 0900 AC 06/25 Formoterol Fumarate INH 0832 Calcium Carbonate 500 MG BID PRN 06/25 0700 AC 06/25 PO 0916 Ceftazidime 1,000 MG Q8 06/24 1400 DC 06/25 IV 0620 Ceftriaxone Sodium 1,000 MG DAILY 06/26 09 AC IV Clopidogrel Bisulfate 75 MG DAILY 06/23 0900 AC 06/25 PO 0832 Hydromorphone HCl 1 MG Q4 HRS NEEDED PRN 06/22 2230 AC 06/25 IV 1130 Metoprolol Tartrate 50 MG BID 06/26 0900 AC PO Metoprolol Tartrate 25 MG Q8 06/24 1400 AC 06/25 PO 06/25 2300 1338 Omeprazole 20 MG ONCE ONE 06/25 1115 CAN PO 06/25 1116 Omeprazole 40 MG DAILY AC 06/25 1033 AC 06/25 PO 1124 Ondansetron HCl 4 MG Q6P PRN 06/25 1045 CAN IV Ondansetron HCl 4 MG .STK-MED ONE 06/24 1533 DC IM 06/24 1534 Ondansetron HCl 4 MG Q6P PRN 06/22 2230 AC 06/25 IV 0916 Oxycodone HCl 20 MG Q12H 06/22 2300 AC 06/25 PO 0926 Sodium Chloride 1 SPRAY DAILY NEEDED PRN 06/23 2045 AC 06/25 CHARLENE 0620 Vancomycin HCl 1,500 MG DAILY 06/25 0900 DC 06/25 Sodium Chloride 250 ML IV 0917 Zolpidem Tartrate 5 MG QPM PRN 06/22 2300 AC 06/25 PO 0000 CXR Findings: SERVICE DATE: 06/22 EXAM TYPE: RAD - XRY-PORTABLE CHEST XRAY EXAMINATION: XR PORTABLE CHEST CLINICAL INFORMATION: Shortness of breath. COMPARISON: Chest x-ray 11/27/2017 TECHNIQUE: Portable frontal view of the chest was obtained. 6:34 PM FINDINGS: Focal dense consolidation at the left lung base is new since the prior exam 11/27/2017. The right lung is clear. The heart size is enlarged. There are calcifications of aortic arch. There is no pulmonary vascular congestion. IMPRESSION: Dense consolidation left lung base. CT Scan Findings: SERVICE DATE: 06/24/ EXAM TYPE: CAT - CT CHEST WO IV CONTRAST EXAMINATION: CT CHEST WITHOUT CONTRAST CLINICAL INFORMATION: Pneumonia COMPARISON: Chest radiograph 06/22/2018 TECHNIQUE: Multidetector volumetric CT imaging of the chest was done. Axial MIP volume rendering provided. Sagittal and coronal reformatted images were obtained. DLP: 452.95 mGy-cm FINDINGS: [employer]: Consolidation of the left upper lobe. Small left pleural effusion. Atherosclerotic calcifications. LUNGS: There is a background of moderately severe centrilobular emphysematous changes. Dense consolidation involving the posterior segment of the left upper lobe with interstitial thickening and ground-glass opacities bleeding into the anterior segment. There is a small left pleural effusion with adjacent atelectasis of the posterior left lower lobe. Dependent consolidation of the right lower lobe at the base. Few scattered calcified granulomas. Minimal consolidation within the medial right middle lobe is most likely on the basis of subsegmental atelectasis or scarring. Respiratory motion and centrilobular emphysematous changes limit evaluation for subtle pulmonary findings. There is a stable 0.9 cm oval density along the right minor fissure that is not significantly changed since 2007 and consistent with a fissural lymph node. MEDIASTINUM: Heart size is normal. No pericardial effusion. Prominent but nonpathologically enlarged aorticopulmonary lymph node measuring 0.9 cm. No bulky mediastinal or hilar lymphadenopathy. Atherosclerosis thoracic aorta. Limited views of the thyroid are unremarkable. Trachea is midline and central airways are patent. PLEURA: Small left pleural effusion. Trace right pleural effusion. AXILLA: No lymphadenopathy. UPPER ABDOMEN: Unremarkable. OSSEOUS STRUCTURES: Degenerative changes of the spine. No acute or suspicious osseous abnormality. IMPRESSION: 1. Dense consolidation of the left upper lobe with air bronchograms consistent with pneumonia as provided in the clinical history. Consolidation of the left lower lobe adjacent to the pleural effusion may simply be due to compressive atelectasis although a superimposed infection in this area is not excluded. The consolidation of the right lung base is likely due to dependent change. Attention to all these regions on follow up imaging after the patient has recovered is recommended to exclude an underlying infectious process. 2. Other chronic, nonacute findings as above. Impression/Plan Impression/Problem List Impression: Ms. Beal is a 72 y/o F with a PMH significant for MDS with 5q-, HTN, asthma/ COPD, GERD, rectal cancer s/p neoadjuvant chemorad followed by lower anterior resection with reverting loop ileostomy and ileostomy reversal (2006), rectovaginal fistula with anastomotic breakdown and perirectal abscess (Oct 2016 ) that came to the ED c/o fever of 2 days, chills, productive cough with yellow sputum, and SOB. ED CXR showed LLL consolidation in the context of a leukopenic/ bandemic patient. She was admitted to the inpatient service for management of sepsis 2/2 LLL pneumonia. Of note, pt had prior admission to [place] 2 weeks ago after being treated for SOB, hypoxia, and weakness due to anemia. She was transferred to the ICU on 06/24 for closer monitoring due to increasing respiratory distress and work of breathing. #IMPRESSION #Sepsis 2/2 LLL Pneumonia #Acute Hypoxemic Resp Failure in the setting of pneumonia and COPD E #MDS, pancytopenic #Troponin elevation, type II VT in the setting of sepsis #New Onset A-fib with RVR with spontaneous reversion #H/o Rectal Ca s/p neoadjuvant chemorad, surgical interventions #H/o HTN #Sepsis 2/2 LLL Pneumonia Pt's presenting complains alongside a CXR showing LLL consolidation in the setting of this pancytopenic patient with a recent hospital admission was initially concerning for HAP. Cultures and urinary antigens have so far been negative; her initial broad coverage with vancomycin and ceftazidime for two days has been switched for ceftriaxone and azythromycin as per ID recommendations, as suspicion for HAP decreases. Cultures to be follow up. -Coverage with ceftriaxone and azythromycin (day #1) -F/u cultures #Acute Hypoxemic Resp Failure in the setting of pneumonia and COPD E Pt's history of COPD definetely plays a role into her current respiratory status now with a superimposed pneumonia. She intermittently uses oxygen as home as needed; though currently on HFNC with 60% FiO2. As per pt, her SOB has improved compared to yesterday. -O2 Sat>92% -Symbicort 2 puffs q12 -Spiriva 1 inh daily #MDS, pancytopenic Pt's history of MDS with 5q deletion on lenalidomide. Her medication has been held. Her current counts are: Hb:8.5 WBC:2.1 PLT:74 ANC: 1.4. Heme/Onc is following, recommendations are being followed -Transfuse PLT if <10,000, <20,000 with fever, or <50,000 with bleeding -Transfuse pRBC if Hb <8 #New Onset A-fib with RVR with spontaneous reversion Her new onset a-fib spontaneously reversed without intervention. Currently in NSR. #Troponin elevation, type II VT in the setting of sepsis // HTN Pt on admission did have a mildly positive troponin, that were trended. Though there was no complain of chest pain. A chest CT was negative for PE. This troponin elevation in the setting of sepsis 2/2 pneumonia is likely due to demand ischemia. Could benefit from outpt ischemia eval. -Continue Plavix -Metoprolol 50 mg BID DNR/DNI REG DIET DVT PPX Problem List: 1. MDS (myelodysplastic syndrome) with 5q deletion 2. Symptomatic anemia 3. Pneumonia Pain Ratin Tomorrow's Labs & Rationales: cbc Plan DVT/Prophylaxis: mechanical
--- NOTE | 2018-06-25 09:00 | PN- Infect Dx ---
Subjective Subjective: Afebrile. She did have shortness of breath overnight. She also complains of generalized pain. She has been in and out of atrial fibrillation. Liquid brown stools reported via the ileostomy. Objective Last 24 Hrs of Vital Signs/I&O Vital Signs Date Time Temp Pulse Resp B/P B/P Pulse O2 O2 Flow FiO2 Mean Ox Delivery Rate 06/25 0831 97 Nasal 60% Cannula 06/25 0620 71 21 148/79 06/25 0400 98 Nasal 70% Cannula 06/25 0155 97 Nasal 70% Cannula 06/25 0153 97 06/25 0000 99 Nasal 70% Cannula 06/24 2300 96.9 68 13 120/70 96 Nasal 70% Cannula 06/24 2046 87 13 135/56 06/24 2000 94 Nasal 70% Cannula 06/24 1946 98 Nasal 75% Cannula 06/24 1936 97.2 06/24 1837 99.0 06/24 1647 99 Nasal 80% Cannula 06/24 1600 98 Nasal 80% Cannula 06/24 1600 97.9 96 96 130/70 98 Nasal 80% Cannula 06/24 1408 110 110/87 06/24 1339 110 95 06/24 1310 88 95 06/24 1200 94 Nasal 80% Cannula 06/24 1200 98.2 77 22 150/70 92 BIPAP 06/24 1015 96 Nasal 85% Cannula Intake & Output 06/25 1600 06/25 0800 06/25 0000 Intake Total 120 120 Output Total 700 400 Balance -580 -280 Intake, Oral 120 120 Output, Stool 200 200 Output, Urine 500 200 Patient 246 lb 247 lb Weight Weight Bed scale Measurement Method Physical Exam Other Physical Findings: She appears comfortable on high flow oxygen at 70%, in no acute distress Lungs bilateral inspiratory wheezes Heart regular rhythm with no murmur Extremities no cyanosis, clubbing or edema Results Last 24 Hours of Lab Results: Laboratory Tests 06/25 0541 Chemistry Sodium (137 - 145 mmol/L) 140 Potassium (3.5 - 5.1 mmol/L) 3.7 Chloride (98 - 107 mmol/L) 103 Carbon Dioxide (22 - 30 mmol/L) 29 Anion Gap (5 - 16) 8 BUN (7 - 17 mg/dL) 12 Creatinine (0.5 - 1.0 mg/dL) 0.7 Estimated GFR (>60 ml/min) > 60 BUN/Creatinine Ratio (7 - 25 %) 17.1 Hematology CBC w Diff NO MAN DIFF REQ WBC (4.8 - 10.8 /CUMM) 2.1 L RBC (4.20 - 5.40 /CUMM) 2.44 L Hgb (12.0 - 16.0 G/DL) 8.5 L Hct (37 - 47 %) 25.6 L MCV (81.0 - 99.0 FL) 105.0 H MCH (27.0 - 31.0 PG) 34.9 H MCHC (33.0 - 37.0 G/DL) 33.3 RDW (11.5 - 14.5 %) 24.1 H Plt Count (130 - 400 /CUMM) 74 L MPV (7.4 - 10.4 FL) 9.2 Gran % (42.2 - 75.2 %) 68.0 Lymphocytes % (20.5 - 51.1 %) 26.6 Monocytes % (1.7 - 9.3 %) 3.9 Eosinophils % (0 - 5 %) 1.4 Basophils % (0.0 - 2.0 %) 0.1 Absolute Granulocytes (1.4 - 6.5 /CUMM) 1.4 Absolute Lymphocytes (1.2 - 3.4 /CUMM) 0.6 L Absolute Monocytes (0.10 - 0.60 /CUMM) 0.1 Absolute Eosinophils (0.0 - 0.7 /CUMM) 0 Absolute Basophils (0.0 - 0.2 /CUMM) 0 Last 24 Hours of Dar Results: Blood cultures x 2 June 22 negative Assessment/Plan ID Impression: Ongoing respiratory failure secondary to a left upper lobe pneumonia, with her temperatures remaining normal on Ceftazidime, status post 1 dose of Vancomycin 3 days ago and 1 dose of Ceftriaxone 2 days ago, with no sputum culture obtained and with her blood cultures remaining negative. Her white blood cell count remains low secondary to her myelodysplastic syndrome, with no bands reported today. Her nares screen is negative for MRSA; therefore the need for Vancomycin is unclear. Suggestion: 1. Discontinue Vancomycin and Ceftazidime 2. Restart Ceftriaxone 1 g IV every 24 hours and Azithromycin 500 mg IV every 24 hours
--- NOTE | 2018-06-25 10:42 | PN- Cardiology ---
Subjective Subjective: Still fatigued but tells me she does feel a little better today. Objective Vital Signs and I&Os Vital Signs Date Time Temp Pulse Resp B/P B/P Pulse O2 O2 Flow FiO2 Mean Ox Delivery Rate 06/25 0831 97 Nasal 60% Cannula 06/25 0800 98 Nasal 70% Cannula 06/25 0800 98.1 66 22 120/50 98 Nasal 70% Cannula 06/25 0620 71 21 148/79 06/25 0400 98 Nasal 70% Cannula 06/25 0155 97 Nasal 70% Cannula 06/25 0153 97 06/25 0000 99 Nasal 70% Cannula 06/24 2300 96.9 68 13 120/70 96 Nasal 70% Cannula 06/24 2046 87 13 135/56 06/24 2000 94 Nasal 70% Cannula 06/24 1946 98 Nasal 75% Cannula 06/24 1936 97.2 06/24 1837 99.0 06/24 1647 99 Nasal 80% Cannula 06/24 1600 98 Nasal 80% Cannula 06/24 1600 97.9 96 96 130/70 98 Nasal 80% Cannula 06/24 1408 110 110/87 06/24 1339 110 95 06/24 1310 88 95 06/24 1200 94 Nasal 80% Cannula 06/24 1200 98.2 77 22 150/70 92 BIPAP Intake & Output 06/25 1600 06/25 0800 06/25 0000 06/24 1600 06/24 0800 06/24 0000 Intake Total 120 120 220 220 690 Output Total 700 400 350 2 Balance -580 -280 -130 220 688 Intake, IV 20 250 Intake, Oral 120 120 200 220 440 Output, Stool 200 200 150 2 Output, Urine 500 200 200 Patient 246 lb 247 lb 243 lb Weight Weight Bed scale Measurement Method Physical Exam: General: no apparent distress. On high flow oxygen. Eyes: No obvious scleral icterus. HEENT: No jugular venous distention or abnormal jugular venous pulsations. Cardiovascular: Normal intensity S1/S2. PMI not grossly displaced. Respiratory: Decreased left-sided air entry Abdomen: Soft, nontender with no guarding or rebound tenderness. Musculoskeletal: No clubbing or cyanosis noted; trace lower extremity edema Skin: warm Neurologic: No gross focal deficits noted. Current Medications: Current Medications Sig/Dontae Start time Last Medication Dose Route Stop Time Status Admin Acetaminophen 1,000 MG Q6P PRN 06/22 2230 AC 06/24 IV 1837 Albuterol Sulfate 3 ML TID 06/23 2100 AC 06/24 INH 1941 Azithromycin 500 MG Q24H 06/23 1419 DC 06/23 Sodium Chloride 250 ML IV 1500 Budesonide/ 2 PUF BID 06/23 0900 AC 06/25 Formoterol Fumarate INH 0832 Calcium Carbonate 500 MG BID PRN 06/25 0700 AC 06/25 PO 0916 Ceftazidime 1,000 MG Q8 06/24 1400 AC 06/25 IV 0620 Ceftazidime 1,000 MG Q12 06/24 1215 DC IV Ceftriaxone Sodium 1,000 MG Q24H 06/23 1420 DC 06/23 IV 1500 Clopidogrel Bisulfate 75 MG DAILY 06/23 09 AC 06/25 PO 0832 Hydromorphone HCl 1 MG Q4 HRS NEEDED PRN 06/22 2230 AC 06/25 IV 0521 Metoprolol Tartrate 50 MG BID 06/26 0900 AC PO Metoprolol Tartrate 25 MG Q8 06/24 1400 AC 06/25 PO 06/25 2300 0620 Omeprazole 40 MG DAILY AC 06/25 1033 AC PO Ondansetron HCl 4 MG Q6P PRN 06/25 1045 CAN IV Ondansetron HCl 4 MG .STK-MED ONE 06/24 1533 DC IM 06/24 1534 Ondansetron HCl 4 MG Q6P PRN 06/22 2230 AC 06/25 IV 0916 Oxycodone HCl 20 MG Q12H 06/22 2300 AC 06/25 PO 0926 Sodium Chloride 1 SPRAY DAILY NEEDED PRN 06/23 2045 AC 06/25 CHARLENE 0620 Vancomycin HCl 1,500 MG DAILY 06/25 0900 AC 06/25 Sodium Chloride 250 ML IV 0917 Zolpidem Tartrate 5 MG QPM PRN 06/22 2300 AC 06/25 PO 0000 Results Last 48 Hrs of Labs/Mics: Laboratory Tests 06/25/18 0541: Anion Gap 8, Estimated GFR > 60, BUN/Creatinine Ratio 17.1, CBC w Diff NO MAN DIFF REQ, RBC 2.44 L, MCV 105.0 H, MCH 34.9 H, MCHC 33.3, RDW 24.1 H, MPV 9.2, Gran % 68.0, Lymphocytes % 26.6, Monocytes % 3.9, Eosinophils % 1.4, Basophils % 0.1, Absolute Granulocytes 1.4, Absolute Lymphocytes 0.6 L, Absolute Monocytes 0.1, Absolute Eosinophils 0, Absolute Basophils 0 06/24/18 0835: CBC w Diff MAN DIFF ORDERED, RBC 2.53 L, MCV 105.3 H, MCH 35.0 H, MCHC 33.3, RDW 25.1 H, MPV 8.6, Gran % 48.3, Lymphocytes % 46.0, Monocytes % 5.5, Eosinophils % 0.2, Basophils % 0, Absolute Granulocytes 1.0 L, Segmented Neutrophils 52, Band Neutrophils 7 H, Absolute Lymphocytes 1.0 L, Lymphocytes 36, Monocytes 5, Absolute Monocytes 0.1, Absolute Eosinophils 0, Absolute Basophils 0, Polychromasia 1+, Hypochromic-Microcytic 1+, Poikilocytosis 2+, Anisocytosis 2+, Macrocytic Cells 2+ Microbiology 06/23 1902 UPPER RESP: Surveillance Culture - COMP Recent Imaging Studies: Telemetry tracings were personally reviewed and show atrial fibrillation/flutter with conversion to sinus rhythm at approximately 7 AM Assessment/Plan Assessment/Plan 1. Pneumonia 2. Minimal troponin elevation likely due to demand ischemia 3. Pancytopenia with history of myelodysplastic syndrome 4. Rectal cancer status post neoadjuvant chemotherapy 5. COPD 6. Hypertension 7. Paroxysmal atrial fibrillation flutter; new onset in the setting of pneumonia with spontaneous conversion to sinus rhythm; not on anticoagulation due to patient preference and pancytopenia Patient spontaneously converted to sinus rhythm this morning. Continue on the Plavix and beta-lolita. Respiratory status appears stable on high flow oxygen. Antibiotics per the medical team. Sukh Gamboa MD [facility] Continue telemetry? Yes
[2018-06-25 12:00] VITALS: BP 120/70
[2018-06-25 16:00] VITALS: BP 130/60
[2018-06-25 23:00] VITALS: BP 114/60
[2018-06-26 07:22] LABS: ABSOLUTE BASOPHIL COUNT 0 /CUMM (0.0-0.2); ABSOLUTE EOSINOPHIL COUNT 0 /CUMM (0.0-0.7); ABSOLUTE GRANULOCYTE CT 1.6 /CUMM (1.4-6.5); ABSOLUTE LYMPH COUNT 0.7 /CUMM (1.2-3.4); ABSOLUTE MONOCYTE COUNT 0.1 /CUMM (0.10-0.60); BASOPHIL % 0.3 % (0.0-2.0); EOSINOPHIL % 1.6 % (0-5); GRANULOCYTE % 64.4 % (42.2-75.2); HEMATOCRIT 25.8 % (37-47); MEAN CORPUSCULAR HGB 35.3 PG (27.0-31.0); MEAN CORPUSCULAR HGB CONC 33.8 G/DL (33.0-37.0); MEAN CORPUSCULAR VOLUME 104.6 FL (81.0-99.0); MEAN PLATELET VOLUME 8.8 FL (7.4-10.4); PLATELET COUNT 74 /CUMM (130-400); RED BLOOD CELL CT 2.47 /CUMM (4.20-5.40); WHITE BLOOD CELL COUNT 2.4 /CUMM (4.8-10.8)
[2018-06-26 08:00] VITALS: BP 120/56
--- NOTE | 2018-06-26 08:08 | PN- Resident CRCU ---
Subjective HPI/CRCU Issues: Sepsis 2/2 left lung pneumonia Acute Hypoxemic Resp Failure COPD MDS, pancytopenia type II NSTEMI in the setting of sepsis New Onset A-fib with RVR, now in sinus rhythm H/o Rectal Ca s/p neoadjuvant chemoradiation and surgery 24 Hour Events: No overnight events, afebrile dyspnea is improved remains on high fllow NC, althought FiO2 is gradually improving now on ceftriaxone azithromycin for pneumonia Objective Vital Signs & I&O Last 8 Hrs of Vitals and I&O: Temp 97.9 HR 74 BP 136/74 RR 18 SpO2 96% FiO2 0.55 High flow NC Exam General Appearance: well developed/nourished, alert, awake, mild distress (on highflow NC) Respiratory: crackles, rhonchi, wheezing, L>R Cardiovascular: regular rate/rhythm, normal peripheral pulses Gastrointestinal: normal bowel sounds, soft, non-tender, RLQ ostomy Extremities: normal inspection, normal capillary refill, normal range of motion, no edema Current Medications: Current Medications Sig/Dontae Start time Last Medication Dose Route Stop Time Status Admin Acetaminophen 650 MG ONCE ONE 06/25 1930 DC 06/25 PO 06/25 193 194 Acetaminophen 1,000 MG Q6P PRN 06/22 2230 AC 06/24 IV 1837 Albuterol Sulfate 3 ML TID 06/23 2100 AC 06/26 INH 0907 Azithromycin 500 MG DAILY 06/26 900 AC 06/26 Sodium Chloride 250 ML IV 0945 Budesonide/ 2 PUF BID 06/23 09 AC 06/26 Formoterol Fumarate INH 0946 Calcium Carbonate 500 MG BID PRN 06/25 07 AC 06/25 PO 0916 Ceftriaxone Sodium 1,000 MG DAILY 06/26 09 AC 06/26 IV 1123 Clopidogrel Bisulfate 75 MG DAILY 06/23 09 AC 06/26 PO 0945 Hydromorphone HCl 1 MG Q4 HRS NEEDED PRN 06/22 2230 AC 06/26 IV 0617 Metoprolol Tartrate 50 MG BID 06/26 09 AC 06/26 PO 0945 Metoprolol Tartrate 25 MG Q8 06/24 1400 DC 06/25 PO 06/25 2300 2157 Omeprazole 40 MG DAILY AC 06/25 1033 AC 06/26 PO 0621 Ondansetron HCl 4 MG Q6P PRN 06/22 2230 AC 06/25 IV 0916 Oxycodone HCl 20 MG Q12H 06/22 2300 AC 06/26 PO 1124 Potassium Chloride 40 MEQ .STK-MED ONE 06/25 1924 DC PO 06/25 192 Potassium Chloride 40 MEQ ONCE ONE 06/25 1900 DC 06/25 PO 06/25 1901 194 Sodium Chloride 1 SPRAY DAILY NEEDED PRN 06/23 204 AC 06/25 CHARLENE 0620 Zolpidem Tartrate 5 MG QPM PRN 06/22 2300 AC 06/[address] Scan Findings: IMPRESSION: 1. Dense consolidation of the left upper lobe with air bronchograms consistent with pneumonia as provided in the clinical history. Consolidation of the left lower lobe adjacent to the pleural effusion may simply be due to compressive atelectasis although a superimposed infection in this area is not excluded. The consolidation of the right lung base is likely due to dependent change. Attention to all these regions on follow up imaging after the patient has recovered is recommended to exclude an underlying infectious process. 2. Other chronic, nonacute findings as above. Impression/Plan Impression/Problem List Impression: 72 year old F with a PMH significant for MDS with 5q-, HTN, asthma/COPD, GERD, rectal cancer s/p neoadjuvant chemorad followed by lower anterior resection with reverting loop ileostomy and ileostomy reversal (2006), rectovaginal fistula with anastomotic breakdown and perirectal abscess (Oct 2016) that came to the ED c/o fever of 2 days, chills, productive cough with yellow sputum, and SOB. ED CXR showed LLL consolidation in the context of a leukopenic/bandemic patient. She was admitted to the inpatient service for management of sepsis 2/2 LLL pneumonia. Sepsis 2/2 left lung pneumonia Leukopenia with bandemia, hypoxemia, and CXR showing LLL consolidation Chest CT showed dense KATE PNA and compressive atelectasis of LLL Recent hospital admission, initially tx'd with 2 days vanc/ceftaz for HCAP. Cultures negative so far although unable to obtain a sputum cx Now on ceftriaxone and azithroymcin, day 2 Repeat chest x-ray tomorrow Acute Hypoxemic Resp Failure History of COPD Continue high flow nasal cannula, currently saturating well on 55%, down from FiO2 0.8 Continue symbicort and spiriva TRC evaluation Continue nebulized albuterol and ipatropium Pancytopenia: Secondary to MDS with 5q deletion on lenalidomide. Her medication has been held Trend CBC, no need for transfusions at this time Follow up with heme/onc as an outpatient Atrial fibrillation with RVR: Now in sinus rhythm with spontaneous reversion Continue metoprolol Elevated troponins Type II NSTEMI in the setting of sepsis/PNA Consider outpatient stress testing/cardiac catheterization Continue plavix and metoprolol 50 mg PO BID Colorectal cancer: s/p surgery and chemoradiotherapy Follow up with Dr. Mcgovern for mgmt of ostomy and sacral collection/drainage Regular diet DVT ppx-ALPs only DNR/DNI Problem List: 1. Leukopenia 2. MDS (myelodysplastic syndrome) with 5q deletion 3. Elevated troponin 4. Hypoxia 5. Pancytopenia 6. Pneumonia Pain Ratin Tomorrow's Labs & Rationales: cbc, icu Plan DVT/Prophylaxis: mechanical
--- NOTE | 2018-06-26 08:27 | PN- CRCU ---
Subjective HPI/Critical Care Issues: The patient is awake and alert. She reports having less shortness of breath. She was able to sleep for a few hours overnight. She feels that she has improved since admission. She is unable to cough up any significant sputum. She has chronic pain however this is not changed. There were no overnight events reported. She remains on high flow oxygen at 55%. She is afebrile. Objective Current Medications: Current Medications Sig/Dontae Start time Last Medication Dose Route Stop Time Status Admin Acetaminophen 650 MG ONCE ONE 06/25 193 DC 06/25 PO 06/25 Acetaminophen 1,000 MG Q6P PRN 06/22 223 AC 06/24 IV 1837 Albuterol Sulfate 3 ML TID 06/23 2100 AC 06/25 INH 2059 Azithromycin 500 MG DAILY 06/26 09 AC Sodium Chloride 250 ML IV Budesonide/ 2 PUF BID 06/23 0900 AC 06/25 Formoterol Fumarate INH 2158 Calcium Carbonate 500 MG BID PRN 06/25 0700 AC 06/25 PO 0916 Ceftazidime 1,000 MG Q8 06/24 1400 DC 06/25 IV 0620 Ceftriaxone Sodium 1,000 MG DAILY 06/26 0900 AC IV Clopidogrel Bisulfate 75 MG DAILY 06/23 0900 AC 06/25 PO 0832 Hydromorphone HCl 1 MG Q4 HRS NEEDED PRN 06/22 2230 AC 06/26 IV 0617 Metoprolol Tartrate 50 MG BID 06/26 0900 AC PO Metoprolol Tartrate 25 MG Q8 06/24 1400 DC 06/25 PO 06/25 2300 2157 Omeprazole 20 MG ONCE ONE 06/25 1115 CAN PO 06/25 1116 Omeprazole 40 MG DAILY AC 06/25 1033 AC 06/26 PO 0621 Ondansetron HCl 4 MG Q6P PRN 06/25 1045 CAN IV Ondansetron HCl 4 MG Q6P PRN 06/22 2230 AC 06/25 IV 0916 Oxycodone HCl 20 MG Q12H 06/22 2300 AC 06/25 PO 2334 Potassium Chloride 40 MEQ .STK-MED ONE 06/25 1924 DC PO 06/25 192 Potassium Chloride 40 MEQ ONCE ONE 06/25 1900 DC 06/25 PO 06/25 1901 194 Sodium Chloride 1 SPRAY DAILY NEEDED PRN 06/23 2045 AC 06/25 CHARLENE 0620 Vancomycin HCl 1,500 MG DAILY 06/25 0900 DC 06/25 Sodium Chloride 250 ML IV 0917 Zolpidem Tartrate 5 MG QPM PRN 06/22 2300 AC 06/25 PO 2334 Vital Signs & I&O Last 24 Hrs of Vitals and I&O: Vital Signs Date Time Temp Pulse Resp B/P B/P Pulse O2 O2 Flow FiO2 Mean Ox Delivery Rate 06/26 0408 97 Nasal 55% Cannula 06/26 0400 92 Nasal 55% Cannula 06/26 0000 95 Nasal 55% Cannula 06/25 2300 97.1 63 13 114/60 95 Nasal 55% Cannula 06/25 2157 66 18 144/86 06/25 2100 93 Nasal 55% Cannula 06/25 2000 95 Nasal 55% Cannula 06/25 1600 93 Nasal 55% Cannula 06/25 1600 98.1 74 18 130/60 93 Nasal 55% Cannula 06/25 1340 93 Nasal 60% Cannula 06/25 1338 89 120/54 06/25 1200 96 Nasal 55% Cannula 06/25 1200 98.1 72 20 120/70 96 Nasal 55% Cannula 06/25 0831 97 Nasal 60% Cannula Intake & Output 06/26 1600 06/26 0800 06/26 0000 Intake Total 120 520 Output Total 500 300 Balance -380 220 Intake, Oral 120 520 Output, Stool 100 150 Output, Urine 400 150 Patient 245 lb Weight Weight Bed scale Measurement Method Exam General Appearance: alert, awake, comfortable, no distress Head: atraumatic, normal appearance Neck: normal inspection, supple Respiratory: chest non-tender, respiratory distress, scattered rhonchi b/l Cardiovascular: regular rate/rhythm Gastrointestinal: normal bowel sounds, soft, non-tender, no organomegaly, ileostomy noted Extremities: normal inspection, normal capillary refill Results Last 24 Hrs of Lab Results: Laboratory Tests 06/26/18 0606: Anion Gap 7, Estimated GFR > 60, BUN/Creatinine Ratio 20.0, Magnesium 2.0, CBC w Diff NO MAN DIFF REQ, RBC 2.47 L, MCV 104.6 H, MCH 35.3 H, MCHC 33.8, RDW 24.0 H, MPV 8.8, Gran % 64.4, Lymphocytes % 29.1, Monocytes % 4.6, Eosinophils % 1.6, Basophils % 0.3, Absolute Granulocytes 1.6, Absolute Lymphocytes 0.7 L, Absolute Monocytes 0.1, Absolute Eosinophils 0, Absolute Basophils 0 Impression/Plan Impression/Plan Impression/Plan: 1. Left lower lobe pneumonia, with sepsis. 2. Acute hypoxemic respiratory failure secondary to pneumonia. 3. History of COPD, intermittently oxygen dependent, with improved bronchospasm. 4. Pancytopenia. 5. Myelodysplastic syndrome. 6. Previous rectal cancer status post multiple surgical interventions and neoadjuvant chemoradiation. 7. Recent blood loss anemia. Hemoglobin currently stable. 8. Atrial flutter/fibrillation with spontaneous conversion. 9. Mildly elevated troponin secondary to demand ischemia. 10. History of hypertension. 11. Chronic pain. Recommendations: * Continue high flow oxygen to maintain saturation greater than 92%. * Discontinue BiPAP. * Continue nebulizer treatments every 4 hours while awake. * Continue Spiriva and Symbicort. * Continue ceftriaxone and azithromycin, follow-up cultures. * DVT prophylaxis at all times. * Check a chest x-ray tomorrow morning. * Continue Plavix and metoprolol per cardiology. * Continue with pain control, avoid oversedation. * DVT prophylaxis at all times. * Appreciate consultants input. * If the patient improves, we can consider downgrading her in the next 24 hours to telemetry.
[2018-06-26 16:00] VITALS: BP 140/80
[2018-06-26 22:00] VITALS: BP 138/58
[2018-06-27 04:51] LABS: HEMATOCRIT 25.9 % (37-47); MEAN CORPUSCULAR HGB 35.2 PG (27.0-31.0); MEAN CORPUSCULAR HGB CONC 33.7 G/DL (33.0-37.0); MEAN CORPUSCULAR VOLUME 104.4 FL (81.0-99.0); PLATELET COUNT 86 /CUMM (130-400); RBC DISTRIBUTION WIDTH 23.5 % (11.5-14.5); RED BLOOD CELL CT 2.48 /CUMM (4.20-5.40); WHITE BLOOD CELL COUNT 2.4 /CUMM (4.8-10.8)
--- NOTE | 2018-06-27 07:55 | PN- Infect Dx ---
Subjective Subjective: Afebrile. She feels improved, with decreased shortness of breath. She has no cough or chest discomfort and her appetite has improved. Objective Last 24 Hrs of Vital Signs/I&O Vital Signs Date Time Temp Pulse Resp B/P B/P Pulse O2 O2 Flow FiO2 Mean Ox Delivery Rate 06/27 0400 93 Nasal 50% Cannula 06/27 0058 92 Nasal 50% Cannula 06/27 0000 90 Nasal 50% Cannula 06/26 2247 94 Nasal 50% Cannula 06/26 2200 97.4 64 18 138/58 92 Nasal 50% Cannula 06/26 2051 76 144/58 06/26 2028 94 Nasal 50% Cannula 06/26 2000 97 Nasal 50% Cannula 06/26 1600 98 Nasal 55% Cannula 06/26 1600 98.4 80 22 140/80 98 Nasal 55% Cannula 06/26 1450 90 Nasal 50% Cannula 06/26 1358 94 Nasal 45% Cannula 06/26 1200 94 Nasal 55% Cannula 06/26 0945 74 136/74 06/26 0905 96 Nasal 55% Cannula 06/26 0800 95 Nasal 55% Cannula 06/26 0800 97.9 62 20 120/56 95 Nasal 55% Cannula Intake & Output 06/27 0800 06/27 0000 06/26 1600 Intake Total 500 950 Output Total 1225 700 Balance -725 250 Intake, IV 250 Intake, Oral 500 700 Output, Stool 900 700 Output, Urine 325 Physical Exam Other Physical Findings: She appears comfortable on high flow oxygen Lungs crackles at the left base Heart regular rhythm with no murmur Extremities no cyanosis, clubbing or edema Results Last 24 Hours of Lab Results: Laboratory Tests 06/27 0410 Hematology CBC w Diff MAN DIFF ORDERED WBC (4.8 - 10.8 /CUMM) 2.4 L RBC (4.20 - 5.40 /CUMM) 2.48 L Hgb (12.0 - 16.0 G/DL) 8.7 L Hct (37 - 47 %) 25.9 L MCV (81.0 - 99.0 FL) 104.4 H MCH (27.0 - 31.0 PG) 35.2 H MCHC (33.0 - 37.0 G/DL) 33.7 RDW (11.5 - 14.5 %) 23.5 H Plt Count (130 - 400 /CUMM) 86 L MPV (7.4 - 10.4 FL) 9.0 Segmented Neutrophils (42.2 - 75.2 %) 48 Lymphocytes (20.5 - 51.1 %) 47 Monocytes (1.7 - 9.3 %) 2 Eosinophils (0 - 5.0 %) 3 Platelet Estimate (ADEQUATE) DECREASED Normochromic RBCs VERIFIED Poikilocytosis 1+ Basophilic Stippling RARE Anisocytosis 2+ Macrocytic Cells 2+ Last 24 Hours of Dar Results: No recent cultures Recent Imaging Studies: Chest x-ray June 27 improved aeration at the right base; left lung density without significant change Assessment/Plan ID Impression: Somewhat improved, with decreased shortness of breath and decreased oxygen requirements, on Ceftriaxone and Azithromycin, now Day 5 of treatment for a left upper lobe pneumonia. She remains pancytopenic secondary to her myelodysplastic syndrome; therefore her white blood cell count is not a useful parameter to follow. Suggestion: 1. Continue high flow oxygen per Pulmonary 2. Continue Ceftriaxone and Azithromycin Liset Richards MD will be covering until June 30
[2018-06-27 08:00] VITALS: BP 144/60
--- NOTE | 2018-06-27 09:00 | RADIOLOGY REPORT ---
EXAMINATION: XR PORTABLE CHEST CLINICAL INFORMATION: Hypoxia and dyspnea. COMPARISON: Comparison 06/22/2018. CT chest 06/24/2018. TECHNIQUE: Portable frontal view of the chest was obtained. FINDINGS: There there is persistent left lower lobe and lingular consolidation as noted on the recent CT chest. The left upper lung and the right lung remains clear. Heart size is enlarged with increased pulmonary vascularity but no kamran congestion seen. No gross bony abnormality noted. IMPRESSION: Persistent lingular and left lower lobe consolidation. It is unchanged to CT chest 06/24/2018.
--- NOTE | 2018-06-27 10:12 | PN- Resident CRCU ---
Subjective HPI/CRCU Issues: #Sepsis 2/2 LLL Pneumonia #Acute Hypoxemic Resp Failure in the setting of pneumonia and COPD E #MDS, pancytopenic #Troponin elevation, type II DC in the setting of sepsis #New Onset A-fib with RVR with spontaneous reversion #H/o Rectal Ca s/p neoadjuvant chemorad, surgical interventions #H/o HTN 24 Hour Events: Pt seen and examined this am. She was talkative, pleasant and cooperative. She does complain of increasing fatigue and weakness. No other acute complains. She is less dyspneic, currently on HFNC with 48% O2, sat>92%. Objective Vital Signs & I&O Last 8 Hrs of Vitals and I&O: Vital Signs Date Time Temp Pulse Resp B/P B/P Pulse O2 O2 Flow FiO2 Mean Ox Delivery Rate 06/27 1200 95 Nasal 50% Cannula 06/27 0940 94 Nasal 50% Cannula 06/27 0800 94 Nasal 50% Cannula 06/27 0800 96.9 64 20 144/60 94 Nasal 50% Cannula 06/27 0400 93 Nasal 50% Cannula 06/27 0058 92 Nasal 50% Cannula 06/27 0000 90 Nasal 50% Cannula 06/26 2247 94 Nasal 50% Cannula 06/26 2200 97.4 64 18 138/58 92 Nasal 50% Cannula 06/26 2051 76 144/58 06/26 2028 94 Nasal 50% Cannula 06/26 2000 97 Nasal 50% Cannula 06/26 1600 98 Nasal 55% Cannula 06/26 1600 98.4 80 22 140/80 98 Nasal 55% Cannula 06/26 1450 90 Nasal 50% Cannula Laboratory Tests 06/27/18 0410: CBC w Diff MAN DIFF ORDERED, RBC 2.48 L, MCV 104.4 H, MCH 35.2 H, MCHC 33.7, RDW 23.5 H, MPV 9.0, Segmented Neutrophils 48, Lymphocytes 47, Monocytes 2, Eosinophils 3, Platelet Estimate DECREASED, Normochromic RBCs VERIFIED, Poikilocytosis 1+, Basophilic Stippling RARE, Anisocytosis 2+, Macrocytic Cells 2+ 06/26/18 0606: Anion Gap 7, Estimated GFR > 60, BUN/Creatinine Ratio 20.0, Magnesium 2.0, CBC w Diff NO MAN DIFF REQ, RBC 2.47 L, MCV 104.6 H, MCH 35.3 H, MCHC 33.8, RDW 24.0 H, MPV 8.8, Gran % 64.4, Lymphocytes % 29.1, Monocytes % 4.6, Eosinophils % 1.6, Basophils % 0.3, Absolute Granulocytes 1.6, Absolute Lymphocytes 0.7 L, Absolute Monocytes 0.1, Absolute Eosinophils 0, Absolute Basophils 0 06/25/18 0541: Anion Gap 8, Estimated GFR > 60, BUN/Creatinine Ratio 17.1, CBC w Diff NO MAN DIFF REQ, RBC 2.44 L, MCV 105.0 H, MCH 34.9 H, MCHC 33.3, RDW 24.1 H, MPV 9.2, Gran % 68.0, Lymphocytes % 26.6, Monocytes % 3.9, Eosinophils % 1.4, Basophils % 0.1, Absolute Granulocytes 1.4, Absolute Lymphocytes 0.6 L, Absolute Monocytes 0.1, Absolute Eosinophils 0, Absolute Basophils 0 Intake & Output 06/27 1600 Intake Total 880 Output Total 925 Balance -45 Intake, IV 0 Intake, Oral 880 Output, Stool 400 Output, Urine 525 Exam General Appearance: alert, awake, mild distress Head: atraumatic, normal appearance Neck: normal inspection, supple Respiratory: normal breath sounds, chest non-tender, no respiratory distress Cardiovascular: regular rate/rhythm Gastrointestinal: normal bowel sounds, soft, non-tender, no organomegaly Extremities: normal inspection, normal capillary refill Current Medications: Current Medications Sig/Dontae Start time Last Medication Dose Route Stop Time Status Admin Acetaminophen 650 MG Q4P PRN 06/26 2145 AC 06/26 PO 214 Acetaminophen 1,000 MG Q6P PRN 06/22 2230 VA 06/24 IV 1837 Albuterol Sulfate 3 ML TID 06/23 2100 AC 06/27 INH 1419 Amoxicillin/ 875 MG Q12 06/27 1130 AC 06/27 Clavulanate Potassium PO 06/27 210 1247 Azithromycin 250 MG DAILY 06/27 1130 AC 06/27 PO 1247 Azithromycin 500 MG DAILY 06/26 09 DC 06/26 Sodium Chloride 250 ML IV 0945 Budesonide/ 2 PUF BID 06/23 09 AC 06/27 Formoterol Fumarate INH 0944 Calcium Carbonate 500 MG BID PRN 06/25 07 AC 06/25 PO 0916 Ceftriaxone Sodium 1,000 MG DAILY 06/26 09 AC 06/26 IV 1123 Clopidogrel Bisulfate 75 MG DAILY 06/23 09 AC 06/27 PO 0943 Hydromorphone HCl 2 MG Q4-6 PRN PRN 06/27 1145 AC PO Hydromorphone HCl 4 MG ONCE ONE 06/27 0945 DC 06/27 PO 06/27 0946 0946 Hydromorphone HCl 1 MG Q4 HRS NEEDED PRN 06/22 2230 AC 06/27 IV 0341 Metoprolol Tartrate 50 MG BID 06/26 09 AC 06/27 PO 0943 Omeprazole 40 MG DAILY AC 06/25 1033 AC 06/27 PO 0800 Ondansetron HCl 4 MG Q6P PRN 06/22 2230 AC 06/25 IV 0916 Oxycodone HCl 20 MG Q12H 06/22 2300 AC 06/27 PO 1153 Sodium Chloride 1 SPRAY DAILY NEEDED PRN 06/23 2045 AC 06/25 CHARLENE 0620 Zolpidem Tartrate 5 MG QPM PRN 06/22 2300 AC 06/26 PO 2308 CXR Findings: SERVICE DATE: 06/27/18 EXAM TYPE: RAD - XRY-PORTABLE CHEST XRAY EXAMINATION: XR PORTABLE CHEST CLINICAL INFORMATION: Hypoxia and dyspnea. COMPARISON: Comparison 06/22/2018. CT chest 06/24/2018. TECHNIQUE: Portable frontal view of the chest was obtained. FINDINGS: There there is persistent left lower lobe and lingular consolidation as noted on the recent CT chest. The left upper lung and the right lung remains clear. Heart size is enlarged with increased pulmonary vascularity but no kamran congestion seen. No gross bony abnormality noted. IMPRESSION: Persistent lingular and left lower lobe consolidation. It is unchanged to CT chest 06/24/2018. Impression/Plan Impression/Problem List Impression: Ms. Beal is a 72 y/o F with a PMH significant for MDS with 5q-, HTN, asthma/ COPD, GERD, rectal cancer s/p neoadjuvant chemorad followed by lower anterior resection with reverting loop ileostomy and ileostomy reversal (2006), rectovaginal fistula with anastomotic breakdown and perirectal abscess (Oct 2016 ) that came to the ED c/o fever of 2 days, chills, productive cough with yellow sputum, and SOB. ED CXR showed LLL consolidation in the context of a leukopenic/ bandemic patient. She was admitted to the inpatient service for management of sepsis 2/2 LLL pneumonia. Of note, pt had prior admission to [place] 2 weeks ago after being treated for SOB, hypoxia, and weakness due to anemia. She was transferred to the ICU on 06/24 for closer monitoring due to increasing respiratory distress and work of breathing. #IMPRESSION #Sepsis 2/2 LLL Pneumonia #Acute Hypoxemic Resp Failure in the setting of pneumonia and COPD E #MDS, pancytopenic #Troponin elevation, type II DC in the setting of sepsis #New Onset A-fib with RVR with spontaneous reversion #H/o Rectal Ca s/p neoadjuvant chemorad, surgical interventions #H/o HTN #Sepsis 2/2 LLL Pneumonia Pt's presenting complains alongside a CXR showing LLL consolidation in the setting of this pancytopenic patient with a recent hospital admission was initially concerning for HAP. Cultures and urinary antigens have so far been negative; her initial broad coverage with vancomycin and ceftazidime for two days has been switched for ceftriaxone and azythromycin as per ID recommendations, as suspicion for HAP decreases. Latest CXR (06/27) show no change from prior. -Coverage with ceftriaxone and azythromycin (day #3) -Cultures no growth so far, Sputum unable to be obtained #Acute Hypoxemic Resp Failure in the setting of pneumonia and COPD E Pt's history of COPD definetely plays a role into her current respiratory status now with a superimposed pneumonia. She intermittently uses oxygen as home as needed; though currently on HFNC with 46% FiO2. As per pt, her SOB has improved compared to yesterday. 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 Her medication has been held. Her current counts are: Hb:8.5 WBC:2.1 PLT:74 ANC: 1.4. Heme/Onc is following, recommendations are being followed -Transfuse PLT if <10,000, <20,000 with fever, or <50,000 with bleeding -Transfuse pRBC if Hb <8 -F/u cbc #New Onset A-fib with RVR with spontaneous reversion Her new onset a-fib spontaneously reversed without intervention. Currently in NSR. -On metoprolol 50 mg BID #Troponin elevation, type II DC in the setting of sepsis // HTN Pt on admission did have a mildly positive troponin, that were trended. Though there was no complain of chest pain. A chest CT was negative for PE. This troponin elevation in the setting of sepsis 2/2 pneumonia is likely due to demand ischemia. Could benefit from outpt ischemia eval. -Continue Plavix -Metoprolol 50 mg BID DNR/DNI REG DIET DVT PPX Problem List: 1. Leukopenia 2. MDS (myelodysplastic syndrome) with 5q deletion 3. Thrombocytopenia 4. Anemia 5. Pancytopenia 6. Pneumonia Pain Ratin Tomorrow's Labs & Rationales: cbc Plan DVT/Prophylaxis: mechanical
--- NOTE | 2018-06-27 10:46 | PN- Pulmonary ---
Subjective HPI/Critical Care Issues: Patient is awake alert comfortable denies shortness of breath. Objective Current Medications: Current Medications Sig/Dontae Start time Last Medication Dose Route Stop Time Status Admin Acetaminophen 650 MG Q4P PRN 06/26 2145 AC 06/26 PO 214 Acetaminophen 1,000 MG Q6P PRN 06/22 2230 DC 06/24 IV 1837 Albuterol Sulfate 3 ML TID 06/23 2100 AC 06/27 INH 0938 Azithromycin 500 MG DAILY 06/26 09 AC 06/26 Sodium Chloride 250 ML IV 0945 Budesonide/ 2 PUF BID 06/23 09 AC 06/27 Formoterol Fumarate INH 0944 Calcium Carbonate 500 MG BID PRN 06/25 07 AC 06/25 PO 0916 Ceftriaxone Sodium 1,000 MG DAILY 06/26 09 AC 06/26 IV 1123 Clopidogrel Bisulfate 75 MG DAILY 06/23 09 AC 06/27 PO 0943 Hydromorphone HCl 4 MG ONCE ONE 06/27 0945 DC 06/27 PO 06/27 0946 0946 Hydromorphone HCl 1 MG Q4 HRS NEEDED PRN 06/22 2230 AC 06/27 IV 0341 Metoprolol Tartrate 50 MG BID 06/26 09 AC 06/27 PO 0943 Omeprazole 40 MG DAILY AC 06/25 1033 AC 06/27 PO 0800 Ondansetron HCl 4 MG Q6P PRN 06/22 2230 AC 06/25 IV 0916 Oxycodone HCl 20 MG Q12H 06/22 2300 AC 06/26 PO 2300 Sodium Chloride 1 SPRAY DAILY NEEDED PRN 06/23 2045 AC 06/25 CHARLENE 0620 Zolpidem Tartrate 5 MG QPM PRN 06/22 2300 AC 06/26 PO 2308 Vital Signs & I&O Last 24 Hrs of Vitals and I&O: Vital Signs Date Time Temp Pulse Resp B/P B/P Pulse O2 O2 Flow FiO2 Mean Ox Delivery Rate 06/27 08 94 Nasal 50% Cannula 06/27 08 96.9 64 20 144/60 94 Nasal 50% Cannula 06/27 0400 93 Nasal 50% Cannula 06/27 0058 92 Nasal 50% Cannula 06/27 0000 90 Nasal 50% Cannula 06/26 2247 94 Nasal 50% Cannula 06/26 2200 97.4 64 18 138/58 92 Nasal 50% Cannula 06/261 76 144/58 06/26 2028 94 Nasal 50% Cannula 06/26 2000 97 Nasal 50% Cannula 06/26 1600 98 Nasal 55% Cannula 06/26 1600 98.4 80 22 140/80 98 Nasal 55% Cannula 06/26 1450 90 Nasal 50% Cannula 06/26 1358 94 Nasal 45% Cannula 06/26 1200 94 Nasal 55% Cannula Intake & Output 06/27 1600 06/27 0800 06/27 0000 Intake Total 100 500 Output Total 575 1225 Balance -475 -725 Intake, Oral 100 500 Output, Stool 200 900 Output, Urine 375 325 Oxygen saturation 94% on 50% exam for chest shows occasional rhonchi. Exam shows regular S1 and S2 without murmurs abdomen is soft nontender Impression/Plan Impression/Plan Impression/Plan: 72-year-old admitted with acute hypoxic respiratory failure and community acquired pneumonia appears clinically improved Recommendations: Taper FiO2 his saturations allow. Complete course of antibiotics. PT eval and mobilized out of bed.
[2018-06-27 16:00] VITALS: BP 140/48
--- NOTE | 2018-06-27 17:57 | Transfer of Care Summary ---
Hospital Course Course Hospital Course: Reason for ICU admission: management of acute hypoxemic respiratory failure 2/2 pneumonia History of presenting illness: 72 y/o F with a PMH significant for MDS with 5q- , HTN, asthma/COPD, GERD, rectal cancer s/p neoadjuvant chemorad followed by lower anterior resection with reverting loop ileostomy and ileostomy reversal ( 2006), rectovaginal fistula with anastomotic breakdown and perirectal abscess ( Oct 2016) that came to the ED c/o fever of 2 days, chills, productive cough with yellow sputum, and SOB. Interval events in the ICU: She remained on HFNC with O2 titration to mantain O2 sat >92. From 70% now down to 50% O2. No other events, telemetry or otherwise noted during her stay in the ICU. Mechanical ventilation: No NIPPV: No. BiPAP dc'd on 06/26. Pt now on HFNC with O2 now at 50%. Antibiotics plan: Pt originally on Ceftriaxone and Azithromycin, though with loss of peripheral line, a new one has not been able to be obtained. She is now on augmentin and azithro PO pending placement of line. Day #3 Catheters/ Lines plan: None, pending peripheral line placement. Things to be followed up in the floor: follow up on cultures, line placement, CBC Nutrition: Regular Diet DVT prophylaxis: Mechanical Code status:DNR/DNI Assessment/Plan: Ms. Beal is a 72 y/o F with a PMH significant for MDS with 5q-, HTN, asthma/ COPD, GERD, rectal cancer s/p neoadjuvant chemorad followed by lower anterior resection with reverting loop ileostomy and ileostomy reversal (2006), rectovaginal fistula with anastomotic breakdown and perirectal abscess (Oct 2016 ) that came to the ED c/o fever of 2 days, chills, productive cough with yellow sputum, and SOB. ED CXR showed LLL consolidation in the context of a leukopenic/ bandemic patient. She was admitted to the inpatient service for management of sepsis 2/2 LLL pneumonia. Of note, pt had prior admission to [place] 2 weeks ago after being treated for SOB, hypoxia, and weakness due to anemia. She was transferred to the ICU on 06/24 for closer monitoring due to increasing respiratory distress and work of breathing. #IMPRESSION #Sepsis 2/2 LLL Pneumonia #Acute Hypoxemic Resp Failure in the setting of pneumonia and COPD E #MDS, pancytopenic #Troponin elevation, type II SC in the setting of sepsis #New Onset A-fib with RVR with spontaneous reversion #H/o Rectal Ca s/p neoadjuvant chemorad, surgical interventions #H/o HTN #Sepsis 2/2 LLL Pneumonia Pt's presenting complains alongside a CXR showing LLL consolidation in the setting of this pancytopenic patient with a recent hospital admission was initially concerning for HAP. Cultures and urinary antigens have so far been negative; her initial broad coverage with vancomycin and ceftazidime for two days has been switched for ceftriaxone and azythromycin as per ID recommendations, as suspicion for HAP decreases. Latest CXR (06/27) show no change from prior. -Coverage with ceftriaxone and azythromycin. Switched to PO augmentin/azithro temporarily while line placement is acheived. Patient is of difficult venopunction. (day #3) -Cultures no growth so far, Sputum unable to be obtained #Acute Hypoxemic Resp Failure in the setting of pneumonia and COPD E Pt's history of COPD definetely plays a role into her current respiratory status now with a superimposed pneumonia. She intermittently uses oxygen as home as needed; though currently on HFNC with 46% FiO2. As per pt, her SOB has improved compared to yesterday. 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 Her medication has been held. Her current counts are: Hb:8.5 WBC:2.1 PLT:74 ANC: 1.4. Heme/Onc is following, recommendations are being followed -Transfuse PLT if <10,000, <20,000 with fever, or <50,000 with bleeding -Transfuse pRBC if Hb <8 -F/u cbc #New Onset A-fib with RVR with spontaneous reversion Her new onset a-fib spontaneously reversed without intervention. Currently in NSR. -On metoprolol 50 mg BID #Troponin elevation, type II SC in the setting of sepsis // HTN Pt on admission did have a mildly positive troponin, that were trended. Though there was no complain of chest pain. A chest CT was negative for PE. This troponin elevation in the setting of sepsis 2/2 pneumonia is likely due to demand ischemia. Could benefit from outpt ischemia eval. -Continue Plavix -Metoprolol 50 mg BID DNR/DNI REG DIET DVT PPX
[2018-06-27 20:43] VITALS: BP 148/86
[2018-06-27 21:52] VITALS: BP 142/68
[2018-06-28 05:43] VITALS: BP 148/84
--- NOTE | 2018-06-28 07:30 | PN- Housestaff ---
Mike López 06/28/18 0730: Subjective Follow-up For: Sepsis secondary to pneumonia HCAP Pancytopenia MDS Demand ischemia Paroxysmal A. fib now in sinus Tele-Events Since Last Visit: Sinus rhythm Subjective: Patient was seen and examined this morning she is alert awake and oriented to time place and person. No acute events noticed overnight. She is transferred overnight from ICU after managing sepsis and pneumonia. She still continues to report shortness of breath, weakness, fatigue and tired. Denied any fever, chills. She is still requiring nonrebreather mask. Denies any chest pain, palpitations, fever, chills, no changes in bladder or bowel habits. Review of Systems Constitutional: Reports: see HPI. Objective Last 24 Hrs of Vital Signs/I&O Vital Signs Date Time Temp Pulse Resp B/P B/P Pulse O2 O2 Flow FiO2 Mean Ox Delivery Rate 06/28 0913 78 130/66 06/28 0901 95 Nasal 50% Cannula 06/28 0543 97.4 64 18 148/84 94 06/28 0327 92 Nasal 50% Cannula 06/28 0000 50% 06/27 2152 98.0 75 18 142/68 94 06/27 2128 93 Nasal 50% Cannula 06/27 2043 97.5 79 18 148/86 94 06/27 2032 77 20 154/70 06/27 2000 98 Nasal 50% Cannula 06/27 1700 93 Nasal 50% Cannula 06/27 1600 95 Nasal 50% Cannula 06/27 1600 97.8 66 20 140/48 94 Nasal 50% Cannula Intake & Output 06/28 1600 06/28 0800 06/28 0000 Intake Total 440 240 Output Total 600 200 Balance -600 440 40 Intake, Oral 440 240 Output, Stool 200 Output, Urine 600 Patient 107.501 kg Weight Weight Bed scale Measurement Method Physical Exam General Appearance: Alert, Oriented X3, Cooperative, No Acute Distress Other Physical Findings: Head: atraumatic, normal appearance Neck: normal inspection, supple Respiratory: chest non-tender, respiratory distress, scattered rhonchi b/l Cardiovascular: regular rate/rhythm Gastrointestinal: normal bowel sounds, soft, non-tender, no organomegaly, ileostomy noted Extremities: normal inspection, normal capillary refill Current Medications: Current Medications Sig/Dontae Start time Last Medication Dose Route Stop Time Status Admin Acetaminophen 650 MG Q4P PRN 06/26 2145 AC 06/26 PO 2141 Albuterol Sulfate 3 ML TID 06/23 2100 AC 06/28 INH 0858 Amoxicillin/ 875 MG Q12 06/27 1130 DC 06/27 Clavulanate Potassium PO 06/27 Azithromycin 250 MG DAILY 06/27 1130 AC 06/28 PO 0914 Budesonide/ 2 PUF BID 06/23 0900 AC 06/28 Formoterol Fumarate INH 0912 Calcium Carbonate 500 MG BID PRN 06/25 07 AC 06/25 PO 0916 Ceftriaxone Sodium 1,000 MG DAILY 06/26 0900 AC 06/26 IV 1123 Clopidogrel Bisulfate 75 MG DAILY 06/23 0900 AC 06/28 PO 0914 Hydromorphone HCl 4 MG Q4-6 PRN PRN 06/27 1500 AC 06/28 PO 1056 Hydromorphone HCl 2 MG Q4-6 PRN PRN 06/27 1145 DC PO Hydromorphone HCl 1 MG Q4 HRS NEEDED PRN 06/22 2230 AC 06/27 IV 0341 Metoprolol Tartrate 50 MG BID 06/26 0900 AC 06/28 PO 0913 Omeprazole 40 MG DAILY AC 06/25 1033 AC 06/28 PO 0652 Ondansetron HCl 4 MG Q6P PRN 06/22 2230 AC 06/25 IV 0916 Oxycodone HCl 20 MG Q12H 06/22 2300 AC 06/28 PO 1045 Sodium Chloride 1 SPRAY DAILY NEEDED PRN 06/23 204 AC 06/25 CHARLENE 0620 Zolpidem Tartrate 5 MG QPM PRN 06/22 2300 AC 06/26 PO 2308 Last 24 Hrs of Lab/Dar Results Last 24 Hrs of Labs/Mics: Laboratory Tests 06/28/18 0626: Anion Gap 10, Estimated GFR > 60, BUN/Creatinine Ratio 18.0, Magnesium 2.1, CBC w Diff NO MAN DIFF REQ, RBC 2.32 L, MCV 104.6 H, MCH 35.3 H, MCHC 33.8, RDW 23.4 H, MPV 9.4, Gran % 59.8, Lymphocytes % 31.1, Monocytes % 7.2, Eosinophils % 1.7, Basophils % 0.2, Absolute Granulocytes 1.4, Absolute Lymphocytes 0.7 L, Absolute Monocytes 0.2, Absolute Eosinophils 0, Absolute Basophils 0 Assessment/Plan Assessment: This is a 72-year-old woman with a history of hypertension, COPD, on 2 L of oxygen at home, colorectal cancer, treated with neoadjuvant chemoradiation followed by resection and a diverting loop ileostomy, with subsequent reversal but with 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 On admission she was afebrile with an O2 sat of 94% on 3 L. Laboratory data revealed a white blood cell count of 2.1, with 18 bands, H&H 8.8 and 26, platelets 70,000, BUN/creatinine 15 and 0.7, AST ALT 53 and 48, troponin 0.22. Urinalysis 5-10 RBC/15-25 WBCs. Chest x-ray revealed dense consolidation of the left lung base. She was given Vancomycin and Ceftazidime and 1 dose of Solumedrol. On June 23 she was changed to Ceftriaxone and Azithromycin. ON 06/24 she was noted to be more dyspneic and was moved to the ICU. She did report an episode of hemoptysis. She has remained afebrile since admission. CTA of the chest June 24 reveals dense consolidation of the left upper lobe with air bronchograms, with a small left pleural effusion and a trace right pleural effusion Blood cultures x 2 June 22 negative Urine strep pneumo antigen and Legionella antigen June 23 negative ----- Left lower lobe pneumonia, with sepsis. Patient was initially admitted to telemetry for sepsis with the left lower lobe pneumonia, later transferred to ICU for acute dyspnea. She is here for sepsis secondary to left lower lobe pneumonia, healthcare associated. As she is borderline neutropenic, she was covered with vancomycin and ceftaz initially, later switched her to azithromycin and ceftriaxone * Continue azithromycin and ceftriaxone DAY 6 pending ID recommendation * Blood cultures negative * Sputum cultures unable to obtain Acute hypoxemic respiratory failure secondary to pneumonia. Patient has acute hypoxic respiratory failure secondary to sepsis and left lower lobe pneumonia. She was in ICU for increased respiratory distress and work of breathing requiring BiPAP. Transferred to telemetry on 06/27/2018. * Off from BiPAP * Titrate oxygen slowly, on nonrebreather mask * Supplemental oxygen * Total respiratory care * DuO nebs * Titrate oxygen for saturations greater than 92%. * Frequent nebulizer treatments, every 4 hours [id number]. * Spiriva 1 inhalation daily. * Continue Symbicort 2 puffs every 12 hours per. Demand ischemia type II VT in the setting of sepsis Troponins were trended down. She was found to have paroxysmal atrial fibrillation, spontaneous conversion to sinus rhythm. Title Curative Specialist discussed about anticoagulation however she refused. 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 Her medication has been held. Her current counts are: Hb:8.5 WBC:2.1 PLT:74 ANC: 1.4. Heme/Onc is following, recommendations are being followed -Transfuse PLT if <10,000, <20,000 with fever, or <50,000 with bleeding -Transfuse pRBC if Hb <8 -F/u cbc History of COPD, intermittently oxygen dependent, with improved bronchospasm. Previous rectal cancer status post multiple surgical interventions and neoadjuvant chemoradiation. Recent blood loss anemia. Hemoglobin currently stable. Atrial flutter/fibrillation with spontaneous conversion. Patient refused anticoagulation History of hypertension. Chronic pain. DNR/DNI REG DIET DVT PPX-ALPS ONLY GIVEN thrombocytopenia Problem List: 1. Pancytopenia 2. Pneumonia Pain Ratin Pain Location: N/A Pain Goal: Remain pain free Pain Plan: AYUSH SMITH Tomorrow's Labs & Rationales: CBC JOSE Cheatham MD,Vee 06/28/18 1149: Attending MD Review Statement Attending Statement Attending MD Statement: examined this patient, discuss w/resident/PA/EXPANDED DUTY DENTAL ASSISTANT, agreed w/resident/PA/EXPANDED DUTY DENTAL ASSISTANT, reviewed EMR data (avail), discussed with nursing, discussed with case mgmt, reviewed images Attending Assessment/Plan: Patient transferred from the ICU to my care today. This is a 72-year-old female with a past medical history of COPD on home oxygen, myelodysplastic syndrome and rectal CA with an ileostomy. She was admitted to the ICU and treated for a pneumonia with dense consolidation on CT scan. She has pancytopenia and has had intermittent episodes of atrial fibrillation not on anticoagulation per patient' s preference and given the pancytopenia. She got her last dose of IV antibiotics on Thursday and has been switched to by mouth antibiotics as we lost IV access on Thursday. I will talk to ID as she is almost finished 5-6 days of antibiotics. I did speak to Dr. Rosales and if ongoing IV is needed then he would prefer a Port-A-Cath to a PICC line. She still remains on high flow oxygen and we are titrating that. Will have PT work with her and follow closely.
--- NOTE | 2018-06-28 07:35 | PN- Hematology ---
Subjective Subjective: Breathing improved, complaining of pain after multiple attempts at venipuncture/ IV placement 12 point review of systems otherwise nonspecific Objective Vital Signs and I&Os Vital Signs Date Time Temp Pulse Resp B/P B/P Pulse O2 O2 Flow FiO2 Mean Ox Delivery Rate 06/28 0543 97.4 64 18 148/84 94 06/28 0327 92 Nasal 50% Cannula 06/28 0000 50% 06/27 2152 98.0 75 18 142/68 94 06/278 93 Nasal 50% Cannula 06/27 2043 97.5 79 18 148/86 94 06/27 203 77 20 154/70 06/27 2000 98 Nasal 50% Cannula 06/27 1700 93 Nasal 50% Cannula 06/27 1600 95 Nasal 50% Cannula 06/27 1600 97.8 66 20 140/48 94 Nasal 50% Cannula 06/27 1200 95 Nasal 50% Cannula 06/27 0940 94 Nasal 50% Cannula 06/27 0800 94 Nasal 50% Cannula 06/27 0800 96.9 64 20 144/60 94 Nasal 50% Cannula Intake & Output 06/28 0800 06/28 0000 06/27 1600 06/27 0800 06/27 0000 06/26 1600 Intake Total 240 880 100 500 950 Output Total 200 393 541 7103 700 Balance 40 -45 -475 -725 250 Intake, IV 0 250 Intake, Oral 240 880 100 500 700 Output, Stool 200 400 200 900 700 Output, Urine 525 375 325 Gen.: in NAD ENT: Sclera anicteric Chest: Decreased breath sounds Cor: RRR, Abdomen: Soft, bowel sounds present, no tenderness, no rebound Extremities: Without clubbing, cyanosis, or asymmetric edema Neurology: Alert and oriented 3, no gross deficit Current Medications: Current Medications Sig/Dontae Start time Last Medication Dose Route Stop Time Status Admin Acetaminophen 650 MG Q4P PRN 06/26 2145 AC 06/26 PO 214 Albuterol Sulfate 3 ML TID 06/23 2100 06/27 INH 2115 Amoxicillin/ 875 MG Q12 06/27 1130 DC 06/27 Clavulanate Potassium PO 06/27 Azithromycin 250 MG DAILY 06/27 1130 AC 06/27 PO 1247 Azithromycin 500 MG DAILY 06/26 0900 DC 06/26 Sodium Chloride 250 ML IV 0945 Budesonide/ 2 PUF BID 06/23 0900 AC 06/27 Formoterol Fumarate INH 2033 Calcium Carbonate 500 MG BID PRN 06/25 0700 AC 06/25 PO 0916 Ceftriaxone Sodium 1,000 MG DAILY 06/26 0900 AC 06/26 IV 1123 Clopidogrel Bisulfate 75 MG DAILY 06/23 0900 AC 06/27 PO 0943 Hydromorphone HCl 4 MG Q4-6 PRN PRN 06/27 1500 AC 06/28 PO 0653 Hydromorphone HCl 2 MG Q4-6 PRN PRN 06/27 1145 DC PO Hydromorphone HCl 4 MG ONCE ONE 06/27 0945 DC 06/27 PO 06/27 0946 0946 Hydromorphone HCl 1 MG Q4 HRS NEEDED PRN 06/22 2230 AC 06/27 IV 0341 Metoprolol Tartrate 50 MG BID 06/26 0900 AC 06/27 PO 2032 Omeprazole 40 MG DAILY AC 06/25 1033 AC 06/28 PO 0652 Ondansetron HCl 4 MG Q6P PRN 06/22 2230 AC 06/25 IV 0916 Oxycodone HCl 40 MG .STK-MED ONE 06/27 1149 DC PO 06/27 1150 Oxycodone HCl 20 MG Q12H 06/22 2300 AC 06/27 PO 2308 Sodium Chloride 1 SPRAY DAILY NEEDED PRN 06/23 2045 AC 06/25 CHARLENE 0620 Zolpidem Tartrate 5 MG QPM PRN 06/22 2300 AC 06/26 PO 2308 Results Last 24 Hours of Lab Results: Laboratory Tests 06/28 626 Chemistry Sodium Pending Potassium Pending Chloride Pending Carbon Dioxide Pending Anion Gap Pending BUN Pending Creatinine Pending BUN/Creatinine Ratio Pending Magnesium Pending Hematology CBC w Diff Pending WBC Pending RBC Pending Hgb Pending Hct Pending MCV Pending MCH Pending MCHC Pending RDW Pending Plt Count Pending MPV Pending Assessment/Plan Hematology Assessment/Recommendations: 1. MDS-blood counts otherwise unchanged 2. Pneumonia 3. IV access-a PICC line would provide only short-term benefit, consideration should be given to port o cath placement. This needs to be discussed with ID service and patient may need blood product support for this procedure Discussed with patient
[2018-06-28 08:41] LABS: ABSOLUTE BASOPHIL COUNT 0 /CUMM (0.0-0.2); ABSOLUTE EOSINOPHIL COUNT 0 /CUMM (0.0-0.7); ABSOLUTE GRANULOCYTE CT 1.4 /CUMM (1.4-6.5); ABSOLUTE LYMPH COUNT 0.7 /CUMM (1.2-3.4); ABSOLUTE MONOCYTE COUNT 0.2 /CUMM (0.10-0.60); BASOPHIL % 0.2 % (0.0-2.0); EOSINOPHIL % 1.7 % (0-5); GRANULOCYTE % 59.8 % (42.2-75.2); HEMATOCRIT 24.3 % (37-47); MEAN CORPUSCULAR HGB 35.3 PG (27.0-31.0); MEAN CORPUSCULAR HGB CONC 33.8 G/DL (33.0-37.0); MEAN CORPUSCULAR VOLUME 104.6 FL (81.0-99.0); MEAN PLATELET VOLUME 9.4 FL (7.4-10.4); RBC DISTRIBUTION WIDTH 23.4 % (11.5-14.5); RED BLOOD CELL CT 2.32 /CUMM (4.20-5.40); WHITE BLOOD CELL COUNT 2.3 /CUMM (4.8-10.8)
[2018-06-28 09:04] LABS: PLATELET COUNT 81 /CUMM (130-400)
--- NOTE | 2018-06-28 09:20 | PN- Pulmonary ---
Subjective HPI/Critical Care Issues: The patient is awake and alert. She reports feeling markedly improved. She has less shortness of breath. She remains on high flow at 50%. The patient continues to feel fatigued which is an ongoing issue for her. Objective Current Medications: Current Medications Sig/Dontae Start time Last Medication Dose Route Stop Time Status Admin Acetaminophen 650 MG Q4P PRN 06/26 2145 AC 06/26 PO 2141 Albuterol Sulfate 3 ML TID 06/23 2100 AC 06/28 INH 0858 Amoxicillin/ 875 MG Q12 06/27 1130 DC 06/27 Clavulanate Potassium PO 06/27 210 202 Azithromycin 250 MG DAILY 06/27 1130 AC 06/27 PO 1247 Azithromycin 500 MG DAILY 06/26 0900 DC 06/26 Sodium Chloride 250 ML IV 0945 Budesonide/ 2 PUF BID 06/23 0900 AC 06/27 Formoterol Fumarate INH 2033 Calcium Carbonate 500 MG BID PRN 06/25 0700 AC 06/25 PO 0916 Ceftriaxone Sodium 1,000 MG DAILY 06/26 0900 AC 06/26 IV 1123 Clopidogrel Bisulfate 75 MG DAILY 06/23 0900 AC 06/27 PO 0943 Hydromorphone HCl 4 MG Q4-6 PRN PRN 06/27 1500 AC 06/28 PO 0653 Hydromorphone HCl 2 MG Q4-6 PRN PRN 06/27 1145 DC PO Hydromorphone HCl 4 MG ONCE ONE 06/27 0945 DC 06/27 PO 06/27 0946 0946 Hydromorphone HCl 1 MG Q4 HRS NEEDED PRN 06/22 2230 AC 06/27 IV 0341 Metoprolol Tartrate 50 MG BID 06/26 0900 AC 06/27 PO 2032 Omeprazole 40 MG DAILY AC 06/25 1033 AC 06/28 PO 0652 Ondansetron HCl 4 MG Q6P PRN 06/22 2230 AC 06/25 IV 0916 Oxycodone HCl 40 MG .STK-MED ONE 06/27 1149 DC PO 06/27 1150 Oxycodone HCl 20 MG Q12H 06/22 2300 AC 06/27 PO 2308 Sodium Chloride 1 SPRAY DAILY NEEDED PRN 06/23 2045 AC 06/25 CHARLENE 0620 Zolpidem Tartrate 5 MG QPM PRN 06/22 2300 AC 06/26 PO 2308 Vital Signs & I&O Last 24 Hrs of Vitals and I&O: Vital Signs Date Time Temp Pulse Resp B/P B/P Pulse O2 O2 Flow FiO2 Mean Ox Delivery Rate 06/28 0901 95 Nasal 50% Cannula 06/28 0543 97.4 64 18 148/84 94 06/28 0327 92 Nasal 50% Cannula 06/28 0000 50% 06/27 2152 98.0 75 18 142/68 94 06/278 93 Nasal 50% Cannula 06/27 2043 97.5 79 18 148/86 94 06/27 2032 77 20 154/70 06/27 2000 98 Nasal 50% Cannula 06/27 1700 93 Nasal 50% Cannula 06/27 1600 95 Nasal 50% Cannula 06/27 1600 97.8 66 20 140/48 94 Nasal 50% Cannula 06/27 1200 95 Nasal 50% Cannula 06/27 0940 94 Nasal 50% Cannula Intake & Output 06/28 1600 06/28 0800 06/28 0000 Intake Total 440 240 Output Total 200 Balance 440 40 Intake, Oral 440 240 Output, Stool 200 Exam General Appearance: alert, awake, comfortable, no distress Head: atraumatic, normal appearance Neck: normal inspection, supple Respiratory: chest non-tender, respiratory distress, scattered rhonchi b/l Cardiovascular: regular rate/rhythm Gastrointestinal: normal bowel sounds, soft, non-tender, no organomegaly, ileostomy noted Extremities: normal inspection, normal capillary refill Results Last 24 Hrs of Lab Results: Laboratory Tests 06/28/18 0626: Anion Gap 10, Estimated GFR > 60, BUN/Creatinine Ratio 18.0, Magnesium 2.1, CBC w Diff NO MAN DIFF REQ, RBC 2.32 L, MCV 104.6 H, MCH 35.3 H, MCHC 33.8, RDW 23.4 H, MPV 9.4, Gran % 59.8, Lymphocytes % 31.1, Monocytes % 7.2, Eosinophils % 1.7, Basophils % 0.2, Absolute Granulocytes 1.4, Absolute Lymphocytes 0.7 L, Absolute Monocytes 0.2, Absolute Eosinophils 0, Absolute Basophils 0 Impression/Plan Impression/Plan Impression/Plan: 1. Left lower lobe pneumonia, with sepsis. 2. Acute hypoxemic respiratory failure secondary to pneumonia. 3. History of COPD, intermittently oxygen dependent, with improved bronchospasm. 4. Pancytopenia. 5. Myelodysplastic syndrome. 6. Previous rectal cancer status post multiple surgical interventions and neoadjuvant chemoradiation. 7. Recent blood loss anemia. Hemoglobin currently stable. 8. Atrial flutter/fibrillation with spontaneous conversion. 9. Mildly elevated troponin secondary to demand ischemia. 10. History of hypertension. 11. Chronic pain. Recommendations: * Titrate oxygen for saturations greater than 92%. * Frequent nebulizer treatments, every 4 hours [id number]. * Spiriva 1 inhalation daily. * Continue Symbicort 2 puffs every 12 hours per. * Follow-up cultures. * Continue antibiotics as recommended by ID. * Increase activity. * DVT prophylaxis at all times. * Continue all supportive care.
[2018-06-28 13:58] VITALS: BP 148/60
--- NOTE | 2018-06-28 15:50 | PN- Cardiology ---
Subjective Subjective: Patient denies chest pain, palpitations, dyspnea. patient reports that she feels considerably better overall today compared to yesterday. Objective Vital Signs and I&Os Vital Signs Date Time Temp Pulse Resp B/P B/P Pulse O2 O2 Flow FiO2 Mean Ox Delivery Rate 06/28 1358 97.9 74 20 148/60 99 Nasal Cannula 06/28 1338 96 Nasal 45% Cannula 06/28 0913 78 130/66 06/28 0901 95 Nasal 50% Cannula 06/28 0543 97.4 64 18 148/84 94 06/28 0327 92 Nasal 50% Cannula 06/28 0000 50% 06/27 215 98.0 75 18 142/68 94 06/27 2128 93 Nasal 50% Cannula 06/27 2043 97.5 79 18 148/86 94 06/27 2032 77 20 154/70 06/27 2000 98 Nasal 50% Cannula 06/27 1700 93 Nasal 50% Cannula 06/27 1600 95 Nasal 50% Cannula 06/27 1600 97.8 66 20 140/48 94 Nasal 50% Cannula Intake & Output 06/28 1600 06/28 0800 06/28 0000 06/27 1600 06/27 0800 06/27 0000 Intake Total 440 240 880 100 500 Output Total 600 200 097 482 1796 Balance -600 440 40 -45 -475 -725 Intake, IV 0 Intake, Oral 440 240 880 100 500 Output, Stool 200 400 200 900 Output, Urine 600 525 375 325 Patient 107.501 kg Weight Weight Bed scale Measurement Method Physical Exam: General: no apparent distress HEENT: NCAT, NO JVD Heart: s1s2, RRR, no MRG Lungs: CTA b/l Abd: soft, nt Ext: no peripheral edema Current Medications: Current Medications Sig/Dontae Start time Last Medication Dose Route Stop Time Status Admin Acetaminophen 650 MG Q4P PRN 06/26 2145 AC 06/28 PO 1430 Albuterol Sulfate 3 ML TID 06/23 2100 AC 06/28 INH 1336 Amoxicillin/ 875 MG Q12 06/27 1130 DC 06/27 Clavulanate Potassium PO 06/27 Azithromycin 250 MG DAILY 06/27 1130 AC 06/28 PO 0914 Budesonide/ 2 PUF BID 06/23 0900 AC 06/28 Formoterol Fumarate INH 0912 Calcium Carbonate 500 MG BID PRN 06/25 0700 AC 06/25 PO 0916 Ceftriaxone Sodium 1,000 MG DAILY 06/26 0900 AC 06/28 IV 1059 Clopidogrel Bisulfate 75 MG DAILY 06/23 0900 AC 06/28 PO 0914 Hydromorphone HCl 4 MG Q4-6 PRN PRN 06/27 1500 AC 06/28 PO 1056 Hydromorphone HCl 1 MG Q4 HRS NEEDED PRN 06/22 2230 AC 06/28 IV 1455 Metoprolol Tartrate 50 MG BID 06/26 09 AC 06/28 PO 0913 Omeprazole 40 MG DAILY AC 06/25 1033 AC 06/28 PO 0652 Ondansetron HCl 4 MG Q6P PRN 06/22 2230 AC 06/25 IV 0916 Oxycodone HCl 20 MG Q12H 06/22 2300 AC 06/28 PO 1045 Sodium Chloride 1 SPRAY DAILY NEEDED PRN 06/23 2045 AC 06/25 CHARLENE 0620 Tiotropium [place] 1 PUF DAILY 06/28 1217 AC 06/28 INH 1430 Zolpidem Tartrate 5 MG QPM PRN 06/22 2300 AC 06/26 PO 2308 Results Last 48 Hrs of Labs/Mics: Laboratory Tests 06/28/18 0626: Anion Gap 10, Estimated GFR > 60, BUN/Creatinine Ratio 18.0, Magnesium 2.1, CBC w Diff NO MAN DIFF REQ, RBC 2.32 L, MCV 104.6 H, MCH 35.3 H, MCHC 33.8, RDW 23.4 H, MPV 9.4, Gran % 59.8, Lymphocytes % 31.1, Monocytes % 7.2, Eosinophils % 1.7, Basophils % 0.2, Absolute Granulocytes 1.4, Absolute Lymphocytes 0.7 L, Absolute Monocytes 0.2, Absolute Eosinophils 0, Absolute Basophils 0 06/27/18 0410: CBC w Diff MAN DIFF ORDERED, RBC 2.48 L, MCV 104.4 H, MCH 35.2 H, MCHC 33.7, RDW 23.5 H, MPV 9.0, Segmented Neutrophils 48, Lymphocytes 47, Monocytes 2, Eosinophils 3, Platelet Estimate DECREASED, Normochromic RBCs VERIFIED, Poikilocytosis 1+, Basophilic Stippling RARE, Anisocytosis 2+, Macrocytic Cells 2+ Recent Imaging Studies: Telemetry: Personally reviewed, normal sinus rhythm Assessment/Plan Assessment/Plan 1. Pneumonia 2. Minimal troponin elevation likely due to demand ischemia 3. Pancytopenia with history of myelodysplastic syndrome 4. Rectal cancer status post neoadjuvant chemotherapy 5. COPD 6. Hypertension - well controlled Patient's minimal troponin elevation is likely due to demand ischemia in the setting of pneumonia. Can continue on her outpatient Plavix. She may be a candidate for outpatient ischemic testing in the future. Antibiotics per the medical team. Monitor blood pressure. Can continue with metoprolol. She had similar troponin elevation on recent admission and echocardiogram showed no obvious regional wall motion abnormalities. She also had a recent CT angiogram that was negative for pulmonary embolism. Continue telemetry? Yes
--- NOTE | 2018-06-28 15:54 | PN- Infect Dx ---
Subjective Subjective: She reports having less shortness of breath and non productive cough. She has chronic pain however this is not changed. She is afebrile. Poor iv access. Review of Systems Comments: 12 points reviewed as noted, otherwise negative. Objective Last 24 Hrs of Vital Signs/I&O Vital Signs Date Time Temp Pulse Resp B/P B/P Pulse O2 O2 Flow FiO2 Mean Ox Delivery Rate 06/28 1358 97.9 74 20 148/60 99 Nasal Cannula 06/28 1338 96 Nasal 45% Cannula 06/28 0913 78 130/66 06/28 0901 95 Nasal 50% Cannula 06/28 0543 97.4 64 18 148/84 94 06/28 0327 92 Nasal 50% Cannula 06/28 0000 50% 06/27 2152 98.0 75 18 142/68 94 06/27 2128 93 Nasal 50% Cannula 06/27 2043 97.5 79 18 148/86 94 06/27 2032 77 20 154/70 06/27 2000 98 Nasal 50% Cannula 06/27 1700 93 Nasal 50% Cannula 06/27 1600 95 Nasal 50% Cannula 06/27 1600 97.8 66 20 140/48 94 Nasal 50% Cannula Intake & Output 06/28 1600 06/28 0800 06/28 0000 Intake Total 440 240 Output Total 600 200 Balance -600 440 40 Intake, Oral 440 240 Output, Stool 200 Output, Urine 600 Patient 237 lb Weight Weight Bed scale Measurement Method Physical Exam Other Physical Findings: General Appearance: alert, awake, comfortable, no distress Head: atraumatic, normal appearance Neck: normal inspection, supple Respiratory: chest non-tender, respiratory distress, b/l basilar rales Cardiovascular: regular rate/rhythm, no m/r/g auscultated Gastrointestinal: normal bowel sounds, soft, non-tender, no organomegaly, ileostomy noted Extremities: normal inspection, normal capillary refill Results Last 24 Hours of Lab Results: Laboratory Tests 06/28 06 Chemistry Sodium (137 - 145 mmol/L) 141 Potassium (3.5 - 5.1 mmol/L) 3.9 Chloride (98 - 107 mmol/L) 102 Carbon Dioxide (22 - 30 mmol/L) 29 Anion Gap (5 - 16) 10 BUN (7 - 17 mg/dL) 9 Creatinine (0.5 - 1.0 mg/dL) 0.5 Estimated GFR (>60 ml/min) > 60 BUN/Creatinine Ratio (7 - 25 %) 18.0 Magnesium (1.6 - 2.3 mg/dL) 2.1 Hematology CBC w Diff NO MAN DIFF REQ WBC (4.8 - 10.8 /CUMM) 2.3 L RBC (4.20 - 5.40 /CUMM) 2.32 L Hgb (12.0 - 16.0 G/DL) 8.2 L Hct (37 - 47 %) 24.3 L MCV (81.0 - 99.0 FL) 104.6 H MCH (27.0 - 31.0 PG) 35.3 H MCHC (33.0 - 37.0 G/DL) 33.8 RDW (11.5 - 14.5 %) 23.4 H Plt Count (130 - 400 /CUMM) 81 L MPV (7.4 - 10.4 FL) 9.4 Gran % (42.2 - 75.2 %) 59.8 Lymphocytes % (20.5 - 51.1 %) 31.1 Monocytes % (1.7 - 9.3 %) 7.2 Eosinophils % (0 - 5 %) 1.7 Basophils % (0.0 - 2.0 %) 0.2 Absolute Granulocytes (1.4 - 6.5 /CUMM) 1.4 Absolute Lymphocytes (1.2 - 3.4 /CUMM) 0.7 L Absolute Monocytes (0.10 - 0.60 /CUMM) 0.2 Absolute Eosinophils (0.0 - 0.7 /CUMM) 0 Absolute Basophils (0.0 - 0.2 /CUMM) 0 Last 24 Hours of Dar Results: SPEC #: [id number] MARIANNE: 06/24/18 STATUS: COMP RECD: 06/24/181356 SUBM DR: Mily CONNER,Everardo SOURCE: UPPER RESP ENTR: 06/24/[address]: Mily CONNER,Everardo SPDESC: STEFANO Lock MD,Benson Walters MD,Analia Hooker ORDERED: ACT SURV NARES Procedure Result > ACTIVE SURVEILLANCE CULTURE Final 06/26/18 NO METHICILLIN RESISTANT STAPH AUREUS ISOLATED Recent Imaging Studies: CXR IMPRESSION: Persistent lingular and left lower lobe consolidation. It is unchanged to CT chest 06/24/2018. DICTATED BY: Gila CONNER,Anders DATE/TIME DICTATED:06/27/18850 MALE MODEL:JESENIA DATE/TIME TRANSCRIBED:06/27/18850 Assessment/Plan ID Impression: 72 year-old woman with a history of COPD, on 2 L of oxygen at home, and myelodysplastic syndrome, diagnosed over 6 months prior to admission, treated with Revlimid until recently, last hospitalized 2 weeks prior to admission with anemia and shortness of breath, requiring 2 units of blood, readmitted on June 22 with a two-day history of low-grade fevers, chills, sweats, nausea with dry heaves, weakness, headaches, body aches and increasing shortness of breath, found to be afebrile with pancytopenia and with imaging revealing dense consolidation in the left lung. Suggestion: 1. Somewhat improved, with decreased shortness of breath and decreased oxygen requirements, on Ceftriaxone (given via peripheral iv) and Azithromycin, now Day 6/7-8 of treatment for CAP. 2. Monitor CBC. She remains pancytopenic secondary to her myelodysplastic syndrome; therefore her white blood cell count is not a useful parameter to follow; trending procal level can be useful if reporting time for this test 24- 48 h. 3. F/U Pulmonary recom.
[2018-06-28 22:30] VITALS: BP 148/80
[2018-06-29 06:17] VITALS: BP 150/86
--- NOTE | 2018-06-29 07:18 | PN- Housestaff ---
Mike López 06/29/18 0718: Subjective Follow-up For: Sepsis secondary to pneumonia HCAP Pancytopenia MDS Demand ischemia Paroxysmal A. fib now in sinus Complaints: no complaints Tele-Events Since Last Visit: Sinus rhythm Subjective: Patient was seen and examined this morning she is alert awake and oriented to time place and person. No acute events noticed overnight. She is transferred from ICU after managing sepsis and pneumonia. She still continues to report shortness of breath, weakness, fatigue and tired. Denied any fever, chills. She is still requiring nonrebreather mask. SHe is in telemetry floor for continuous pulse ox monitor Denies any chest pain, palpitations, fever, chills, no changes in bladder or bowel habits. Review of Systems Constitutional: Reports: see HPI. Objective Last 24 Hrs of Vital Signs/I&O Vital Signs Date Time Temp Pulse Resp B/P B/P Pulse O2 O2 Flow FiO2 Mean Ox Delivery Rate 06/29 1008 94 Nasal 8L Cannula 06/29 0934 73 170/76 06/29 0617 97.7 70 22 150/86 95 Non ReBreather 06/29 0110 96 Nasal 45% Cannula 06/29 0000 94 Nasal 50% Cannula 06/28 2230 98.1 69 20 148/80 94 Nasal Cannula 06/28 2156 94 Nasal 45% Cannula 06/28 2111 94 148/80 06/28 1930 93 Nasal 45% Cannula 06/28 1654 93 Nasal 45% Cannula 06/28 1358 97.9 74 20 148/60 99 Nasal Cannula 06/28 1338 96 Nasal 45% Cannula Intake & Output 06/29 1600 06/29 0800 06/29 0000 Intake Total 120 120 Output Total 850 1 Balance -730 119 Intake, Oral 120 120 Number 1 Bowel Movements Output, Stool 1 Output, Urine 850 Patient 110.308 kg Weight Physical Exam General Appearance: Alert, Oriented X3, Cooperative, No Acute Distress Other Physical Findings: Head: atraumatic, normal appearance Neck: normal inspection, supple Respiratory: chest non-tender, respiratory distress, scattered rhonchi b/l Cardiovascular: regular rate/rhythm Gastrointestinal: normal bowel sounds, soft, non-tender, no organomegaly, ileostomy noted Extremities: normal inspection, normal capillary refill Current Medications: Current Medications Sig/Dontae Start time Last Medication Dose Route Stop Time Status Admin Acetaminophen 650 MG .STK-MED ONE 06/29 0055 DC PO 06/29 0056 Acetaminophen 650 MG .STK-MED ONE 06/28 1833 DC PO 06/28 1834 Acetaminophen 650 MG .STK-MED ONE 06/28 1428 DC PO 06/28 1429 Acetaminophen 650 MG Q4P PRN 06/26 2145 AC 06/29 PO 0057 Albuterol Sulfate 3 ML TID 06/23 2100 AC 06/29 INH 1002 Azithromycin 250 MG DAILY 06/27 1130 AC 06/29 PO 0931 Budesonide/ 2 PUF BID 06/23 0900 AC 06/29 Formoterol Fumarate INH 0931 Calcium Carbonate 500 MG BID PRN 06/25 0700 AC 06/25 PO 0916 Ceftriaxone Sodium 1,000 MG DAILY 06/26 0900 AC 06/29 IV 0920 Clopidogrel Bisulfate 75 MG DAILY 06/23 0900 AC 06/29 PO 0932 Hydromorphone HCl 4 MG Q4-6 PRN PRN 06/27 1500 AC 06/28 PO 1056 Hydromorphone HCl 1 MG Q4 HRS NEEDED PRN 06/22 2230 AC 06/29 IV 0918 Metoprolol Tartrate 50 MG BID 06/26 0900 AC 06/29 PO 0934 Omeprazole 40 MG DAILY AC 06/25 1033 AC 06/29 PO 0526 Ondansetron HCl 4 MG Q6P PRN 06/22 2230 AC 06/25 IV 0916 Oxycodone HCl 20 MG Q12H 06/22 2300 AC 06/29 PO 0938 Sodium Chloride 1 SPRAY DAILY NEEDED PRN 06/23 2045 AC 06/25 CHARLENE 0620 Tiotropium [place] 1 PUF DAILY 06/28 1217 AC 06/29 INH 0931 Zolpidem Tartrate 5 MG QPM PRN 06/22 2300 AC 06/28 PO 2302 Last 24 Hrs of Lab/Dar Results Last 24 Hrs of Labs/Mics: Laboratory Tests 06/29/18 0745: Anion Gap 9, Estimated GFR > 60, BUN/Creatinine Ratio 18.3, CBC w Diff MAN DIFF ORDERED, WBC Pending, RBC Pending, Hgb Pending, Hct Pending, MCV Pending, MCH Pending, MCHC Pending, RDW Pending, Plt Count Pending, MPV Pending, Gran % Pending, Lymphocytes % Pending, Monocytes % Pending, Eosinophils % Pending, Basophils % Pending, Absolute Granulocytes Pending, Segmented Neutrophils Pending, Absolute Lymphocytes Pending, Absolute Monocytes Pending, Absolute Eosinophils Pending, Absolute Basophils Pending Assessment/Plan Assessment: This is a 72-year-old woman with a history of hypertension, COPD, on 2 L of oxygen at home, colorectal cancer, treated with neoadjuvant chemoradiation followed by resection and a diverting loop ileostomy, with subsequent reversal but with 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 On admission she was afebrile with an O2 sat of 94% on 3 L. Laboratory data revealed a white blood cell count of 2.1, with 18 bands, H&H 8.8 and 26, platelets 70,000, BUN/creatinine 15 and 0.7, AST ALT 53 and 48, troponin 0.22. Urinalysis 5-10 RBC/15-25 WBCs. Chest x-ray revealed dense consolidation of the left lung base. She was given Vancomycin and Ceftazidime and 1 dose of Solumedrol. On June 23 she was changed to Ceftriaxone and Azithromycin. ON 06/24 she was noted to be more dyspneic and was moved to the ICU. She did report an episode of hemoptysis. She has remained afebrile since admission. CTA of the chest June 24 reveals dense consolidation of the left upper lobe with air bronchograms, with a small left pleural effusion and a trace right pleural effusion Blood cultures x 2 June 22 negative Urine strep pneumo antigen and Legionella antigen June 23 negative ----- Left lower lobe pneumonia, with sepsis. Patient was initially admitted to telemetry for sepsis with the left lower lobe pneumonia, later transferred to ICU for acute dyspnea. She is here for sepsis secondary to left lower lobe pneumonia, healthcare associated. As she is borderline neutropenic, she was covered with vancomycin and ceftaz initially, later switched her to azithromycin and ceftriaxone * Continue azithromycin and ceftriaxone DAY 7. * Blood cultures negative. * Sputum cultures unable to obtain. * Afebrile, leukopenia Acute hypoxemic respiratory failure secondary to pneumonia. Patient has acute hypoxic respiratory failure secondary to sepsis and left lower lobe pneumonia. She was in ICU for increased respiratory distress and work of breathing requiring BiPAP. Transferred to telemetry on 06/27/2018. * Off from BiPAP * Titrate oxygen slowly, on nonrebreather mask * Continuous pulse OXIMETRY * Total respiratory care * DuO nebs * Titrate oxygen for saturations greater than 92%. * Frequent nebulizer treatments, every 4 hours [id number]. * Spiriva 1 inhalation daily. * Continue Symbicort 2 puffs every 12 hours per. Demand ischemia in the setting of sepsis Troponins were trended down. She was found to have paroxysmal atrial fibrillation, spontaneous conversion to sinus rhythm. Gravity Flow Irrigator discussed about anticoagulation however she refused. 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 Her medication has been held. Her current counts are: Hb:8.5 WBC:2.1 PLT:74 ANC: 1.4. Heme/Onc is following, recommendations are being followed -Transfuse PLT if <10,000, <20,000 with fever, or <50,000 with bleeding -Transfuse pRBC if Hb <8 -F/u cbc History of COPD, intermittently oxygen dependent, with improved bronchospasm. Previous rectal cancer status post multiple surgical interventions and neoadjuvant chemoradiation. Recent blood loss anemia. Hemoglobin currently stable. paroxysmal Atrial fibrillation with spontaneous conversion. Patient refused anticoagulation History of hypertension. Chronic pain. DNR/DNI REG DIET DVT PPX-ALPS ONLY GIVEN thrombocytopenia Problem List: 1. Pancytopenia 2. Pneumonia Pain Ratin Pain Location: N/A Pain Goal: Remain pain free Pain Plan: AYUSH SMITH Tomorrow's Labs & Rationales: NONE Vee Cheatham MD 06/29/18 1124: Attending MD Review Statement Attending Statement Attending MD Statement: examined this patient, discuss w/resident/PA/MEDICAL DIR, agreed w/resident/PA/MEDICAL DIR, reviewed EMR data (avail), discussed with nursing, discussed with case mgmt, reviewed images Attending Assessment/Plan: Patient is very upset about the blood draws in the IV. She has very poor IV access and the IV nurse managed to get an IV for 3 more days of antibiotics as recommended by ID. She has profound pancytopenia secondary to myelodysplastic syndrome and is here with acute respiratory failure on high flow oxygen and IV antibiotics. We will put in a PT eval, get her out of bed. I explained to her at length that if she loses this IV access and will have to do a Port-A-Cath as recommended by hematology.
--- NOTE | 2018-06-29 07:49 | PN- Hematology ---
Subjective Subjective: She feels that her breathing is better. She denies any fever or chills. She has no new pain. She denies any nausea or vomiting. She is unhappy with having multiple phlebotomy and IV attempts on her. She states she has a lot of pain with them. She is slowly improving otherwise. She was able to sit up in the recliner yesterday. She remains on high flow oxygen. Review of Systems: Constitutional: Reports: weakness. Denies: fever. Cardiovascular: Denies: chest pain. Respiratory: Reports: short of breath, improving. Denies: cough, hemoptysis. GI: Denies: abdominal pain, constipation, diarrhea. Neurological/Psychological: Reports: anxiety. Musculoskeletal: Reports: right arm pain Hematologic/Endocrine: Denies: bleeding. Reports: bruising from IV/phleb All Other Systems: Reviewed and Negative Objective Vital Signs and I&Os Vital Signs Date Time Temp Pulse Resp B/P B/P Pulse O2 O2 Flow FiO2 Mean Ox Delivery Rate 06/29 0617 97.7 70 22 150/86 95 Non ReBreather 06/29 0110 96 Nasal 45% Cannula 06/29 0000 94 Nasal 50% Cannula 06/28 2230 98.1 69 20 148/80 94 Nasal Cannula 06/28 2156 94 Nasal 45% Cannula 06/28 2111 94 148/80 06/28 1930 93 Nasal 45% Cannula 06/28 1654 93 Nasal 45% Cannula 06/28 1358 97.9 74 20 148/60 99 Nasal Cannula 06/28 1338 96 Nasal 45% Cannula 06/28 0913 78 130/66 06/28 0901 95 Nasal 50% Cannula 06/28 0800 94 Nasal 50% Cannula Intake & Output 06/29 0800 06/29 0000 06/28 1600 06/28 0800 06/28 0000 06/27 1600 Intake Total 405 317 7459 440 240 880 Output Total 850 1 1400 200 925 Balance -730 119 -400 440 40 -45 Intake, IV 0 Intake, Oral 024 122 1484 440 240 880 Number 1 2 Bowel Movements Output, Stool 1 200 400 Output, Urine 850 1400 525 Patient 110.308 kg 107.501 kg Weight Weight Bed scale Measurement Method Physical Exam: General Appearance: well developed/nourished, no apparent distress, alert, awake , comfortable, obese Head: normal appearance Respiratory: chest non-tender, no respiratory distress, quiet respiration, decrease breath sound LLL, HFNC Cardiovascular: regular rate/rhythm Gastrointestinal: soft, non-tender, no organomegaly Extremities: no edema Neurologic/Psych: awake, alert, oriented x 3 Cranial Nerves: normal speech Skin: cool and dry, scattered ecchymoses in the upper extremity. Lymphatic: no anterior cervical pricilla Current Medications: Current Medications Sig/Dontae Start time Last Medication Dose Route Stop Time Status Admin Acetaminophen 650 MG .STK-MED ONE 06/28 1833 DC PO 06/28 1834 Acetaminophen 650 MG .STK-MED ONE 06/28 1428 DC PO 06/28 1429 Acetaminophen 650 MG Q4P PRN 06/26 2145 AC 06/29 PO 0057 Albuterol Sulfate 3 ML TID 06/23 2100 AC 06/28 INH 1930 Azithromycin 250 MG DAILY 06/27 1130 AC 06/28 PO 0914 Budesonide/ 2 PUF BID 06/23 0900 AC 06/28 Formoterol Fumarate INH 2108 Calcium Carbonate 500 MG BID PRN 06/25 07 AC 06/25 PO 0916 Ceftriaxone Sodium 1,000 MG DAILY 06/26 0900 AC 06/28 IV 1059 Clopidogrel Bisulfate 75 MG DAILY 06/23 0900 AC 06/28 PO 0914 Hydromorphone HCl 4 MG Q4-6 PRN PRN 06/27 1500 AC 06/28 PO 1056 Hydromorphone HCl 1 MG Q4 HRS NEEDED PRN 06/22 2230 AC 06/29 IV 0404 Metoprolol Tartrate 50 MG BID 06/26 0900 AC 06/28 PO 2111 Omeprazole 40 MG DAILY AC 06/25 1033 AC 06/29 PO 0526 Ondansetron HCl 4 MG Q6P PRN 06/22 2230 AC 06/25 IV 0916 Oxycodone HCl 20 MG Q12H 06/22 2300 AC 06/28 PO 2259 Sodium Chloride 1 SPRAY DAILY NEEDED PRN 06/23 2045 AC 06/25 CHARLENE 0620 Tiotropium [place] 1 PUF DAILY 06/28 1217 AC 06/28 INH 1430 Zolpidem Tartrate 5 MG QPM PRN 06/22 2300 AC 06/28 PO 2302 Assessment/Plan Hematology Assessment/Recommendations: Ms. 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 Her presentation was concerning for infectious etiology. She does have likely left lower lobe pneumonia. UA is also concerning for UTI but may be colonization. She is currently on antibiotics and is being followed by ID. IV access has been an issue for her. She may need a line for antibiotics. If IV access is needed, port would be better for her in the skilled nursing. Given her infection, ID should be contacted to discuss prior to port placement. For her MDS, she may be monitored for now. She may be transfused as needed. She is hesistant on more therapy. She will need to follow up as outpatient to further discuss. Pneumonia: -continue current antibiotics as per ID/primary -taper oxygen as tolerated -for IV access: would prefer port over PICC if needed (please discuss with ID prior, in setting of infection from PNA_ Pancytopenia: -transfuse with platelet if <10,000, <20,000 with fever, or <50,000 with bleeding -transfuse with pRBC if hgb <8 -may need repeat bone marrow in the future MDS: -continue to hold lenalidomide -follow up as outpatient Please call [phone] with any questions or concerns. Problem List: 1. Pancytopenia 2. Pneumonia 3. MDS (myelodysplastic syndrome) with 5q deletion
[2018-06-29 08:48] LABS: ABSOLUTE BASOPHIL COUNT 0 /CUMM (0.0-0.2); ABSOLUTE EOSINOPHIL COUNT 0 /CUMM (0.0-0.7); ABSOLUTE GRANULOCYTE CT 1.3 /CUMM (1.4-6.5); ABSOLUTE LYMPH COUNT 1.7 /CUMM (1.2-3.4); ABSOLUTE MONOCYTE COUNT 0.2 /CUMM (0.10-0.60); BASOPHIL % 0 % (0.0-2.0); EOSINOPHIL % 0.9 % (0-5); GRANULOCYTE % 40.6 % (42.2-75.2); HEMATOCRIT 25.3 % (37-47); MEAN CORPUSCULAR HGB 35.2 PG (27.0-31.0); MEAN CORPUSCULAR HGB CONC 33.6 G/DL (33.0-37.0); MEAN CORPUSCULAR VOLUME 104.7 FL (81.0-99.0); MEAN PLATELET VOLUME 8.6 FL (7.4-10.4); PLATELET COUNT 94 /CUMM (130-400); RBC DISTRIBUTION WIDTH 23.2 % (11.5-14.5); RED BLOOD CELL CT 2.41 /CUMM (4.20-5.40); WHITE BLOOD CELL COUNT 3.3 /CUMM (4.8-10.8)
--- NOTE | 2018-06-29 10:01 | PN- Pulmonary ---
Subjective HPI/Critical Care Issues: The patient is awake and alert. She reports feeling slightly improved. She continues to be fatigued. She is less short of breath. She still has a slight congested cough. Her oxygen requirement is down to 45%. Objective Current Medications: Current Medications Sig/Dontae Start time Last Medication Dose Route Stop Time Status Admin Acetaminophen 650 MG .STK-MED ONE 06/29 0055 DC PO 06/29 0056 Acetaminophen 650 MG .STK-MED ONE 06/28 1833 DC PO 06/28 1834 Acetaminophen 650 MG .STK-MED ONE 06/28 1428 DC PO 06/28 1429 Acetaminophen 650 MG Q4P PRN 06/26 2145 AC 06/29 PO 0057 Albuterol Sulfate 3 ML TID 06/23 2100 AC 06/28 INH 1930 Azithromycin 250 MG DAILY 06/27 1130 AC 06/29 PO 0931 Budesonide/ 2 PUF BID 06/23 0900 AC 06/29 Formoterol Fumarate INH 0931 Calcium Carbonate 500 MG BID PRN 06/25 0700 AC 06/25 PO 0916 Ceftriaxone Sodium 1,000 MG DAILY 06/26 0900 AC 06/29 IV 0920 Clopidogrel Bisulfate 75 MG DAILY 06/23 0900 AC 06/29 PO 0932 Hydromorphone HCl 4 MG Q4-6 PRN PRN 06/27 1500 AC 06/28 PO 1056 Hydromorphone HCl 1 MG Q4 HRS NEEDED PRN 06/22 2230 AC 06/29 IV 0918 Metoprolol Tartrate 50 MG BID 06/26 0900 AC 06/29 PO 0934 Omeprazole 40 MG DAILY AC 06/25 1033 AC 06/29 PO 0526 Ondansetron HCl 4 MG Q6P PRN 06/22 2230 AC 06/25 IV 0916 Oxycodone HCl 20 MG Q12H 06/22 2300 AC 06/29 PO 0938 Sodium Chloride 1 SPRAY DAILY NEEDED PRN 06/23 2045 AC 06/25 CHARLENE 0620 Tiotropium [place] 1 PUF DAILY 06/28 1217 AC 06/29 INH 0931 Zolpidem Tartrate 5 MG QPM PRN 06/22 2300 AC 06/28 PO 2302 Vital Signs & I&O Last 24 Hrs of Vitals and I&O: Vital Signs Date Time Temp Pulse Resp B/P B/P Pulse O2 O2 Flow FiO2 Mean Ox Delivery Rate 06/29 0934 73 170/76 06/29 0617 97.7 70 22 150/86 95 Non ReBreather 06/29 0110 96 Nasal 45% Cannula 06/29 0000 94 Nasal 50% Cannula 06/28 2230 98.1 69 20 148/80 94 Nasal Cannula 06/28 2156 94 Nasal 45% Cannula 06/28 2111 94 148/80 06/28 1930 93 Nasal 45% Cannula 06/28 1654 93 Nasal 45% Cannula 06/28 1358 97.9 74 20 148/60 99 Nasal Cannula 06/28 1338 96 Nasal 45% Cannula Intake & Output 06/29 1600 06/29 0800 06/29 0000 Intake Total 120 120 Output Total 850 1 Balance -730 119 Intake, Oral 120 120 Number 1 Bowel Movements Output, Stool 1 Output, Urine 850 Patient 243 lb Weight Exam General Appearance: alert, awake, comfortable, no distress Head: atraumatic, normal appearance Neck: normal inspection, supple Respiratory: chest non-tender, respiratory distress, scattered rhonchi b/l Cardiovascular: regular rate/rhythm Gastrointestinal: normal bowel sounds, soft, non-tender, no organomegaly, ileostomy noted Extremities: normal inspection, normal capillary refill Impression/Plan Impression/Plan Impression/Plan: 1. Left lower lobe pneumonia, with sepsis. 2. Acute hypoxemic respiratory failure secondary to pneumonia. 3. History of COPD, intermittently oxygen dependent, with improved bronchospasm. 4. Pancytopenia. 5. Myelodysplastic syndrome. 6. Previous rectal cancer status post multiple surgical interventions and neoadjuvant chemoradiation. 7. Recent blood loss anemia. Hemoglobin currently stable. 8. Atrial flutter/fibrillation with spontaneous conversion. 9. Mildly elevated troponin secondary to demand ischemia. 10. History of hypertension. 11. Chronic pain. Recommendations: * Titrate oxygen for saturations greater than 92%. * Continue nebs/TRC. * Spiriva 1 inhalation daily. * Continue Symbicort 2 puffs every 12 hours per. * Follow-up cultures. * Continue antibiotics as recommended by ID. * Increase activity. * DVT prophylaxis at all times. * Continue all supportive care.
--- NOTE | 2018-06-29 10:04 | PN- Cardiology ---
Subjective Subjective: Patient states that she feels better today. She is less dyspneic. Review of Systems: Eyes no blurred or double vision Ears no deafness or ringing Nose and throat no recurrent sinusitis Lungs per history of present illness Heart per history of present illness Abdomen no nausea vomiting Musculoskeletal occasional muscle and joint pains Psych no anxiety or depression Neuro without recurrent headache or seizures Endocrine no heat or cold intolerance Objective Vital Signs and I&Os Vital Signs Date Time Temp Pulse Resp B/P B/P Pulse O2 O2 Flow FiO2 Mean Ox Delivery Rate 06/29 0934 73 170/76 06/29 0617 97.7 70 22 150/86 95 Non ReBreather 06/29 0110 96 Nasal 45% Cannula 06/29 0000 94 Nasal 50% Cannula 06/28 2230 98.1 69 20 148/80 94 Nasal Cannula 06/28 2156 94 Nasal 45% Cannula 06/28 2111 94 148/80 06/28 1930 93 Nasal 45% Cannula 06/28 1654 93 Nasal 45% Cannula 06/28 1358 97.9 74 20 148/60 99 Nasal Cannula 06/28 1338 96 Nasal 45% Cannula Intake & Output 06/29 1600 06/29 0800 06/29 0000 06/28 1600 06/28 0800 06/28 0000 Intake Total 256 390 0789 440 240 Output Total 850 1 1400 200 Balance -730 119 -400 440 40 Intake, Oral 550 684 8048 440 240 Number 1 2 Bowel Movements Output, Stool 1 200 Output, Urine 850 1400 Patient 243 lb 237 lb Weight Weight Bed scale Measurement Method Physical Exam: Patient is a well-developed well-nourished female appearing in no acute distress HEENT is unremarkable Neck is supple there is no JVD Lungs are clear Heart regular rhythm S1 and S2 are normal no murmurs gallops or rubs Abdomen bowel sounds positive Extremities without edema Skin no lesions Lymph no adenopathy Neuro without focal deficits Current Medications: Current Medications Sig/Dontae Start time Last Medication Dose Route Stop Time Status Admin Acetaminophen 650 MG .STK-MED ONE 06/29 0055 DC PO 06/29 0056 Acetaminophen 650 MG .STK-MED ONE 06/28 1833 DC PO 06/28 1834 Acetaminophen 650 MG .STK-MED ONE 06/28 1428 DC PO 06/28 1429 Acetaminophen 650 MG Q4P PRN 06/26 2145 AC 06/29 PO 0057 Albuterol Sulfate 3 ML TID 06/23 2100 AC 06/29 INH 1002 Azithromycin 250 MG DAILY 06/27 1130 AC 06/29 PO 0931 Budesonide/ 2 PUF BID 06/23 0900 AC 06/29 Formoterol Fumarate INH 0931 Calcium Carbonate 500 MG BID PRN 06/25 0700 AC 06/25 PO 0916 Ceftriaxone Sodium 1,000 MG DAILY 06/26 0900 AC 06/29 IV 0920 Clopidogrel Bisulfate 75 MG DAILY 06/23 0900 AC 06/29 PO 0932 Hydromorphone HCl 4 MG Q4-6 PRN PRN 06/27 1500 AC 06/28 PO 1056 Hydromorphone HCl 1 MG Q4 HRS NEEDED PRN 06/22 2230 AC 06/29 IV 0918 Metoprolol Tartrate 50 MG BID 06/26 09 AC 06/29 PO 0934 Omeprazole 40 MG DAILY AC 06/25 1033 AC 06/29 PO 0526 Ondansetron HCl 4 MG Q6P PRN 06/22 2230 AC 06/25 IV 0916 Oxycodone HCl 20 MG Q12H 06/22 2300 AC 06/29 PO 0938 Sodium Chloride 1 SPRAY DAILY NEEDED PRN 06/23 2045 AC 06/25 CHARLENE 0620 Tiotropium [place] 1 PUF DAILY 06/28 1217 AC 06/29 INH 0931 Zolpidem Tartrate 5 MG QPM PRN 06/22 2300 AC 06/28 PO 2302 Results Last 48 Hrs of Labs/Mics: Laboratory Tests 06/29/18 0745: Anion Gap 9, Estimated GFR > 60, BUN/Creatinine Ratio 18.3, CBC w Diff MAN DIFF ORDERED, WBC Pending, RBC Pending, Hgb Pending, Hct Pending, MCV Pending, MCH Pending, MCHC Pending, RDW Pending, Plt Count Pending, MPV Pending, Gran % Pending, Lymphocytes % Pending, Monocytes % Pending, Eosinophils % Pending, Basophils % Pending, Absolute Granulocytes Pending, Segmented Neutrophils Pending, Absolute Lymphocytes Pending, Absolute Monocytes Pending, Absolute Eosinophils Pending, Absolute Basophils Pending 06/28/18 0626: Anion Gap 10, Estimated GFR > 60, BUN/Creatinine Ratio 18.0, Magnesium 2.1, CBC w Diff NO MAN DIFF REQ, RBC 2.32 L, MCV 104.6 H, MCH 35.3 H, MCHC 33.8, RDW 23.4 H, MPV 9.4, Gran % 59.8, Lymphocytes % 31.1, Monocytes % 7.2, Eosinophils % 1.7, Basophils % 0.2, Absolute Granulocytes 1.4, Absolute Lymphocytes 0.7 L, Absolute Monocytes 0.2, Absolute Eosinophils 0, Absolute Basophils 0 Telemetry personally reviewed sinus rhythm one 4 beat run of nonsustained ventricular tachycardia Assessment/Plan Assessment/Plan 1. Pneumonia with sepsis improved 2. Minimal troponin elevation likely due to demand ischemia 3. Pancytopenia with history of myelodysplastic syndrome 4. Rectal cancer status post neoadjuvant chemotherapy 5. COPD 6. Hypertension stable 7. Paroxysmal atrial fibrillation flutter; new onset in the setting of pneumonia with spontaneous conversion to sinus rhythm; not on anticoagulation due to patient preference and pancytopenia Recommendations 1. Continue current medications 2. Patient will require ischemic workup as an outpatient when she is stabilized 3. Continue antibiotics Continue telemetry? Yes
--- NOTE | 2018-06-29 12:12 | PN- Infect Dx ---
Subjective Subjective: She reports feeling better; less fatigued and short of breath. Persistent congested cough. Her oxygen requirement is down to 45%. Review of Systems Comments: 12 points reviewed as noted, otherwise negative. Objective Last 24 Hrs of Vital Signs/I&O Vital Signs Date Time Temp Pulse Resp B/P B/P Pulse O2 O2 Flow FiO2 Mean Ox Delivery Rate 06/29 1008 94 Nasal 8L Cannula 06/29 0934 73 170/76 06/29 0800 97 Nasal 50% Cannula 06/29 0617 97.7 70 22 150/86 95 Non ReBreather 06/29 0110 96 Nasal 45% Cannula 06/29 0000 94 Nasal 50% Cannula 06/28 2230 98.1 69 20 148/80 94 Nasal Cannula 06/28 2156 94 Nasal 45% Cannula 06/28 2111 94 148/80 06/28 1930 93 Nasal 45% Cannula 06/28 1654 93 Nasal 45% Cannula 06/28 1358 97.9 74 20 148/60 99 Nasal Cannula 06/28 1338 96 Nasal 45% Cannula Intake & Output 06/29 1600 06/29 0800 06/29 0000 Intake Total 120 120 Output Total 850 1 Balance -730 119 Intake, Oral 120 120 Number 1 Bowel Movements Output, Stool 1 Output, Urine 850 Patient 243 lb Weight Physical Exam Other Physical Findings: General Appearance: alert, awake, comfortable, no distress Head: atraumatic, normal appearance Neck: normal inspection, supple Respiratory: chest non-tender, no respiratory distress, no rales, improved inspiratory effort from previous day Cardiovascular: regular rate/rhythm, no m/r/g auscultated Gastrointestinal: normal bowel sounds, soft, non-tender, no organomegaly, ileostomy in place Extremities: normal inspection, normal capillary refill Results Last 24 Hours of Lab Results: Laboratory Tests 06/29 0745 Chemistry Sodium (137 - 145 mmol/L) 142 Potassium (3.5 - 5.1 mmol/L) 4.3 Chloride (98 - 107 mmol/L) 104 Carbon Dioxide (22 - 30 mmol/L) 29 Anion Gap (5 - 16) 9 BUN (7 - 17 mg/dL) 11 Creatinine (0.5 - 1.0 mg/dL) 0.6 Estimated GFR (>60 ml/min) > 60 BUN/Creatinine Ratio (7 - 25 %) 18.3 Hematology CBC w Diff MAN DIFF ORDERED WBC (4.8 - 10.8 /CUMM) Pending RBC (4.20 - 5.40 /CUMM) Pending Hgb (12.0 - 16.0 G/DL) Pending Hct (37 - 47 %) Pending MCV (81.0 - 99.0 FL) Pending MCH (27.0 - 31.0 PG) Pending MCHC (33.0 - 37.0 G/DL) Pending RDW (11.5 - 14.5 %) Pending Plt Count (130 - 400 /CUMM) Pending MPV (7.4 - 10.4 FL) Pending Gran % (42.2 - 75.2 %) Pending Lymphocytes % (20.5 - 51.1 %) Pending Monocytes % (1.7 - 9.3 %) Pending Eosinophils % (0 - 5 %) Pending Basophils % (0.0 - 2.0 %) Pending Absolute Granulocytes (1.4 - 6.5 /CUMM) Pending Segmented Neutrophils (42.2 - 75.2 %) Pending Absolute Lymphocytes (1.2 - 3.4 /CUMM) Pending Absolute Monocytes (0.10 - 0.60 /CUMM) Pending Absolute Eosinophils (0.0 - 0.7 /CUMM) Pending Absolute Basophils (0.0 - 0.2 /CUMM) Pending Last 24 Hours of Dar Results: SPEC #: [id number] MARIANNE: 06/24/18 STATUS: COMP RECD: 06/24/[address]: Everardo Minor MD SOURCE: UPPER RESP ENTR: 06/24/[address]: Everardo Minor MD SPDESC: STEFANO Lock MD,Benson Walters MD,Analia Hooker ORDERED: ACT SURV NARES Procedure Result > ACTIVE SURVEILLANCE CULTURE Final 06/26/18 NO METHICILLIN RESISTANT STAPH AUREUS ISOLATED Recent Imaging Studies: Reviewed Assessment/Plan ID Impression: 72 year-old woman with a history of COPD, on 2 L of oxygen at home, and myelodysplastic syndrome, diagnosed over 6 months prior to admission, treated with Revlimid until recently, last hospitalized 2 weeks prior to admission with anemia and shortness of breath, requiring 2 units of blood, readmitted on June 22 with a two-day history of low-grade fevers, chills, sweats, nausea with dry heaves, weakness, headaches, body aches and increasing shortness of breath, found to be afebrile with pancytopenia and with imaging revealing dense consolidation in the left lung; clinically appears to be slowly improving. Suggestion: 1. Decreased oxygen requirements, on Ceftriaxone (given via peripheral iv) and Azithromycin, now Day 7/8 of treatment for CAP. Assess patient in am regarding extending treatment w/ oral third gen CS (e.g cefixime) and doxycycline for additional 5 d. 2. Monitor CBC. 3. F/U Pulmonary recom.
[2018-06-29] MEDS ORDERED: LOPRESSOR50 M1 PO (13:43)
--- NOTE | 2018-06-29 13:47 | Patient Discharge Instructions ---
Discharge Instructions General Discharge Information You were seen/treated for: Left lower lobe pneumonia and sepsis Acute hypoxic respiratory failure Demand ischemia Proximal A. fib, back to sinus MDS Special Instructions: Follow-up PCP in 1 week after discharge Follow-up with cardiology in 1 week after discharge Follow-up with project management professional in 1 week after discharge Follow-up with scenery builder in 1 week after discharge Patient may need CT scan of chest after 4 -6 weeks to conform resolution of pneumonia. Diet Continue normal diet: Yes Activity Full Activity/No Limits: Yes Acute Coronary Syndrome Inclusion Criteria At DC or during hospital stay patient has or had the following: ACS DIAGNOSIS No Discharge Core Measures Meds if any: Prescribed or Continued at Discharge Meds if any: NOT Prescribed or Continued at Discharge Congestive Heart Failure Inclusion Criteria At DC or during hospital stay patient has or had the following: CHF DIAGNOSIS No Discharge Core Measures Meds if any: Prescribed or Continued at Discharge Meds if any: NOT Prescribed or Continued at Discharge Cerebrovascular accident Inclusion Criteria At DC or during hospital stay patient has or had the following: CVA/TIA Diagnosis No Discharge Core Measures Meds if any: Prescribed or Continued at Discharge Meds if any: NOT Prescribed or Continued at Discharge Venous thromboembolism Inclusion Criteria VTE Diagnosis No VTE Type NONE VTE Confirmed by (Test) NONE Discharge Core Measures - Per Current guidelines, there needs to be overlap - treatment for the first 5 days of Warfarin therapy. - If discharged on Warfarin prior to 5 days of - overlap therapy, the patient will need to be - assessed for post discharge needs including - *Post discharge parental anticoagulation - *Warfarin and/or parental anticoagulation education - *Follow up date to check INR post discharge At least 5 days overlap therapy as Inpatient No Meds if any: Prescribed or Continued at Discharge Note: Overlap Therapy is Warfarin and Anticoagulant Meds if any: NOT Prescribed or Continued at Discharge
--- NOTE | 2018-06-29 14:14 | Discharge Summary ---
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 On admission she was afebrile with an O2 sat of 94% on 3 L. Laboratory data revealed a white blood cell count of 2.1, with 18 bands, H&H 8.8 and 26, platelets 70,000, BUN/creatinine 15 and 0.7, AST ALT 53 and 48, troponin 0.22. Urinalysis 5-10 RBC/15-25 WBCs. Chest x-ray revealed dense consolidation of the left lung base. She was given Vancomycin and Ceftazidime and 1 dose of Solumedrol. On June 23 she was changed to Ceftriaxone and Azithromycin. ON 06/24 she was noted to be more dyspneic and was moved to the ICU. She did report an episode of hemoptysis. She has remained afebrile since admission. CTA of the chest June 24 reveals dense consolidation of the left upper lobe with air bronchograms, with a small left pleural effusion and a trace right pleural effusion Blood cultures x 2 June 22 negative Urine strep pneumo antigen and Legionella antigen June 23 negative ----- Hypoxic respiratory failure secondary to Left Upper and lower lobe pneumonia, with sepsis - Patient was initially admitted to telemetry for sepsis with the left lower lobe pneumonia, later transferred to ICU for acute dyspnea and kept on BiPAP. She improved symptomatically, so transferred to telemetry floor on 06/27/2018. Initially she was kept on nonrebreather mask, received TRC/neb, Spiriva 1 inhalation daily and Symbicort 2 puffs every 12 hours.Coordinator Of Rehabilitation Services continued to follow the patient throughout hospitalization. We tapered oxygen to 3 L. Her chest x-ray was showing evidence of left upper and lower lobe pneumonia and blood workup showed neutropenia so, she was covered with vancomycin and ceftaz initially, later switched her to azithromycin and ceftriaxon for total 10 days. Her urine for strep pneumo and Legionella were negative and follow-up blood cultures were negative.She remained afebrile with low WBC count from MDS.She was discharged after compleion of antibiotics, on 3 L of oxygen. At the time of discharge we also did ultrasound of the chest which showed small left-sided pleural effusion. We advised to follow-up with her primary care provider and insurance application investigator within a week of discharge. She may need follow-up CT scan in next 4-6 weeks to see for complete resolution of pneumonia and to rule out possible underlying malignancy. Demand ischemia in the setting of sepsis Troponins were trended down. She was found to have paroxysmal atrial fibrillation, spontaneous conversion to sinus rhythm. Osha Inspector discussed about anticoagulation however she refused. She was started on metoprolol 50 mg twice daily. We continued her home dose of Plavix 75 daily. 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 Her medication has been held. Her current counts were: Hb:8.5 WBC:2.1 PLT:74 ANC: 1.4. Heme/Onc recommendations are being followed. We advised to follow-up with him on for possible restarting leflunomide. Pain management - She was constantly complaining of pain in her body including back, hands and legs. It looks like she has neuropathic pain probably secondary to leflunomide and her cancer chemotherapy. We started her on tablet gabapentin 300 mg at the nighttime. Patient tolerated well. He also increase the dose of Dilaudid from 4 mg 6 hourly to 6 mg 4 hourly. We advised the patient to follow-up with the pain management. She was still thinking about it. She refused for fentanyl patch. She wanted to have an Advil, we already make her aware that it may lead to increase chances of bleeding as her platelet count are very low and she has history of peptic ulcer disease. *She adamantly opposed to the idea of going to rehabilitation. *At the time of discharge she was on 3 L of oxygen. *We did check CTPMP - She exceeds MME/D threshold, but she has baseline hx of Cancer so prescribed 11 tab of dialudid. *According to the physical therapist patient need wheelchair for transport from home. Patient fatigues very easily so she needs a wheelchair for longer distances. Allergies: Coded Allergies: aspirin (Intermediate, GI UPSET 06/22/18) gluten (Mild, GI UPSET 06/22/18) lactase (From DAIRY AID) (Mild, LACTOSE INTOLERANT 06/22/18) Significant Procedures: 1. Improved aeration without resolution at left lung base since the prior study dated 05/06/2018. 2. Stable trace left-sided pleural effusion versus thickening or combination thereof. 3. No new abnormalities. Pertinent Lab Results: CT ABD There is a lobulated hyperdensity along the posterior surface of the physiologically distended urinary bladder that is suboptimally assessed due to the absence of intravenous contrast. It may represent a soft tissue mass such as a urothelial neoplasm. Alternatively this finding may represent blood clot layering dependently within the urinary bladder. Otherwise no substantial change when compared to most recent prior CT scan from 05/04/2018. There are chronic changes of a right nephrectomy. Multiple well marginated cystic lesions arising from the left kidney are redemonstrated. Disposition Summary Disposition Principal Diagnosis: Sepsis secondary to pneumonia HCAP Pancytopenia Secondary to MDS Demand ischemia Paroxysmal A. fib currenlty on NSR, refused anticoagulation Recent blood loss anemia, Hemoglobin currently stable Additional Diagnosis: History of COPD, on 2L oxygen History of hypertension. Chronic back pain Previous rectal cancer status post multiple surgical interventions and neoadjuvant chemoradiation - completed Discharge Disposition: home or self care Discharge Instructions General Discharge Information Code Status: Do Not Resucitate/Intubat Patient's Diet: As tolerated Patient's Activity: As tolerated Follow-Up Instructions/Appts: Follow-up with PCP in 1 week after discharge follow-up with heel slicker in 1 week after discharge Follow-up with insurance application investigator in 1 week after discharge Follow-up with pharmacist critical care in 1 week after discharge Patient may need CT scan of chest after 4 -6 weeks to confirm resolution of pneumonia. Medications at Discharge Discharge Medications: Continue taking these medications: Albuterol Sulfate (Proair Hfa) 90 MCG HFA.AER.AD 2 Puff Inhale through mouth Q6H as needed for RESPIRATORY Comments: Last Taken: 07/02/28 Time:10:00 AM TREATMENT GIVEN BY RESPIRATORY Oxycodone HCl (Oxycontin) 20 MG TAB.ER.12H 1 Tablet ORAL Q12H Comments: Last Taken: 07/02/18 Time: 11:00 AM Zolpidem Tartrate (Ambien) 5 MG TABLET 1 Tablet ORAL TAKE AT BEDTIME as needed for PAIN Comments: Last Taken: 07/02/18 Time: 11:00 PM Budesonide/Formoterol Fumarate (Symbicort 160-4.5 Mcg Inhaler) 160 MCG-4.5 MCG/ ACTUATION HFA.AER.AD 2 Puff Inhale through mouth TWICE DAILY Comments: Last Taken: 07/02/18 Time: 0823 Hydromorphone HCl (Hydromorphone HCl) 4 MG TABLET 1 Tablet ORAL Every 4 hours as needed for PAIN Qty = 60 Comments: Last Taken: 07/02/18 Time: 6:00 AM Ipratropium/Albuterol Sulfate (Combivent Respimat Inhal [place]) 20 MCG-100 MCG/ ACTUATION MIST.INHAL 1 PUFF Inhale through mouth 4XDAILY Qty = 4 Comments: NOT GIVEN Clopidogrel Bisulfate (Plavix) 75 MG TABLET 75 Milligram ORAL DAILY Qty = 30 Instructions: . Comments: Last Taken: 07/02/18 Time: 0823 Furosemide (Furosemide) 40 MG TABLET 1 Tablet ORAL DAILY Qty = 30 Comments: Last Taken:07/02/18 Time:8:00 AM Start taking the following new medications: Gabapentin (Gabapentin) 300 MG CAPSULE 300 Milligram ORAL Every night Qty = 30 No Refills Instructions: . Comments: Last Taken: 07/01/18 Time: 9:00PM Hydromorphone HCl (Hydromorphone HCl) 2 MG TABLET 2 Milligram ORAL EVERY 4-6 HOURS NEEDED as needed for PAIN SCALE 7-10 ( SEVERE) Qty = 11 No Refills Comments: PAR OF SEVERE PAIN PRN REGIME Metoprolol Tartrate (Lopressor) 50 MG TABLET 1 Tablet ORAL TWICE DAILY Qty = 60 No Refills Instructions: . Comments: Last Taken: 07/02/18 Time: 9:00AM Nystatin (Nystatin) 100,000 UNIT/GRAM OINT...G. 1 Application On the skin 4 TIMES A DAY Qty = 30 No Refills Instructions: apply to affected area(s) Comments: Last Taken: 07/02/18 Time: 9:00 AM Copies To: Selena CONNER,Analia Hooker Attending MD Review Statement Documenting Attending: Linden CONNER,Vee Mansfield
[2018-06-29 15:27] VITALS: BP 160/60
[2018-06-29 21:46] VITALS: BP 164/68
[2018-06-30 06:40] VITALS: BP 172/80
--- NOTE | 2018-06-30 06:46 | PN- Housestaff ---
Alma CONNER,Pallavi 06/30/18 0645: Subjective Follow-up For: Fever and generalized weakness secondary to pneumonia Demand ischemia Pancytopenia with a baseline history of myelodysplastic syndrome History of rectal cancer status post neoadjuvant therapy COPD Hypertension Review of Systems Constitutional: Reports: no symptoms, malaise, weakness. Respiratory: Reports: short of breath. Objective Last 24 Hrs of Vital Signs/I&O Vital Signs Date Time Temp Pulse Resp B/P B/P Pulse O2 O2 Flow FiO2 Mean Ox Delivery Rate 06/30 0640 98.2 82 22 172/80 94 Nasal Cannula 06/30 0000 90 Nasal 6.0L Cannula 06/29 2146 98.0 80 22 164/68 94 Nasal Cannula 06/29 2010 92 Nasal 6.0L Cannula 06/29 1600 95 Nasal 6.0L Cannula 06/29 1527 97.9 69 20 160/60 97 Nasal 6.0L Cannula 06/29 1008 94 Nasal 8L Cannula 06/29 0934 73 170/76 06/29 0800 97 Nasal 50% Cannula Intake & Output 06/30 0806/30 0000 06/29 1600 Intake Total 150 160.5 715 Output Total 500 850 Balance 150 -339.5 -135 Intake, IV 10.5 15 Intake, Oral 150 150 700 Output, Stool 200 150 Output, Urine 300 700 Patient 108.068 kg Weight Weight Bed scale Measurement Method Physical Exam General Appearance: Alert, Oriented X3, Cooperative, No Acute Distress Cardiovascular: Normal S1, Normal S2 Lungs: decreased air entry, bilaterally Abdomen: Soft, No Tenderness, left lower quadrant colostomy Neurological: Normal Speech Extremities: No Clubbing, No Cyanosis, mild edema Vascular: Normal Pulses, Pulses Symmetrical Current Medications: Current Medications Sig/Dontae Start time Last Medication Dose Route Stop Time Status Admin Acetaminophen 650 MG Q4P PRN 06/26 2145 AC 06/30 PO 0848 Albuterol Sulfate 3 ML TID 06/23 2100 AC 06/30 INH 1251 Azithromycin 500 MG DAILY 07/01 900 AC PO 07/02 09 Azithromycin 250 MG DAILY 06/27 1130 DC 06/30 PO 0836 Budesonide/ 2 PUF BID 06/23 09 AC 06/30 Formoterol Fumarate INH 0837 Calcium Carbonate 500 MG BID PRN 06/25 07 AC 06/25 PO 0916 Ceftriaxone Sodium 1,000 MG DAILY 06/26 0900 DC 06/30 IV 0835 Clopidogrel Bisulfate 75 MG DAILY 06/23 0900 AC 06/30 PO 0836 Gabapentin 300 MG QPM 06/30 2100 AC PO Hydromorphone HCl 2 MG Q4-6 PRN PRN 06/29 2030 AC PO Hydromorphone HCl 4 MG Q4-6 PRN PRN 06/27 1500 AC 06/30 PO 1131 Hydromorphone HCl 1 MG Q4 HRS NEEDED PRN 06/22 223 AC 06/29 IV 2052 Metoprolol Tartrate 50 MG BID 06/26 09 AC 06/30 PO 0837 Nystatin 1 EDE DAILY 06/30 0900 AC 06/30 TOP 0838 Omeprazole 40 MG DAILY AC 06/25 1033 AC 06/30 PO 0558 Ondansetron HCl 4 MG Q6P PRN 06/22 2230 AC 06/25 IV 0916 Oxycodone HCl 20 MG Q12H 06/22 2300 AC 06/30 PO 0835 Sodium Chloride 1 SPRAY DAILY NEEDED PRN 06/23 204 AC 06/25 CHARLENE 0620 Tiotropium [place] 1 PUF DAILY 06/28 1217 AC 06/30 INH 0836 Zolpidem Tartrate 5 MG QPM PRN 06/22 230 AC 06/29 PO 2323 Last 24 Hrs of Lab/Dar Results Last 24 Hrs of Labs/Mics: Laboratory Tests 06/29/18 0745: Anion Gap 9, Estimated GFR > 60, BUN/Creatinine Ratio 18.3, CBC w Diff MAN DIFF ORDERED, RBC 2.41 L, MCV 104.7 H, MCH 35.2 H, MCHC 33.6, RDW 23.2 H, MPV 8.6 , Gran % 40.6 L, Lymphocytes % 51.9 H, Monocytes % 6.6, Eosinophils % 0.9, Basophils % 0, Absolute Granulocytes 1.3 L, Segmented Neutrophils 54, Band Neutrophils 5, Absolute Lymphocytes 1.7, Lymphocytes 33, Monocytes 6, Absolute Monocytes 0.2, Eosinophils 1, Absolute Eosinophils 0, Basophils 1, Absolute Basophils 0, Platelet Estimate DECREASED, Polychromasia 1+, Hypochromic- Microcytic 1+, Macrocytic Cells 1+ Assessment/Plan Assessment: Patient is a 72-year-old female with presented with chief complaints of fever and generalized weakness after 2 days found to have pneumonia of left lower lobe and upper lobe of the lung with adjacent pleural effusion, with associated demand ischemia. Past medical history - * COPD on 2 L of oxygen at home * Myelodysplastic syndrome -this last 6 months and treated with Revlimid, currently having pancytopenia * History of rectal cancer (2005) status post multiple surgical intervention and neoadjuvant chemoradiation * History of atrial fibrillation/flutter with spontaneous conversion * History of hypertension Vital signs -temperature 98.2, pulse 82, respiratory 22, blood pressure 172/80, SPO2 94% on nasal cannula 6 L Assessment and plan- Patient was not feeling better, and want to stay till she is able to walk. She refused to go to rehabilitation.We will taper oxygen today. make her more moblize. Acute hypoxic respiratory failure with septicemia secondary to left lower lobe and upper lobe pneumonia -possible community-acquired pneumonia - * We stop injection ceftriaxone and azithromycin(D8) and start on Tab Azee 500mg PO OD. * We will taper oxygen today. * TRC/nebulization * Continue Spiriva and Symbicort * Follow-up blood cultures were negative Myelodysplastic syndrome, leading to pancytopenia * We will continue to hold lenalidomide and patient needs to follow-up to hemato - oncologist as an outpatient. * Patient may need bone marrow in future. * We will transfuse platelets if it is less than 10,000, less than 20,000 with fever, less than 50,000 with bleeding and PRBC if hemoglobin is less than 8. Pain management - * We started patient on tablet gabapentin 300 mg every afternoon. * She is currently on tablet [place] morphine 4 mg every 6 as needed, 2 mg every 6 as needed, inj hydromorphone 1 mg every 4 IV as needed. We stop IV and continue on 4 mg every 6 as needed. * Tablet OxyContin 20 mg p.o. twice daily. Diet - Regular diet, she refused for extra nutrition and nutrition consult. DVT PPX - not on anticoagulation because of low platelet count CODE STATUS-DNR/DNI Problem List: 1. MDS (myelodysplastic syndrome) with 5q deletion 2. Hypoxia Pain Ratin Pain Location: generalized body and back pain Pain Goal: Pain 4 or less Pain Plan: pain medication according to pain scale Tomorrow's Labs & Rationales: not required DVT/Prophylaxis: mechanical, pharmacological Vee Cheatham MD 06/30/18 1102: Attending MD Review Statement Attending Statement Attending MD Statement: examined this patient, discuss w/resident/PA/GROUP EXERCISE INSTRUCTOR, agreed w/resident/PA/GROUP EXERCISE INSTRUCTOR, reviewed EMR data (avail), discussed with nursing, discussed with case mgmt, reviewed images Attending Assessment/Plan: Pt feels tired at and weak but overall better than before. She is down to 6 L of oxygen. Will discuss with ID choice of oral antibiotics to complete an extended course for a severe pneumonia in association with myelodysplastic syndrome and pancytopenia. PT is clearing her for home if goals are met and patient is very adamantly opposed to the idea of going to rehabilitation. Will taper oxygen in anticipation of discharge.
--- NOTE | 2018-06-30 07:34 | PN- Hematology ---
Subjective Subjective: She denies any fever or chills. She continues to have pain. Breathing is stable. She has no nausea or vomiting. She has no diarrhea. She is up in the recliner. Review of Systems: Constitutional: Reports: weakness. Denies: fever. Cardiovascular: Denies: chest pain. Respiratory: Reports: short of breath, improving. Denies: cough, hemoptysis. GI: Denies: abdominal pain, constipation, diarrhea. Neurological/Psychological: Reports: anxiety. Musculoskeletal: Reports: right arm pain Hematologic/Endocrine: Denies: bleeding. Reports: bruising from IV/phleb All Other Systems: Reviewed and Negative Objective Vital Signs and I&Os Vital Signs Date Time Temp Pulse Resp B/P B/P Pulse O2 O2 Flow FiO2 Mean Ox Delivery Rate 06/30 0640 98.2 82 22 172/80 94 Nasal Cannula 06/30 0000 90 Nasal 6.0L Cannula 06/29 2146 98.0 80 22 164/68 94 Nasal Cannula 06/29 2010 92 Nasal 6.0L Cannula 06/29 1600 95 Nasal 6.0L Cannula 06/29 1527 97.9 69 20 160/60 97 Nasal 6.0L Cannula 06/29 1008 94 Nasal 8L Cannula 06/29 0934 73 170/76 06/29 0800 97 Nasal 50% Cannula Intake & Output 06/30 0806/30 0000 06/29 1600 06/29 0800 06/29 0000 06/28 1600 Intake Total 150 160.5 715 670 056 5743 Output Total 500 850 850 1 1400 Balance 150 -339.5 -135 -730 119 -400 Intake, IV 10.5 15 Intake, Oral 150 150 700 713 153 7713 Number 1 2 Bowel Movements Output, Stool 200 150 1 Output, Urine 300 495 632 1177 Patient 108.068 kg 110.308 kg 107.501 kg Weight Weight Bed scale Bed scale Measurement Method Physical Exam: General Appearance: well developed/nourished, no apparent distress, alert, awake , comfortable, obese Respiratory: chest non-tender, no respiratory distress, quiet respiration, decrease breath sound LLL, 6L NC Cardiovascular: regular rate/rhythm Gastrointestinal: soft, non-tender, no organomegaly Extremities: no edema Neurologic/Psych: awake, alert, oriented x 3 Cranial Nerves: normal speech Skin: cool and dry, scattered ecchymoses in the upper extremity. Lymphatic: no anterior cervical pricilla Current Medications: Current Medications Sig/Dontae Start time Last Medication Dose Route Stop Time Status Admin Acetaminophen 650 MG Q4P PRN 06/26 2145 AC 06/29 PO 0057 Albuterol Sulfate 3 ML TID 06/23 2100 AC 06/29 INH 1956 Azithromycin 250 MG DAILY 06/27 1130 AC 06/29 PO 0931 Budesonide/ 2 PUF BID 06/23 09 AC 06/29 Formoterol Fumarate INH 205 Calcium Carbonate 500 MG BID PRN 06/25 07 AC 06/25 PO 0916 Ceftriaxone Sodium 1,000 MG DAILY 06/26 09 AC 06/29 IV 0920 Clopidogrel Bisulfate 75 MG DAILY 06/23 09 AC 06/29 PO 0932 Hydromorphone HCl 2 MG Q4-6 PRN PRN 06/29 2030 AC PO Hydromorphone HCl 4 MG Q4-6 PRN PRN 06/27 1500 AC 06/30 PO 0558 Hydromorphone HCl 1 MG Q4 HRS NEEDED PRN 06/22 2230 AC 06/29 IV 205 Metoprolol Tartrate 50 MG BID 06/26 0900 AC 06/29 PO 2053 Nystatin 1 EDE DAILY 06/30 0900 AC TOP Omeprazole 40 MG DAILY AC 06/25 1033 AC 06/30 PO 0558 Ondansetron HCl 4 MG Q6P PRN 06/22 2230 AC 06/25 IV 0916 Oxycodone HCl 20 MG Q12H 06/22 2300 AC 06/29 PO 2217 Sodium Chloride 1 SPRAY DAILY NEEDED PRN 06/23 2045 AC 06/25 CHARLENE 0620 Tiotropium [place] 1 PUF DAILY 06/28 1217 AC 06/29 INH 0931 Zolpidem Tartrate 5 MG QPM PRN 06/22 2300 AC 06/29 PO 2323 Results Last 24 Hours of Lab Results: Laboratory Tests 06/29 0745 Chemistry Sodium (137 - 145 mmol/L) 142 Potassium (3.5 - 5.1 mmol/L) 4.3 Chloride (98 - 107 mmol/L) 104 Carbon Dioxide (22 - 30 mmol/L) 29 Anion Gap (5 - 16) 9 BUN (7 - 17 mg/dL) 11 Creatinine (0.5 - 1.0 mg/dL) 0.6 Estimated GFR (>60 ml/min) > 60 BUN/Creatinine Ratio (7 - 25 %) 18.3 Hematology CBC w Diff MAN DIFF ORDERED WBC (4.8 - 10.8 /CUMM) 3.3 L RBC (4.20 - 5.40 /CUMM) 2.41 L Hgb (12.0 - 16.0 G/DL) 8.5 L Hct (37 - 47 %) 25.3 L MCV (81.0 - 99.0 FL) 104.7 H MCH (27.0 - 31.0 PG) 35.2 H MCHC (33.0 - 37.0 G/DL) 33.6 RDW (11.5 - 14.5 %) 23.2 H Plt Count (130 - 400 /CUMM) 94 L MPV (7.4 - 10.4 FL) 8.6 Gran % (42.2 - 75.2 %) 40.6 L Lymphocytes % (20.5 - 51.1 %) 51.9 H Monocytes % (1.7 - 9.3 %) 6.6 Eosinophils % (0 - 5 %) 0.9 Basophils % (0.0 - 2.0 %) 0 Absolute Granulocytes (1.4 - 6.5 /CUMM) 1.3 L Segmented Neutrophils (42.2 - 75.2 %) 54 Band Neutrophils (0.0 - 5.0 %) 5 Absolute Lymphocytes (1.2 - 3.4 /CUMM) 1.7 Lymphocytes (20.5 - 51.1 %) 33 Monocytes (1.7 - 9.3 %) 6 Absolute Monocytes (0.10 - 0.60 /CUMM) 0.2 Eosinophils (0 - 5.0 %) 1 Absolute Eosinophils (0.0 - 0.7 /CUMM) 0 Basophils (0.0 - 2.0 %) 1 Absolute Basophils (0.0 - 0.2 /CUMM) 0 Platelet Estimate (ADEQUATE) DECREASED Polychromasia 1+ Hypochromic-Microcytic 1+ Macrocytic Cells 1+ Assessment/Plan Hematology Assessment/Recommendations: Ms. 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 Her presentation was concerning for infectious etiology. She has likely left lower lobe pneumonia. Respiratory status has improved. She is currently on antibiotics and is being followed by ID. She may need a line for antibiotics. Port would be better for her in the detention. Given her infection, ID should be contacted to discuss prior to port placement. For her MDS, counts are improving. She may be monitored for now. She may be transfused as needed. She is hesistant on more therapy. Pneumonia: -continue current antibiotics as per ID/primary -continue to taper oxygen as tolerated -for IV access: would prefer port over PICC (please discuss with ID prior, in setting of infection from PNA) Pancytopenia: -transfuse with platelet if <10,000, <20,000 with fever, or <50,000 with bleeding -transfuse with pRBC if hgb <8 MDS: -continue to hold lenalidomide -follow up as outpatient Please call [phone] with any questions or concerns. Problem List: 1. Pancytopenia 2. Pneumonia 3. MDS (myelodysplastic syndrome) with 5q deletion
--- NOTE | 2018-06-30 12:15 | PN- Infect Dx ---
Subjective Subjective: Afebrile. She feels improved overall with no complaints at this time. Objective Last 24 Hrs of Vital Signs/I&O Vital Signs Date Time Temp Pulse Resp B/P B/P Pulse O2 O2 Flow FiO2 Mean Ox Delivery Rate 06/30 906 95 Nasal 6.0L Cannula 06/30 0837 77 158/76 06/30 0640 98.2 82 22 172/80 94 Nasal Cannula 06/30 0000 90 Nasal 6.0L Cannula 06/29 2146 98.0 80 22 164/68 94 Nasal Cannula 06/29 2010 92 Nasal 6.0L Cannula 06/29 1600 95 Nasal 6.0L Cannula 06/29 1527 97.9 69 20 160/60 97 Nasal 6.0L Cannula Intake & Output 06/30 0806/30 0000 Intake Total 150 160.5 Output Total 500 Balance 150 -339.5 Intake, IV 10.5 Intake, Oral 150 150 Output, Stool 200 Output, Urine 300 Patient 238 lb Weight Weight Bed scale Measurement Method Physical Exam Other Physical Findings: She appears comfortable, now on nasal oxygen Lungs bibasilar crackles, left greater than right Heart regular rhythm with no murmur Extremities no cyanosis, clubbing or edema Results Last 24 Hours of Lab Results: Laboratory Tests 06/29 0745 Chemistry Sodium (137 - 145 mmol/L) 142 Potassium (3.5 - 5.1 mmol/L) 4.3 Chloride (98 - 107 mmol/L) 104 Carbon Dioxide (22 - 30 mmol/L) 29 Anion Gap (5 - 16) 9 BUN (7 - 17 mg/dL) 11 Creatinine (0.5 - 1.0 mg/dL) 0.6 Estimated GFR (>60 ml/min) > 60 BUN/Creatinine Ratio (7 - 25 %) 18.3 Hematology CBC w Diff MAN DIFF ORDERED WBC (4.8 - 10.8 /CUMM) 3.3 L RBC (4.20 - 5.40 /CUMM) 2.41 L Hgb (12.0 - 16.0 G/DL) 8.5 L Hct (37 - 47 %) 25.3 L MCV (81.0 - 99.0 FL) 104.7 H MCH (27.0 - 31.0 PG) 35.2 H MCHC (33.0 - 37.0 G/DL) 33.6 RDW (11.5 - 14.5 %) 23.2 H Plt Count (130 - 400 /CUMM) 94 L MPV (7.4 - 10.4 FL) 8.6 Gran % (42.2 - 75.2 %) 40.6 L Lymphocytes % (20.5 - 51.1 %) 51.9 H Monocytes % (1.7 - 9.3 %) 6.6 Eosinophils % (0 - 5 %) 0.9 Basophils % (0.0 - 2.0 %) 0 Absolute Granulocytes (1.4 - 6.5 /CUMM) 1.3 L Segmented Neutrophils (42.2 - 75.2 %) 54 Band Neutrophils (0.0 - 5.0 %) 5 Absolute Lymphocytes (1.2 - 3.4 /CUMM) 1.7 Lymphocytes (20.5 - 51.1 %) 33 Monocytes (1.7 - 9.3 %) 6 Absolute Monocytes (0.10 - 0.60 /CUMM) 0.2 Eosinophils (0 - 5.0 %) 1 Absolute Eosinophils (0.0 - 0.7 /CUMM) 0 Basophils (0.0 - 2.0 %) 1 Absolute Basophils (0.0 - 0.2 /CUMM) 0 Platelet Estimate (ADEQUATE) DECREASED Polychromasia 1+ Hypochromic-Microcytic 1+ Macrocytic Cells 1+ Last 24 Hours of Dar Results: No new cultures Assessment/Plan ID Impression: Continued improvement, with temperatures remaining normal and with a continued decrease in her oxygen requirements, on Ceftriaxone and Azithromycin, Day 8 of treatment for a left upper lobe pneumonia. She remains pancytopenic secondary to her myelodysplastic syndrome. Suggestion: 1. Discontinue Ceftriaxone 2. Can change to Azithromycin 500 mg p.o. every 24 hours for 2 more days
[2018-06-30 14:00] VITALS: BP 140/60
[2018-06-30 23:11] VITALS: BP 140/66
[2018-07-01 06:30] VITALS: BP 140/80
--- NOTE | 2018-07-01 07:10 | PN- Housestaff ---
Alma CONNER,Pallavi 07/01/18 0709: Subjective Follow-up For: Fever and generalized weakness secondary to pneumonia Demand ischemia Pancytopenia with a baseline history of myelodysplastic syndrome History of rectal cancer status post neoadjuvant therapy COPD Hypertension Complaints: pain Tele-Events Since Last Visit: Normal sinus rhythm, heart rate was between 61-75, Subjective: Patient seen and examined at the bedside she was complaining of generalized body ache, back pain, pain in the both hands and legs. Patient wanted to have changes in the pain medication. We discussed about the dosing and the frequency , we are giving to her. She wanted the frequency of the Dilaudid should be increased. We told that the possibility that we can give her diclofenac gel topically but cannot give NSAIDs orally, as she is having, thrombocytopenia. She does not wanted to use a gel as it will be difficult for her, for applying gel, on the legs. We discussed with Dr. Torres Serra and she advised that we can increase the dose of tablet Dilaudid to 6 mg every 4-6 hourly. Review of Systems Constitutional: Reports: no symptoms, malaise. Musculoskeletal: Reports: back pain, joint pain, muscle pain. Objective Last 24 Hrs of Vital Signs/I&O Vital Signs Date Time Temp Pulse Resp B/P B/P Pulse O2 O2 Flow FiO2 Mean Ox Delivery Rate 07/01 0917 92 Nasal 4.0L Cannula 07/01 0859 94 Nasal 4.0L Cannula 07/01 0818 74 140/80 07/01 0630 97.5 74 20 140/80 99 Nasal 6.0L Cannula 07/01 0000 Nasal 6.0L Cannula 06/30 2311 98.1 80 22 140/66 92 Nasal 6.0L Cannula 06/30 2111 88 140/66 06/30 2037 95 Nasal 6.0L Cannula 06/30 1709 94 Nasal 6.0L Cannula Intake & Output 07/01 1600 07/01 0800 07/01 0000 Intake Total 400 120 120 Output Total 650 1 Balance -250 120 119 Intake, Oral 400 120 120 Number 1 Bowel Movements Output, Stool 200 1 Output, Urine 450 Patient 107.275 kg Weight Weight Bed scale Measurement Method Physical Exam General Appearance: Alert, Oriented X3, Cooperative, No Acute Distress Neck: Supple, No JVD Cardiovascular: Normal S1, Normal S2 Lungs: decreased air entry, bilaterally Abdomen: Soft, No Tenderness Extremities: No Clubbing, No Cyanosis, mild lower leg edema Vascular: Normal Pulses, Pulses Symmetrical Current Medications: Current Medications Sig/Dontae Start time Last Medication Dose Route Stop Time Status Admin Acetaminophen 650 MG Q4P PRN 06/26 2145 AC 06/30 PO 0848 Albuterol Sulfate 3 ML TID 06/23 2100 AC 07/01 INH 0858 Azithromycin 500 MG DAILY 07/01 09 AC 07/01 PO 07/02 0901 0818 Budesonide/ 2 PUF BID 06/23 09 AC 07/01 Formoterol Fumarate INH 0821 Calcium Carbonate 500 MG BID PRN 06/25 0700 AC 06/25 PO 0916 Clopidogrel Bisulfate 75 MG DAILY 06/23 09 AC 07/01 PO 0818 Gabapentin 300 MG QPM 06/30 2100 AC 06/30 PO 2111 Hydromorphone HCl 6 MG Q4-6 PRN PRN 07/01 0900 AC 07/01 PO 1104 Hydromorphone HCl 2 MG Q4-6 PRN PRN 06/29 2030 DC PO Hydromorphone HCl 4 MG Q4-6 PRN PRN 06/27 1500 DC 07/01 PO 0611 Hydromorphone HCl 1 MG Q4 HRS NEEDED PRN 06/22 2230 DC 06/29 IV 2052 Ibuprofen 600 MG ONCE ONE 06/30 2100 DC 06/30 PO 06/30 2101 2115 Metoprolol Tartrate 50 MG BID 06/26 0900 AC 07/01 PO 0818 Nystatin 1 EDE DAILY 06/30 09 AC 07/01 TOP 0822 Omeprazole 40 MG DAILY AC 06/25 1033 AC 07/01 PO 0610 Ondansetron HCl 4 MG Q6P PRN 06/22 2230 AC 06/25 IV 0916 Oxycodone HCl 20 MG Q12H 06/22 2300 AC 07/01 PO 0818 Sodium Chloride 1 SPRAY DAILY NEEDED PRN 06/23 2045 AC 06/25 CHARLENE 0620 Tiotropium [place] 1 PUF DAILY 06/28 1217 AC 07/01 INH 0821 Zolpidem Tartrate 5 MG QPM PRN 06/22 2300 AC 06/30 PO 2301 Assessment/Plan Assessment: Patient is a 72-year-old female with presented with chief complaints of fever and generalized weakness after 2 days found to have pneumonia of left lower lobe and upper lobe of the lung with adjacent pleural effusion, with associated demand ischemia. Past medical history - * COPD on 2 L of oxygen at home * Myelodysplastic syndrome -this last 6 months and treated with Revlimid, currently having pancytopenia * History of rectal cancer (2005) status post multiple surgical intervention and neoadjuvant chemoradiation * History of atrial fibrillation/flutter with spontaneous conversion * History of hypertension Vital signs -temperature 98.2, pulse 82, respiratory 22, blood pressure 140/66, SPO2 94% on nasal cannula 4 L Assessment and plan- PT Taper Oxygen Plan to discharge tmr Acute hypoxic respiratory failure with septicemia secondary to left lower lobe and upper lobe pneumonia -possible community-acquired pneumonia - * Tab Azee 500mg PO OD x 1 dose * We will taper oxygen today. * TRC/nebulization * Continue Spiriva and Symbicort * Follow-up blood cultures were negative Myelodysplastic syndrome, leading to pancytopenia * We will continue to hold lenalidomide and patient needs to follow-up to hemato - oncologist as an outpatient. * Patient may need bone marrow examination in future. * We will transfuse platelets if it is less than 10,000, less than 20,000 with fever, less than 50,000 with bleeding and PRBC if hemoglobin is less than 8. Pain management - * We will continue tablet gabapentin 300 mg in evening. * The increase the dose of tablet hydromorphone to 6 mg every 4-6 hourly * Tablet OxyContin 20 mg p.o. twice daily. Diet - Regular diet, she refused for extra nutrition and nutrition consult. DVT PPX - not on anticoagulation because of low platelet count CODE STATUS-DNR/DNI Problem List: 1. Pneumonia 2. Pancytopenia Pain Ratin Pain Location: back Pain Goal: Pain 4 or less Pain Plan: Pain medication according to the pain scale Tomorrow's Labs & Rationales: Not applicable DVT/Prophylaxis: Vee Clement MD 07/01/18 0935: Attending MD Review Statement Attending Statement Attending MD Statement: examined this patient, discuss w/resident/PA/WINDOWS TECHNICAL SPECIALIST, agreed w/resident/PA/WINDOWS TECHNICAL SPECIALIST, reviewed EMR data (avail), discussed with nursing, discussed with case mgmt, reviewed images Attending Assessment/Plan: Patient complains of a considerable amount of pain. She is on OxyContin and Dilaudid. Her pain had a very neuropathic nature to it and so we started gabapentin at bedtime. She is on p.o. antibiotics now and with tapering the oxygen. She is down to 4 L today. She is adamantly opposed to going to rehab so the plan is for have PT work with her at least twice a day and if stable, anticipate discharge in the next 24-48 hours. She has myelodysplastic syndrome with severe pancytopenia.
--- NOTE | 2018-07-01 10:08 | PN- Pulmonary ---
Subjective HPI/Critical Care Issues: The patient is awake and alert. She is doing better overall. She is now on 4 L with saturations in the low to mid 90s she is afebrile. Objective Current Medications: Current Medications Sig/Dontae Start time Last Medication Dose Route Stop Time Status Admin Acetaminophen 650 MG Q4P PRN 06/26 2145 AC 06/30 PO 0848 Albuterol Sulfate 3 ML TID 06/23 2100 AC 07/01 INH 0858 Azithromycin 500 MG DAILY 07/01 09 AC 07/01 PO 07/02 0901 0818 Azithromycin 250 MG DAILY 06/27 1130 DC 06/30 PO 0836 Budesonide/ 2 PUF BID 06/23 09 AC 07/01 Formoterol Fumarate INH 0821 Calcium Carbonate 500 MG BID PRN 06/25 07 AC 06/25 PO 0916 Ceftriaxone Sodium 1,000 MG DAILY 06/26 09 DC 06/30 IV 0835 Clopidogrel Bisulfate 75 MG DAILY 06/23 09 AC 07/01 PO 0818 Gabapentin 300 MG QPM 06/30 2100 AC 06/30 PO 2111 Hydromorphone HCl 6 MG Q4-6 PRN PRN 07/01 09 AC PO Hydromorphone HCl 2 MG Q4-6 PRN PRN 06/29 2030 DC PO Hydromorphone HCl 4 MG Q4-6 PRN PRN 06/27 1500 DC 07/01 PO 0611 Hydromorphone HCl 1 MG Q4 HRS NEEDED PRN 06/22 2230 DC 06/29 IV 2052 Ibuprofen 600 MG ONCE ONE 06/30 2100 DC 06/30 PO 06/30 2101 2115 Metoprolol Tartrate 50 MG BID 06/26 09 AC 07/01 PO 0818 Nystatin 1 EDE DAILY 06/30 09 AC 07/01 TOP 0822 Omeprazole 40 MG DAILY AC 06/25 1033 AC 07/01 PO 0610 Ondansetron HCl 4 MG Q6P PRN 06/22 2230 AC 06/25 IV 0916 Oxycodone HCl 20 MG Q12H 06/22 2300 AC 07/01 PO 0818 Sodium Chloride 1 SPRAY DAILY NEEDED PRN 06/23 2045 AC 06/25 CHARLENE 0620 Tiotropium [place] 1 PUF DAILY 06/28 1217 AC 07/01 INH 0821 Zolpidem Tartrate 5 MG QPM PRN 06/22 2300 AC 06/30 PO 2301 Vital Signs & I&O Last 24 Hrs of Vitals and I&O: Vital Signs Date Time Temp Pulse Resp B/P B/P Pulse O2 O2 Flow FiO2 Mean Ox Delivery Rate 07/01 0917 92 Nasal 4.0L Cannula 07/01 0859 94 Nasal 4.0L Cannula 07/01 0818 74 140/80 07/01 0630 97.5 74 20 140/80 99 Nasal 6.0L Cannula 07/01 0000 Nasal 6.0L Cannula 06/30 2311 98.1 80 22 140/66 92 Nasal 6.0L Cannula 06/30 2111 88 140/66 06/30 2037 95 Nasal 6.0L Cannula 06/30 1709 94 Nasal 6.0L Cannula 06/30 1400 97.4 74 20 140/60 95 Nasal 6.0L Cannula Intake & Output 07/01 1600 07/01 0800 07/01 0000 Intake Total 120 120 Output Total 1 Balance 120 119 Intake, Oral 120 120 Number 1 Bowel Movements Output, Stool 1 Patient 237 lb Weight Weight Bed scale Measurement Method Exam General Appearance: alert, awake, comfortable, no distress Head: atraumatic, normal appearance Neck: normal inspection, supple Respiratory: chest non-tender, respiratory distress, scattered rhonchi b/l Cardiovascular: regular rate/rhythm Gastrointestinal: normal bowel sounds, soft, non-tender, no organomegaly, ileostomy noted Extremities: normal inspection, normal capillary refill Results Last 24 Hrs of Lab Results: No labs this am. Last 24 Hrs of Micro Results: Cultures negative. Impression/Plan Impression/Plan Impression/Plan: 1. Left lower lobe pneumonia, with sepsis. 2. Acute hypoxemic respiratory failure secondary to pneumonia. 3. History of COPD, intermittently oxygen dependent, with improved bronchospasm. 4. Pancytopenia. 5. Myelodysplastic syndrome. 6. Previous rectal cancer status post multiple surgical interventions and neoadjuvant chemoradiation. 7. Recent blood loss anemia. Hemoglobin currently stable. 8. Atrial flutter/fibrillation with spontaneous conversion. 9. Mildly elevated troponin secondary to demand ischemia. 10. History of hypertension. 11. Chronic pain. Recommendations: * Check a follow-up chest x-ray today. * Titrate oxygen for saturations greater than 92%. * Continue nebs/TRC. * Spiriva 1 inhalation daily. * Continue Symbicort 2 puffs every 12 hours. * Follow-up cultures. * Continue antibiotics as recommended by ID. * Increase activity. * DVT prophylaxis at all times. * Continue all supportive care.
--- NOTE | 2018-07-01 10:22 | PN- Infect Dx ---
Subjective Subjective: Afebrile. She continues to feel improved with no complaints of shortness of breath, cough or chest pain. Objective Last 24 Hrs of Vital Signs/I&O Vital Signs Date Time Temp Pulse Resp B/P B/P Pulse O2 O2 Flow FiO2 Mean Ox Delivery Rate 07/01 0917 92 Nasal 4.0L Cannula 07/01 0859 94 Nasal 4.0L Cannula 07/01 0818 74 140/80 07/01 0630 97.5 74 20 140/80 99 Nasal 6.0L Cannula 07/01 0000 Nasal 6.0L Cannula 06/30 2311 98.1 80 22 140/66 92 Nasal 6.0L Cannula 06/30 2111 88 140/66 06/30 2037 95 Nasal 6.0L Cannula 06/30 1709 94 Nasal 6.0L Cannula 06/30 1400 97.4 74 20 140/60 95 Nasal 6.0L Cannula Intake & Output 07/01 1600 07/01 0800 07/01 0000 Intake Total 120 120 Output Total 1 Balance 120 119 Intake, Oral 120 120 Number 1 Bowel Movements Output, Stool 1 Patient 237 lb Weight Weight Bed scale Measurement Method Physical Exam Other Physical Findings: She appears comfortable, now on 4 L of nasal oxygen, in no acute distress Lungs bibasilar crackles, left greater than right Heart regular rhythm with no murmur Extremities no cyanosis, clubbing or edema Results Last 24 Hours of Lab Results: No labs from today Last 24 Hours of Dar Results: No new cultures Assessment/Plan ID Impression: Continued improvement, with temperatures remaining normal and with a further decrease in her oxygen requirements, now on Azithromycin alone, Day 9 of treatment for a left upper lobe pneumonia. She remains pancytopenic secondary to her myelodysplastic syndrome. Suggestion: 1. Further management of her respiratory status per Pulmonary 2. Continue Azithromycin, but would discontinue after tomorrow's dose and then follow off antibiotics
[2018-07-01 14:00] VITALS: BP 140/70
[2018-07-01] MEDS ORDERED: HYDROMORPHONE HC2 M1 PO (15:05)
[2018-07-01] MEDS ORDERED: FUROSEMIDE40 M1 PO (15:06)
--- NOTE | 2018-07-01 20:00 | RADIOLOGY REPORT ---
EXAMINATION: XR PORTABLE CHEST CLINICAL INFORMATION: SOB. COMPARISON: None TECHNIQUE: Portable frontal view of the chest was obtained. FINDINGS: Lungs are well-expanded with mild haziness left lower lung likely underlying effusion and/or atelectasis. Infiltrate is not excluded. The right lung is expanded and clear. The heart size and pulmonary vascularity is normal. No gross bony abnormality seen. IMPRESSION: Left lower lobe haziness has slightly improved from 06/27/2018. Underlying consolidation, effusion or atelectasis is suspected.
[2018-07-01 22:17] VITALS: BP 142/68
[2018-07-02 06:50] VITALS: BP 128/60
--- NOTE | 2018-07-02 07:17 | PN- Housestaff ---
Alma CONNER,Pallavi 07/02/18 0716: Subjective Follow-up For: Fever and generalized weakness secondary to pneumonia Demand ischemia Pancytopenia with a baseline history of myelodysplastic syndrome History of rectal cancer status post neoadjuvant therapy COPD Complaints: no complaints Tele-Events Since Last Visit: No any overnight events Subjective: Patient is seen and examined at the bedside. She denies for any active complaints. She was willing to go home. Her oxygen has been tapered to 3 L. Review of Systems Constitutional: Denies: no symptoms. Objective Last 24 Hrs of Vital Signs/I&O Vital Signs Date Time Temp Pulse Resp B/P B/P Pulse O2 O2 Flow FiO2 Mean Ox Delivery Rate 07/02 0910 93 Nasal 3.0L Cannula 07/02 0816 79 164/68 07/02 0800 95 Nasal 3.0L Cannula 07/02 0650 97.7 64 20 128/60 93 Nasal 4.0L Cannula 07/02 0012 96 Nasal 4.0L Cannula 07/02 0000 Nasal 4.0L Cannula 07/01 2217 98.1 85 18 142/68 90 Nasal 4.0L Cannula 07/01 2126 84 142/68 07/01 2000 Nasal 4.0L Cannula 07/01 1626 94 Nasal 4.0L Cannula Intake & Output 07/02 1600 07/02 0800 07/02 0000 Intake Total 120 120 Output Total Balance 120 120 Intake, Oral 120 120 Number 1 Bowel Movements Patient 102.682 kg 107.757 kg Weight Weight Bed scale Bed scale Measurement Method Physical Exam General Appearance: Alert, Oriented X3, Cooperative, No Acute Distress Cardiovascular: Normal S1, Normal S2 Lungs: bilateral decreased air entry in bases Abdomen: Soft, No Tenderness Current Medications: Current Medications Sig/Dontae Start time Last Medication Dose Route Stop Time Status Admin Acetaminophen 650 MG Q4P PRN 06/26 2145 AC 06/30 PO 0848 Albuterol Sulfate 3 ML BID 07/02 2100 AC 07/02 INH 0910 Albuterol Sulfate 3 ML TID 06/23 2100 DC 07/01 INH 1945 Azithromycin 500 MG DAILY 07/01 0900 DC 07/02 PO 07/02 0901 0816 Budesonide/ 2 PUF BID 06/23 0900 AC 07/02 Formoterol Fumarate INH 0817 Calcium Carbonate 500 MG BID PRN 06/25 0700 AC 06/25 PO 0916 Clopidogrel Bisulfate 75 MG DAILY 06/23 0900 AC 07/02 PO 0816 Furosemide 40 MG DAILY 07/02 0900 AC 07/02 PO 0815 Gabapentin 300 MG QPM 06/30 2100 AC 07/01 PO 2125 Hydromorphone HCl 6 MG Q4-6 PRN PRN 07/01 0900 AC 07/02 PO 0609 Metoprolol Tartrate 50 MG BID 06/26 0900 AC 07/02 PO 0816 Nystatin 1 EDE DAILY 06/30 09 AC 07/02 TOP 0923 Omeprazole 40 MG DAILY AC 06/25 1033 AC 07/02 PO 0609 Ondansetron HCl 4 MG Q6P PRN 06/22 2230 AC 06/25 IV 0916 Oxycodone HCl 20 MG Q12H 06/22 2300 AC 07/02 PO 1011 Sodium Chloride 1 SPRAY DAILY NEEDED PRN 06/23 2045 AC 06/25 CHARLENE 0620 Tiotropium [place] 1 PUF DAILY 06/28 1217 AC 07/02 INH 0817 Zolpidem Tartrate 5 MG QPM PRN 06/22 2300 AC 07/01 PO 2315 Last 24 Hrs of Lab/Dar Results Last 24 Hrs of Labs/Mics: Not applicable Assessment/Plan Assessment: Patient is a 72-year-old female with presented with chief complaints of fever and generalized weakness after 2 days found to have pneumonia of left lower lobe and upper lobe of the lung with adjacent pleural effusion, with associated demand ischemia. Past medical history - * COPD on 2 L of oxygen at home * Myelodysplastic syndrome -this last 6 months and treated with Revlimid, currently having pancytopenia * History of rectal cancer (2005) status post multiple surgical intervention and neoadjuvant chemoradiation * History of atrial fibrillation/flutter with spontaneous conversion * History of hypertension Assessment and plan- Discharge today Acute hypoxic respiratory failure with septicemia secondary to left lower lobe and upper lobe pneumonia -possible community-acquired pneumonia - * On the request of Dr. carson we did an ultrasound of the chest, which shows small left-sided effusion * Completed a course of antibiotic * On 3 L of oxygen at the time of discharge * TRC/nebulization * Continue Spiriva and Symbicort * Follow-up blood cultures were negative Myelodysplastic syndrome, leading to pancytopenia * We will continue to hold lenalidomide and patient needs to follow-up to hemato - oncologist as an outpatient. * Patient may need bone marrow examination in future. Pain management - * We will continue tablet gabapentin 300 mg in evening. * The increase the dose of tablet hydromorphone to 6 mg every 4-6 hourly * Tablet OxyContin 20 mg p.o. twice daily. Diet - Regular diet, she refused for extra nutrition and nutrition consult. DVT PPX - not on anticoagulation because of low platelet count CODE STATUS-DNR/DNI Problem List: 1. Pneumonia 2. Pancytopenia Pain Ratin Pain Location: Generalized body ache Pain Goal: Pain 4 or less Pain Plan: Pain medication according to the pain scale Tomorrow's Labs & Rationales: Not applicable DVT/Prophylaxis: early ambulation low risk Vee Cheatham MD 07/02/18 1031: Attending MD Review Statement Attending Statement Attending MD Statement: examined this patient, discuss w/resident/PA/TOUR CONSULTANT, agreed w/resident/PA/TOUR CONSULTANT, reviewed EMR data (avail), discussed with nursing, discussed with case mgmt, reviewed images Attending Assessment/Plan: Patient is doing well. She is down to 3 L of oxygen and actively participating with physical therapy. We have noted pulmonary's recommendations and we are getting an ultrasound just to make sure she does not have a significant pleural effusion. If not then the plan is discharged today with outpatient follow-up. She has myelodysplastic syndrome with pancytopenia and we treated her for a dense pneumonia with sepsis associated with it. She completed antibiotic course today and will leave with close outpatient follow-up. She had an episode of atrial fibrillation but she is refusing anticoagulation given the thrombocytopenia and anemia the risks of bleeding outweigh the benefits.
--- NOTE | 2018-07-02 07:32 | PN- Hematology ---
Subjective Subjective: She is doing better. Breathing has improved. Pain is better. She was able to walk around more yesterday. She denies any nausea or vomiting. She denies any bleeding. Review of Systems: Constitutional: Reports: weakness. Denies: fever. Cardiovascular: Denies: chest pain. Respiratory: Reports: short of breath, continues to improve. Denies: cough, hemoptysis. GI: Denies: abdominal pain, constipation, diarrhea. Neurological/Psychological: Reports: anxiety. Musculoskeletal: Reports: right arm pain Hematologic/Endocrine: Denies: bleeding. Reports: bruising from IV/phleb All Other Systems: Reviewed and Negative Objective Vital Signs and I&Os Vital Signs Date Time Temp Pulse Resp B/P B/P Pulse O2 O2 Flow FiO2 Mean Ox Delivery Rate 07/02 0650 97.7 64 20 128/60 93 Nasal 4.0L Cannula 07/02 0012 96 Nasal 4.0L Cannula 07/02 0000 Nasal 4.0L Cannula 07/01 2217 98.1 85 18 142/68 90 Nasal 4.0L Cannula 07/01 2126 84 142/68 07/01 2000 Nasal 4.0L Cannula 07/01 1626 94 Nasal 4.0L Cannula 07/01 1400 97.9 80 20 140/70 98 Nasal Cannula 07/01 0917 92 Nasal 4.0L Cannula 07/01 0859 94 Nasal 4.0L Cannula 07/01 0818 74 140/80 Intake & Output 07/02 0800 08/03 0000 07/01 1600 / 0800 08 0000 08/ 1600 Intake Total 120 120 400 120 120 400 Output Total 650 1 1000 Balance 120 120 -250 120 119 -600 Intake, Oral 120 120 400 120 120 400 Number 1 1 Bowel Movements Output, Stool 200 1 300 Output, Urine 450 700 Patient 107.757 kg 107.275 kg Weight Weight Bed scale Bed scale Measurement Method Physical Exam: General Appearance: well developed/nourished, no apparent distress, alert, awake , comfortable, obese Respiratory: chest non-tender, no respiratory distress, quiet respiration, decrease breath sound LLL, 4L NC Cardiovascular: regular rate/rhythm Gastrointestinal: soft, non-tender, no organomegaly Extremities: no edema Neurologic/Psych: awake, alert, oriented x 3 Cranial Nerves: normal speech Skin: cool and dry, scattered ecchymoses in the upper extremity, improved. Current Medications: Current Medications Sig/Dontae Start time Last Medication Dose Route Stop Time Status Admin Acetaminophen 650 MG Q4P PRN 06/26 2145 AC 06/30 PO 0848 Albuterol Sulfate 3 ML TID 06/23 2100 AC 07/01 INH 1945 Azithromycin 500 MG DAILY 07/01 0900 AC 07/01 PO 07/02 0901 0818 Budesonide/ 2 PUF BID 06/23 09 AC 07/01 Formoterol Fumarate INH 2125 Calcium Carbonate 500 MG BID PRN 06/25 0700 AC 06/25 PO 0916 Clopidogrel Bisulfate 75 MG DAILY 06/23 0900 AC 07/01 PO 0818 Furosemide 40 MG DAILY 07/02 09 AC PO Gabapentin 300 MG QPM 06/30 2100 AC 07/01 PO 2125 Hydromorphone HCl 6 MG Q4-6 PRN PRN 07/01 0900 AC 07/02 PO 0609 Hydromorphone HCl 4 MG Q4-6 PRN PRN 06/27 1500 DC 07/01 PO 0611 Metoprolol Tartrate 50 MG BID 06/26 0900 AC 07/01 PO 2126 Nystatin 1 EDE DAILY 06/30 0900 AC 07/01 TOP 0822 Omeprazole 40 MG DAILY AC 06/25 1033 AC 07/02 PO 0609 Ondansetron HCl 4 MG Q6P PRN 06/22 2230 AC 06/25 IV 0916 Oxycodone HCl 20 MG Q12H 06/22 2300 AC 07/01 PO 2126 Sodium Chloride 1 SPRAY DAILY NEEDED PRN 06/23 2045 AC 06/25 CHARLENE 0620 Tiotropium [place] 1 PUF DAILY 06/28 1217 AC 07/01 INH 0821 Zolpidem Tartrate 5 MG QPM PRN 06/22 2300 AC 07/01 PO 2315 Assessment/Plan Hematology Assessment/Recommendations: Ms. 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 Her presentation was concerning for infectious etiology. She has likely left lower lobe pneumonia. Breathing continues to improved. She is finishing up her antibiotics. She has no other new symptoms. She will follow up as outpatient. Pneumonia: -continue current antibiotics as per ID/primary -continue to taper oxygen as tolerated Pancytopenia: -transfuse with platelet if <10,000, <20,000 with fever, or <50,000 with bleeding -transfuse with pRBC if hgb <8 -monitor CBC MDS: -continue to hold lenalidomide -follow up as outpatient Please call [phone] with any questions or concerns. Problem List: 1. Pancytopenia 2. Pneumonia 3. MDS (myelodysplastic syndrome) with 5q deletion
--- NOTE | 2018-07-02 07:52 | PN- Pulmonary ---
Subjective HPI/Critical Care Issues: The patient is awake and alert. She is feeling much improved. She is ambulating more. Her oxygen requirements continue to improve. Objective Current Medications: Current Medications Sig/Dontae Start time Last Medication Dose Route Stop Time Status Admin Acetaminophen 650 MG Q4P PRN 06/26 2145 AC 06/30 PO 0848 Albuterol Sulfate 3 ML TID 06/23 2100 AC 07/01 INH 1945 Azithromycin 500 MG DAILY 07/01 09 AC 07/01 PO 07/02 0901 0818 Budesonide/ 2 PUF BID 06/23 0900 AC 07/01 Formoterol Fumarate INH 2125 Calcium Carbonate 500 MG BID PRN 06/25 0700 AC 06/25 PO 0916 Clopidogrel Bisulfate 75 MG DAILY 06/23 09 AC 07/01 PO 0818 Furosemide 40 MG DAILY 07/02 09 AC PO Gabapentin 300 MG QPM 06/30 2100 AC 07/01 PO 2125 Hydromorphone HCl 6 MG Q4-6 PRN PRN 07/01 0900 AC 07/02 PO 0609 Hydromorphone HCl 4 MG Q4-6 PRN PRN 06/27 1500 DC 07/01 PO 0611 Metoprolol Tartrate 50 MG BID 06/26 0900 AC 07/01 PO 2126 Nystatin 1 EDE DAILY 06/30 09 AC 07/01 TOP 0822 Omeprazole 40 MG DAILY AC 06/25 1033 AC 07/02 PO 0609 Ondansetron HCl 4 MG Q6P PRN 06/22 2230 AC 06/25 IV 0916 Oxycodone HCl 20 MG Q12H 06/22 2300 AC 07/01 PO 2126 Sodium Chloride 1 SPRAY DAILY NEEDED PRN 06/23 2045 AC 06/25 CHARLENE 0620 Tiotropium [place] 1 PUF DAILY 06/28 1217 AC 07/01 INH 0821 Zolpidem Tartrate 5 MG QPM PRN 06/22 2300 AC 07/01 PO 2315 Vital Signs & I&O Last 24 Hrs of Vitals and I&O: Vital Signs Date Time Temp Pulse Resp B/P B/P Pulse O2 O2 Flow FiO2 Mean Ox Delivery Rate 07/02 0650 97.7 64 20 128/60 93 Nasal 4.0L Cannula 07/02 0012 96 Nasal 4.0L Cannula 07/02 0000 Nasal 4.0L Cannula 08/02 2217 98.1 85 18 142/68 90 Nasal 4.0L Cannula 07/01 2126 84 142/68 07/01 2000 Nasal 4.0L Cannula 07/01 1626 94 Nasal 4.0L Cannula 07/01 1400 97.9 80 20 140/70 98 Nasal Cannula 07/01 0917 92 Nasal 4.0L Cannula 07/01 0859 94 Nasal 4.0L Cannula 07/01 0818 74 140/80 Intake & Output 07/02 0800 07/02 0000 07/01 1600 Intake Total 120 120 400 Output Total 650 Balance 120 120 -250 Intake, Oral 120 120 400 Number 1 Bowel Movements Output, Stool 200 Output, Urine 450 Patient 238 lb Weight Weight Bed scale Measurement Method Exam General Appearance: alert, awake, comfortable, no distress Head: atraumatic, normal appearance Neck: normal inspection, supple Respiratory: chest non-tender, respiratory distress, scattered rhonchi b/l Cardiovascular: regular rate/rhythm Gastrointestinal: normal bowel sounds, soft, non-tender, no organomegaly, ileostomy noted Extremities: normal inspection, normal capillary refill Results Last 24 Hrs of Lab Results: None available. Diagnostic Data CXR Findings: Left lower lobe haziness has slightly improved from 06/27/2018. Underlying consolidation, effusion or atelectasis is suspected. Impression/Plan Impression/Plan Impression/Plan: 1. Left lower lobe pneumonia, with sepsis. 2. Acute hypoxemic respiratory failure secondary to pneumonia. 3. History of COPD, intermittently oxygen dependent, with improved bronchospasm. 4. Pancytopenia. 5. Myelodysplastic syndrome. 6. Previous rectal cancer s/p multiple surgical interventions and neoadjuvant chemoradiation. 7. Recent blood loss anemia. Hemoglobin currently stable. 8. Atrial flutter/fibrillation with spontaneous conversion. 9. Mildly elevated troponin secondary to demand ischemia. 10. History of hypertension. 11. Chronic pain. Recommendations: * Check a left chest ultrasound this morning to evaluate the patient for increasing effusion, and the possible need for thoracentesis. Please do YURI so this can get done today if necessary. * Azithro to be completed yesterday per ID. * [place]ine to titrate oxygen for saturations greater than 92%. * Continue nebs/TRC. * Spiriva 1 inhalation daily. * Continue Symbicort 2 puffs every 12 hours. * PT/ambulate/increase activity. * DVT prophylaxis at all times. * Continue all supportive care.
[2018-07-02 08:16] VITALS: BP 164/68
[2018-07-02] MEDS ORDERED: GABAPENTIN300 M2 PO ×2 (09:02→11:08)
--- NOTE | 2018-07-02 10:47 | ULTRASOUND REPORT ---
EXAMINATION: US PLEURAL EFFUSION CLINICAL INFORMATION: 72-year-old female with shortness of breath and left lung pneumonia. COMPARISON: Chest done on 07/01/2018. TECHNIQUE: Targeted ultrasound of both pleural space. FINDINGS: No sonographic evidence of right-sided pleural effusion present. Small left-sided pleural effusion is seen. IMPRESSION: Small left pleural effusion.
[2018-07-02] MEDS ORDERED: HYDROMORPHONE HC2 M1 PO (11:10)
[2018-07-02] MEDS ORDERED: NYSTATIN15 GM TOP (11:39)
--- NOTE | 2018-07-02 11:47 | PN- Infect Dx ---
Subjective Subjective: Afebrile. She feels well with no complaints. She is apparently ambulating well. Objective Last 24 Hrs of Vital Signs/I&O Vital Signs Date Time Temp Pulse Resp B/P B/P Pulse O2 O2 Flow FiO2 Mean Ox Delivery Rate 07/02 0910 93 Nasal 3.0L Cannula 07/02 0816 79 164/68 07/02 0800 95 Nasal 3.0L Cannula 07/02 0650 97.7 64 20 128/60 93 Nasal 4.0L Cannula 07/02 0012 96 Nasal 4.0L Cannula 07/02 0000 Nasal 4.0L Cannula 07/01 2217 98.1 85 18 142/68 90 Nasal 4.0L Cannula 07/01 2126 84 142/68 07/01 2000 Nasal 4.0L Cannula 07/01 1626 94 Nasal 4.0L Cannula 07/01 1400 97.9 80 20 140/70 98 Nasal Cannula Intake & Output 07/02 1600 07/02 0800 07/02 0000 Intake Total 120 120 Output Total Balance 120 120 Intake, Oral 120 120 Number 1 Bowel Movements Patient 226 lb 238 lb Weight Weight Bed scale Bed scale Measurement Method Physical Exam Other Physical Findings: She appears comfortable in no acute distress Lungs bibasilar crackles Heart regular rhythm with no murmur Extremities trace edema of the left lower extremity Results Last 24 Hours of Lab Results: No labs from today Last 24 Hours of Dar Results: No recent cultures Recent Imaging Studies: Chest x-ray July 01 decreased left lower lobe haziness Ultrasound of the chest July 02 reveals a small left pleural effusion Assessment/Plan ID Impression: Continued improvement, with her temperatures remaining normal and with a further decrease in her oxygen requirements, on Azithromycin, Day 10 of treatment for a left upper lobe pneumonia. The ultrasound reveals a small left pleural effusion , possibly parapneumonic, and, given her overall improvement, doubt empyema. She remains pancytopenic secondary to her myelodysplastic syndrome; therefore her white blood cell count is not a useful parameter to follow. Suggestion: 1. Discontinue Azithromycin and follow off antibiotics
[2018-07-02] MEDS ORDERED: LOPRESSOR50 M1 PO (13:33)
== END 2018-07-02 13:35 | disposition home health service (06) | DRG 871 ==
LOC: ERH 17:52 → ERHI 21:38 → CRI 21:38 → 1NO 21:38 → ERHI 06-23 09:03 → ENRESERV 06-23 13:33 → ENTRNSPT 06-23 15:12 → EDTRNSPT 06-23 15:25 → EDTRNSPTSTS 06-23 15:25 → CMPTRNSPT 06-23 15:31 → 1NO 06-23 15:34 → ENTRNSPT 06-24 12:29 → EDTRNSPTSTS 06-24 12:45 → CRI 06-24 12:47 → CMPTRNSPT 06-24 12:52 → 1NO 06-27 18:58 → ENPENDDIS 07-02 11:12 → 1NO 07-02 13:35 → ENTRNSPT 07-02 13:42 → CMPTRNSPT 07-02 14:00
PROVIDERS: Emergency Medicine; Hospitalist; Internal Medicine; Preventive Medicine Public Health & General Preventive Medicine; Student in an Organized Health Care Education/Training Program
PROC: 5A09357 Assistance with Respiratory Ventilation, Less than 24 Consecutive Hours, Continuous Positive Airway Pressure (ICD-10-PCS; principal; 2018-06-24)
DX: A41.9 Sepsis, unspecified organism (principal); J18.9 Pneumonia, unspecified organism; J96.21 Acute and chronic respiratory failure with hypoxia; C79.51 Secondary malignant neoplasm of bone; J44.1 Chronic obstructive pulmonary disease with (acute) exacerbation; D61.818 Other pancytopenia; I24.8 Other forms of acute ischemic heart disease; I48.92 Unspecified atrial flutter; J44.0 Chronic obstructive pulmonary disease with (acute) lower respiratory infection; Z99.81 Dependence on supplemental oxygen; I27.20 Pulmonary hypertension, unspecified; I48.0 Paroxysmal atrial fibrillation; D46.9 Myelodysplastic syndrome, unspecified; K21.9 Gastro-esophageal reflux disease without esophagitis; I10 Essential (primary) hypertension; G89.29 Other chronic pain; E66.9 Obesity, unspecified; Z68.36 Body mass index [BMI] 36.0-36.9, adult; Z91.011 Allergy to milk products; Z88.8 Allergy status to other drugs, medicaments and biological substances; Z92.21 Personal history of antineoplastic chemotherapy; Z87.891 Personal history of nicotine dependence; Z85.048 Personal history of other malignant neoplasm of rectum, rectosigmoid junction, and anus
CPT/HCPCS: 1NP; CCU; ERO; 36415; 36592; 71045; 81001; 82436; 87040; 87070; 87449; 87450; 93005; 93010; 96361; 96365; 96366; 96375; 97110-GO; 97116-GO; 97161-GP; 97165-GO; 97530-GO; 99291; J0131; J0456; J0696; J0713; J1885; J2405; J2550; J2930; J3370; J3490; J7040